=== PATIENT | male | born 1970 | race Caucasian/White ===

== ENCOUNTER 2016-10-06 18:46 | Emergency (ER) | payer OTHER ==
[~2016-10-06] VITALS: Ht 182.9 cm; Wt 94.3 kg
[~2016-10-06 18:46] MED LIST: KEFLEX250 MG PO; MOTRIN600 MG PO; NORVASC10 MG PO; PROVENTIL HFA M18 GM INH; SEPTRA PO
[2016-10-06 18:48] VITALS: BP 153/114
--- NOTE | 2016-10-06 19:02 | NUR ---
46 YO MALE BIB [place] [employer] FOR PREBOOK C/O HIP PAIN AWAKE AND ALERT TO OVERFLOW 4 MD TIFFANY PENDING.
--- NOTE | 2016-10-06 19:14 | NUR ---
Dr. Monterroso evaluating patient
--- NOTE | 2016-10-06 19:21 | NUR ---
PATIENT BIB [facility]. PATIENT EXAMINED BY DR. CERNA. PATIENT MEDICALLY CLEARED AND RELEASED IN CUSTODY IN STABLE CONDITION. ORIGINAL PRE-BOOK FORM GIVEN TO OFFICER WENCESLAO.
[2016-10-06 19:22] VITALS: BP 153/114
== END 2016-10-06 19:21 ==
LOC: MED 18:46
DX: G89.29 Other chronic pain (principal); M25.551 Pain in right hip; J45.909 Unspecified asthma, uncomplicated; E11.9 Type 2 diabetes mellitus without complications; F17.210 Nicotine dependence, cigarettes, uncomplicated

== ENCOUNTER 2018-01-07 21:14 | Emergency (ER) | payer SELFPAY ==
[~2018-01-07] VITALS: Ht 182.9 cm; Wt 97.5 kg
[~2018-01-07 21:14] MED LIST changes: +ALBU0.0912 INH; +AMLO10TA PO; +CEPH250C16 PO; +IBUP-2213 PO; -KEFLEX250 MG PO; -MOTRIN600 MG PO; -NORVASC10 MG PO; -PROVENTIL HFA M18 GM INH; -SEPTRA PO; +[UNRECOGNIZED DRUG - CODE] PO
[2018-01-07 21:17] VITALS: BP 176/101
[2018-01-07 21:36] VITALS: BP 157/95
== END 2018-01-07 21:35 ==
LOC: MED 21:14
DX: Z02.89 Encounter for other administrative examinations (principal); I10 Essential (primary) hypertension; J45.909 Unspecified asthma, uncomplicated; E11.9 Type 2 diabetes mellitus without complications; F17.210 Nicotine dependence, cigarettes, uncomplicated; F15.10 Other stimulant abuse, uncomplicated; Z79.899 Other long term (current) drug therapy
CPT/HCPCS: 12001; 90471; 99283; 99284

== ENCOUNTER 2018-02-06 13:26 | Inpatient (IN) | payer MEDICAID ==
[~2018-02-06] VITALS: Ht 182.9 cm; Wt 96.2 kg
[2018-02-06 13:34] VITALS: BP 140/87
[2018-02-06] MEDS ORDERED: NACL 0.9% 500 ML IV SCH (13:37)
--- NOTE | 2018-02-06 13:37 | NUR ---
C/O R LEG SWELLING, REDNESS, PAIN 10/10 X 2 DAYS, NO OTHER COMPLAINTS, DENIES INJURY. HX: HEP C, ASTHMA, DIABETES, HTN MEDS--- NONE
--- NOTE | 2018-02-06 13:37 | NUR ---
PT WC'D TO BED 7
--- NOTE | 2018-02-06 13:39 | NUR ---
Omar ortega in EDM - 02/06/18 at 1339 by [email or web address] C/O R LEG SWELLING, REDNESS, PAIN 02/03 X 2 DAYS, NO OTHER COMPLAINTS, DENIES INJURY. HX: HEP C, ASTHMA, DIABETES, HTN MEDS--- NONE
--- NOTE | 2018-02-06 13:39 | NUR ---
REPORT TO PAM REEVES
[2018-02-06] MEDS ORDERED: ONDANSETRON 4 MG/2 ML VIAL IVP ONE (13:40)
[2018-02-06] MEDS ORDERED: CLINDAMYCIN 900 MG in DEXTROSE 5% 100 ML IV ONE (13:40)
[2018-02-06] MEDS ORDERED: MORPHINE SULFATE 4 MG/ML SYR IVP ONE (13:40)
[2018-02-06] MEDS ORDERED: KETOROLAC 30 MG/ML VIAL IVP ONE (13:40)
[2018-02-06 13:54] LABS: BASOPHILS # (AUTO) 0.3 K/uL (0.00-0.22); HEMATOCRIT 43.4 % (36-52); HEMOGLOBIN 14.2 g/dL (12.0-18.0); LYMPHOCYTES # (AUTO) 0.7 K/uL (2.0-11.5); LYMPHOCYTES % (AUTO) 2.7 % (20.5-51.1); MEAN CORPUSCULAR HEMOGLOBIN 27 pg (27-31); MEAN CORPUSCULAR HGB CONC 33 g/dL (33-37); MONOCYTES # (AUTO) 1.3 K/uL (0.8-1.0); MONOCYTES % (AUTO) 5.1 % (1.7-9.3); NEUTROPHILS # (AUTO) 22.7 K/uL (1.8-7.7); NEUTROPHILS % (AUTO) 91.2 % (42.2-75.2); PLATELET COUNT (AUTO) 184 K/uL (140-450); RED BLOOD CELL COUNT(AUTO) 5.24 MIL/uL (4.20-6.10); RED CELL DISTRIBUTION WIDTH 14.8 % (11.6-13.7); WHITE BLOOD COUNT (AUTO) 24.9 K/uL (4.8-10.8)
[2018-02-06] MEDS ORDERED: CLINDAMYCIN 900 MG/6 ML VIAL IV ONE ×2 (14:01→21:21)
[2018-02-06] MEDS ORDERED: ONDANSETRON 4 MG/2 ML VIAL ONE (14:01)
[2018-02-06] MEDS ORDERED: KETOROLAC 30 MG/ML VIAL ONE (14:02)
[2018-02-06] MEDS ORDERED: MORPHINE SULFATE 4 MG/ML SYR ONE (14:04)
[2018-02-06 14:29] LABS: ANION GAP 11.9 (8-16); CARBON DIOXIDE 25.7 mmol/L (21-32); CREATININE 1.1 mg/dL (0.7-1.3); POTASSIUM 3.6 mmol/L (3.5-5.1)
[2018-02-06 14:35] LABS: ALBUMIN 2.9 g/dL (3.4-5.0); TOTAL BILIRUBIN 1.6 mg/dL (0.0-1.0)
[2018-02-06] MEDS ORDERED: NACL 0.9% 1,000 ML IV SCH (14:52)
[2018-02-06] MEDS ORDERED: ONDANSETRON 4 MG/2 ML VIAL IM/IVP PRN (15:05)
[2018-02-06] MEDS ORDERED: ALBUTEROL SULFATE/IPRATROPIU 3 ML SOL IH PRN (15:05)
[2018-02-06] MEDS ORDERED: ACETAMINOPHEN 325 MG TAB PO PRN (15:05)
[2018-02-06] MEDS ORDERED: DOCUSATE SODIUM 100 MG GELCAP PO PRN (15:05)
[2018-02-06] MEDS ORDERED: HYDROcodone/APAP 7.5/325 MG 1 TAB PO PRN (15:05)
--- NOTE | 2018-02-06 15:14 | NUR ---
XRAY AT BEDSIDE
[2018-02-06] MEDS ORDERED: MORPHINE SULFATE 2 MG/ML SYR IVP PRN (15:20)
[2018-02-06] MEDS: THERAHONEY GEL 42.5 GM TP SCH (15:35)
[2018-02-06] MEDS ORDERED: COMPOSITE DRESSING TP PRN (15:35)
--- NOTE | 2018-02-06 15:48 | NUR ---
PT TAKEN TO FLOOR BY RN PAM, EMT EVONNE, AND RN STUDENT
[2018-02-06 15:50] VITALS: BP 112/68
--- NOTE | 2018-02-06 15:50 | NUR ---
PATIENT WAS TRANSFERRED FROM IN [facility]. PATIENT TRANSFERRED SELF TO BED. REPORT WAS GIVEN AT BEDSIDE. VS WAS TAKEN, MRSA WAS SWABBED. PATIENT WAS AWAKE, ALERT. RESPIRATION EVEN, UNLABOR ON ROOM AIR. SKIN DRY AND WARM. IV PATENT AND INTACT. WOUND DRESSING IS DRY AND CLEAN. DENIED PAIN AT THIS TIME. PATIENT WAS ORIENTED TO ROOM, STAFF, AND CALL LIGHT. PLAN OF CARE WAS DISCUSSED WITH PATIENT. BED AT LOW POSITION, SIDE RAILS UP. CALL LIGHT WITHIN REACH. MD WAS AT BEDSIDE
[2018-02-06 15:51] LABS: PROTHROMBIN TIME 10.8 secs (10.8-13.4)
[2018-02-06 15:54] LABS: CHOL/HDL RATIO 2.4 (1-4.5); PHOSPHORUS 1.7 mg/dL (2.5-4.9); THYROID STIMULATING HORMONE 2.59 uIU/mL (0.34-3.74)
--- NOTE | 2018-02-06 15:55 | NUR ---
Patient will be admitted to care of DR. LY. Admited to [facility]. Will go to room 113. Belongings list completed. Report to LALA.
[2018-02-06] MEDS ORDERED: DEXTROSE 50% 50 ML SYR IVP PRN (16:20)
[2018-02-06] MEDS ORDERED: INSULIN LISPRO SLIDING SCALE 100 UNITS/ML VIAL SUBQ PRN (16:20)
[2018-02-06] MEDS: NACL 0.9% 1,000 ML IV SCH (16:25)
--- NOTE | 2018-02-06 17:15 | NUR ---
PATIENT COMPLAINED OF LEG PAIN 11/03, WILL MEDICATE PER ORDER
[2018-02-06] MEDS: BLOOD GLUCOSE MONITORING 1 DEV DEV FS SCH ×2 (17:24→21:10)
[2018-02-06] MEDS: KETOROLAC 30 MG/ML VIAL IVP PRN ×2 (17:35→23:49)
[2018-02-06] MEDS ORDERED: INFLUENZA VIRUS VACCINE QUAD 0.5 ML SYR IMVAC PRN (17:55)
[2018-02-06] MEDS ORDERED: PNEUMOCOCCAL VACCINE 23 MCG/0.5 ML VIAL IMVAC SCH (17:55)
--- NOTE | 2018-02-06 19:18 | NUR ---
ENDORSEMENT GIVEN TO THE CORPORATE SPECIALIST NURSE. PATIENT IS STABLE AT THIS TIME
--- NOTE | 2018-02-06 19:18 | NUR ---
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 PT DENIES PAIN AT THIS TIME. EXPLAINED PLAN OF CARE, UPDATED BOARD, CALL LIGHT WITHIN REACH, WILL CONTINUE TO MONITOR.
[2018-02-06] MEDS: CLINDAMYCIN 900 MG in DEXTROSE 5% 100 ML IV SCH (21:29)
--- NOTE | 2018-02-06 21:30 | NUR ---
DUE MEDICATION GIVEN, BG 145 NO COVERAGE NEEDED. CALL LIGHT WITHIN REACH, WILL CONTINUE TO MONITOR.
[2018-02-06 23:49] VITALS: BP 125/75
--- NOTE | 2018-02-06 23:49 | NUR ---
PT C/O PAIN IN RIGHT LEG, MEDICATED ACCORDING TO MD ORDER.
[2018-02-07] MEDS: NACL 0.9% 1,000 ML IV SCH ×3 (01:17→20:40)
--- NOTE | 2018-02-07 01:32 | NUR ---
PT RESTING IN BED, NO SIGNS OF DISTRESS, APPLIED NEW PADDING UNDER LEG, MODERATE DRAINAGE NOTED WITH ODOR.
--- NOTE | 2018-02-07 04:00 | NUR ---
PT SLEEPING IN BED, NO SIGNS OF ACUTE DISTRESS, WILL GIVE DUE ANTIBIOTIC. CALL LIGHT WITHIN REACH.
[2018-02-07] MEDS: CLINDAMYCIN 900 MG in DEXTROSE 5% 100 ML IV SCH ×3 (04:40→20:28)
--- NOTE | 2018-02-07 06:15 | NUR ---
BG 116 NO COVERAGE NEEDED, CALL LIGHT WITHIN REACH, WILL CONTINUE TO MONITOR.
[2018-02-07] MEDS: BLOOD GLUCOSE MONITORING 1 DEV DEV FS SCH ×4 (06:38→20:40)
--- NOTE | 2018-02-07 07:14 | NUR ---
ENDORSED PT TO DAY SHIFT NURSE PT IN BED ASLEEP, PT STABLE.
[2018-02-07 07:25] LABS: HEMATOCRIT 37.4 % (36-52); HEMOGLOBIN 12.1 g/dL (12.0-18.0); MEAN CORPUSCULAR HEMOGLOBIN 27 pg (27-31); MEAN CORPUSCULAR HGB CONC 32 g/dL (33-37); MEAN CORPUSCULAR VOLUME 83.8 fL (80-94); PLATELET COUNT (AUTO) 151 K/uL (140-450); RED BLOOD CELL COUNT(AUTO) 4.46 MIL/uL (4.20-6.10); RED CELL DISTRIBUTION WIDTH 15.1 % (11.6-13.7); WHITE BLOOD COUNT (AUTO) 18.1 K/uL (4.8-10.8)
[2018-02-07 07:27] LABS: ANION GAP 8.6 (8-16); CARBON DIOXIDE 26.3 mmol/L (21-32); CREATININE 0.9 mg/dL (0.7-1.3); POTASSIUM 3.9 mmol/L (3.5-5.1)
[2018-02-07 07:31] LABS: MAGNESIUM 2.1 mg/dL (1.8-2.4); PHOSPHORUS 2.9 mg/dL (2.5-4.9)
--- NOTE | 2018-02-07 07:40 | NUR ---
PATIENT WAS SLEEPING COMFORTABLY, EASILY AROUSABLE BY NAME. RESPIRATION EVEN, UNLABOR ON ROOM AIR. SKIN DRY AND WARM. IV PATENT AND INTACT. DENIED PAIN AT THIS TIME. PLAN OF CARE WAS DISCUSSED WITH PATIENT. BED AT LOW POSITION, SIDE RAILS UP. CALL LIGHT WITHIN REACH
[2018-02-07 08:00] VITALS: BP 103/66
[2018-02-07 08:00] LABS: BASOPHILS % (MANUAL) 0 % (0-2); EOSINOPHILS % (MANUAL) 0 % (0-4); LYMPHOCYTES % (MANUAL) 3 % (20-46); MONOCYTES % (MANUAL) 8 % (5-12)
[2018-02-07] MEDS: amLODIPine 5 MG TAB PO SCH (08:39)
[2018-02-07] MEDS: THERAHONEY GEL 42.5 GM TP SCH (08:40)
[2018-02-07] MEDS: LACTOBACILLUS RHAMNOSUS GG 1 EACH CAP PO SCH (08:40)
--- NOTE | 2018-02-07 08:50 | NUR ---
PATIENT'S TEMP WAS 100.4, TYLENOL WAS GIVEN PER ORDER. WILL CONTINUE TO MONITOR
--- NOTE | 2018-02-07 10:30 | NUR ---
PATIENT WAS SLEEPING COMFORTABLY. RESPIRATION EVEN, UNLABOR ON ROOM AIR. NO DISTRESS NOTED AT THIS TIME. WOUND DRESSING WAS CHANGED.
--- NOTE | 2018-02-07 11:50 | NUR ---
PATIENT WAS SLEEPING COMFORTABLY. RESPIRATION EVEN, UNLABOR ON ROOM AIR. NO DISTRESS NOTED AT THIS TIME. MEDS WERE GIVEN PER ORDER. URINE SAMPLE WAS COLLECTED AND SENT TO LAB. CALL LIGHT WITHIN REACH
[2018-02-07 12:11] LABS: APPEARANCE,URINE SLIGHTLY HAZY (CLEAR); BILIRUBIN,URINE 1+ (NEGATIVE); BLOOD, URINE NEGATIVE (NEGATIVE); COLOR,URINE AMBER (YELLOW); LEUKOCYTE ESTERASE ,URINE NEGATIVE (NEGATIVE); NITRITE, URINE NEGATIVE (NEGATIVE); UGLUCOSE TRACE (NEGATIVE)
[2018-02-07 12:18] LABS: BARBITURATE, URINE NEG. ng/ml (NEG <=200); BENZODIAZEPINE, URINE NEG. ng/mL (NEG <=200); CANNABINOID, URINE NEG. ng/mL (NEG <=50); COCAINE, URINE NEG. ng/mL (NEG <=300); OPIATE, URINE NEG. ng/mL (NEG <=2000); PHENCYCLIDINE SCREEN,URINE NEG. ng/mL (NEG <=25)
[2018-02-07 12:22] LABS: WBC,URINE 0-5 (RARE) /HPF (0-5)
[2018-02-07 12:23] LABS: RBC,URINE NONE SEEN /HPF (0-5)
--- NOTE | 2018-02-07 14:10 | NUR ---
PATIENT WAS SLEEPING COMFORTABLY. RESPIRATION EVEN, UNLABOR ON ROOM AIR. NO DISTRESS NOTED AT THIS TIME
[2018-02-07 16:00] VITALS: BP 140/73
--- NOTE | 2018-02-07 16:00 | NUR ---
PATIENT WAS SLEEPING COMFORTABLY. RESPIRATION EVEN, UNLABOR ON ROOM AIR. DENIED PAIN AT THIS TIME. NO DISTRESS NOTED AT THIS TIME
--- NOTE | 2018-02-07 18:21 | NUR ---
PATIENT AWAKE, ALERT. RESPIRATIONE EVEN, UNLABOR ON ROOM AIR. IV PATENT AND INTACT. NO DISTRESS NOTED AT THIS TIME. FAMILY AT BEDSIDE. CALL LIGHT WITHIN REACH
--- NOTE | 2018-02-07 19:15 | NUR ---
RECEIVED BEDSIDE REPORT FROM DAY SHIFT RN NESSA, PT ON CONTACT PRECAUTIONS, PT IN BED, STATES IS COMFORTABLE AT THIS TIME. ON RA, IV IN LEFT AC 22 G INFUSING NS AT 100 ML/HR, DRESSING IS CLEAN AND INTACT. EIGHT LOWER LEG DRESSING IS CLEAN AND INTACT. PT REPORTS SLIGHT PAIN BUT IS OKAY RIGHT NOW. EMPTIED URINAL 200 ML, DARK YELLOW. EXPLAINED PLAN OF CARE, UPDATED BOARD, CALL LIGHT WITHIN REACH. WILL CONTINUE TO MONITOR.
--- NOTE | 2018-02-07 19:15 | NUR ---
ENDORSEMENT GIVEN TO THE ENVIRONMENTAL ASSISTANT NURSE. PATIENT IS STABLE AT THIS TIME
--- NOTE | 2018-02-07 20:00 | NUR ---
PT REPORT HAVING DIFFICULTY BREATHING, CALL R/T, PLACED HOB TO 90 DEGREES, PLACED PT ON 2 L NC, O2 SAT 94 WITH 2 L O2 VIA NC RR 22 LABORED AND EVEN. R/T ARRIVED TO DO BREATHING TX. Addendum: 02/07/18 at 2333 by Sanjana Linder RN INSPIRATORY WHEEZING NOTED
--- NOTE | 2018-02-07 20:18 | NUR ---
PT C/O PAIN IN LEG, 10/04, WILL MEDICATE ACCORDING TO MD ORDER.
[2018-02-07] MEDS: KETOROLAC 30 MG/ML VIAL IVP PRN (20:28)
--- NOTE | 2018-02-07 20:28 | NUR ---
DUE CLEOCIN GIVEN, NO INSULIN COVERAGE NEEDED, WILL CONTINUE TO MONITOR.
--- NOTE | 2018-02-07 20:30 | NUR ---
NO SIGNS OF RESPIRATORY DISTRESS, PT COMFORTABLE IN BED, CALL LIGHT WITHIN REACH, NO INSPIRATORY WHEEZING NOTED.
--- NOTE | 2018-02-07 23:00 | NUR ---
PT RESTING IN BED NO SIGNS OF DISTRESS, CALL LIGHT WITHIN REACH, WILL CONTINUE TO MONITOR.
[2018-02-08] VITALS: BP 145/80
--- NOTE | 2018-02-08 01:10 | NUR ---
PT SLEEPING IN BED, DRESSING IS CLEAN AND INTACT, CALL LIGHT WITHIN REACH, WILL CONTINUE TO MONITOR.
--- NOTE | 2018-02-08 02:30 | NUR ---
PT RESTING IN BED, NO SIGNS OF ACUTE DISTRESS, CALL LIGHT WITHIN REACH, WILL CONTINUE TO MONITOR.
--- NOTE | 2018-02-08 04:00 | NUR ---
PT IN BED NO SIGNS OF DISTRESS CALL LIGHT WITHIN REACH, WILL CONTINUE TO MONITOR.
[2018-02-08] MEDS: CLINDAMYCIN 900 MG in DEXTROSE 5% 100 ML IV SCH ×3 (05:54→20:45)
--- NOTE | 2018-02-08 06:30 | NUR ---
PT BLOOD GLUCOSE 102 NO INSULIN NEEDED AT THIS TIME. WILL CONTINUE TO MONITOR.
[2018-02-08] MEDS: NACL 0.9% 1,000 ML IV SCH ×2 (07:04→17:04)
--- NOTE | 2018-02-08 07:20 | NUR ---
ENDORSED PT TO DAY SHIFT NURSE, PATIENT STABLE.
--- NOTE | 2018-02-08 07:22 | NUR ---
RECEIVED REPORT FROM AFFILIATE MARKETING COORDINATOR NURSE. PT IS SLEEPING IN BED, SEMI FOWLERS POSITION, PT IS EASILY AWAKEN, AAOX4, AMBULATORY, PT HAS IV ON THE LEFT AC, PATENT, INTACT, FLUSHING WELL, PT HAS RIGHT LOWER EXT. CELLULITIS, NO S/S OF RESPIRATORY DISTRESS OR DISCOMFORT NOTED, PT IS ON ROOM AIR, DISCUSSED PLAN OF CARE WITH PT, PT VERBALIZED UNDERSTANDING, SAFETY/FALL PRECAUTIONS ARE IN PLACE, CALL LIGHT IS WITHIN REACH, WILL CONTINUE TO MONITOR.
[2018-02-08] MEDS: BLOOD GLUCOSE MONITORING 1 DEV DEV FS SCH ×4 (07:36→20:45)
[2018-02-08 07:45] LABS: BASOPHILS # (AUTO) 0.1 K/uL (0.00-0.22); BASOPHILS % (AUTO) 0.3 % (0.0-2.0); EOSINOPHILS # (AUTO) 0.2 K/uL (0-0.4); HEMATOCRIT 41.4 % (36-52); LYMPHOCYTES # (AUTO) 1.1 K/uL (2.0-11.5); LYMPHOCYTES % (AUTO) 6.8 % (20.5-51.1); MEAN CORPUSCULAR HEMOGLOBIN 27 pg (27-31); MEAN CORPUSCULAR HGB CONC 32 g/dL (33-37); MEAN CORPUSCULAR VOLUME 84.3 fL (80-94); MONOCYTES # (AUTO) 1.2 K/uL (0.8-1.0); MONOCYTES % (AUTO) 7.3 % (1.7-9.3); NEUTROPHILS # (AUTO) 14.1 K/uL (1.8-7.7); NEUTROPHILS % (AUTO) 84.6 % (42.2-75.2); PLATELET COUNT (AUTO) 198 K/uL (140-450); RED BLOOD CELL COUNT(AUTO) 4.91 MIL/uL (4.20-6.10); RED CELL DISTRIBUTION WIDTH 15.1 % (11.6-13.7); WHITE BLOOD COUNT (AUTO) 16.7 K/uL (4.8-10.8)
[2018-02-08 08:00] VITALS: BP 98/59
[2018-02-08 08:11] LABS: HEPATITIS A ANTIBODY IGM Negative (Negative); HEPATITIS B CORE AB TOTAL Negative (Negative); HEPATITIS B SURFACE ANTIBODY Non Reactive (.); HEPATITIS B SURFACE ANTIGEN Negative (Negative)
[2018-02-08 08:34] LABS: ANION GAP 11.5 (8-16); CARBON DIOXIDE 25.3 mmol/L (21-32); CREATININE 0.8 mg/dL (0.7-1.3); POTASSIUM 3.8 mmol/L (3.5-5.1)
--- NOTE | 2018-02-08 08:39 | NUR ---
PATIENT HAS BEEN SCREENED AND CATEGORIZED MODERATE NUTRITION RISK. PATIENT WILL BE SEEN WITHIN 3-5 DAYS OF ADMISSION. 02/09/18 02/11/[address]
[2018-02-08] MEDS: amLODIPine 5 MG TAB PO SCH (08:50)
[2018-02-08] MEDS: LACTOBACILLUS RHAMNOSUS GG 1 EACH CAP PO SCH (08:53)
[2018-02-08] MEDS: THERAHONEY GEL 42.5 GM TP SCH (08:53)
--- NOTE | 2018-02-08 08:53 | NUR ---
PATIENT IS SLEEPING IN BED AT THIS TIME, NO S/S OF DISTRESS OR DISCOMFORT NOTED, CALL LIGHT IS WITHIN REACH.
--- NOTE | 2018-02-08 12:11 | NUR ---
WOUND CARE EVALUATION NOTE: REASON FOR EVALUATION: RIGHT LOWER LEG CELLULITIS SKIN ASSESSMENT DONE WITH THIS 29 Y/O MALE PT ADMITTED TO [facility] WITH INITIAL DX OF RLE PAIN. PAST MEDICAL HX INCLUDES HTN, ASTHMA AND IV DRUG USE. ALL ABOVE INFORMATION OBTAINED FROM ADMISSION H&P. PT IS AWAKE. SKIN IS WARM AND DRY, BLE NO HAIR GROWTH, +2 EDEMA TO RIGHT LOWER LEG FROM BELOW KNEE TO DORSAL FOOT. OLD HEALED SCARS TO LLE. BILATERAL DORSAL PEDAL PULSES PRESENT AND NORMAL. CAPILLARY REFILLED < 2 SEC. X 10 TOES. THICK CALLUS TO PLANTAR FEET.PLAN OF CARE DISCUSSED WITH PRIMARY RN AND PT. INTEGUMENTARY: -MULTIPLE TATTOO TO UPPER BODY -LEFT HEEL THICK CALLUS WITH A 2CM IN LENGTH OF DRY CRACKED HEEL -RIGHT POSTERIOR LEG (CALF) CELLULITIS WOUND 6X4X0.1, WOUND BED MOIST, PERIWOUND ERYTHEMA, WARM AND +2 EDEMA AND THIN FRAGILE SKIN. PAIN 5/10 -RIGHT LATERAL BETO-ANKLE CELLULITIS WOUND 3X3X0.1 CM, WOUND BED MOIST, PERIWOUND ERYTHEMA, WARM AND +2 EDEMA, WITH THIN FRAGILE SKIN.PAIN 5/10 RECOMMENDATIONS: -RLE US PENDING -APPLY XEROFORM TO RLE CELLULITIS WOUNDS, COVER WITH ABD DRESSING AND APPLY KERLIX ROLL, CHANGE DRESSING Q72 HOURS AND PRN IF SOILING, MONITOR PLACEMENT OF DRESSING Q SHIFT -OFFLOAD BILATERAL HEELS BY PLACING PILLOWS UNDER CALVES UNLESS OTHERWISE CONTRAINDICATED -PRESSURE REDISTRIBUTION SURFACE THERAPY -TURN AND REPOSITION Q2H, OFFLOAD SACRALCOCCYX BY TURNING RIGHT AND LEFT ALL ABOVE RECOMMENDATIONS DISCUSSED WITH PRIMARY RN AND DR. KLEIN WILL FOLLOW UP PT Q7-10 DAYS. PLEASE CONTACT WOUND CARE NURSE FOR ANY QUESTION AND CHANGE OF WOUND CONDITION.
--- NOTE | 2018-02-08 12:40 | NUR ---
PT K PAD APPLIED TO THE RIGHT LOWER EXTREMITY. WILL CONTINUE TO MONITOR.
[2018-02-08 16:00] VITALS: BP 122/87
--- NOTE | 2018-02-08 19:15 | NUR ---
ENDORSED PT TO DRY HOUSE TENDER NURSE FOR CONTINUITY OF CARE. PT STABLE AT THIS TIME.
--- NOTE | 2018-02-08 19:16 | NUR ---
RECEIVED REPORT FROM DAY SHIFT RN, FOR CONTINUITY OF CARE. PT IS A/OX4, ON ROOM AIR. PT IS ABLE TO MAKE NEEDS KNOWN, ABLE TO FOLLOW COMMANDS. PT BREATHS EQUAL AND UNLABORED. PT SKIN HAS CELLULITIS TO LEFT LEG. PT AMBULATES WITH ASSIST, NOT BEARING WEIGHT ON RIGHT LEG. PT HAS A 20G IV TO LEFT AC, ASYMPTOMATIC AND INTACT. DISCUSSED PLAN OF CARE WITH PT, PT VERBALIZED UNDERSTANDING. VITAL SIGNS WITHIN NORMAL LIMITS. PT STABLE, NO SIGNS OF DISTRESS NOTED AT THIS TIME. BED IN LOWEST POSITION, BED ALARM ON. CALL LIGHT WITHIN REACH, WILL CONTINUE TO MONITOR.
--- NOTE | 2018-02-08 20:45 | NUR ---
BLOOD SUGAR 115 AT THE TIME, NO INSULIN COVERAGE NEEDED. IVPB ANTIBIOTIC STARTED, PT TOLERATING WELL.
[2018-02-09] VITALS: BP 117/70
--- NOTE | 2018-02-09 | NUR ---
VITAL SIGNS WITHIN NORMAL LIMITS. PT STABLE, NO SIGNS OF DISTRESS NOTED AT THIS TIME. BED IN LOWEST POSITION, BED ALARM ON. CALL LIGHT WITHIN REACH, WILL CONTINUE TO MONITOR.
[2018-02-09] MEDS: NACL 0.9% 1,000 ML IV SCH ×2 (03:04→12:25)
[2018-02-09] MEDS: CLINDAMYCIN 900 MG in DEXTROSE 5% 100 ML IV SCH ×2 (04:45→12:25)
--- NOTE | 2018-02-09 04:45 | NUR ---
PT HAS 9/10 PAIN AT RIGHT LEG. ADMINISTERED MORPHINE ORDERED AND SCHEDULED ANTIBIOTIC, PT TOLERATED WELL.
[2018-02-09] MEDS: BLOOD GLUCOSE MONITORING 1 DEV DEV FS SCH ×2 (06:15→12:29)
[2018-02-09 07:26] LABS: BASOPHILS % (AUTO) 0.3 % (0.0-2.0); EOSINOPHILS # (AUTO) 0.2 K/uL (0-0.4); EOSINOPHILS % (AUTO) 1.1 % (0.0-4.0); HEMATOCRIT 38.5 % (36-52); HEMOGLOBIN 12.5 g/dL (12.0-18.0); LYMPHOCYTES # (AUTO) 1.4 K/uL (2.0-11.5); LYMPHOCYTES % (AUTO) 9.7 % (20.5-51.1); MEAN CORPUSCULAR HEMOGLOBIN 27 pg (27-31); MEAN CORPUSCULAR HGB CONC 32 g/dL (33-37); MEAN CORPUSCULAR VOLUME 83.1 fL (80-94); MONOCYTES # (AUTO) 1.4 K/uL (0.8-1.0); MONOCYTES % (AUTO) 9.5 % (1.7-9.3); NEUTROPHILS # (AUTO) 11.6 K/uL (1.8-7.7); NEUTROPHILS % (AUTO) 79.4 % (42.2-75.2); PLATELET COUNT (AUTO) 217 K/uL (140-450); RED BLOOD CELL COUNT(AUTO) 4.63 MIL/uL (4.20-6.10); RED CELL DISTRIBUTION WIDTH 15.1 % (11.6-13.7); WHITE BLOOD COUNT (AUTO) 14.6 K/uL (4.8-10.8)
--- NOTE | 2018-02-09 07:30 | NUR ---
RECEIVED BEDSIDE REPORT FROM BOILERMAKER PIPE FITTER RN. PT IS SLEEPING IN BED, AROUSABLE BY VOICE. AOX4, SPEAKS PORTUGUESE. RLE CELLULITIS, DRESSING DRY AND INTACT. PT AMBULATES WITH ASSIST, NWB ON RIGHT LEG. NO COMPLAINTS OF PAIN OR DISCOMFORT. VITALS STABLE. LUNGS CTA AND HEART RHYTHM REGULAR. IV SITE PATENT AND ASYMPTOMATIC, INFUSING IVF PER MD ORDERS. ALL SAFETY PRECAUTIONS IN PLACE, WILL CONTINUE TO MONITOR.
[2018-02-09 07:39] LABS: CREATININE 0.7 mg/dL (0.7-1.3)
[2018-02-09 07:56] LABS: ANION GAP 7.3 (8-16); CARBON DIOXIDE 28.2 mmol/L (21-32); POTASSIUM 3.5 mmol/L (3.5-5.1)
[2018-02-09 08:00] VITALS: BP 143/98
[2018-02-09] MEDS: amLODIPine 5 MG TAB PO SCH (08:59)
[2018-02-09] MEDS: LACTOBACILLUS RHAMNOSUS GG 1 EACH CAP PO SCH (08:59)
[2018-02-09] MEDS: THERAHONEY GEL 42.5 GM TP SCH (09:00)
--- NOTE | 2018-02-09 09:05 | NUR ---
ADMINISTERED SCHEDULED 0900 MEDICATIONS PER DOCTOR ORDERS. PHYSICAL THERAPY HERE TO EVALUATE PT. PT HAS AGREED TO HAVE WOUND CARE AND DRESSING CHANGE PERFORMED AFTER PHYSICAL THERAPY EVAL.
--- NOTE | 2018-02-09 09:36 | NUR ---
PATIENT COMPLAINING OF 5/10 LEG PAIN. PULLED NORCO FROM [employer] AND OFFERED TO PATIENT. PATIENT REFUSED. EXPLAINED THAT NORCO IS FOR PAIN. PT VERBALIZED UNDERSTANDING BUT REFUSES THE NORCO. STATES THAT HE WILL WAIT FOR THE MORPHINE WHEN AVAILABLE. PT ALSO REFUSING DRESSING CHANGE AT THIS TIME BECAUSE HE IS "TIRED FROM PHYSICAL THERAPY AND WANT TO SLEEP". PT AGREED TO WOUND CARE AND DRESSING CHANGE LATER TODAY. WILL OFFER AGAIN LATER TODAY. SUPPLIES PLACED AT BEDSIDE.
--- NOTE | 2018-02-09 11:40 | NUR ---
PT SLEEPING IN BED. WILL OFFER WOUND CARE/DRESSING CHANGE TO PT WHEN AWAKE.
[2018-02-09] MEDS ORDERED: ACET-9525 PO (13:05)
[2018-02-09] MEDS ORDERED: SULF-58 PO (13:05)
--- NOTE | 2018-02-09 13:16 | NUR ---
PERFORMED WOUND CARE AND CHANGED DRESSING. PHOTO TAKEN.
--- NOTE | 2018-02-09 14:35 | NUR ---
CALLED NICANOR BENNETT IN REGARDS TO FRONT WHEEL WALKER FOR PATIENT. PER DONALD, THE WALKER WILL BE DELIVERED TO THE UNIT SHORTLY. PT WILL BE DISCHARGED WHEN WALKER IS HERE.
--- NOTE | 2018-02-09 15:30 | NUR ---
WALKER HAS BEEN DELIVERED TO BEDSIDE. PT AWARE. EDUCATED PT ON HOW TO USE WALKER. PT VERBALIZED UNDERSTANDING.
--- NOTE | 2018-02-09 16:56 | NUR ---
Cotton Machine Operator Note: I met with patient at bedside. Per patient, he is currently homeless. He stated he has been homeless for over 5 years. Patient does not have an income. He told me he already has a list of homeless shelters, food baxter, and room and boards. He does not want any additional community resources. I offered him a list of alcohol/substance abuse treatment programs, he declined list. He stated prior to hospital admission he was not using any DME to ambulate. He does not have a pcp at this time. I explained to him I was going to refer him to [facility] (outpatient) and explained to him the importance of following up with his appointments at [facility]. He verbalized understanding. I faxed referral to [facility], fax number . Per Jane from [facility], [facility] [address], they received referral and made an appointment for patient on 02/10/18 at 10am, made aware of appointment information. I faxed MDs order for fww and face sheet to [facility], phone number , fax number . Per Domingo from [facility], their piledriver carpenter will deliver fww to hospital today.
--- NOTE | 2018-02-09 17:00 | NUR ---
DISCHARGE PAPERWORK, INCLUDING NEW RX AND INSTRUCTIONS TO FOLLOW UP WITH WOUND CLINIC/APPOINTMENT TIME, GIVEN TO PATIENT. ADMINISTERED PNEUMOVAX AND FLU VACCINE. VACCINATION TEACHING GIVEN TO PT. WOUND CARE TEACHING GIVEN TO PATIENT. TWO WEEKS WORTH OF WOUND CARE SUPPLIES GIVEN TO PATIENT PER MD ORDERS. PT VERBALIZED COMPLETE UNDERSTANDING OF ALL DISCHARGE TEACHING. IV SITE REMOVED WITH MINIMAL BLOOD LOSS AND LUMEN COMPLETELY INTACT. ID BANDS REMOVED. HELPED PT GET DRESSED AND GATHER ALL PERSONAL BELONGINGS TOGETHER. PT WILL LEAVE WITH ALL PERSONAL BELONGINGS AND WALKER. DISCHARGE BY ENERGY DERIVATIVES TRADER VIA WHEELCHAIR.
== END 2018-02-09 17:00 | disposition home or self-care (01) | DRG 720 ==
LOC: MED 13:26 → MTU 15:04
PROVIDERS: ADMIT General Practice; ATTEND General Practice
PROC: 3E02340 Introduction of Influenza Vaccine into Muscle, Percutaneous Approach (ICD-10-PCS; principal; 2018-02-06)
PROC: 3E0234Z Introduction of Serum, Toxoid and Vaccine into Muscle, Percutaneous Approach (ICD-10-PCS; 2018-02-06)
DX: A41.9 Sepsis, unspecified organism (principal); E44.0 Moderate protein-calorie malnutrition; E11.65 Type 2 diabetes mellitus with hyperglycemia; E83.39 Other disorders of phosphorus metabolism; L03.115 Cellulitis of right lower limb; E87.1 Hypo-osmolality and hyponatremia; E80.6 Other disorders of bilirubin metabolism; I10 Essential (primary) hypertension; F15.19 Other stimulant abuse with unspecified stimulant-induced disorder; J45.909 Unspecified asthma, uncomplicated; F17.210 Nicotine dependence, cigarettes, uncomplicated; Z59.0 Homelessness; Z23 Encounter for immunization
CPT/HCPCS: 36415; 71045; 76536; 76700; 80048; 80053; 80305; 81001; 82948; 83036; 83605; 83735; 83880; 84100; 84436; 84443; 84479; 85025; 85610; 85730; 86704; 86706; 86708; 86709; 86803; 87040; 87070; 87081; 87086; 87186; 87340; 90658; 90732; 93005; 93925; 93971; 94640; 96361; 96374; 96375; 97116; 99285; J1885; J2270; J2405; J3490; J7030; J7060; J7620; Q0092

== ENCOUNTER 2018-04-23 22:53 | Inpatient (IN) | payer MEDICAID ==
[~2018-04-23] VITALS: Ht 182.9 cm; Wt 95.7 kg
[~2018-04-23 22:53] MED LIST changes: +ACET-9525 PO; -CEPH250C16 PO; +SULF-58 PO; -[UNRECOGNIZED DRUG - CODE] PO
[2018-04-23 23:00] VITALS: BP 163/90
[2018-04-24] MEDS ORDERED: LEVOFLOXACIN 500 MG/D5W PREMIX 100 ML IV ONE (00:25)
[2018-04-24 01:06] LABS: HEMATOCRIT 48.8 % (36-52); HEMOGLOBIN 15.5 g/dL (12.0-18.0); MEAN CORPUSCULAR HEMOGLOBIN 26 pg (27-31); MEAN CORPUSCULAR HGB CONC 32 g/dL (33-37); MEAN CORPUSCULAR VOLUME 82.2 fL (80-94); PLATELET COUNT (AUTO) 308 K/uL (140-450); RED BLOOD CELL COUNT(AUTO) 5.94 MIL/uL (4.20-6.10); WHITE BLOOD COUNT (AUTO) 12.3 K/uL (4.8-10.8)
[2018-04-24 01:11] LABS: ANION GAP 10.7 (8-16); CARBON DIOXIDE 31.5 mmol/L (21-32); POTASSIUM 4.2 mmol/L (3.5-5.1)
[2018-04-24 01:13] LABS: EOSINOPHILS % (MANUAL) 2 % (0-4); LYMPHOCYTES % (MANUAL) 11 % (20-46); MONOCYTES % (MANUAL) 4 % (5-12)
[2018-04-24 01:17] LABS: ALBUMIN 3.1 g/dL (3.4-5.0); TOTAL BILIRUBIN 0.6 mg/dL (0.0-1.0)
[2018-04-24] MEDS ORDERED: KETOROLAC 30 MG/ML VIAL IVP ONE (02:05)
[2018-04-24] MEDS ORDERED: traMADol 50 MG TAB PO ONE (02:05)
[2018-04-24] MEDS ORDERED: DOCUSATE SODIUM 100 MG GELCAP PO PRN (02:40)
[2018-04-24] MEDS ORDERED: HYDROcodone/APAP 7.5/325 MG 1 TAB PO PRN (02:40)
[2018-04-24] MEDS ORDERED: ACETAMINOPHEN 325 MG TAB PO PRN (02:40)
[2018-04-24] MEDS ORDERED: ONDANSETRON 4 MG/2 ML VIAL IM/IVP PRN (02:40)
[2018-04-24] MEDS ORDERED: MORPHINE SULFATE 4 MG/ML SYR IM SCH (03:00)
[2018-04-24 03:10] LABS: PROTHROMBIN TIME 10.8 secs (10.8-13.4)
[2018-04-24 03:29] LABS: MAGNESIUM 2.1 mg/dL (1.8-2.4); PHOSPHORUS 3.6 mg/dL (2.5-4.9)
[2018-04-24 03:30] LABS: CHOL/HDL RATIO 2.8 (1-4.5); FREE T4 (FREE THYROXINE) 1.21 ng/dL (0.76-1.46); THYROID STIMULATING HORMONE 2.83 uIU/mL (0.34-3.74)
[2018-04-24] MEDS ORDERED: MORPHINE SULFATE 4 MG/ML SYR IVP SCH (03:45)
[2018-04-24 04:00] VITALS: BP 136/65
[2018-04-24] MEDS: DEXT 5% /NACL 0.9% 1,000 ML IV SCH (04:05)
[2018-04-24] MEDS ORDERED: ALBUTEROL SULFATE/IPRATROPIU 3 ML SOL IH PRN (04:45)
[2018-04-24] MEDS: PIPER/TAZO 3.375GM/D5W PREMIX 50 ML IV SCH ×3 (05:31→22:14)
[2018-04-24] MEDS ORDERED: PIPERACILLIN/TAZOBACTAM 3.375 GM VIAL IV ONE (05:33)
[2018-04-24] MEDS ORDERED: VANCOMYCIN PER PHARMACY MC PRN (07:45)
[2018-04-24] MEDS: ASPIRIN 81 MG TAB.CHEW PO SCH (09:00)
[2018-04-24] MEDS: ATORVASTATIN 20 MG TAB PO SCH (09:00)
[2018-04-24] MEDS ORDERED: VANCOMYCIN 1,000 MG in DEXTROSE 5% 250 ML IV SCH (09:00)
[2018-04-24] MEDS: amLODIPine 5 MG TAB PO SCH (09:00)
[2018-04-24] MEDS: VANCOMYCIN 1GM/DEXT 5% PREMIX 200 ML IV SCH ×2 (10:03→16:25)
[2018-04-24 10:10] VITALS: BP 115/69
[2018-04-24] MEDS ORDERED: KETOROLAC 30 MG/ML VIAL IM PRN (11:50)
[2018-04-24] MEDS ORDERED: KETOROLAC 30 MG/ML VIAL IM SCH (13:00)
[2018-04-24 16:00] VITALS: BP 107/65
[2018-04-24 20:00] VITALS: BP 121/77
[2018-04-25] VITALS: BP 113/76
[2018-04-25] MEDS: VANCOMYCIN 1GM/DEXT 5% PREMIX 200 ML IV SCH ×3 (00:12→16:51)
[2018-04-25] MEDS: DEXT 5% /NACL 0.9% 1,000 ML IV SCH ×2 (05:45→11:57)
[2018-04-25] MEDS: PIPER/TAZO 3.375GM/D5W PREMIX 50 ML IV SCH ×3 (05:46→22:11)
[2018-04-25 08:00] VITALS: BP 120/80
[2018-04-25 08:10] LABS: T4 (THYROXINE) 8.9 ug/dL (4.5-12.0)
[2018-04-25] MEDS: ASPIRIN 81 MG TAB.CHEW PO SCH (08:50)
[2018-04-25] MEDS: ATORVASTATIN 20 MG TAB PO SCH (08:50)
[2018-04-25] MEDS: amLODIPine 5 MG TAB PO SCH (08:51)
[2018-04-25 10:14] LABS: HEPATITIS A ANTIBODY IGM Negative (Negative); HEPATITIS B CORE AB TOTAL Negative (Negative); HEPATITIS B SURFACE ANTIBODY Non Reactive (.); HEPATITIS B SURFACE ANTIGEN Negative (Negative)
[2018-04-25 11:05] LABS: BASOPHILS # (AUTO) 0.1 K/uL (0.00-0.22); BASOPHILS % (AUTO) 0.8 % (0.0-2.0); EOSINOPHILS # (AUTO) 0.2 K/uL (0-0.4); EOSINOPHILS % (AUTO) 2.4 % (0.0-4.0); HEMATOCRIT 41.5 % (36-52); HEMOGLOBIN 13.3 g/dL (12.0-18.0); LYMPHOCYTES # (AUTO) 1.2 K/uL (2.0-11.5); LYMPHOCYTES % (AUTO) 13.7 % (20.5-51.1); MEAN CORPUSCULAR HEMOGLOBIN 26 pg (27-31); MEAN CORPUSCULAR HGB CONC 32 g/dL (33-37); MEAN CORPUSCULAR VOLUME 81.5 fL (80-94); MONOCYTES # (AUTO) 0.7 K/uL (0.8-1.0); MONOCYTES % (AUTO) 7.7 % (1.7-9.3); NEUTROPHILS # (AUTO) 6.8 K/uL (1.8-7.7); NEUTROPHILS % (AUTO) 75.4 % (42.2-75.2); PLATELET COUNT (AUTO) 259 K/uL (140-450); RED CELL DISTRIBUTION WIDTH 15.4 % (11.6-13.7); WHITE BLOOD COUNT (AUTO) 8.9 K/uL (4.8-10.8)
[2018-04-25 11:35] LABS: ANION GAP 13.1 (8-16); CARBON DIOXIDE 27.5 mmol/L (21-32); POTASSIUM 3.6 mmol/L (3.5-5.1)
[2018-04-25 11:39] LABS: MAGNESIUM 2.1 mg/dL (1.8-2.4); PHOSPHORUS 2.9 mg/dL (2.5-4.9)
[2018-04-25 16:00] VITALS: BP 116/76
[2018-04-26] MEDS: VANCOMYCIN 1GM/DEXT 5% PREMIX 200 ML IV SCH ×3 (01:28→17:25)
[2018-04-26] MEDS: PIPER/TAZO 3.375GM/D5W PREMIX 50 ML IV SCH ×3 (06:03→20:22)
[2018-04-26 07:11] LABS: BASOPHILS # (AUTO) 0.1 K/uL (0.00-0.22); EOSINOPHILS # (AUTO) 0.3 K/uL (0-0.4); EOSINOPHILS % (AUTO) 3.6 % (0.0-4.0); HEMATOCRIT 44.3 % (36-52); HEMOGLOBIN 14.2 g/dL (12.0-18.0); LYMPHOCYTES # (AUTO) 1.4 K/uL (2.0-11.5); LYMPHOCYTES % (AUTO) 14.5 % (20.5-51.1); MEAN CORPUSCULAR HEMOGLOBIN 26 pg (27-31); MEAN CORPUSCULAR HGB CONC 32 g/dL (33-37); MEAN CORPUSCULAR VOLUME 81.9 fL (80-94); MONOCYTES # (AUTO) 0.8 K/uL (0.8-1.0); MONOCYTES % (AUTO) 8.3 % (1.7-9.3); NEUTROPHILS # (AUTO) 6.8 K/uL (1.8-7.7); NEUTROPHILS % (AUTO) 72.6 % (42.2-75.2); PLATELET COUNT (AUTO) 281 K/uL (140-450); RED BLOOD CELL COUNT(AUTO) 5.41 MIL/uL (4.20-6.10); RED CELL DISTRIBUTION WIDTH 15.8 % (11.6-13.7); WHITE BLOOD COUNT (AUTO) 9.4 K/uL (4.8-10.8)
[2018-04-26 08:00] VITALS: BP 135/94
[2018-04-26 08:12] LABS: CREATININE 0.9 mg/dL (0.7-1.3)
[2018-04-26 09:09] LABS: MAGNESIUM 2.1 mg/dL (1.8-2.4); PHOSPHORUS 3.6 mg/dL (2.5-4.9)
[2018-04-26] MEDS: amLODIPine 5 MG TAB PO SCH (10:00)
[2018-04-26] MEDS: ASPIRIN 81 MG TAB.CHEW PO SCH (10:00)
[2018-04-26] MEDS: ATORVASTATIN 20 MG TAB PO SCH (10:00)
[2018-04-26] MEDS: DEXT 5% /NACL 0.9% 1,000 ML IV SCH ×2 (10:03→21:17)
[2018-04-26 16:00] VITALS: BP 137/91
[2018-04-27] MEDS: VANCOMYCIN 1GM/DEXT 5% PREMIX 200 ML IV SCH ×2 (00:46→09:08)
[2018-04-27] MEDS: PIPER/TAZO 3.375GM/D5W PREMIX 50 ML IV SCH ×2 (04:15→13:33)
[2018-04-27 07:54] LABS: BASOPHILS # (AUTO) 0.1 K/uL (0.00-0.22); BASOPHILS % (AUTO) 1.4 % (0.0-2.0); EOSINOPHILS # (AUTO) 0.5 K/uL (0-0.4); EOSINOPHILS % (AUTO) 6.4 % (0.0-4.0); HEMATOCRIT 45.8 % (36-52); HEMOGLOBIN 14.5 g/dL (12.0-18.0); LYMPHOCYTES # (AUTO) 1.4 K/uL (2.0-11.5); LYMPHOCYTES % (AUTO) 18.5 % (20.5-51.1); MEAN CORPUSCULAR HEMOGLOBIN 26 pg (27-31); MEAN CORPUSCULAR HGB CONC 32 g/dL (33-37); MONOCYTES # (AUTO) 0.8 K/uL (0.8-1.0); MONOCYTES % (AUTO) 10.4 % (1.7-9.3); NEUTROPHILS # (AUTO) 4.9 K/uL (1.8-7.7); NEUTROPHILS % (AUTO) 63.3 % (42.2-75.2); PLATELET COUNT (AUTO) 265 K/uL (140-450); RED BLOOD CELL COUNT(AUTO) 5.58 MIL/uL (4.20-6.10); RED CELL DISTRIBUTION WIDTH 15.1 % (11.6-13.7); WHITE BLOOD COUNT (AUTO) 7.7 K/uL (4.8-10.8)
[2018-04-27 08:00] VITALS: BP 142/96
[2018-04-27 08:08] LABS: MAGNESIUM 2.1 mg/dL (1.8-2.4); PHOSPHORUS 3.9 mg/dL (2.5-4.9)
[2018-04-27] MEDS ORDERED: LACT10CA1 PO (08:24)
[2018-04-27] MEDS ORDERED: SULF-59 PO (08:24)
[2018-04-27] MEDS ORDERED: ASPI81CT95 PO (08:27)
[2018-04-27] MEDS ORDERED: ATOR20TA40 PO (08:27)
[2018-04-27] MEDS: ATORVASTATIN 20 MG TAB PO SCH (09:07)
[2018-04-27] MEDS: ASPIRIN 81 MG TAB.CHEW PO SCH (09:07)
[2018-04-27] MEDS: amLODIPine 5 MG TAB PO SCH (09:08)
[2018-04-27 11:28] LABS: ANION GAP 15.7 (8-16); CARBON DIOXIDE 23.6 mmol/L (21-32); POTASSIUM 4.3 mmol/L (3.5-5.1)
== END 2018-04-27 15:15 | disposition home or self-care (01) | DRG 720 ==
LOC: MED 22:53 → MTU 04-24 02:22
PROVIDERS: ADMIT General Practice; ATTEND General Practice
DX: A41.9 Sepsis, unspecified organism (principal); E11.51 Type 2 diabetes mellitus with diabetic peripheral angiopathy without gangrene; E44.0 Moderate protein-calorie malnutrition; E87.8 Other disorders of electrolyte and fluid balance, not elsewhere classified; E11.65 Type 2 diabetes mellitus with hyperglycemia; E87.1 Hypo-osmolality and hyponatremia; L03.115 Cellulitis of right lower limb; I10 Essential (primary) hypertension; J45.909 Unspecified asthma, uncomplicated; L97.819 Non-pressure chronic ulcer of other part of right lower leg with unspecified severity; F43.9 Reaction to severe stress, unspecified; B96.4 Proteus (mirabilis) (morganii) as the cause of diseases classified elsewhere; B95.61 Methicillin susceptible Staphylococcus aureus infection as the cause of diseases classified elsewhere; R65.20 Severe sepsis without septic shock; Z68.28 Body mass index [BMI] 28.0-28.9, adult; Z87.891 Personal history of nicotine dependence; Z79.899 Other long term (current) drug therapy; Z91.14 Patient's other noncompliance with medication regimen; Z79.84 Long term (current) use of oral hypoglycemic drugs
CPT/HCPCS: 36415; 71045; 73700; 76881; 80048; 80053; 80202; 82150; 82948; 83036; 83605; 83690; 83735; 83880; 84100; 84436; 84439; 84443; 84479; 84484; 85025; 85610; 85730; 86704; 86706; 86708; 86709; 86803; 87040; 87070; 87186; 87340; 93970; 99285; J1885; J1956; J2270; J2543; J3370; J7030; J7042; J7060; Q0092

== ENCOUNTER 2019-05-28 12:53 | Emergency (ER) | payer SELFPAY ==
[~2019-05-28] VITALS: Ht 182.9 cm; Wt 95.3 kg
[~2019-05-28 12:53] MED LIST changes: +ASPI81CT95 PO; -IBUP-2213 PO; +LACT10CA1 PO; -SULF-58 PO; +SULF-59 PO
[2019-05-28 13:00] VITALS: BP 144/99
--- NOTE | 2019-05-28 13:40 | NUR ---
PT TAKEN TO BED 3 W/ STEAY GAIT.
--- NOTE | 2019-05-28 13:41 | NUR ---
Patient ambulated to bed 3. RN evaluating patient at bedside.
--- NOTE | 2019-05-28 13:47 | NUR ---
Dr. Fisher is evaluating the patient at bedside.
[2019-05-28] MEDS ORDERED: ceFAZolin 1,000 MG VIAL IM ONE (13:50)
[2019-05-28] MEDS ORDERED: WATER STERILE 10 ML MC ONE (14:14)
--- NOTE | 2019-05-28 14:19 | NUR ---
CALLED PHARMACY, CLARIFIED ANCEF ORDERED. PER PHARMACY, RECONSTITUTE 2G ANCEF WITH 2.5ML STERILE WATER, OK TO ADMINISTER IN ONE SITE.
--- NOTE | 2019-05-28 14:20 | NUR ---
49/M PRESENTS TO ED, C/O BLE CELLULITIS. PT C/O R GREATER THAN LOWER EXTREMITY PAIN, NOTED WITH ABRASIONS, SWELLING AND ERYTHEMA, +CMS. PT DENIES FEVER/CHILLS. PT AWAKE AND ALERT, SKIN NORMAL COLOR WARM AND DRY, RR EVEN AND UNLABORED. HX DM, HTN, ASTHMA RX INHALERS
--- NOTE | 2019-05-28 14:30 | NUR ---
PT IS HOMELESS, PT STATED HE IS LIVING IN STREETS. REFUSED HOMELESS RESOURCE PACKET. PT WITH APPROPRIATE CLOTHING FOR WEATHER.
[2019-05-28 14:41] VITALS: BP 144/99
--- NOTE | 2019-05-28 14:41 | NUR ---
Patient discharged with v/s stable by Dr Fisher. Written and verbal after care instructions given and explained by Dr Fisher. Patient alert, oriented and verbalized understanding of instructions. Ambulatory with steady gait. All questions addressed prior to discharge by Dr Fisher. ID band removed by Dr Fisher. Patient advised to follow up with PMD by Dr Fisher. Rx of KEFLEX given by Dr Fisher. Patient educated on indication of medication including possible reaction and side effects by Dr Fisher. Opportunity to ask questions provided and answered by Dr Fisher.
== END 2019-05-28 14:28 | disposition home or self-care (01) ==
LOC: MED 12:53
DX: L03.115 Cellulitis of right lower limb (principal); L03.116 Cellulitis of left lower limb; J45.909 Unspecified asthma, uncomplicated; E11.9 Type 2 diabetes mellitus without complications; I10 Essential (primary) hypertension; Z79.82 Long term (current) use of aspirin; Z79.899 Other long term (current) drug therapy
CPT/HCPCS: 96372; 99283; J0690

== ENCOUNTER 2019-06-19 10:41 | Inpatient (IN) | payer OTHER ==
[~2019-06-19] VITALS: Ht 182.9 cm; Wt 95.3 kg
[2019-06-19 10:48] VITALS: BP 127/80
--- NOTE | 2019-06-19 10:54 | NUR ---
PT AMB WITH CANE TO BED 3.
--- NOTE | 2019-06-19 11:08 | NUR ---
49 yo male, presents to ER for left hand laceration today. 10 pain. laceration noted 1 inch to left first finger. 1 inch laceration noted to left thumb. bleeding controlled. pt states injured using skill saw. pt unaware of last tetanus shot. upon assessment, wound noted to right lower extremity. pt states wound has been present for "a while." pt placed in gown. ERMD aware of pt status. allergies: NKA Med Hx: DM
[2019-06-19] MEDS ORDERED: fentaNYL 0.05 MG/ML VIAL NS ONE (11:20)
[2019-06-19] MEDS ORDERED: LIDOCAINE MPF 1% 10 MG/ML VIAL INJ ONE (11:20)
[2019-06-19] MEDS ORDERED: NACL 0.9% 1,000 ML IV SCH (11:20)
[2019-06-19] MEDS ORDERED: AMPICILLIN/SULBACTAM 3 GM in NACL 0.9% MINI-BAG PLUS 100 ML IV ONE (11:20)
[2019-06-19] MEDS ORDERED: AMPICILLIN/SULBACTAM 3 GM VIAL ONE (11:42)
[2019-06-19 11:44] LABS: BASOPHILS # (AUTO) 0.1 K/uL (0.00-0.22); BASOPHILS % (AUTO) 1.2 % (0.0-2.0); EOSINOPHILS # (AUTO) 0.1 K/uL (0-0.4); EOSINOPHILS % (AUTO) 1.3 % (0.0-4.0); HEMATOCRIT 42.4 % (36-52); HEMOGLOBIN 14.2 g/dL (12.0-18.0); LYMPHOCYTES % (AUTO) 11.4 % (20.5-51.1); MEAN CORPUSCULAR HEMOGLOBIN 27 pg (27-31); MEAN CORPUSCULAR HGB CONC 34 g/dL (33-37); MEAN CORPUSCULAR VOLUME 79.5 fL (80-94); MONOCYTES # (AUTO) 0.7 K/uL (0.8-1.0); MONOCYTES % (AUTO) 7.5 % (1.7-9.3); NEUTROPHILS # (AUTO) 6.8 K/uL (1.8-7.7); NEUTROPHILS % (AUTO) 78.6 % (42.2-75.2); PLATELET COUNT (AUTO) 210 K/uL (140-450); RED BLOOD CELL COUNT(AUTO) 5.34 MIL/uL (4.20-6.10); RED CELL DISTRIBUTION WIDTH 15.7 % (11.6-13.7); WHITE BLOOD COUNT (AUTO) 8.7 K/uL (4.8-10.8)
[2019-06-19] MEDS ORDERED: fentaNYL 0.05 MG/ML VIAL ONE (11:45)
[2019-06-19 11:53] LABS: ANION GAP 8.3 (8-16); CARBON DIOXIDE 29.5 mmol/L (21-32); POTASSIUM 3.8 mmol/L (3.5-5.1)
--- NOTE | 2019-06-19 11:54 | NUR ---
Xray at bedside
[2019-06-19] MEDS ORDERED: fentaNYL 0.05 MG/ML VIAL IVP ONE (12:25)
[2019-06-19] MEDS ORDERED: LIDOCAINE MPF 1% 5 ML ONE (12:30)
--- NOTE | 2019-06-19 13:00 | NUR ---
Pt resting in bed. Vital Signs Stable. Will continue to monitor.
--- NOTE | 2019-06-19 14:16 | NUR ---
Dr. Mckenna at bedside for laceration to left hand
[2019-06-19] MEDS ORDERED: LORazepam 2 MG/ML VIAL IM/IVP PRN (14:35)
[2019-06-19] MEDS ORDERED: ONDANSETRON 4 MG/2 ML VIAL IM/IVP PRN (14:35)
[2019-06-19] MEDS ORDERED: MORPHINE SULFATE 2 MG/ML SYR IVP PRN (14:35)
[2019-06-19] MEDS ORDERED: ACETAMINOPHEN 325 MG TAB PO PRN (14:35)
[2019-06-19] MEDS ORDERED: HYDROcodone/APAP 5/325 MG 1 TAB TAB PO PRN (14:35)
[2019-06-19] MEDS ORDERED: INSULIN LISPRO SLIDING SCALE 100 UNITS/ML VIAL SUBQ PRN (14:50)
[2019-06-19] MEDS ORDERED: DEXTROSE 50% 50 ML SYR IVP PRN (14:50)
--- NOTE | 2019-06-19 14:59 | NUR ---
Pt provided urine for urine sample.
--- NOTE | 2019-06-19 15:09 | NUR ---
APPLIED NONADHERENT AND GAUZE DRESSING RIGHT RIGHT HAND WITHOUT ANY ISSUES. APPLIED LEFT THUMB SPICA TO LEFT HAND WITHOUT ANY ISSUES
[2019-06-19 15:25] LABS: PROTHROMBIN TIME 10.1 secs (10.8-13.4)
[2019-06-19 15:30] VITALS: BP 132/94
--- NOTE | 2019-06-19 15:30 | NUR ---
RECEIVED BEDSIDE REPORT FROM ED NURSE. PT RESTING IN BED UPON ARRIVAL. ABLE TO MAKE NEEDS KNOWN. RESPIRATIONS EVEN AND UNLABORED WITH NO SOB OR RESPIRATORY DISTRESS. SKIN WARM AND DRY TO TOUCH. IV SITE IN RAC 20G IS CLEAN, DRY, AND INTACT. MRSA SWAB COLLECTED AND PATIENT CHANGED INTO BLUE GOWN. VITAL SIGNS ARE: SAFETY MEASURES IN PLACE. WILL CONTINUE TO MONITOR.
--- NOTE | 2019-06-19 15:32 | NUR ---
Transfer of care and report given to LALA Briscoe
--- NOTE | 2019-06-19 15:33 | NUR ---
Patient will be admitted to care of Dr. Brito. Admited to [facility]. Will go to room 121A. Belongings list completed. Report to LALA Briscoe.
[2019-06-19 15:34] LABS: MAGNESIUM 2.1 mg/dL (1.8-2.4); PHOSPHORUS 2.9 mg/dL (2.5-4.9); THYROID STIMULATING HORMONE 4.25 uIU/mL (0.34-3.74)
[2019-06-19] MEDS ORDERED: ALBUTEROL SULFATE/IPRATROPIU 3 ML SOL IH PRN (15:55)
[2019-06-19 16:09] LABS: APPEARANCE,URINE CLEAR (CLEAR); BILIRUBIN,URINE NEGATIVE (NEGATIVE); BLOOD, URINE NEGATIVE (NEGATIVE); COLOR,URINE YELLOW (YELLOW); LEUKOCYTE ESTERASE ,URINE NEGATIVE (NEGATIVE); NITRITE, URINE NEGATIVE (NEGATIVE); UGLUCOSE NEGATIVE (NEGATIVE)
[2019-06-19 16:27] LABS: BARBITURATE, URINE NEG. ng/ml (NEG <=200); BENZODIAZEPINE, URINE NEG. ng/mL (NEG <=200); CANNABINOID, URINE NEG. ng/mL (NEG <=50); COCAINE, URINE NEG. ng/mL (NEG <=300); OPIATE, URINE NEG. ng/mL (NEG <=2000); PHENCYCLIDINE SCREEN,URINE NEG. ng/mL (NEG <=25)
--- NOTE | 2019-06-19 16:30 | NUR ---
BLOOD SUGAR IS 152. 2 UNITS OF INSULIN WILL BE GIVEN WITH DINNER. SAFETY MEASURES IN PLACE.
[2019-06-19] MEDS: NACL 0.9% 1,000 ML IV SCH (17:12)
[2019-06-19] MEDS: BLOOD GLUCOSE MONITORING 1 DEV DEV FS SCH ×2 (17:12→21:00)
--- NOTE | 2019-06-19 17:12 | NUR ---
ADMINISTERED SCHED MED PRESCRIBED PER MD ORDER. PT TOLERATED WELL. MEDICATION EDUCATION PERFORMED. PT VERBALIZED UNDERSTANDING. SAFETY MEASURES IN PLACE. WILL CONTINUE TO MONITOR.
[2019-06-19] MEDS ORDERED: VANCOMYCIN PER PHARMACY MC PRN (17:20)
[2019-06-19] MEDS ORDERED: PIPERACILLIN/TAZOBACTAM 3.375 GM VIAL IV ONE (18:50)
[2019-06-19] MEDS: PIPERACILLIN/TAZOBACTAM 3.375 GM in DEXTROSE 5% 50 ML IV SCH (18:59)
--- NOTE | 2019-06-19 18:59 | NUR ---
ADMINISTERED SCHED MED PRESCRIBED PER MD ORDER. PT TOLERATED WELL. MEDICATION EDUCATION PERFORMED. PT VERBALIZED UNDERSTANDING. SAFETY MEASURES IN PLACE. WILL CONTINUE TO MONITOR.
--- NOTE | 2019-06-19 19:30 | NUR ---
ENDORSED TO NIGHTSHIFT NURSE. PT IS STABLE
--- NOTE | 2019-06-19 19:33 | NUR ---
RECEIVED PT FROM JULIANA REEVES KPT IS AAOX4 RESTING ON BED BLE CELL;ULITIS AND SCABS AND OPEN WOUNDS, LEFT HAND MULTIPLES OPEN WOUNDS, IV ON RT AC INFUSING WELL NKOT DISTRESS NOTED AT THIS TIME INITIAL ASSESSMENT DONE
[2019-06-19] MEDS ORDERED: VANCOMYCIN HCL 2,000 MG in NACL 0.9% 500 ML IV SCH (19:50)
--- NOTE | 2019-06-19 19:52 | NUR ---
RECEIVED PATIENT ON ROOM AIR, PULSE OX SAT 96%. PT DENIES SOB. PRN HHN NOT INDICATED AT THIS TIME. PT MADE AWARE OF ORDERED MEDICATION FREQUENCY AND INSTRUCTED TO CALL NEEDED FOR SOB. NO ACUTE RESPIRATORY DISTRESS NOTED AT THIS TIME. WILL CONTINUE TO MONITOR.
[2019-06-19 20:00] VITALS: BP 130/94
--- NOTE | 2019-06-19 21:30 | NUR ---
BLOOD SUGAR TEST 108, PT REMAIN STALBLE LEFT HKAND ON PILLOW ELEVATION
[2019-06-19] MEDS ORDERED: VANCOMYCIN 1,000 MG VIAL ONE (22:07)
[2019-06-20] VITALS: BP 146/90
--- NOTE | 2019-06-20 | NUR ---
PT SLEEPING WELL NOT DISTRESS NOTED REMAINSTBLE AT THIS TIME
[2019-06-20] MEDS ORDERED: PIPERACILLIN/TAZOBACTAM 3.375 GM VIAL IV ONE ×2 (00:11→04:50)
[2019-06-20] MEDS: PIPERACILLIN/TAZOBACTAM 3.375 GM in DEXTROSE 5% 50 ML IV SCH ×4 (00:19→17:22)
[2019-06-20 04:00] VITALS: BP 150/100
--- NOTE | 2019-06-20 04:00 | NUR ---
PT HAS BEEN MONITORING CLOSE, LEFT HAND ON ELEVTION IV ON RT AC INFUSING WELL NOT DISTRESS NOTED
[2019-06-20] MEDS: BLOOD GLUCOSE MONITORING 1 DEV DEV FS SCH ×4 (05:43→21:30)
[2019-06-20 06:32] LABS: ANION GAP 12.7 (8-16); CARBON DIOXIDE 25.4 mmol/L (21-32); CREATININE 0.9 mg/dL (0.6-1.3); POTASSIUM 4.1 mmol/L (3.5-5.1)
[2019-06-20 06:40] LABS: CHOL/HDL RATIO 2.6 (1-4.5); MAGNESIUM 1.9 mg/dL (1.8-2.4); PHOSPHORUS 2.7 mg/dL (2.5-4.9)
--- NOTE | 2019-06-20 06:44 | NUR ---
BLOOD SUGAR TEST 89 . PT REMAIN CALM NOT DISTRESS NOTED ,LEFT HAND ON PILLOW ELEVATION AND IV ON RT AC INFUSING WELL. PT WILLBE ENDOROSED TO DAY SHIFT NURSE FOR CONTINUE OF CARE
[2019-06-20] MEDS: NACL 0.9% 1,000 ML IV SCH ×2 (07:14→23:54)
[2019-06-20 07:19] LABS: BASOPHILS # (AUTO) 0.1 K/uL (0.00-0.22); BASOPHILS % (AUTO) 0.9 % (0.0-2.0); EOSINOPHILS # (AUTO) 0.1 K/uL (0-0.4); EOSINOPHILS % (AUTO) 1.4 % (0.0-4.0); HEMATOCRIT 40.5 % (36-52); HEMOGLOBIN 13.5 g/dL (12.0-18.0); LYMPHOCYTES # (AUTO) 0.9 K/uL (2.0-11.5); MEAN CORPUSCULAR HEMOGLOBIN 27 pg (27-31); MEAN CORPUSCULAR HGB CONC 33 g/dL (33-37); MEAN CORPUSCULAR VOLUME 79.8 fL (80-94); MONOCYTES # (AUTO) 0.9 K/uL (0.8-1.0); MONOCYTES % (AUTO) 8.7 % (1.7-9.3); NEUTROPHILS # (AUTO) 8.4 K/uL (1.8-7.7); PLATELET COUNT (AUTO) 180 K/uL (140-450); RED BLOOD CELL COUNT(AUTO) 5.08 MIL/uL (4.20-6.10); RED CELL DISTRIBUTION WIDTH 15.6 % (11.6-13.7); WHITE BLOOD COUNT (AUTO) 10.5 K/uL (4.8-10.8)
--- NOTE | 2019-06-20 07:30 | NUR ---
RECEIVED REPORT FROM GYPSUM BLOCK SETTER NURSE .PT IS IN BED SLEEPING IN STABLE CONDITION. NO DISTRESS NOTED. CALL LIGHT IN REACH.
[2019-06-20 08:00] VITALS: BP 129/82
--- NOTE | 2019-06-20 08:41 | NUR ---
PATIENT HAS BEEN SCREENED AND CATEGORIZED HIGH NUTRITION RISK. PATIENT WILL BE SEEN WITHIN 1-2 DAYS OF ADMISSION. 06/20/19-06/21/[address]
[2019-06-20] MEDS: ASPIRIN 81 MG TAB.CHEW PO SCH (08:51)
[2019-06-20] MEDS: ATORVASTATIN 20 MG TAB PO SCH (08:51)
[2019-06-20] MEDS: amLODIPine 5 MG TAB PO SCH (08:51)
[2019-06-20] MEDS: NICOTINE TRANSD SYS 21 MG/24 HR PATCH TD SCH (08:51)
--- NOTE | 2019-06-20 09:30 | NUR ---
PT IS SLEEPING AT THIS TIME. PT RESPONDS TO VERBAL STIMULI. NO COMPLAINS OF PAIN OR DISTRESS NOTED . CALL LIGHT IN REACH.
--- NOTE | 2019-06-20 11:57 | NUR ---
WOUND CARE EVALUATION NOTE: REASON FOR EVALUATION: RIGHT AND LEFT LOWER LEG ULCERS SKIN ASSESSMENT DONE WITH THIS 49 Y/O MALE PT ADMITTED TO [facility] WITH INITIAL DX OF RLE CELLULITIS. PAST MEDICAL HISTORY HYPERTENSION, DM, ASTHMA, MEDICAL NON-COMPLIANCE, POLYSUBSTANCE ABUSE, IV DRUG ABUSE, TOBACCO ABUSE, HEPATITIS C. LEFT THUMB LACERATIONS STATUS POST CUTTING WITH A SKILL SAW ON 06/19/2019. ALL ABOVE INFORMATION OBTAINED FROM ADMISSION H&P. PT. SKIN IS WARM AND DRY, POOR PERSONAL HYGIENE OBSERVED. BLE ERYTHEMA WITH NO HAIR GROWTH, +1 EDEMA TO BILATERAL LOWER LEGS. BILATERAL DORSAL PEDAL PULSES PRESENT AND NORMAL, THICKEN FUNGAL NAILS OBSERVED X 10 T0ES. PLAN OF CARE DISCUSSED WITH PT. PT. VERBALIZING UNDERSTANDING NEED REINFORCEMENT. INTEGUMENTARY: -XEROSIS TO BLE -LEFT HAND LACERATION SPLINT DRESSING DRY CLEAN AND INTACT. -CELLULITIS RIGHT AND LEFT LE, DRY SCALY SKIN WITH ERYTHEMA, AND +1 EDEMAS, ERYTHEMA EXTENDED TO POSTERIOR LE. 2 PARTIAL THICKNESS SKIN LOSS ULCERATION TO RLE SITE #1 RIGHT ANTERIOR LE 2X2X0.1CM WOUND BED IS 100% YELLOW, DRY, BETO WOUND SKIN SCALY WITH ERYTHEMA., NO ODOR. RLE SITE #2 RIGHT POSTERIOR LE 2X3X0.1CM WOUND BED IS 100% YELLOW, DRY, BETO WOUND SKIN SCALY. LEFT LE POSTERIOR 2.5X2X0.1CM WOUND BED IS 100% YELLOW, DRY, BETO WOUND SKIN SCALY NO ODOR -LEFT AND RIGHT HEELS THICK CALLUS WITH FISSURES RECOMMENDATIONS: -LEFT THUMB, PENDING ORTHO EVALUATION. -BLE CELLULITIS CLEANSES WITH NS. PAT DRY, APPLY HYDROGEL AND COVER WITH DRY DRESSING QD AND PRN IF SOILING -OFFLOAD BILATERAL HEELS BY PLACING PILLOWS UNDER CALVES UNLESS OTHERWISE CONTRAINDICATED -ENCOURAGE PT TO TURN AND REPOSITION Q2H, OFFLOAD SACRALCOCCYX BY TURNING RIGHT AND LEFT -CONTINUE TO FOLLOW RD RECOMMENDATIONS PLEASE CONTACT WOUND CARE NURSE FOR ANY QUESTION AND CHANGE OF WOUND CONDITION. Addendum: 06/20/19 at 1540 by Humera Faulkner (Grace) RN SPOKE TO DR. SAN HE WILL CONTACT ORTHOPEDIC TO FOLLOW UP THE LEFT THUMB FX, KEEP DRESSING DRY AND CLEAN AT THIS TIME. PRIMARY RN AND CN MADE AWARE.
[2019-06-20 12:00] VITALS: BP 115/77
--- NOTE | 2019-06-20 13:00 | NUR ---
PT IS SLEEPING AT THIS TIME. PT RESPONDS TO VERBAL STIMULI. NO COMPLAINS OF PAIN OR DISTRESS NOTED . CALL LIGHT IN REACH.
[2019-06-20] MEDS: VANCOMYCIN 1,000 MG in DEXTROSE 5% 250 ML IV SCH ×2 (13:08→21:33)
--- NOTE | 2019-06-20 14:11 | NUR ---
DC PLANNIN YRS OLD MALE PATIENT WAS ADMITTED FROM HOME WITH A DX OF DIABETIC FOOT WOUND AND CELLULITES, PT HAS A HX OF BILATERAL LE PAD, COPD/ASTHMA, HEP C, HTN AND POLYSUBSTANCE ABUSE. VENOUS US SHOWED (-) FOR DVT CONSULT WITH DR GUILLEN FOR LT AND RT HAND AVULSION FRACTURE OF THUMB , DR ALLEN FOR RECURRENT CELLULITIS. ADMINISTERED IV ABX ZOSYN AND VANCOMYCIN . BLOOD AND WOUND CULTURES PENDING. DC PLAN TO GO HOME WHEN STABLE CM TO FOLLOW. Addendum: 06/21/19 at 1117 by Kay Gonzalez CM DC PLANNING: SEEN BY DR ALLEN ID CONTINUE IV ABX ,CONTINUE LOCAL WOUND CARE , KEEP LEFT HAND ELEVATED. PT STABLE FOR DISCHARGE AND FOLLOW UP WITH DR GUILLEN OUT PATIENT DR RIGGINS OFFICE NUMBER GIVEN TO THE PATIENT.
[2019-06-20] MEDS ORDERED: HYDRAGUARD CREAM TP PRN (14:15)
--- NOTE | 2019-06-20 15:00 | NUR ---
PT IS SITTING IN BED AT THIS TIME. PT IS ALERT AND RESPONSIVE. NO DISTRESS NOTED. NO COMPLAINS OF PAIN. CALL LIGHT IN REACH.
[2019-06-20 16:00] VITALS: BP 123/84
--- NOTE | 2019-06-20 18:43 | NUR ---
PT IS SITTING IN BED AT THIS TIME. PT IS ALERT AND RESPONSIVE. NO DISTRESS NOTED. NO COMPLAINS OF PAIN. CALL LIGHT IN REACH.
--- NOTE | 2019-06-20 19:15 | NUR ---
REPORT GIVEN TO NIGHT NURSE. PATIENT IS AWAKE AND ALERT WITH SIGNS OF DISTRESS OR COMPLAINTS OF ANY PAIN. PT. IS LAYING BED AND IS IN STABLE CONDITION.
--- NOTE | 2019-06-20 19:16 | NUR ---
RECEIVED BEDSIDE REPORT FROM AM SHIFT NURSE. PATIENT IS LYING IN BED, AWAKE AND ALERT. NO SOB OR DISTRESS NOTED. ON ROOM AIR. PATIENT IS AMBULATORY. IV ACCESS ON RIGHT AC 20 GAUGE. PATENT, INTACT AND INFUSING WELL. NOTED WITH DIABETIC FOOT WOUND AND CELLULITIS AND LEFT HAND LACERATION, COVERED WITH DRESSING. BED IN LOW, SAFETY MEASURES IN PLACE. INITIAL ASSESSMENT DONE. CALL LIGHT PLACED WITHIN PATIENT REACH. WILL CONTINUE TO MONITOR PATIENT.
--- NOTE | 2019-06-20 21:30 | NUR ---
PATIENT HAD A BLOOD GLUCOSE RESULT OF 113. NO INSULIN COVERAGE NEEDED AT THIS TIME.
--- NOTE | 2019-06-20 23:11 | NUR ---
PATIENT ENDORSED TO CHARGE NURSE DEBBI FOR CONTINUITY OF CARE. PATIENT IN STABLE CONDITION. CALL LIGHT WITHIN PATIENT REACH.
--- NOTE | 2019-06-20 23:15 | NUR ---
RECEIVED PT FOR CONTINUITY OF CARE FROM LALA PACE. AWAKE ,ALERT AND ORIENTED. WITH IVF INFUSING WELL ON THE RT AC. BED ON LOW POSITION. CALL LIGHT AND URINAL WITHIN EASY REACH. WILL CONTINUE TO MONITOR.
[2019-06-21] VITALS: BP 132/89
[2019-06-21] MEDS: HYDRAGUARD CREAM TP SCH ×2 (01:33→13:10)
--- NOTE | 2019-06-21 02:00 | NUR ---
MADE ROUNDS. ASLEEP. NO S/S OF ANY DISCOMFORT /PAIN NOTED.
--- NOTE | 2019-06-21 04:00 | NUR ---
MADE ROUNDS. PT IS SLEEPING. WITH NO S/ OF ANY PAIN NOTED. WILL CONTINUE TO MONITOR.
[2019-06-21] MEDS: VANCOMYCIN 1,000 MG in DEXTROSE 5% 250 ML IV SCH ×2 (05:03→13:08)
[2019-06-21 06:08] LABS: BASOPHILS # (AUTO) 0.1 K/uL (0.00-0.22); BASOPHILS % (AUTO) 1.3 % (0.0-2.0); EOSINOPHILS # (AUTO) 0.3 K/uL (0-0.4); EOSINOPHILS % (AUTO) 3.7 % (0.0-4.0); HEMOGLOBIN 14.4 g/dL (12.0-18.0); LYMPHOCYTES # (AUTO) 1.3 K/uL (2.0-11.5); LYMPHOCYTES % (AUTO) 16.1 % (20.5-51.1); MEAN CORPUSCULAR HEMOGLOBIN 27 pg (27-31); MEAN CORPUSCULAR HGB CONC 32 g/dL (33-37); MEAN CORPUSCULAR VOLUME 82.8 fL (80-94); MONOCYTES % (AUTO) 12.4 % (1.7-9.3); NEUTROPHILS # (AUTO) 5.5 K/uL (1.8-7.7); NEUTROPHILS % (AUTO) 66.5 % (42.2-75.2); PLATELET COUNT (AUTO) 189 K/uL (140-450); RED BLOOD CELL COUNT(AUTO) 5.44 MIL/uL (4.20-6.10); RED CELL DISTRIBUTION WIDTH 16.3 % (11.6-13.7); WHITE BLOOD COUNT (AUTO) 8.2 K/uL (4.8-10.8)
--- NOTE | 2019-06-21 06:30 | NUR ---
BLOOD SUGAR WAS CHECKED RESULT 97. NO INSULIN NEEDED.
[2019-06-21 06:32] LABS: ANION GAP 8.7 (8-16); CARBON DIOXIDE 27.4 mmol/L (21-32); CREATININE 0.9 mg/dL (0.6-1.3); POTASSIUM 4.1 mmol/L (3.5-5.1)
[2019-06-21] MEDS: BLOOD GLUCOSE MONITORING 1 DEV DEV FS SCH ×2 (07:03→12:27)
--- NOTE | 2019-06-21 07:15 | NUR ---
ENDORSED PT IN STABLE CONDITION TO AM NURSE.
--- NOTE | 2019-06-21 07:51 | NUR ---
RECEIVED BED SIDE REPORT FROM PM RN PT AWAKE IN BED PT APPEARS STABLE AND IN NO APPARENT DISTRESS. ALL SAFETY MEASURES ARE IN PLACE WILL CONTINUE TO MONITOR.
[2019-06-21 08:00] VITALS: BP 136/76
--- NOTE | 2019-06-21 09:16 | NUR ---
FREQUENT ROUNDING ON PT PT AWAKE IN BED. PT APPEARS STABLE AND IN NO APPARENT DISTRESS. ALL SAFETY MEASURES ARE IN PLACE WILL CONTINUE TO MONITOR.
[2019-06-21] MEDS: ATORVASTATIN 20 MG TAB PO SCH (10:03)
[2019-06-21] MEDS: amLODIPine 5 MG TAB PO SCH (10:03)
[2019-06-21] MEDS: NICOTINE TRANSD SYS 21 MG/24 HR PATCH TD SCH (10:04)
[2019-06-21] MEDS: ASPIRIN 81 MG TAB.CHEW PO SCH (10:04)
--- NOTE | 2019-06-21 11:34 | NUR ---
FREQUENT ROUNDING ON PT PT APPEARS STABLE AND IN NO APPARENT DISTRESS. ALL SAFETY MEASURES ARE IN PLACE WILL CONTINUE TO MONITOR.
[2019-06-21] MEDS ORDERED: LACT10CA1 PO (11:49)
[2019-06-21] MEDS ORDERED: ALBU0.0912 INH (11:49)
[2019-06-21] MEDS ORDERED: AMLO10TA PO (11:49)
[2019-06-21] MEDS ORDERED: CLIN300C2 PO (11:49)
[2019-06-21] MEDS ORDERED: ASPI81CT95 PO (11:49)
--- NOTE | 2019-06-21 12:55 | NUR ---
REVIEWED DISCHARGE INSTRUCTIONS WITH PT. PT WANTED TO SPEAK WITH A DR ONE MORE TIME. PT WAS CONCERNED ABOUT HIS DISCHARGE CONSIDERING HIS WOUND ON HIS HAND. WILL NOTIFY THE DR.
--- NOTE | 2019-06-21 14:57 | NUR ---
06/21/19 RD INITIAL ASSESSMENT COMPLETED PLEASE REFER TO NUTRITION ASSESSMENT UNDER CARE ACTIVITY FOR ESTIMATED NUTRITIONAL NEEDS. 1. CONTINUE CCHO 60 GM DIET TOLERATED 2. RD PROVIDED NUTRITION EDUCATION HANDOUTS ON DIABETES. PT DECLINED VERBAL EDUCATION. 3. RECOMMEND KACI BID FOR WOUND HEALING 4. RD TO FOLLOW-UP 5-7 DAYS, LOW RISK GERA BATEMAN RD
--- NOTE | 2019-06-21 15:15 | NUR ---
DR. WHITE SPOKE WITH THE PATIENT PT AGREED WITH PLAN OF CARE. REMOVED ID BAND. REMOVED IV IV TIP INTACT. ALL SAFETY MEASURES ARE IN PLACE. PT AWARE OF FOLLOW UP APPOINTMENT. PT HAS PRESCRIPTION FOR ANTIBIOTICS. ANSWERED ALL QUESTIONS FOR THE PATIENT. PROVIDED PATIENT WITH RESOURCE PACKET FOR HOMELESS SHELTERS. PROVIDED PT WITH SACK LUNCH FROM [employer] FOR HOMELESS MEALS. PROVIDED PT WITH CARMINA PASS FROM HOUSE SUPERVISIORS. PT GATHERING PERSONAL ITEMS OFFERED PT WHEEL CHAIR. PATIENT STATED HE WANTED TO AMBULATE OFF THE UNIT.
== END 2019-06-21 16:44 | disposition home or self-care (01) | DRG 563 ==
LOC: MED 10:41 → UNDOADMIN 14:46 → MTU 14:46
PROVIDERS: ADMIT General Practice; ATTEND General Practice
PROC: 3E0234Z Introduction of Serum, Toxoid and Vaccine into Muscle, Percutaneous Approach (ICD-10-PCS; principal; 2019-06-19)
DX: S62.502A Fracture of unspecified phalanx of left thumb, initial encounter for closed fracture (principal); L03.115 Cellulitis of right lower limb; J98.11 Atelectasis; D68.59 Other primary thrombophilia; E87.1 Hypo-osmolality and hyponatremia; L97.919 Non-pressure chronic ulcer of unspecified part of right lower leg with unspecified severity; L03.116 Cellulitis of left lower limb; E11.622 Type 2 diabetes mellitus with other skin ulcer; S61.012A Laceration without foreign body of left thumb without damage to nail, initial encounter; J45.909 Unspecified asthma, uncomplicated; F19.10 Other psychoactive substance abuse, uncomplicated; E11.51 Type 2 diabetes mellitus with diabetic peripheral angiopathy without gangrene; J44.9 Chronic obstructive pulmonary disease, unspecified; I87.2 Venous insufficiency (chronic) (peripheral); I10 Essential (primary) hypertension; F17.210 Nicotine dependence, cigarettes, uncomplicated; W26.8XXA Contact with other sharp object(s), not elsewhere classified, initial encounter; Y93.89 Activity, other specified; Y92.89 Other specified places as the place of occurrence of the external cause; Y99.8 Other external cause status; Z79.4 Long term (current) use of insulin; Z79.899 Other long term (current) drug therapy; Z91.19 Patient's noncompliance with other medical treatment and regimen; Z86.19 Personal history of other infectious and parasitic diseases; Z71.6 Tobacco abuse counseling; Z23 Encounter for immunization
CPT/HCPCS: 36415; 71045; 73130; 73590; 76881; 80048; 80305; 81003; 82948; 83036; 83605; 83690; 83735; 83880; 84100; 84443; 84484; 85025; 85610; 85651; 85730; 86140; 87040; 87070; 87075; 87081; 87186; 87205; 90715; 93970; 96365; 96375; 99285; J0295; J1644; J1815; J2001; J2270; J2543; J3010; J3370; J7030; J7060; Q0092

== ENCOUNTER 2020-12-21 13:26 | Emergency (ER) | payer MEDICAID, SELFPAY ==
[~2020-12-21] VITALS: Ht 182.9 cm; Wt 102.1 kg
[~2020-12-21 13:26] MED LIST changes: -ACET-9525 PO; +ATOR20TA40 PO; +FURO-570 PO; +LISI20TA29 PO; +METO25TA PO; +PANT40EC56 PO; +POTA8TER12 PO
[2020-12-21 13:30] VITALS: BP 154/97
--- NOTE | 2020-12-21 13:38 | NUR ---
pt ambulated to bed 4
--- NOTE | 2020-12-21 13:48 | NUR ---
50yo m, with known hx of cellulitis, c/o bilateral LE edema x 1 month. pt complains of 10/10 pain on BLE. no injury or trauma to area. denies sob. pmh: htn, asthma, hep c, dm meds: none nka
--- NOTE | 2020-12-21 14:35 | NUR ---
dr. ugalde bedside evaluating pt
[2020-12-21] MEDS: KETOROLAC 60 MG/2 ML VIAL IM ONE (14:49)
[2020-12-21] MEDS: BACITRACIN OINT 500 UNITS/GM PKT TP ONE ×2 (14:49→14:57)
[2020-12-21] MEDS ORDERED: CEPH-588 PO (14:52)
[2020-12-21] MEDS ORDERED: IBUP-2213 PO (14:52)
--- NOTE | 2020-12-21 14:57 | NUR ---
Pt bandages removed by dr. ugalde during evaluation. Upon assessment skin is pink, dry and has dry skin flaking off. On R leg noticeable amount of dry skin is falling off. R foot is brown on plantar side along with toes. L leg is pink to touch with dry skin, but no noticeable skin peeling off at this moment.
--- NOTE | 2020-12-21 15:01 | NUR ---
JARED WILLARD BEDSIDE REDRESSING PT WOUNDS AT THIS MOMENT. PT PROVIDED WITH ANTI-BACTERIAL CREAM AND FRESH BANDAGES
[2020-12-21 15:08] VITALS: BP 154/97
--- NOTE | 2020-12-21 15:09 | NUR ---
Patient discharged with v/s stable. Written and verbal after care instructions about cellulitis given and explained. Patient alert, oriented and verbalized understanding of instructions. Ambulatory with steady gait. All questions addressed prior to discharge. ID band removed. Patient advised to follow up with PMD. Rx of keflex and ibuprofen given. Patient educated on indication of medication including possible reaction and side effects. Opportunity to ask questions provided and answered.
== END 2020-12-21 15:09 | disposition home or self-care (01) ==
LOC: MED 13:26
DX: L03.115 Cellulitis of right lower limb (principal); L03.116 Cellulitis of left lower limb
CPT/HCPCS: 96372; 99283; J1885

== ENCOUNTER 2020-12-24 15:21 | Inpatient (IN) | payer MEDICAID, SELFPAY ==
[~2020-12-24] VITALS: Ht 182.9 cm; Wt 102.1 kg
[~2020-12-24 15:21] MED LIST changes: +CEPH-588 PO; +IBUP-2213 PO
--- NOTE | 2020-12-24 15:30 | NUR ---
PT COTY TO BED 01 VIA SORAYA.
[2020-12-24 15:37] VITALS: BP 154/97
[2020-12-24] MEDS ORDERED: cefTRIAXone 1,000 MG in DEXT 5% MINI-BAG PLUS 50 ML IV ONE (15:45)
--- NOTE | 2020-12-24 15:45 | NUR ---
50 Y/O MALE BROUGHT IN FOR SOB. RESP IS EVEN AND LABORED, LUNGS ARE DIM WITH AUDIBLE WHEEZING. 02 APPLIED VNA @6lpm, 02 SAT 96%. AOX4, ABLE TO MAKE ALL NEEDS KNOWN. NON-PRODUCTIVE COUGH NOTED. CELLULITIS NOTED ON BLE, PT STATES HE WAS SEEN IN THE LAST WEEK FOR THIS ISSUE. EDEMA NOTED IN BLE +3, SKIN IS RED AND WARM TO TOUCH. PMHX: HTN, HEP C, DM HOME MEDS: ATB, LASIX (NOT TAKING MEDS PER PT) NKDA
--- NOTE | 2020-12-24 16:10 | NUR ---
FLORICULTURIST AT BEDSIDE TAKING BLOOD.
[2020-12-24 16:12] LABS: HEMATOCRIT 42.4 % (36-52); HEMOGLOBIN 13.7 g/dL (12.0-18.0); MEAN CORPUSCULAR HEMOGLOBIN 27 pg (27-31); MEAN CORPUSCULAR HGB CONC 32 g/dL (33-37); MEAN CORPUSCULAR VOLUME 84.6 fL (80-94); PLATELET COUNT (AUTO) 205 K/uL (140-450); RED BLOOD CELL COUNT(AUTO) 5.01 MIL/uL (4.20-6.10); RED CELL DISTRIBUTION WIDTH 15.8 % (11.6-13.7); WHITE BLOOD COUNT (AUTO) 22.2 K/uL (4.8-10.8)
--- NOTE | 2020-12-24 16:15 | NUR ---
RADIOLOGY TAKING CXR AT BEDSIDE
[2020-12-24 16:22] LABS: CARBON DIOXIDE 26.4 mmol/L (21-32); CREATININE 1.3 mg/dL (0.6-1.3); POTASSIUM 4.4 mmol/L (3.5-5.1); TOTAL BILIRUBIN 1.2 mg/dL (0.0-1.0)
[2020-12-24 16:26] LABS: LYMPHOCYTES % (MANUAL) 4 % (20-46); MONOCYTES % (MANUAL) 3 % (5-12)
[2020-12-24] MEDS ORDERED: cefTRIAXone 1,000 MG VIAL ONE (16:33)
--- NOTE | 2020-12-24 16:35 | NUR ---
DR. TEMPLE AT BEDSIDE ASSESSING PT. MADE AWARE OF CELLULITIS AND EKG RESULTS PERFORMED AT BEDSIDE.
[2020-12-24] MEDS ORDERED: ACETAMINOPHEN 325 MG TAB PO PRN (17:40)
[2020-12-24] MEDS ORDERED: HYDROcodone/APAP 5/325 MG 1 TAB TAB PO PRN (17:40)
[2020-12-24] MEDS ORDERED: MAGNESIUM OXIDE 400 MG TAB PO PRN (17:40)
[2020-12-24] MEDS ORDERED: SODIUM PHOS / POTASSIUM PHOS 1 PKT PDR PO PRN (17:40)
[2020-12-24] MEDS ORDERED: MORPHINE SULFATE 2 MG/ML SYR IVP PRN (17:40)
[2020-12-24] MEDS ORDERED: ALBUTEROL SULFATE/IPRATROPIU 3 ML SOL IH PRN (17:40)
[2020-12-24] MEDS ORDERED: POTASSIUM CHLORIDE 10 MEQ TABER PO PRN (17:40)
[2020-12-24] MEDS ORDERED: ONDANSETRON 4 MG/2 ML VIAL IM/IVP PRN (17:40)
[2020-12-24] MEDS ORDERED: DOCUSATE SODIUM 100 MG GELCAP PO PRN (17:40)
[2020-12-24] MEDS: NACL 0.9% 1,000 ML IV SCH (18:13)
[2020-12-24 18:15] LABS: MAGNESIUM 1.6 mg/dL (1.8-2.4); PHOSPHORUS 2.5 mg/dL (2.5-4.9)
--- NOTE | 2020-12-24 18:50 | NUR ---
COVID TEST DONE AND WALKED TO LAB
[2020-12-24 18:55] VITALS: BP 144/88
--- NOTE | 2020-12-24 18:55 | NUR ---
RT AT BEDSIDE TO APPLY BIPAP ON PT
[2020-12-24 19:19] LABS: APPEARANCE,URINE CLEAR (CLEAR); BILIRUBIN,URINE 1+ (NEGATIVE); BLOOD, URINE 1+ (NEGATIVE); COLOR,URINE ORANGE (YELLOW); LEUKOCYTE ESTERASE ,URINE NEGATIVE (NEGATIVE); NITRITE, URINE NEGATIVE (NEGATIVE); PH,URINE 5.5 (5.0-9.0); UGLUCOSE NEGATIVE (NEGATIVE)
--- NOTE | 2020-12-24 19:31 | NUR ---
Pt report given to MARU REEVES. Transfer of care at this time.
[2020-12-24 19:32] LABS: BARBITURATE, URINE NEGATIVE ng/ml (NEG <=200); BENZODIAZEPINE, URINE NEGATIVE ng/mL (NEG <=200); CANNABINOID, URINE NEGATIVE ng/mL (NEG <=50); COCAINE, URINE NEGATIVE ng/mL (NEG <=300); OPIATE, URINE NEGATIVE ng/mL (NEG <=2000); PHENCYCLIDINE SCREEN,URINE NEGATIVE ng/mL (NEG <=25)
[2020-12-24 20:01] LABS: HYALINE CASTS, URINE 0-10 /LPF (None Seen); RBC,URINE 0-5 /HPF (0-5); WBC,URINE 0-5 /HPF (0-5)
--- NOTE | 2020-12-24 20:06 | NUR ---
1855 patient was very short of breath. talked to dr sandhu about putting patient on bipap. placed patient on ipap18 epap8 rr18 100%fio2. patient let me put bipap on him.
--- NOTE | 2020-12-24 20:28 | NUR ---
PT. SITTING IN HIGH FOWLERS POSITION, VOICES NO COMPLAINTS AT THIS TIME. WILL CONTINUE TO MONITOR
[2020-12-24 21:00] VITALS: BP 151/84
[2020-12-24] MEDS: METOPROLOL 25 MG TAB PO SCH (21:00)
[2020-12-24] MEDS ORDERED: METOPROLOL 5 MG/5 ML VIAL IV ONE (21:20)
[2020-12-24] MEDS ORDERED: CLINDAMYCIN 600 MG/4 ML VIAL ONE (21:21)
[2020-12-24] MEDS: CLINDAMYCIN 600 MG in DEXTROSE 5% 50 ML IV SCH (21:31)
--- NOTE | 2020-12-24 22:19 | NUR ---
lowered fio2 to 40% post abg results. will titrate fio2 to keep sats greter than 92%
[2020-12-24 22:59] VITALS: BP 121/79
--- NOTE | 2020-12-24 22:59 | NUR ---
lowered rr on bipap from 18 to 14 post abg results
[2020-12-25 01:10] VITALS: BP 112/72
--- NOTE | 2020-12-25 01:25 | NUR ---
PT. AXILLARY TEMPERATURE AT 101.6, GIVEN PRN TYLENOL MEDICATION AND COLD COMPRESS TO LOWER FEVER.
--- NOTE | 2020-12-25 01:32 | NUR ---
decreased fio2 to 30%. decreased ipap to 16 due to high tidal volumes
--- NOTE | 2020-12-25 02:10 | NUR ---
RECHECEKED AXILLARY TEMP. = 98.4
[2020-12-25 03:16] VITALS: BP 112/72
--- NOTE | 2020-12-25 04:45 | NUR ---
PT. IN HIGH FOWLERS POSITION. NO DISTRESS NOTED. WILL CONT. TO MONITOR
--- NOTE | 2020-12-25 05:51 | NUR ---
RT AT BEDSIDE.
[2020-12-25] MEDS ORDERED: CLINDAMYCIN 600 MG/4 ML VIAL ONE (06:03)
[2020-12-25] MEDS: CLINDAMYCIN 600 MG in DEXTROSE 5% 50 ML IV SCH (06:08)
--- NOTE | 2020-12-25 06:45 | NUR ---
LAB AT BEDSIDE
[2020-12-25 06:57] LABS: BASOPHILS # (AUTO) 0.1 K/uL (0.00-0.22); BASOPHILS % (AUTO) 0.6 % (0.0-2.0); EOSINOPHILS # (AUTO) 0.1 K/uL (0-0.4); EOSINOPHILS % (AUTO) 0.5 % (0.0-4.0); HEMATOCRIT 43.6 % (36-52); HEMOGLOBIN 14.2 g/dL (12.0-18.0); LYMPHOCYTES # (AUTO) 0.5 K/uL (2.0-11.5); LYMPHOCYTES % (AUTO) 2.2 % (20.5-51.1); MEAN CORPUSCULAR HEMOGLOBIN 27 pg (27-31); MEAN CORPUSCULAR HGB CONC 33 g/dL (33-37); MEAN CORPUSCULAR VOLUME 83.4 fL (80-94); MONOCYTES # (AUTO) 0.3 K/uL (0.8-1.0); MONOCYTES % (AUTO) 1.4 % (1.7-9.3); NEUTROPHILS # (AUTO) 23.2 K/uL (1.8-7.7); NEUTROPHILS % (AUTO) 95.3 % (42.2-75.2); PLATELET COUNT (AUTO) 135 K/uL (140-450); RED BLOOD CELL COUNT(AUTO) 5.23 MIL/uL (4.20-6.10); RED CELL DISTRIBUTION WIDTH 16.1 % (11.6-13.7); WHITE BLOOD COUNT (AUTO) 24.3 K/uL (4.8-10.8)
--- NOTE | 2020-12-25 07:15 | NUR ---
REPORT GIVEN TO LALA GREER AND LALA HARRISON. TRANSFER OF CARE AT THIS TIME.
--- NOTE | 2020-12-25 07:16 | NUR ---
REPORT AND TRANSFER OF CARE RECEIVED FROM LALA MAHONEY.
--- NOTE | 2020-12-25 07:17 | NUR ---
PATIENT IN ROOM OBSERVED RESTING, PT IS ON BIPAP @30%, FLUIDS NS@20MLHR, URINAL 400CC SUBHA URINE EMPTIED AT THIS TIME.
--- NOTE | 2020-12-25 07:52 | NUR ---
REPORT GIVEN TO LALA MORENO TELE FOR ADMISSION.
--- NOTE | 2020-12-25 07:58 | NUR ---
TRANSFERRED TO [facility] 105-B ON BIPAP TO MASK REMOVED OXYGEN LINE FROM 50 PSI WALL OUTLET RECONNECTED TO E-TANK WITH ADEQUATE PSI FOR TRANSFER GOOD CHEST RISE AND AERATION THROUGHOUT BILATERAL LUNG WARREN AIRWAY PATENT TOLERATED TRANSFER WELL WITHOUT COMPLICATIONS NOTED SATURATION 98% HR 27 RR 23-24 BPM
[2020-12-25 08:05] VITALS: BP 103/75
--- NOTE | 2020-12-25 08:05 | NUR ---
Patient will be admitted to care of DR HANSON. Admited to TELE. Will go to room 105B. Belongings list completed. Report to LALA MORENO.
--- NOTE | 2020-12-25 08:05 | NUR ---
PT ARRIVED TO UNIT VIA GURNEY. REPORT WAS GIVEN BY ER NURSE. PT IS AWAKE AND ALERT. A&OX4. ON BIPAP WITH BREATHING UNLABORED. O2 SAT IS 97%. PT IS CONTINENT OF THE BOWEL AND BLADDER. URINAL AT BEDSIDE FOR VOIDING. SKIN IS WARM AND DRY. BILATERAL LE CELLULITIS WITH INTACT SKIN. CELLULITIS IS WARM AND REDNESS IS APPARENT. IV IS IN THE RIGHT AC 20 GAUGE RUNNING NS AT 20 ML PER HOUR PER ORDER. PT IS STABLE. WILL CONTINUE TO MONITOR.
[2020-12-25] MEDS ORDERED: VANCOMYCIN PER PHARMACY MC PRN (08:45)
[2020-12-25] MEDS ORDERED: FUROSEMIDE 40 MG/4 ML VIAL IVP SCH (09:00)
[2020-12-25 09:51] LABS: ANION GAP 12.2 (8-16); CARBON DIOXIDE 24.7 mmol/L (21-32); POTASSIUM 3.9 mmol/L (3.5-5.1)
--- NOTE | 2020-12-25 10:00 | NUR ---
RECEIVED CRITICAL LAB OF TROPONIN 0.142. LAB IS TRENDING DOWN.
[2020-12-25] MEDS: ASPIRIN 81 MG TAB.CHEW PO SCH (10:21)
[2020-12-25] MEDS: LACTOBACILLUS RHAMNOSUS GG 1 EACH CAP PO SCH (10:21)
[2020-12-25] MEDS: PANTOPRAZOLE 40 MG INJ VIAL IVP SCH (10:21)
--- NOTE | 2020-12-25 10:40 | NUR ---
MEDICATIONS NOT GIVEN FOR LOW BP; LISINOPRIL, METOPROLOL, AMLODIPINE, AND LASIX. BP WAS 100/[address] SAN AT BEDSIDE ASSESSING PT. DOCTOR WAS NOTIFIED OF HOLDING MEDICATIONS. DR. SAN DISCUSSED CT ANGIO WITH CONTRAST TO PT. RISKS WERE IDENTIFIED AND QUESTIONS WERE ANSWERED. PT AGREES TO GO THROUGH WITH CT ANGIO WITH CONTRAST. CONSENT WAS SIGNED AT BEDSIDE.
[2020-12-25] MEDS: METOPROLOL 25 MG TAB PO SCH ×2 (10:43→20:25)
[2020-12-25] MEDS: amLODIPine 5 MG TAB PO SCH (10:43)
[2020-12-25] MEDS: lisinopriL 20 MG TAB PO SCH (10:44)
[2020-12-25] MEDS: VANCOMYCIN HCL 1.25 GM in DEXTROSE 5% 250 ML IV SCH ×2 (10:57→23:05)
[2020-12-25 12:00] VITALS: BP 117/77
--- NOTE | 2020-12-25 12:30 | NUR ---
PT IS SLEEPING. CHEST RISE AND FALL IS SYMMETRICAL. ON BIPAP WITH O2 SAT AT 100%. ST ON TELE MONITOR. NO DISTRESS NOTED.
[2020-12-25] MEDS ORDERED: PIPERACILLIN/TAZOBACTAM 3.375 GM VIAL IV ONE (12:47)
--- NOTE | 2020-12-25 13:02 | NUR ---
RECEIVED CRITICAL LAB, LACTIC ACID LEVEL 28.2. NOTIFIED DR. SAN VIA TEXT MESSAGE.
[2020-12-25] MEDS: PIPERACILLIN/TAZOBACTAM 3.375 GM in DEXTROSE 5% 50 ML IV SCH ×2 (13:24→17:41)
--- NOTE | 2020-12-25 14:07 | NUR ---
DC PLANNIN YRS OLD MALE PATIENT WAS ADMITTED FROM HOME WITH A DX OF CHF EXACERBATION, ELEVATED TROPS, CELLULITIS. PT HAS A HX OF CHF, HTN, CHRONIC BLE CELLULITIS METH USE AND ASTHMA. CXR SHOWED CHF . RAPID COVID TEST NEGATIVE. ON BIPAP FIO2 30% SATING 97%. ADMINISTERED IV ABX ZOSYN AND VANCO AND CONTINUED HOME MEDS. CONSULTED WITH ARCHITECTURAL REPRESENTATIVE , ID, AND PULMO. CONSULTED WITH ID, PULMO AND CARDIO. DC PLAN TO GO HOME WHEN STABLE .CM TO FOLLOW
--- NOTE | 2020-12-25 14:30 | NUR ---
PT HAD A BM AND WAS CHANGED. BM WAS SOFT, BROWN, AND MODERATE IN AMOUNT. WOUNDS WERE ASSESSED, CLEANED, AND NEW DRESSING WAS PLACED. PT TOLERATED THIS WELL. PICTURES WERE TAKEN AND PLACED IN THE CHART.
--- NOTE | 2020-12-25 15:28 | NUR ---
SPOKE TO ROOMMATE, TAI, WITH VERBAL CONSENT OF PT. UPDATED HER ON THE CONDITION OF THE PT AND PLAN OF CARE. ALL QUESTIONS ANSWERED.
--- NOTE | 2020-12-25 15:36 | NUR ---
PATIENT HAS BEEN SCREENED AND CATEGORIZED MODERATE NUTRITION RISK. PATIENT WILL BE SEEN WITHIN 3-5 DAYS OF ADMISSION. 12/27/20 12/29/[address]
[2020-12-25 16:00] VITALS: BP 100/63
--- NOTE | 2020-12-25 16:00 | NUR ---
CAME BACK FROM BREAK AND RT TOOK PT OFF BIPAP. PT IS NOW ON 3L O2 NC. BREATHING IS UNLABORED. O2 SAT IS 100%. PT IS STABLE.
--- NOTE | 2020-12-25 16:00 | NUR ---
PT TAKEN OFF OF BIPAP AND PLACED ON 3L NC. PT NOT IN ANY DISTRESS AT THIS TIME. WILL CONTINUE TO MONITOR.
--- NOTE | 2020-12-25 16:40 | NUR ---
PT WAS TAKEN TO CT ANGIO WITH RESPIRATORY THERAPIST, NURSE, AND ACCOUNTING DIRECTOR. PT IS ASLEEP AT THIS TIME AND STABLE.
--- NOTE | 2020-12-25 16:55 | NUR ---
PT IS BACK FROM CT SCAN ANGIO WITH CONTRAST. PT IS IN BED, STABLE AT THIS TIME. NO DISTRESS NOTED.
[2020-12-25] MEDS: FUROSEMIDE 40 MG/4 ML VIAL IVP SCH (17:00)
--- NOTE | 2020-12-25 17:00 | NUR ---
LASIX IVP WAS NOT GIVEN DUE TO DECREASED BP. BP IS 100/63 AND HR IS 103. WILL CONTINUE TO MONITOR BP.
[2020-12-25] MEDS: NACL 0.9% 1,000 ML IV SCH (17:05)
[2020-12-25] MEDS: ATORVASTATIN 20 MG TAB PO SCH (17:41)
--- NOTE | 2020-12-25 19:15 | NUR ---
ENDORSED PT TO PHYSICS TECHNICAL OFFICER NURSE FOR CONTINUITY OF CARE. PT IS STABLE AT THIS TIME. PLAN OF CARE DISCUSSED.
--- NOTE | 2020-12-25 19:30 | NUR ---
RECEIVED CARE AND REPORT FROM DAYSHIFT RN. PATIENT ALERT AND ORIENTED X4 TO PERSON, PLACE TIME AND EVENT. PATIENT ON 3 LPM NC 97% OXYGEN SATURATION, HOB 3O DEGREES, DENIES PAIN WHEN ASKED. NO OBVIOUS SIGNS OF DISTRESS OBSERVED WHILE AT THE BEDSIDE, IN A POSITION OF COMFORT. PATIENT CONNECTED TO TELE HOUSEKEEPING STAFF, NSR/ST. PATIENT ABLE TO USE BEDSIDE URINAL/BEDPAN WITH RN ASSISTANCE, NON-AMBULATORY. PATIENT IV SITES INCLUDE RIGHT AC 20G, SITES INTACT, DRESSINGS DRY AND FLUSHING WELL. IV DRIPS RUNNING UPON ARRIVAL TO THE BEDSIDE INCLUDE NS 0.9% AT 20 ML/HR. PATIENT SKIN IS NON-INTACT, BILATERAL LEGS CELLULITIS, DRESSINGS IN PLACE, INTACT. PATIENT BED LOCKED AND LOWERED INTO A POSITION OF SAFETY. OFF LOADED WITH USE OF PILLOWS AND FREQUENT REPOSITIONING Q2 HOURS. SAFETY MEASURES IN PLACE, NURSE CALL LIGHT REMOTE IN PATIENT HAND, EDUCATED ON HOW TO USE AND ORIENTED TO ROOM ENVIRONMENT. PROMOTING A RESTFUL HEALING ENVIRONMENT WITH DECREASED STIMULI IN THE ROOM. WILL CONTINUE TO CLOSELY MONITOR, REASSESS OFTEN AND FREQUENTLY ROUND.
[2020-12-25 20:00] VITALS: BP 119/68
--- NOTE | 2020-12-25 20:05 | NUR ---
BiPAP AT BEDSIDE. PT ON 3L NASAL CANNULA WITH SPO2 OF 97%. PT TOLERATING WELL. NO RESPIRATORY DISTRESS NOTED AT THIS TIME. WILL CONTINUE TO MONITOR PT.
--- NOTE | 2020-12-25 21:05 | NUR ---
SCHEDULED MEDICATIONS GIVEN ORDERED BY MD, NO SIGNS OF DISTRESS OBSERVED. WILL CONTINUE TO CLOSELY MONITOR AND FREQUENTLY ROUND.
[2020-12-25] MEDS: LEVOFLOXACIN 750 MG/D5W PREMIX 150 ML IV SCH (22:50)
--- NOTE | 2020-12-25 23:08 | NUR ---
PATIENT SLEEPING, HOB 30 DEGREES, RESTING IN A POSITION OF COMFORT. PATIENT ON NC 3 LPM, OXYGEN SATURATION 99%, RR 21, NO SIGNS OF DISTRESS OBSERVED WHILE AT THE BEDSIDE. SYMMETRICAL CHEST RISE AND FALL OBSERVED. SAFETY MEASURES IN PLACE. WILL CONTINUE TO CLOSELY MONITOR AND FREQUENTLY ROUND.
[2020-12-26] VITALS: BP 98/66
--- NOTE | 2020-12-26 00:11 | NUR ---
SCHEDULED MEDICATIONS GIVEN ORDERED BY MD, NO SIGNS OF DISTRESS OBSERVED WHILE AT THE BEDSIDE. SAFETY MEASURES REMAIN IN PLACE. WILL CONTINUE TO CLOSELY MONITOR AND FREQUENTLY ROUND.
--- NOTE | 2020-12-26 02:35 | NUR ---
PATIENT RESTING, ASLEEP, IN A POSITION OF COMFORT. ON NC 3 LPM, OXYGEN SATURATION 99%, RR 20, NO SIGNS OF DISTRESS OBSERVED WHILE AT THE BEDSIDE. SYMMETRICAL CHEST RISE AND FALL OBSERVED. SAFETY MEASURES IN PLACE. WILL CONTINUE TO CLOSELY MONITOR AND FREQUENTLY ROUND.
[2020-12-26 04:00] VITALS: BP 111/75
--- NOTE | 2020-12-26 04:27 | NUR ---
MORNING CARE PROVIDED, PATIENT RESTING IN A POSITION OF COMFORT. NO OBVIOUS SIGNS OF DISTRESS OBSERVED WHILE AT THE BEDSIDE. SYMMETRICAL CHEST RISE AND FALL, RR 20, NC 3 LPM OXYGEN SATURATION 98%, HOB 30 DEGREES, AIRWAY OPEN, CLEAR AND MAINTAINABLE, VS STABLE. SAFETY MEASURES IN PLACE. WILL CONTINUE TO CLOSELY MONITOR AND FREQUENTLY ROUND.
[2020-12-26 06:54] LABS: BASOPHILS # (AUTO) 0.1 K/uL (0.00-0.22); BASOPHILS % (AUTO) 0.5 % (0.0-2.0); EOSINOPHILS % (AUTO) 0.4 % (0.0-4.0); HEMATOCRIT 40.1 % (36-52); HEMOGLOBIN 12.8 g/dL (12.0-18.0); LYMPHOCYTES # (AUTO) 0.8 K/uL (2.0-11.5); LYMPHOCYTES % (AUTO) 6.8 % (20.5-51.1); MEAN CORPUSCULAR HEMOGLOBIN 27 pg (27-31); MEAN CORPUSCULAR HGB CONC 32 g/dL (33-37); MEAN CORPUSCULAR VOLUME 85.6 fL (80-94); MONOCYTES # (AUTO) 0.8 K/uL (0.8-1.0); MONOCYTES % (AUTO) 6.8 % (1.7-9.3); NEUTROPHILS # (AUTO) 9.6 K/uL (1.8-7.7); NEUTROPHILS % (AUTO) 85.5 % (42.2-75.2); PLATELET COUNT (AUTO) 139 K/uL (140-450); RED BLOOD CELL COUNT(AUTO) 4.68 MIL/uL (4.20-6.10); RED CELL DISTRIBUTION WIDTH 16.1 % (11.6-13.7); WHITE BLOOD COUNT (AUTO) 11.2 K/uL (4.8-10.8)
[2020-12-26 07:03] LABS: ANION GAP 8.7 (8-16); CARBON DIOXIDE 29.5 mmol/L (21-32); POTASSIUM 4.2 mmol/L (3.5-5.1)
--- NOTE | 2020-12-26 07:20 | NUR ---
RECEIVED REPORT FROM NIGHT NURSE AT BEDSIDE FOR CONTINUITY OF CARE. REVIEWED AND WILL CONTINUE WITH POC. PT ASLEEP DURING REPORT, NURSE REPORTS PT IS AA&OX4. PT IS ON 3L NC BREATHING NORMAL AND UNLABORED. NURSE REPORTS PT HAS BEEN SR THROUGHOUT THE NIGHT. PT UTILIZES URINAL WITH PERIODS OF INCONTINENCE. LAST BM WAS LAST NIGHT. PT HAS BILATERAL LOWER LEG CELLULITIS WITH OPEN WOUNDS. WOUNDS ARE WRAPPED WITH ABDOMINAL PADS AND KERLIX, DRESSING IS DRY AND INTACT. PT HAS PATENT IV IN RAC 20G RUNNING FLUIDS AT 20 ML/HR. NURSE REPORTS PT IS RESTRICTED TO 1.5L OF WATER/DAY. PT CONDITION IS STABLE.
--- NOTE | 2020-12-26 07:29 | NUR ---
REPORT AND CARE ENDORSED TO DAYSHIFT RN, VS STABLE.
[2020-12-26 08:00] VITALS: BP 100/65
[2020-12-26] MEDS: LACTOBACILLUS RHAMNOSUS GG 1 EACH CAP PO SCH (08:29)
[2020-12-26] MEDS: PANTOPRAZOLE 40 MG INJ VIAL IVP SCH (08:30)
[2020-12-26] MEDS: ASPIRIN 81 MG TAB.CHEW PO SCH (08:30)
--- NOTE | 2020-12-26 08:47 | NUR ---
NOTIFIED MD OF LOW BP OF 100/65. ALSO NOTIFIED MD THAT I HELD THE MEDICATIONS METOPROLOL, LISINOPRIL, AMLODIPINE, AND LASIX. MD AWARE. Addendum: 12/26/20 at 09 by Abigail Wise RN RN SPOKE TO DR. SAN AT BEDSIDE. DR. SAN ORDERED FOR LASIX TO BE GIVEN NOT HELD. WILL CHECK BP AND ADMINISTER SHORTLY.
[2020-12-26] MEDS: METOPROLOL 25 MG TAB PO SCH ×2 (09:00→20:33)
[2020-12-26] MEDS: lisinopriL 20 MG TAB PO SCH (09:00)
[2020-12-26] MEDS: amLODIPine 5 MG TAB PO SCH (09:00)
[2020-12-26] MEDS: FUROSEMIDE 40 MG/4 ML VIAL IVP SCH ×2 (09:33→16:17)
--- NOTE | 2020-12-26 09:33 | NUR ---
RECHECKED BP AND IT WAS 127/62. PT WAS GIVEN LASIX ORDERED.
--- NOTE | 2020-12-26 11:29 | NUR ---
PERFORMED FREQ CHECKS. PT IS SLEEPING. CONDITION IS STABLE. PT ON 3L NC WITH NORMAL UNLABORED BREATHING. PATENT IV IN L-HAND 24G RUNNING IVF PER MD ORDER. WILL CONTINUE WITH FREQ ROUNDING.
--- NOTE | 2020-12-26 11:30 | NUR ---
REASON FOR EVALUATION: BILATERAL LOWER EXTREMITIES CELLULITIS WOUND ASSESSMENT COMPLETED ON THIS 50 Y/O MALE ADMITTED TO [facility] UNIT FOR CHF EXACERBATION, ELEVATED TROPONIN, AND CELLULITIS. PATIENT IS FROM HOME. PAST MEDICAL HISTORY INCLUDES HTN, CHF, NICOTINE DEPENDENCE, METH USE, DM II, HEPATITIS C, HLD, PAD, ASTHMA. ALL ABOVE INFORMATION WAS OBTAINED FROM THE ADMISSION H&P. LABS ARE WBC 11.2, H/H 4.68/12.8, GLUCOSE 84, ALBUMIN 3.0. PATIENT IS AAOX3, CALM, COOPERATIVE. SKIN IS WARM TO TOUCH, COLOR APPROPRIATE TO ETHNICITY. HAS GENERALIZED BLE WEAKNESS AND PAIN UPON MOVEMENT/LIFTING, BLE LOWER EXTREMITIES PITTING EDEMA. ORAL MUCOSAL MEMBRANES MOIST. REQUIRES ASSISTANCE WITH TURNING. PLAN OF WOUND CARE AND PRESSURE PREVENTATIVE MEASURES DISCUSSED WITH PATIENT AND PRIMARY RN. PATIENT/RN VERBALIZED UNDERSTANDING. PATIENT ADMITTED WITH BLE OPEN CELLULITIS. COMORBIDITIES RELATED TO FURTHER SKIN BREAKDOWN, SUCH DECREASED FUNCTIONAL ABILITY, LOW ALBUMIN LEVEL. CURRENTLY ON LEVOFLOXACIN IV AND VANCOMYCIN IV ANTIBIOTICS. INTEGUMENTARY: - LEFT LOWER EXTREMITY CELLULITIS WITH MULTIPLE SMALL OPEN WOUNDS. LARGEST WOUND MEASURES 3 X 2 WITH SUPERFICIAL DEPTH. WOUND BED NON-BLANCHABLE, MILD SEROSANGUINOUS ODOR. BETO-WOUND RED, EDEMATOUS. - RIGHT LOWER EXTREMITY CELLULITIS WITH MULTIPLE SMALL OPEN WOUNDS. LARGEST WOUND MEASURES 5.5 X 7 WITH SUPERFICIAL DEPTH. WOUND BED NON-BLANCHABLE, MODERATE SEROSANGUINOUS ODOR. BETO-WOUND RED, EDEMATOUS. RECOMMENDATIONS: - NO TAPE ON SKIN. - LEFT LOWER EXTREMITY CELLULITIS - CLEANSE WITH NS, PAT DRY, APPLY ABD PADS, SECURE WITH KERLIX WRAP DAILY AND PRN IF SOILED. - RIGHT LOWER EXTREMITY CELLULITIS - CLEANSE WITH NS, PAT DRY, APPLY ABD PADS, SECURE WITH KERLIX WRAP DAILY AND PRN IF SOILED. - ASSIST PATIENT WITH TURNING AND REPOSITIONING. - ASSESS AND MONITOR WOUND QSHIFT.
[2020-12-26 12:00] VITALS: BP 109/68
[2020-12-26] MEDS: VANCOMYCIN HCL 1.25 GM in DEXTROSE 5% 250 ML IV SCH ×2 (12:21→23:48)
--- NOTE | 2020-12-26 12:22 | NUR ---
VANCOMYCIN WAS GIVEN LATE DUE TO PT PULLING OUT IV WHILE SLEEPING. NEW IV WAS PLACED ON THE LEFT HAND 24 GAUGE. IV IS PATENT AND FLUSHING WELL. IV ABX WAS STARTED AND PT IS CURRENTLY EATING LUNCH. NO DISTRESS NOTED.
--- NOTE | 2020-12-26 13:15 | NUR ---
PT CONDITION IS STABLE. PT IS WATCHING TELEVISION AND DENIES PAIN OR DISCOMFORT AT THE MOMENT. WOUND CARE NURSE PERFORMED DRESSING CHANGES FOR BILATERAL LOWER LEGS AFFECTED BY CELLULITIS. DRESSING IS CLEAN, DRY, AND INTACT. WILL CONTINUE TO MONITOR.
--- NOTE | 2020-12-26 14:35 | NUR ---
WEANED PT OFF OF O2. PT WAS PREVIOUSLY ON 2 L O2 NC. PT NOW ON RA. MONITORED FOR 10 MIN AND HE HAS BEEN SATURATING IN HIGH 90'S. O2 IS NOW AT 97%.
--- NOTE | 2020-12-26 15:15 | NUR ---
PT CONDITION IS STABLE. PT ON RA AND STILL SATURATING WELL. PT IS AT 96% O2 SATURATION. DENIES PAIN OR DISTRESS. PT IS AA&OX4 AND IS AMBULATORY. PT HAS IVF RUNNING PER MD ORDER. PT ASKED FOR JESSIE ALVARADO AND GAVE HIM SOME TO HAVE AT BEDSIDE. WILL CONTINUE TO MONITOR.
[2020-12-26 16:00] VITALS: BP 109/73
[2020-12-26] MEDS: ATORVASTATIN 20 MG TAB PO SCH (16:17)
[2020-12-26] MEDS: NACL 0.9% 1,000 ML IV SCH (17:04)
--- NOTE | 2020-12-26 17:27 | NUR ---
PT IS CURRENTLY SLEEPING. PT DOES NOT APPEAR TO BE IN PAIN OR DISTRESS. WILL CONTINUE WITH FREQ MONITORING.
--- NOTE | 2020-12-26 18:40 | NUR ---
HAD TO D/C PATIENT IV IN RIGHT HAND. IV INFILTRATED AND ARM WAS SWOLLEN. STOPPED IV AND ATTEMPTED TO FLUSH BUT DID NOT FLUSH AND WAS PAINFUL. WILL ATTEMPT TO PLACE ANOTHER IV.
--- NOTE | 2020-12-26 18:57 | NUR ---
PLACED 24G IV IN LAC. FLUSHED AND PATENT. 3 PREVIOUS ATTEMPTS BEFORE SUCCESSFUL ATTEMPT.
--- NOTE | 2020-12-26 19:22 | NUR ---
GAVE CHANGE OF SHIFT REPORT TO NIGHT NURSE. DISCUSSED POC. PT CONDITION IS STABLE.
--- NOTE | 2020-12-26 19:30 | NUR ---
RECEIVED CARE AND REPORT FROM DAYSHIFT RN. PATIENT ALERT AND ORIENTED X4 TO PERSON, PLACE TIME AND EVENT. PATIENT ON ROOM AIR, OXYGEN SATURATION 95%, HOB 3O DEGREES, DENIES PAIN WHEN ASKED. NO OBVIOUS SIGNS OF DISTRESS OBSERVED WHILE AT THE BEDSIDE, IN A POSITION OF COMFORT. PATIENT CONNECTED TO TELE APPLICATION SPECIALIST, NSR/ST. PATIENT ABLE TO USE BEDSIDE URINAL/BEDPAN WITH RN ASSISTANCE, NON-AMBULATORY. PATIENT IV SITES INCLUDE RIGHT AC 20G, SITES INTACT, DRESSINGS DRY AND FLUSHING WELL. IV DRIPS RUNNING UPON ARRIVAL TO THE BEDSIDE INCLUDE NS 0.9% AT 20 ML/HR. PATIENT SKIN IS NON-INTACT, BILATERAL LEGS CELLULITIS, DRESSINGS IN PLACE, INTACT. PATIENT BED LOCKED AND LOWERED INTO A POSITION OF SAFETY. OFF LOADED WITH USE OF PILLOWS AND FREQUENT REPOSITIONING Q2 HOURS. SAFETY MEASURES IN PLACE, NURSE CALL LIGHT REMOTE IN PATIENT HAND, EDUCATED ON HOW TO USE AND ORIENTED TO ROOM ENVIRONMENT. PROMOTING A RESTFUL HEALING ENVIRONMENT WITH DECREASED STIMULI IN THE ROOM. WILL CONTINUE TO CLOSELY MONITOR, REASSESS OFTEN AND FREQUENTLY ROUND.
[2020-12-26 20:00] VITALS: BP 106/65
--- NOTE | 2020-12-26 20:35 | NUR ---
SCHEDULED MEDICATIONS GIVEN ORDERED BY MD, NO SIGNS OF DISTRESS OBSERVED WHILE AT THE BEDSIDE. WILL CONTINUE TO CLOSELY MONITOR AND FREQUENTLY ROUND.
--- NOTE | 2020-12-26 22:16 | NUR ---
PATIENT SLEEPING IN A POSITION OF COMFORT, SYMMETRICAL CHEST RISE AND FALL OBSERVED AT THE BEDSIDE, NO SIGNS OF DISTRESS, VS STABLE, ROOM AIR OXYGEN SATURATION 97%. WILL CONTINUE TO CLOSELY MONITOR AND FREQUENTLY ROUND.
[2020-12-26] MEDS: LEVOFLOXACIN 750 MG/D5W PREMIX 150 ML IV SCH (22:43)
--- NOTE | 2020-12-26 23:55 | NUR ---
SCHEDULED MEDICATIONS GIVEN ORDERED BY MD, WILL CONTINUE TO CLOSELY MONITOR AND FREQUENTLY ROUND.
[2020-12-27] VITALS: BP 115/79
--- NOTE | 2020-12-27 01:15 | NUR ---
PATIENT ASLEEP RESTING IN A POSITION OF COMFORT, NO SIGNS OF DISTRESS OBSERVED WHILE AT THE BEDSIDE. SYMMETRICAL CHEST RISE AND FALL OBSERVED. VS STABLE. WILL CONTINUE TO CLOSELY MONITOR AND FREQUENTLY ROUND.
--- NOTE | 2020-12-27 03:17 | NUR ---
PATIENT ALERT AND AWAKE WATCHING THE TV, STATED HE FEELS FINE AND COMFORTABLE WHEN ASKED. VS STABLE, NO DISTRESS OBSERVED WHILE AT THE BEDSIDE.
[2020-12-27 04:00] VITALS: BP 119/76
--- NOTE | 2020-12-27 04:24 | NUR ---
MORNING CARE, COMFORT MEASURES, HYGIENE, SAFETY CHECKS AND REPOSITIONING PROVIDED. VS STABLE, NO SIGNS OF DISTRESS OBSERVED, SYMMETRICAL CHEST RISE AND FALL PRESENT. RR 19, OXYGEN SATURATION 96%, NO SOB, NO DIFFICULTY BREATHING PRESENT. WILL CONTINUE TO CLOSELY MONITOR AND FREQUENTLY ROUND.
[2020-12-27 07:24] LABS: BASOPHILS # (AUTO) 0.1 K/uL (0.00-0.22); BASOPHILS % (AUTO) 0.7 % (0.0-2.0); EOSINOPHILS # (AUTO) 0.1 K/uL (0-0.4); EOSINOPHILS % (AUTO) 1.1 % (0.0-4.0); HEMOGLOBIN 13.1 g/dL (12.0-18.0); LYMPHOCYTES # (AUTO) 0.9 K/uL (2.0-11.5); LYMPHOCYTES % (AUTO) 7.9 % (20.5-51.1); MEAN CORPUSCULAR HEMOGLOBIN 27 pg (27-31); MEAN CORPUSCULAR HGB CONC 32 g/dL (33-37); MONOCYTES # (AUTO) 1.1 K/uL (0.8-1.0); MONOCYTES % (AUTO) 9.5 % (1.7-9.3); NEUTROPHILS # (AUTO) 9.5 K/uL (1.8-7.7); NEUTROPHILS % (AUTO) 80.8 % (42.2-75.2); PLATELET COUNT (AUTO) 152 K/uL (140-450); RED BLOOD CELL COUNT(AUTO) 4.82 MIL/uL (4.20-6.10); RED CELL DISTRIBUTION WIDTH 16.2 % (11.6-13.7); WHITE BLOOD COUNT (AUTO) 11.7 K/uL (4.8-10.8)
[2020-12-27 07:27] LABS: CARBON DIOXIDE 30.7 mmol/L (21-32); CREATININE 0.8 mg/dL (0.6-1.3); POTASSIUM 3.7 mmol/L (3.5-5.1)
--- NOTE | 2020-12-27 07:30 | NUR ---
REPORT AND CARE ENDORSED TO DAYSHIFT RN, VS STABLE.
--- NOTE | 2020-12-27 07:32 | NUR ---
RECEIVED REPORT FROM NIGHT NURSE AT BEDSIDE FOR CONTINUITY OF CARE. PT IS AOX4, ABLE TO MAKE NEEDS KNOWN. PT IS ON RA BREATHING NORMAL AND UNLABORED. PT UTILIZES URINAL WITH PERIODS OF INCONTINENCE. PT HAS BILATERAL LOWER LEG CELLULITIS WITH OPEN WOUNDS. WOUNDS ARE WRAPPED WITH ABDOMINAL PADS AND KERLIX, DRESSING IS DRY AND INTACT. PT HAS PATENT IV IN LAC 24G RUNNING FLUIDS AT 20 ML/HR. NURSE REPORTS PT IS RESTRICTED TO 1.5L OF WATER/DAY. PLAN OF CARE DISCUSSED. SAFETY PRECAUTIONS IN PLACE. CALL LIGHT WITHIN REACH. WILL CONTINUE TO MONITOR.
[2020-12-27 08:00] VITALS: BP 123/86
[2020-12-27] MEDS ORDERED: FURO-570 PO (08:42)
[2020-12-27] MEDS ORDERED: AMLO-3 PO (08:42)
[2020-12-27] MEDS ORDERED: ALBU0.0912 INH (08:42)
[2020-12-27] MEDS ORDERED: ATOR20TA40 PO (08:42)
[2020-12-27] MEDS ORDERED: PANT40EC56 PO (08:42)
[2020-12-27] MEDS ORDERED: LISI20TA29 PO (08:42)
[2020-12-27] MEDS ORDERED: METO25TA PO (08:42)
[2020-12-27] MEDS ORDERED: ASPI81CT95 PO (08:42)
[2020-12-27] MEDS ORDERED: CLIN300C2 PO (08:46)
[2020-12-27] MEDS ORDERED: LEVO750T51 PO (08:46)
[2020-12-27] MEDS: PANTOPRAZOLE 40 MG INJ VIAL IVP SCH (09:13)
[2020-12-27] MEDS: FUROSEMIDE 40 MG/4 ML VIAL IVP SCH ×2 (09:14→17:27)
[2020-12-27] MEDS: ASPIRIN 81 MG TAB.CHEW PO SCH (09:14)
[2020-12-27] MEDS: amLODIPine 5 MG TAB PO SCH (09:14)
[2020-12-27] MEDS: METOPROLOL 25 MG TAB PO SCH ×2 (09:15→20:49)
[2020-12-27] MEDS: lisinopriL 20 MG TAB PO SCH (09:15)
[2020-12-27] MEDS: LACTOBACILLUS RHAMNOSUS GG 1 EACH CAP PO SCH (09:16)
--- NOTE | 2020-12-27 09:45 | NUR ---
ALL SCHEDULED MEDS GIVEN. PT IS STABLE. NO DISTRESS NOTED. WILL CONTINUE TO MONITOR.
[2020-12-27] MEDS: VANCOMYCIN HCL 1.25 GM in DEXTROSE 5% 250 ML IV SCH (11:09)
[2020-12-27 12:00] VITALS: BP 118/78
--- NOTE | 2020-12-27 12:25 | NUR ---
IV WAS ACCIDENTALLY DISLODGED WILL REPLACE WITH A NEW IV.
--- NOTE | 2020-12-27 12:30 | NUR ---
REINSERTED NEW 22G R WRIST. INTACT AND PATENT.
--- NOTE | 2020-12-27 13:00 | NUR ---
PT AT PATIENT'S BEDSIDE ASSESSING PATIENT.
--- NOTE | 2020-12-27 13:28 | NUR ---
BETHANY ESPARZA CALLED [facility] AT SPOKE TO BRYAN TO MAKE A FOLLOW UP APPOINTMENT FOR PATIENT ON 01/02/21 AT 15:30 WITH MD. NELSON. Addendum: 12/27/20 at 1419 by Omayra Maza CM BETHANY ESPARZA MET WITH PATIENT AT BEDSIDE TO INFORM HIM THAT A FOLLOW UP APPOINTMENT HAS BEEN MADE FOR HIM BY THESE [employer] [employer] [facility] OPERATOR ON Thursday01/02/21 AT 13:[address] NELSON AT [facility]. [facility] HANDED AN APPOINTMENT NOTE TO PATIENT WITH ALL INFORMATION FOR HIS APPOINTMENT. PATIENT AGREE AND WAS THANKFUL FOR THE INFORMATION. Addendum: 12/27/20 at 1510 by Omayra Maza PATIENT IS A 50 YEAR OLD MALE ADMITTED AT [facility] ON 12/24/20 DUE TO DX OF CHF EXACERBATION, ELEVATED TROPS, CELLULITIS. SW MET WITH PATIENT AT BEDSIDE TO DISCUSS AND GATHER HIS COLLATERAL INFORMATION. PATIENT REPORTED LIVING HOME ALONE WITH NOT MUCH SUPPORT OR FAMILY INVOLVEMENT. HE STATED THAT DID NOT HAVE ANY ADVANCE DIRECTIVES AND DECLINED ADVANCE DIRECTIVES INFORMATION PACKET PROVIDED BY [facility]. PATIENT STATED THAT HIS FRIEND FREDERIC IS HIS EMERGENCY CONTACT AND PROVIDED HER CONTACT NUMBER . PER PATIENT HE HAS NO DOCTOR ASSIGNED AND ASKED IF SW CAN FIND A DRYolette AT [facility] AND MAKE HIS FOLLOW UP APPOINTMENT AFTER DC. PATIENT REPORTED THAT HE HAS NO ISSUES TAKING OR GETTING HIS MEDICATIONS WHEN PRESCRIBED BY MD. PATIENT GETS HIS MEDICATIONS USUALLY FROM [facility] IN [place] [address]. PATIENT STATED THAT HE HAS ONLY A WALKER AT HOME HIS DME AND REPORTED THAT HIS FRIEND MAURICE WILL ASSIST HIM WITH TRANSPORTATION BACK TO HIS HOME AFTER DC. PATIENT ALSO MENTION THAT IF HIS FRIEND IS NOT ABLE TO PICK HIM UP HE MAY NEED A TAXI VOUCHER, SW THANK HIM FOR INFORMATION AND WILL FOLLOW UP WITH PATIENT NEEDED.
--- NOTE | 2020-12-27 15:09 | NUR ---
PATIENT IS A 50 YEAR OLD MALE ADMITTED AT [facility] ON 12/24/20 DUE TO DX OF CHF EXACERBATION, ELEVATED TROPS, CELLULITIS. SW MET WITH PATIENT AT BEDSIDE TO DISCUSS AND GATHER HIS COLLATERAL INFORMATION. PATIENT REPORTED LIVING HOME ALONE WITH NOT MUCH SUPPORT OR FAMILY INVOLVEMENT. HE STATED THAT DID NOT HAVE ANY ADVANCE DIRECTIVES AND DECLINED ADVANCE DIRECTIVES INFORMATION PACKET PROVIDED BY [facility]. PATIENT STATED THAT HIS FRIEND FREDERIC IS HIS EMERGENCY CONTACT AND PROVIDED HER CONTACT NUMBER . PER PATIENT HE HAS NO DOCTOR ASSIGNED AND ASKED IF SW CAN FIND A DRYolette AT [facility] AND MAKE HIS FOLLOW UP APPOINTMENT AFTER DC. PATIENT REPORTED THAT HE HAS NO ISSES TAKING OR GETTING HIS MEDICATIONS WHEN PRESCRIBED BY MD. PATIENT GETS HIS MEDICATIONS USUALLY FROM [facility] IN [place] [address] [place] & [facility]. PATIENT STATED THAT HE HAS ONLY A WALKER AT HOME HIS DME AND REPORTED THAT HIS FRIEND MAURICE WILL ASSIST HIM WITH TRANSPORTATION BACK TO HIS HOME AFTER DC. PATIENT ALSO MENTION THAT IF HIS FRIEND IS NOT ABLE TO PICK HIM UP HE MAY NEED A [facility] VOUCHER, SW THANK HIM FOR INFORMATION AND WILL FOLLOW UP WITH PATIENT NEEDED.
--- NOTE | 2020-12-27 15:30 | NUR ---
CHECKED ON PATIENT. PATIENT IS STABLE. NO DISTRESS NOTED. WILL CONTINUE TO MONITOR.
[2020-12-27 16:00] VITALS: BP 120/76
[2020-12-27] MEDS: ATORVASTATIN 20 MG TAB PO SCH (17:27)
--- NOTE | 2020-12-27 17:50 | NUR ---
ALL SCHEDULED MEDS GIVEN. PT IS STABLE. NO DISTRESS NOTED. WILL CONTINUE TO MONITOR.
[2020-12-27] MEDS: NACL 0.9% 1,000 ML IV SCH (18:23)
--- NOTE | 2020-12-27 19:30 | NUR ---
ENDORSED TO MARKET RESEARCH ANALYST NURSE FOR CONTINUITY OF CARE. PT IS STABLE.
--- NOTE | 2020-12-27 19:31 | NUR ---
RECEIVED BEDSIDE REPORT FROM DAY RN. PT IS AOX4 RESTING COMFORTABLY IN BED. ABLE TO MAKE NEEDS KNOWN. PT IS ON RA BREATHING NORMAL AND UNLABORED. PT IS BEDREST D/T BILATERAL LOWER LEG CELLULITIS WITH OPEN WOUNDS. WOUNDS ARE WRAPPED WITH ABDOMINAL PADS AND KERLIX, DRESSING IS DRY AND INTACT. PT HAS PATENT IV IN RW22G IVF INFUSING NS 20 ML/HR. PT IS ON STRICT I&O WITH FLUID RESTRICTION OF 1.5L/DAY. PT USES URINAL. PLAN OF CARE DISCUSSED. SAFETY PRECAUTIONS IN PLACE. CALL LIGHT WITHIN REACH. WILL CONTINUE TO MONITOR.
--- NOTE | 2020-12-27 19:40 | NUR ---
RECEIVED BEDSIDE ENDORSEMENT FROM AM SHIFT RN, A&O X4, SKIN INTACT, RIGHT WRIST 22G, NS @ 20, BILATERAL DRESSINGS DUE TO CELLULITIS, DENIES PAIN, NO SIGNS OF DISTRESS, TROPONIN @ 0.142, WILL CONTINUE TO MONITOR, SAFETY MEASURES IN PLACE, CALL LIGHT WITHIN REACH, WILL NOTIFY MD NEEDED.
[2020-12-27 20:00] VITALS: BP 117/80
--- NOTE | 2020-12-27 20:56 | NUR ---
PT RECEIVED SCHEDULED MEDS, TOLERATED WELL, PROVIDED MEDICATION EDUCATION, WAS ABLE TO VERBALIZE UNDERSTANDING, NO SIGNS OF DISTRESS, KEPT COMFORTABLE.
[2020-12-27] MEDS: LEVOFLOXACIN 750 MG/D5W PREMIX 150 ML IV SCH (21:56)
[2020-12-28] VITALS: BP 117/75
--- NOTE | 2020-12-28 | NUR ---
PT ASLEEP, KEPT COMFORTABLE, NO SIGNS OF DISTRESS, SAFETY MEASURES IN PLACE, CALL LIGHT WITHIN REACH, VITAL SIGNS STABLE BP 117/75, RR 20, HR 90, TEMP 96.5, 02 SAT 97%, WILL CONTINUE TO OBSERVE, NOTIFY MD NEEDED.
--- NOTE | 2020-12-28 02:18 | NUR ---
ROUNDS MADE. PT OBSERVED RESTING IN BED APPEARS TO BE ASLEEP. CHEST RISE AND FALL NOTED. CALL LIGHT WITHIN REACH. WILL CONTINUE TO MONITOR.
[2020-12-28 04:00] VITALS: BP 112/79
--- NOTE | 2020-12-28 04:00 | NUR ---
VITAL SIGNS ARE WITHIN NORMAL LIMITS. ALL SAFETY MEASURES ARE IN PLACE. WILL CONTINUE TO MONITOR.
--- NOTE | 2020-12-28 07:31 | NUR ---
GAVE SHIFT REPORT TO AM SHIFT RN, PT ENDORSED IN STABLE CONDITION.
--- NOTE | 2020-12-28 07:35 | NUR ---
RECEIVED REPORT FROM NIGHT NURSE AT BEDSIDE FOR CONTINUITY OF CARE. PT IS AOX4, ABLE TO MAKE NEEDS KNOWN. PT IS ON RA BREATHING NORMAL AND UNLABORED. PT UTILIZES URINAL WITH PERIODS OF INCONTINENCE. PT HAS BILATERAL LOWER LEG CELLULITIS WITH OPEN WOUNDS. WOUNDS ARE WRAPPED WITH ABDOMINAL PADS AND KERLIX, DRESSING IS DRY AND INTACT. PT HAS PATENT IV IN R WRIST 22 G RUNNING FLUIDS AT 20 ML/HR. PLAN OF CARE DISCUSSED. SAFETY PRECAUTIONS IN PLACE. CALL LIGHT WITHIN REACH. WILL CONTINUE TO MONITOR.
[2020-12-28 08:00] VITALS: BP 127/75
[2020-12-28] MEDS: LACTOBACILLUS RHAMNOSUS GG 1 EACH CAP PO SCH (09:25)
[2020-12-28] MEDS: FUROSEMIDE 40 MG/4 ML VIAL IVP SCH ×2 (09:25→17:00)
[2020-12-28] MEDS: ASPIRIN 81 MG TAB.CHEW PO SCH (09:25)
[2020-12-28] MEDS: lisinopriL 20 MG TAB PO SCH (09:26)
[2020-12-28] MEDS: METOPROLOL 25 MG TAB PO SCH (09:26)
[2020-12-28] MEDS: amLODIPine 5 MG TAB PO SCH (09:26)
[2020-12-28] MEDS: PANTOPRAZOLE 40 MG INJ VIAL IVP SCH (09:29)
--- NOTE | 2020-12-28 09:50 | NUR ---
ALL SCHEDULE MEDS GIVEN. PT IS STABLE. NO DISTRESS NOTED. WILL CONTINUE TO MONITOR.
[2020-12-28 09:53] LABS: BASOPHILS # (AUTO) 0.1 K/uL (0.00-0.22); BASOPHILS % (AUTO) 0.6 % (0.0-2.0); EOSINOPHILS # (AUTO) 0.1 K/uL (0-0.4); HEMATOCRIT 42.6 % (36-52); HEMOGLOBIN 13.9 g/dL (12.0-18.0); LYMPHOCYTES # (AUTO) 0.8 K/uL (2.0-11.5); LYMPHOCYTES % (AUTO) 8.9 % (20.5-51.1); MEAN CORPUSCULAR HEMOGLOBIN 27 pg (27-31); MEAN CORPUSCULAR HGB CONC 33 g/dL (33-37); MEAN CORPUSCULAR VOLUME 83.7 fL (80-94); MONOCYTES # (AUTO) 0.7 K/uL (0.8-1.0); MONOCYTES % (AUTO) 7.8 % (1.7-9.3); NEUTROPHILS # (AUTO) 7.6 K/uL (1.8-7.7); NEUTROPHILS % (AUTO) 81.7 % (42.2-75.2); PLATELET COUNT (AUTO) 178 K/uL (140-450); RED BLOOD CELL COUNT(AUTO) 5.09 MIL/uL (4.20-6.10); RED CELL DISTRIBUTION WIDTH 16.1 % (11.6-13.7); WHITE BLOOD COUNT (AUTO) 9.2 K/uL (4.8-10.8)
[2020-12-28 10:04] LABS: ANION GAP 7.1 (8-16); CARBON DIOXIDE 32.6 mmol/L (21-32); CREATININE 0.8 mg/dL (0.6-1.3); POTASSIUM 3.7 mmol/L (3.5-5.1)
[2020-12-28] MEDS ORDERED: POTA8TER12 PO (10:16)
[2020-12-28] MEDS: VANCOMYCIN HCL 1.25 GM in DEXTROSE 5% 250 ML IV SCH ×3 (11:57)
[2020-12-28 12:00] VITALS: BP 115/83
--- NOTE | 2020-12-28 12:30 | NUR ---
ALL SCHEDULE MEDS GIVEN. PT IS STABLE. NO DISTRESS NOTED. WILL CONTINUE TO MONITOR.
--- NOTE | 2020-12-28 13:15 | NUR ---
PT AT BEDSIDE ASSESSING PATIENT'S MOBILITY.
[2020-12-28 15:02] VITALS: BP 115/83
[2020-12-28 16:00] VITALS: BP 121/72
--- NOTE | 2020-12-28 16:12 | NUR ---
12/28/20 RD INITIAL ASSESSMENT COMPLETED PLEASE REFER TO NUTRITION ASSESSMENT UNDER CARE ACTIVITY FOR ESTIMATED NUTRITIONAL NEEDS. 1. CONTINUE CARDIAC DIET TOLERATED 2. RD PROVIDED CARDIAC NUTRITION EDUCATION. PT ACCEPTED 3. RD TO FOLLOW-UP 3-5 DAYS, MODERATE RISK GERA BATEMAN RD
--- NOTE | 2020-12-28 16:30 | NUR ---
ENDORSED DISCHARGE INSTRUCTIONS TO PATIENT. PT VERBALIZED UNDERSTANDING AND SIGNED THE FORMS FOR DISCHARGE.
[2020-12-28] MEDS: ATORVASTATIN 20 MG TAB PO SCH (17:15)
--- NOTE | 2020-12-28 17:30 | NUR ---
ALL SCHEDULED MEDS GIVEN. PT IS STABLE. NO DISTRESS NOTED. WILL CONTINUE TO MONITOR.
[2020-12-28] MEDS: NACL 0.9% 1,000 ML IV SCH (17:40)
--- NOTE | 2020-12-28 19:30 | NUR ---
ENDORSED TO PASTORAL MINISTRIES PROFESSOR NURSE FOR CONTINUITY OF CARE. PT IS STABLE.
--- NOTE | 2020-12-28 19:30 | NUR ---
RECEIVED ENDORSEMENT AT BEDSIDE FROM RN DAYSHIFT NURSE FOR CONTINUITY OF CARE, PT IN STABLE CONDITION. PT LYING IN BED AOX4 ON ROOM AIR, NO C/O VOICED. AWAITING TO HEAR FROM FAMILY WHOM WILL BE PICKING UP PT FROM THE HOSPITAL.
--- NOTE | 2020-12-28 21:25 | NUR ---
CALL PLACE TO [facility], WILL BE HERE IN 30-45 MINUTES
--- NOTE | 2020-12-28 22:15 | NUR ---
PT SITTING UP IN BED AOX4 ON ROOM AIR IN STABLE CONDITION, DRESSED WITH BELONGINGS IN HAND. TEACHING AND DISCHARGE INSTRUCTIONS REINFORCED, PT VERBALIZED UNDERSTANDING. PT ESCORTED OUT VIA W/C GOING HOME VIA [facility], WHERE HE LIVES WITH FRIENDS.
== END 2020-12-28 22:15 | disposition home or self-care (01) | DRG 720 ==
LOC: MED 15:21 → MTU 17:46
PROVIDERS: ADMIT Hospitalist; ATTEND Hospitalist
PROC: 5A09357 Assistance with Respiratory Ventilation, Less than 24 Consecutive Hours, Continuous Positive Airway Pressure (ICD-10-PCS; principal; 2020-12-24)
DX: A41.9 Sepsis, unspecified organism (principal); J96.01 Acute respiratory failure with hypoxia; I21.A1 Myocardial infarction type 2; G93.41 Metabolic encephalopathy; I50.23 Acute on chronic systolic (congestive) heart failure; E44.0 Moderate protein-calorie malnutrition; J18.9 Pneumonia, unspecified organism; E87.1 Hypo-osmolality and hyponatremia; L03.116 Cellulitis of left lower limb; L03.115 Cellulitis of right lower limb; F15.10 Other stimulant abuse, uncomplicated; I11.0 Hypertensive heart disease with heart failure; E78.2 Mixed hyperlipidemia; E83.42 Hypomagnesemia; E80.6 Other disorders of bilirubin metabolism; E11.51 Type 2 diabetes mellitus with diabetic peripheral angiopathy without gangrene; Z20.822 Contact with and (suspected) exposure to COVID-19; R74.01 Elevation of levels of liver transaminase levels; I42.8 Other cardiomyopathies; J45.909 Unspecified asthma, uncomplicated; F17.210 Nicotine dependence, cigarettes, uncomplicated; Z86.19 Personal history of other infectious and parasitic diseases; Z68.30 Body mass index [BMI] 30.0-30.9, adult; Z79.82 Long term (current) use of aspirin; Z79.899 Other long term (current) drug therapy; Z80.0 Family history of malignant neoplasm of digestive organs; Z80.1 Family history of malignant neoplasm of trachea, bronchus and lung; Z82.49 Family history of ischemic heart disease and other diseases of the circulatory system; Z91.14 Patient's other noncompliance with medication regimen
CPT/HCPCS: 36415; 36600; 71045; 71275; 80048; 80053; 80202; 80305; 81001; 82803; 83605; 83735; 83880; 84100; 84484; 85025; 85379; 87040; 87081; 94640; 94660; 96361; 96365; 96367; 97116; 97163-GP; 97530; 99285; C9113; J0696; J1644; J1940; J1956; J2543; J3370; J3490; J7060; Q0092; Q9967

== ENCOUNTER 2021-03-05 17:09 | Inpatient (IN) | payer MEDICAID, SELFPAY ==
[~2021-03-05] VITALS: Ht 182.9 cm; Wt 102.1 kg
[~2021-03-05 17:09] MED LIST changes: +AMLO-3 PO; -AMLO10TA PO; -CEPH-588 PO; +CLIN300C2 PO; -IBUP-2213 PO; +LEVO750T51 PO; +POTA8TAB19 PO; -POTA8TER12 PO; -SULF-59 PO
[2021-03-05 17:38] VITALS: BP 154/107
--- NOTE | 2021-03-05 18:22 | NUR ---
AMBULATED TO BED 1 WITH USE OF PERSONAL WALKER
--- NOTE | 2021-03-05 18:41 | NUR ---
50/M BIB SELF WITH C/O WORSENING BILATERAL LEG AND HIP PAIN X 4 WEEKS. 02/03, [facility]. STATES HE HAS CHRONIC PAIN FROM A FALL 3 YEARS AGO, ALSO REPORTS CELLULITIS AND EDEMA TO BILATERAL LOWER EXTREMITIES. MEDHX: CHF, ASTHMA, HEP C, HTN ALLERGIES: DENIES
--- NOTE | 2021-03-05 19:12 | NUR ---
REPORT RECEIVED FROM LALA PHELPS FOR CONTINUITY OF PT CARE. AT THIS TIME.
--- NOTE | 2021-03-05 19:12 | NUR ---
REPORT GIVEN TO LALA WAITE. ALL CARE TRANSFERRED AT THIS TIME.
--- NOTE | 2021-03-05 19:21 | NUR ---
PT APPEARS TO BE RESTING W EYES CLOSED IN SUPINE POSITION W HOB SLIGHTLY ELEVATED. BED LOCKED IN LOWEST POSITION W X2 SIDERAILS UP FOR PT SAFETY. BREATHING EVEN AND UNLABORED. NAD NOTED, WILL CONTINUE TO MONITOR.
[2021-03-05] MEDS ORDERED: FUROSEMIDE 40 MG/4 ML VIAL IVP ONE ×2 (19:30→20:35)
[2021-03-05] MEDS ORDERED: MORPHINE SULFATE 4 MG/ML SYR IVP ONE (19:35)
[2021-03-05 19:37] LABS: BASOPHILS # (AUTO) 0.1 K/uL (0.00-0.22); EOSINOPHILS # (AUTO) 0.4 K/uL (0-0.4); EOSINOPHILS % (AUTO) 3.6 % (0.0-4.0); HEMATOCRIT 38.2 % (36-52); HEMOGLOBIN 12.4 g/dL (12.0-18.0); LYMPHOCYTES # (AUTO) 1.4 K/uL (2.0-11.5); LYMPHOCYTES % (AUTO) 13.8 % (20.5-51.1); MEAN CORPUSCULAR HEMOGLOBIN 26 pg (27-31); MEAN CORPUSCULAR HGB CONC 32 g/dL (33-37); MEAN CORPUSCULAR VOLUME 81.1 fL (80-94); MONOCYTES # (AUTO) 0.9 K/uL (0.8-1.0); MONOCYTES % (AUTO) 8.7 % (1.7-9.3); NEUTROPHILS # (AUTO) 7.2 K/uL (1.8-7.7); NEUTROPHILS % (AUTO) 72.9 % (42.2-75.2); PLATELET COUNT (AUTO) 222 K/uL (140-450); RED BLOOD CELL COUNT(AUTO) 4.72 MIL/uL (4.20-6.10); RED CELL DISTRIBUTION WIDTH 18.2 % (11.6-13.7); WHITE BLOOD COUNT (AUTO) 9.8 K/uL (4.8-10.8)
--- NOTE | 2021-03-05 19:42 | NUR ---
XRAY AT BEDSIDE.
[2021-03-05 19:54] LABS: ALBUMIN 2.9 g/dL (3.4-5.0); ANION GAP 14.3 (8-16); CARBON DIOXIDE 24.8 mmol/L (21-32); CREATININE 0.9 mg/dL (0.6-1.3); POTASSIUM 5.1 mmol/L (3.5-5.1); TOTAL BILIRUBIN 0.7 mg/dL (0.0-1.0)
--- NOTE | 2021-03-05 20:04 | NUR ---
US AT BEDSIDE. PT WILL PROVIDE URINE AFTER.
[2021-03-05] MEDS ORDERED: ceFAZolin 1,000 MG VIAL IV ONE (20:35)
--- NOTE | 2021-03-05 20:42 | NUR ---
nguyen sample collected from pt nares and sent to lab.
[2021-03-05] MEDS ORDERED: HYDROcodone/APAP 5/325 MG 1 TAB TAB PO PRN (20:55)
[2021-03-05] MEDS ORDERED: ONDANSETRON 4 MG/2 ML VIAL IVP PRN (20:55)
[2021-03-05] MEDS ORDERED: SODIUM PHOS / POTASSIUM PHOS 1 PKT PDR PO PRN (20:55)
[2021-03-05] MEDS ORDERED: ZOLPIDEM 5 MG TAB PO PRN (20:55)
[2021-03-05] MEDS ORDERED: POTASSIUM CHLORIDE 10 MEQ TABER PO PRN (20:55)
[2021-03-05] MEDS ORDERED: LORazepam 2 MG/ML VIAL IM/IVP PRN (20:55)
[2021-03-05] MEDS ORDERED: ACETAMINOPHEN 325 MG TAB PO PRN (20:55)
[2021-03-05] MEDS ORDERED: DOCUSATE SODIUM 100 MG GELCAP PO PRN (20:55)
[2021-03-05] MEDS ORDERED: MORPHINE SULFATE 2 MG/ML SYR IVP PRN (20:55)
[2021-03-05] MEDS ORDERED: MAG SULF 2000 MG/WATER PREMIX 50 ML IV PRN (20:55)
[2021-03-05] MEDS: NACL 0.9% 1,000 ML IV SCH (20:55)
[2021-03-05 21:00] LABS: APPEARANCE,URINE CLEAR (CLEAR); BILIRUBIN,URINE NEGATIVE (NEGATIVE); BLOOD, URINE NEGATIVE (NEGATIVE); COLOR,URINE YELLOW (YELLOW); LEUKOCYTE ESTERASE ,URINE NEGATIVE (NEGATIVE); NITRITE, URINE NEGATIVE (NEGATIVE); UGLUCOSE NEGATIVE (NEGATIVE)
--- NOTE | 2021-03-05 21:11 | NUR ---
PT C/O OF SOB, BREATHING DEEP AND RAPID 25RR. PLACED ON 2L NC O2 SAT 95%. ERMD MADE AWARE. PT ALSO REPORTS HX OF DIABETES.
--- NOTE | 2021-03-05 21:31 | NUR ---
Pt report given to LALA DE SOUZA. Transfer of care at this time.
--- NOTE | 2021-03-05 21:36 | NUR ---
PT REPORTS PAIN IMPROVEMENT AT THIS TIME. PT UNABLE TO RECALL HOME MEDS.
--- NOTE | 2021-03-05 21:49 | NUR ---
Patient will be admitted to care of . Admited to TELEMETRY. Will go to room 106B. Belongings list completed. Report to LALA DE SOUZA.
--- NOTE | 2021-03-05 22:00 | NUR ---
PATIENT WAS RECEIVED FROM ER VIA [facility] TO TRANSFER BED WITH MINIMAL ASSIST.
[2021-03-05 22:13] LABS: CHOL/HDL RATIO 2.8 (1-4.5); PHOSPHORUS 3.8 mg/dL (2.5-4.9); THYROID STIMULATING HORMONE 3.61 uIU/mL (0.34-3.74)
[2021-03-05 22:14] LABS: PROTHROMBIN TIME 11.3 secs (10.8-13.4)
[2021-03-05 22:22] LABS: BARBITURATE, URINE NEGATIVE ng/ml (NEG <=200); BENZODIAZEPINE, URINE NEGATIVE ng/mL (NEG <=200); CANNABINOID, URINE NEGATIVE ng/mL (NEG <=50); COCAINE, URINE NEGATIVE ng/mL (NEG <=300); OPIATE, URINE POSITIVE ng/mL (NEG <=2000); PHENCYCLIDINE SCREEN,URINE NEGATIVE ng/mL (NEG <=25)
[2021-03-05] MEDS ORDERED: PIPERACILLIN/TAZOBACTAM 3.375 GM VIAL IV ONE (22:25)
[2021-03-05] MEDS: PIPERACILLIN/TAZOBACTAM 3.375 GM in DEXTROSE 5% 50 ML IV SCH (22:40)
--- NOTE | 2021-03-05 22:55 | NUR ---
PATIENT C/O SEVERE PAIN IN HIS RIGHT CHEST AND BILAT LOWER LEGS, MEDICATED WITH MORPHINE 2 MG IV PUSH, TOLERATED WELL BY THE PATIENT,
[2021-03-06] VITALS: BP 138/99
--- NOTE | 2021-03-06 | NUR ---
MORPHINE 2 MG IVP WAS EFFECTIVE, PATIENT WAS IN CALM SLEEP. OXYGEN SATURATION RUNS BETWEEN 88-90%.
--- NOTE | 2021-03-06 03:00 | NUR ---
ADMISSION STILL IN PROGRESS, WOUND WAS PICTURED IN HIS RIGHT CALF, MEASURING 6 CMX 12 CMX 2 CM, BEEFY RED, DRAINING SEROUSANGUENOUS SECRETIONS, WITH NO ODOR. CLEANSED WITH WOUND CLEANSER, PAT DRY COVERED WITH NON ADHESIVE FOAM SECURED BY CURLIX DRESSING AND TAPE.
[2021-03-06 04:00] VITALS: BP 135/83
[2021-03-06] MEDS ORDERED: PIPERACILLIN/TAZOBACTAM 3.375 GM VIAL IV ONE (04:47)
[2021-03-06] MEDS: PIPERACILLIN/TAZOBACTAM 3.375 GM in DEXTROSE 5% 50 ML IV SCH ×4 (04:49→20:50)
--- NOTE | 2021-03-06 06:00 | NUR ---
PATIENT CONTINUE TO SLEEP COMFORTABLE, WAS CHANGED DUE TO SOAKING WET WITH URINE.
[2021-03-06 06:32] LABS: BASOPHILS % (AUTO) 0.5 % (0.0-2.0); EOSINOPHILS # (AUTO) 0.5 K/uL (0-0.4); EOSINOPHILS % (AUTO) 4.6 % (0.0-4.0); HEMATOCRIT 40.4 % (36-52); HEMOGLOBIN 12.6 g/dL (12.0-18.0); LYMPHOCYTES % (AUTO) 9.7 % (20.5-51.1); MEAN CORPUSCULAR HEMOGLOBIN 26 pg (27-31); MEAN CORPUSCULAR HGB CONC 31 g/dL (33-37); MEAN CORPUSCULAR VOLUME 82.4 fL (80-94); MONOCYTES # (AUTO) 0.7 K/uL (0.8-1.0); MONOCYTES % (AUTO) 7.2 % (1.7-9.3); NEUTROPHILS # (AUTO) 8.1 K/uL (1.8-7.7); PLATELET COUNT (AUTO) 224 K/uL (140-450); WHITE BLOOD COUNT (AUTO) 10.3 K/uL (4.8-10.8)
[2021-03-06 06:39] LABS: ALBUMIN 2.8 g/dL (3.4-5.0); ANION GAP 12.1 (8-16); CARBON DIOXIDE 29.2 mmol/L (21-32); MAGNESIUM 1.9 mg/dL (1.8-2.4); POTASSIUM 4.3 mmol/L (3.5-5.1)
--- NOTE | 2021-03-06 07:06 | NUR ---
RECEIVED REPORT FROM TOBACCO GRADER NURSE. PT STABLE. NO S/S OF DISTRESS. BREATHING SYMMETRICAL. CALL LIGHT IN REACH. ALL SAFETY MEASURES IN PLACE. 3L NC. IV PULLED OUT
--- NOTE | 2021-03-06 07:10 | NUR ---
RECEIVED REPORT FROM MID LEVEL BUSINESS ANALYST NURSE. PT STABLE. NO S/S OF DISTRESS. BREATHING SYMMETRICAL. CALL LIGHT IN REACH. ALL SAFETY MEASURES IN PLACE. PT ON 2L NC. IV PULLED OUT DURING LINEN CHANGE
--- NOTE | 2021-03-06 07:52 | NUR ---
ALL REPORTS WERE GIVEN, TRANSFER OF CARE WERE ENDORSED.
[2021-03-06 08:00] VITALS: BP 125/81
[2021-03-06] MEDS ORDERED: ALBUTEROL HFA MDI 90 MCG/ACTUATION 8 GM INH PRN (10:10)
--- NOTE | 2021-03-06 10:15 | NUR ---
WOUND CARE PROVIDED TO PT WITH WOUND CARE NURSE. PT TO RECEIVE WOUND CARE ON RLE MWF OR WHEN SOILED. PT TOLERATED WELL. CALL LIGHT IN REACH. ALL SAFETY MEASURES IN PLACE. NO S/S OF DISTRESS. NO IV ACCESS.
--- NOTE | 2021-03-06 10:36 | NUR ---
WOUND CARE RE-EVALUATION NOTE: RLE CALF CELLULITIS WITH PARTIAL THICKNESS SKIN LOSS 6X12X0.2CM IRREGULAR SHAPE, WOUND BED 100% GRANULATION TISSUE,SMALL AMOUNT SEROUS DRAINAGE, NO ODOR, WOUND EDGE FLAT AND ATTACH,BETO WOUND SKIN ERYTHEMA, SWELLING WITH DRY FLAKY SKIN. PAIN 0/10. POC DISCUSSED WITH PT. PT. VERBALIZES UNDERSTANDING. POC DISCUSSED WITH PRIMARY RN. RECOMMENDATIONS: -RLE CALF CLEANSE WITH WOUND CARE SOLUTION, PAT DRY, APPLY XEROFORM DRESSING, WRAP WITH KERLIX ROLL AND SECURE WITH TAPE 3X/WEEK ON MWF AND PRN IF SOILING.
[2021-03-06 12:00] VITALS: BP 133/66
--- NOTE | 2021-03-06 12:01 | NUR ---
PT RESTING IN BED WITH EYES CLOSED. NO S/S OF DISTRESS. BREATHING SYMMETRICAL. CALL LIGHT IN REACH. ALL SAFETY MEASURES IN PLACE
[2021-03-06] MEDS: GAUZE TP SCH (13:42)
--- NOTE | 2021-03-06 13:42 | NUR ---
ATTEMPTED TO REINSERT IV. PREVIOUS IV PULLED OUT. PT REFUSED IV INSERTION AT THIS TIME. ABX NOT ADMINISTERED, IV FLUIDS NOT RUNNING. CALL LIGHT IN REACH. ALL SAFETY MEASURES IN PLACE. LUNCH AT BEDSIDE. WOUND CARE PROVIDED TODAY
--- NOTE | 2021-03-06 13:53 | NUR ---
DC PLANNIN YRS OLD MALE PATIENT WAS ADMITTED FROM HOME WITH A DX OF ACS, CHF EXACERBATION BILATERAL LOWER EXT CELLULITIS. PATIENT HAS A HX OF CHF HTN, DM ,ASTHMA, HEP C METH USE AND CHRONIC BILATERAL LOWER EXT CELLULITIS. CXR SHOWED CHF WITH TRACE BILATERAL PLEURAL EFFUSION RAPID COVID TEST NEGATIVE ,VENOUS DOPPLER NEGATIVE AND TIBIA/FIBULA XRAY SHOWED NO FRACTURE. ADMINISTERED IVF, IV ABX ZOSYN AND CONTINUED HOME MEDS. CONSULTED WITH CARDIO. DC PLAN TO GO HOME WHEN STABLE CM TO FOLLOW.
--- NOTE | 2021-03-06 14:36 | NUR ---
PATIENT HAS BEEN SCREENED AND CATEGORIZED MODERATE NUTRITION RISK. PATIENT WILL BE SEEN WITHIN 3-5 DAYS OF ADMISSION. 03/06/21 03/10/21 REFERRAL RECEIVED NOT APPLICABLE LEESA ESPINOSA RD
[2021-03-06 16:00] VITALS: BP 118/82
--- NOTE | 2021-03-06 16:13 | NUR ---
PT AGREED TO IV INSERTION. NEW IV 22G RIGHT WRIST. PT TOLERATED WELL. PT PROVIDED SANDWICH. IV MEDICATION ADMINISTERED. NO S/S OF DISTRESS. CALL LIGHT IN REACH. ALL SAFETY MEASURES IN PLACE
[2021-03-06] MEDS: ATORVASTATIN 20 MG TAB PO SCH (17:27)
--- NOTE | 2021-03-06 19:29 | NUR ---
REPORT GIVEN TO EXTERIOR WORK HELPER NURSE FOR CONTINUITY OF CARE. PT STABLE. NO S/S OF DISTRESS. CALL LIGHT IN REACH. ALL SAFETY MEASURES IN PLACE. IV RUNNING PER MD ORDER Addendum: 03/06/21 at 1929 by Jennifer Rivera RN RN O2 3L NC
--- NOTE | 2021-03-06 19:30 | NUR ---
PATIENT RESTING IN BED , EASILY [place]. ON RA WITH SATURATIONS OF 86%, PLACED PATIENT ON 2 L NC O2 FLUCTUATING 87-91% INCREASED O2 TO 4L , SATURATIONS 96%. I WILL ATTEMPT TO TITRATE DOWN TOLERATED. PATIENT IS REPORTING SOB BUT IS REFUSING ANY DIURETIC MEDICATION ORDERS IF OBTAINED. URINE OUTPUT MINIMAL 200MLS NOTED. CALL LIGHT IS WITHIN REACH AND SAFETY MEASURES IN PLACE.
[2021-03-06 20:00] VITALS: BP 132/95
[2021-03-06] MEDS: METOPROLOL 25 MG TAB PO SCH (20:52)
[2021-03-06] MEDS: NACL 0.9% 1,000 ML IV SCH (20:55)
[2021-03-06] MEDS: CLINDAMYCIN 600 MG in DEXTROSE 5% 50 ML IV SCH (23:01)
[2021-03-07] VITALS: BP 121/79
--- NOTE | 2021-03-07 | NUR ---
PATIENT IS RESTING IN BED , NO ACUTE DISTRESS NOTED AND VSS. PATIENT REMAINS ON 4L NC CALL LIGHT IS WITHIN REACH. PATIENT REQUESTING CHOCOLATE PUDDING. PROVIDED PER REQUEST.
[2021-03-07 04:00] VITALS: BP 129/92
[2021-03-07] MEDS: CLINDAMYCIN 600 MG in DEXTROSE 5% 50 ML IV SCH ×3 (04:33→21:10)
[2021-03-07] MEDS: PIPERACILLIN/TAZOBACTAM 3.375 GM in DEXTROSE 5% 50 ML IV SCH ×3 (05:25→22:07)
--- NOTE | 2021-03-07 06:10 | NUR ---
UPDATED DR. OVERTON REGUARDING PATIENTS STATUS HE REMAINS ON 4L NC WITH C/O SOB. SATURATIONS ON 4L 95%. PATIENT STATED HE WILL NOT ACCEPT ANY LASIX IV OR ORAL. INFORMED MD , NO NEW ORDERS DR. OVERTON STATED HE WILL BE IN THIS AM TO SEE PATIENT.
[2021-03-07 06:55] LABS: BASOPHILS % (AUTO) 0.3 % (0.0-2.0); EOSINOPHILS # (AUTO) 0.5 K/uL (0-0.4); EOSINOPHILS % (AUTO) 4.8 % (0.0-4.0); HEMATOCRIT 39.5 % (36-52); HEMOGLOBIN 12.6 g/dL (12.0-18.0); LYMPHOCYTES # (AUTO) 1.1 K/uL (2.0-11.5); LYMPHOCYTES % (AUTO) 11.1 % (20.5-51.1); MEAN CORPUSCULAR HEMOGLOBIN 26 pg (27-31); MEAN CORPUSCULAR HGB CONC 32 g/dL (33-37); MEAN CORPUSCULAR VOLUME 82.2 fL (80-94); MONOCYTES % (AUTO) 10.5 % (1.7-9.3); NEUTROPHILS # (AUTO) 7.2 K/uL (1.8-7.7); NEUTROPHILS % (AUTO) 73.3 % (42.2-75.2); PLATELET COUNT (AUTO) 233 K/uL (140-450); WHITE BLOOD COUNT (AUTO) 9.8 K/uL (4.8-10.8)
[2021-03-07 06:56] LABS: ALBUMIN 2.7 g/dL (3.4-5.0); ANION GAP 7.9 (8-16); CARBON DIOXIDE 30.6 mmol/L (21-32); MAGNESIUM 2.2 mg/dL (1.8-2.4); POTASSIUM 4.5 mmol/L (3.5-5.1); TOTAL BILIRUBIN 0.7 mg/dL (0.0-1.0)
--- NOTE | 2021-03-07 07:37 | NUR ---
BEDSIDE REPORT GIVEN TO TAI, PATIENT RESTING IN BED , EASILY AROUSABLE AND REMAINS ON 4L NC. NO ACUTE DISTRESS AT THIS TIME. CURRENT NEEDS MET. DR. OVERTON TO ROUND ON PATIENT THIS AM.
--- NOTE | 2021-03-07 07:39 | NUR ---
RECEIVED REPORT FROM BOX LOADER RN FOR CONTINUITY OF CARE. PATIENT IS RESTING IN BED IN SEMI-FOWLERS. RESPIRATIONS EVEN AND UNLABORED ON 4L NC. NO S/S OF DISTRESS. ALL SAFETY PRECAUTIONS.
[2021-03-07 08:00] VITALS: BP 125/87
--- NOTE | 2021-03-07 08:49 | NUR ---
ASLEEP RESTING COMFORTABLY NO RESPIRATORY DISTRESS NOTED GOOD CHEST RISE SUPPLEMENTAL OXYGEN AT 4 LPM VIA NC TITRATED FIO2 TO 3 LPM JUNIOR NETWORK ADMINISTRATOR TO NOTIFY RN
[2021-03-07] MEDS: METOPROLOL 25 MG TAB PO SCH ×2 (09:46→21:02)
[2021-03-07] MEDS: lisinopriL 20 MG TAB PO SCH (09:47)
[2021-03-07] MEDS: PANTOPRAZOLE 40 MG TABEC PO SCH (09:47)
[2021-03-07] MEDS: ASPIRIN 81 MG TAB.CHEW PO SCH (09:47)
--- NOTE | 2021-03-07 09:58 | NUR ---
ADMINISTERED SCHEDULED MEDICATIONS. PATIENT VERBALIZED UNDERSTANDING. PATIENT'S 02 SAT IS AT 92% ON 3L NASAL CANULA, SITTING IN SEMI-FOWLERS. NO S/S OF DISTRESS. NO COMPLAINTS OF PAIN. ALL SAFETY PRECAUTIONS IN PLACE.
[2021-03-07 12:00] VITALS: BP 135/96
[2021-03-07] MEDS: GAUZE TP SCH (13:21)
--- NOTE | 2021-03-07 14:46 | NUR ---
PATIENT IS RESTING IN BED. NO S/S OF DISTRESS. ALL SAFETY PRECAUTIONS IN PLACE.
[2021-03-07 16:00] VITALS: BP 104/67
--- NOTE | 2021-03-07 16:35 | NUR ---
PATIENT IS RESTING IN BED IN LOW FOWLERS POSITION. NO S/S OF DISTRESS. ALL SAFETY PRECAUTIONS IN PLACE.
[2021-03-07] MEDS: ATORVASTATIN 20 MG TAB PO SCH (17:00)
[2021-03-07] MEDS ORDERED: MUPIROCIN CA NASAL 2% 1GM TUBE NS SCH (18:00)
[2021-03-07] MEDS ORDERED: CHLORHEXADINE GLUC 2% CLOTH TP SCH (18:00)
--- NOTE | 2021-03-07 19:30 | NUR ---
ENDORSED PATIENT TO RRT RN FOR CONTINUITY OF CARE. PATIENT IS STABLE.
--- NOTE | 2021-03-07 19:45 | NUR ---
RECEIVED REPORT FROM AM NURSE. PT IS IN BED SLEEPING. SAFETY MEASURES IN PLACE. WILL CONTINUE PLAN OF CARE.
[2021-03-07 20:00] VITALS: BP 117/75
--- NOTE | 2021-03-07 20:00 | NUR ---
PT IS LAYING IN BED. HOB IS ELEVATED. A&OX4, NASAL CANNULA AT 3/L, NO COMPLAINTS OF PAIN OR DISTRESS. RIGHT LOWER DRESSING IS DRY AND INTACT WITH REDNESS. VITAL SIGNS ARE STABLE. BP:117/75, HR: 94, RR:20, TEMP: 97.8, O2:95. PT. WAS GIVEN LOPRESSOR AND CLINDAMYCIN IV ABX. PT WAS EDUCATED ON MEDICATION PURPOSES AND VERBALIZE UNDERSTANDING. PT. WAS GIVEN SANDWICH REQUESTED. ALL ORDERED PRECAUTIONS IN PLACE. Addendum: 03/07/21 at 2324 by Ellen Ruiz RN TIME WAS 2100
--- NOTE | 2021-03-07 20:40 | NUR ---
PT SLEEPING COMFORTABLY ON 3LNC W/ NO DISTRESS NOTED
[2021-03-07] MEDS: NACL 0.9% 1,000 ML IV SCH (20:55)
--- NOTE | 2021-03-07 21:30 | NUR ---
ZOSYN IV ABX WAS HUNG ORDERED. PT CONTINUES TO BE STABLE. ASSESSED LUNG SOUNDS LOWER LOBES ARE DIMINISHED AND CONTINUES TO BE ON 3/L NASAL CANNULA. PT DENIES ANY PAIN AND IS REQUESTING TO SLEEP.
--- NOTE | 2021-03-07 23:00 | NUR ---
PT IS LAYING IN BED. SHOWS NO SIGNS OF DISTRESS. PT ON NASAL CANNULA 3/L. SAFETY MEASURES IN PLACE. WILL CONTINUE TO MONITOR.
[2021-03-08] VITALS: BP 126/76
--- NOTE | 2021-03-08 01:01 | NUR ---
PT HAD AN EPISODE OF SLOW VTACH. ROUNDS DONE AND CHECKED ON PATIENT. SHOWS NO SIGNS OF DISTRESS. PT DENIES PAIN. LEADS CHECK AND IS BACK TO NORMAL SR. WILL CONTINUE TO MONITOR AND WILL ENDORSE MORNING NURSE TO MONITOR PT.
--- NOTE | 2021-03-08 01:48 | NUR ---
NEW ORDER NOTED FROM DR. GÓMEZ FOR A REPEAT X-RAY FOR FRACTURE LOWER LEG.
[2021-03-08 04:00] VITALS: BP 126/88
[2021-03-08] MEDS: PIPERACILLIN/TAZOBACTAM 3.375 GM in DEXTROSE 5% 50 ML IV SCH (05:00)
[2021-03-08] MEDS: CLINDAMYCIN 600 MG in DEXTROSE 5% 50 ML IV SCH (05:26)
--- NOTE | 2021-03-08 05:45 | NUR ---
MELINASYN HUNG AND RUNNING ORDERED. PT IN BED RESTING WITH EYES CLOSED, HE IS ON 3 LITERS RESPIRATIONS SLIGHTLY LABORS WITH SLIGHT USE OF ACCESSORY MUSCLES. PT DENIES ANY PAIN , DRESSING ON RIGHT LOWER LEG DRY AND INTACT. LEFT LEG NOTED ALSO WITH CELLULITIS. BOTH LOWER LIMBS NOTED WITH NON PITTING EDEMA. ALL ORDERED PRECAUTIONS IN PLACE.
--- NOTE | 2021-03-08 06:30 | NUR ---
X RAY OF LOWER RIGHT LEG DONE AT BEDSIDE.
[2021-03-08 06:43] LABS: BASOPHILS # (AUTO) 0.1 K/uL (0.00-0.22); BASOPHILS % (AUTO) 0.6 % (0.0-2.0); EOSINOPHILS # (AUTO) 0.5 K/uL (0-0.4); HEMATOCRIT 39.7 % (36-52); HEMOGLOBIN 12.6 g/dL (12.0-18.0); LYMPHOCYTES % (AUTO) 11.3 % (20.5-51.1); MEAN CORPUSCULAR HEMOGLOBIN 26 pg (27-31); MEAN CORPUSCULAR HGB CONC 32 g/dL (33-37); MEAN CORPUSCULAR VOLUME 82.7 fL (80-94); MONOCYTES # (AUTO) 0.8 K/uL (0.8-1.0); MONOCYTES % (AUTO) 9.2 % (1.7-9.3); NEUTROPHILS # (AUTO) 6.7 K/uL (1.8-7.7); NEUTROPHILS % (AUTO) 73.9 % (42.2-75.2); PLATELET COUNT (AUTO) 234 K/uL (140-450); RED CELL DISTRIBUTION WIDTH 18.3 % (11.6-13.7); WHITE BLOOD COUNT (AUTO) 9.1 K/uL (4.8-10.8)
--- NOTE | 2021-03-08 07:24 | NUR ---
REPORT GIVEN TO MIKE REEVES DAYSHIFT NURSE FOR CONTINUITY OF CARE. PT IN STABLE CONDITION,.
--- NOTE | 2021-03-08 07:27 | NUR ---
RECEIVED REPORT FROM NEUROLOGY PHYSICIAN RN FOR CONTINUITY OF CARE. PATIENT IS RESTING IN BED. NO S/S OF DISTRESS. ALL SAFETY PRECAUTIONS IN PLACE.
--- NOTE | 2021-03-08 07:50 | NUR ---
RECEIVED ON SUPPLEMENTAL OXYGEN AT 3 LPM VIA NC SATURATION 97% TITRATED FIO2 TO 2 LPM LABORER [employer] TO NOTIFY TERA/RN LOC ASLEEP RESTING WELL GOOD CHEST RISE BREATH SOUNDS RALES BILATERAL
[2021-03-08 08:00] VITALS: BP 136/90
[2021-03-08] MEDS: ASPIRIN 81 MG TAB.CHEW PO SCH (08:55)
[2021-03-08] MEDS: METOPROLOL 25 MG TAB PO SCH (08:55)
[2021-03-08] MEDS: PANTOPRAZOLE 40 MG TABEC PO SCH (08:55)
[2021-03-08] MEDS: lisinopriL 20 MG TAB PO SCH (08:55)
--- NOTE | 2021-03-08 09:13 | NUR ---
ADMINISTERED SCHEDULED MEDICATIONS. PATIENT VERBALIZED UNDERSTANDING. PATIENT REPORTED AMBULATING TO RESTROOM WITH WALKER ASSISTANCE. 1 BM NOTED; SOFT, FORMED, BROWN. PATIENT ALSO REPORTS URINATING. LINENS CHANGED AND GOWN REPLACED. PATIENT IS LAYING IN BED IN SEMI FOWLERS POSITION. ALL SAFETY PRECAUTIONS IN PLACE.
[2021-03-08 09:34] LABS: ALBUMIN 2.6 g/dL (3.4-5.0); ANION GAP 13.8 (8-16); MAGNESIUM 2.1 mg/dL (1.8-2.4); POTASSIUM 4.8 mmol/L (3.5-5.1); TOTAL BILIRUBIN 0.6 mg/dL (0.0-1.0)
[2021-03-08] MEDS ORDERED: CLIN300C2 PO (10:24)
[2021-03-08] MEDS ORDERED: AMOX-999 PO (10:24)
--- NOTE | 2021-03-08 11:45 | NUR ---
PATIENT RESTING IN BED. NO S/S OF DISTRESS. ALL SAFETY PRECAUTIONS IN PLACE.
--- NOTE | 2021-03-08 13:05 | NUR ---
DC PLANNING SW MEET WITH PATIENT AT BEDSIDE TO DISCUSS AND GATHER HIS COLLATERAL INFORMATION. PATIENT REPORTED BEEN HOMELESS AND STAYING WITH FRIENDS. PATIENT DECLINED A.D. INFORMATION PROVIDED BY SW AND REPORTED NOT NEEDING A FOLLOW UP APPOINTMENT PATIENT WAS GUARDED AND PROVIDED LIMITED INFORMATION ABOUT HIMSELF. SW PROVIDED PATIENT WITH HOMELESS RESOURCES, FOR EMERGENCY NEEDS AND TRANSITIONAL HOUSING. SW WILL FOLLOW UP NEEDED
[2021-03-08 13:16] VITALS: BP 130/85
--- NOTE | 2021-03-08 13:30 | NUR ---
ENDORSED DISCHARGE TO PATIENT. PATIENT VERBALIZED UNDERSTANDING. IV REMOVED; CATH INTACT. HOMELESS RESOURCES PACKET GIVEN. PATIENT IS STABLE.
--- NOTE | 2021-03-08 14:10 | NUR ---
DISCHARGED PATIENT FROM UNIT VIA WHEELCHAIR. PATIENT STABLE.
== END 2021-03-08 14:10 | disposition home or self-care (01) | DRG 383 ==
LOC: MED 17:09 → MTU 20:59
PROVIDERS: ADMIT Family Medicine; ATTEND Family Medicine
DX: L03.116 Cellulitis of left lower limb (principal); J96.01 Acute respiratory failure with hypoxia; I50.43 Acute on chronic combined systolic (congestive) and diastolic (congestive) heart failure; E43 Unspecified severe protein-calorie malnutrition; E11.51 Type 2 diabetes mellitus with diabetic peripheral angiopathy without gangrene; E86.0 Dehydration; I11.0 Hypertensive heart disease with heart failure; I87.8 Other specified disorders of veins; L30.8 Other specified dermatitis; L03.115 Cellulitis of right lower limb; X58.XXXA Exposure to other specified factors, initial encounter; J45.909 Unspecified asthma, uncomplicated; S82.832A Other fracture of upper and lower end of left fibula, initial encounter for closed fracture; F15.10 Other stimulant abuse, uncomplicated; E78.2 Mixed hyperlipidemia; F17.200 Nicotine dependence, unspecified, uncomplicated; Z20.822 Contact with and (suspected) exposure to COVID-19; Z68.30 Body mass index [BMI] 30.0-30.9, adult; Z79.2 Long term (current) use of antibiotics; Z79.82 Long term (current) use of aspirin; Z79.899 Other long term (current) drug therapy; Z86.19 Personal history of other infectious and parasitic diseases; Y93.89 Activity, other specified; Y92.89 Other specified places as the place of occurrence of the external cause; Y99.8 Other external cause status; Z80.0 Family history of malignant neoplasm of digestive organs; Z80.1 Family history of malignant neoplasm of trachea, bronchus and lung; Z82.49 Family history of ischemic heart disease and other diseases of the circulatory system; Z91.14 Patient's other noncompliance with medication regimen
CPT/HCPCS: 36415; 71045; 73590; 73610; 80053; 80305; 81003; 82150; 83036; 83605; 83690; 83735; 83880; 84100; 84439; 84443; 84484; 85025; 85610; 85730; 87040; 87081; 87086; 93005; 93970; 96365; 96375; 97110; 97163-GP; 97530; 99285; J0690; J1940; J2270; J2543; J3490; J7060; Q0092

== ENCOUNTER 2021-03-30 20:51 | Inpatient (IN) | payer MEDICAID, SELFPAY ==
[~2021-03-30] VITALS: Ht 182.9 cm; Wt 104.3 kg
[~2021-03-30 20:51] MED LIST changes: +AMOX-999 PO; -LEVO750T51 PO; -POTA8TAB19 PO
[2021-03-30 20:52] VITALS: BP 153/99
--- NOTE | 2021-03-30 20:52 | NUR ---
PT BROUGHT TO BED 9 VIA [facility]
--- NOTE | 2021-03-30 20:53 | NUR ---
PATIENT BIBA CC OG GBW ONSET 2 DAYS WITH PROGRESSIVE WORSENING. PRESENTS WITH WHEEZING ON RESPIRATION AND TACHYPNEA. DENIES ANY N/V AT THIS TIME WITH HX OF CHF AND COPD. PATIENT HAS BILATERAL LOWER EXTREMITIES CELLULITIS.
[2021-03-30] MEDS ORDERED: ALBUTEROL 0.083% 2.5 MG/3 ML NEBU INH ONE (21:00)
[2021-03-30] MEDS ORDERED: IPRATROPIUM 0.02% 0.5 MG/2.5 ML NEBU INH ONE (21:00)
[2021-03-30] MEDS ORDERED: FUROSEMIDE 40 MG/4 ML VIAL IVP ONE (21:00)
[2021-03-30] MEDS ORDERED: methylPREDNISolone SS 125 MG in WATER STERILE 2 ML IV ONE (21:00)
[2021-03-30] MEDS ORDERED: VANCOMYCIN 1,000 MG in DEXTROSE 5% 250 ML IV ONE (21:10)
--- NOTE | 2021-03-30 21:13 | NUR ---
BLOOD AND SOF WALKED OVER TO LAB AT THIS TIME.
--- NOTE | 2021-03-30 21:13 | NUR ---
XRAY AT BEDSIDE
[2021-03-30] MEDS ORDERED: methylPREDNISolone SS 125 MG/2 ML VIAL ONE (21:19)
[2021-03-30] MEDS ORDERED: WATER STERILE 10 ML MC ONE (21:19)
[2021-03-30] MEDS ORDERED: VANCOMYCIN 1,000 MG VIAL ONE (21:20)
[2021-03-30 21:39] LABS: ALBUMIN 3.3 g/dL (3.4-5.0); ANION GAP 12.1 (8-16); CARBON DIOXIDE 29.1 mmol/L (21-32); POTASSIUM 4.2 mmol/L (3.5-5.1); TOTAL BILIRUBIN 0.8 mg/dL (0.0-1.0)
--- NOTE | 2021-03-30 21:44 | NUR ---
PT O2 SAT DROPPED AND MAINTAIN AT 87% RA. PT PLACED ON 2L VIA NC. O2 SAT MAINTAINED AT 95%.
[2021-03-30] MEDS ORDERED: cefTRIAXone 1,000 MG VIAL ONE (22:09)
[2021-03-30 22:34] LABS: BASOPHILS # (AUTO) 0.1 K/uL (0.00-0.22); BASOPHILS % (AUTO) 0.7 % (0.0-2.0); EOSINOPHILS # (AUTO) 0.8 K/uL (0-0.4); EOSINOPHILS % (AUTO) 8.5 % (0.0-4.0); HEMATOCRIT 39.8 % (36-52); HEMOGLOBIN 12.6 g/dL (12.0-18.0); LYMPHOCYTES # (AUTO) 1.1 K/uL (2.0-11.5); LYMPHOCYTES % (AUTO) 11.7 % (20.5-51.1); MEAN CORPUSCULAR HEMOGLOBIN 25 pg (27-31); MEAN CORPUSCULAR HGB CONC 32 g/dL (33-37); MONOCYTES # (AUTO) 0.8 K/uL (0.8-1.0); MONOCYTES % (AUTO) 7.9 % (1.7-9.3); NEUTROPHILS # (AUTO) 6.9 K/uL (1.8-7.7); NEUTROPHILS % (AUTO) 71.2 % (42.2-75.2); PLATELET COUNT (AUTO) 213 K/uL (140-450); RED BLOOD CELL COUNT(AUTO) 4.98 MIL/uL (4.20-6.10); RED CELL DISTRIBUTION WIDTH 17.9 % (11.6-13.7); WHITE BLOOD COUNT (AUTO) 9.7 K/uL (4.8-10.8)
[2021-03-30] MEDS ORDERED: VANCOMYCIN PER PHARMACY MC PRN (23:35)
[2021-03-30] MEDS ORDERED: ACETAMINOPHEN 325 MG TAB PO PRN (23:40)
[2021-03-30] MEDS ORDERED: POTASSIUM CHLORIDE 10 MEQ TABER PO PRN (23:40)
[2021-03-30] MEDS ORDERED: SODIUM PHOS / POTASSIUM PHOS 1 PKT PDR PO PRN (23:40)
[2021-03-30] MEDS ORDERED: MORPHINE SULFATE 2 MG/ML SYR IVP PRN (23:40)
[2021-03-30] MEDS ORDERED: MAGNESIUM OXIDE 400 MG TAB PO PRN (23:40)
[2021-03-30] MEDS ORDERED: ONDANSETRON 4 MG/2 ML VIAL IM/IVP PRN (23:40)
[2021-03-30] MEDS ORDERED: ALBUTEROL SULFATE/IPRATROPIU 3 ML SOL IH PRN (23:40)
[2021-03-30] MEDS ORDERED: HYDROcodone/APAP 5/325 MG 1 TAB TAB PO PRN (23:40)
[2021-03-30] MEDS ORDERED: DOCUSATE SODIUM 100 MG GELCAP PO PRN (23:40)
[2021-03-30] MEDS ORDERED: NACL 0.9% 1,000 ML IV SCH (23:40)
[2021-03-31 00:13] LABS: MAGNESIUM 1.9 mg/dL (1.8-2.4); PHOSPHORUS 4.1 mg/dL (2.5-4.9)
--- NOTE | 2021-03-31 00:20 | NUR ---
REPORT GIVEN TO DEE REEVES AT THIS TIME.
[2021-03-31 00:40] VITALS: BP 125/87
[2021-03-31 01:16] LABS: BARBITURATE, URINE NEGATIVE ng/ml (NEG <=200); BENZODIAZEPINE, URINE NEGATIVE ng/mL (NEG <=200); CANNABINOID, URINE NEGATIVE ng/mL (NEG <=50); COCAINE, URINE NEGATIVE ng/mL (NEG <=300); OPIATE, URINE NEGATIVE ng/mL (NEG <=2000); PHENCYCLIDINE SCREEN,URINE NEGATIVE ng/mL (NEG <=25)
[2021-03-31 04:00] VITALS: BP 136/92
[2021-03-31 06:42] LABS: BASOPHILS % (AUTO) 0.3 % (0.0-2.0); EOSINOPHILS % (AUTO) 0.2 % (0.0-4.0); HEMATOCRIT 39.3 % (36-52); HEMOGLOBIN 12.4 g/dL (12.0-18.0); LYMPHOCYTES # (AUTO) 0.5 K/uL (2.0-11.5); MEAN CORPUSCULAR HEMOGLOBIN 25 pg (27-31); MEAN CORPUSCULAR HGB CONC 32 g/dL (33-37); MEAN CORPUSCULAR VOLUME 80.8 fL (80-94); NEUTROPHILS # (AUTO) 8.6 K/uL (1.8-7.7); PLATELET COUNT (AUTO) 210 K/uL (140-450); RED BLOOD CELL COUNT(AUTO) 4.86 MIL/uL (4.20-6.10); WHITE BLOOD COUNT (AUTO) 10.2 K/uL (4.8-10.8)
[2021-03-31 07:20] LABS: MONOCYTES % (AUTO) 9.6 % (1.7-9.3); NEUTROPHILS % (AUTO) 84.9 % (42.2-75.2)
[2021-03-31 07:21] LABS: ANION GAP 12.1 (8-16); CARBON DIOXIDE 28.5 mmol/L (21-32); POTASSIUM 4.6 mmol/L (3.5-5.1)
[2021-03-31] MEDS: ALBUTEROL SULFATE/IPRATROPIU 3 ML SOL IH SCH ×3 (07:28→19:39)
--- NOTE | 2021-03-31 07:30 | NUR ---
RECEIVED REPORT FROM CHIP MIXER NURSE FOR CONTINUITY OF CARE. PATIENT IS IN BED SLEEPING AT THIS TIME. RESPIRATIONS ARE EVEN AND UNLABORED, WITH SOME WHEEZING NOTED. NO SIGNS OF DISTRESS NOTED. PATIENT IS ON 2L 02 VIA NC. PATIENT IS ALERT AND ORIENTED X3. PATIENT IS ON CARDIAC DIET. PATIENT ABD IS NONTENDER, NONDISTENDED WITH BOWEL SOUNDS PRESENT. PATIENT IS CONTINENT OF BOWEL AND BLADDER. PATIENT HAS IV TO R AC, 18G. IV IS INTACT AND PATENT. WILL CONTINUE TO MONITOR. CALL LIGHT WITHIN REACH. ALL SAFETY MEASURES IN PLACE.
[2021-03-31 08:00] VITALS: BP 132/93
[2021-03-31] MEDS: LORATADINE 10 MG TAB PO SCH (08:42)
[2021-03-31] MEDS: PANTOPRAZOLE 40 MG INJ VIAL IVP SCH (08:45)
--- NOTE | 2021-03-31 08:52 | NUR ---
ADMINISTERED SCHEDULED MEDICATIONS. RN ADMINISTERED IV MEDICATIONS. WILL CONTINUE TO MONITOR.
[2021-03-31] MEDS: VANCOMYCIN 1,000 MG in DEXTROSE 5% 250 ML IV SCH ×2 (10:08→17:35)
--- NOTE | 2021-03-31 11:35 | NUR ---
DID ROUNDS ON PATIENT. ATTEMPTED TO CHANGE PATIENT INTO HOSPITAL GOWN. PATIENT REFUSED. PT GOT ANGRY AND WITHDREW FROM STAFF AND YELLED "LEAVE ME ALONE". WILL ATTEMPT AT A LATER TIME.
[2021-03-31 12:00] VITALS: BP 135/80
--- NOTE | 2021-03-31 14:59 | NUR ---
ASSISTED IN CHANGING AND CLEANING PT. PT WAS COVERED IN URINE AND FECES. CLEANED UP PT. AT FIRST PT WAS ANGRY AND DID NOT WANT TO BE CLEANED. AFTER INFORMING PT ABOUT NEED FOR CLEANING AND BENEFITS OF CLEANING, PT ALLOWED STAFF TO CLEAN HIM. ALSO NOTICED A SEVERE SKIN TEAR TO R LEG, POSTERIOR. DRESSINGS ON SKIN TEAR WERE OLD, CRUSTED OVER, AND MALODOROUS. DRESSING CHANGED.
--- NOTE | 2021-03-31 15:00 | NUR ---
WHILE ADMINISTERING CARE, STAFF FOUND A SMALL KNIFE IN PT POSESSION. STAFF INFORMED PATIENT THAT NO WEAPONS ARE ALLOWED ON HOSPITAL PROPERTY. INFORMED PT THAT STAFF WAS GOING TO TAKE KNIFE AND GIVE TO SECURITY TO PLACE IN SAFE. PT STATED AN UNDERSTANDING OF ALL INFORMATION. INFORMED CHARGE NURSE WELL.
[2021-03-31 16:00] VITALS: BP 132/87
--- NOTE | 2021-03-31 17:45 | NUR ---
DID ROUNDS ON PATIENT. PATIENT IN BED RESTING AT THIS TIME. RESPIRATIONS ARE EVEN AND UNLABORED. NO SIGNS OF DISTRESS NOTED. PT REQUESTED HELP TO USE URINAL. EDUCATED PT ON HOW TO USE URINAL. PT STATED AN UNDERSTANDING OF INFORMATION PROVIDED. WILL CONTINUE TO MONITOR.
--- NOTE | 2021-03-31 19:07 | NUR ---
ENDORSED PATIENT TO ALLOPATHIC DOCTOR NURSE FOR CONTINUITY OF CARE. CALL LIGHT WITHIN REACH. ALL SAFETY MEASURES IN PLACE. PATIENT IS STABLE.
--- NOTE | 2021-03-31 19:43 | NUR ---
Assumed care. He is sleeping, but easy to aroused. He has eaten 100%. He remains on oxygen 2 liters. Will be checking his vital signs.
[2021-03-31 20:00] VITALS: BP 120/64
--- NOTE | 2021-03-31 21:06 | NUR ---
Has requested for Raphael crackers and orange juice. Both items provide. Bedside table cleared. Urinal emptied. Will continue to monitor.
[2021-04-01] VITALS: BP 112/68
[2021-04-01] MEDS: VANCOMYCIN 1,000 MG in DEXTROSE 5% 250 ML IV SCH ×2 (00:49→09:05)
[2021-04-01 04:00] VITALS: BP 114/78
[2021-04-01 06:41] LABS: ANION GAP 12.4 (8-16); CARBON DIOXIDE 28.5 mmol/L (21-32); POTASSIUM 4.9 mmol/L (3.5-5.1)
[2021-04-01 06:51] LABS: BASOPHILS # (AUTO) 0.1 K/uL (0.00-0.22); BASOPHILS % (AUTO) 0.8 % (0.0-2.0); EOSINOPHILS # (AUTO) 0.1 K/uL (0-0.4); EOSINOPHILS % (AUTO) 1.2 % (0.0-4.0); HEMATOCRIT 36.4 % (36-52); HEMOGLOBIN 11.4 g/dL (12.0-18.0); LYMPHOCYTES # (AUTO) 1.2 K/uL (2.0-11.5); LYMPHOCYTES % (AUTO) 10.8 % (20.5-51.1); MEAN CORPUSCULAR HEMOGLOBIN 25 pg (27-31); MEAN CORPUSCULAR HGB CONC 31 g/dL (33-37); MEAN CORPUSCULAR VOLUME 79.5 fL (80-94); MONOCYTES # (AUTO) 1.2 K/uL (0.8-1.0); MONOCYTES % (AUTO) 10.7 % (1.7-9.3); NEUTROPHILS # (AUTO) 8.6 K/uL (1.8-7.7); NEUTROPHILS % (AUTO) 76.5 % (42.2-75.2); PLATELET COUNT (AUTO) 198 K/uL (140-450); RED BLOOD CELL COUNT(AUTO) 4.58 MIL/uL (4.20-6.10); RED CELL DISTRIBUTION WIDTH 17.5 % (11.6-13.7); WHITE BLOOD COUNT (AUTO) 11.3 K/uL (4.8-10.8)
[2021-04-01] MEDS: ALBUTEROL SULFATE/IPRATROPIU 3 ML SOL IH SCH ×3 (07:00→19:12)
--- NOTE | 2021-04-01 07:15 | NUR ---
RECEIVED REPORT FROM SOLAR PROJECT MANAGER NURSE FOR CONTINUITY OF CARE. PT ASLEEP NO DISTRESS NOTE. IV SITE ON RIGHT AC 18 JEREMY INTACT NO S/S OF INFECTION. ALL SAFETY MEASURE IN PLACE. CALL LIGHT WITH IN EASY REACH.
[2021-04-01 08:00] VITALS: BP 106/63
--- NOTE | 2021-04-01 09:00 | NUR ---
WOUND CARE EVALUATION NOTE: WOUND ASSESSMENT DONE WITH THIS 50 Y/O PT. AAX4. WOUND TO RLE CALF CELLULITIS, FULL THICKNESS SKIN LOSS 6X13X0.3CM, IRREGULAR SHAPE, WOUND BED 100% GRANULATION TISSUE,SMALL AMOUNT SEROUS DRAINAGE, NO ODOR, WOUND EDGE FLAT AND ATTACH,BETO WOUND SKIN ERYTHEMA, SWELLING WITH DRY OLD HEALED SCARS PAIN 2/10. POC DISCUSSED WITH PT. PT. VERBALIZES UNDERSTANDING. POC DISCUSSED WITH PRIMARY RN. RECOMMENDATIONS: -CONTINUE IV ANTIBIOTIC ORDERED -RLE CALF CLEANSE WITH WOUND CARE SOLUTION, PAT DRY, APPLY XEROFORM DRESSING, COVER WITH DRY DRY DRESSING, SECURE WITH TAPE 3X/WEEK ON MWF AND PRN IF SOILING.
[2021-04-01] MEDS: PANTOPRAZOLE 40 MG INJ VIAL IVP SCH (09:02)
[2021-04-01] MEDS: LORATADINE 10 MG TAB PO SCH (09:02)
[2021-04-01] MEDS: FUROSEMIDE 40 MG/4 ML VIAL IVP SCH (09:03)
--- NOTE | 2021-04-01 09:18 | NUR ---
GIVEN ALL DUE MEDICATION AND RN GIVEN IV MEDICATION ORDERED. NO ADVERSE REACTION NOTED. PT. COMPLAIN OF PAIN MEDICATED ORDERED. ALL SAFETY MEASURE IN PLACE. CALL LIGHT WITH IN EASY REACH.
--- NOTE | 2021-04-01 09:25 | NUR ---
PATIENT HAS BEEN SCREENED AND CATEGORIZED MODERATE NUTRITION RISK. PATIENT WILL BE SEEN WITHIN 3-5 DAYS OF ADMISSION. 04/01/21 04/04/[address]
--- NOTE | 2021-04-01 09:35 | NUR ---
PER [facility] HOLD CYNTHIA [facility]IE THROUGH IS DRAW.
--- NOTE | 2021-04-01 11:35 | NUR ---
PT ON BED ASLEEP NO DISTRESS NOTED. ALL SAFETY MEASURE IN PLACE. CALL LIGHT WITH IN EASY REACH.
[2021-04-01 12:00] VITALS: BP 136/76
--- NOTE | 2021-04-01 13:28 | NUR ---
PT ASSISTED TO USE BEDSIDE COMMODE NEED EXTENSIVE ASSIST WITH TRANSFER AND CLEANSE OF HIMSELF. CHANGE ALL LINEN AND CLOTHES REMOVED AND CHANGE. NOTED BOTH LEG STILL WITH SWELLING AND SCROTUM ALSO NOTED WITH SWELLING. PT GIVEN BREATHING TREATMENT BY RT AFTER WE HAD CLEANSE HIM. TOLERATED WELL. ALL SAFETY MEASURE IN PLACE. CALL LIGHT WITH IN EASY REACH.
--- NOTE | 2021-04-01 13:46 | NUR ---
PT ASLEEP BUT ABLE TO WAKE UP WHEN CALLED BUT STATED DON'T COME TO BOTHER ME. ALL SAFETY MEASURE IN PLACE. CALL LIGHT WITH IN EASY REACH.
--- NOTE | 2021-04-01 14:33 | NUR ---
[facility] CALLED THAT [facility] IS [facility] WAITING FOR ORDER.
--- NOTE | 2021-04-01 14:36 | NUR ---
PER PHARMACY MIRELLA Jackson/Sisi MARIE WILL DO [facility] TOMORROW.
--- NOTE | 2021-04-01 14:42 | NUR ---
DC PLANNING: THE PATIENT ADMITTED THROUGH THE ER WITH C/O LE EDEMA WITH SOB. H/O SMOKING, METH USE, COPD, CHF AND CELLULITIS. CXR CONFIRMS CHF, PATIENT GIVEN VANCO AND SOLUMEDROL IN THE ED. CM AND SW SPOKE WITH THE PATIENT AT BEDSIDE, HE STATES HE HAS NOT USED METH FOR SEVERAL DAYS, TOX SCREEN POSITIVE ON ADMISSION. THE PATIENT WAS SOB HE WAS SPEAKING, ON 02 3L. STATES HE IS HOMELESS AND LIVING ON THE STREET, IS ABLE TO AMBULATE WITH A FWW WITH SEAT BUT HAS DIFFICULTY WITH MOBILITY. THE PATIENT HAS NO SOURCE OF INCOME PER HIS STATEMENT, HE WAS GIVEN INFORMATION BY VILMA ON HIS LAST ADMISSION ON APPLYING FOR SSI, UNCLEAR IS HE TRIED TO APPLY AND FAILED OR DID NOT APPLY. WAS ENCOURAGED TO TRY TO FOLLOW UP AGAIN, SW OFFERED TO ASSIST WITH CALLING SSI TO START THE PROCESS. DISCUSSED POSSIBILITY OF DRUG REHAB AND B&C PLACEMENT IF HE GETS SSI, THE PATIENT STATES HE WILL THINK ABOUT THESE OPTIONS. CM WILL FOLLOW FOR NEEDS. Addendum: 04/01/21 at 1837 by Omayra Maza CM DC PLANNING PATIENT IS A 50-YEAR-OLD MALE ADMITTED ON THE [facility]/ER 03/30/2021. DUE TO PATIENT HAVING COMPLAINS OF LE AND HAS HX. OF SEVERAL HOSPITALIZATION DUE TO CHEST PAIN AND DIAGNOSIS HX. OF CONGESTIVE HEART FAILURE. VILMA AND MARIBEL MET WITH PATIENT AT BEDSIDE DISCUSS AND GATHER HIS COLLATERAL INFORMATION. PER PATIENT HE IS LIVING IN THE STREETS AND WHEN ASKED FOR DETAILS HE IS VAGUE; PER PATIENT HE IS HOMELESS AND STRUGGLES MOVING AROUND WITH ONLY HIS WALKER. PT. REPORTED NO INCOME DUE TO STILL NOT HAVING APPLY FOR SSI, DPSS FOR EVEN GR, PER PATIENT HE WILL BE FINDING A CUSTODIAL IN ONE OF THE PLACES IN THE LIST OF RESOURCES THIS ELECTROSTATIC PAINT OPERATOR PROVIDED TO HIM. AND WILL ALSO BE APPLYING IN THE PHONE FOR ASSISTANCE WITH ANY SOURCE OF INCOME FOR GR, OR SSI VIA PHONE. SW ALSO PROVIDED A LIST OF RESOURCES FOR HOMELESS SHELTERS, EMERGENCY BASIC RESOURCES, SUBSTANCE ABUSE AND LOW-COST HOUSING. SW ALSO PROVIDED PATIENT WITH RECOURSES FOR FOOD. PER PATIENT HE DO NOT HAVE ANY ADVANCE DIRECTIVES AND WAS NOT INTERESTED ON GETTING INFORMATION PACKET PROVIDED BY VILMA AT THE TIME OF VISIT. PATIENT REPORTED HAVING A WALKER ONLY HIS DME. PATIENT ALSO REPORTED NOT HAVING ANY ISSUES GETTING OR TAKING HIS MEDICATIONS THAT CAN GETS FROM A [facility] IN [place]. PATIENT STATED THAT HE HAS A PRIMARY DOCTOR HOWEVER HE DO NOT FOLLOW UP OFTEN SW DISCUSS THE NEED FOR A FOLLOW UP APPOINTMENT WITHIN 7 DAYS AFTER HIS DISCHARGE AND HE AGREED TO ATTEND TO APPOINTMENT SCHEDULE BY SW CLOSE TO HIS DC FROM [facility] DATE. PATIENT REPORTED HE WILL BE GOING TO A CUSTODIAL AFTER DISCHARGE AND WILL NOT NEED TRANSPORT OR A BUS PASS. SW WILL FOLLOW UP NEEDED. Addendum: 04/02/21 at 1610 by Omayra Maza CM DC PLANNING VILMA CALLED [facility] AT AND SPOKE TO ALBA TO SCHEDULED A FOLLOW UP APPOINTMENT FOR PATIENT AFTER DC FROM [facility]. ALBA SCHEDULED PATIENT'S FOLLOW UP APPOINTMENT FOR Thursday04/15/2021 AT 10:00AM WITH MD MAGEN DEGE. PER ALBA THAT IS THE CLOSES APPOINTMENT AVAILABLE DUE TO THE HOLIDAYS. VILMA THANKED HER AND ENDED THE CALL. VILMA MET WITH PATIENT AT BEDSIDE AND PROVIDED HIM WITH HIS APPOINTMENT INFORMATION SCHEDULED FOR 04/15/2021. SW HANDED APPOINTMENT NOTE TO PATIENT WITH ADDRESS, DATE AND TIME OF APPOINTMENT. PATIENT WAS AWAKE AND ALERT AND THANKED THESE ELECTROSTATIC PAINT OPERATOR FOR THE INFORMATION.
[2021-04-01 16:00] VITALS: BP 106/67
--- NOTE | 2021-04-01 16:46 | NUR ---
RECEIVED REPORT FROM LAB MRSA NARES POSITIVE INFORM DR. NICOLE. WAITING FOR RESPONSE.
--- NOTE | 2021-04-01 17:18 | NUR ---
PATIENT SLEEPING. BREATHING EVEN AND UNLABORED. NO ACUTE DISTRESS NOTED. ALL SAFETY MEASURES IN PLACE. CALL LIGHT WITHIN REACH. WILL CONTINUE TO MONITOR.
[2021-04-01] MEDS ORDERED: CHLORHEXADINE GLUC 2% CLOTH TP SCH (18:10)
--- NOTE | 2021-04-01 18:28 | NUR ---
PATIENT REQUEST BREATHING TREATMENT. RT NOTIFIED.
--- NOTE | 2021-04-01 18:47 | NUR ---
PT ON STABLE CONDITION.. NO ADVERSE REACTION ON ANTIBIOTIC THERAPY. DENIES PAIN AT THIS TIME WILL ENDORSE TO FINAL INSPECTOR AND TESTER.
--- NOTE | 2021-04-01 19:05 | NUR ---
ENDORSED TO JUNIOR COPYWRITER NURSE FOR CONTINUITY OF PATIENT CARE. PATIENT STABLE.
--- NOTE | 2021-04-01 19:44 | NUR ---
RECEIVED REPORT FROM DAY SHIFT NURSE FOR CONTINUITY OF CARE. PT AWAKE AND ALERT.PT DOESN'T WANT TO PUT HIS O2 ON. RT CAME TO PT'S ROOM AND WAS PUT ON RA. PT O2 SAT IS AT 93% NO DISTRESS NOTED. IV SITE ON RIGHT AC 18 G INTACT. ALL SAFETY MEASURES IN PLACE. CALL LIGHT WITH IN REACH. WILL CONTINUE TO MONITOR.
[2021-04-01 20:00] VITALS: BP 116/74
[2021-04-01] MEDS ORDERED: MUPIROCIN CA NASAL 2% 1GM TUBE NS SCH (20:00)
--- NOTE | 2021-04-01 20:44 | NUR ---
SCHEDULED HEPARIN GIVEN. PT REFUSED BACTROBAN OINTMENT. EXPLAINED TO THE PT IMPORTANCE OF THE NASAL OINTMENT,PT VERBALIZED UNDERSTANDING AND STILL DOESN'T WANT IT.PT IS ON 2L VIA NC. O2 SAT AT 93%. ALL PRECAUTIONS IN PLACE.CALL LIGHT WITHIN REACH WILL CONTINUE TO MONITOR.
--- NOTE | 2021-04-01 23:30 | NUR ---
REINSERTED ANOTHER. ANTIBIOTICS WAS GIVEN. PT TOLERATED WELL. ALL PRECAUTIONS IN PLACE. WILL CONTINUE TO MONITOR. Addendum: 04/02/21 at 0524 by Adi Briones RN REINSERTED ANOTHER IV.
[2021-04-02] VITALS: BP 133/86
--- NOTE | 2021-04-02 01:30 | NUR ---
PT ASLEEP BUT ABLE TO WAKE UP WHEN CALLED.BREATHING EQUAL AND UNLABORED. ALL PRECAUTIONS IN PLACE. WILL CONTINUE TO MONITOR.
[2021-04-02 04:00] VITALS: BP 132/84
--- NOTE | 2021-04-02 05:25 | NUR ---
ROUNDS MADE. PT HAS NO S/SX OF DISTRESS. BREATHING UNLABORED AND EQUAL. ALL PRECAUTION IN PLACE.CALL LIGHT WITHIN REACH. WILL CONTINUE TO MONITOR.
[2021-04-02 06:41] LABS: BASOPHILS # (AUTO) 0.1 K/uL (0.00-0.22); EOSINOPHILS # (AUTO) 0.5 K/uL (0-0.4); EOSINOPHILS % (AUTO) 6.4 % (0.0-4.0); HEMATOCRIT 37.6 % (36-52); HEMOGLOBIN 11.8 g/dL (12.0-18.0); LYMPHOCYTES # (AUTO) 1.1 K/uL (2.0-11.5); LYMPHOCYTES % (AUTO) 13.9 % (20.5-51.1); MEAN CORPUSCULAR HEMOGLOBIN 25 pg (27-31); MEAN CORPUSCULAR HGB CONC 31 g/dL (33-37); MEAN CORPUSCULAR VOLUME 79.9 fL (80-94); MONOCYTES # (AUTO) 0.8 K/uL (0.8-1.0); MONOCYTES % (AUTO) 9.8 % (1.7-9.3); NEUTROPHILS # (AUTO) 5.6 K/uL (1.8-7.7); NEUTROPHILS % (AUTO) 68.9 % (42.2-75.2); PLATELET COUNT (AUTO) 181 K/uL (140-450); RED CELL DISTRIBUTION WIDTH 17.5 % (11.6-13.7); WHITE BLOOD COUNT (AUTO) 8.1 K/uL (4.8-10.8)
[2021-04-02 07:09] LABS: ANION GAP 9.7 (8-16); CARBON DIOXIDE 29.9 mmol/L (21-32); CREATININE 0.8 mg/dL (0.6-1.3); POTASSIUM 4.6 mmol/L (3.5-5.1)
[2021-04-02] MEDS: ALBUTEROL SULFATE/IPRATROPIU 3 ML SOL IH SCH ×2 (07:23→12:52)
--- NOTE | 2021-04-02 07:30 | NUR ---
PT ENDORSED TO AM SHIFT NURSE FOR CONTINUITY OF CARE. PT STABLE.
--- NOTE | 2021-04-02 07:31 | NUR ---
RECEIVED PATIENT FROM ELECTRICAL SYSTEMS DRAFTER NURSE FOR CONTINUITY OF CARE. PATIENT IS ON TELE MONITOR. A/A/O X3 WITH EPISODE OF FORGETFUL. RESPIRATORY EVEN AND UNLABORED, ON 2L OXYGEN, NO SIGN OF DISTRESS NOTED. SKIN WARM, DRY, NON DIAPHORETIC. RLE CALF CELLULITIS, DRESSING INTACT, DRY AND CLEAN. IV ON RIGHT HAND 20G, INTACT AND PATENT, SALINE LOCK. URINAL AT BEDSIDE. 4 WHEEL WALKER AT BEDSIDE. PATIENT DENIES ANY PAIN OR DISCOMFORT. ABLE TO MAKE NEED KNOWN. PLAN OF CARE DISCUSSED, PATIENT VERBALIZED UNDERSTANDING. PRECAUTION IN PLACE. CALL LIGHT WITHIN REACH. WILL CONTINUE TO MONITOR.
[2021-04-02 08:00] VITALS: BP 121/77
[2021-04-02] MEDS: PANTOPRAZOLE 40 MG INJ VIAL IVP SCH (08:45)
--- NOTE | 2021-04-02 08:45 | NUR ---
SCHEDULE MEDICATIONS GIVEN WITH EDUCATION, PATIENT VERBALIZED UNDERSTANDING. PATIENT TOLERATED WELL, NO SIGN OF DISTRESS NOTED. PRECAUTION IN PLACE. CALL LIGHT WITHIN REACH. WILL CONTINUE TO MONITOR.
[2021-04-02] MEDS: FUROSEMIDE 40 MG/4 ML VIAL IVP SCH (08:46)
[2021-04-02] MEDS: LORATADINE 10 MG TAB PO SCH (08:46)
[2021-04-02] MEDS ORDERED: VANCOMYCIN HCL 1.25 GM in DEXTROSE 5% 250 ML IV SCH (09:00)
--- NOTE | 2021-04-02 10:10 | NUR ---
ASSIST PATIENT TO EMPTY HIS URINAL, 2000ML OF URINE, CLEAR YELLOW. NO SIGN OF DISTRESS NOTED. PRECAUTION IN PLACE. CALL LIGHT WITHIN REACH. WILL CONTINUE TO MONITOR.
[2021-04-02 12:00] VITALS: BP 139/82
--- NOTE | 2021-04-02 12:30 | NUR ---
PATIENT REQUESTS BREATHING TREATMENT, RT AWARE.
[2021-04-02] MEDS ORDERED: METO50TE PO (12:53)
[2021-04-02] MEDS ORDERED: LISI10TA30 PO (12:53)
[2021-04-02] MEDS ORDERED: ATOR20TA40 PO (12:53)
[2021-04-02] MEDS ORDERED: ASPI-1822 PO (12:53)
[2021-04-02] MEDS ORDERED: LORA10TA19 PO (12:53)
[2021-04-02] MEDS ORDERED: FURO-570 PO (12:53)
--- NOTE | 2021-04-02 13:46 | NUR ---
SPOKE WITH CM REGARDING PATIENT DISCHARGE AND OUTPATIENT CARDIOLOGY F/U. CM AWARE.
--- NOTE | 2021-04-02 16:40 | NUR ---
DISCHARGE EDUCATION GIVEN. IV REMOVED, BLEEDING CONTROL. ID BAND REMOVED. BUS PASS PROVIDED WITH DISCHARGE HANDOUT. PATIENT DENIES ANY PAIN OR DISCOMFORT. RESPIRATORY EVEN AND UNLABORED, ON ROOM AIR. NO SIGN OF DISTRESS NOTED.
--- NOTE | 2021-04-02 17:39 | NUR ---
PATIENT IS AMBULATING WITH [id number] TO LOBBY. NO SIGN OF DISTRESS NOTED. DISCHARGE PATIENT TO SELF. SPOKE WITH SECURITY TO RETURN PATIENT BELONGINGS.
[2021-04-03] MEDS ORDERED: NON ADHERENT DRESSING TP SCH (09:00)
== END 2021-04-02 17:45 | disposition home or self-care (01) | DRG 383 ==
LOC: MED 20:51 → MTU 23:40
PROVIDERS: ADMIT Hospitalist; ATTEND Hospitalist
DX: L03.116 Cellulitis of left lower limb (principal); J96.01 Acute respiratory failure with hypoxia; G92.9 Unspecified toxic encephalopathy; I50.43 Acute on chronic combined systolic (congestive) and diastolic (congestive) heart failure; E44.1 Mild protein-calorie malnutrition; I11.0 Hypertensive heart disease with heart failure; E86.0 Dehydration; J44.1 Chronic obstructive pulmonary disease with (acute) exacerbation; L03.115 Cellulitis of right lower limb; I87.8 Other specified disorders of veins; B19.20 Unspecified viral hepatitis C without hepatic coma; Z20.822 Contact with and (suspected) exposure to COVID-19; F17.210 Nicotine dependence, cigarettes, uncomplicated; E78.2 Mixed hyperlipidemia; F15.90 Other stimulant use, unspecified, uncomplicated; E11.51 Type 2 diabetes mellitus with diabetic peripheral angiopathy without gangrene; R74.01 Elevation of levels of liver transaminase levels; Z91.14 Patient's other noncompliance with medication regimen; Z79.899 Other long term (current) drug therapy; Z82.49 Family history of ischemic heart disease and other diseases of the circulatory system; Z80.1 Family history of malignant neoplasm of trachea, bronchus and lung; Z80.0 Family history of malignant neoplasm of digestive organs; Z71.51 Drug abuse counseling and surveillance of drug abuser; Z68.31 Body mass index [BMI] 31.0-31.9, adult
CPT/HCPCS: 36415; 71045; 80048; 80053; 80202; 80305; 83605; 83735; 83880; 84100; 84484; 85025; 87040; 87081; 93005; 94640; 96365; 96375; 99291; C9113; J0696; J1644; J1940; J2930; J3370; J7060; J7613; J7644; Q0092

== ENCOUNTER 2021-04-29 20:09 | Emergency (ER) | payer MEDICAID, SELFPAY ==
[~2021-04-29] VITALS: Ht 182.9 cm; Wt 114.3 kg
[~2021-04-29 20:09] MED LIST changes: -AMLO-3 PO; -AMOX-999 PO; +ASPI-1822 PO; -ASPI81CT95 PO; -CLIN300C2 PO; -LACT10CA1 PO; +LISI10TA30 PO; -LISI20TA29 PO; +LORA10TA19 PO; -METO25TA PO; +METO50TE PO; -PANT40EC56 PO
[2021-04-29 20:20] VITALS: BP 132/96
--- NOTE | 2021-04-29 20:21 | NUR ---
PT OFFLOADED TO LOBBY.
[2021-04-29] MEDS ORDERED: cefTRIAXone 1,000 MG in DEXT 5% MINI-BAG PLUS 50 ML IV ONE (23:30)
[2021-04-30 01:14] LABS: BASOPHILS # (AUTO) 0.1 K/uL (0.00-0.22); BASOPHILS % (AUTO) 0.6 % (0.0-2.0); EOSINOPHILS # (AUTO) 0.6 K/uL (0-0.4); EOSINOPHILS % (AUTO) 5.6 % (0.0-4.0); HEMATOCRIT 38.3 % (36-52); HEMOGLOBIN 12.5 g/dL (12.0-18.0); LYMPHOCYTES % (AUTO) 9.1 % (20.5-51.1); MEAN CORPUSCULAR HEMOGLOBIN 25 pg (27-31); MEAN CORPUSCULAR HGB CONC 33 g/dL (33-37); MEAN CORPUSCULAR VOLUME 77.1 fL (80-94); MONOCYTES % (AUTO) 9.4 % (1.7-9.3); NEUTROPHILS # (AUTO) 7.9 K/uL (1.8-7.7); NEUTROPHILS % (AUTO) 75.3 % (42.2-75.2); PLATELET COUNT (AUTO) 235 K/uL (140-450); RED BLOOD CELL COUNT(AUTO) 4.97 MIL/uL (4.20-6.10); WHITE BLOOD COUNT (AUTO) 10.5 K/uL (4.8-10.8)
[2021-04-30 01:44] LABS: ALBUMIN 3.5 g/dL (3.4-5.0); ANION GAP 13.6 (8-16); CARBON DIOXIDE 27.3 mmol/L (21-32); POTASSIUM 3.9 mmol/L (3.5-5.1); TOTAL BILIRUBIN 0.8 mg/dL (0.0-1.0)
--- NOTE | 2021-04-30 04:16 | NUR ---
ATTEMPTED TO GET PT TO COME TO A BED. PT STATES "NO, I'M GOOD." AND FELL BACK ASLEEP IN CHAIR IN LOBBY. WILL REATTEMPT.
[2021-04-30] MEDS ORDERED: CEPH500C16 PO (05:07)
[2021-04-30 05:25] VITALS: BP 132/96
[2021-04-30] MEDS ORDERED: NAPR-54 PO (08:38)
[2021-05-10] MEDS ORDERED: PRED20TA5 PO (02:12)
== END 2021-04-30 05:25 | disposition home or self-care (01) ==
LOC: MED 20:09
DX: L03.116 Cellulitis of left lower limb (principal); L03.115 Cellulitis of right lower limb; Z20.822 Contact with and (suspected) exposure to COVID-19; J44.9 Chronic obstructive pulmonary disease, unspecified; I11.0 Hypertensive heart disease with heart failure; I50.9 Heart failure, unspecified; F17.210 Nicotine dependence, cigarettes, uncomplicated; Z79.2 Long term (current) use of antibiotics; Z79.82 Long term (current) use of aspirin; Z79.899 Other long term (current) drug therapy; Z79.51 Long term (current) use of inhaled steroids
CPT/HCPCS: 36415; 71045; 80053; 83605; 83880; 84484; 85025; 87040; 93005; 99285

== ENCOUNTER 2021-04-30 07:05 | Emergency (ER) | payer MEDICAID ==
[~2021-04-30] VITALS: Ht 182.9 cm; Wt 95.3 kg
[~2021-04-30 07:05] MED LIST changes: +CEPH500C16 PO
[2021-04-30 08:23] VITALS: BP 149/95
[2021-04-30] MEDS ORDERED: NAPR-54 PO (08:38)
[2021-04-30 09:10] VITALS: BP 139/89
--- NOTE | 2021-04-30 09:10 | NUR ---
Patient discharged with v/s stable. Written and verbal after care instructions given and explained. Patient alert, oriented and verbalized understanding of instructions. Ambulatory with to home. All questions addressed prior to discharge. ID band removed. Patient advised to follow up with PMD. Rx of NAPROSYN given. Patient educated on indication of medication including possible reaction and side effects. Opportunity to ask questions provided and answered.HOMELESS PT WAIVER FORM SIGNATURE DONE, FOOD GIVEN
[2021-05-10] MEDS ORDERED: PRED20TA5 PO (02:12)
== END 2021-04-30 09:10 | disposition home or self-care (01) ==
LOC: MED 07:05
DX: L03.116 Cellulitis of left lower limb (principal); L03.115 Cellulitis of right lower limb; I87.8 Other specified disorders of veins; L30.9 Dermatitis, unspecified; I11.0 Hypertensive heart disease with heart failure; I50.9 Heart failure, unspecified; J44.9 Chronic obstructive pulmonary disease, unspecified; E11.9 Type 2 diabetes mellitus without complications; Z79.1 Long term (current) use of non-steroidal anti-inflammatories (NSAID); Z79.2 Long term (current) use of antibiotics; Z79.82 Long term (current) use of aspirin; Z79.899 Other long term (current) drug therapy; Z79.51 Long term (current) use of inhaled steroids
CPT/HCPCS: 99282

== ENCOUNTER 2021-05-06 17:37 | Inpatient (IN) | payer MEDICAID, SELFPAY ==
[~2021-05-06] VITALS: Ht 182.9 cm; Wt 104.3 kg
--- NOTE | 2021-05-06 12:00 | NUR ---
DISCHARGE PLANNING SW ATTEMPTED TO MEET WITH PATIENT TO GET AN UPDATE ON HIS COLLATERAL AND HOUSING STATUS. SW PROVIDED PATIENT WITH RESOURCES TO SHELTERS, TRANSITIONAL HOUSING AND LOW COST HOUSING. WELL RESOURCES TO SUBSTANCE ABUSE PROGRAMS AND RESIDENTIAL. PATIENT DECLINED INFORMATION " STATING THAT HE ALREADY HAS THE INFORMATION AND IS NOT READY TO GET SOBER" SW OFFER TO PATIENT TO MAKE A FOLLOW UP APPOINTMENT FOR PATIENT AND HE ALSO DECLINED " STATING NO I DO NOT WANT ONE I WILL NOT GO ANYWAY ILL JUST COME TO THE HOSPITAL IF I NEED TO SEE A DOCTOR" PATIENT ASKED THESE SUPERVISOR SHEET MANUFACTURING TO LEAVE. SW LEFT THE ROOM. SW WILL FOLLOW UP NEEDED.
[~2021-05-06 17:37] MED LIST changes: +NAPR-54 PO
--- NOTE | 2021-05-06 17:37 | NUR ---
CODY ANSARI VIA GURNEY TO BED 05.
[2021-05-06 17:40] VITALS: BP 150/95
--- NOTE | 2021-05-06 17:43 | NUR ---
51 Y/O MALE BIBA HOMELESS C/O SOB X2 DAYS. CELLULITIS TO BILAT LEGS. PT STATES 10/10 CHEST PAIN. 88% ON ROOM AIR. IV SITE PLACED BY EMS TO LT AC 18G, INTACT, PATENT. PT PLACED ON 2 L NASAL CANNULA. MEDHX: CHF, HTN, DM, CVA NKA
[2021-05-06] MEDS ORDERED: methylPREDNISolone SS 125 MG/2 ML VIAL IVP ONE (18:05)
[2021-05-06] MEDS ORDERED: ALBUTEROL SULFATE/IPRATROPIU 3 ML SOL IH ONE (18:05)
[2021-05-06] MEDS ORDERED: FUROSEMIDE 40 MG/4 ML VIAL IVP ONE (18:05)
--- NOTE | 2021-05-06 18:20 | NUR ---
PT PLACED ON BIPAP BY RT BERNSTEIN
--- NOTE | 2021-05-06 18:21 | NUR ---
RT AT BEDSIDE ADMINISTERING BREATHING TX
--- NOTE | 2021-05-06 18:25 | NUR ---
XRAY AT BEDSIDE
[2021-05-06 18:28] VITALS: BP 149/99
--- NOTE | 2021-05-06 18:33 | NUR ---
URINE, LIZANDRO, AND FLU SAMPLES COLLECTED AND HANDED TO RIGOBERTO CAMPBELL
--- NOTE | 2021-05-06 18:33 | NUR ---
LAB AT BEDSIDE
[2021-05-06] MEDS ORDERED: NITROGLYCERIN 0.4 MG TAB SL ONE (18:40)
[2021-05-06 19:11] LABS: APPEARANCE,URINE CLEAR (CLEAR); BILIRUBIN,URINE 2+ (NEGATIVE); BLOOD, URINE NEGATIVE (NEGATIVE); COLOR,URINE ORANGE (YELLOW); LEUKOCYTE ESTERASE ,URINE NEGATIVE (NEGATIVE); NITRITE, URINE NEGATIVE (NEGATIVE); PH,URINE 5.5 (5.0-9.0); UGLUCOSE TRACE (NEGATIVE)
[2021-05-06 19:12] LABS: BASOPHILS # (AUTO) 0.1 K/uL (0.00-0.22); BASOPHILS % (AUTO) 0.8 % (0.0-2.0); EOSINOPHILS # (AUTO) 0.1 K/uL (0-0.4); EOSINOPHILS % (AUTO) 0.8 % (0.0-4.0); HEMATOCRIT 37.5 % (36-52); HEMOGLOBIN 11.9 g/dL (12.0-18.0); LYMPHOCYTES # (AUTO) 0.7 K/uL (2.0-11.5); LYMPHOCYTES % (AUTO) 7.5 % (20.5-51.1); MEAN CORPUSCULAR HEMOGLOBIN 25 pg (27-31); MEAN CORPUSCULAR HGB CONC 32 g/dL (33-37); MEAN CORPUSCULAR VOLUME 77.7 fL (80-94); MONOCYTES # (AUTO) 0.9 K/uL (0.8-1.0); MONOCYTES % (AUTO) 9.3 % (1.7-9.3); NEUTROPHILS # (AUTO) 8.1 K/uL (1.8-7.7); NEUTROPHILS % (AUTO) 81.6 % (42.2-75.2); PLATELET COUNT (AUTO) 193 K/uL (140-450); RED BLOOD CELL COUNT(AUTO) 4.83 MIL/uL (4.20-6.10); RED CELL DISTRIBUTION WIDTH 18.8 % (11.6-13.7); WHITE BLOOD COUNT (AUTO) 9.9 K/uL (4.8-10.8)
--- NOTE | 2021-05-06 19:18 | NUR ---
Pt report given to GABRIEL REEVES. Transfer of care at this time.
[2021-05-06 19:37] LABS: ALBUMIN 3.3 g/dL (3.4-5.0); ANION GAP 14.8 (8-16); CARBON DIOXIDE 24.9 mmol/L (21-32); CREATININE 0.8 mg/dL (0.6-1.3); POTASSIUM 4.7 mmol/L (3.5-5.1); TOTAL BILIRUBIN 1.7 mg/dL (0.0-1.0)
--- NOTE | 2021-05-06 20:00 | NUR ---
RESTING COMFORTABLY WITH EYES CLOSED. VSS BIPAP CONTINUES WITH CURRENT SETTINGS
--- NOTE | 2021-05-06 20:00 | NUR ---
Omar ortega in [place] - 05/06/21 at 2234 by MEDJAMESK RESTING COMFORTABLY WITH EYES CLOSED. VSS BIPAP CONTINUES WITH CURRENT SETTINGS
[2021-05-06] MEDS ORDERED: ACETAMINOPHEN 325 MG TAB PO PRN (20:45)
[2021-05-06] MEDS ORDERED: POTASSIUM CHLORIDE 10 MEQ TABER PO PRN (20:45)
[2021-05-06] MEDS ORDERED: DOCUSATE SODIUM 100 MG GELCAP PO PRN (20:45)
[2021-05-06] MEDS ORDERED: SODIUM PHOS / POTASSIUM PHOS 1 PKT PDR PO PRN (20:45)
[2021-05-06] MEDS ORDERED: ALBUTEROL HFA MDI 90 MCG/ACTUATION 8 GM INH PRN (20:45)
[2021-05-06] MEDS ORDERED: MAGNESIUM OXIDE 400 MG TAB PO PRN (20:45)
[2021-05-06] MEDS ORDERED: HYDROcodone/APAP 5/325 MG 1 TAB TAB PO PRN (20:45)
[2021-05-06] MEDS ORDERED: MORPHINE SULFATE 2 MG/ML SYR IVP PRN (20:45)
[2021-05-06] MEDS ORDERED: ONDANSETRON 4 MG/2 ML VIAL IM/IVP PRN (20:45)
[2021-05-06 21:21] LABS: MAGNESIUM 1.7 mg/dL (1.8-2.4); PHOSPHORUS 3.4 mg/dL (2.5-4.9)
[2021-05-06 21:40] LABS: BARBITURATE, URINE NEGATIVE ng/ml (NEG <=200); BENZODIAZEPINE, URINE NEGATIVE ng/mL (NEG <=200); CANNABINOID, URINE NEGATIVE ng/mL (NEG <=50); COCAINE, URINE NEGATIVE ng/mL (NEG <=300); OPIATE, URINE NEGATIVE ng/mL (NEG <=2000); PHENCYCLIDINE SCREEN,URINE NEGATIVE ng/mL (NEG <=25)
--- NOTE | 2021-05-06 22:00 | NUR ---
RESTING QUIETLY ON BIPAP. HAS BEEN VOIDING PER URINAL
[2021-05-06 23:10] VITALS: BP 134/88
--- NOTE | 2021-05-07 02:00 | NUR ---
RESTING QUIETLY WITH EYES CLOSED. BI=PAP CONTINUES
[2021-05-07 03:15] VITALS: BP 96/57
--- NOTE | 2021-05-07 06:00 | NUR ---
CONDOM CATH PLACED. AWAKE AND CONSENTED TO CATH. DOES NOT WANT TO CHANGE AT THIS TIME.
[2021-05-07 06:32] LABS: BASOPHILS # (AUTO) 0.1 K/uL (0.00-0.22); BASOPHILS % (AUTO) 0.8 % (0.0-2.0); HEMOGLOBIN 13.1 g/dL (12.0-18.0); LYMPHOCYTES # (AUTO) 0.5 K/uL (2.0-11.5); LYMPHOCYTES % (AUTO) 7.5 % (20.5-51.1); MEAN CORPUSCULAR HEMOGLOBIN 25 pg (27-31); MEAN CORPUSCULAR HGB CONC 32 g/dL (33-37); MEAN CORPUSCULAR VOLUME 78.1 fL (80-94); MONOCYTES # (AUTO) 0.2 K/uL (0.8-1.0); MONOCYTES % (AUTO) 3.1 % (1.7-9.3); NEUTROPHILS # (AUTO) 6.1 K/uL (1.8-7.7); NEUTROPHILS % (AUTO) 88.6 % (42.2-75.2); PLATELET COUNT (AUTO) 196 K/uL (140-450); RED BLOOD CELL COUNT(AUTO) 5.26 MIL/uL (4.20-6.10); RED CELL DISTRIBUTION WIDTH 18.5 % (11.6-13.7); WHITE BLOOD COUNT (AUTO) 6.8 K/uL (4.8-10.8)
--- NOTE | 2021-05-07 07:15 | NUR ---
Report and continuation of care received from LALA Monroy.
--- NOTE | 2021-05-07 07:20 | NUR ---
Patient sitting upright with both eyes closed in position of comfort with BiPAP and residential monitor in place. SpO2 99% on BiPAP settings. Bed locked in lowest position, side rails x 2. Condom catheter remains in place.
[2021-05-07 07:48] LABS: ANION GAP 13.3 (8-16); CARBON DIOXIDE 26.7 mmol/L (21-32); CREATININE 0.9 mg/dL (0.6-1.3); TOTAL BILIRUBIN 1.2 mg/dL (0.0-1.0)
[2021-05-07 08:40] VITALS: BP 121/89
--- NOTE | 2021-05-07 08:45 | NUR ---
RT at bedside
--- NOTE | 2021-05-07 09:15 | NUR ---
Patient resting in high-fowlers in position of comfort. BiPAP removed for 0900 medication administration; patient tolerated mask removal well. Bed locked in lowest position, side rails x 2.
[2021-05-07] MEDS: ASPIRIN 81 MG TAB.CHEW PO SCH (09:41)
[2021-05-07] MEDS: FUROSEMIDE 40 MG/4 ML VIAL IVP SCH (09:41)
[2021-05-07] MEDS: LORATADINE 10 MG TAB PO SCH (09:41)
[2021-05-07] MEDS: ATORVASTATIN 20 MG TAB PO SCH (09:41)
[2021-05-07] MEDS: PANTOPRAZOLE 40 MG TABEC PO SCH (09:41)
[2021-05-07] MEDS: METOPROLOL SUCCINATE 50 MG TABER PO SCH (09:42)
[2021-05-07] MEDS: lisinopriL 10 MG TAB PO SCH (09:42)
--- NOTE | 2021-05-07 11:30 | NUR ---
Patient assisted with monica-care; pt with one bowel movement. New gown, chucks applied. Pt cleanse with wipes and bath. No wounds noted to sacral; wounds noted to bilateral LE, photos taken and attached to chart.
--- NOTE | 2021-05-07 11:30 | NUR ---
WOUND PHOTOS TAKEN; BILATERAL LOWER EXTREMITY WOUNDS PACKED WITH NON-ADHERENT PAD AND WOUND DRESSING APPLIED.
--- NOTE | 2021-05-07 12:04 | NUR ---
Patient requesting food and states pain at this time. PRN orders to be given. Remains on BiPAP; SpO2 99%. Bed locked in lowest position, side rails x 2.
--- NOTE | 2021-05-07 12:10 | NUR ---
STABLE RESTING WELL GOOD CHEST RISE
--- NOTE | 2021-05-07 12:14 | NUR ---
REMOVED FROM BIPAP TO MASK FOR LUNCH TRAY PLACED ON SUPPLEMENTAL OXYGEN AT 6 LPM VIA NC BY LALA STILES
--- NOTE | 2021-05-07 12:15 | NUR ---
Patient tolerating 6L by NC well. Denies SOB, chest pain.
--- NOTE | 2021-05-07 12:18 | NUR ---
RT at bedside; placed patient onto 6L by NC for lunch mealtray. Patient completing meal at this time; SpO2 96% on 6L via NC.
--- NOTE | 2021-05-07 12:29 | NUR ---
Pt completed 90% of lunch mealtray. All pt needs met.
--- NOTE | 2021-05-07 15:30 | NUR ---
Omar ortega in [facility] - 05/07/21 at [address] Coleman is evaluating patient at bedside.
--- NOTE | 2021-05-07 15:30 | NUR ---
Note jordan in [facility] - 05/07/21 at 1919 by LUIS ARMANDO Patient SpO2 90%; Dr. Coleman at bedside made aware; verbal order received for chest x-ray. Addendum: 05/07/21 at 1614 by LUIS ARMANDO Amendment jordan in [facility] - 05/07/21 at 1919 by LUIS ARMANDO Pt denies SOB, chest pain, difficulty breathing; denies smoker hx.
--- NOTE | 2021-05-07 16:01 | NUR ---
PATIENT HAS BEEN SCREENED AND CATEGORIZED MODERATE NUTRITION RISK. PATIENT WILL BE SEEN WITHIN 3-5 DAYS OF ADMISSION. LEESA ESPINOSA RD
--- NOTE | 2021-05-07 20:00 | NUR ---
AWAKE, REQUESTINGFOOD. COFFEE AND SANDWICH GIVWN
--- NOTE | 2021-05-08 | NUR ---
RESTING QUIETLY WITH EYES CLOSED. RESPIRATIONS REGULAR AND UNLABORED
[2021-05-08] MEDS ORDERED: ALBUTEROL SULFATE/IPRATROPIU 3 ML SOL IH PRN (01:25)
--- NOTE | 2021-05-08 04:46 | NUR ---
AWAKE. SANDWICH AND JUICE GIVEN
[2021-05-08 07:40] LABS: BASOPHILS # (AUTO) 0.1 K/uL (0.00-0.22); BASOPHILS % (AUTO) 0.9 % (0.0-2.0); EOSINOPHILS # (AUTO) 0.1 K/uL (0-0.4); EOSINOPHILS % (AUTO) 0.7 % (0.0-4.0); HEMATOCRIT 40.1 % (36-52); HEMOGLOBIN 12.5 g/dL (12.0-18.0); LYMPHOCYTES # (AUTO) 1.1 K/uL (2.0-11.5); LYMPHOCYTES % (AUTO) 8.6 % (20.5-51.1); MEAN CORPUSCULAR HEMOGLOBIN 25 pg (27-31); MEAN CORPUSCULAR HGB CONC 31 g/dL (33-37); MEAN CORPUSCULAR VOLUME 78.5 fL (80-94); MONOCYTES # (AUTO) 1.3 K/uL (0.8-1.0); MONOCYTES % (AUTO) 10.3 % (1.7-9.3); NEUTROPHILS # (AUTO) 10.2 K/uL (1.8-7.7); NEUTROPHILS % (AUTO) 79.5 % (42.2-75.2); PLATELET COUNT (AUTO) 232 K/uL (140-450); RED BLOOD CELL COUNT(AUTO) 5.11 MIL/uL (4.20-6.10); RED CELL DISTRIBUTION WIDTH 18.5 % (11.6-13.7); WHITE BLOOD COUNT (AUTO) 12.8 K/uL (4.8-10.8)
[2021-05-08 08:05] LABS: ALBUMIN 2.8 g/dL (3.4-5.0); ANION GAP 10.2 (8-16); CARBON DIOXIDE 30.9 mmol/L (21-32); POTASSIUM 5.1 mmol/L (3.5-5.1); TOTAL BILIRUBIN 0.6 mg/dL (0.0-1.0)
--- NOTE | 2021-05-08 08:30 | NUR ---
RECEIVED REPORT FROM LALA DELA CRUZ, ASSUMED CARE AT THIS TIME.
--- NOTE | 2021-05-08 08:52 | NUR ---
Patient will be admitted to care of DR. SAN. Admited to TELE. Will go to room 112A. Belongings list completed. Report to
--- NOTE | 2021-05-08 08:52 | NUR ---
RECEIVED REPORT FROM ED NURSE FOR CONTINUITY OF CARE.
--- NOTE | 2021-05-08 08:52 | NUR ---
Note jordan in [facility] - 05/08/21 at 0919 by MP Patient will be admitted to care of [facility]. Admited to TELE. Will go to room 112A. Belongings list completed. Report to FAB.
[2021-05-08] MEDS: lisinopriL 10 MG TAB PO SCH (09:00)
[2021-05-08] MEDS: METOPROLOL SUCCINATE 50 MG TABER PO SCH (09:00)
--- NOTE | 2021-05-08 09:15 | NUR ---
PATIENT ARRIVED IN [facility] BED 112A. NO S/S OF DISTRESS. CALL LIGHT IN REACH. ALL SAFETY MEASURES IN PLACE
[2021-05-08] MEDS: ASPIRIN 81 MG TAB.CHEW PO SCH (09:26)
[2021-05-08] MEDS: PANTOPRAZOLE 40 MG TABEC PO SCH (09:26)
[2021-05-08] MEDS: LORATADINE 10 MG TAB PO SCH (09:27)
[2021-05-08] MEDS: FUROSEMIDE 40 MG/4 ML VIAL IVP SCH (09:27)
[2021-05-08] MEDS: ATORVASTATIN 20 MG TAB PO SCH (09:27)
[2021-05-08] MEDS: ALBUTEROL SULFATE/IPRATROPIU 3 ML SOL IH SCH ×2 (10:15→16:46)
--- NOTE | 2021-05-08 10:43 | NUR ---
PLACED PT ON ROOM AIR FOR WEANING PROCESS - PT AWAKE ALERT AND HAVING NO SOB NOTED - PT ABLE TO TOLERATE WITH OXYGEN BEING OFF - WATCHING PHONE - ASKING FOR FOOD.
--- NOTE | 2021-05-08 11:17 | NUR ---
WOUND CARE EVALUATION NOTE: WOUND ASSESSMENT DONE WITH THIS 51 Y/O PT. AAX4. UPON ARRIVAL PT. IS COUGHING NON-PRODUCTIVE, NO SOB BUT REQUEST O2, PRIMARY RN NOTIFIED. -RLE CALF CELLULITIS, FULL THICKNESS SKIN LOSS 5X9X0.3CM, IRREGULAR SHAPE, WOUND BED 80% GRANULATION TISSUE, 20% SCATTERED SOFT YELLOW SLOUGH TISSUE. MODERATE AMOUNT SEROUS DRAINAGE, NO ODOR, WOUND EDGE FLAT AND ATTACH,BETO WOUND SKIN DRY SCALY SKIN, SWELLING WITH DRY OLD HEALED SCARS PAIN 0/10. -LLE CALF CELLULITIS, FULL THICKNESS SKIN LOSS 11X5X0.3CM, IRREGULAR SHAPE, WOUND BED 30% GRANULATION TISSUE, 70% SOFT YELLOW SLOUGH TISSUE. MODERATE AMOUNT SEROUS DRAINAGE, NO ODOR, WOUND EDGE FLAT AND ATTACH,BETO WOUND SKIN DRY SCALY SKIN, DRY OLD HEALED SCARS PAIN 0/10. POC DISCUSSED WITH PT. PT. VERBALIZES UNDERSTANDING. POC DISCUSSED WITH PRIMARY RN. RECOMMENDATIONS: -LLE AND RLE CALF WOUNDS CLEANSE WITH WOUND CARE SOLUTION, PAT DRY, APPLY XEROFORM DRESSING, COVER WITH DRY DRY DRESSING, SECURE WITH TAPE 3X/WEEK ON MWF AND PRN IF SOILING.
[2021-05-08 12:00] VITALS: BP 123/81
[2021-05-08] MEDS ORDERED: LORA10TA19 PO (12:06)
[2021-05-08] MEDS ORDERED: ASPI81CT95 PO (12:06)
[2021-05-08] MEDS ORDERED: METO50TE2 PO (12:06)
[2021-05-08] MEDS ORDERED: LISI10TA30 PO (12:06)
[2021-05-08] MEDS ORDERED: FURO-570 PO (12:06)
[2021-05-08] MEDS ORDERED: ATOR20TA40 PO (12:06)
[2021-05-08] MEDS ORDERED: ALBU0.0912 IH (12:07)
--- NOTE | 2021-05-08 12:34 | NUR ---
PT WEANED OFF OF 02. PT ON RA SATURATION 94%. NO S/S OF DISTRESS. CALL LIGHT IN REACH. ALL SAFETY MEASURES IN PLACE
[2021-05-08] MEDS ORDERED: NON ADHERENT DRESSING TP SCH (13:00)
[2021-05-08] MEDS ORDERED: methylPREDNISolone SS 125 MG/2 ML VIAL IVP SCH (13:30)
--- NOTE | 2021-05-08 15:53 | NUR ---
PHYSICAL THERAPY EVALUATION WAS ORDERED, PT NOTIFIED. SPOKE TO SOLANGE ROSS, IF UNAVAILABLE TODAY SHE WILL SEE PT TOMORROW AM
[2021-05-08 16:00] VITALS: BP 98/72
[2021-05-08 16:46] LABS: BASOPHILS # (AUTO) 0.1 K/uL (0.00-0.22); BASOPHILS % (AUTO) 0.9 % (0.0-2.0); EOSINOPHILS # (AUTO) 0.1 K/uL (0-0.4); EOSINOPHILS % (AUTO) 0.9 % (0.0-4.0); HEMOGLOBIN 12.7 g/dL (12.0-18.0); LYMPHOCYTES # (AUTO) 0.4 K/uL (2.0-11.5); LYMPHOCYTES % (AUTO) 3.7 % (20.5-51.1); MEAN CORPUSCULAR HEMOGLOBIN 25 pg (27-31); MEAN CORPUSCULAR HGB CONC 32 g/dL (33-37); MEAN CORPUSCULAR VOLUME 78.2 fL (80-94); MONOCYTES # (AUTO) 0.4 K/uL (0.8-1.0); MONOCYTES % (AUTO) 4.1 % (1.7-9.3); NEUTROPHILS # (AUTO) 8.9 K/uL (1.8-7.7); NEUTROPHILS % (AUTO) 90.4 % (42.2-75.2); PLATELET COUNT (AUTO) 224 K/uL (140-450); RED BLOOD CELL COUNT(AUTO) 5.12 MIL/uL (4.20-6.10); WHITE BLOOD COUNT (AUTO) 9.8 K/uL (4.8-10.8)
--- NOTE | 2021-05-08 18:08 | NUR ---
PT TRANSFERRED TO MED-SURG. TELE WAS REMOVED. PT ON RA SAT 95%. NO S/S OF DISTRESS. CALL LIGHT IN REACH. ALL SAFETY MEASURES IN PLACE
--- NOTE | 2021-05-08 19:33 | NUR ---
ENDORSED PT TO VP GLOBAL MARKETING SOLUTIONS NURSE FOR CONTINUITY OF CARE
--- NOTE | 2021-05-08 19:35 | NUR ---
RECEIVED PT BEDSIDE REPORT FOR CONTINUITY OF CARE.
[2021-05-08 20:00] VITALS: BP 129/85
[2021-05-09 04:00] VITALS: BP 143/98
[2021-05-09] MEDS: methylPREDNISolone SS 125 MG/2 ML VIAL IVP SCH ×3 (04:23→13:35)
--- NOTE | 2021-05-09 07:30 | NUR ---
RECEIVED REPORT FROM LATENT FINGERPRINT EXAMINER NURSE FOR CONTINUITY OF CARE. PT IN BED ASLEEP. BREATHING SYMMETRICAL. CALL LIGHT PLACED WITHIN EASY REACH. ALL SAFETY MEASURES IN PLACE.
[2021-05-09 07:47] LABS: ALBUMIN 2.8 g/dL (3.4-5.0); ANION GAP 7.4 (8-16); CARBON DIOXIDE 33.4 mmol/L (21-32); CREATININE 0.7 mg/dL (0.6-1.3); POTASSIUM 4.8 mmol/L (3.5-5.1); TOTAL BILIRUBIN 0.5 mg/dL (0.0-1.0)
[2021-05-09 08:09] LABS: BASOPHILS % (AUTO) 0.1 % (0.0-2.0); HEMATOCRIT 39.1 % (36-52); HEMOGLOBIN 12.3 g/dL (12.0-18.0); LYMPHOCYTES # (AUTO) 0.4 K/uL (2.0-11.5); LYMPHOCYTES % (AUTO) 5.2 % (20.5-51.1); MEAN CORPUSCULAR HEMOGLOBIN 25 pg (27-31); MEAN CORPUSCULAR HGB CONC 32 g/dL (33-37); MEAN CORPUSCULAR VOLUME 78.5 fL (80-94); MONOCYTES # (AUTO) 0.1 K/uL (0.8-1.0); MONOCYTES % (AUTO) 1.7 % (1.7-9.3); NEUTROPHILS # (AUTO) 7.3 K/uL (1.8-7.7); PLATELET COUNT (AUTO) 221 K/uL (140-450); RED BLOOD CELL COUNT(AUTO) 4.98 MIL/uL (4.20-6.10); RED CELL DISTRIBUTION WIDTH 18.6 % (11.6-13.7); WHITE BLOOD COUNT (AUTO) 7.9 K/uL (4.8-10.8)
[2021-05-09] MEDS: ALBUTEROL SULFATE/IPRATROPIU 3 ML SOL IH SCH ×2 (08:30→10:48)
[2021-05-09] MEDS: LORATADINE 10 MG TAB PO SCH (08:56)
[2021-05-09] MEDS: ATORVASTATIN 20 MG TAB PO SCH (08:56)
[2021-05-09] MEDS: ASPIRIN 81 MG TAB.CHEW PO SCH (08:56)
[2021-05-09] MEDS: PANTOPRAZOLE 40 MG TABEC PO SCH (08:57)
[2021-05-09] MEDS: METOPROLOL SUCCINATE 50 MG TABER PO SCH (08:58)
[2021-05-09] MEDS: lisinopriL 10 MG TAB PO SCH (08:59)
[2021-05-09] MEDS: FUROSEMIDE 40 MG/4 ML VIAL IVP SCH (09:00)
--- NOTE | 2021-05-09 09:10 | NUR ---
SCHEDULED AM MEDICATIONS GIVEN PER MD ORDER. PT IN BED AWAKE. NOTED WITH NON PRODUCTIVE INTERMITTENT EPISODES OF COUGH. NO SOB NOTED. CALL LIGHT WITHIN REACH. ALL SAFETY MEASURES IN PLACE
--- NOTE | 2021-05-09 10:56 | NUR ---
PT HAS NEW ORDER FOR DISCHARGE. PT IS STABLE. NO S/S OF DISTRESS. PT SAT 97% ON RA. BREATHING SYMMETRICAL. ALL SAFETY MEASURES IN PLACE. CALL LIGHT IN REACH
[2021-05-09 11:48] VITALS: BP 125/87
--- NOTE | 2021-05-09 12:03 | NUR ---
PROVIDED PT WITH EXTRA MEALS TO GO. CLOTHING VIA SECURITY. PT STABLE. NO S/S OF DISTRESS. CALL LIGHT IN REACH. ALL SAFETY MEASURES IN PLACE
--- NOTE | 2021-05-09 14:13 | NUR ---
PT DISCHARGED, WHEELED OUT, GIVEN MEAL FOR TO GO, BUS PASS AND WALKER. PT IS ALERT, VERBAL. IN STABLE CONDITION. BREATHING SYMMETRICAL. IV REMOVED WITH CANNULA INTACT. PT BELONGINGS IN POSSESSION. DENIES PAIN OR DISCOMFORT AT THIS TIME.
[2021-05-09] MEDS ORDERED: methylPREDNISolone SS 40 MG/ML VIAL IVP SCH (21:00)
[2021-05-10] MEDS ORDERED: PRED20TA5 PO (02:12)
== END 2021-05-09 14:05 | disposition home or self-care (01) | DRG 194 ==
LOC: MED 17:37 → MTU 20:49
PROVIDERS: ADMIT Hospitalist; ATTEND Hospitalist
PROC: 5A09357 Assistance with Respiratory Ventilation, Less than 24 Consecutive Hours, Continuous Positive Airway Pressure (ICD-10-PCS; principal; 2021-05-06)
DX: I11.0 Hypertensive heart disease with heart failure (principal); J96.01 Acute respiratory failure with hypoxia; G92.9 Unspecified toxic encephalopathy; E86.0 Dehydration; E44.1 Mild protein-calorie malnutrition; J44.1 Chronic obstructive pulmonary disease with (acute) exacerbation; Z20.822 Contact with and (suspected) exposure to COVID-19; I50.43 Acute on chronic combined systolic (congestive) and diastolic (congestive) heart failure; F12.90 Cannabis use, unspecified, uncomplicated; E78.5 Hyperlipidemia, unspecified; I73.9 Peripheral vascular disease, unspecified; L30.9 Dermatitis, unspecified; E11.51 Type 2 diabetes mellitus with diabetic peripheral angiopathy without gangrene; B19.20 Unspecified viral hepatitis C without hepatic coma; E80.6 Other disorders of bilirubin metabolism; E83.42 Hypomagnesemia; Z59.00 Homelessness unspecified; Z91.14 Patient's other noncompliance with medication regimen; Z68.31 Body mass index [BMI] 31.0-31.9, adult
CPT/HCPCS: 36415; 36600; 71045; 80053; 80305; 81003; 82140; 82803; 83605; 83735; 83880; 84100; 84484; 85025; 85730; 87040; 87081; 87086; 93005; 94640; 94660; 96374; 96375; 97163-GP; 99285; J1644; J1940; J2930; Q0092

== ENCOUNTER 2021-05-11 06:44 | Inpatient (IN) | payer MEDICAID, SELFPAY ==
[~2021-05-11] VITALS: Ht 182.9 cm; Wt 108.9 kg
[~2021-05-11 06:44] MED LIST changes: +ALBU0.0912 IH; -ALBU0.0912 INH; -ASPI-1822 PO; +ASPI81CT95 PO; -CEPH500C16 PO; -METO50TE PO; +METO50TE2 PO; -NAPR-54 PO; +PRED20TA5 PO
[2021-05-11 06:50] VITALS: BP 153/84
--- NOTE | 2021-05-11 06:55 | NUR ---
PT W/C ASSISTED TO TENT, PT PLACED ON 4L N/C PER DR IRWIN
[2021-05-11] MEDS ORDERED: ALBUTEROL SULFATE/IPRATROPIU 3 ML SOL IH ONE (07:10)
[2021-05-11 07:54] LABS: HEMATOCRIT 39.4 % (36-52); HEMOGLOBIN 12.6 g/dL (12.0-18.0); MEAN CORPUSCULAR HEMOGLOBIN 24 pg (27-31); MEAN CORPUSCULAR HGB CONC 32 g/dL (33-37); MEAN CORPUSCULAR VOLUME 75.9 fL (80-94); PLATELET COUNT (AUTO) 191 K/uL (140-450); RED BLOOD CELL COUNT(AUTO) 5.19 MIL/uL (4.20-6.10); RED CELL DISTRIBUTION WIDTH 18.7 % (11.6-13.7); WHITE BLOOD COUNT (AUTO) 21.1 K/uL (4.8-10.8)
--- NOTE | 2021-05-11 08:09 | NUR ---
LIZANDRO SWAB COLLECTED AND HANDED TO MEASURING MACHINE TENDER
[2021-05-11 08:18] LABS: ANION GAP 12.4 (8-16); CARBON DIOXIDE 29.2 mmol/L (21-32); CREATININE 0.9 mg/dL (0.6-1.3); POTASSIUM 3.6 mmol/L (3.5-5.1)
[2021-05-11] MEDS ORDERED: HYDROcodone/APAP 5/325 MG 1 TAB TAB PO ONE (08:30)
--- NOTE | 2021-05-11 09:17 | NUR ---
51/M BIBA FOR C/O SOB AND BILATERAL HIP PAIN. PATIENT RECENTLY ADMITTED TO OUR FACILITY FOR CHF/COPD. STATES HE WAS DX AND GIVEN MULTIPLE RX THAT HE WAS ABLE TO FILL BUT STATES DID NOT TAKE HIS MEDICATIONS PRIOR TO ARRIVAL TO ED. PATIENT ALSO C/O CHRONIC BILATERAL HIP PAIN THAT HE STATES IS WORSENING, PATIENT STATES "I FEEL LIKE MY HIPS ARE DISLOCATING." PATIENT REPORTS 10/10 SHARP THROBBING PAIN THAT WORSENS WITH MOVEMENT. PATIENT STATES HE NORMALLY AMBULATES WITH A WALKER BUT STATES HE HAS BEEN UNABLE TO D/T PAIN. PATIENT PRESENTS WITH COUGH FOR ONE WEEK WITH NO IMPROVEMENT, DENIES CP, GI OR URINARY ISSUES. PATIENT PLACED ON 4L NASAL CANULA, DR. IRWIN AWARE OF PATIENT STATUS.
[2021-05-11] MEDS ORDERED: FUROSEMIDE 40 MG/4 ML VIAL IVP ONE ×2 (10:10→12:16)
[2021-05-11] MEDS ORDERED: ONDANSETRON 4 MG/2 ML VIAL IVP PRN (10:40)
[2021-05-11] MEDS ORDERED: SODIUM PHOS / POTASSIUM PHOS 1 PKT PDR PO PRN (10:40)
[2021-05-11] MEDS ORDERED: MAG SULF 2000 MG/WATER PREMIX 50 ML IV PRN (10:40)
[2021-05-11] MEDS ORDERED: ZOLPIDEM 5 MG TAB PO PRN (10:40)
[2021-05-11] MEDS ORDERED: POTASSIUM CHLORIDE 10 MEQ TABER PO PRN (10:40)
[2021-05-11] MEDS ORDERED: DOCUSATE SODIUM 100 MG GELCAP PO PRN (10:40)
--- NOTE | 2021-05-11 12:00 | NUR ---
PT MOVED TO BED 02
[2021-05-11 12:26] LABS: PROTHROMBIN TIME 12.9 secs (10.8-13.4)
[2021-05-11 12:34] LABS: PHOSPHORUS 3.3 mg/dL (2.5-4.9); THYROID STIMULATING HORMONE 1.07 uIU/mL (0.34-3.74)
[2021-05-11 13:28] LABS: LYMPHOCYTES % (MANUAL) 8 % (20-46); MONOCYTES % (MANUAL) 10 % (5-12)
[2021-05-11 13:49] LABS: APPEARANCE,URINE CLEAR (CLEAR); BILIRUBIN,URINE NEGATIVE (NEGATIVE); BLOOD, URINE TRACE-I (NEGATIVE); COLOR,URINE DARK YELLOW (YELLOW); LEUKOCYTE ESTERASE ,URINE NEGATIVE (NEGATIVE); NITRITE, URINE NEGATIVE (NEGATIVE); UGLUCOSE NEGATIVE (NEGATIVE)
--- NOTE | 2021-05-11 14:00 | NUR ---
URINE OUTPUT 1000 ML
[2021-05-11 14:10] LABS: BARBITURATE, URINE NEGATIVE ng/ml (NEG <=200); BENZODIAZEPINE, URINE NEGATIVE ng/mL (NEG <=200); CANNABINOID, URINE NEGATIVE ng/mL (NEG <=50); COCAINE, URINE NEGATIVE ng/mL (NEG <=300); OPIATE, URINE POSITIVE ng/mL (NEG <=2000); PHENCYCLIDINE SCREEN,URINE NEGATIVE ng/mL (NEG <=25)
[2021-05-11] MEDS: NACL 0.9% 1,000 ML IV SCH (14:15)
[2021-05-11] MEDS: FUROSEMIDE 40 MG/4 ML VIAL IVP SCH (17:18)
--- NOTE | 2021-05-11 17:53 | NUR ---
PT ON 4 L NASAL CANNULA O2 SATURATION 94. RESPIRATIONS EVEN AND UNLABORED. CHEST RISE IS SYMMETRICAL. WILL CONTINUE TO MONITOR.
--- NOTE | 2021-05-11 18:00 | NUR ---
1000 ML URINE OUTPUT
--- NOTE | 2021-05-11 18:15 | NUR ---
PT EATING DINNER TRAY
--- NOTE | 2021-05-11 19:23 | NUR ---
Pt report given to WANDA NICOLAS. Transfer of care at this time.
[2021-05-11] MEDS: carvediloL 3.125 MG TAB PO SCH (21:38)
--- NOTE | 2021-05-11 22:50 | NUR ---
PT C/P ABD PAIN. 02/03. ALL VSS. HR 108. ASKED FOR NORCO SPECIFICALLY
[2021-05-11] MEDS: HYDROcodone/APAP 5/325 MG 1 TAB TAB PO PRN (23:02)
--- NOTE | 2021-05-12 02:40 | NUR ---
PT WAS SITING IN HIS OWN URINE. URINE WAS ALL OVER HIS LEG WOUNDS. CUT OFF URINE SOAKED PANTS. NEW GOWN, NEW SHEETS, NEW CHUCKS PLACED DOWN. PT WAS NOT ABLE TO TOLERATE GETTING BACK IN BED SO CORRIE MEDICATED W/ MORPHINE TO EASE PAIN. FED PATIENT MEAL. ALL NEEDS MET AT THIS TIME.
[2021-05-12] MEDS: MORPHINE SULFATE 2 MG/ML SYR IVP PRN ×2 (02:53→22:31)
--- NOTE | 2021-05-12 04:49 | NUR ---
PT C/O PAIN 02/03. PT WAS ALSO THRISTY. PROVIDED PT A PITCHER OF [place]
[2021-05-12] MEDS: HYDROcodone/APAP 5/325 MG 1 TAB TAB PO PRN ×2 (04:51→17:24)
--- NOTE | 2021-05-12 07:30 | NUR ---
REPORT RECEIVED FROM WANDA NICOLAS FOR CONTINUITY OF CARE. A&0X4. IV SITE LT HAND 20G, INFUSING NS 50ML/HR. SKIN NON INTACT. SAFETY PRECAUTIONS IN PLACE. WILL CONTINUE TO MONITOR.
--- NOTE | 2021-05-12 07:57 | NUR ---
Pt report given to jonah. kirna. Transfer of care at this time.
--- NOTE | 2021-05-12 08:24 | NUR ---
DR DALAL AT BEDSIDE EXAMINING PT
--- NOTE | 2021-05-12 08:45 | NUR ---
DR CAMPA AT BEDSIDE EXAMINING PT
[2021-05-12] MEDS ORDERED: ASPIRIN 325 MG TABEC PO SCH (09:00)
[2021-05-12] MEDS: carvediloL 3.125 MG TAB PO SCH (09:16)
[2021-05-12] MEDS: ECOTRIN 81 MG TABEC PO SCH (09:16)
[2021-05-12] MEDS: predniSONE 20 MG TAB PO SCH (09:17)
[2021-05-12] MEDS: lisinopriL 5 MG TAB PO SCH (09:17)
[2021-05-12] MEDS: FUROSEMIDE 40 MG/4 ML VIAL IVP SCH ×3 (09:18→21:25)
[2021-05-12] MEDS: NACL 0.9% 1,000 ML IV SCH (09:18)
--- NOTE | 2021-05-12 09:27 | NUR ---
PT EATING BREAKFAST TRAY
--- NOTE | 2021-05-12 09:27 | NUR ---
200 ML URINE OUTPUT
[2021-05-12 10:14] LABS: HEMATOCRIT 39.9 % (36-52); HEMOGLOBIN 12.5 g/dL (12.0-18.0); MEAN CORPUSCULAR HEMOGLOBIN 24 pg (27-31); MEAN CORPUSCULAR HGB CONC 31 g/dL (33-37); MEAN CORPUSCULAR VOLUME 77.2 fL (80-94); PLATELET COUNT (AUTO) 151 K/uL (140-450); RED BLOOD CELL COUNT(AUTO) 5.17 MIL/uL (4.20-6.10); RED CELL DISTRIBUTION WIDTH 18.7 % (11.6-13.7); WHITE BLOOD COUNT (AUTO) 20.2 K/uL (4.8-10.8)
[2021-05-12 10:22] LABS: ALBUMIN 2.4 g/dL (3.4-5.0); ANION GAP 8.8 (8-16); CARBON DIOXIDE 33.5 mmol/L (21-32); CREATININE 0.8 mg/dL (0.6-1.3); MAGNESIUM 1.8 mg/dL (1.8-2.4); POTASSIUM 3.3 mmol/L (3.5-5.1); TOTAL BILIRUBIN 0.8 mg/dL (0.0-1.0)
[2021-05-12 11:06] LABS: BASOPHILS % (MANUAL) 0 % (0-2); EOSINOPHILS % (MANUAL) 0 % (0-4); LYMPHOCYTES % (MANUAL) 4 % (20-46); MONOCYTES % (MANUAL) 8 % (5-12)
--- NOTE | 2021-05-12 12:00 | NUR ---
PT O2 SATURATION 88%. PLACED ON 10L NON REBREATHER
--- NOTE | 2021-05-12 15:14 | NUR ---
PT EATING LUNCH TRAY
--- NOTE | 2021-05-12 15:14 | NUR ---
URINE OUTPUT 600 ML
--- NOTE | 2021-05-12 15:54 | NUR ---
PATIENT PRESENTING WITH INCREASED WOB AT 24 BPM BREATH SOUNDS DIMINISHED BILATERAL INTERMITTENT SPONTANEOUS COUGHING CRM MARKETING ANALYST RECOMMENDATION HHN DUONEB Q4PRN FOR SOB/WHEEZE; SUPPLEMENTAL OXYGEN TO KEEP SATURATION GREATER THAN 90% PLACED ON 5 LPM VIA NC AT THIS TIME
[2021-05-12] MEDS ORDERED: ALBUTEROL SULFATE/IPRATROPIU 3 ML SOL IH ONE (15:56)
--- NOTE | 2021-05-12 15:58 | NUR ---
SATURATION PRE-HHN THERAPY 90% ON SUPPLEMENTAL OXYGEN AT 5 LPM VIA NC POST; HHN THERAPY SATURATION 98% TITRATED FIO2 TO 4 LPM DROP HAMMER SETTER UP TO MONITOR AND TITRATED FIO2 TOLERATED VALERIE/LALA NOTIFIED
[2021-05-12] MEDS: ALBUTEROL SULFATE/IPRATROPIU 3 ML SOL IH PRN (16:32)
--- NOTE | 2021-05-12 17:09 | NUR ---
Patient awake, resting in bed. Vital Signs within normal limits. Respirations even and unlabored. ON 4 L NASAL CANNULA. WILL CONTINUE TO MONITOR.
--- NOTE | 2021-05-12 19:32 | NUR ---
Pt report given to MARIANN REEVES. Transfer of care at this time.
--- NOTE | 2021-05-12 19:32 | NUR ---
PT REPORT RECEIVED FROM LALA PADILLA FOR CONTINUITY OF PT CARE AT THIS TIME.
--- NOTE | 2021-05-12 19:35 | NUR ---
PT LAYING SUPINE IN BED LOCKED IN LOWEST POSITION W X2 SIDERAILS UP FOR PT SAFETY. HOB ELEVATED. PT REPORT SOME SOB AT THIS TIME PT ON 4L NC W 95% O2 SAT, PT CONNECTED TO MONITOR TACHYCARDIC AT 106 BUT OTHERWISE VSS. PT RUNNING NS TO L HAND IV AT 50ML/HR. IV SITE PATENT. PT DENIES PAIN AT THIS TIME. NAD NOTED, WILL CONTINUE TO MONITOR.
[2021-05-12] MEDS ORDERED: PIPERACILLIN/TAZOBACTAM 3.375 GM VIAL IV ONE (21:04)
[2021-05-12] MEDS: PIPERACILLIN/TAZOBACTAM 3.375 GM in DEXTROSE 5% 50 ML IV SCH (21:18)
--- NOTE | 2021-05-12 21:26 | NUR ---
PT BP AT 108/66 PER MD OVERTON TO HOLD LASBig Super Search FOR TONIGHT.
--- NOTE | 2021-05-12 22:29 | NUR ---
PT W C/O 02/03 HIP PAIN. PT MEDICATED FOR PAIN.
--- NOTE | 2021-05-12 22:49 | NUR ---
PROVIDED PT W WATER AT THIS TIME.
--- NOTE | 2021-05-12 23:14 | NUR ---
PT APPEARS TO BE RESTING W EYES CLOSED IN SUPINE POSITION W HOB ELEVATED. BED LOCKED IN LOWEST POSITION W X2 SIDERAILS UP FOR PT SAFETY. PT TACHYCARDIC BUT OTHERWISE VSS. BREATHING EVEN AND UNLABORED. NAD NOTED, WILL CONTINUE TO MONITOR.
--- NOTE | 2021-05-13 01:21 | NUR ---
PT DC OWN IV "UNSURE HOW IT OCCURED". IV CATH INTACT. NEW IV PLACED, 20G R ARM.
[2021-05-13] MEDS: HYDROcodone/APAP 5/325 MG 1 TAB TAB PO PRN (01:26)
--- NOTE | 2021-05-13 01:27 | NUR ---
PT C/O ONGOING HIP PAIN .PT MEDICATED FOR PAIN.
--- NOTE | 2021-05-13 01:29 | NUR ---
PT ASSITED TO REPOSITION FOR COMFORT.
--- NOTE | 2021-05-13 03:35 | NUR ---
PT DC OWN IV AT THIS TIME REPORTS HE IS UNSURE OF HOW IT HAPPENED. IV CATH INTACT.
--- NOTE | 2021-05-13 03:43 | NUR ---
NEW IV ESTABLISHED TO R HAND 20 G.
[2021-05-13] MEDS: NACL 0.9% 1,000 ML IV SCH ×2 (03:46→22:14)
--- NOTE | 2021-05-13 05:11 | NUR ---
PT PARTIALLY PULLED OUT OWN IV, REPORTS HE WAS SLEEPING AND IT PULLED OUT. IV INFILTRATED, IV DC W IV CATH INTACT. PROVIDED W WARM BLABKET AROUND HAND.
[2021-05-13] MEDS: FUROSEMIDE 40 MG/4 ML VIAL IVP SCH ×3 (05:16→21:00)
[2021-05-13] MEDS ORDERED: PIPERACILLIN/TAZOBACTAM 3.375 GM VIAL IV ONE ×2 (05:32→22:20)
[2021-05-13] MEDS: PIPERACILLIN/TAZOBACTAM 3.375 GM in DEXTROSE 5% 50 ML IV SCH ×3 (06:04→22:33)
--- NOTE | 2021-05-13 07:23 | NUR ---
Pt report given to LALA Delgadillo. Transfer of care at this time.
--- NOTE | 2021-05-13 07:30 | NUR ---
RECEIVED PT IN [facility] AOX4 APPEARS LETHARGIC. INONTINENT OF STOOL CLEANED AND REPOSITOINED. PT C/O CHRONIC HIP PAIN. BLE SWELLING +3 EDEMA. ON 2L NC SATURATION 95%. PT SOB WITH EXERTION, BECAME MODERATELY SOB WHILE TURNING SIDE TO SIDE IN BED WHILE NEEDING ASSISTANCE. PT PLACED IN SEMI FOWLERS POSITION FOR COMFORT. IV PULLED OUT. NEW IV INSERTED TO RIGHT FA #[id number].
[2021-05-13 07:41] LABS: BASOPHILS # (AUTO) 0.3 K/uL (0.00-0.22); BASOPHILS % (AUTO) 1.2 % (0.0-2.0); EOSINOPHILS % (AUTO) 0.1 % (0.0-4.0); HEMOGLOBIN 12.1 g/dL (12.0-18.0); LYMPHOCYTES # (AUTO) 0.2 K/uL (2.0-11.5); LYMPHOCYTES % (AUTO) 0.9 % (20.5-51.1); MEAN CORPUSCULAR HEMOGLOBIN 24 pg (27-31); MEAN CORPUSCULAR HGB CONC 32 g/dL (33-37); MEAN CORPUSCULAR VOLUME 76.4 fL (80-94); MONOCYTES # (AUTO) 1.1 K/uL (0.8-1.0); MONOCYTES % (AUTO) 4.5 % (1.7-9.3); NEUTROPHILS # (AUTO) 22.2 K/uL (1.8-7.7); NEUTROPHILS % (AUTO) 93.3 % (42.2-75.2); PLATELET COUNT (AUTO) 127 K/uL (140-450); RED BLOOD CELL COUNT(AUTO) 4.97 MIL/uL (4.20-6.10); RED CELL DISTRIBUTION WIDTH 18.7 % (11.6-13.7); WHITE BLOOD COUNT (AUTO) 23.8 K/uL (4.8-10.8)
[2021-05-13 07:56] LABS: ALBUMIN 2.2 g/dL (3.4-5.0); ANION GAP 9.6 (8-16); CARBON DIOXIDE 33.8 mmol/L (21-32); CREATININE 1.1 mg/dL (0.6-1.3); MAGNESIUM 1.5 mg/dL (1.8-2.4); POTASSIUM 3.4 mmol/L (3.5-5.1)
--- NOTE | 2021-05-13 09:17 | NUR ---
PATIENT HAS BEEN SCREENED AND CATEGORIZED MODERATE NUTRITION RISK. PATIENT WILL BE SEEN WITHIN 3-5 DAYS OF ADMISSION. / LEESA ESPINOSA RD
[2021-05-13] MEDS: predniSONE 20 MG TAB PO SCH (10:24)
[2021-05-13] MEDS: ECOTRIN 81 MG TABEC PO SCH (10:24)
[2021-05-13] MEDS: lisinopriL 5 MG TAB PO SCH (10:25)
[2021-05-13] MEDS: ACETAMINOPHEN 325 MG TAB PO PRN (10:25)
--- NOTE | 2021-05-13 10:40 | NUR ---
PMX: COPD/CHF RECEIVED ON SUPPLEMENTAL OXYGEN AT 7 LPM VIA SIMPLE MASK SATURATION 100% PATIENT C/O SOB HHN PRN THERAPY GIVEN AT THIS TIME ENCOURAGED PATIENT FOR DEEP BREATHING AND COUGH DURING THERAPY POST HHN THERAPY PLACED ON SUPPLEMENTAL OXYGEN AT 3 LPM VIA NC SIMON/RN NOTIFIED TIRE GROOVER TO MONITOR AND TITRATE TOLERATED
[2021-05-13] MEDS: ALBUTEROL SULFATE/IPRATROPIU 3 ML SOL IH PRN (11:00)
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
[2021-05-13] MEDS: LORazepam 2 MG/ML VIAL IM/IVP PRN ×2 (11:36→15:13)
[2021-05-13] MEDS: MORPHINE SULFATE 2 MG/ML SYR IVP PRN (11:37)
[2021-05-13] MEDS ORDERED: INTUBATION KIT MC ONE (14:30)
[2021-05-13] MEDS ORDERED: NALOXONE PFS 2 MG/2 ML SYR IVP ONE ×2 (14:30→14:40)
--- NOTE | 2021-05-13 14:35 | NUR ---
PT FOUND TO BE ALTERED, DIAPHORETIC, TACHYPNEIC AND SHALLOW BREATHING [id number] 68% ON 2L PLACED ON NONRE BREATHER AND ALERTED DR MCKEON TO BEDSIDE.
[2021-05-13] MEDS ORDERED: NALOXONE PFS 2 MG/2 ML SYR ONE ×2 (14:37→14:41)
--- NOTE | 2021-05-13 14:40 | NUR ---
BS 114 [id number]: GIVEN 4 MG NARCAN WITH MINOR RESPONSE. PT OPENS EYES WITH COMMAND BUT NON VERBAL VERY LETHARGIC AND LABORED BREATHING,
--- NOTE | 2021-05-13 14:54 | NUR ---
PT INTUBATED 8.0/24 TEETH. +COLOR CHANGE BREATH SOUNDS IN ALL LOBES. PLACED ON VENT BY RT. OG TUBE PLACED.
--- NOTE | 2021-05-13 14:54 | NUR ---
PT INTUBATED WITH A 8.0 ETT SECURED @24 TEETH/GUM. ETT PLACEMENT CONFIRMED WITH CO2 COLOR CHANGE AND BILATERAL BREATH SOUNDS. CXR TO BE ORDERED.
[2021-05-13 15:07] VITALS: BP 91/60
--- NOTE | 2021-05-13 15:07 | NUR ---
PT PLACED ON VENT. SETTINGS AC 16, VT 500, PEEP 5 AND FIO2 100%. VENT ALARMS ON AND FUNCTIONING.
[2021-05-13] MEDS ORDERED: MIDAZOLAM MDV 50 MG in NACL 0.9% 40 ML IV PRN (15:10)
[2021-05-13] MEDS ORDERED: fentaNYL citrate 1 MG in NACL 0.9% 80 ML IV PRN (15:20)
--- NOTE | 2021-05-13 15:45 | NUR ---
RECEIVED CRITICAL RAD REPORTING- SMALL R PNEUMOTHROAX. DR OVERTON NOTIFIED. PAGED AND SPOKE WITH CHRISTOPHER DURAN. RECEIVED VERBAL ORDER FOR CHEST XRAY TONIGHT AT 8PM AND AGAIN IN THE MORNING
[2021-05-13] MEDS: MIDAZOLAM MDV 100 MG in NACL 0.9% 80 ML IV PRN (15:49)
[2021-05-13 17:06] VITALS: BP 101/65
--- NOTE | 2021-05-13 17:30 | NUR ---
PT TAKEN TO CT, DESATS TO 85 WHILE BAGGED BY RT.
[2021-05-13 17:59] VITALS: BP 91/60
--- NOTE | 2021-05-13 18:08 | NUR ---
PT BACK TO ROOM, PLACED ON VENT BY RT. PT DIAPHORETIC. REMAINS ON SEDATION. NEW IV INSERTED TO RIGHT AC #[id number].
--- NOTE | 2021-05-13 18:09 | NUR ---
REPORT GIVEN TO PRINT TRAFFIC MANAGER FOR CONTINUATION OF CARE
[2021-05-13] MEDS ORDERED: NOREPINEPHRINE 4 MG/4 ML VIAL IV ONE (18:31)
[2021-05-13] MEDS: fentaNYL citrate - 50mL vial 2.5 MG in NACL 0.9% 200 ML IV PRN (18:41)
--- NOTE | 2021-05-13 18:44 | NUR ---
LEVOPHED INFUSING PER ORDER.
--- NOTE | 2021-05-13 19:22 | NUR ---
BOB MCKEON ASSISTED TO PLACE CHEST TUBE AT THIS TIME. TIME OUT PERFORMED BEFORE PROCEDURE INITIATED. RIGHT SIDE CT PLACED AT THIS TIME TO SUCTION PER MD ORDER. aIR LEAK NOTED AFTER PLACEMENT. MD AWARE OF AIRLEAK. 200CC OF CLEAR PINK TINGED DRAINAGE AT THIS TIME. DRAINAGE DEVICE PLACED BELOW LEVEL OF INSERTION WITHOUT KINKS AND FLOWING INTO DEVICE.
--- NOTE | 2021-05-13 19:26 | NUR ---
PT UNAVAILABLE FOR VENT CHECK CHEST TUBE WAS PLACED AT THIS TIME.
--- NOTE | 2021-05-13 20:20 | NUR ---
Patient will be admitted to care of Wayne RIVERS. Admited to ICU. Will go to bed 5. Belongings list completed. Report to Calderon REEVES.
[2021-05-13 22:00] VITALS: BP 96/58
--- NOTE | 2021-05-13 23:00 | NUR ---
TRANSFERRED PT TO ICU RECEIVED PT WITH A 8.0mm ETT 25cm @ TEETH VENT SETTINGS AC/VC VT500, RR16, PEEP12, 100% WITH NO SIGNS OF RESPIRATORY DISTRESS SATING 91%. BS REVEALED CLEAR THROUGHOUT, SX SCANT WHITE THICK, ORAL CARE DONE, HOB ELEVATED, WILL CONTINUE TO MONITOR.
[2021-05-14] VITALS (23 sets, daily range): BP systolic 80–174; BP diastolic 47–88
[2021-05-14] MEDS ORDERED: NOREPINEPHRINE 4 MG/4 ML VIAL IV ONE (02:18)
[2021-05-14] MEDS: NOREPINEPHRINE 8 MG in DEXTROSE 5% 250 ML IV PRN ×4 (02:24→22:09)
[2021-05-14] MEDS: PIPERACILLIN/TAZOBACTAM 3.375 GM in DEXTROSE 5% 50 ML IV SCH ×3 (05:00→21:09)
[2021-05-14] MEDS: FUROSEMIDE 40 MG/4 ML VIAL IVP SCH ×2 (05:32→12:39)
[2021-05-14] MEDS ORDERED: MIDAZOLAM MDV 50 MG/10 ML VIAL IV ONE ×3 (06:11→06:38)
[2021-05-14 06:26] LABS: HEMATOCRIT 40.3 % (36-52); HEMOGLOBIN 12.5 g/dL (12.0-18.0); MEAN CORPUSCULAR HEMOGLOBIN 24 pg (27-31); MEAN CORPUSCULAR HGB CONC 31 g/dL (33-37); PLATELET COUNT (AUTO) 101 K/uL (140-450); RED BLOOD CELL COUNT(AUTO) 5.23 MIL/uL (4.20-6.10)
--- NOTE | 2021-05-14 08:05 | NUR ---
RECEIVED ON A DOZIER VENTILATOR ([employer] #[id number]) PLUGGED INTO RED OUTLET TOLERATING WELL WITHOUT ADVERSE REACTIONS NOTED TO AN ENDOTRACHEAL TUBE #8.0 SECURED WITH AN ANCHOR FAST AT 25cm TEETH/GUM LINE CUFF PRESSURE CHECKED NOTED AMBU BAG AT BEDSIDE STABLE GOOD CHEST RISE AIRWAY PATENT
[2021-05-14 08:36] LABS: WHITE BLOOD COUNT (AUTO) 31.1 K/uL (4.8-10.8)
[2021-05-14 08:37] LABS: LYMPHOCYTES % (MANUAL) 3 % (20-46); MONOCYTES % (MANUAL) 2 % (5-12)
[2021-05-14] MEDS: lisinopriL 5 MG TAB PO SCH (09:00)
[2021-05-14] MEDS: ASPIRIN 81 MG TAB.CHEW PO SCH (09:04)
[2021-05-14] MEDS: predniSONE 20 MG TAB PO SCH (09:05)
[2021-05-14] MEDS: VASOPRESSIN 20 UNITS in NACL 0.9% 250 ML IV SCH ×2 (09:48→22:05)
[2021-05-14] MEDS: ACETAMINOPHEN 325 MG TAB PO PRN (10:20)
--- NOTE | 2021-05-14 10:38 | NUR ---
NO DISTRESS NOTED GOOD CHEST RISE SATURATION 95% ON FIO2 OF 100% PEEP [id number]; SYSTOLIC PRESSURE 92mmHg DECREASED PEEP TO [id number]; INCREASED FLOW TO 50 TO MAINTAIN EXPIRATORY RATIO GREATER THAN/EQUAL 2.0 ROHIT/RN NOTIFIED
[2021-05-14 11:17] LABS: ANION GAP 14.3 (8-16); CARBON DIOXIDE 29.9 mmol/L (21-32); CREATININE 1.7 mg/dL (0.6-1.3); POTASSIUM 4.2 mmol/L (3.5-5.1); TOTAL BILIRUBIN 2.7 mg/dL (0.0-1.0)
[2021-05-14 11:26] LABS: MAGNESIUM 1.9 mg/dL (1.8-2.4)
--- NOTE | 2021-05-14 12:58 | NUR ---
05/14/21 RD INITIAL ASSESSMENT COMPLETED PLEASE REFER TO NUTRITION ASSESSMENT UNDER CARE ACTIVITY FOR ESTIMATED NUTRITIONAL NEEDS. 1. WHEN/IF MEDICALLY APPROPRIATE, RECOMMEND VITAL AF 1.2 WITH A GOAL RATE OF 70 ML/HR -WATER FLUSH: 200 ML Q6H OR PER MD -START AT 10 ML/HR AND INCREASE BY 10 ML Q4H TOLERATED -WILL PROVIDE 2016 KCAL AND 126 GM PROTEIN, MEETING ESTIMATED NUTRITIONAL GOALS 2. WHEN/IF EXTUBATED, RECOMMEND CARDIAC + CCHO 60GM DIET TOLERATED 3. RD TO FOLLOW-UP 2-3 DAYS, HIGH RISK (ELEVATED D/T INTUBATION) LEESA ESPINOSA RD
--- NOTE | 2021-05-14 13:54 | NUR ---
STABLE EQUAL CHEST RISE ENDOTRACHEAL SUCTION FOR MODERATE THI YELLOW SECRETIONS AIRWAY PATENT
[2021-05-14] MEDS ORDERED: VANCOMYCIN PER PHARMACY MC PRN (16:50)
[2021-05-14] MEDS ORDERED: VANCOMYCIN 1,500 MG in DEXTROSE 5% 500 ML IV SCH (18:00)
[2021-05-14] MEDS: NACL 0.9% 1,000 ML IV SCH (19:23)
[2021-05-15] VITALS (25 sets, daily range): BP systolic 97–127; BP diastolic 55–72
[2021-05-15] MEDS ORDERED: NOREPINEPHRINE 4 MG/4 ML VIAL IV ONE ×2 (00:54→20:45)
[2021-05-15] MEDS: NOREPINEPHRINE 8 MG in DEXTROSE 5% 250 ML IV PRN ×3 (01:15→15:30)
[2021-05-15] MEDS: PIPERACILLIN/TAZOBACTAM 3.375 GM in DEXTROSE 5% 50 ML IV SCH ×3 (05:17→22:01)
[2021-05-15] MEDS: fentaNYL citrate - 50mL vial 2.5 MG in NACL 0.9% 200 ML IV PRN (05:33)
[2021-05-15 06:11] LABS: BASOPHILS % (AUTO) 0.1 % (0.0-2.0); EOSINOPHILS # (AUTO) 0.5 K/uL (0-0.4); EOSINOPHILS % (AUTO) 1.7 % (0.0-4.0); HEMATOCRIT 41.6 % (36-52); HEMOGLOBIN 12.7 g/dL (12.0-18.0); MEAN CORPUSCULAR HEMOGLOBIN 24 pg (27-31); MEAN CORPUSCULAR HGB CONC 31 g/dL (33-37); MEAN CORPUSCULAR VOLUME 77.7 fL (80-94); MONOCYTES # (AUTO) 1.2 K/uL (0.8-1.0); MONOCYTES % (AUTO) 4.7 % (1.7-9.3); NEUTROPHILS # (AUTO) 23.5 K/uL (1.8-7.7); NEUTROPHILS % (AUTO) 89.5 % (42.2-75.2); PLATELET COUNT (AUTO) 68 K/uL (140-450); RED BLOOD CELL COUNT(AUTO) 5.36 MIL/uL (4.20-6.10); RED CELL DISTRIBUTION WIDTH 18.9 % (11.6-13.7)
[2021-05-15 06:44] LABS: ALBUMIN 1.6 g/dL (3.4-5.0); ANION GAP 9.6 (8-16); CARBON DIOXIDE 33.5 mmol/L (21-32); CREATININE 1.4 mg/dL (0.6-1.3); MAGNESIUM 2.1 mg/dL (1.8-2.4); POTASSIUM 4.1 mmol/L (3.5-5.1); TOTAL BILIRUBIN 3.1 mg/dL (0.0-1.0)
[2021-05-15 08:04] LABS: WHITE BLOOD COUNT (AUTO) 26.3 K/uL (4.8-10.8)
[2021-05-15] MEDS: ACETAMINOPHEN 325 MG TAB PO PRN ×2 (08:09→15:40)
[2021-05-15] MEDS: predniSONE 20 MG TAB PO SCH (08:59)
[2021-05-15] MEDS: VANCOMYCIN HCL 1.25 GM in DEXTROSE 5% 250 ML IV SCH ×2 (08:59→22:00)
[2021-05-15] MEDS: ASPIRIN 81 MG TAB.CHEW PO SCH (08:59)
[2021-05-15] MEDS: VASOPRESSIN 20 UNITS in NACL 0.9% 250 ML IV SCH (09:10)
[2021-05-15] MEDS: CHLORHEXADINE GLUC 2% CLOTH TP SCH (11:44)
[2021-05-15] MEDS: MUPIROCIN CA NASAL 2% 1GM TUBE NS SCH (11:44)
--- NOTE | 2021-05-15 12:30 | NUR ---
ABG REPORTED TO DR DALAL. PER DR RODRIGUES VENT SETTING IS. PT STABLE, EQUAL BILAT CHEST RISE, NO SIGNS OF DISTRESS. WILL CONTINUE TO MONITOR.
--- NOTE | 2021-05-15 16:04 | NUR ---
PT. WITH LOW FLORENTIN SCALE AT HIGH RISK, CONTINUE TO FOLLOW PRESSURE INJURY PREVENTION INTERVENTIONS. PT. ADMITTED WITH CHRONIC STASIS ULCERS TO BLE. -LLE AND RLE STASIS ULCER WOUNDS CLEANSE WITH WOUND CARE SOLUTION, PAT DRY, APPLY XEROFORM DRESSING, COVER WITH DRY DRESSING, SECURE WITH TAPE 3X/WEEK ON MWF AND PRN IF SOILING. -TURNING AND/OR REPOSITIONING EVERY 1-2 HRS. -PROTECT/FLOAT HEELS -BY PLACING PILLOWS UNDER CALVES AT ALL TIMES, UNLESS OTHERWISE CONTRAINDICATE. APPLY HEEL PROTECTORS -MANAGE FRICTION AND SHEAR BY USING LIFT SHEET TO REPOSITION THE PATIENT. -MANAGE MOISTURE, FRICTION, AND SHEAR. KEEP SKIN DRY AND PROTECT FROM FRICTION. -INSPECT UNDER AND AROUND MEDICAL DEVICES. -ASSESS AND MONITOR SKIN CONDITION DURING POSITION CHANGE -PRESSURE REDISTRIBUTION SURFACE AND OFFLOADING SACRALCOCCYX -HOB 30 DEGREES, TOLERATED -PLEASE FOLLOW RD RECOMMENDATIONS
[2021-05-15] MEDS: NON ADHERENT DRESSING TP SCH (17:09)
--- NOTE | 2021-05-15 20:23 | NUR ---
RECEIVED ON A DOZIER VENTILATOR (MEDONE #[id number]) PLUGGED INTO RED OUTLET TOLERATING WELL WITHOUT ADVERSE REACTIONS NOTED TO AN ENDOTRACHEAL TUBE #8.0 SECURED AT 25cm TEETH/GUM LINE WITH AN ANCHOR FAST CUFF PRESSURE CHECKED NOTED AMBU BAG AT BEDSIDE RESTING COMFORTABLY NO EVIDENCE OF RESPIRATORY DISTRESS NOTED GOOD CHEST RISE AIRWAY PATENT Addendum: 05/15/21 at 2245 by Jef HOPE SATURATION 99% ON FIO2 OF 75% PEEP 10 cmH2O TITRATED FIO2 TO 60%; I/E RATIO AT 1:3.9 TO +4.0 INSPIRATORY FLOW AT 55 DECREASED FLOW TO 50
[2021-05-15] MEDS: NACL 0.9% 1,000 ML IV SCH (21:58)
--- NOTE | 2021-05-15 23:50 | NUR ---
RESTING WELL NO DISTRESS NOTED EQUAL CHEST RISE ENDOTRACHEAL SUCTION FOR MODERATE THIN YELLOW SECRETIONS AIRWAY PATENT Addendum: 05/16/21 at 0056 by Jef HOPE SATURATION 99% ON FIO2 OF 60% PEEP [id number] TITRATED FIO2 TO 50%
[2021-05-16] VITALS (26 sets, daily range): BP systolic 97–126; BP diastolic 59–83
--- NOTE | 2021-05-16 02:50 | NUR ---
NO DISTRESS NOTED EQUAL CHEST RISE AIRWAY; SYSTOLIC PRESSURE 97mmHg PEEP TO 8 cmH2O; SATURATION 98% TITRATED FIO2 TO 35%
[2021-05-16] MEDS ORDERED: NOREPINEPHRINE 4 MG/4 ML VIAL IV ONE (04:29)
[2021-05-16] MEDS: PIPERACILLIN/TAZOBACTAM 3.375 GM in DEXTROSE 5% 50 ML IV SCH ×3 (05:29→20:50)
[2021-05-16 06:21] LABS: BASOPHILS # (AUTO) 0.1 K/uL (0.00-0.22); BASOPHILS % (AUTO) 0.5 % (0.0-2.0); EOSINOPHILS % (AUTO) 0.1 % (0.0-4.0); HEMATOCRIT 40.8 % (36-52); HEMOGLOBIN 12.6 g/dL (12.0-18.0); LYMPHOCYTES # (AUTO) 0.9 K/uL (2.0-11.5); LYMPHOCYTES % (AUTO) 4.2 % (20.5-51.1); MEAN CORPUSCULAR HEMOGLOBIN 24 pg (27-31); MEAN CORPUSCULAR HGB CONC 31 g/dL (33-37); MEAN CORPUSCULAR VOLUME 77.3 fL (80-94); MONOCYTES % (AUTO) 4.6 % (1.7-9.3); NEUTROPHILS # (AUTO) 19.8 K/uL (1.8-7.7); NEUTROPHILS % (AUTO) 90.6 % (42.2-75.2); PLATELET COUNT (AUTO) 65 K/uL (140-450); RED BLOOD CELL COUNT(AUTO) 5.27 MIL/uL (4.20-6.10); RED CELL DISTRIBUTION WIDTH 19.3 % (11.6-13.7); WHITE BLOOD COUNT (AUTO) 21.8 K/uL (4.8-10.8)
[2021-05-16 06:47] LABS: ALBUMIN 1.6 g/dL (3.4-5.0); ANION GAP 8.3 (8-16); CARBON DIOXIDE 36.3 mmol/L (21-32); MAGNESIUM 2.6 mg/dL (1.8-2.4); POTASSIUM 4.6 mmol/L (3.5-5.1); TOTAL BILIRUBIN 1.8 mg/dL (0.0-1.0)
[2021-05-16] MEDS: ACETAMINOPHEN 325 MG TAB PO PRN (07:15)
[2021-05-16] MEDS: VANCOMYCIN HCL 1.25 GM in DEXTROSE 5% 250 ML IV SCH ×2 (08:59→20:50)
[2021-05-16] MEDS: ASPIRIN 81 MG TAB.CHEW PO SCH (08:59)
[2021-05-16] MEDS: predniSONE 20 MG TAB PO SCH (09:00)
[2021-05-16] MEDS: IBUPROFEN 600 MG TAB PO PRN ×2 (09:00→17:00)
[2021-05-16] MEDS: NACL 0.9% 1,000 ML IV SCH (10:40)
[2021-05-16] MEDS: CHLORHEXADINE GLUC 2% CLOTH TP SCH (10:55)
[2021-05-16] MEDS: MUPIROCIN CA NASAL 2% 1GM TUBE NS SCH (10:55)
[2021-05-16] MEDS: NOREPINEPHRINE 8 MG in DEXTROSE 5% 250 ML IV PRN (12:03)
[2021-05-16] MEDS: NON ADHERENT DRESSING TP SCH (13:00)
[2021-05-16] MEDS: VASOPRESSIN 20 UNITS in NACL 0.9% 250 ML IV SCH (18:13)
[2021-05-17] VITALS (25 sets, daily range): BP systolic 89–121; BP diastolic 56–73
[2021-05-17] MEDS ORDERED: IBUPROFEN 400 MG TAB ONE (00:14)
[2021-05-17] MEDS: IBUPROFEN 600 MG TAB PO PRN (00:21)
[2021-05-17] MEDS ORDERED: NOREPINEPHRINE 4 MG/4 ML VIAL IV ONE (01:52)
[2021-05-17] MEDS: PIPERACILLIN/TAZOBACTAM 3.375 GM in DEXTROSE 5% 50 ML IV SCH ×3 (05:19→20:45)
[2021-05-17] MEDS: NACL 0.9% 1,000 ML IV SCH (05:20)
[2021-05-17 06:35] LABS: ANION GAP 7.8 (8-16); CARBON DIOXIDE 36.6 mmol/L (21-32); CREATININE 1.6 mg/dL (0.6-1.3); POTASSIUM 5.4 mmol/L (3.5-5.1)
--- NOTE | 2021-05-17 08:45 | NUR ---
PT DRESSING TO CHEST TUBE CHANGED, PT GIVEN BATH, TURNED, OXYGEN SATURATIONS DROPPED TO 75% AFTER TURNING TO LEFT SIDE. SUCTIONING PERFORMED, RT NOTIFIED, FI02 INCREASED TO 100%. DR. DALAL NOTIFIED.
[2021-05-17] MEDS ORDERED: VANCOMYCIN HCL 1.25 GM in DEXTROSE 5% 250 ML IV SCH (09:00)
[2021-05-17] MEDS: predniSONE 20 MG TAB PO SCH (09:00)
[2021-05-17] MEDS: ASPIRIN 81 MG TAB.CHEW PO SCH (09:00)
[2021-05-17] MEDS: MUPIROCIN CA NASAL 2% 1GM TUBE NS SCH (11:14)
[2021-05-17] MEDS: CHLORHEXADINE GLUC 2% CLOTH TP SCH (11:14)
--- NOTE | 2021-05-17 11:48 | NUR ---
05/17/21 RD FOLLOW UP COMPLETED PLEASE REFER TO NUTRITION ASSESSMENT UNDER CARE ACTIVITY FOR ESTIMATED NUTRITIONAL NEEDS. 1. WHEN/IF MEDICALLY APPROPRIATE, INCREASE NEPRO TF GOAL RATE TO 40 ML/HR -WATER FLUSH: 100 ML Q6H PER MD -INCREASE BY 10 ML Q4H TOLERATED -WILL PROVIDE 1728 KCAL AND 77 GM PROTEIN, MEETING ESTIMATED NUTRITIONAL GOALS 2. MONITOR NUTRITION-RELATED LAB VALUES 3. WHEN/IF EXTUBATED, RECOMMEND CARDIAC + CCHO 60GM DIET TOLERATED 4. RD TO FOLLOW-UP 2-3 DAYS, HIGH RISK LEESA ESPINOSA, RD
[2021-05-17 11:55] LABS: BASOPHILS # (AUTO) 0.1 K/uL (0.00-0.22); BASOPHILS % (AUTO) 0.3 % (0.0-2.0); EOSINOPHILS % (AUTO) 0.1 % (0.0-4.0); HEMATOCRIT 41.9 % (36-52); HEMOGLOBIN 12.6 g/dL (12.0-18.0); LYMPHOCYTES # (AUTO) 1.1 K/uL (2.0-11.5); MEAN CORPUSCULAR HEMOGLOBIN 24 pg (27-31); MEAN CORPUSCULAR HGB CONC 30 g/dL (33-37); MEAN CORPUSCULAR VOLUME 78.9 fL (80-94); MONOCYTES # (AUTO) 0.4 K/uL (0.8-1.0); MONOCYTES % (AUTO) 1.6 % (1.7-9.3); NEUTROPHILS # (AUTO) 20.9 K/uL (1.8-7.7); PLATELET COUNT (AUTO) 78 K/uL (140-450); RED BLOOD CELL COUNT(AUTO) 5.31 MIL/uL (4.20-6.10); RED CELL DISTRIBUTION WIDTH 19.7 % (11.6-13.7); WHITE BLOOD COUNT (AUTO) 22.5 K/uL (4.8-10.8)
[2021-05-17] MEDS: NOREPINEPHRINE 8 MG in DEXTROSE 5% 250 ML IV PRN ×2 (11:58→21:00)
[2021-05-17] MEDS: NON ADHERENT DRESSING TP SCH (12:32)
[2021-05-17 12:56] LABS: PHOSPHORUS 5.7 mg/dL (2.5-4.9)
[2021-05-18] VITALS (28 sets, daily range): BP systolic 87–119; BP diastolic 54–83
[2021-05-18] MEDS: NACL 0.9% 1,000 ML IV SCH ×2 (02:44→22:54)
[2021-05-18] MEDS: fentaNYL citrate - 50mL vial 2.5 MG in NACL 0.9% 200 ML IV PRN (03:48)
[2021-05-18] MEDS: NOREPINEPHRINE 8 MG in DEXTROSE 5% 250 ML IV PRN ×2 (03:53→14:11)
[2021-05-18] MEDS ORDERED: VASOPRESSIN 20 UNITS/ML VIAL ONE (04:08)
[2021-05-18] MEDS: VASOPRESSIN 20 UNITS in NACL 0.9% 250 ML IV SCH (04:13)
[2021-05-18] MEDS: PIPERACILLIN/TAZOBACTAM 3.375 GM in DEXTROSE 5% 50 ML IV SCH ×3 (05:32→20:42)
[2021-05-18 06:09] LABS: BASOPHILS % (AUTO) 0.2 % (0.0-2.0); EOSINOPHILS # (AUTO) 0.2 K/uL (0-0.4); EOSINOPHILS % (AUTO) 1.1 % (0.0-4.0); HEMATOCRIT 42.8 % (36-52); HEMOGLOBIN 12.9 g/dL (12.0-18.0); LYMPHOCYTES # (AUTO) 0.9 K/uL (2.0-11.5); MEAN CORPUSCULAR HEMOGLOBIN 24 pg (27-31); MEAN CORPUSCULAR HGB CONC 30 g/dL (33-37); MEAN CORPUSCULAR VOLUME 79.6 fL (80-94); MONOCYTES # (AUTO) 0.6 K/uL (0.8-1.0); MONOCYTES % (AUTO) 2.7 % (1.7-9.3); NEUTROPHILS # (AUTO) 19.6 K/uL (1.8-7.7); PLATELET COUNT (AUTO) 91 K/uL (140-450); RED BLOOD CELL COUNT(AUTO) 5.38 MIL/uL (4.20-6.10); RED CELL DISTRIBUTION WIDTH 20.4 % (11.6-13.7); WHITE BLOOD COUNT (AUTO) 21.3 K/uL (4.8-10.8)
[2021-05-18 06:43] LABS: ANION GAP 10.3 (8-16); CARBON DIOXIDE 33.7 mmol/L (21-32)
--- NOTE | 2021-05-18 07:30 | NUR ---
RECEIVED REPORT FROM CRIME SPECIALIST, PT IN BED WITH HOB ELEVATED, SEDATED TO RASS-3 WITH GAG AND CORNEAL REFLEX. ETT TO VENT ACVC FIO2 100% PEEP 8. WITH RIJ CENTRAL LINE RUNNING NS AT 50CC/HR, VERSED 1MG/HR, FENT 0.5MCG/KG/HR, VASO 0.01U, LEVO 18MCG. CHESTUBE INTACT AND DRAINING, RAMÍREZ PATENT
--- NOTE | 2021-05-18 08:00 | NUR ---
RECEIVED CALL FROM LAB K 6.0, NOTIFIED DR OVERTON, ORDERED NEPHRO CONSULT WITH DR MCNEILL, AND CALCIUM GLUCONATE IV
[2021-05-18] MEDS ORDERED: CALCIUM GLUCONATE 10% 1,000 MG in NACL 0.9% 50 ML IV SCH (08:30)
--- NOTE | 2021-05-18 08:30 | NUR ---
TEMP 99.9, COOLING MEASURES WITH ICE PACKS
[2021-05-18] MEDS: ASPIRIN 81 MG TAB.CHEW PO SCH (09:00)
[2021-05-18] MEDS: CHLORHEXADINE GLUC 2% CLOTH TP SCH (10:19)
[2021-05-18] MEDS: MUPIROCIN CA NASAL 2% 1GM TUBE NS SCH (10:19)
[2021-05-18] MEDS: ACETAMINOPHEN 325 MG TAB PO PRN ×2 (12:00→23:40)
--- NOTE | 2021-05-18 12:00 | NUR ---
TEMP 99.7, CONTINUE COOLING MEASURES
[2021-05-18] MEDS: NON ADHERENT DRESSING TP SCH (13:12)
[2021-05-18] MEDS ORDERED: SODIUM ZIRCONIUM CYCLOSILICATE 10 GM POWD.PACK PO ONE (13:45)
--- NOTE | 2021-05-18 16:30 | NUR ---
TEMP 99.0
--- NOTE | 2021-05-18 17:30 | NUR ---
WITH LARGE SOFT BM, BETO CARE DONE, TURNED AND REPOSITIONED, WOUND CARE DONE
--- NOTE | 2021-05-18 19:20 | NUR ---
RECEIVED REPORT AT BEDSIDE FROM TIFFANY RN FOR CONTINUITY OF CARE. PT IS LAYING IN BED RASS -3. ETT TO VENT FIO2 @100%, RATE @16, AND PEEP @5. RIJ CENTRAL LINE IN PLACE, PATENT AND INTACT, INFUSING NS @50 ML/HR, VERSED @1MG/HR, FENTANYL @0.5 MCG/KG/HR, VASO @0.02 UNITS/MIN, AND LEVOPHED @10 MCG/MIN. CHEST TUBE INTACT AND DRAINING. F/C IN PLACE, PATENT AND INTACT, DRAINING TO GRAVITY. INITIAL ASSESSMENT COMPLETED. ALL SAFETY MEASURES IN PLACE. ENHANCED PRECAUTIONS IN PLACE. CALL LIGHT WITHIN REACH WITH BED IN LOWEST POSITION. WILL CONTINUE TO MONITOR.
--- NOTE | 2021-05-18 21:00 | NUR ---
SCHEDULED MEDS ADMINISTERED ORDERED. HEPARIN HELD DUE TO LOW PLT COUNT OF 91. TOLERATED WELL. ALL SAFETY MEASURES IN PLACE. CALL LIGHT WITHIN REACH AND BED IN LOWEST POSITION. WILL CONTINUE TO MONITOR.
[2021-05-18] MEDS ORDERED: LORazepam 2 MG/ML VIAL ONE (22:44)
[2021-05-18] MEDS: LORazepam 2 MG/ML VIAL IM/IVP PRN (22:52)
--- NOTE | 2021-05-18 22:56 | NUR ---
PT OBSERVED. HR TACHY @120 BPM, RR ELEVATED @40, AND APPEARS RESTLESS. PRN ATIVAN ADMINISTERED ORDERED. TOLERATED WELL. WILL CONTINUE TO MONITOR.
--- NOTE | 2021-05-18 23:40 | NUR ---
PT TEMP OBSERVED @100.6. PRN TYLENOL ADMINISTERED ORDERED. ICE PACKS TO HEAD AND UNDERARMS PROVIDED AND COVERS REMOVED. WILL CONTINUE TO MONITOR.
[2021-05-19] VITALS (31 sets, daily range): BP systolic 66–131; BP diastolic 35–87
[2021-05-19 00:22] LABS: ANION GAP 7.9 (8-16); CARBON DIOXIDE 35.1 mmol/L (21-32); CREATININE 1.4 mg/dL (0.6-1.3)
[2021-05-19] MEDS ORDERED: VASOPRESSIN 20 UNITS/ML VIAL ONE (00:53)
[2021-05-19] MEDS: NOREPINEPHRINE 8 MG in DEXTROSE 5% 250 ML IV PRN (01:00)
[2021-05-19] MEDS: VASOPRESSIN 20 UNITS in NACL 0.9% 250 ML IV SCH (01:00)
[2021-05-19] MEDS: MIDAZOLAM MDV 100 MG in NACL 0.9% 80 ML IV PRN (01:00)
--- NOTE | 2021-05-19 03:00 | NUR ---
TEMP @99.8. COOLING MEASURES CONTINUED. WILL CONTINUE TO MONITOR.
--- NOTE | 2021-05-19 03:50 | NUR ---
AM CARE, ORAL CARE VIA VAP KIT, ICE PACKS PROVIDED FOR INCREASED TEMP. TOLERATED WELL. WILL CONTINUE TO MONITOR.
[2021-05-19] MEDS: PIPERACILLIN/TAZOBACTAM 3.375 GM in DEXTROSE 5% 50 ML IV SCH ×3 (05:00→21:45)
[2021-05-19 07:05] LABS: BASOPHILS % (AUTO) 0.2 % (0.0-2.0); EOSINOPHILS # (AUTO) 0.1 K/uL (0-0.4); EOSINOPHILS % (AUTO) 0.3 % (0.0-4.0); HEMATOCRIT 38.8 % (36-52); LYMPHOCYTES # (AUTO) 0.5 K/uL (2.0-11.5); LYMPHOCYTES % (AUTO) 2.4 % (20.5-51.1); MEAN CORPUSCULAR HEMOGLOBIN 24 pg (27-31); MEAN CORPUSCULAR HGB CONC 31 g/dL (33-37); MEAN CORPUSCULAR VOLUME 77.3 fL (80-94); MONOCYTES # (AUTO) 0.3 K/uL (0.8-1.0); MONOCYTES % (AUTO) 1.6 % (1.7-9.3); NEUTROPHILS # (AUTO) 19.4 K/uL (1.8-7.7); NEUTROPHILS % (AUTO) 95.5 % (42.2-75.2); PLATELET COUNT (AUTO) 89 K/uL (140-450); RED BLOOD CELL COUNT(AUTO) 5.03 MIL/uL (4.20-6.10); RED CELL DISTRIBUTION WIDTH 19.5 % (11.6-13.7)
[2021-05-19 07:08] LABS: ANION GAP 6.2 (8-16); CARBON DIOXIDE 35.9 mmol/L (21-32); CREATININE 1.4 mg/dL (0.6-1.3); POTASSIUM 5.1 mmol/L (3.5-5.1)
--- NOTE | 2021-05-19 07:23 | NUR ---
GAVE REPORT AT BEDSIDE TO DAYSHIFT RN FOR CONTINUITY OF CARE.
--- NOTE | 2021-05-19 07:29 | NUR ---
RECEIVED INTUBATED PT WITH A 8.0 ETT SECURED @25 TEETH/GUM ON VENT. SETTINGS A/C VC 16, VT 400, PEEP 8 AND FIO2 TITRATED TO 65%. PT IS NOT IN ANY DISTRESS AT THIS TIME. ETT IS SECURE WITH ANCHOR FAST DEVICE. VENT IS PLUGGED INTO A RED OUTLET WITH ALARMS ON AND FUNCTIONING. WILL CONTINUE TO MONITOR.
--- NOTE | 2021-05-19 07:30 | NUR ---
RECEIVED REPORT FROM JA REEVES.
--- NOTE | 2021-05-19 08:30 | NUR ---
PATIENT SEDATED. PUPILS 3MM AND REACTIVE. RIJ TLC IN PLACE. NS AT 50CC/HR, VERSED AT 1MG/HR, FENTANYL AT 0.5MCG/KG/HR, VASOPRESSIN AT .02UNITS/MIN, VERSED 1MG/HR. HEART SOUNDS REGULAR. SINUS TACH. ANTERIOR LATERAL BREATH SOUNDS COARSE BILATERALLY. RIGHT CHEST TUBE IN PLACE TO -20CM SUCTION WITH + AIR LEAK. SMALL AMOUNT OF SEROUS DRAINAGE. ETT TO VENT AC FIO2 .65%/RATE 18/ PEEP 8. UPPER EXTREMETIES WITH 2+ EDEMA. LOWER EXTREMETIES VENOUS STASIS PEDAL PULSES PALPABLE. DRESSING TO BILATERAL LOWER LEGS. HYPO ACTIVE BOWEL SOUNDS. ABD. SOFT. NGT RIGHT NARE. TF NEPRO. RECEIVING BOLUSES DUE TO NO AVAILABLE PUMP. NO RISIDUALS. RAMÍREZ IN PLACE WITH YELLOW URINE.
[2021-05-19 08:42] LABS: WHITE BLOOD COUNT (AUTO) 20.3 K/uL (4.8-10.8)
[2021-05-19] MEDS ORDERED: VANCOMYCIN 1,500 MG in DEXTROSE 5% 500 ML IV SCH (09:00)
[2021-05-19] MEDS: ASPIRIN 81 MG TAB.CHEW PO SCH (09:00)
--- NOTE | 2021-05-19 10:30 | NUR ---
FIO2 DECREASED TO .55 BY RT.
[2021-05-19] MEDS: CHLORHEXADINE GLUC 2% CLOTH TP SCH (10:55)
[2021-05-19] MEDS: MUPIROCIN CA NASAL 2% 1GM TUBE NS SCH (10:55)
[2021-05-19] MEDS: NON ADHERENT DRESSING TP SCH (13:37)
--- NOTE | 2021-05-19 16:01 | NUR ---
05/19/21 RD FOLLOW UP COMPLETED PLEASE REFER TO NUTRITION PROGRESS NOTE UNDER CARE ACTIVITY FOR ESTIMATED NUTRITION NEEDS. RD RECOMMENDATIONS: 1. WHEN/IF MEDICALLY APPROPRIATE, INCREASE NEPRO TF GOAL RATE TO 40 ML/HR -WATER FLUSH: 100 ML Q6H PER MD -INCREASE BY 10 ML Q4H TOLERATED -WILL PROVIDE 1728 KCAL AND 77 GM PROTEIN, MEETING ESTIMATED NUTRITIONAL GOALS 2. MONITOR NUTRITION-RELATED LAB VALUES 3. WHEN/IF EXTUBATED, RECOMMEND CARDIAC + CCHO 60GM DIET TOLERATED 4. RD TO FOLLOW-UP 2-3 DAYS, HIGH RISK SAKSHI WINSTON, RD
[2021-05-19] MEDS: ACETAMINOPHEN 325 MG TAB PO PRN (16:53)
--- NOTE | 2021-05-19 17:00 | NUR ---
BP STABLE. DOPAMINE DECREASED TO 3MCG/KG/MIN. SPONTANEOUSLY OPENING EYES BUT NOT FOLLOWING ANY COMMANDS
[2021-05-19] MEDS: NACL 0.9% 1,000 ML IV SCH (17:52)
--- NOTE | 2021-05-19 19:00 | NUR ---
REPORT GIVEN TO NIGHT RN.
[2021-05-20] VITALS (28 sets, daily range): BP systolic 99–142; BP diastolic 41–61
[2021-05-20] MEDS: ACETAMINOPHEN 325 MG TAB PO PRN ×2 (02:13→12:30)
[2021-05-20] MEDS: PIPERACILLIN/TAZOBACTAM 3.375 GM in DEXTROSE 5% 50 ML IV SCH (05:00)
[2021-05-20 05:40] LABS: BASOPHILS % (AUTO) 0.1 % (0.0-2.0); EOSINOPHILS # (AUTO) 0.2 K/uL (0-0.4); EOSINOPHILS % (AUTO) 0.9 % (0.0-4.0); HEMATOCRIT 36.1 % (36-52); LYMPHOCYTES # (AUTO) 0.7 K/uL (2.0-11.5); MEAN CORPUSCULAR HEMOGLOBIN 24 pg (27-31); MEAN CORPUSCULAR HGB CONC 30 g/dL (33-37); MEAN CORPUSCULAR VOLUME 77.3 fL (80-94); MONOCYTES # (AUTO) 0.6 K/uL (0.8-1.0); MONOCYTES % (AUTO) 2.6 % (1.7-9.3); NEUTROPHILS % (AUTO) 93.4 % (42.2-75.2); PLATELET COUNT (AUTO) 108 K/uL (140-450); RED BLOOD CELL COUNT(AUTO) 4.67 MIL/uL (4.20-6.10); RED CELL DISTRIBUTION WIDTH 19.7 % (11.6-13.7); WHITE BLOOD COUNT (AUTO) 23.6 K/uL (4.8-10.8)
[2021-05-20 07:20] LABS: ANION GAP 9.9 (8-16); CARBON DIOXIDE 34.9 mmol/L (21-32); CREATININE 1.1 mg/dL (0.6-1.3); POTASSIUM 4.8 mmol/L (3.5-5.1)
--- NOTE | 2021-05-20 07:30 | NUR ---
RECEIVED REPORT FROM MOLECULAR BIOLOGY PROFESSOR, PT IN BED WITH HOB ELEVATED, PT OBTUNDED, RESPONSIVE ONLY TO TACTILE STIMULI WITH GAG AND CORNEAL REFLEX. ETT TO VENT ACVC FIO2 70% PEEP 8. WITH RIJ CENTRAL LINE RUNNING NS AT 50CC/HR, VERSED 1MG/HR, FENT 1MCG/KG/HR, VASO 0.02U, LEVO 14MCG. CHESTUBE INTACT AND DRAINING, RAMÍREZ PATENT
--- NOTE | 2021-05-20 07:40 | NUR ---
RECEIVED ON A VIASYS DOZIER ([employer] #1830) VENTILATOR PLUGGED INTO RED OUTLET TOLERATING WELL WITHOUT ADVERSE REACTIONS NOTED TO AN ENDOTRACHEAL TUBE #8.0 SECURED AT 25cm TEETH/GUM LINE WITH AN ANCHOR FAST CUFF PRESSURE CHECKED NOTED AMBU BAG AT BEDSIDE SEDATED GOOD CHEST RISE ENDOTRACHEAL SUCTION FOR MODERATE THIN YELLOW SECRETIONS AIRWAY PATENT
[2021-05-20] MEDS: ALBUTEROL SULFATE/IPRATROPIU 3 ML SOL IH PRN (07:46)
--- NOTE | 2021-05-20 08:30 | NUR ---
SEEN AND EXAMINED BY DR THOMAS, ORDERED IVF D5W 100CC/HR D/T HYPERNATREMIA
[2021-05-20] MEDS: DEXTROSE 5% 1,000 ML IV SCH ×2 (08:35→18:46)
[2021-05-20] MEDS: ASPIRIN 81 MG TAB.CHEW PO SCH (09:00)
[2021-05-20] MEDS: IBUPROFEN 600 MG TAB PO PRN (09:00)
--- NOTE | 2021-05-20 09:00 | NUR ---
TEMP 103.3, COOLING MEASURES WITH ICE PACKS, SLIM GODFREY
--- NOTE | 2021-05-20 10:55 | NUR ---
REVIEWED HHN THERAPY FREQUENCY WITH DR. ADOLFO PACK: ADD HHN THERAPY DUONEB Q6
--- NOTE | 2021-05-20 10:55 | NUR ---
NO DISTRESS NOTED GOOD CHEST RISE ENDOTRACHEAL SUCTION FOR LARGE THIN YELLOW WITH BLOOD TINGE SECRETIONS AIRWAY PATENT
--- NOTE | 2021-05-20 11:15 | NUR ---
SEEN AND EXAMINED BY DR MACHADO, KENNETH TRINIDAD, ORDERED MEROPENEM IV
[2021-05-20] MEDS: VANCOMYCIN 1,500 MG in DEXTROSE 5% 500 ML IV SCH (12:00)
--- NOTE | 2021-05-20 12:30 | NUR ---
TEMP 100.3, COOLING MEASURES WITH ICE PACKS, TYLENOL GIVEN
[2021-05-20] MEDS: NON ADHERENT DRESSING TP SCH (13:11)
[2021-05-20] MEDS: ALBUTEROL SULFATE/IPRATROPIU 3 ML SOL IH SCH ×2 (14:08→19:00)
[2021-05-20] MEDS ORDERED: NOREPINEPHRINE 4 MG/4 ML VIAL IV ONE (14:26)
[2021-05-20] MEDS: NOREPINEPHRINE 8 MG in DEXTROSE 5% 250 ML IV PRN (14:37)
--- NOTE | 2021-05-20 18:00 | NUR ---
SEEN BY DR ALLEN NEW ORDERS MADE AND CARRIED OUT
--- NOTE | 2021-05-20 18:15 | NUR ---
DR ALLEN ORDERED TO REMOVE RIJ CENTRAL LINE AND CHANGE TO PICC LINE. PT HAS NO KNOWN FAMILY TO GIVE CONSENT, PER DR NICOLE 2 MD HAS TO SIGN. DR ALLEN SIGNED CONSENT, DR NICOLE WILL SIGN IN AM. WILL ENDORSED TO NEXT SHIFT
--- NOTE | 2021-05-20 18:30 | NUR ---
TEMP 97.8, WILL CONTINUE TO MONITOR
[2021-05-20] MEDS: FLUCONAZOLE 200 MG/NS PREMIX 100 ML IV SCH (18:53)
--- NOTE | 2021-05-20 19:30 | NUR ---
RECEIVED PATIENT ON BED, ORALLY INTUBATED AND VENTILATED AT 60% FIO2; SEDATED WITH FENTANYL AND VERSED DRIP. IV IN PROGRESS D5W 100 ML/HR AND ON PRESSORS LEVOPHED AND VASOPRESSIN DRIP FOR BP MAINTENANCE REGULATED PER PROTOCOL. CARDIACSCOPE SHOWS ON SINUS RHYTHM JR 98/MIN NO ARRHYTHMIAS SEE. WITH CHEST I TUBE TO RIGHT MID AXILLARY DRAINING TO SEROSANGUINOUS OUTPUT; DRESSING CLEAN AND INTACT. ABDOMEN IS SOFT, ACTIVE BOWEL SOUNDS. ON CONTINOUS TUBE FEEDING NEPRO AT 30 ML/HR VIA NGT; TOLERATED WITH MINIMAL RESIDUAL. RAMÍREZ CATH IN PLACE, WITH GOOD AMOUNT OF URINE OUTPUT.
--- NOTE | 2021-05-20 20:00 | NUR ---
FEVERISH 99.2 F COOLING MEASURES DONE.
[2021-05-20] MEDS: MEROPENEM 1,000 MG in NACL 0.9% 50 ML IV SCH (21:25)
--- NOTE | 2021-05-20 22:00 | NUR ---
URINE CS SAMPLE SENT TO MICROBIOLOGY ORDERED BY DR. ALLEN.
[2021-05-21] VITALS (29 sets, daily range): BP systolic 84–163; BP diastolic 37–87
[2021-05-21] MEDS: DEXTROSE 5% 1,000 ML IV SCH ×2 (00:04→12:41)
[2021-05-21] MEDS: ALBUTEROL SULFATE/IPRATROPIU 3 ML SOL IH SCH ×4 (00:39→19:00)
[2021-05-21] MEDS ORDERED: NOREPINEPHRINE 4 MG/4 ML VIAL IV ONE (02:47)
[2021-05-21] MEDS: NOREPINEPHRINE 8 MG in DEXTROSE 5% 250 ML IV PRN ×2 (02:59→18:14)
--- NOTE | 2021-05-21 03:30 | NUR ---
MORNING BED BATH DONE. REPOSITIONED PATIENT.
[2021-05-21] MEDS: VASOPRESSIN 20 UNITS in NACL 0.9% 250 ML IV SCH (05:01)
[2021-05-21 06:23] LABS: BASOPHILS # (AUTO) 0.1 K/uL (0.00-0.22); BASOPHILS % (AUTO) 0.4 % (0.0-2.0); EOSINOPHILS # (AUTO) 0.3 K/uL (0-0.4); EOSINOPHILS % (AUTO) 1.6 % (0.0-4.0); HEMATOCRIT 35.2 % (36-52); HEMOGLOBIN 10.4 g/dL (12.0-18.0); LYMPHOCYTES # (AUTO) 0.6 K/uL (2.0-11.5); LYMPHOCYTES % (AUTO) 3.5 % (20.5-51.1); MEAN CORPUSCULAR HEMOGLOBIN 24 pg (27-31); MEAN CORPUSCULAR HGB CONC 30 g/dL (33-37); MEAN CORPUSCULAR VOLUME 79.4 fL (80-94); MONOCYTES # (AUTO) 0.6 K/uL (0.8-1.0); MONOCYTES % (AUTO) 3.2 % (1.7-9.3); NEUTROPHILS # (AUTO) 17.1 K/uL (1.8-7.7); NEUTROPHILS % (AUTO) 91.3 % (42.2-75.2); PLATELET COUNT (AUTO) 104 K/uL (140-450); RED BLOOD CELL COUNT(AUTO) 4.43 MIL/uL (4.20-6.10); RED CELL DISTRIBUTION WIDTH 19.7 % (11.6-13.7); WHITE BLOOD COUNT (AUTO) 18.7 K/uL (4.8-10.8)
[2021-05-21 06:47] LABS: ANION GAP 3.3 (8-16); CARBON DIOXIDE 37.8 mmol/L (21-32); CREATININE 1.1 mg/dL (0.6-1.3); POTASSIUM 5.1 mmol/L (3.5-5.1)
--- NOTE | 2021-05-21 07:23 | NUR ---
RECEIVED ON A DOZIER VENTILATOR ([employer] #1830) PLUGGED INTO RED OUTLET TOLERATING WELL WITHOUT ADVERSE REACTIONS NOTED TO AN ENDOTRACHEAL TUBE #8.0 SECURED AT 25cm TEETH/GUM LINE WITH AN ANCHOR FAST CUFF PRESSURE CHECKED NOTED SEDATED EQUAL CHEST RISE ENDOTRACHEAL SUCTION FOR LARGE SEMI THICK YELLOW SECRETIONS OROPHARYNGEAL SUCTION FOR COPIOUS SEMI THICK YELLOW SECRETIONS AIRWAY PATENT SATURATION 96% ON FIO2 OF 60% PEEP 5cmH2O POST HHN THERAPY TITRATED FIO2 TO 55%
--- NOTE | 2021-05-21 07:30 | NUR ---
REPORT RECEIVED FROM PM SHIFT RN FOR CONTINUITY OF CARE. ETT TO VENT. RASS -3. AC/VC MODE FIO2 60%, RATE 16, TV 500, PEEP 8. IV SITE RIJ CENTRAL LINE, TLC INFUSING VERSED 1 MG/HR, FENTANYL 0.8MCG/HR, LEVOPHED 10MCG/MIN, VASOPRESSIN 0.02 UNITS/MIN, AND NS 100ML/HR. RT NARE NGT TO FEEDING. 0 RESIDUALS NOTED. R CHEST TUBE IN PLACE. RAMÍREZ CATHETER IN PLACE. SKIN WARM, MOIST. RECTAL TEMP 101.5F. COOLING MEASURES IN PLACE. SAFETY PRECAUTIONS IN PLACE. HOB 30 DEGREES. BED LOCKED IN LOWEST POSITION. Addendum: 05/21/21 at 1120 by Jun Fuentes RN INFUSING D5 100 ML/HR, NOT NS.
[2021-05-21] MEDS: fentaNYL citrate - 50mL vial 2.5 MG in NACL 0.9% 200 ML IV PRN (08:00)
[2021-05-21] MEDS: MEROPENEM 1,000 MG in NACL 0.9% 50 ML IV SCH ×2 (08:06→20:32)
[2021-05-21] MEDS: ASPIRIN 81 MG TAB.CHEW PO SCH (08:06)
[2021-05-21] MEDS: ACETAMINOPHEN 325 MG TAB PO PRN ×2 (08:25→23:10)
[2021-05-21] MEDS ORDERED: SODIUM ZIRCONIUM CYCLOSILICATE 10 GM POWD.PACK PO SCH (08:43)
--- NOTE | 2021-05-21 09:30 | NUR ---
LEFT MESSAGE FOR PICC LINE NURSE
--- NOTE | 2021-05-21 10:00 | NUR ---
PROVIDED ORAL CARE, PT REPOSITIONED
--- NOTE | 2021-05-21 11:36 | NUR ---
SEDATED NO DISTRESS NOTED GOOD CHEST RISE AIRWAY PATENT SATURATION 100% ON FIO2 OF 60% PEEP OF 8cmH2O TITRATED FIO2 TO 45% PEEP TO 5cmH2O VALERIE/RN NOTIFIED
--- NOTE | 2021-05-21 12:30 | NUR ---
PT SUCTIONED, ORAL CARE PROVIDED. WILL CONTINUE TO MONITOR.
[2021-05-21] MEDS: VANCOMYCIN 1,500 MG in DEXTROSE 5% 500 ML IV SCH (12:40)
[2021-05-21] MEDS: NON ADHERENT DRESSING TP SCH (12:41)
--- NOTE | 2021-05-21 13:30 | NUR ---
DR COHEN AT BEDSIDE EXAMINING PT
--- NOTE | 2021-05-21 13:48 | NUR ---
PICC LINE NURSE CALLED. WAITING FOR ETA FROM
--- NOTE | 2021-05-21 14:37 | NUR ---
NO EVIDENCE OF PULMONARY DISTRESS NOTED EQUAL CHEST RISE ENDOTRACHEAL SUCTION FOR SMALL THIN YELLOW SECRETIONS AIRWAY PATENT
--- NOTE | 2021-05-21 16:00 | NUR ---
PT CLEANED, REPOSITIONED.
--- NOTE | 2021-05-21 17:55 | NUR ---
RESTING WELL GOOD CHEST RISE ENDOTRACHEAL SUCTION FOR LARGE THIN YELLOW SECRETIONS AIRWAY PATENT
[2021-05-21] MEDS ORDERED: fentaNYL citrate 1 MG in NACL 0.9% 80 ML IV PRN (18:00)
--- NOTE | 2021-05-21 18:14 | NUR ---
PAGED DR SOLIS FOR ORDERS TO CONTINUE SEDATION VACATION. PT OFF SEDATION SINCE 1330. NO MOVEMENT NOTED.
[2021-05-21] MEDS ORDERED: DEXMEDETOMIDINE HCL 400 MCG in NACL 0.9% 96 ML IV PRN (18:20)
--- NOTE | 2021-05-21 18:34 | NUR ---
RECEIVED CALL FROM JEANNETTE, ORDERS TO START PT ON PRECEDEX
[2021-05-21] MEDS: FLUCONAZOLE 200 MG/NS PREMIX 100 ML IV SCH (18:54)
--- NOTE | 2021-05-21 19:11 | NUR ---
REPORT GIVEN TO PM SHIFT FOR CONTINUITY OF CARE
--- NOTE | 2021-05-21 19:16 | NUR ---
RECEIVED REPORT FROM TIFFANY REEVES FOR CONTINUITY OF CARE. ETT TO VENT A/C VC FIO2 @40%, VT @500, RATE @16, AND PEEP @8. RIJ CENTRAL LINE IN PLACE, PATENT AND INTACT, INFUSING PRECEDEX @0.2 MCG/KG/HR, LEVOPHED @10 MCG/MIN, D5 @100 ML/HR, AND VASOPRESSIN @0.01 UNITS/MIN. RT NARE NGT, PLACEMENT VERIFIED VIA AUSCULTATION, CONNECTED TO FEEDING RUNNING @30 ML/HR WITH 50ML WATER FLUSH Q6H. CHEST TUBE IN PLACE. F/C IN PLACE DRAINING TO GRAVITY. SKIN NOT INTACT, SEE WOUND ASSESSMENT. INITIAL ASSESSMENT COMPLETED. SAFETY MEASURES IN PLACE. BED IN LOWEST POSITION WITH CALL LIGHT IN REACH. WILL CONTINUE TO MONITOR.
--- NOTE | 2021-05-21 21:00 | NUR ---
SCHEDULED MEDS ADMINISTERED ORDERED. NADR NOTED. TOLERATED WELL. WILL CONTINUE TO MONITOR.
--- NOTE | 2021-05-21 23:10 | NUR ---
PT TEMP OBSERVED @102.2. PRN TYLENOL ADMINISTERED ORDERED. COOLING MEASURES IN PLACE. SAFETY MEASURES IN PLACE. WILL CONTINUE TO MONITOR.
[2021-05-22] VITALS (25 sets, daily range): BP systolic 94–150; BP diastolic 41–76
[2021-05-22] MEDS: DEXTROSE 5% 1,000 ML IV SCH ×3 (00:35→18:56)
[2021-05-22] MEDS: ALBUTEROL SULFATE/IPRATROPIU 3 ML SOL IH SCH ×3 (01:00→19:00)
--- NOTE | 2021-05-22 02:10 | NUR ---
PT OBSERVED. NO SIGNS OF DISTRESS NOTED AT THIS TIME. VSS. TEMP STILL BEING MONITORED, CURRENTLY @99.5. SAFETY MEASURES IN PLACE. WILL CONTINUE TO MONITOR.
[2021-05-22] MEDS ORDERED: VASOPRESSIN 20 UNITS/ML VIAL ONE (02:45)
[2021-05-22] MEDS: VASOPRESSIN 20 UNITS in NACL 0.9% 250 ML IV SCH (02:56)
--- NOTE | 2021-05-22 04:13 | NUR ---
AM CARE, ORAL CARE, AND BETO CARE PROVIDED. TOLERATED WELL. VSS. WILL CONTINUE TO MONITOR.
[2021-05-22] MEDS: NOREPINEPHRINE 8 MG in DEXTROSE 5% 250 ML IV PRN ×2 (06:20→21:00)
--- NOTE | 2021-05-22 06:47 | NUR ---
RECEIVED CALL FROM PICC LINE NURSE JESSEE. INFORMED THAT HE WILL BE ARRIVING AT 0700 FOR PICC LINE PLACEMENT.
--- NOTE | 2021-05-22 07:14 | NUR ---
PICC LINE NURSE JESSEE AT BEDSIDE.
--- NOTE | 2021-05-22 07:14 | NUR ---
GAVE REPORT AT BEDSIDE TO DAYSHIFT RN FOR CONTINUITY OF CARE.
[2021-05-22 07:26] LABS: MAGNESIUM 2.2 mg/dL (1.8-2.4); PHOSPHORUS 1.9 mg/dL (2.5-4.9)
[2021-05-22 07:30] LABS: ANION GAP 5.2 (8-16); POTASSIUM 4.2 mmol/L (3.5-5.1)
--- NOTE | 2021-05-22 07:30 | NUR ---
REPORT RECEIVED FROM JA RN.
--- NOTE | 2021-05-22 08:30 | NUR ---
PICC LINE PLACE BY LALA HOOKS. PATIENT TOLERATED. CXR COMPLETE. PATIENT UNRESPONSIVE TO PAINFUL STIMULI. PUPILS 4MM REACTIVE TO LIGHT. ETT TO VERONIQUE AC FIO2 40/VT400/RATE 16/ PEEP 5. ANTERIOR/LATERAL BREATH SOUNDS COARSE. RIGHT CHEST TUBE TO -20CM SUCTION. NO AIR LEAK NOTED. SAO2 90'S. BOWEL SOUNDS HYPOACTIVE. NGT RIGHT IN PLACE. NO RISIDUAL. RESTARTED NEPR TF AT 30CC/HR. RAMÍREZ IN PLACE WITH YELLOW URINE. DRESSINGS INTACT TO BILAT. LOWER EXTREMETIES. RIGHT IJ TLC IN PLACE WITH LEVO AT 14MCG/KG/MIN, VASOPRESSIN AT 0.01UNITS/HR. D5 AT 100ML/HR.
--- NOTE | 2021-05-22 08:30 | NUR ---
LEVOPHED DECREASED TO 12MCG/KG/MIN. BP STABLE.
[2021-05-22] MEDS: MEROPENEM 1,000 MG in NACL 0.9% 50 ML IV SCH ×2 (09:00→21:00)
[2021-05-22] MEDS: ASPIRIN 81 MG TAB.CHEW PO SCH (09:00)
[2021-05-22] MEDS ORDERED: POTASSIUM PHOSPHATE 30 MM in NACL 0.9% 250 ML IV SCH (10:00)
--- NOTE | 2021-05-22 10:00 | NUR ---
LEVO DECREASED TO 10MCG/KG/MIN. BP 133/76
[2021-05-22 10:39] LABS: BASOPHILS # (AUTO) 0.1 K/uL (0.00-0.22); BASOPHILS % (AUTO) 0.3 % (0.0-2.0); EOSINOPHILS # (AUTO) 0.1 K/uL (0-0.4); EOSINOPHILS % (AUTO) 0.7 % (0.0-4.0); HEMATOCRIT 36.8 % (36-52); LYMPHOCYTES % (AUTO) 5.1 % (20.5-51.1); MEAN CORPUSCULAR HEMOGLOBIN 23 pg (27-31); MEAN CORPUSCULAR HGB CONC 30 g/dL (33-37); MEAN CORPUSCULAR VOLUME 78.3 fL (80-94); MONOCYTES # (AUTO) 0.9 K/uL (0.8-1.0); MONOCYTES % (AUTO) 4.6 % (1.7-9.3); NEUTROPHILS # (AUTO) 17.1 K/uL (1.8-7.7); NEUTROPHILS % (AUTO) 89.3 % (42.2-75.2); PLATELET COUNT (AUTO) 129 K/uL (140-450); RED CELL DISTRIBUTION WIDTH 20.2 % (11.6-13.7); WHITE BLOOD COUNT (AUTO) 19.2 K/uL (4.8-10.8)
[2021-05-22] MEDS: VANCOMYCIN 1,500 MG in DEXTROSE 5% 500 ML IV SCH (12:00)
--- NOTE | 2021-05-22 12:40 | NUR ---
05/22/21 RD FOLLOW UP COMPLETED PLEASE REFER TO NUTRITION ASSESSMENT UNDER CARE ACTIVITY FOR ESTIMATED NUTRITIONAL NEEDS. 1. CONTINUE NEPRO @ 30 ML/HR TOLERATED -WATER FLUSH: 100 ML Q6H PER MD -PROVIDES 1296 KCAL AND 58 GM PROTEIN -WITH D5W, PT RECEIVES ~ 1800 KCAL AND 58 GM PROTEIN MEETING 88% KCAL AND 100% PROTEIN NEEDS 2. MONITOR NUTRITION-RELATED LAB VALUES 3. RD TO FOLLOW-UP 2-3 DAYS, HIGH RISK LEESA ESPINOSA RD
--- NOTE | 2021-05-22 13:00 | NUR ---
BP STABLE. VASOPRESSIN OFF.
[2021-05-22] MEDS: ACETAMINOPHEN 325 MG TAB PO PRN (13:23)
[2021-05-22] MEDS: NON ADHERENT DRESSING TP SCH (13:23)
--- NOTE | 2021-05-22 16:00 | NUR ---
BP 104/54 MEAN 73. LEVO DECREASED TO 8MCG/KG/MIN.
[2021-05-22] MEDS: FLUCONAZOLE 200 MG/NS PREMIX 100 ML IV SCH (19:00)
--- NOTE | 2021-05-22 19:15 | NUR ---
REPORT GIVE TO THE NIGHT RN.
--- NOTE | 2021-05-22 19:18 | NUR ---
RECEIVED REPORT FROM TIFFANY RN FOR CONTINUITY OF CARE. ETT TO VENT A/C VC FIO2 @40%, VT @500, RATE @16, AND PEEP @8. CARIN PICC IN PLACE, PATENT AND INTACT, LEVOPHED @8 MCG/MIN, AND D5 @100 ML/HR. RT NARE NGT, PLACEMENT VERIFIED VIA AUSCULTATION, CONNECTED TO FEEDING RUNNING @30 ML/HR WITH 50ML WATER FLUSH Q6H. CHEST TUBE IN PLACE. F/C IN PLACE DRAINING TO GRAVITY. SKIN NOT INTACT, SEE WOUND ASSESSMENT. INITIAL ASSESSMENT COMPLETED. SAFETY MEASURES IN PLACE. BED IN LOWEST POSITION WITH CALL LIGHT IN REACH. WILL CONTINUE TO MONITOR.
[2021-05-22] MEDS ORDERED: NOREPINEPHRINE 4 MG/4 ML VIAL IV ONE (20:41)
[2021-05-22] MEDS ORDERED: DEXMEDETOMIDINE HCL 100 MCG/ML 2 ML VIAL IV ONE (20:44)
--- NOTE | 2021-05-22 21:06 | NUR ---
ADMINISTERED SCHEDULED MEDS ORDERED. NADR NOTED. NO SIGNS OF DISTRESS NOTED. SAFETY MEASURES IN PLACE. WILL CONTINUE TO MONITOR.
--- NOTE | 2021-05-22 23:12 | NUR ---
PT TEMP OBSERVED @101.7. PRN MOTRIN ADMINISTERED ORDERED. COOL MEASURES IMPLEMENTED. SAFETY MEASURES IN PLACE. WILL CONTINUE TO MONITOR.
[2021-05-22] MEDS ORDERED: IBUPROFEN 400 MG TAB ONE (23:43)
[2021-05-23] VITALS (28 sets, daily range): BP systolic 94–150; BP diastolic 50–89
[2021-05-23] MEDS: IBUPROFEN 600 MG TAB PO PRN
[2021-05-23] MEDS: ALBUTEROL SULFATE/IPRATROPIU 3 ML SOL IH SCH ×4 (00:21→20:23)
[2021-05-23] MEDS: DEXTROSE 5% 1,000 ML IV SCH ×2 (02:18→10:18)
--- NOTE | 2021-05-23 02:45 | NUR ---
PT OBSERVED. NO DISTRESS NOTED AT THIS TIME. VSS. TEMP @98.6. SAFETY MEASURES IN PLACE. WILL CONTINUE TO MONITOR.
--- NOTE | 2021-05-23 04:27 | NUR ---
MORNING CARE, ORAL CARE VIA VAP KIT, AND BETO CARE GIVEN. NO DISTRESS NOTED AT THIS TIME. VSS. WILL CONTINUE TO MONITOR.
[2021-05-23 06:42] LABS: BASOPHILS # (AUTO) 0.1 K/uL (0.00-0.22); BASOPHILS % (AUTO) 0.5 % (0.0-2.0); EOSINOPHILS # (AUTO) 0.2 K/uL (0-0.4); EOSINOPHILS % (AUTO) 1.7 % (0.0-4.0); HEMATOCRIT 32.4 % (36-52); LYMPHOCYTES # (AUTO) 0.8 K/uL (2.0-11.5); LYMPHOCYTES % (AUTO) 5.7 % (20.5-51.1); MEAN CORPUSCULAR HEMOGLOBIN 24 pg (27-31); MEAN CORPUSCULAR HGB CONC 31 g/dL (33-37); MEAN CORPUSCULAR VOLUME 76.6 fL (80-94); MONOCYTES # (AUTO) 0.7 K/uL (0.8-1.0); NEUTROPHILS # (AUTO) 11.7 K/uL (1.8-7.7); NEUTROPHILS % (AUTO) 87.1 % (42.2-75.2); PLATELET COUNT (AUTO) 126 K/uL (140-450); RED BLOOD CELL COUNT(AUTO) 4.23 MIL/uL (4.20-6.10); RED CELL DISTRIBUTION WIDTH 19.3 % (11.6-13.7); WHITE BLOOD COUNT (AUTO) 13.4 K/uL (4.8-10.8)
--- NOTE | 2021-05-23 07:16 | NUR ---
GAVE REPORT AT BEDSIDE TO DAYSHIFT RN FOR CONTINUITY OF CARE.
--- NOTE | 2021-05-23 07:30 | NUR ---
RECEIVED REPORT FROM JA REEVES.
[2021-05-23 08:06] LABS: ANION GAP 5.9 (8-16); CARBON DIOXIDE 37.2 mmol/L (21-32); POTASSIUM 4.1 mmol/L (3.5-5.1)
[2021-05-23 08:12] LABS: MAGNESIUM 2.1 mg/dL (1.8-2.4); PHOSPHORUS 2.8 mg/dL (2.5-4.9)
--- NOTE | 2021-05-23 08:20 | NUR ---
PATIENT RECEIVING NO SEDATION. WILL OCCASIONALLY OPEN EYES BUT WILL NOT FOLLOW COMMANDS. NO RESPONSE TO PAINFUL STIMULI. PUPILS 4MM AND REACTIVE. CARIN PICC LINE IN PLACE WITH LEVO AT 8MCG/KG/MIN, D5 AT 125ML/HR. ETT TO VENT AC MODE FIO2 .35/VT 400/ RATE 16/ PEEP 5. SAO2 92%. ANTERIOR/LATERAL LUNG SOUNDS LEFT WITH CRACKLES, RIGHT COARSE. RIGHT LATERAL CHEST TUBE TO SUCTION NO AIR LEAK NOTED. HYPOACTIVE BOWEL SOUNDS. ABDOMEN SOFT. NGT IN PLACE WITH NEPRO AT 30CC/HR. RISIDUAL 60CC. RAMÍREZ IN PLACE WITH YELLOW URINE.
[2021-05-23] MEDS: MEROPENEM 1,000 MG in NACL 0.9% 50 ML IV SCH ×2 (08:39→20:55)
[2021-05-23] MEDS: ASPIRIN 81 MG TAB.CHEW PO SCH (08:40)
--- NOTE | 2021-05-23 11:15 | NUR ---
TRANSPORTED PATIENT FOR CT OF HEAD. TOLERATED WELL. AWAITING RESULTS.
--- NOTE | 2021-05-23 11:50 | NUR ---
RECEIVED CALL FROM RADIOLOGIST STATING CT SHOWS RIGHT PARIETAL BLEED 1.5CM WITH BLOOD IN VENTRICLE. RIGHT OCCIPITAL CVA. CALLED DR. WEIR WITH RESULTS. DR SAN PAGED BY OFFICE.
--- NOTE | 2021-05-23 12:30 | NUR ---
DR. SAN AT BEDSIDE. WILL TRANSFER PATIENT TO [facility]. DISCUSSED RASH NOTED ON CHEST AND UPPER ABDOMEN. NO ORDERS RECEIVED.
[2021-05-23] MEDS: VANCOMYCIN 1,500 MG in DEXTROSE 5% 500 ML IV SCH (13:00)
[2021-05-23] MEDS: NON ADHERENT DRESSING TP SCH (13:00)
--- NOTE | 2021-05-23 13:30 | NUR ---
DECREASED LEVO TO 6MCG/KG/MIN. MAP80 113/63
--- NOTE | 2021-05-23 14:49 | NUR ---
DC PLANNING: ORDER RECEIVED FOR HLOC RELATED TO FINDING OF ACUTE INFARCT. CLINICAL PACKET AND ORDER [facility] THEY DON'T ACCEPT VERBAL REQUESTS, PHONE [phone], FAX [phone]. WILL FOLLOW. Addendum: 05/29/21 at 1342 by Shila Arceo CM Late Entry: 05/27/21: Per CM Director, was discussed with Wednesday 05/24 HLOC not needed. Today discussed in [facility] emergency department and per Dr Aguilera verified HLOC not needed. Per MD notes 05/24/21 "neurology reported no longer need transfer to higher level of care". Addendum: 06/05/21 at 1703 by Kay Gonzalez RN LATE ENTRY 06/04/21 DC PLANNING PATIENT HAS AN ORDER FOR LTAC EVAL , FAXED TO [facility] AND [place] [phone].CM TO FOLLOW Addendum: 06/06/21 at 1250 by Kay Gonzalez RN DC PLANNING: RECEIVED A CALL FROM NAYANA AT [facility] REQUESTED PATIENT'S DECISION MAKER AND DC PLAN AFTER [facility]. PATIENT HAS NO ONE TO MAKE A DECISION AND HOMELESS. PER NAYANA WILL DISCUSS WITH ADMIN AND CALL BACK. CM TO FOLLOW Addendum: 06/11/21 at 1042 by Kay Gonzalez RN DC PLANNING: RECEIVED A CALL FROM DARINEL AT [facility], ACCEPTED PATIENT AWAITING FOR ROOM NUMBER. CM TO FOLLOW Addendum: 06/12/21 at 1150 by Kay Gonzalez RN DC PLANNING PATIENT IS GOING TO [facility] ROOM # 1 C NUMBER TO GIVE REPORT [phone] [facility] WITH RT TRANSITION MGR RN TIME 3 PM. NOTIFIED BECKA REEVES. CM TO FOLLOW
--- NOTE | 2021-05-23 15:30 | NUR ---
TEMP 100.8 AXILLARY. TYLENOL 650MG GIVEN. LEVO DECREASED TO 4MCG/KG.MIN MAP 112 BP 150/89
--- NOTE | 2021-05-23 19:15 | NUR ---
Received Bedside report from July, SALES REVIEW CLERK. Check IV pump & Drips ( Levophed) , Vent settings & NO Restraints noted on patient. Dressings intact on both lower Legs.
--- NOTE | 2021-05-23 19:25 | NUR ---
REPORT GIVEN TO NIGHT RN.
[2021-05-23] MEDS: FLUCONAZOLE 200 MG/NS PREMIX 100 ML IV SCH (20:02)
--- NOTE | 2021-05-23 20:05 | NUR ---
Due IVPB ( Diflucan 1st Dose) given, will monitor for any signs & symptoms of adverse reactions.
--- NOTE | 2021-05-23 20:45 | NUR ---
Due meds given, tolerated well, will continue to monitor for any signs & symptoms of any adverse reactions.
[2021-05-23] MEDS: ACETAMINOPHEN 325 MG TAB PO PRN (21:38)
[2021-05-24] VITALS (26 sets, daily range): BP systolic 90–155; BP diastolic 41–99
--- NOTE | 2021-05-24 00:05 | NUR ---
No pain or discomfort noted at this time, will continue to monitor Vital signs .
[2021-05-24] MEDS: ALBUTEROL SULFATE/IPRATROPIU 3 ML SOL IH SCH ×4 (00:10→20:57)
[2021-05-24] MEDS: DEXTROSE 5% 1,000 ML IV SCH ×4 (02:45→23:00)
--- NOTE | 2021-05-24 04:30 | NUR ---
Total care given, pericare done, Change gown, linen, Chaulks & Bedsheets, made clean, dry & comfortable.
[2021-05-24 05:24] LABS: BASOPHILS # (AUTO) 0.1 K/uL (0.00-0.22); BASOPHILS % (AUTO) 0.6 % (0.0-2.0); EOSINOPHILS # (AUTO) 0.2 K/uL (0-0.4); EOSINOPHILS % (AUTO) 1.4 % (0.0-4.0); HEMATOCRIT 34.8 % (36-52); LYMPHOCYTES # (AUTO) 0.9 K/uL (2.0-11.5); LYMPHOCYTES % (AUTO) 6.5 % (20.5-51.1); MEAN CORPUSCULAR HEMOGLOBIN 24 pg (27-31); MEAN CORPUSCULAR HGB CONC 32 g/dL (33-37); MEAN CORPUSCULAR VOLUME 74.2 fL (80-94); MONOCYTES # (AUTO) 0.7 K/uL (0.8-1.0); MONOCYTES % (AUTO) 5.2 % (1.7-9.3); NEUTROPHILS # (AUTO) 11.7 K/uL (1.8-7.7); NEUTROPHILS % (AUTO) 86.3 % (42.2-75.2); PLATELET COUNT (AUTO) 163 K/uL (140-450); RED BLOOD CELL COUNT(AUTO) 4.69 MIL/uL (4.20-6.10); RED CELL DISTRIBUTION WIDTH 19.6 % (11.6-13.7); WHITE BLOOD COUNT (AUTO) 13.6 K/uL (4.8-10.8)
[2021-05-24 05:30] LABS: ANION GAP 6.7 (8-16); CARBON DIOXIDE 36.6 mmol/L (21-32); CREATININE 0.9 mg/dL (0.6-1.3); POTASSIUM 4.3 mmol/L (3.5-5.1)
[2021-05-24 05:38] LABS: MAGNESIUM 1.8 mg/dL (1.8-2.4)
--- NOTE | 2021-05-24 07:15 | NUR ---
REPORT RECEIVED FROM PIE CHEF RN.
--- NOTE | 2021-05-24 07:30 | NUR ---
RECEIVED REPORT FROM JA REEVES.
[2021-05-24] MEDS: MEROPENEM 1,000 MG in NACL 0.9% 50 ML IV SCH ×2 (08:28→21:01)
--- NOTE | 2021-05-24 08:30 | NUR ---
PATIENT OPENS EYES. DOES NOT FOLLOW COMMANDS. NO RESPONSE TO PAIN. PUPILS 4MM SLUGGISH TO REACT TO LIGHT. CARIN PICC LINE WITH LEVO AT 4MCG/KG/MIN, D5 AT 125ML/HR. ETT TUBE TO VENT FIO2 .35/ VT 400/ RATE 16/ PEEP 5. ANTERIOR/LATERAL BREATH SOUND DIMINISHED BILATERALLY. SAO2 92%. RIGHT LATERAL CHEST TUBE TO -20CM SUCTION. INTERMITTENT AIR LEAK NOTED. SEROUS DRAINAGE. BOWEL SOUNDS ACTIVE. ABDOMEN SOFT. NEPRO AT 30CC/HR. RISIDUAL 200CC BROWN LIQUID. TF PLACED ON HOLD. DR. MACHADO INFORMED AND ORDER RECEIVED. RAMÍREZ IN PLACE WITH YELLOW URINE.
--- NOTE | 2021-05-24 11:00 | NUR ---
[facility].
[2021-05-24] MEDS ORDERED: FAMOTIDINE 20 MG/2 ML VIAL ONE (11:21)
--- NOTE | 2021-05-24 12:10 | NUR ---
WOUND CARE RE-EVALUATION NOTE: NO NEW SKIN BREAKS CHRONIC STASIS ULCERS TO BLE. MULTIPLE PARTIAL THICKNESS SKIN LOSS WITH LARGEST TO LLE 3X2X0.1CM AND RLE 4X3X0.1CM. WOUND BEDS MOIST, PALE PINK, NO ODOR AFER CLEANSED WITH NS, WOUND EDGE FLAT, BETO WOUND SKIN DRY SCALY.WILL CONTINUE TO CLEANSE WITH WOUND CARE SOLUTION, PAT DRY, APPLY XEROFORM DRESSING, COVER WITH DRY DRESSING, SECURE WITH TAPE 3X/WEEK ON MWF AND PRN IF SOILING.
[2021-05-24] MEDS: VANCOMYCIN 1,500 MG in DEXTROSE 5% 500 ML IV SCH (12:32)
[2021-05-24] MEDS: NON ADHERENT DRESSING TP SCH (13:12)
--- NOTE | 2021-05-24 16:00 | NUR ---
SPUTUM COLLECTED AND SENT TO LAB FOR CULTURE.
--- NOTE | 2021-05-24 16:00 | NUR ---
RISIDUAL DOWN TO 30CC. RESTARTED TF AT 30CC/HR. TEMP 99.1 TYLENOL GIVEN PER ORDER.
[2021-05-24] MEDS: ACETAMINOPHEN 325 MG TAB PO PRN ×2 (16:08→22:00)
--- NOTE | 2021-05-24 19:18 | NUR ---
Received report from July, AM AUTOMOTIVE TIRE WORKER. Some Changes noted, Levophed drip down to 3mcg/min, Nephro feeding which was earlier Held ( due to High residual) was restarted, Chahal 1150ml out, BM x1 .
[2021-05-24] MEDS: FLUCONAZOLE 200 MG/NS PREMIX 100 ML IV SCH (19:48)
--- NOTE | 2021-05-24 21:00 | NUR ---
Due meds given as ordered, will monitor for any signs of adverse reactions.
[2021-05-24] MEDS: FAMOTIDINE 20 MG/2 ML VIAL IV SCH (21:02)
--- NOTE | 2021-05-24 23:19 | NUR ---
No pain or discomfort noted at this time. Turn & reposition q2h as ordered. Willl continue to monitor Vital signs.
[2021-05-25] VITALS (25 sets, daily range): BP systolic 66–160; BP diastolic 35–89
[2021-05-25] MEDS: ALBUTEROL SULFATE/IPRATROPIU 3 ML SOL IH SCH ×4 (00:13→20:40)
[2021-05-25] MEDS ORDERED: NOREPINEPHRINE 4 MG/4 ML VIAL IV ONE (04:07)
[2021-05-25 06:22] LABS: BASOPHILS # (AUTO) 0.1 K/uL (0.00-0.22); BASOPHILS % (AUTO) 0.4 % (0.0-2.0); EOSINOPHILS # (AUTO) 0.2 K/uL (0-0.4); EOSINOPHILS % (AUTO) 1.3 % (0.0-4.0); HEMATOCRIT 29.6 % (36-52); HEMOGLOBIN 9.2 g/dL (12.0-18.0); LYMPHOCYTES # (AUTO) 0.6 K/uL (2.0-11.5); LYMPHOCYTES % (AUTO) 4.2 % (20.5-51.1); MEAN CORPUSCULAR HEMOGLOBIN 24 pg (27-31); MEAN CORPUSCULAR HGB CONC 31 g/dL (33-37); MEAN CORPUSCULAR VOLUME 75.8 fL (80-94); MONOCYTES # (AUTO) 0.7 K/uL (0.8-1.0); NEUTROPHILS # (AUTO) 13.1 K/uL (1.8-7.7); NEUTROPHILS % (AUTO) 89.1 % (42.2-75.2); PLATELET COUNT (AUTO) 159 K/uL (140-450); RED BLOOD CELL COUNT(AUTO) 3.91 MIL/uL (4.20-6.10); RED CELL DISTRIBUTION WIDTH 19.5 % (11.6-13.7); WHITE BLOOD COUNT (AUTO) 14.7 K/uL (4.8-10.8)
[2021-05-25 06:43] LABS: ANION GAP 6.9 (8-16); CARBON DIOXIDE 36.3 mmol/L (21-32); CREATININE 0.8 mg/dL (0.6-1.3); POTASSIUM 4.2 mmol/L (3.5-5.1)
--- NOTE | 2021-05-25 07:30 | NUR ---
RECEIVED REPORT FROM LUDA RN , PT INBED WITH HOR UP 30DEGREE ETT TO VENT AC 35 RATE 16 REEP 5 PT LIE IN BED NO MOVING TV FLUID TNFUSING TK186TC/HR, RAMÍREZ CATH DRAIN LIGHT SUBHA URINS.
[2021-05-25 07:32] LABS: MAGNESIUM 1.8 mg/dL (1.8-2.4); PHOSPHORUS 3.4 mg/dL (2.5-4.9)
[2021-05-25] MEDS: MEROPENEM 1,000 MG in NACL 0.9% 50 ML IV SCH (08:03)
[2021-05-25] MEDS: FAMOTIDINE 20 MG/2 ML VIAL IV SCH ×2 (08:03→20:10)
--- NOTE | 2021-05-25 10:00 | NUR ---
TEMP 101.2 , TYLENOL GIVEN ORDERED, COLD SPONGE AND ICE PACT GIVEN
[2021-05-25] MEDS: VANCOMYCIN 1,500 MG in DEXTROSE 5% 500 ML IV SCH (12:00)
--- NOTE | 2021-05-25 12:00 | NUR ---
SEEN BY DR. FISHER NO ORDER RECEIVED.
--- NOTE | 2021-05-25 12:08 | NUR ---
SEEN BY DR CHEN, ORDER RECEIVED.
--- NOTE | 2021-05-25 12:11 | NUR ---
(05/25/21) RD FOLLOW UP COMPLETED PLEASE REFER TO NUTRITION PROGRESS NOTE UNDER CARE ACTIVITY FOR ESTIMATED NUTRITION NEEDS. RD RECOMMENDATIONS: 1. CONTINUE NEPRO @ 30 ML/HR TOLERATED -WATER FLUSH: 100 ML Q6H PER MD -PROVIDES 1296 KCAL AND 58 GM PROTEIN -WITH D5W, PT RECEIVES ~ 1800 KCAL AND 58 GM PROTEIN MEETING 88% KCAL AND 100% PROTEIN NEEDS 2. MONITOR NUTRITION-RELATED LAB VALUES 3. RD TO FOLLOW-UP 2-3 DAYS, HIGH RISK MAYRA DIAZ, , RDN
[2021-05-25] MEDS: NON ADHERENT DRESSING TP SCH (13:37)
[2021-05-25] MEDS: FLUCONAZOLE 200 MG/NS PREMIX 100 ML IV SCH (18:57)
--- NOTE | 2021-05-25 19:15 | NUR ---
Received report from ANNE Woodward PATIENT SERVICE SPECIALIST, all questions answered. Changes noted Levophed Drip restarted @1mcg/min, D5W down @50ml/hr, Still NO bed available to transfer patient to a Higher Level of Care.
--- NOTE | 2021-05-25 19:30 | NUR ---
REPORT GIVEN TO LATRICE FOR CONTINUITY OF CARE
[2021-05-25] MEDS: DEXTROSE 5% 1,000 ML IV SCH (19:47)
--- NOTE | 2021-05-25 21:00 | NUR ---
Due medications given, tolerated well, will continue to monitor for any signs & symptoms of adverse reactions.
[2021-05-26] VITALS (23 sets, daily range): BP systolic 87–160; BP diastolic 45–109
--- NOTE | 2021-05-26 | NUR ---
No pain or discomfort noted at this time, patient lying in bed quietly, Turn & reposition q2h, will continue to monitor Vital Signs as ordered.
[2021-05-26] MEDS: ALBUTEROL SULFATE/IPRATROPIU 3 ML SOL IH SCH ×4 (00:15→19:24)
[2021-05-26] MEDS: DEXTROSE 5% 1,000 ML IV SCH ×4 (02:18→18:18)
--- NOTE | 2021-05-26 04:15 | NUR ---
Total care given, pericare done, tolerated well, changed gown, linen, & Chaulks, made clean, Dry & comfortable. No pain or Discomfort noted. VS stable with Levophed Drip @3mcg/min. Cold compress re-inforce.
[2021-05-26 06:32] LABS: BASOPHILS # (AUTO) 0.1 K/uL (0.00-0.22); BASOPHILS % (AUTO) 0.5 % (0.0-2.0); EOSINOPHILS # (AUTO) 0.3 K/uL (0-0.4); EOSINOPHILS % (AUTO) 1.6 % (0.0-4.0); HEMATOCRIT 30.2 % (36-52); HEMOGLOBIN 9.5 g/dL (12.0-18.0); LYMPHOCYTES # (AUTO) 0.9 K/uL (2.0-11.5); MEAN CORPUSCULAR HEMOGLOBIN 23 pg (27-31); MEAN CORPUSCULAR HGB CONC 31 g/dL (33-37); MEAN CORPUSCULAR VOLUME 74.6 fL (80-94); MONOCYTES # (AUTO) 0.9 K/uL (0.8-1.0); MONOCYTES % (AUTO) 5.2 % (1.7-9.3); NEUTROPHILS # (AUTO) 15.2 K/uL (1.8-7.7); PLATELET COUNT (AUTO) 229 K/uL (140-450); RED BLOOD CELL COUNT(AUTO) 4.05 MIL/uL (4.20-6.10); RED CELL DISTRIBUTION WIDTH 20.1 % (11.6-13.7); WHITE BLOOD COUNT (AUTO) 17.3 K/uL (4.8-10.8)
[2021-05-26 06:57] LABS: ANION GAP 5.7 (8-16); CARBON DIOXIDE 37.3 mmol/L (21-32); CREATININE 0.7 mg/dL (0.6-1.3); NEUTROPHILS % (AUTO) 87.7 % (42.2-75.2)
--- NOTE | 2021-05-26 07:14 | NUR ---
Report given to ANNE Woodward TOUR OPERATOR, for continuity of care. All questions answered.
[2021-05-26 07:16] LABS: MAGNESIUM 1.7 mg/dL (1.8-2.4); PHOSPHORUS 3.5 mg/dL (2.5-4.9)
--- NOTE | 2021-05-26 07:30 | NUR ---
RECEIVED REPORT FROM LUDA ROSS IS ETT TO VENT [id number]. ngt feeding 30ml/hr IV FLUID RIOO LINE UPPER ARM INFUSSING D5W AT 50ML/HR AND LEVOPHED .RAMÍREZ CATH DRAIN SUBHA URINE.
[2021-05-26] MEDS: FAMOTIDINE 20 MG/2 ML VIAL IV SCH ×2 (08:26→21:20)
--- NOTE | 2021-05-26 10:00 | NUR ---
REPOSITION ORAL CARE AND SKIN CARE GIVEN.
[2021-05-26] MEDS: VANCOMYCIN 1,500 MG in DEXTROSE 5% 500 ML IV SCH (12:00)
[2021-05-26] MEDS: NON ADHERENT DRESSING TP SCH (13:00)
--- NOTE | 2021-05-26 13:25 | NUR ---
SEEN BY DR CHEN AT BED SIDE , INCREASE FIO2 TO 45%.
--- NOTE | 2021-05-26 13:30 | NUR ---
THYLENOL GAVE FOR ELEVATED BODY TEMP.
[2021-05-26] MEDS: FLUCONAZOLE 200 MG/NS PREMIX 100 ML IV SCH (18:08)
--- NOTE | 2021-05-26 18:15 | NUR ---
LAB CALL PT HAS MRSA IN SPUTUM , DR. ALLEN WAS PAGE.
--- NOTE | 2021-05-26 19:20 | NUR ---
REPORT TO DR. NICOLE PT HAS MRSA IN SPUTUM. ,AND SHE SAID CHEST X-RAY PNEUMO THORAX IS WORST, WILL REPORT TO PULMONARY .
--- NOTE | 2021-05-26 19:30 | NUR ---
GIVE REPORT TO YAMILE FOR CONTINUE CARE.
--- NOTE | 2021-05-26 21:28 | NUR ---
patient alert able to track eyes opened vitals signs in normal limits not complaining of pain sr 89 on the monitor //DiCaprio RN
--- NOTE | 2021-05-26 21:35 | NUR ---
ORAL CARE PROVIDE REPOSITION TO THE RIGHT SIDE NO SIGNS OF PAIN VITALS SIGNS IN NORMAL LIMITS //DiCaprio RN
[2021-05-27] VITALS (27 sets, daily range): BP systolic 80–150; BP diastolic 38–86
[2021-05-27] MEDS: ALBUTEROL SULFATE/IPRATROPIU 3 ML SOL IH SCH ×4 (00:49→20:15)
[2021-05-27] MEDS: DEXTROSE 5% 1,000 ML IV SCH ×2 (02:25→11:45)
--- NOTE | 2021-05-27 02:56 | NUR ---
PATIENT SLEEPING AT THIS TIME VITALS SIGNS IN NORMAL LIMITS NOT SIGNS OF PAIN TOLERATED VERY WELL HIS BATH AND ORAL CARE //DiCaprio RN
--- NOTE | 2021-05-27 05:18 | NUR ---
PATIENT SLEEPING VITALS SIGNS IN NORMALS LIMITS ST [address] ON [place] DRESSING CHANGED AT LEGS NOT SEDATION , NOREPINEPHRIN OFF BP 90/54 MAP 66 HEMODINAMICLY STABLE //DiCaprio RN
[2021-05-27 05:48] LABS: BASOPHILS % (AUTO) 0.5 % (0.0-2.0); EOSINOPHILS # (AUTO) 0.1 K/uL (0-0.4); EOSINOPHILS % (AUTO) 1.1 % (0.0-4.0); HEMOGLOBIN 11.1 g/dL (12.0-18.0); LYMPHOCYTES # (AUTO) 0.5 K/uL (2.0-11.5); LYMPHOCYTES % (AUTO) 5.9 % (20.5-51.1); MEAN CORPUSCULAR HEMOGLOBIN 24 pg (27-31); MEAN CORPUSCULAR HGB CONC 32 g/dL (33-37); MEAN CORPUSCULAR VOLUME 74.5 fL (80-94); MONOCYTES # (AUTO) 0.6 K/uL (0.8-1.0); MONOCYTES % (AUTO) 7.2 % (1.7-9.3); NEUTROPHILS # (AUTO) 7.2 K/uL (1.8-7.7); NEUTROPHILS % (AUTO) 85.3 % (42.2-75.2); PLATELET COUNT (AUTO) 173 K/uL (140-450); RED CELL DISTRIBUTION WIDTH 19.4 % (11.6-13.7); WHITE BLOOD COUNT (AUTO) 8.4 K/uL (4.8-10.8)
[2021-05-27 06:44] LABS: CARBON DIOXIDE 39.7 mmol/L (21-32); CREATININE 0.9 mg/dL (0.6-1.3); POTASSIUM 3.7 mmol/L (3.5-5.1)
--- NOTE | 2021-05-27 07:30 | NUR ---
RECEIVED REPORT FROM SEASONAL RECRUITER. PT OFF SEDATION. OPENS EYES, TRACKS . ABLE TO SQUEEZE HANDS WHEN PROMPTED. CARIN PICC LINE RUNNING D5 AT 50ML/HR, OFF PRESSORS. ETT TUBE TO VENT FIO2 35%/ VT 400/ RATE 16/ PEEP 5. RIGHT LATERAL CHEST TUBE TO -20CM SUCTION. INTERMITTENT AIR LEAK NOTED. SEROUS DRAINAGE. BOWEL SOUNDS ACTIVE. ABDOMEN SOFT. NEPRO AT 30CC/HR. RESIDUAL 80CC BROWN LIQUID. RAMÍREZ IN PLACE WITH YELLOW URINE.
--- NOTE | 2021-05-27 08:00 | NUR ---
TEMP 100.2, COOLING MEASURES STARTED
--- NOTE | 2021-05-27 08:50 | NUR ---
DUE MEDS GIVEN. ORAL CARE AND RAMÍREZ CARE DONE. TURNED AND REPOSITIONED
[2021-05-27] MEDS: ACETAMINOPHEN 325 MG TAB PO PRN ×2 (08:51→22:39)
[2021-05-27] MEDS: FAMOTIDINE 20 MG/2 ML VIAL IV SCH ×2 (08:51→21:00)
[2021-05-27 09:24] LABS: MAGNESIUM 1.7 mg/dL (1.8-2.4); PHOSPHORUS 4.1 mg/dL (2.5-4.9)
[2021-05-27] MEDS: FUROSEMIDE 20 MG/2 ML VIAL IVP SCH (09:32)
--- NOTE | 2021-05-27 10:00 | NUR ---
SBP 70-80, RESTARTED LEVOPHED 4MCG/MIN. WILL MONITOR
--- NOTE | 2021-05-27 12:00 | NUR ---
REMP 98.7, VS WNL, STILL ON LEVO 4MCG/MIN
[2021-05-27] MEDS: NON ADHERENT DRESSING TP SCH (12:32)
[2021-05-27] MEDS: VANCOMYCIN 1,500 MG in DEXTROSE 5% 500 ML IV SCH (12:32)
[2021-05-27] MEDS: ACETAZOLAMIDE SOD 250 MG TAB PO SCH ×2 (12:32→18:22)
--- NOTE | 2021-05-27 14:16 | NUR ---
NO DISTRESS NOTED AT THIS TIME. FLACC 0, AWAKENS TO VOICE
--- NOTE | 2021-05-27 15:00 | NUR ---
SEEN AND EXAMINE BY DR CHEN, CHANGED PEEP TO 0 Addendum: 05/27/21 at 1858 by Henrry Josue RN ALSO CHANGED SUCTION TO 30MMHG
--- NOTE | 2021-05-27 15:30 | NUR ---
CHEST TUBE DRESSING CHANGED
--- NOTE | 2021-05-27 15:58 | NUR ---
PEEP SET TO 0cmH2O PER FENCE POST CUTTER DUE TO PNEUMOTHORAX. NURSE AWARE. WILL CONTINUE TO MONITOR.
--- NOTE | 2021-05-27 16:27 | NUR ---
BETO CARE DONE, TURNED AND REPOSITIONED
[2021-05-27] MEDS: FLUCONAZOLE 200 MG/NS PREMIX 100 ML IV SCH (18:22)
--- NOTE | 2021-05-27 21:12 | NUR ---
PATIENT STABLE SLEEPING AT THIS TIME NOT COMPLAINING OF PAIN VITALS SIGNS IN NORMAL LIMITS ST [address] ORAL CARE WAS PROVIDE NOT SIGNS OF PAIN AT THIS TIME //Marito REEVES
[2021-05-28] VITALS (28 sets, daily range): BP systolic 85–156; BP diastolic 47–87
[2021-05-28] MEDS: ACETAZOLAMIDE SOD 250 MG TAB PO SCH ×4 (01:13→18:30)
[2021-05-28] MEDS: ALBUTEROL SULFATE/IPRATROPIU 3 ML SOL IH SCH ×4 (01:21→20:03)
[2021-05-28] MEDS ORDERED: NOREPINEPHRINE 4 MG/4 ML VIAL IV ONE (02:42)
[2021-05-28] MEDS: NOREPINEPHRINE 8 MG in DEXTROSE 5% 250 ML IV PRN (03:05)
--- NOTE | 2021-05-28 04:53 | NUR ---
PATIENT STABLE VITALS SIGNS IN NORMAL LIMITS BATH WAS GAVE AND ORAL CARE REPOSITION TO THE LEFT SIDE LEVO STILL AT THE SAME RATE //DiCaprio RN
--- NOTE | 2021-05-28 05:54 | NUR ---
PATIENT STABLE SLEEPING AT THIS TIME VITALS SIGNS IN NORMAL LIMITS SR 98 ON MONITOR //DiCaprio RN
[2021-05-28] MEDS: DEXTROSE 5% 1,000 ML IV SCH (07:10)
--- NOTE | 2021-05-28 07:30 | NUR ---
RECEIVED REPORT FROM BOARD LAYER. PT OFF SEDATION. OPENS EYES BUT DOES NOT TRACK AT THIS TIME. CARIN PICC LINE RUNNING D5 AT 50ML/HR, LEVOPHED 4MCG/MIN. ETT TUBE TO VENT FIO2 35%/ VT 400/ RATE 16/ PEEP 0. RIGHT LATERAL CHEST TUBE TO 30MMHG SUCTION. INTERMITTENT AIR LEAK NOTED. SEROUS DRAINAGE. BOWEL SOUNDS ACTIVE. ABDOMEN SOFT. NGT TO TUBE FEEDING. NEPRO AT 30CC/HR. RAMÍREZ IN PLACE WITH CLEAR YELLOW URINE.
[2021-05-28] MEDS: FUROSEMIDE 20 MG/2 ML VIAL IVP SCH (08:46)
[2021-05-28] MEDS: FAMOTIDINE 20 MG/2 ML VIAL IV SCH ×2 (08:46→21:50)
[2021-05-28] MEDS ORDERED: MAG SULF 2000 MG/WATER PREMIX 50 ML IV SCH (09:00)
--- NOTE | 2021-05-28 09:30 | NUR ---
DUE MEDS GIVEN. ORAL CARE AND RAMÍREZ CARE DONE. TURNED AND REPOSITIONED
[2021-05-28] MEDS: VANCOMYCIN HCL 1.25 GM in DEXTROSE 5% 250 ML IV SCH (12:00)
--- NOTE | 2021-05-28 12:30 | NUR ---
YCIE219.3, TYLENOL GIVEN COOLING MEASURES RENDERED
--- NOTE | 2021-05-28 12:42 | NUR ---
05/28/21 RD FOLLOW UP COMPLETED PLEASE REFER TO NUTRITION ASSESSMENT UNDER CARE ACTIVITY FOR ESTIMATED NUTRITIONAL NEEDS. 1. CONTINUE NEPRO @ 30 ML/HR TOLERATED -WATER FLUSH: 50 ML Q6H OR PER MD -PROVIDES 1296 KCAL AND 58 GM PROTEIN -WITH D5W, PT RECEIVES ~ 1800 KCAL AND 58 GM PROTEIN MEETING 88% KCAL AND 100% PROTEIN NEEDS 2. MONITOR NUTRITION-RELATED LAB VALUES 3. RD TO FOLLOW-UP 2-3 DAYS, HIGH RISK LEESA ESPINOSA RD
--- NOTE | 2021-05-28 13:15 | NUR ---
BROUGHT TO RADIOLOGY FOR HCT
[2021-05-28] MEDS: ACETAMINOPHEN 325 MG TAB PO PRN (13:42)
[2021-05-28] MEDS: NON ADHERENT DRESSING TP SCH (13:42)
--- NOTE | 2021-05-28 13:45 | NUR ---
BACK FROM CT, TOLERATED PROCEDURE WELL
--- NOTE | 2021-05-28 14:00 | NUR ---
RECEIVED CALL FROM DR HURT FOR CT RESULTS, NEW BRAIN BLEED NOTED. NOTIFIED DR NICOLE ABOUT RESULTS, ORDERED TO CONSULT DR WEIR
--- NOTE | 2021-05-28 14:15 | NUR ---
LEFT MESSAGE TO DR WEIR FOR CONSULT
--- NOTE | 2021-05-28 17:00 | NUR ---
BETO CARE DONE, TURNED AND REPOSITIONED
[2021-05-28] MEDS: FLUCONAZOLE 200 MG/NS PREMIX 100 ML IV SCH (18:30)
[2021-05-29] VITALS (31 sets, daily range): BP systolic 87–141; BP diastolic 47–84
[2021-05-29] MEDS: ALBUTEROL SULFATE/IPRATROPIU 3 ML SOL IH SCH ×4 (01:00→19:30)
--- NOTE | 2021-05-29 01:31 | NUR ---
PT TRANSPORTED TO CT AND BACK TO ICU 5 W/ NO ADVERSE EVENTS PT TOLERATED WELL VENT PLUGGED INTO RED OUTLET AND VENT ALARMS REMAIN ON AND AUDIBLE AMBU IS AT BEDSIDE WILL CONTINUE TO MONITOR
[2021-05-29] MEDS ORDERED: PIPERACILLIN/TAZOBACTAM 4.5 GM VIAL IV ONE (03:12)
[2021-05-29] MEDS: ACETAMINOPHEN 325 MG TAB PO PRN ×2 (03:12→16:14)
[2021-05-29] MEDS: PIPERACILLIN/TAZOBACTAM 4.5 GM in DEXTROSE 5% 100 ML IV SCH ×5 (03:23→21:08)
--- NOTE | 2021-05-29 04:15 | NUR ---
SPUTUM COLLECTED AND SENT TO LAB
[2021-05-29] MEDS: VANCOMYCIN HCL 1.25 GM in DEXTROSE 5% 250 ML IV SCH (06:24)
[2021-05-29] MEDS: DEXTROSE 5% 1,000 ML IV SCH ×2 (06:37→21:10)
[2021-05-29] MEDS: ACETAZOLAMIDE SOD 250 MG TAB PO SCH ×4 (06:39→18:52)
[2021-05-29 07:00] LABS: ANION GAP 6.4 (8-16); CARBON DIOXIDE 37.1 mmol/L (21-32); CREATININE 1.1 mg/dL (0.6-1.3); POTASSIUM 3.5 mmol/L (3.5-5.1)
--- NOTE | 2021-05-29 07:15 | NUR ---
RECEIVED REPORT FROM SURVEY RESEARCH CENTER DIRECTOR RN.
--- NOTE | 2021-05-29 08:30 | NUR ---
PATIENT UNRESPONSIVE. PUPILS 4MM AND SLUGGISH BUT REACTIVE. DOES NOT RESPOND TO COMMANDS OR TO PAINFUL STIMULI. CARIN PICC LINE IN PLACE. LEVOPHED AT 2MCG/KG/MIN. VANCOMYCIN INFUSING AT 125ML/HR. ETT TO VENT AT AC MODE FIO2 .75/ VT 400/ RATE 16/PEEP 0. SAO2 96%. ANTERIOR/LATERAL BREATH SOUNDS COARSE. RIGHT LATERAL CT TO SUCTION. NO AIR LEAK. HYPOACTIVE BOWEL SOUNDS. NGT WITH NEPRO AT 30CC/HR. NO RESIDUAL. RAMÍREZ IN PLACE WITH YELLOW URINE.
[2021-05-29] MEDS: FAMOTIDINE 20 MG/2 ML VIAL IV SCH ×2 (09:22→21:08)
[2021-05-29] MEDS: FUROSEMIDE 20 MG/2 ML VIAL IVP SCH (09:22)
--- NOTE | 2021-05-29 10:33 | NUR ---
BP STABLE. LEVO TURNED OFF. WILL MONITOR RESPONSE.
--- NOTE | 2021-05-29 13:00 | NUR ---
DR. LOPEZ HERE TO SEE PATIENT. NO NEW ORDERS. Addendum: 05/29/21 at 1522 by Brittney Banuelos RN DR. CHEN HERE TO SEE PATIENT NO NEW ORDERS.
[2021-05-29] MEDS: NON ADHERENT DRESSING TP SCH (13:50)
--- NOTE | 2021-05-29 14:00 | NUR ---
FIO2 WEANED DOWN TO 35%. TOLERATED WELL WITH SAO2 90'S.
--- NOTE | 2021-05-29 16:00 | NUR ---
PATIENT TEMP UP TO 100.0. TYLENOL GIVEN. FIO2 DECREASED TO .30. SAO2 96%. Addendum: 05/29/21 at 1702 by Brittney Banuelos RN INCORRECT PATIENT NOTE.
--- NOTE | 2021-05-29 17:20 | NUR ---
FIO2 HAD BEEN TITRATED TO 30% DUE TO LOW SPO2 88% FIO2 INCREASED TO 35% NURSE AWARE. VENT ALARMS ON AND FUNCTIONING. NO CHANGES AT THIS TIME. ALARMS ON AND FUNCTIONING.
--- NOTE | 2021-05-29 17:27 | NUR ---
PATIENTS SAO2 DOWN TO 87-88%. SUCTIONED PATIENT. SMALL AMOUNT OF SECRETIONS. CALLED RT. INCREASED FIO2 BACK TO 35%. SAO2 UP TO 93%
[2021-05-29] MEDS: FLUCONAZOLE 200 MG/NS PREMIX 100 ML IV SCH (18:52)
--- NOTE | 2021-05-29 19:25 | NUR ---
REPORT GIVEN TO CIRCUIT DESIGN ENGINEER RN.
[2021-05-29 19:48] LABS: BASOPHILS # (AUTO) 0.1 K/uL (0.00-0.22); BASOPHILS % (AUTO) 0.9 % (0.0-2.0); EOSINOPHILS # (AUTO) 0.2 K/uL (0-0.4); EOSINOPHILS % (AUTO) 1.8 % (0.0-4.0); HEMATOCRIT 24.7 % (36-52); LYMPHOCYTES # (AUTO) 0.8 K/uL (2.0-11.5); LYMPHOCYTES % (AUTO) 7.5 % (20.5-51.1); MEAN CORPUSCULAR HEMOGLOBIN 24 pg (27-31); MEAN CORPUSCULAR HGB CONC 29 g/dL (33-37); MEAN CORPUSCULAR VOLUME 80.1 fL (80-94); MONOCYTES # (AUTO) 1.1 K/uL (0.8-1.0); MONOCYTES % (AUTO) 10.3 % (1.7-9.3); NEUTROPHILS # (AUTO) 8.8 K/uL (1.8-7.7); NEUTROPHILS % (AUTO) 79.5 % (42.2-75.2); PLATELET COUNT (AUTO) 274 K/uL (140-450); RED BLOOD CELL COUNT(AUTO) 3.09 MIL/uL (4.20-6.10); RED CELL DISTRIBUTION WIDTH 20.2 % (11.6-13.7); WHITE BLOOD COUNT (AUTO) 11.1 K/uL (4.8-10.8)
[2021-05-29 20:35] LABS: HEMOGLOBIN 7.2 g/dL (12.0-18.0)
[2021-05-29 21:09] LABS: BASOPHILS # (AUTO) 0.1 K/uL (0.00-0.22); BASOPHILS % (AUTO) 0.7 % (0.0-2.0); EOSINOPHILS # (AUTO) 0.2 K/uL (0-0.4); EOSINOPHILS % (AUTO) 2.3 % (0.0-4.0); HEMATOCRIT 21.8 % (36-52); LYMPHOCYTES # (AUTO) 0.8 K/uL (2.0-11.5); LYMPHOCYTES % (AUTO) 8.6 % (20.5-51.1); MEAN CORPUSCULAR HEMOGLOBIN 24 pg (27-31); MEAN CORPUSCULAR HGB CONC 31 g/dL (33-37); MEAN CORPUSCULAR VOLUME 76.8 fL (80-94); MONOCYTES # (AUTO) 0.9 K/uL (0.8-1.0); MONOCYTES % (AUTO) 9.1 % (1.7-9.3); NEUTROPHILS # (AUTO) 7.5 K/uL (1.8-7.7); NEUTROPHILS % (AUTO) 79.3 % (42.2-75.2); PLATELET COUNT (AUTO) 258 K/uL (140-450); RED BLOOD CELL COUNT(AUTO) 2.84 MIL/uL (4.20-6.10); RED CELL DISTRIBUTION WIDTH 19.3 % (11.6-13.7); WHITE BLOOD COUNT (AUTO) 9.5 K/uL (4.8-10.8)
[2021-05-29 21:16] LABS: HEMOGLOBIN 6.8 g/dL (12.0-18.0)
[2021-05-30] VITALS (27 sets, daily range): BP systolic 101–135; BP diastolic 49–71
[2021-05-30] MEDS: ALBUTEROL SULFATE/IPRATROPIU 3 ML SOL IH SCH ×4 (00:12→20:41)
[2021-05-30] MEDS: VANCOMYCIN HCL 1.25 GM in DEXTROSE 5% 250 ML IV SCH (00:26)
[2021-05-30] MEDS: ACETAZOLAMIDE SOD 250 MG TAB PO SCH ×4 (00:26→18:42)
--- NOTE | 2021-05-30 02:15 | NUR ---
PATIENT SLEEPING WITHOUT ANY SEDATION UNABLE TO TRACK OR OPENED HIS EYES SPONTANEOUS VITALS SIGNS IN NORMAL LIMITS ST 102 ON MONITOR WE PROVIDED ORAL CARE AND GAVE HIM A BATH SEEN COMFORTABLE NOT SIGNS OF PAIN //DiCaprio RN
[2021-05-30] MEDS: PIPERACILLIN/TAZOBACTAM 4.5 GM in DEXTROSE 5% 100 ML IV SCH ×4 (02:21→20:07)
--- NOTE | 2021-05-30 07:24 | NUR ---
PATIENT LETARGY STABLE WE GAVE ONE UNIT OF PRBC DUE TO HGB 6.[address] SAN AND INFORMED HE GAVE TE ORDER /
--- NOTE | 2021-05-30 07:30 | NUR ---
RECEIVED REPORT FROM SEAFOOD HARVESTER NURSE FOR CONTINUITY OF CARE. PT OFF SEDATION. OPENS EYES BUT DOES NOT TRACK AT THIS TIME. ETT TUBE TO VENT FIO2 50%/ VT 400/ RATE 16/ PEEP 0. CARIN PICC LINE RUNNING D5 AT 50ML/HR. INTACT AND PATENT. RIGHT LATERAL CHEST TUBE TO 30MMHG SUCTION. INTERMITTENT AIR LEAK NOTED. SEROUS DRAINAGE. BOWEL SOUNDS ACTIVE. ABDOMEN SOFT. NGT TO TUBE FEEDING. NEPRO AT 30CC/HR. RAMÍREZ IN PLACE WITH CLEAR YELLOW URINE. SAFETY PRECAUTIONS IN PLACE. CALL LIGHT WITHIN REACH WILL CONTINUE TO MONITOR.
[2021-05-30] MEDS: FAMOTIDINE 20 MG/2 ML VIAL IV SCH ×2 (08:54→20:07)
--- NOTE | 2021-05-30 09:10 | NUR ---
ALL SCHEDULED MEDS GIVEN. PT IS STABLE. NO DISTRESS NOTED. WILL CONTINUE TO MONITOR.
[2021-05-30 10:10] LABS: BASOPHILS # (AUTO) 0.1 K/uL (0.00-0.22); BASOPHILS % (AUTO) 0.6 % (0.0-2.0); EOSINOPHILS # (AUTO) 0.2 K/uL (0-0.4); EOSINOPHILS % (AUTO) 2.4 % (0.0-4.0); HEMATOCRIT 24.2 % (36-52); HEMOGLOBIN 7.4 g/dL (12.0-18.0); LYMPHOCYTES # (AUTO) 0.7 K/uL (2.0-11.5); LYMPHOCYTES % (AUTO) 7.4 % (20.5-51.1); MEAN CORPUSCULAR HEMOGLOBIN 24 pg (27-31); MEAN CORPUSCULAR HGB CONC 31 g/dL (33-37); MEAN CORPUSCULAR VOLUME 78.4 fL (80-94); MONOCYTES # (AUTO) 0.9 K/uL (0.8-1.0); NEUTROPHILS # (AUTO) 7.7 K/uL (1.8-7.7); NEUTROPHILS % (AUTO) 80.6 % (42.2-75.2); PLATELET COUNT (AUTO) 234 K/uL (140-450); RED BLOOD CELL COUNT(AUTO) 3.08 MIL/uL (4.20-6.10); RED CELL DISTRIBUTION WIDTH 19.4 % (11.6-13.7); WHITE BLOOD COUNT (AUTO) 9.6 K/uL (4.8-10.8)
--- NOTE | 2021-05-30 11:09 | NUR ---
2 FOLLOW UP COMPLETED PLEASE REFER TO NUTRITION ASSESSMENT UNDER CARE ACTIVITY FOR ESTIMATED NUTRITIONAL NEEDS. 1. CONTINUE NEPRO @ 30 ML/HR TOLERATED -WATER FLUSH: 50 ML Q6H OR PER MD -PROVIDES 1296 KCAL AND 58 GM PROTEIN -WITH D5W, PT RECEIVES ~ 1500 KCAL AND 58 GM PROTEIN MEETING 75% KCAL AND 100% PROTEIN NEEDS 2. RECOMMEND REGLAN TO STIMULATE GI MOTILITY 3. RD TO FOLLOW-UP 3-5 DAYS, MODERATE RISK LEESA ESPINOSA RD
[2021-05-30] MEDS: NON ADHERENT DRESSING TP SCH (12:33)
--- NOTE | 2021-05-30 12:35 | NUR ---
ALL SCHEDULED MEDS GIVEN. PT IS STABLE. NO DISTRESS NOTED. WILL CONTINUE TO MONITOR.
--- NOTE | 2021-05-30 13:40 | NUR ---
RT AT BEDSIDE ADMINISTERING BREATHING TREATMENTS.
[2021-05-30 14:54] LABS: ANION GAP 5.2 (8-16); CARBON DIOXIDE 34.2 mmol/L (21-32); CREATININE 1.2 mg/dL (0.6-1.3); POTASSIUM 3.4 mmol/L (3.5-5.1); TOTAL BILIRUBIN 0.4 mg/dL (0.0-1.0)
--- NOTE | 2021-05-30 15:05 | NUR ---
ALL SCHEDULED MEDS GIVEN. PT IS STABLE. NO DISTRESS NOTED. WILL CONTINUE TO MONITOR.
[2021-05-30] MEDS: POTASSIUM CHLORIDE 20% 40 MEQ/15 ML UDC GT PRN (15:13)
--- NOTE | 2021-05-30 18:35 | NUR ---
ALL SCHEDULED MEDS GIVEN. PT IS STABLE. NO DISTRESS NOTED. WILL CONTINUE TO MONITOR.
[2021-05-30] MEDS: FLUCONAZOLE 200 MG/NS PREMIX 100 ML IV SCH (18:43)
[2021-05-30] MEDS: DEXTROSE 5% 1,000 ML IV SCH (19:21)
--- NOTE | 2021-05-30 19:24 | NUR ---
ENDORSED TO PHARMACY DISTRICT MANAGER NURSE FOR CONTINUITY OF CONTINUITY OF CARE. PT IS STABLE.
--- NOTE | 2021-05-30 21:24 | NUR ---
PATIENT STABLE LETARGY VITALS SIGNS IN NORMAL LIMITS NOT SIGNS OF PAIN TOMORROW PATIENT WILL HAVE EEG BUT PATIENT ARE ABLE TO OPEN HIS YES ANT DO SOUNDS WHEN WE PROVIDED ORAL CARE //DiCaprio RN
[2021-05-31] VITALS (29 sets, daily range): BP systolic 99–138; BP diastolic 50–74
[2021-05-31] MEDS: ALBUTEROL SULFATE/IPRATROPIU 3 ML SOL IH SCH ×4 (00:16→19:23)
[2021-05-31] MEDS: ACETAZOLAMIDE SOD 250 MG TAB PO SCH ×5 (00:20→23:37)
--- NOTE | 2021-05-31 00:37 | NUR ---
PATIENT STABLE NOT SIGNS OF PAIN ST 104 ON MONITOR //DiCaprio RN
[2021-05-31] MEDS: PIPERACILLIN/TAZOBACTAM 4.5 GM in DEXTROSE 5% 100 ML IV SCH ×4 (03:11→21:07)
[2021-05-31 06:16] LABS: BASOPHILS # (AUTO) 0.1 K/uL (0.00-0.22); BASOPHILS % (AUTO) 1.1 % (0.0-2.0); EOSINOPHILS # (AUTO) 0.3 K/uL (0-0.4); EOSINOPHILS % (AUTO) 2.8 % (0.0-4.0); HEMATOCRIT 24.6 % (36-52); HEMOGLOBIN 7.6 g/dL (12.0-18.0); LYMPHOCYTES # (AUTO) 0.8 K/uL (2.0-11.5); LYMPHOCYTES % (AUTO) 8.6 % (20.5-51.1); MEAN CORPUSCULAR HEMOGLOBIN 24 pg (27-31); MEAN CORPUSCULAR HGB CONC 31 g/dL (33-37); MEAN CORPUSCULAR VOLUME 78.7 fL (80-94); MONOCYTES % (AUTO) 10.3 % (1.7-9.3); NEUTROPHILS # (AUTO) 7.6 K/uL (1.8-7.7); NEUTROPHILS % (AUTO) 77.2 % (42.2-75.2); PLATELET COUNT (AUTO) 256 K/uL (140-450); RED BLOOD CELL COUNT(AUTO) 3.12 MIL/uL (4.20-6.10); RED CELL DISTRIBUTION WIDTH 19.5 % (11.6-13.7); WHITE BLOOD COUNT (AUTO) 9.8 K/uL (4.8-10.8)
--- NOTE | 2021-05-31 06:19 | NUR ---
PATIENT STABLE VITALS SIGNS IN NORMAL LIMITS //DiCaprio RN
[2021-05-31 06:24] LABS: ANION GAP 5.7 (8-16); CARBON DIOXIDE 35.6 mmol/L (21-32); CREATININE 1.2 mg/dL (0.6-1.3); POTASSIUM 3.3 mmol/L (3.5-5.1)
--- NOTE | 2021-05-31 07:30 | NUR ---
RECEIVED REPORT FROM JA REEVES.
--- NOTE | 2021-05-31 08:00 | NUR ---
PATIENT OPENS EYES SPONTANEOUSLY. DOES NOT FOLLOW COMMANDS. SPONTANEOUS COUGH. PUPILS 3MM AND SLUGGISH TO REACT. ANTERIOR/LATERAL BREATH SOUNDS COARSE AND DIMINISHED AT BASES. ETT TO VENT AC MODE FIO2 .40/VT 400/ RATE 16/ PEEP 0. RIGHT LATERAL CHEST TUBE IN PLACE TO -30CM SUCTION. NO AIR LEAK. BOWEL SOUNDS ACTIVE. ABDOMEN SOFT. NGT IN PLACE WITH NEPRO AT 30CC/HR. 30CC OF RISIDUAL. RAMÍREZ IN PLACE WITH YELLOW URINE.
[2021-05-31] MEDS: FAMOTIDINE 20 MG/2 ML VIAL IV SCH ×2 (09:31→21:07)
[2021-05-31] MEDS: POTASSIUM CHLORIDE 20% 40 MEQ/15 ML UDC GT PRN (09:34)
--- NOTE | 2021-05-31 10:00 | NUR ---
EEG COMPLETE. PATIENT TOLERATED WELL.
[2021-05-31] MEDS: NON ADHERENT DRESSING TP SCH (13:00)
--- NOTE | 2021-05-31 13:39 | NUR ---
WOUND CARE RE-EVALUATION NOTE: NO NEW SKIN BREAKS, BLE WOUNDS WOUND, NO S/S OF CONDITION, WOUND BEDS ARE MOIST. -STASIS ULCERS LLE 3X2X0.1CM WOUND BEDS MOIST, PALE PINK, NO ODOR, WOUND EDGE FLAT, BETO WOUND SKIN DRY SCALY SKIN WITH SACBS -STASIS ULCERS RLE 4X3X0.1CM WOUND BEDS MOIST, PINK, NO ODOR, WOUND EDGE FLAT, BETO WOUND SKIN DRY.
[2021-05-31] MEDS: DEXTROSE 5% 1,000 ML IV SCH (15:05)
--- NOTE | 2021-05-31 19:15 | NUR ---
REPORT GIVEN TO NIGHT RN.
[2021-05-31] MEDS: FLUCONAZOLE 200 MG/NS PREMIX 100 ML IV SCH (19:23)
[2021-05-31] MEDS ORDERED: NOREPINEPHRINE 4 MG/4 ML VIAL IV ONE ×2 (23:57→23:58)
[2021-06-01] VITALS (29 sets, daily range): BP systolic 84–157; BP diastolic 36–83
[2021-06-01] MEDS: NOREPINEPHRINE 8 MG in DEXTROSE 5% 250 ML IV PRN (00:05)
[2021-06-01] MEDS: ALBUTEROL SULFATE/IPRATROPIU 3 ML SOL IH SCH ×4 (01:59→22:02)
[2021-06-01] MEDS: PIPERACILLIN/TAZOBACTAM 4.5 GM in DEXTROSE 5% 100 ML IV SCH ×3 (03:31→15:21)
[2021-06-01] MEDS: ACETAZOLAMIDE SOD 250 MG TAB PO SCH ×3 (04:34→18:21)
--- NOTE | 2021-06-01 06:12 | NUR ---
PATIENT STABLE VITALS SIGNS IN NORMAL LIMITS SR ON MONITOR NOT COMPLAINING OF PAIN//DiCaprio RN
--- NOTE | 2021-06-01 07:15 | NUR ---
RECEIVED REPORT FROM JA REEVES.
[2021-06-01 07:24] LABS: BASOPHILS # (AUTO) 0.1 K/uL (0.00-0.22); BASOPHILS % (AUTO) 0.8 % (0.0-2.0); EOSINOPHILS # (AUTO) 0.3 K/uL (0-0.4); EOSINOPHILS % (AUTO) 3.1 % (0.0-4.0); HEMATOCRIT 23.1 % (36-52); HEMOGLOBIN 7.1 g/dL (12.0-18.0); LYMPHOCYTES # (AUTO) 0.8 K/uL (2.0-11.5); LYMPHOCYTES % (AUTO) 8.1 % (20.5-51.1); MEAN CORPUSCULAR HEMOGLOBIN 24 pg (27-31); MEAN CORPUSCULAR HGB CONC 31 g/dL (33-37); MEAN CORPUSCULAR VOLUME 79.5 fL (80-94); MONOCYTES # (AUTO) 1.1 K/uL (0.8-1.0); MONOCYTES % (AUTO) 12.2 % (1.7-9.3); NEUTROPHILS # (AUTO) 7.1 K/uL (1.8-7.7); NEUTROPHILS % (AUTO) 75.8 % (42.2-75.2); PLATELET COUNT (AUTO) 242 K/uL (140-450); RED BLOOD CELL COUNT(AUTO) 2.91 MIL/uL (4.20-6.10); RED CELL DISTRIBUTION WIDTH 19.8 % (11.6-13.7); WHITE BLOOD COUNT (AUTO) 9.4 K/uL (4.8-10.8)
[2021-06-01 07:50] LABS: ANION GAP 5.8 (8-16); CARBON DIOXIDE 34.5 mmol/L (21-32); CREATININE 1.2 mg/dL (0.6-1.3); POTASSIUM 3.3 mmol/L (3.5-5.1)
--- NOTE | 2021-06-01 08:00 | NUR ---
PATIENT OPENS EYES BUT DOES NOT RESPOND. NO COMMANDS FOLLOWED. PUPILS 3MM. CARIN PICC LINE WITH D5 AT 50ML/HR. LEVO AT 1MCG/KG/MIN. BP STABLE 116/68. LEVO TURNED OFF. ETT TO VENT A/C MODE FIO2 .40/VT 400/ RATE 16/ PEEP 0. SAO2 97%. ANTERIOR/LATERAL BREATH SOUNDS DIMINISHED ON THE LEFT RHONCHI ON THE RIGHT RIGHT CT TO -30CM SUCTION. INTERMITTMENT AIR LEAK NOTED. SEROUS DRAINAGE. HYPOACTIVE BOWEL SOUNDS. ABDOMEN SOFT. NGT RIGHT NARE WITH NEPRO AT 30CC/HR. NO RISIDUAL. RAMÍREZ WITH YELLOW URINE.
[2021-06-01] MEDS: FAMOTIDINE 20 MG/2 ML VIAL IV SCH ×2 (09:00→20:34)
--- NOTE | 2021-06-01 09:00 | NUR ---
DR. RIOS HERE TO SEE PATIENT. NO NEW ORDERS.
[2021-06-01] MEDS ORDERED: VANCOMYCIN HCL 1.25 GM in DEXTROSE 5% 250 ML IV SCH (10:00)
[2021-06-01] MEDS: DEXTROSE 5% 1,000 ML IV SCH (11:05)
[2021-06-01] MEDS: NON ADHERENT DRESSING TP SCH (13:37)
--- NOTE | 2021-06-01 16:14 | NUR ---
REPORTED ABG TO DR WINTER. PER DR, INCREASED VT TO 500 AND WILL GET A FOLLOW UP ABG TOMORROW.
[2021-06-01] MEDS: POTASSIUM CHLORIDE 20% 40 MEQ/15 ML UDC GT PRN (16:45)
--- NOTE | 2021-06-01 16:45 | NUR ---
K+ 3.3 REPLACEMENT 40MEQ GIVEN.
[2021-06-01] MEDS: FLUCONAZOLE 200 MG/NS PREMIX 100 ML IV SCH (18:21)
--- NOTE | 2021-06-01 19:10 | NUR ---
Received report from July, AM WAREHOUSE REPRESENTATIVE. All questions answered. Patient off Sedation X2 weeks already, has Flat affect, opens eyes, But does NOT follow commands, still on ETT to Vent with settings of AC RATE= 16, TV= 500, FiO2= 40% & NO PEEP. IVF= D5W @50ml/hr on CARIN PICC 2 Lumen, Chahal to [place] with good output ( Day shift 1925ml out) No BM.
--- NOTE | 2021-06-01 19:24 | NUR ---
REPORT GIVEN TO ENGINEER/CONDUCTOR RN, LATRICE.
[2021-06-01] MEDS: PIPERACILLIN/TAZOBACTAM 4.5 GM in NACL 0.9% 100 ML IV SCH (20:33)
--- NOTE | 2021-06-01 21:05 | NUR ---
Due medications given, tolerated well but will continue to monitor continously for any signs & symptoms of Adverse reactions. Likewise with Vital signs.
[2021-06-01] MEDS ORDERED: NACL 0.45% IV SCH (21:55)
[2021-06-01] MEDS ORDERED: POTASSIUM CHLORIDE IV SCH (21:55)
[2021-06-02] VITALS (25 sets, daily range): BP systolic 96–139; BP diastolic 46–77
--- NOTE | 2021-06-02 00:06 | NUR ---
Turn & reposition q2h as ordered. No pain or discomfort noted at this time. Will continue to monitor Vital signs Continously.
[2021-06-02] MEDS: ACETAZOLAMIDE SOD 250 MG TAB PO SCH ×4 (00:07→18:08)
[2021-06-02] MEDS: ALBUTEROL SULFATE/IPRATROPIU 3 ML SOL IH SCH ×4 (01:40→19:00)
[2021-06-02] MEDS: PIPERACILLIN/TAZOBACTAM 4.5 GM in NACL 0.9% 100 ML IV SCH ×4 (03:15→20:15)
--- NOTE | 2021-06-02 04:28 | NUR ---
Total care given, Pericare done, Change gown & linen. Made clean, Dry & comfortable.
[2021-06-02 04:52] LABS: BASOPHILS # (AUTO) 0.1 K/uL (0.00-0.22); BASOPHILS % (AUTO) 0.6 % (0.0-2.0); EOSINOPHILS # (AUTO) 0.3 K/uL (0-0.4); EOSINOPHILS % (AUTO) 3.5 % (0.0-4.0); HEMATOCRIT 22.6 % (36-52); LYMPHOCYTES # (AUTO) 0.9 K/uL (2.0-11.5); LYMPHOCYTES % (AUTO) 9.5 % (20.5-51.1); MEAN CORPUSCULAR HEMOGLOBIN 24 pg (27-31); MEAN CORPUSCULAR HGB CONC 31 g/dL (33-37); MEAN CORPUSCULAR VOLUME 78.9 fL (80-94); MONOCYTES # (AUTO) 0.9 K/uL (0.8-1.0); MONOCYTES % (AUTO) 10.3 % (1.7-9.3); NEUTROPHILS % (AUTO) 76.1 % (42.2-75.2); PLATELET COUNT (AUTO) 210 K/uL (140-450); RED BLOOD CELL COUNT(AUTO) 2.87 MIL/uL (4.20-6.10); RED CELL DISTRIBUTION WIDTH 19.7 % (11.6-13.7); WHITE BLOOD COUNT (AUTO) 9.2 K/uL (4.8-10.8)
[2021-06-02 04:56] LABS: ANION GAP 8.2 (8-16); CARBON DIOXIDE 33.2 mmol/L (21-32); CREATININE 1.3 mg/dL (0.6-1.3); POTASSIUM 3.4 mmol/L (3.5-5.1)
--- NOTE | 2021-06-02 07:07 | NUR ---
Endorse patient to July, AM PREFINISH OPERATOR. All questions answered. Chahal 1275ml out. No BM. Lying in Bed, Clean, dry & comfortable.
--- NOTE | 2021-06-02 07:29 | NUR ---
RT AT PT BEDSIDE FOR BREATHING TX.
[2021-06-02] MEDS: DEXTROSE 5% 1,000 ML IV SCH (08:47)
[2021-06-02] MEDS: FAMOTIDINE 20 MG/2 ML VIAL IV SCH ×2 (09:22→20:15)
[2021-06-02] MEDS: POTASSIUM CHL 20 MEQ/ 1/2 NS 1,000 ML IV SCH (10:55)
[2021-06-02] MEDS: POTASSIUM CHLORIDE 20% 40 MEQ/15 ML UDC GT PRN (10:56)
[2021-06-02] MEDS: NON ADHERENT DRESSING TP SCH (13:03)
--- NOTE | 2021-06-02 13:09 | NUR ---
RT AT PT BEDSIDE.
[2021-06-02] MEDS: ACETAMINOPHEN 325 MG TAB PO PRN (14:02)
--- NOTE | 2021-06-02 19:10 | NUR ---
Received report from ANNE Gibson HAND DEVELOPER. Questions answered. IVF changed to 1/2NS + 20meq KCL @50ml/hr X2L then NS @tko on CARIN PICC, Fela 1175ml out, No BM.
[2021-06-02] MEDS ORDERED: VANCOMYCIN HCL 1.25 GM in DEXTROSE 5% 250 ML IV SCH (21:00)
--- NOTE | 2021-06-02 21:03 | NUR ---
Due medications given, tolerated well but will continue to observe for any signs & symptoms of any Adverse reactions.
[2021-06-03] VITALS (29 sets, daily range): BP systolic 108–156; BP diastolic 58–90
--- NOTE | 2021-06-03 00:05 | NUR ---
No pain discomfort noted, turn & reposition q2h as ordered.
[2021-06-03] MEDS: ACETAZOLAMIDE SOD 250 MG TAB PO SCH ×4 (00:45→17:20)
[2021-06-03] MEDS: ALBUTEROL SULFATE/IPRATROPIU 3 ML SOL IH SCH ×4 (01:56→20:48)
[2021-06-03] MEDS: PIPERACILLIN/TAZOBACTAM 4.5 GM in NACL 0.9% 100 ML IV SCH ×4 (02:46→21:49)
--- NOTE | 2021-06-03 04:50 | NUR ---
Total care done, pericare given. Change gown, linen & chaulks, made clean, Dry & comfortable.
[2021-06-03 05:21] LABS: BASOPHILS # (AUTO) 0.1 K/uL (0.00-0.22); BASOPHILS % (AUTO) 0.7 % (0.0-2.0); EOSINOPHILS # (AUTO) 0.4 K/uL (0-0.4); EOSINOPHILS % (AUTO) 4.1 % (0.0-4.0); HEMATOCRIT 24.3 % (36-52); HEMOGLOBIN 7.4 g/dL (12.0-18.0); LYMPHOCYTES % (AUTO) 10.1 % (20.5-51.1); MEAN CORPUSCULAR HEMOGLOBIN 24 pg (27-31); MEAN CORPUSCULAR HGB CONC 31 g/dL (33-37); MEAN CORPUSCULAR VOLUME 78.4 fL (80-94); MONOCYTES # (AUTO) 1.2 K/uL (0.8-1.0); MONOCYTES % (AUTO) 11.8 % (1.7-9.3); NEUTROPHILS # (AUTO) 7.5 K/uL (1.8-7.7); NEUTROPHILS % (AUTO) 73.3 % (42.2-75.2); PLATELET COUNT (AUTO) 197 K/uL (140-450); RED BLOOD CELL COUNT(AUTO) 3.09 MIL/uL (4.20-6.10); RED CELL DISTRIBUTION WIDTH 19.7 % (11.6-13.7); WHITE BLOOD COUNT (AUTO) 10.2 K/uL (4.8-10.8)
[2021-06-03] MEDS: POTASSIUM CHL 20 MEQ/ 1/2 NS 1,000 ML IV SCH ×2 (06:00→11:09)
[2021-06-03 06:04] LABS: CARBON DIOXIDE 31.5 mmol/L (21-32); CREATININE 1.3 mg/dL (0.6-1.3); POTASSIUM 3.5 mmol/L (3.5-5.1)
--- NOTE | 2021-06-03 07:26 | NUR ---
Endorse patient to ANNE Ogden MANAGER [employer]. All questions answered.
--- NOTE | 2021-06-03 07:26 | NUR ---
RECEIVED BEDSIDE REPORT FROM LATRICE REEVES FOR CONTINUITY OF CARE. PT OFF SEDATION. OPENS EYES BUT DOES NOT TRACK AT THIS TIME. ETT TO VENT, ACVC, FIO2 40%, VT 500, RATE 16, PEEP 0. CARIN PICC LINE RUNNING NACL 0.45% KCL AT 50ML/HR. INTACT AND PATENT. RIGHT LATERAL CHEST TUBE TO 30MMHG SUCTION. SEROUS DRAINAGE. BOWEL SOUNDS ACTIVE. ABDOMEN SOFT. NGT TO TUBE FEEDING. NEPRO AT 30ML/HR. RAMÍREZ IN PLACE WITH CLEAR YELLOW URINE. ALL SAFETY PRECAUTIONS MET. CALL LIGHT WITHIN REACH. INITIAL ASSESSMENT COMPLETE, WILL CONTINUE TO CLOSELY MONITOR.
--- NOTE | 2021-06-03 08:25 | NUR ---
RHONCHI BREATHSOUNDS. SUCTION DONE AND IMPROVED BREATH SOUNDS AFTER SUCTIONING.PT SATS 99% ON 40% FIO2 TITRATED DOWN TO 35% PT TOLERATED WELL SATS AT 97%
[2021-06-03] MEDS: FAMOTIDINE 20 MG/2 ML VIAL IV SCH ×2 (08:36→21:48)
--- NOTE | 2021-06-03 09:00 | NUR ---
SEEN AND EXAMINED BY DR WINTER.
--- NOTE | 2021-06-03 11:50 | NUR ---
SEEN AND EXAMINED BY DR NICOLE.
[2021-06-03] MEDS: NON ADHERENT DRESSING TP SCH (12:02)
--- NOTE | 2021-06-03 12:02 | NUR ---
DR. BRITTNEY URRUTIA EARLIER REVIEWED ABG SAMPLE REPORT, PATIENT, VENTILATOR AND DIAGNOSTIC SATURATION, CXR DATED 06/02, ABG SIRENA: OKAY TO DECREASE Vt TO 400ml INCREASE RR TO 20 BPM Addendum: 06/03/21 at 1331 by Jef Pat RT GOOD CHEST RISE ENDOTRACHEAL SUCTION FOR LARGE THIN YELLOW SECRETIONS AIRWAY PATENT
--- NOTE | 2021-06-03 13:41 | NUR ---
RHONCHI BREATHSOUNDS. PT WAS SUCTIONED AND HAD LARGE THIN PALE YELLOW SECRETIONS
--- NOTE | 2021-06-03 15:50 | NUR ---
ADELINE CIRCUS LABORER AT BEDSIDE.
--- NOTE | 2021-06-03 17:30 | NUR ---
PT CLEANED AND REPOSITIONED. TOLERATED WELL. WILL CONTINUE TO MONITOR.
--- NOTE | 2021-06-03 17:51 | NUR ---
RHONCHI BREATH SOUNDS. SUCTION DONE AND IMPROVED BREATH SOUNDS AFTER SUCTIONING. COPIOUS THIN WHITE FROTHY SECRETIONS
--- NOTE | 2021-06-03 19:09 | NUR ---
ENDORSED BEDSIDE REPORT TO MICHAEL NIGHT RN FOR CONTINUITY OF CARE. Addendum: 06/04/21 at 0754 by Melvi Ramirez RN ENDORSED BEDSIDE REPORT TO BROOKE PERES RN FOR CONTINUITY OF CARE.
--- NOTE | 2021-06-03 19:15 | NUR ---
RECEIVED PATIENT ON BED ORALLY INTUBATED AND VENTILATED AT 35% FIO2; COMMENCING ON IV 1/2 NS + 20 MEQ KCL AT 50 ML/HR VIA PICC LINE TO RIGHT UPPER ARM. ABDOMEN IS SOFT, HYPOACTIVE BOWEL SOUNDS. ON CONTINOUS TUBE FEEDING NEPRO 30 ML/HR VIA NGT, TOLERATED. WITH RAMÍREZ CATH IN PLACE.
--- NOTE | 2021-06-03 20:13 | NUR ---
FOLLOW UP ABG PERFORMED AND RESULTS ARE FOLLOWS ... PH 7.36 CO2 55.4 HCO3 30.6 PO2 88.1 BE 4.4 NO CHANGES MADE TO VENT ( PRE/POST ABG ) AT THIS TIME Addendum: 06/03/21 at 2020 by Jesus Patino Jr RT DR GUSTAVO VALIENTE
--- NOTE | 2021-06-03 21:00 | NUR ---
TURNED AND REPOSITIONED PATIENT.
[2021-06-04] VITALS (28 sets, daily range): BP systolic 87–155; BP diastolic 47–83
[2021-06-04] MEDS: PIPERACILLIN/TAZOBACTAM 4.5 GM in NACL 0.9% 100 ML IV SCH ×4 (03:00→20:45)
--- NOTE | 2021-06-04 04:00 | NUR ---
HAD BM TO A MODERATE AMOUNT OF SOFT PASTY TO BLACKISH STOOL; SPECIMEN SENT TO LAB FOR STOOL OCCULT BLOOD. MORNING BED BATH DONE; KEPT CLEAN DRY AND COMFORTABLE.
[2021-06-04] MEDS: ACETAZOLAMIDE SOD 250 MG TAB PO SCH ×4 (05:30→17:23)
[2021-06-04 06:04] LABS: ANION GAP 8.1 (8-16); CARBON DIOXIDE 31.1 mmol/L (21-32); CREATININE 1.3 mg/dL (0.6-1.3); POTASSIUM 3.2 mmol/L (3.5-5.1)
[2021-06-04 06:42] LABS: BASOPHILS # (AUTO) 0.1 K/uL (0.00-0.22); BASOPHILS % (AUTO) 0.7 % (0.0-2.0); EOSINOPHILS # (AUTO) 0.4 K/uL (0-0.4); EOSINOPHILS % (AUTO) 4.7 % (0.0-4.0); HEMOGLOBIN 7.1 g/dL (12.0-18.0); LYMPHOCYTES # (AUTO) 0.8 K/uL (2.0-11.5); LYMPHOCYTES % (AUTO) 8.4 % (20.5-51.1); MEAN CORPUSCULAR HEMOGLOBIN 24 pg (27-31); MEAN CORPUSCULAR HGB CONC 31 g/dL (33-37); MEAN CORPUSCULAR VOLUME 78.4 fL (80-94); MONOCYTES % (AUTO) 10.7 % (1.7-9.3); NEUTROPHILS % (AUTO) 75.5 % (42.2-75.2); PLATELET COUNT (AUTO) 178 K/uL (140-450); RED BLOOD CELL COUNT(AUTO) 2.94 MIL/uL (4.20-6.10); RED CELL DISTRIBUTION WIDTH 19.3 % (11.6-13.7); WHITE BLOOD COUNT (AUTO) 9.3 K/uL (4.8-10.8)
[2021-06-04 06:46] LABS: MAGNESIUM 1.9 mg/dL (1.8-2.4); PHOSPHORUS 4.3 mg/dL (2.5-4.9)
[2021-06-04] MEDS: ALBUTEROL SULFATE/IPRATROPIU 3 ML SOL IH SCH ×3 (07:14→21:22)
--- NOTE | 2021-06-04 07:15 | NUR ---
RECEIVED BEDSIDE REPORT FROM BROOKE RN FOR CONTINUITY OF CARE. PT OFF SEDATION. OPENS EYES BUT DOES NOT TRACK AT THIS TIME. ETT TO VENT, ACVC, FIO2 32%, VT 450, RATE 24, PEEP 0. CARIN PICC LINE RUNNING NACL 0.45% KCL AT 50ML/HR. INTACT AND PATENT. RIGHT LATERAL CHEST TUBE TO 30MMHG SUCTION. SEROUS DRAINAGE. BOWEL SOUNDS ACTIVE. ABDOMEN SOFT. NGT TO TUBE FEEDING. NEPRO AT 30ML/HR. RAMÍREZ IN PLACE WITH CLEAR YELLOW URINE. DRESSINGS TO BLE CLEAN DRY AND INTACT. SEE WOUND ASSESSMENT. ALL SAFETY PRECAUTIONS MET. CALL LIGHT WITHIN REACH. INITIAL ASSESSMENT COMPLETE, WILL CONTINUE TO CLOSELY MONITOR.
--- NOTE | 2021-06-04 07:15 | NUR ---
RECEIVED ON A DOZIER (MEDONE #[id number]) VENTILATOR PLUGGED INTO RED OUTLET TOLERATING WELL WITHOUT ADVERSE REACTIONS NOTED TO AN ENDOTRACHEAL TUBE #8.0 SECURED AT 24cm TEETH/GUM LINE SECURED WITH BLUE ETT TAPE CUFF PRESSURE CHECKED NOTED AMBU BAG AT BEDSIDE RESTING COMFORTABLY GOOD CHEST RISE ENDOTRACHEAL SUCTION FOR MODERATE THIN YELLOW/HAZY SECRETIONS AIRWAY PATENT
[2021-06-04] MEDS: POTASSIUM CHLORIDE IV SCH (08:00)
[2021-06-04] MEDS: NACL 0.45% IV SCH (08:00)
[2021-06-04] MEDS: FAMOTIDINE 20 MG/2 ML VIAL IV SCH ×2 (08:06→20:45)
--- NOTE | 2021-06-04 08:50 | NUR ---
DR NICOLE UPDATED VIA TELEPHONE REGARDING PT CONDITION.
--- NOTE | 2021-06-04 09:00 | NUR ---
SCHEDULED MEDS ADMINISTERED PER MD ORDER. ORAL CARE PERFORMED. TOLERATED WELL. MODERATE AMOUNT OF SECRETIONS. WILL CONTINUE TO CLOSELY MONITOR.
--- NOTE | 2021-06-04 09:10 | NUR ---
SEEN AND EXAMINED BY DR THOMAS.
--- NOTE | 2021-06-04 11:19 | NUR ---
NO APPARENT RESPIRATORY DISTRESS NOTED EQUAL CHEST RISE AIRWAY PATENT
--- NOTE | 2021-06-04 12:30 | NUR ---
SEEN AND EXAMINED BY DR WINTER. NO NEW ORDERS AT THIS TIME.
--- NOTE | 2021-06-04 13:01 | NUR ---
06/04/21 RD FOLLOW UP COMPLETED PLEASE REFER TO NUTRITION ASSESSMENT UNDER CARE ACTIVITY FOR ESTIMATED NUTRITIONAL NEEDS. 1. CONTINUE NEPRO @ 30 ML/HR TOLERATED -WATER FLUSH: 50 ML Q6H OR PER MD -PROVIDES 1296 KCAL AND 58 GM PROTEIN -WITH D5W, PT RECEIVES > 75% ESTIMATED NUTRITION NEEDS 2. MONITOR GI SYMPTOMS 3. RD TO FOLLOW-UP 3-5 DAYS, MODERATE RISK LEESA ESPINOSA RD
--- NOTE | 2021-06-04 13:33 | NUR ---
RESTING WELL NO SOB NOTED GOOD CHEST RISE ENDOTRAC HEAL SUCTION FOR COPIOUS SEMI THICK PALE YELLOW SECRETIONS AIRWAY PATENT
[2021-06-04] MEDS: NON ADHERENT DRESSING TP SCH (13:45)
[2021-06-04] MEDS ORDERED: VANCOMYCIN PER PHARMACY MC PRN (15:15)
--- NOTE | 2021-06-04 16:53 | NUR ---
PT CLEANED AND REPOSITIONED. TOLERATED WELL. WILL CONTINUE TO MONITOR.
--- NOTE | 2021-06-04 19:20 | NUR ---
Received report from ANNE Ogden FOCUSED FACTORY MANAGER.All questions answered. Changes noted: ETT to Vent settings AC/VC Rate= 24,FiO2=32%,LH=882, NO PEEP. IVF= 1/2 NS+30meq KCL @5ml/hr on CARIN PICC ( 2 lumen), BM x1 soft, Dark brown, medium. Chahal to gravity 1700ml out.
--- NOTE | 2021-06-04 19:28 | NUR ---
ENDORSED BEDSIDE REPORT TO LATRICE REEVES FOR CONTINUITY OF CARE.
--- NOTE | 2021-06-04 21:00 | NUR ---
Due medications given, tolerated well. But will still continue to monitor for any signs & symptoms of adverse reactions.
[2021-06-05] VITALS (29 sets, daily range): BP systolic 71–152; BP diastolic 40–100
--- NOTE | 2021-06-05 | NUR ---
Patient lying in Bed quietly, No pain or discomfort noted at this time. Continue monitoring Vital signs per order. Turn & reposition q2h for comfort & to prevent decubs..
[2021-06-05] MEDS: ALBUTEROL SULFATE/IPRATROPIU 3 ML SOL IH SCH ×4 (00:38→20:14)
[2021-06-05] MEDS: ACETAZOLAMIDE SOD 250 MG TAB PO SCH ×2 (01:09→05:48)
[2021-06-05] MEDS: PIPERACILLIN/TAZOBACTAM 4.5 GM in NACL 0.9% 100 ML IV SCH ×4 (03:33→20:34)
--- NOTE | 2021-06-05 04:40 | NUR ---
Total care given, Pericare done, Change gown, linen & chaulks, Tolerated well. Made clean, dry, & comfortable.
--- NOTE | 2021-06-05 06:49 | NUR ---
Nopain or discomfort noted at this time.
[2021-06-05 06:54] LABS: ANION GAP 8.1 (8-16); CARBON DIOXIDE 30.1 mmol/L (21-32); CREATININE 1.3 mg/dL (0.6-1.3); POTASSIUM 3.2 mmol/L (3.5-5.1)
[2021-06-05 06:58] LABS: PHOSPHORUS 4.3 mg/dL (2.5-4.9)
[2021-06-05 07:01] LABS: BASOPHILS % (AUTO) 0.5 % (0.0-2.0); EOSINOPHILS # (AUTO) 0.4 K/uL (0-0.4); EOSINOPHILS % (AUTO) 4.4 % (0.0-4.0); HEMATOCRIT 22.2 % (36-52); LYMPHOCYTES # (AUTO) 0.7 K/uL (2.0-11.5); LYMPHOCYTES % (AUTO) 7.5 % (20.5-51.1); MEAN CORPUSCULAR HEMOGLOBIN 24 pg (27-31); MEAN CORPUSCULAR HGB CONC 31 g/dL (33-37); MEAN CORPUSCULAR VOLUME 78.6 fL (80-94); MONOCYTES # (AUTO) 1.1 K/uL (0.8-1.0); MONOCYTES % (AUTO) 11.6 % (1.7-9.3); NEUTROPHILS # (AUTO) 6.9 K/uL (1.8-7.7); PLATELET COUNT (AUTO) 166 K/uL (140-450); RED BLOOD CELL COUNT(AUTO) 2.82 MIL/uL (4.20-6.10); RED CELL DISTRIBUTION WIDTH 19.5 % (11.6-13.7); WHITE BLOOD COUNT (AUTO) 9.1 K/uL (4.8-10.8)
--- NOTE | 2021-06-05 07:10 | NUR ---
RECEIVED BEDSIDE REPORT FROM LATRICE REEVES FOR CONTINUITY OF CARE. PT OFF SEDATION. OPENS EYES BUT DOES NOT TRACK AT THIS TIME. ETT TO VENT, ACVC, FIO2 32%, VT 450, RATE 24, PEEP 0. CARIN PICC LINE RUNNING NACL 0.45% KCL AT 5 ML/HR. INTACT AND PATENT. RIGHT LATERAL CHEST TUBE TO 30MMHG CONTINUOUS SUCTION. SEROUS DRAINAGE. BOWEL SOUNDS ACTIVE. ABDOMEN SOFT. NGT TO TUBE FEEDING. NEPRO AT 30ML/HR. RAMÍREZ IN PLACE WITH CLEAR YELLOW URINE. DRESSINGS TO BLE CLEAN DRY AND INTACT. SEE WOUND ASSESSMENT. ALL SAFETY PRECAUTIONS MET. CALL LIGHT WITHIN REACH. INITIAL ASSESSMENT COMPLETE, WILL CONTINUE TO CLOSELY MONITOR.
[2021-06-05 07:15] LABS: HEMOGLOBIN 6.8 g/dL (12.0-18.0)
--- NOTE | 2021-06-05 07:15 | NUR ---
CRITICAL LAB VALUE HGB 6.8. CALLED DR SAN. NO NEW ORDERS AT THIS TIME. WILL CONTINUE TO CLOSELY MONITOR
--- NOTE | 2021-06-05 07:16 | NUR ---
RECEIVED ON A DOZIER VENTILATOR ([employer] #1830) PLUGGED INTO RED OUTLET TOLERATING WELL WITHOUT ADVERSE REACTIONS NOTED TO AN ENDOTRACHEAL TUBE #8.0 SECURED AT 24cm TEETH/GUM LINE WITH BLUE ETT TAPE CUFF PRESSURE CHECKED NOTED AMBU BAG AT BEDSIDE NO EVIDENCE OF PULMONARY DISTRESS NOTED GOOD CHEST RISE AND AERATION THROUGHOUT BILATERAL LUNG WARREN AIRWAY PATENT
[2021-06-05] MEDS: NACL 0.45% IV SCH (07:30)
[2021-06-05] MEDS: POTASSIUM CHLORIDE IV SCH (07:30)
[2021-06-05] MEDS: FAMOTIDINE 20 MG/2 ML VIAL IV SCH ×2 (08:19→20:34)
[2021-06-05] MEDS: POTASSIUM CHLORIDE 20% 40 MEQ/15 ML UDC GT PRN (08:20)
[2021-06-05] MEDS ORDERED: VANCOMYCIN HCL 1.25 GM in DEXTROSE 5% 250 ML IV SCH (09:00)
--- NOTE | 2021-06-05 09:00 | NUR ---
SCHEDULED MEDS ADMINISTERED PER MD ORDER. NADR. K 3.2. COVERED WITH 40 MEQ GIVEN PER PRN ORDERS.
--- NOTE | 2021-06-05 09:40 | NUR ---
SEEN AND EXAMINED BY DR THOMAS.
--- NOTE | 2021-06-05 11:10 | NUR ---
NO EVIDENCE OF RESPIRATORY DISTRESS NOTED GOOD CHEST RISE AND AERATION THROUGHOUT BILATERAL LUNG WARREN AIRWAY PATENT REPOSITIONED ENDOTRACHEAL TUBE TO RIGHT SIDE RETAPED AT 24cm TEETH/GUM LINE
--- NOTE | 2021-06-05 12:47 | NUR ---
SEEN AND EXAMINED BY DR SAN.
--- NOTE | 2021-06-05 12:50 | NUR ---
SEEN AND EXAMINED BY DR COBOS. NO ORDERS AT THIS TIME.
[2021-06-05] MEDS: NON ADHERENT DRESSING TP SCH (13:21)
--- NOTE | 2021-06-05 13:59 | NUR ---
NO DISTRESS NOTED GOOD CHEST RISE ENDOTRACHEAL SUCTION FOR LARGE SEMI THICK PALE YELLOW SECRETIONS AIRWAY PATENT WATER SEAL CHEST DRAINAGE REMAINS ON AND FUNCTIONING WELL
--- NOTE | 2021-06-05 15:50 | NUR ---
STARTED BLOOD TRANSFUSION WITH MALCOLM RN WITNESS.
--- NOTE | 2021-06-05 16:00 | NUR ---
PT CLEANED AND REPOSITIONED. PT TOLERATED WELL. WILL CONTINUE TO CLOSELY MONITOR.
--- NOTE | 2021-06-05 18:10 | NUR ---
BLOOD TRANSFUSION ENDED. NO SIGNS OF INFUSION REACTION. SEE BLOOD TRANSFUSION RECORD IN PAPER CHART.
--- NOTE | 2021-06-05 19:20 | NUR ---
Received report from ANNE Ogden PAPER REWINDER OPERATOR.All questions answered. Changes noted: GIVEN 1unit PRBC for Hgb=6.8, BM x1 soft, Dark brown, medium. Chahal to gravity 1100ml out. For LTAC now. Surgical consult with Dr. Al Faulkner for Trach & PEG.
--- NOTE | 2021-06-05 19:22 | NUR ---
ENDORSED BEDSIDE REPORT TO LATRICE REEVES FOR CONTINUITY OF CARE.
--- NOTE | 2021-06-05 21:15 | NUR ---
Due medications given, tolerated well. But will still continue to monitor for any signs & symptoms of adverse reactions. Monitor Vital signs as ordered.
[2021-06-06] VITALS (31 sets, daily range): BP systolic 117–148; BP diastolic 52–85
--- NOTE | 2021-06-06 00:05 | NUR ---
Turn and Reposition patient q2h for comfort. Tolerated well. No signs & symptoms of pain or discomfort noted at this time.
[2021-06-06] MEDS: ALBUTEROL SULFATE/IPRATROPIU 3 ML SOL IH SCH ×4 (00:18→19:00)
[2021-06-06] MEDS: PIPERACILLIN/TAZOBACTAM 4.5 GM in NACL 0.9% 100 ML IV SCH ×4 (02:45→20:41)
--- NOTE | 2021-06-06 05:30 | NUR ---
Total care given, pericare done, change gown , linen & chaulks, tolerated well. Made clean, dry & comfortable.
[2021-06-06 05:56] LABS: BASOPHILS # (AUTO) 0.1 K/uL (0.00-0.22); BASOPHILS % (AUTO) 0.7 % (0.0-2.0); EOSINOPHILS # (AUTO) 0.4 K/uL (0-0.4); EOSINOPHILS % (AUTO) 4.3 % (0.0-4.0); HEMATOCRIT 24.7 % (36-52); HEMOGLOBIN 7.8 g/dL (12.0-18.0); LYMPHOCYTES # (AUTO) 0.8 K/uL (2.0-11.5); MEAN CORPUSCULAR HEMOGLOBIN 25 pg (27-31); MEAN CORPUSCULAR HGB CONC 31 g/dL (33-37); MEAN CORPUSCULAR VOLUME 79.5 fL (80-94); MONOCYTES % (AUTO) 11.2 % (1.7-9.3); NEUTROPHILS # (AUTO) 6.7 K/uL (1.8-7.7); NEUTROPHILS % (AUTO) 74.8 % (42.2-75.2); PLATELET COUNT (AUTO) 177 K/uL (140-450); RED BLOOD CELL COUNT(AUTO) 3.11 MIL/uL (4.20-6.10)
[2021-06-06 06:28] LABS: ANION GAP 7.9 (8-16); CARBON DIOXIDE 29.2 mmol/L (21-32); CREATININE 1.3 mg/dL (0.6-1.3); POTASSIUM 3.1 mmol/L (3.5-5.1)
[2021-06-06 06:46] LABS: MAGNESIUM 1.9 mg/dL (1.8-2.4); PHOSPHORUS 3.7 mg/dL (2.5-4.9)
--- NOTE | 2021-06-06 07:07 | NUR ---
RECEIVED ON A [address] VENTILATOR ([employer] #1830) PLUGGED INTO RED OUTLET TOLERATING WELL WITHOUT ADVERSE REACTIONS NOTED TO AN ENDOTRACHEAL TUBE (ETT) #8.0 SECURED AT 24cm WITH A BLUE ETT TAPE CUFF PRESSURE CHECKED NOTED AMBU BAG AT BEDSIDE RESTING COMFORTABLY NO DISTRESS NOTED EQUAL CHEST RISE ENDOTRACHEAL SUCTION FOR MODERATE THIN YELLOW SECRETIONS AIRWAY PATENT
--- NOTE | 2021-06-06 07:10 | NUR ---
Report given to ANNE Nayak ENERGY SYSTEMS LABORATORY DIRECTOR. All questions answered.
--- NOTE | 2021-06-06 07:20 | NUR ---
OPENING NOTE: REPORT RCVD FROM OUTGOING NOC RN, ALL CARES ASSUMED.
[2021-06-06] MEDS: FAMOTIDINE 20 MG/2 ML VIAL IV SCH ×2 (08:38→20:42)
[2021-06-06] MEDS: POTASSIUM CHLORIDE IV SCH (08:41)
[2021-06-06] MEDS: NACL 0.45% IV SCH (08:41)
[2021-06-06] MEDS ORDERED: POTASSIUM CHLORIDE 10 MEQ in NACL 0.9% 100 ML IV SCH (08:55)
[2021-06-06] MEDS ORDERED: KCL 20 MEQ/WATER INJ PREMIX 100 ML IV SCH (09:00)
--- NOTE | 2021-06-06 09:30 | NUR ---
PHARMACY RC'VD CLARIFICATION R/T K+ ORDERS PLACED BY .
--- NOTE | 2021-06-06 10:00 | NUR ---
PT CLEANED AND REPOSITIONED. PT TOLERATED WELL. WILL CONTINUE TO CLOSELY MONITOR.
[2021-06-06] MEDS: KCL 20 MEQ/WATER INJ PREMIX 100 ML IV SCH ×3 (10:05→14:08)
[2021-06-06] MEDS: ACETAMINOPHEN 325 MG TAB PO PRN (10:45)
--- NOTE | 2021-06-06 10:45 | NUR ---
TEMP 101.6, COOLING MEASURES IN PLACE.
--- NOTE | 2021-06-06 10:48 | NUR ---
CARDIOLOGY MD MAKING ROUNDS, VERBAL REPORT GIVEN. NO NEW ORDERS PLACED AT THIS TIME.
--- NOTE | 2021-06-06 11:23 | NUR ---
STABLE EQUAL CHEST RISE ENDOTRACHEAL SUCTION FOR MODERATE THIN PALE YELLOW SECRETIONS AIRWAY PATENT CHEST TUBE REMAINS AT RIGHT SIDE WATER SEAL DRAINAGE FUNCTIONING WELL VACUUM/SUCTION CONTINUOS AT 20mmHg Addendum: 06/06/21 at 1314 by Jef Pat RT REMOVED BLUE ETT TAPE; SECURED ENDOTRACHEAL TUBE (ETT) AT 24cm TEETH/GUM LINE WITH AN ANCHOR FAST TOLERATED PROCEDURE WITHOUT COMPLICATIONS NOTED
--- NOTE | 2021-06-06 11:25 | NUR ---
DR. SAN MAKING ROUNDS, VERBAL REPORT GIVEN AT BEDSIDE. NEW ORDERS PLACED AND TRANSCRIBED. PER MD PLACED CHEST TUBE TO WATER SEAL.
--- NOTE | 2021-06-06 12:45 | NUR ---
DR. WINTER MAKING ROUNDS, VERBAL BEDSIDE REPORT GIVEN. CHEST TUBE TO WATER SEAL. NEW ORDER RCVD AND TRANSCRIBED.
[2021-06-06] MEDS: NON ADHERENT DRESSING TP SCH (13:00)
--- NOTE | 2021-06-06 13:00 | NUR ---
WOUND CARE COMPLETED ORDERED,PT TOLERATED WELL.
--- NOTE | 2021-06-06 15:02 | NUR ---
RN ROUNDS: PATIENT REPOSITIONED, NEW LINENS APPLIED, GOWN CHANGED, BETO-CARE PERFORMED, RAMÍREZ CATHETER BAG EMPTIED.
[2021-06-06] MEDS: ACETAMINOPHEN 650 MG/20.3 ML UDC NG PRN (15:48)
--- NOTE | 2021-06-06 15:49 | NUR ---
TEMP 101.8, TYLENOL GIVEN PRN.CONTINUE WITH COOLING MEASURES.
--- NOTE | 2021-06-06 16:29 | NUR ---
DR. NIEVES MAKING ROUNDS, VERBAL REPORT GIVEN AT BEDSIDE.
--- NOTE | 2021-06-06 18:50 | NUR ---
CLOSING NOTE: REPORT GIVEN TO INCOMING NOC RN, ALL CARE ENDORSED.
[2021-06-06 18:57] LABS: ANION GAP 7.1 (8-16); CARBON DIOXIDE 29.6 mmol/L (21-32); CREATININE 1.4 mg/dL (0.6-1.3); POTASSIUM 3.7 mmol/L (3.5-5.1)
--- NOTE | 2021-06-06 19:19 | NUR ---
Report given by ANNE Nayak VARNISH MELTER HELPER. Questions answered. Changesnoted ETT to Vent FiO2= 30%, Awaiting for Surgical consult ( Trach & PEG)
--- NOTE | 2021-06-06 20:05 | NUR ---
came to see patient for Surgical consult for Trach & PEG. Plans to do tomorrow,2 MD needs to sign consent ( patient has NO Family)
--- NOTE | 2021-06-06 21:10 | NUR ---
Due medications given, tolerated well. Will continue to monitor for any signs & symptoms of adverse reactions.
[2021-06-07] VITALS (31 sets, daily range): BP systolic 123–157; BP diastolic 57–98
--- NOTE | 2021-06-07 00:09 | NUR ---
Turn & reposition as ordered. No pain or discomfort noted at this time.
[2021-06-07] MEDS: ALBUTEROL SULFATE/IPRATROPIU 3 ML SOL IH SCH ×4 (00:22→19:18)
[2021-06-07] MEDS: PIPERACILLIN/TAZOBACTAM 4.5 GM in NACL 0.9% 100 ML IV SCH ×4 (03:12→21:16)
--- NOTE | 2021-06-07 04:30 | NUR ---
Total care given, pericare done, BMx1 loose, blacktarry stool, Change gown, Linen, Chaulks. Made clean, dry & comfortable, Tolerated well. Patient was NPO post Midnight for Trach & PEG today.
[2021-06-07 06:07] LABS: BASOPHILS # (AUTO) 0.1 K/uL (0.00-0.22); BASOPHILS % (AUTO) 0.9 % (0.0-2.0); EOSINOPHILS # (AUTO) 0.5 K/uL (0-0.4); EOSINOPHILS % (AUTO) 5.2 % (0.0-4.0); HEMATOCRIT 26.5 % (36-52); HEMOGLOBIN 8.2 g/dL (12.0-18.0); LYMPHOCYTES # (AUTO) 0.8 K/uL (2.0-11.5); LYMPHOCYTES % (AUTO) 9.5 % (20.5-51.1); MEAN CORPUSCULAR HEMOGLOBIN 25 pg (27-31); MEAN CORPUSCULAR HGB CONC 31 g/dL (33-37); MEAN CORPUSCULAR VOLUME 79.4 fL (80-94); MONOCYTES # (AUTO) 0.9 K/uL (0.8-1.0); MONOCYTES % (AUTO) 10.9 % (1.7-9.3); NEUTROPHILS # (AUTO) 6.4 K/uL (1.8-7.7); NEUTROPHILS % (AUTO) 73.5 % (42.2-75.2); PLATELET COUNT (AUTO) 185 K/uL (140-450); RED BLOOD CELL COUNT(AUTO) 3.34 MIL/uL (4.20-6.10); RED CELL DISTRIBUTION WIDTH 20.4 % (11.6-13.7); WHITE BLOOD COUNT (AUTO) 8.7 K/uL (4.8-10.8)
[2021-06-07 06:17] LABS: ANION GAP 10.2 (8-16); CARBON DIOXIDE 27.1 mmol/L (21-32); CREATININE 1.3 mg/dL (0.6-1.3); POTASSIUM 3.3 mmol/L (3.5-5.1)
--- NOTE | 2021-06-07 06:39 | NUR ---
Tolerating Ventilator Well, O2 sat= 96%, RR=23, Still NPO for Trach & PEG this afternoon. .
[2021-06-07 07:01] LABS: PHOSPHORUS 4.1 mg/dL (2.5-4.9)
--- NOTE | 2021-06-07 07:22 | NUR ---
Endorse patient to ANNE Nayak MANAGER EMS, All questions answered. Patient to be Trach & PEG today, NPO post MN. Consent signed by & needs one more signature. (Patient has NO Family & 2 MD has to Sign)
--- NOTE | 2021-06-07 07:28 | NUR ---
OPENING NOTE: REPORT RC'VD FROM OUTGOING NOC RN, ALL CARES ASSUMED.
[2021-06-07] MEDS: POTASSIUM CHLORIDE 20% 40 MEQ/15 ML UDC GT PRN (07:34)
--- NOTE | 2021-06-07 07:35 | NUR ---
K+ replaced with protocol order via NG tube. Will notify MD upon rounds.
[2021-06-07] MEDS: POTASSIUM CHLORIDE IV SCH (08:23)
[2021-06-07] MEDS: NACL 0.45% IV SCH (08:23)
[2021-06-07] MEDS: FAMOTIDINE 20 MG/2 ML VIAL IV SCH ×2 (08:24→21:16)
[2021-06-07] MEDS ORDERED: VANCOMYCIN HCL 1.25 GM in DEXTROSE 5% 250 ML IV SCH (09:00)
--- NOTE | 2021-06-07 11:51 | NUR ---
CARDIOLOGY MD MAKING ROUNDS, VERBAL BEDSIDE REPORT GIVEN. MADE MD AWARE OF K+ RESULT AND EPISODES OF HTN. MD TO PLACE PRN ORDER FOR HTN.
[2021-06-07] MEDS ORDERED: LABETALOL 100 MG/20 ML VIAL IV PRN (11:55)
--- NOTE | 2021-06-07 11:59 | NUR ---
RN ROUNDS: PATIENT REPOSITIONED, NEW LINENS AND GOWN APPLIED. LARGE LOOSE BM, BETO-CARE PERFORMED, RAMÍREZ BELOW LEVEL OF BLADDER. BED LOW AND LOCKED. CALL LIGHT WITHIN REACH. ALL NEEDS MET AT THIS TIME. PATIENT STABLE IN NO ACUTE DISTRESS AND OR DISCOMFORT.
[2021-06-07] MEDS: NON ADHERENT DRESSING TP SCH (13:00)
[2021-06-07] MEDS ORDERED: BUPIVACAINE-MPF/EPI 0.25% 10 ML VIAL INJ ONE (13:40)
--- NOTE | 2021-06-07 14:00 | NUR ---
WOUND CARE COMPLETED ORDERED, PATIENT TOLERATED WELL.
--- NOTE | 2021-06-07 14:13 | NUR ---
PATIENT TAKEN TO OR BY OR TEAM, PLACED ONTO PORTABLE MONITOR, REPORT GIVEN AT BEDSIDE TO OR NURSE. PATIENT IDENTIFICATION MADE, ALL QUESTIONS ANSWERED. CONSENT WITH CHART GIVEN TO TEAM.
--- NOTE | 2021-06-07 15:08 | NUR ---
PT RETURNED FROM OR WITH NEW TRACH PORTEX 8. SLIGHT REDNESS NOTED AROUND STOMA SITE. PT PLACED BACK ON VENT WITH ORIGINAL DOCUMENTED VENT SETTINGS. ALARMS ON AND FUNCTIONING. AIRWAY IS PATENT AND SECURE WITH SUTURES. WILL CONTINUE TO MONITOR.
--- NOTE | 2021-06-07 15:10 | NUR ---
WOUND CARE RE-EVALUATION PENDING, PT. JUST RETURN BACK FROM OR, WOUND CARE DONE BY PRIMARY RN EARLIER.
--- NOTE | 2021-06-07 15:12 | NUR ---
PATIENT RETURNED FROM OR, 8.0 PORTEX TRACH PLACED, EQUAL CHEST RISE AND FALL, NO SIGNS OF BLEEDING AT SITE. PEG TUBE PLACED INTO LUQ, SITE CLEAN, DRY AND NO SIGNS OF BLEEDING NOTE. PER MD DR. MCNALLY Comment: <MAY USE GTUBE FOR PO MEDS NOW, START TF ON THURSDAY (POD#1) AM>
--- NOTE | 2021-06-07 15:13 | NUR ---
XRAY AT BEDSIDE.
[2021-06-07] MEDS: ACETAMINOPHEN 650 MG/20.3 ML UDC NG PRN (16:23)
--- NOTE | 2021-06-07 16:24 | NUR ---
TEMP 101.2 , TYLENOL GIVEN PRN.
--- NOTE | 2021-06-07 16:39 | NUR ---
DR. NIEVES MAKING ROUNDS, VERBAL REPORT GIVEN AT BEDSIDE.
--- NOTE | 2021-06-07 18:31 | NUR ---
RN ROUNDS: ORAL CARE PROVIDED, PATIENT REPOSITIONED WITH PILLOW SUPPORT. RAMÍREZ BAG EMPTIED, ALL CARES PROVIDED, BED LOW AND LOCKED FOR SAFETY. NEEDS MET AT THIS TIME, WILL ENDORSE TO NOC RN.
--- NOTE | 2021-06-07 18:55 | NUR ---
CLOSING NOTE: REPORT GIVEN AT BEDSIDE TO NOC RN, ALL CARES ENDORSED.
[2021-06-08] VITALS (30 sets, daily range): BP systolic 111–145; BP diastolic 62–98
--- NOTE | 2021-06-08 00:57 | NUR ---
PATIENT STABLE HEMODINAMICLY NO SIGNS OF PAIN VITALS SIGNS IN NORMALLIMITS VOLUMEN CONTROL ON VENTILATOR FIO2 30 % ST 102 ON MONITOR AFEBRIL AT THIS TIME IT DOESNT SEEM LIKE A LOT OF BRAIN ACTIVITIES PUPILSEQUALS SIZE 2 NOT REACTING KAREN //DiCaprio RN
[2021-06-08] MEDS: ALBUTEROL SULFATE/IPRATROPIU 3 ML SOL IH SCH ×3 (01:26→19:31)
[2021-06-08] MEDS: PIPERACILLIN/TAZOBACTAM 4.5 GM in NACL 0.9% 100 ML IV SCH (03:27)
[2021-06-08 05:46] LABS: BASOPHILS # (AUTO) 0.1 K/uL (0.00-0.22); BASOPHILS % (AUTO) 0.6 % (0.0-2.0); EOSINOPHILS # (AUTO) 0.4 K/uL (0-0.4); EOSINOPHILS % (AUTO) 4.2 % (0.0-4.0); HEMATOCRIT 25.7 % (36-52); HEMOGLOBIN 8.1 g/dL (12.0-18.0); LYMPHOCYTES # (AUTO) 0.8 K/uL (2.0-11.5); LYMPHOCYTES % (AUTO) 8.7 % (20.5-51.1); MEAN CORPUSCULAR HEMOGLOBIN 25 pg (27-31); MEAN CORPUSCULAR HGB CONC 32 g/dL (33-37); MEAN CORPUSCULAR VOLUME 79.2 fL (80-94); MONOCYTES % (AUTO) 10.6 % (1.7-9.3); NEUTROPHILS # (AUTO) 7.2 K/uL (1.8-7.7); NEUTROPHILS % (AUTO) 75.9 % (42.2-75.2); PLATELET COUNT (AUTO) 209 K/uL (140-450); RED BLOOD CELL COUNT(AUTO) 3.24 MIL/uL (4.20-6.10); RED CELL DISTRIBUTION WIDTH 21.1 % (11.6-13.7); WHITE BLOOD COUNT (AUTO) 9.5 K/uL (4.8-10.8)
[2021-06-08 05:48] LABS: ANION GAP 11.3 (8-16); CARBON DIOXIDE 27.1 mmol/L (21-32); CREATININE 1.4 mg/dL (0.6-1.3); POTASSIUM 3.4 mmol/L (3.5-5.1)
[2021-06-08] MEDS: NACL 0.45% IV SCH ×2 (05:54→13:31)
[2021-06-08] MEDS: POTASSIUM CHLORIDE IV SCH ×2 (05:54→13:31)
[2021-06-08 06:02] LABS: MAGNESIUM 1.9 mg/dL (1.8-2.4); PHOSPHORUS 4.1 mg/dL (2.5-4.9)
--- NOTE | 2021-06-08 06:45 | NUR ---
PATIENT STABLE NEUROLOGICALLY UNASTABLE NOT RESPONSED TO STIMULIS PUPILS ISOCORICS SIZE 2 UNABLE TO TRACK AND IT DOESNT OPEN HIS EYES SPONTANEUSLLY NOT SIGNS OF PAIN VITALS SIGNS IN NORMAL LIMITS //DiCaprio RN
--- NOTE | 2021-06-08 07:30 | NUR ---
RECEIVED REPORT FROM JIGAR REEVES. PT IN BED TRACH TO VENT O2 SAT 95% % iv fluid has PICC ON RT UPPER ARM INFUSING NS.45 WITH K 30 MEQ RUNNING 2 5ML/HR. RAMÍREZ DRAIN CLEAR SUBHA URINEWOUND DRESSING DRY AND INTACT.
[2021-06-08] MEDS: FAMOTIDINE 20 MG/2 ML VIAL IV SCH ×2 (09:00→21:45)
--- NOTE | 2021-06-08 10:27 | NUR ---
(06/08/21) RD FOLLOW UP COMPLETED PLEASE REFER TO NUTRITION PROGRESS NOTE UNDER CARE ACTIVITY FOR ESTIMATED NUTRITION NEEDS. RD RECOMMENDATIONS: 1. IF/WHEN MEDICALLY APPROPRIATE, RESUME TUBE FEEDINGS. 2. RECOMMEND D/C TUBE FEEDING NEPRO D/T PT WITH NO HX DIALYSIS AND CURRENTLY NOT REQUIRING DIALYSIS. 3. RECOMMEND STARTING TUBE FEEDING GLUCERNA 1.2 DUE TO PMHX T2DM: GLUCERNA 1.2 TO START AT 30 ML/HR, INCREASING BY 10 ML/HR Q4H TOLERATED, UNTIL GOAL RATE OF 60 ML/HR IS REACHED. GLUCERNA 1.2 AT 60 ML/HR WILL PROVIDE 1440 ML TOTAL VOLUME, 1728 KCAL, 86 GM PROTEIN, AND 1391 ML FREE WATER. THIS WILL MEET 85% EST KCAL NEEDS AND >100% EST PROTEIN NEEDS. 3. RECOMMEND FREE WATER FLUSH 90 ML Q4H (540 ML) 4. RD TO FOLLOW-UP 2-3 DAYS, HIGH RISK MAYRA DIAZ, MS, RDN
--- NOTE | 2021-06-08 10:37 | NUR ---
CHECKED PT FOR VENT CHECK AND FOUND PT ON PEEP OF +5. PREVIOUS SETTING WAS PEEP OF 0. PT TOLERATING ADDED PEEP. WILL CONT TO MONITOR
--- NOTE | 2021-06-08 13:02 | NUR ---
VISIT BY GREER ALCARAZ AT BED SIDE. Addendum: 06/08/21 at 1303 by Cindy Garrett RN THIS NOTE IS NOT FOR THIS PATIENT.
--- NOTE | 2021-06-08 13:20 | NUR ---
SEEN BY DR. MCNALLY PT. CAN HAVE TUBE FEEDING.
[2021-06-08] MEDS: PIPERACILLIN/TAZOBACTAM 3.375 GM in DEXTROSE 5% 50 ML IV SCH ×2 (13:31→21:45)
[2021-06-08] MEDS: NON ADHERENT DRESSING TP SCH (13:31)
[2021-06-08] MEDS: ACETAMINOPHEN 650 MG/20.3 ML UDC NG PRN (13:33)
--- NOTE | 2021-06-08 13:34 | NUR ---
TEMP 101.4 TYLENOL GIVEN ORDERD.
--- NOTE | 2021-06-08 19:30 | NUR ---
GIVE REPORT TO BROOKE FOR CONTINUE DARE.
--- NOTE | 2021-06-08 19:30 | NUR ---
RECEIVED PATIENT ON BED; OBTUNDED; ON TRACH TO VENT AT 30% FIO2; S02 94%; CARDIACSCOPE SHOWS ON SINUS TACHY HR 109/MIN NO ARRHYTHMIAS SEEN. IVF IN PROGRESS 0.45% NORMAL SALINE 1 LITER WITH 3 AMPS. NA HCO3 AT 5 ML/HR VIA PICC LINE TO RIGHT UPPER ARM; INTACT.ABDOMEN SOFT AND WITH NEWLY INSERTED GTUBE; TUBE FEEDING STARTED TODAY AT 10 ML/HR TOLERATED WITH THE GOAL OF 30 ML/HR; RAMÍREZ CATH IN SITU TO GRAVITY DRAINAGE BAG DRAINING TO LIGHT SUBHA URINE OUTPUT.
--- NOTE | 2021-06-08 21:00 | NUR ---
TURNED AND REPOSITIONED PATIENT; ORAL CARE DONE WITH VAP KIT.
--- NOTE | 2021-06-08 21:30 | NUR ---
OPEN EYES TO PAIN, AND DOESN'T TRACKS.
[2021-06-09] VITALS (26 sets, daily range): BP systolic 107–150; BP diastolic 67–90
--- NOTE | 2021-06-09 | NUR ---
FEBRILE 100.7; COOLING MEASURES DONE; TYLENOL DOSE GIVE THRU G TUBE.
[2021-06-09] MEDS: ACETAMINOPHEN 325 MG TAB PO PRN (00:30)
[2021-06-09] MEDS: ALBUTEROL SULFATE/IPRATROPIU 3 ML SOL IH SCH ×4 (01:00→19:00)
--- NOTE | 2021-06-09 03:00 | NUR ---
MORNING BED BATH DONE; KEPT CLEAN DRY AND COMFORTABLE.
[2021-06-09] MEDS: PIPERACILLIN/TAZOBACTAM 3.375 GM in DEXTROSE 5% 50 ML IV SCH ×3 (05:08→21:18)
[2021-06-09 05:13] LABS: BASOPHILS % (AUTO) 0.1 % (0.0-2.0); EOSINOPHILS # (AUTO) 0.1 K/uL (0-0.4); EOSINOPHILS % (AUTO) 1.5 % (0.0-4.0); HEMATOCRIT 34.5 % (36-52); HEMOGLOBIN 11.7 g/dL (12.0-18.0); LYMPHOCYTES % (AUTO) 13.1 % (20.5-51.1); MEAN CORPUSCULAR HEMOGLOBIN 34 pg (27-31); MEAN CORPUSCULAR HGB CONC 34 g/dL (33-37); MEAN CORPUSCULAR VOLUME 100.8 fL (80-94); MONOCYTES # (AUTO) 0.5 K/uL (0.8-1.0); MONOCYTES % (AUTO) 6.4 % (1.7-9.3); NEUTROPHILS # (AUTO) 6.3 K/uL (1.8-7.7); NEUTROPHILS % (AUTO) 78.9 % (42.2-75.2); PLATELET COUNT (AUTO) 100 K/uL (140-450); RED BLOOD CELL COUNT(AUTO) 3.43 MIL/uL (4.20-6.10); RED CELL DISTRIBUTION WIDTH 14.6 % (11.6-13.7)
[2021-06-09 05:24] LABS: ANION GAP 20.9 (8-16); CARBON DIOXIDE 20.4 mmol/L (21-32); CREATININE 2.7 mg/dL (0.6-1.3); POTASSIUM 3.3 mmol/L (3.5-5.1)
--- NOTE | 2021-06-09 07:10 | NUR ---
Received pt,vented via tracheostomy, with 30% FIO2,saturating well ,not in distress PRVC rate of 24, ,with GT intact for continuous feeding,tolerated well, with right chest tube intact, dressing dry and intact Vital signs stable,not in distress With anderson catheter patent connected to drainage bag
[2021-06-09] MEDS ORDERED: VANCOMYCIN PER PHARMACY MC PRN (08:35)
[2021-06-09] MEDS: FAMOTIDINE 20 MG/2 ML VIAL IV SCH ×2 (08:54→21:18)
[2021-06-09] MEDS: POTASSIUM CHLORIDE 20% 40 MEQ/15 ML UDC GT PRN (08:55)
--- NOTE | 2021-06-09 09:45 | NUR ---
Avery here, seen pt,noted all parameters, continue plan of care
[2021-06-09] MEDS ORDERED: VANCOMYCIN HCL 1.25 GM in DEXTROSE 5% 250 ML IV SCH (10:00)
--- NOTE | 2021-06-09 12:23 | NUR ---
Elliott. DR. ESDRAS SOMMERS DAILY WEANING TOLERATED; NO ABG REQUIRED
--- NOTE | 2021-06-09 12:32 | NUR ---
Dr Kaplan here,seen pt,noted all parameters, for weaning as tolerated
[2021-06-09] MEDS: NON ADHERENT DRESSING TP SCH (13:10)
--- NOTE | 2021-06-09 14:30 | NUR ---
Weaning by RT well tolerated, saturating well,not in distress,vitalsigns stable, continue tomonitor.
--- NOTE | 2021-06-09 17:04 | NUR ---
Had large bowelmovement,pasty, greenish ,yellowish, afternoon care done all cares attended.
--- NOTE | 2021-06-09 18:37 | NUR ---
Condition still same on CPAPmode with FIO2 30%, tachycardic,tachypneic saturation good
--- NOTE | 2021-06-09 19:20 | NUR ---
RECEIVED PATIENT ON BED WITH HOB ELEVATED TO 30 DEGREE; ON TRACH TO VENT AT 30%FIO2; IVF IN PROGRESS 0.45% NACL + 3 AMPS NAHCO3 AT 5 ML/HR VIA PICC LINE TO RIGHT UPPER ARM. ABDOMEN SOFT, ACTIVE BOWEL SOUNDS; ON CONTINOUS TUBE FEEDING NEPRO AT 40 ML/HR VIA G TUBE.; TOLERATED. RAMÍREZ CATH IN PLACE TO GRAVITY DRAINAGE BAG DRAINING TO CLEAR YELLOW URINE OUTPUT. PATENT.
--- NOTE | 2021-06-09 20:30 | NUR ---
ORAL CARE DONE WITH VAP KIT. TURNED AND REPOSITIONED PATIENT.
[2021-06-10] VITALS (27 sets, daily range): BP systolic 110–149; BP diastolic 68–92
--- NOTE | 2021-06-10 00:15 | NUR ---
FEBRILE 100.7; COOLING MEASURES DONE; MEDICATED WITH TYLENOL GIVEN THRU G TUBE.
[2021-06-10] MEDS: ACETAMINOPHEN 650 MG/20.3 ML UDC NG PRN ×2 (00:30→19:06)
[2021-06-10] MEDS: ALBUTEROL SULFATE/IPRATROPIU 3 ML SOL IH SCH ×4 (01:00→19:00)
--- NOTE | 2021-06-10 03:00 | NUR ---
AFEBRILE; MORNING BED BATH DONE. KEPT CLEAN DRY AND COMFORTABLE. NEURO STATUS REMAINS THE SAME ABOVE.
[2021-06-10] MEDS: PIPERACILLIN/TAZOBACTAM 3.375 GM in DEXTROSE 5% 50 ML IV SCH ×3 (05:18→20:18)
[2021-06-10 06:52] LABS: BASOPHILS # (AUTO) 0.1 K/uL (0.00-0.22); BASOPHILS % (AUTO) 0.8 % (0.0-2.0); EOSINOPHILS # (AUTO) 0.4 K/uL (0-0.4); EOSINOPHILS % (AUTO) 3.9 % (0.0-4.0); HEMATOCRIT 25.2 % (36-52); HEMOGLOBIN 8.1 g/dL (12.0-18.0); LYMPHOCYTES # (AUTO) 1.2 K/uL (2.0-11.5); LYMPHOCYTES % (AUTO) 11.5 % (20.5-51.1); MEAN CORPUSCULAR HEMOGLOBIN 25 pg (27-31); MEAN CORPUSCULAR HGB CONC 32 g/dL (33-37); MEAN CORPUSCULAR VOLUME 78.8 fL (80-94); MONOCYTES # (AUTO) 1.2 K/uL (0.8-1.0); MONOCYTES % (AUTO) 10.8 % (1.7-9.3); NEUTROPHILS # (AUTO) 7.8 K/uL (1.8-7.7); PLATELET COUNT (AUTO) 217 K/uL (140-450); RED CELL DISTRIBUTION WIDTH 20.8 % (11.6-13.7); WHITE BLOOD COUNT (AUTO) 10.7 K/uL (4.8-10.8)
--- NOTE | 2021-06-10 07:10 | NUR ---
Received pt ,on CPAP mode via tracheostomy with 30 % FIO@,saturating well, not in distress ,although tachypneic but stable, With GT inatct for continuous feeding of Nepro at 40mls/hr,well tolerated, anderson catheter intact ,patent ,connected to drainage bag,yellow output.
[2021-06-10 07:17] LABS: ANION GAP 10.6 (8-16); CARBON DIOXIDE 27.5 mmol/L (21-32); CREATININE 1.3 mg/dL (0.6-1.3); POTASSIUM 3.1 mmol/L (3.5-5.1)
[2021-06-10] MEDS: NACL 0.45% IV SCH (07:30)
[2021-06-10] MEDS: POTASSIUM CHLORIDE IV SCH (07:30)
[2021-06-10] MEDS: POTASSIUM CHLORIDE 20% 40 MEQ/15 ML UDC GT PRN (08:10)
[2021-06-10] MEDS: FAMOTIDINE 20 MG/2 ML VIAL IV SCH ×2 (08:10→20:18)
--- NOTE | 2021-06-10 10:10 | NUR ---
Dr Colin here,seen pt,noted all parameters,continue plan of care.
--- NOTE | 2021-06-10 12:15 | NUR ---
Dr Kaplan here,seen pt,noted all parameters, to clamp the chest tube and tomorrow for chest tube removal,forchest xray also. to put back on fullsupport vent at night to rest him
--- NOTE | 2021-06-10 12:15 | NUR ---
Dr Kaplan also said to start discharge planning to LTAC after chest tube removal tomorro
--- NOTE | 2021-06-10 14:30 | NUR ---
As per biodiesel technology manager , pt needs Sub acute SNF if okwith the DRS. Dr Parisi informed of the CM suggestion and he said ok to transfer to SNF
[2021-06-10] MEDS: NON ADHERENT DRESSING TP SCH (15:42)
[2021-06-10] MEDS: POTASSIUM CHL 20 MEQ/ 1/2 NS 1,000 ML IV SCH (16:52)
[2021-06-10] MEDS: KCL 20 MEQ/WATER INJ PREMIX 100 ML IV SCH ×3 (16:53→20:00)
--- NOTE | 2021-06-10 16:54 | NUR ---
CXR done with chest tube clamped, Pt feels warm to touch,tempchecked- 100.2 per oral, cooling measures done,PRN meds given.
--- NOTE | 2021-06-10 16:56 | NUR ---
Had large bowel movement , yellowish, pasty, all caresattended, kept clean and dry
--- NOTE | 2021-06-10 17:59 | NUR ---
Temp re checked-98.9 per jazmine, All cares attended,
--- NOTE | 2021-06-10 18:44 | NUR ---
Pt was tachycardic, tachypneic RT changed the setting fr CPAP mode to AC mode rate of 22, peep of 5 tv 450 FIO2 30 %. GT feeding well tolerated, anderson intact VItal signs stable,
--- NOTE | 2021-06-10 19:43 | NUR ---
REPORT RECEIVED FROM VIDALPRCAMILA RN FOR CONTINUITY OF CARE. PATIENT IS CURRENTLY RESTING IN BED. TRACH TO VENT WITH SETTINGS AC FIO2 30%, TV 450 R 22 PEEP 5 WITH O2 SATURATION AT 97%. PICC LINE LOCATE IN RT UPPER ARM RUNNING K RIDER. RAMÍREZ CATHETER PRESENT AND PATENT. AND CHEST TUBE IS PRESENT. PATIENT RECEIVING TUBE FEEDING AT 40ML/HR. PATIENT DOES NOT APPEAR TO BE IN DISTRESS OR PAIN AT THIS TIME. WILL CONTINUE TO MONITOR.
--- NOTE | 2021-06-10 22:00 | NUR ---
PM CARE PROVIDED. PATIENT TOLERATED WELL.
[2021-06-11] VITALS (29 sets, daily range): BP systolic 122–148; BP diastolic 67–136
[2021-06-11] MEDS: ALBUTEROL SULFATE/IPRATROPIU 3 ML SOL IH SCH ×3 (01:38→19:38)
[2021-06-11 05:44] LABS: ANION GAP 8.7 (8-16); CARBON DIOXIDE 29.3 mmol/L (21-32); CREATININE 1.2 mg/dL (0.6-1.3)
[2021-06-11] MEDS: PIPERACILLIN/TAZOBACTAM 3.375 GM in DEXTROSE 5% 50 ML IV SCH ×3 (05:44→20:30)
--- NOTE | 2021-06-11 07:30 | NUR ---
REPORT RECEIVED FROM CASINO FLOOR SUPERVISOR FOR CONTINUITY OF CARE. PT IS RESTING IN BED IN NO SIGN OF DISTRESS. PT HAS A RIGHT UA CENTRAL LINE RUNNING AT 10ML/H. PT IS TRACH TO VENT SETTINGS ARE FIO2 30%, TV 450, RATE OF 18 AND PEEP OF 5. CHEST TUBE IN PLACE AND INTACT. G TUBE IN PLACE AND RUNNING NEPRO AT 40 ML/H, WITH WATER FLUSHES OF 100 ML Q6H. RAMÍREZ IN PLACE AND INTACT. BILATERAL LEG AND SACRAL WOUNDS. ALL SAFETY PRECAUTIONS ARE IN PLACE AND WILL CONTINUE TO MONITOR.
--- NOTE | 2021-06-11 07:55 | NUR ---
REPORT GIVEN TO BECKA REEVES FOR CONTINUITY OF CARE.
[2021-06-11] MEDS: FAMOTIDINE 20 MG/2 ML VIAL IV SCH ×2 (09:00→20:30)
[2021-06-11] MEDS ORDERED: DEXTROSE 50% 50 ML SYR IVP PRN (09:15)
[2021-06-11] MEDS ORDERED: INSULIN LISPRO SLIDING SCALE 100 UNITS/ML VIAL SUBQ PRN (09:15)
[2021-06-11] MEDS ORDERED: VANCOMYCIN HCL 1.25 GM in DEXTROSE 5% 250 ML IV SCH (12:00)
[2021-06-11] MEDS: BLOOD GLUCOSE MONITORING 1 DEV DEV FS SCH ×3 (12:04→20:30)
[2021-06-11] MEDS: NON ADHERENT DRESSING TP SCH (13:00)
--- NOTE | 2021-06-11 13:39 | NUR ---
PT RHONCHI BILATERALLY. SUCTIONED THIN WHITE PALE YELLOW SECRETIONS. IMPROVEMENT AFTER SUCTIONING. NO ADVERSE REACTIONS.
--- NOTE | 2021-06-11 13:59 | NUR ---
06/11/21 RD FOLLOW UP COMPLETED PLEASE REFER TO NUTRITION ASSESSMENT UNDER CARE ACTIVITY FOR ESTIMATED NUTRITIONAL NEEDS. 1. CONTINUE NEPRO @ 30 ML/HR TOLERATED -FWF: 100 ML Q6H PER MD -WITH D5W, PT IS RECEIVING >75% OF ESTIMATED NUTRITION NEEDS -IF PT NOT ON D5W, RECOMMEND INCREASING TF GOAL RATE TO 40 ML/HR TOLERATED 2. MONITOR NUTRITION-RELATED LAB VALUES 3. RD TO FOLLOW-UP 3-5 DAYS, MODERATE RISK (DOWNGRADED D/T PT TOLERATING TF WELL) LEESA ESPINOSA RD
[2021-06-11] MEDS: POTASSIUM CHL 20 MEQ/ 1/2 NS 1,000 ML IV SCH (15:40)
--- NOTE | 2021-06-11 16:50 | NUR ---
DR. SOMMERS AT BEDSIDE AND REMOVED CHEST TUBE. PER DR. SOMMERS ORDERS, X RAY WILL BE ORDERED AND IF NO PNEUMOTHORAX IS NOTED, PT COULD BE DISCHARGED.
--- NOTE | 2021-06-11 19:00 | NUR ---
RADIOLOGY AT BEDSIDE PER MD ORDERS. IF XRAY SHOWS NO ABNORMALITIES, THEN PT IS READY FOR DISCHARGED PER MD ORDERS. ALSO CASE MANAGEMENT NEEDS TO BE CALLED AFTER CHEST TUBE REMOVED.
--- NOTE | 2021-06-11 19:20 | NUR ---
ENDORSED CARE TO CARMENZA RN FOR CONTINUITY OF CARE.
--- NOTE | 2021-06-11 19:22 | NUR ---
REPORT RECEIVED FROM EBCKA REEVES, FOR CONTINUITY OF CARE.
--- NOTE | 2021-06-11 20:50 | NUR ---
BLOOD GLUCOSE 110. NO COVERAGE NEEDED.
--- NOTE | 2021-06-11 21:41 | NUR ---
[facility] FEEDING HUNG. RUNNING AT 40ML/HR. PATIENT TOLERATING WELL. WILL CONTINUE TO MONITOR.
[2021-06-12] VITALS (17 sets, daily range): BP systolic 121–144; BP diastolic 74–97
[2021-06-12] MEDS: ALBUTEROL SULFATE/IPRATROPIU 3 ML SOL IH SCH ×2 (01:23→07:18)
[2021-06-12] MEDS: PIPERACILLIN/TAZOBACTAM 3.375 GM in DEXTROSE 5% 50 ML IV SCH ×2 (05:23→13:07)
[2021-06-12 06:21] LABS: ANION GAP 9.4 (8-16); CARBON DIOXIDE 30.1 mmol/L (21-32); CREATININE 1.3 mg/dL (0.6-1.3); POTASSIUM 3.5 mmol/L (3.5-5.1)
--- NOTE | 2021-06-12 07:15 | NUR ---
RECEIVED REPORT FROM FENCE MAKER FOR CONTINUITY OF CARE. PT IS RESTING IN BED IN NO SIGN OF DISTRESS. PT HAS A RIGHT UA CENTRAL LINE RUNNING AT 10ML/H. PT IS TRACH TO VENT SETTINGS ARE FIO2 30%, TV 450, RATE OF 18 AND PEEP OF 5. G TUBE IN PLACE AND RUNNING NEPRO AT 40 ML/H, WITH WATER FLUSHES OF 100 ML Q6H. RAMÍREZ IN PLACE AND INTACT. BILATERAL LEG AND SACRAL WOUNDS. ALL SAFETY PRECAUTIONS ARE IN PLACE AND WILL CONTINUE TO MONITOR.
--- NOTE | 2021-06-12 07:21 | NUR ---
REPORT GIVEN TO BECKA REEVES, FOR CONTINUITY OF CARE.
[2021-06-12] MEDS: BLOOD GLUCOSE MONITORING 1 DEV DEV FS SCH ×2 (07:58→11:39)
[2021-06-12] MEDS: FAMOTIDINE 20 MG/2 ML VIAL IV SCH (09:12)
--- NOTE | 2021-06-12 10:30 | NUR ---
DR. OVERTON AT BEDSIDE AND ASSESSED PT.
[2021-06-12] MEDS ORDERED: SULF-58 PO (10:43)
[2021-06-12] MEDS ORDERED: IV Zosyn IV (10:46)
--- NOTE | 2021-06-12 12:45 | NUR ---
GAVE REPORT TO MELVIN REEVES FOR CONTINUITY OF CARE VIA PHONE. ACCORDING TO TRAINING PROJECT MANAGER, [facility] WILL BE ARRIVING TO ICU AT 1500 TO TAKE PT TO [facility].
[2021-06-12] MEDS: NON ADHERENT DRESSING TP SCH (13:08)
--- NOTE | 2021-06-12 15:00 | NUR ---
PT WAS TAKEN BY [facility] VIA SORAYA. DISCHARGE DOCUMENTS AND BELONGINGS WERE TAKEN WITH PT.
--- NOTE | 2021-06-12 15:05 | NUR ---
PT LEFT UNIT WITH [facility] STAFF, IN STABLE CONDITION, ALL BELONGINGS WITH PT.
--- NOTE | 2021-06-17 07:10 | NUR ---
Report received, pt on HFNC 30liters with 30 % FIO2, saturating well, not in distress,,vital signs stable, satuirating well. With GT inatct clamped,NPO except meds. With anderson cattheter intact ,patent draining yellow colred urine,.
--- NOTE | 2021-06-17 10:30 | NUR ---
Wound care Nurse Jeanette here, seen pt, noted ll parameters, wound care dressing done on all the pt wounds.
== END 2021-06-12 15:00 | DRG 5 ==
LOC: MED 06:44 → MTU 10:39 → MIC 05-13 18:03
PROVIDERS: ADMIT Family Medicine; ATTEND Family Medicine
PROC: 5A1955Z Respiratory Ventilation, Greater than 96 Consecutive Hours (ICD-10-PCS; principal; 2021-05-13)
PROC: 0BH17EZ Insertion of Endotracheal Airway into Trachea, Via Natural or Artificial Opening (ICD-10-PCS; 2021-05-13)
PROC: 0W9930Z Drainage of Right Pleural Cavity with Drainage Device, Percutaneous Approach (ICD-10-PCS; 2021-05-13)
PROC: 02HV33Z Insertion of Infusion Device into Superior Vena Cava, Percutaneous Approach (ICD-10-PCS; 2021-05-13)
PROC: B548ZZA Ultrasonography of Superior Vena Cava, Guidance (ICD-10-PCS; 2021-05-13)
PROC: 30233N1 Transfusion of Nonautologous Red Blood Cells into Peripheral Vein, Percutaneous Approach (ICD-10-PCS; 2021-05-30)
PROC: 0B110F4 Bypass Trachea to Cutaneous with Tracheostomy Device, Open Approach (ICD-10-PCS; 2021-06-07)
PROC: 0DH63UZ Insertion of Feeding Device into Stomach, Percutaneous Approach (ICD-10-PCS; 2021-06-07)
DX: A41.02 Sepsis due to Methicillin resistant Staphylococcus aureus (principal); I61.9 Nontraumatic intracerebral hemorrhage, unspecified; N17.0 Acute kidney failure with tubular necrosis; J69.0 Pneumonitis due to inhalation of food and vomit; I76 Septic arterial embolism; J96.21 Acute and chronic respiratory failure with hypoxia; G93.40 Encephalopathy, unspecified; E87.1 Hypo-osmolality and hyponatremia; D63.8 Anemia in other chronic diseases classified elsewhere; R65.21 Severe sepsis with septic shock; D68.59 Other primary thrombophilia; I38 Endocarditis, valve unspecified; I42.0 Dilated cardiomyopathy; E11.51 Type 2 diabetes mellitus with diabetic peripheral angiopathy without gangrene; E78.5 Hyperlipidemia, unspecified; J44.0 Chronic obstructive pulmonary disease with (acute) lower respiratory infection; J93.9 Pneumothorax, unspecified; M16.0 Bilateral primary osteoarthritis of hip; R13.10 Dysphagia, unspecified; Y95 Nosocomial condition; J44.1 Chronic obstructive pulmonary disease with (acute) exacerbation; I50.43 Acute on chronic combined systolic (congestive) and diastolic (congestive) heart failure; I27.20 Pulmonary hypertension, unspecified; F15.10 Other stimulant abuse, uncomplicated; K86.1 Other chronic pancreatitis; F17.210 Nicotine dependence, cigarettes, uncomplicated; N18.31 Chronic kidney disease, stage 3a; G93.1 Anoxic brain damage, not elsewhere classified; I21.A1 Myocardial infarction type 2; L03.116 Cellulitis of left lower limb; L03.115 Cellulitis of right lower limb; T43.621A Poisoning by amphetamines, accidental (unintentional), initial encounter; I13.0 Hypertensive heart and chronic kidney disease with heart failure and stage 1 through stage 4 chronic kidney disease, or unspecified chronic kidney disease; E11.22 Type 2 diabetes mellitus with diabetic chronic kidney disease; E87.0 Hyperosmolality and hypernatremia; E87.5 Hyperkalemia; Z20.822 Contact with and (suspected) exposure to COVID-19; Z79.82 Long term (current) use of aspirin; Z79.899 Other long term (current) drug therapy; Z86.19 Personal history of other infectious and parasitic diseases; Z80.0 Family history of malignant neoplasm of digestive organs; Z80.1 Family history of malignant neoplasm of trachea, bronchus and lung; Z82.49 Family history of ischemic heart disease and other diseases of the circulatory system; Z71.51 Drug abuse counseling and surveillance of drug abuser; Y92.89 Other specified places as the place of occurrence of the external cause
CPT/HCPCS: 36415; 36600; 70450; 71045; 71275; 72192; 80048; 80053; 80202; 80305; 82150; 82272; 82803; 82948; 83690; 83735; 83880; 84100; 84443; 84484; 85025; 85610; 85730; 86886; 86900; 86901; 86920; 87040; 87070; 87081; 87086; 87186; 87205; 93005; 94003; 94640; 96374; 99291; C1751; J0610; J1450; J1644; J1940; J2060; J2185; J2250; J2270; J2310; J2543; J3010; J3370; J3475; J3480; J3490; J7030; J7060; J7512; P9016; Q0092; Q9967; U0003

== ENCOUNTER 2022-05-21 20:51 | Inpatient (IN) | payer BC, MEDICAID ==
[~2022-05-21] VITALS: Ht 188 cm; Wt 98.4 kg
[2022-05-21 20:51] VITALS: BP 114/70
[~2022-05-21 20:51] MED LIST changes: -ALBU0.0912 IH; -ASPI81CT95 PO; +DOCU-299 PO; -FURO-570 PO; +IBUP-2213 PO; +IV Zosyn IV; -LISI10TA30 PO; +LORA-476 PO; -LORA10TA19 PO; -METO50TE2 PO; +METROPOLOL PO; +MULT-1328 PO; -PRED20TA5 PO; +PROP20TA29 PO; +QUET25TA PO; +ZINC100T8 PO; +[UNRECOGNIZED DRUG - CODE] PO; +[UNRECOGNIZED DRUG - CODE] PO
--- NOTE | 2022-05-21 21:10 | NUR ---
CODY MARTINEZ. TAKEN TO BED 1
--- NOTE | 2022-05-21 21:10 | NUR ---
PT CAME IN WITH AMBULANCE COMPLANING ABOUT THE PAIN IN BILATERAL HIP. HE IS BED BOUND. ROOM AIR.
[2022-05-21 21:13] VITALS: BP 114/78
--- NOTE | 2022-05-21 21:45 | NUR ---
X-Ray at bedside.
[2022-05-21] MEDS ORDERED: NACL 0.9% 1,000 ML IV ONE (22:25)
[2022-05-21] MEDS ORDERED: MORPHINE SULFATE 4 MG/ML SYR IVP ONE (22:25)
[2022-05-21 22:46] LABS: BASOPHILS % (AUTO) 0.2 % (0.0-2.0); EOSINOPHILS % (AUTO) 0.2 % (0.0-4.0); LYMPHOCYTES # (AUTO) 0.8 K/uL (2.0-11.5); LYMPHOCYTES % (AUTO) 8.2 % (20.5-51.1); MEAN CORPUSCULAR HEMOGLOBIN 28 pg (27-31); MEAN CORPUSCULAR HGB CONC 33 g/dL (33-37); MEAN CORPUSCULAR VOLUME 83.9 fL (80-94); MONOCYTES # (AUTO) 0.8 K/uL (0.8-1.0); MONOCYTES % (AUTO) 8.5 % (1.7-9.3); NEUTROPHILS # (AUTO) 8.1 K/uL (1.8-7.7); NEUTROPHILS % (AUTO) 82.9 % (42.2-75.2); PLATELET COUNT (AUTO) 142 K/uL (140-450); RED BLOOD CELL COUNT(AUTO) 5.36 MIL/uL (4.20-6.10); RED CELL DISTRIBUTION WIDTH 14.6 % (11.6-13.7); WHITE BLOOD COUNT (AUTO) 9.8 K/uL (4.8-10.8)
--- NOTE | 2022-05-21 23:00 | NUR ---
PT REFUSED TO DO CT SCAN REASON OF BECAUSE HE WAS TOO MUCH PAIN. NURSE TRY TO EXPLAIN HOW IMPORTANT THE CT SCAN
[2022-05-21 23:07] LABS: ALBUMIN 2.6 g/dL (3.4-5.0); ANION GAP 10.5 (8-16); CARBON DIOXIDE 29.5 mmol/L (21-32); CREATININE 0.7 mg/dL (0.6-1.3); TOTAL BILIRUBIN 0.6 mg/dL (0.0-1.0)
--- NOTE | 2022-05-22 01:00 | NUR ---
PT SAID HE DOES NOT BE BOTHERED, DOESNT NEED TO BE MOVED NOR TOUCH. HE HAS SIGNED THE AMA FORM THAT HE AGRESS TO BE SEND HOME WITH THE [facility] E CONDITION. PT ASKED SME WATER . NURSE PROVIDIED THE SERVICE
--- NOTE | 2022-05-22 01:12 | NUR ---
CALLED THE FACILITY TO GIVE AN UPDATE ABOUT THE PATIENT, SPOKE TO KATHIA REEVES. WILL GIVE THE UPDATE [facility] TRANSPORTATION
--- NOTE | 2022-05-22 02:00 | NUR ---
PT ASKING ABOUT THE DRINK. NURSE PROVIDED IT. PT TOLERATED WELL
--- NOTE | 2022-05-22 07:28 | NUR ---
Dr Torres spoke with pt at bedside; pt agreed to stay and resume care.
[2022-05-22] MEDS ORDERED: MORPHINE SULFATE 4 MG/ML SYR IVP ONE (07:30)
[2022-05-22] MEDS ORDERED: ONDANSETRON 4 MG ODT PO ONE (07:30)
[2022-05-22] MEDS ORDERED: ONDANSETRON 4 MG/2 ML VIAL IVP ONE (07:50)
--- NOTE | 2022-05-22 08:00 | NUR ---
PT TAKEN TO CT VIA RILANA.
[2022-05-22] MEDS ORDERED: ACETAMINOPHEN 325 MG TAB PO ONE (08:35)
--- NOTE | 2022-05-22 08:45 | NUR ---
LIZANDRO SWAB COLLECTED AND WALKED TO LAB.
[2022-05-22] MEDS ORDERED: ASCO500T95 PO (10:35)
[2022-05-22] MEDS ORDERED: NUTR887L PO (10:35)
[2022-05-22] MEDS ORDERED: POTASSIUM CHLORIDE 10 MEQ TABER PO PRN (12:25)
[2022-05-22] MEDS ORDERED: ONDANSETRON 4 MG/2 ML VIAL IVP PRN (12:25)
[2022-05-22] MEDS ORDERED: DOCUSATE SODIUM 100 MG GELCAP PO PRN (12:25)
[2022-05-22] MEDS ORDERED: LORazepam 2 MG/ML VIAL IVP PRN (12:25)
[2022-05-22] MEDS ORDERED: ZOLPIDEM 10 MG TAB PO PRN (12:25)
[2022-05-22] MEDS ORDERED: MAG SULF 2000 MG/WATER PREMIX 50 ML IV PRN (12:25)
--- NOTE | 2022-05-22 13:54 | NUR ---
PATIENT HAS BEEN SCREENED AND CATEGORIZED MODERATE NUTRITION RISK. PATIENT WILL BE SEEN WITHIN 3-5 DAYS OF ADMISSION. REVIEWED BY LEESA ESPINOSA RD
--- NOTE | 2022-05-22 14:32 | NUR ---
PT REPOSITIONED FOR COMFORT, ALL NEEDS MET AT THIS TIME.
--- NOTE | 2022-05-22 15:15 | NUR ---
Patient will be admitted to care of Dr. Jenkins. Admited to Med/Surg. Will go to room 105A. Belongings list completed. Report to LALA Solomon.
--- NOTE | 2022-05-22 15:25 | NUR ---
RECEIVED REPORT FROM ED NURSE COY FOR CONTINUITY OF CARE. PT IN STABLE CONDITION AND ENDORSED SEVERE BILATERAL HIP PAIN.
[2022-05-22] MEDS ORDERED: DEXTROSE 50% 50 ML SYR IVP PRN (15:45)
[2022-05-22] MEDS: MORPHINE SULFATE 2 MG/ML SYR IVP PRN ×2 (15:59→20:25)
[2022-05-22] MEDS: BLOOD GLUCOSE MONITORING 1 DEV DEV FS SCH ×2 (16:41→20:24)
--- NOTE | 2022-05-22 19:30 | NUR ---
RECEIVED BEDSIDE REPORT FROM DAY SHIFT RN FOR CONTINUITY OF CARE. PT IS AAOX4 ON RA. PT NOT IN ANY DISTRESS. PT HAS 22 GAUGE ON RIGHT WRIST AND 20 GAUGE ON LEFT AC SALINE LOCK. POC DISCUSSED. CALL LIGHT WITHIN REACH. WILL CONTINUE TO MONITOR THE PT.
[2022-05-22 20:00] VITALS: BP 137/75
[2022-05-22] MEDS: ASCORBIC ACID 500 MG TAB PO SCH (20:24)
[2022-05-22] MEDS: DOCUSATE SODIUM 100 MG GELCAP PO SCH (20:24)
[2022-05-22] MEDS: DEXAMETHASONE 4 MG/ML VIAL IVP SCH (20:35)
--- NOTE | 2022-05-22 20:39 | NUR ---
SCHEDULE MEDICATION GIVEN. ASLO PT COMPLAIN OF MODERATE HIP PAIN. MORPHINE WAS GIVEN. PER MD ORDER. NO OTHER COMPLAINS. NO ADVERSE REACTION NOTED. WILL CONTINUE TO MONITOR THE PT.
--- NOTE | 2022-05-23 | NUR ---
OBSERVED PT. PT IS RESTING IN BED. PT NOT IN ANY DISTRESS. PT HAS NO COMPLAINS RIGHT NOW. WILL CONTINUE TO MONITOR THE PT.
--- NOTE | 2022-05-23 02:46 | NUR ---
OBSERVED PT. PT IS SLEEPING COMFORTABLY IN BED. PT NOT IN ANY ACUTE DISTRESS. CALL LIGHT WITHIN REACH. WILL CONTINUE TO MONITOR THE PT.
[2022-05-23 04:00] VITALS: BP 105/74
[2022-05-23 05:32] LABS: APPEARANCE,URINE CLEAR (CLEAR); BILIRUBIN,URINE 1+ (NEGATIVE); BLOOD, URINE 3+ (NEGATIVE); COLOR,URINE YELLOW (YELLOW); LEUKOCYTE ESTERASE ,URINE NEGATIVE (NEGATIVE); NITRITE, URINE NEGATIVE (NEGATIVE); UGLUCOSE NEGATIVE (NEGATIVE)
[2022-05-23 05:55] LABS: RBC,URINE 11-20 (MOD) /HPF (0-5)
[2022-05-23 05:56] LABS: WBC,URINE 0-5 /HPF (0-5)
--- NOTE | 2022-05-23 06:00 | NUR ---
OBSERVED PT. PT IS SLEEPING COMFORTABLY IN BED. PT NOT IN ANY ACUTE DISTRESS. CALL LIGHT WITHIN REACH. WILL CONTINUE TO MONITOR THE PT.
[2022-05-23] MEDS: INSULIN LISPRO SLIDING SCALE 100 UNITS/ML VIAL SUBQ PRN ×4 (06:32→21:00)
[2022-05-23] MEDS: BLOOD GLUCOSE MONITORING 1 DEV DEV FS SCH ×4 (06:33→21:00)
[2022-05-23 06:42] LABS: BASOPHILS % (AUTO) 0.3 % (0.0-2.0); EOSINOPHILS % (AUTO) 0.1 % (0.0-4.0); HEMATOCRIT 41.3 % (36-52); HEMOGLOBIN 13.8 g/dL (12.0-18.0); LYMPHOCYTES # (AUTO) 0.6 K/uL (2.0-11.5); LYMPHOCYTES % (AUTO) 4.8 % (20.5-51.1); MEAN CORPUSCULAR HEMOGLOBIN 28 pg (27-31); MEAN CORPUSCULAR HGB CONC 33 g/dL (33-37); MEAN CORPUSCULAR VOLUME 82.9 fL (80-94); MONOCYTES # (AUTO) 0.6 K/uL (0.8-1.0); MONOCYTES % (AUTO) 4.5 % (1.7-9.3); NEUTROPHILS % (AUTO) 90.3 % (42.2-75.2); PLATELET COUNT (AUTO) 138 K/uL (140-450); RED BLOOD CELL COUNT(AUTO) 4.97 MIL/uL (4.20-6.10); RED CELL DISTRIBUTION WIDTH 14.4 % (11.6-13.7); WHITE BLOOD COUNT (AUTO) 13.2 K/uL (4.8-10.8)
[2022-05-23 06:46] LABS: ANION GAP 12.2 (8-16); CARBON DIOXIDE 28.1 mmol/L (21-32); CREATININE 0.8 mg/dL (0.6-1.3); POTASSIUM 4.3 mmol/L (3.5-5.1)
--- NOTE | 2022-05-23 07:09 | NUR ---
GOT REPORT FROM THE NIGHT NURSE, PT SLEEPING NO SOB.[id number]
--- NOTE | 2022-05-23 07:13 | NUR ---
ENDORSED PT TO DAY SHIFT RN FOR CONTINUITY OF CARE. PT IS STABLE.
[2022-05-23 08:00] VITALS: BP 101/62
[2022-05-23] MEDS: DEXAMETHASONE 4 MG/ML VIAL IVP SCH (09:31)
[2022-05-23] MEDS: DOCUSATE SODIUM 100 MG GELCAP PO SCH ×2 (09:33→20:57)
[2022-05-23] MEDS: ASCORBIC ACID 500 MG TAB PO SCH ×2 (09:33→20:57)
[2022-05-23 12:00] VITALS: BP 100/57
--- NOTE | 2022-05-23 15:22 | NUR ---
PT. WITH LOW FLORENTIN SCALE AT MODERATE TO HIGH RISK, CONTINUE TO FOLLOW PRESSURE INJURY PREVENTION INTERVENTIONS. LLE SKIN TEAR WOUND BED PINK ,MOIST AND CLEAN, VERSATEL DRESSING APPLIED CHANGE PRN IF SOILING -POSITIONING: TURN AND REPOSITION PATIENT Q 2H OR SOONER USE PILLOWS TO KEEP BONY PROMINENCES FROM DIRECT CONTACT WITH SURFACES USE REPOSITIONING WEDGES TO PROVIDE 30-DEGREE ANGLE FOR SIDE LYING POSITIONS OFFLOADING OR FOAM DRESSING TO ALL TUBING TO PREVENT MEDICAL DEVICES RELATED PRESSURE INJURY -RE-EVALUATING AND MANAGING INCONTINENCE MONITOR SKIN CONDITION DURING POSITION CHANGE DO NOT MASSAGE REDNESS, BONY PROMINENCES FREQUENT BETO-CARE AND PROVIDE BARRIER CREAMS PRN IF SOILING MOISTURE CONTROL BY OFFER BED AMBRIZ/URINAL /ABSORBENT PAD TO WICK AND HOLD MOISTURE KEEP SKIN DRY AND PROTECT FROM FRICTION -MANAGE FRICTION/SHEAR/MOBILITY KEEP HOB AT THE LOWEST LEVEL OF ELEVATION NO MORE THAN 30 DEGREE UNLESS OTHERWISE CONTRAINDICATED USE LIFT SHEET OR TRANSFER DEVICE TO MOVE PATIENT AND PREVENT LATERAL SHEER. PROTECT HEELS, ELBOWS BONY PROMINENCES WITH SKIN BERRIES OR FOAM DRESSING IF EXPOSED TO FRICTION OFFLOAD BILATERAL HEELS BY PLACING PILLOWS UNDER CALVES AT ALL TIMES, UNLESS OTHERWISE CONTRAINDICATED -PRESSURE REDISTRIBUTION SURFACE THERAPY JUAN ISOFLEX MATTRESS -NUTRITION: PLEASE FOLLOW RD RECOMMENDATIONS AND OFFER NUTRITION SUPPLEMENTS IF ORDERED. PLEASE CONTACT WOUND CARE NURSE FOR ANY QUESTION AND CHANGE OF WOUND CONDITION.
[2022-05-23 16:00] VITALS: BP 94/61
--- NOTE | 2022-05-23 16:05 | NUR ---
DC PLANNING PT BEING SEEN BY NURSES, THEREFORE, SW OUTREACHED TO [facility] TO GATHER COLLATERAL INFORMATION.SPOKE WITH PAMELA WHO REPORTS PT IS IN LONG TERM CARE WITH FACILITY, ADMISSION DATE JUN 18. PER PAMELA, PT DOES NOT HAVE DECISION MAKING CAPACITY AND PTS SISTER, JESSICA GUERRA, IS PTS RESPONSIBLE CONSTITUTION PARTY/MDM. PT IS REPORTED TO BE PRIMARILY BED BOUND AND UTILIZES WC TOLERATED. PT IS TOTAL CARE AT [facility] AND CARE IS PROVIDED BY [facility] STAFF. PT IS REPORTED TO BE COMPLIANT WITH CARE AND DOES NOT DISPLAY ANY DISRUPTIVE BX'S. PT IS REPORTED TO BE VERBAL. PT IS NOT REGIONAL CENTER CONNECTED. PT HAS HX OF DIABETES THAT IS WELL MANAGED BY FACILITY. PAMELA REPORTS DC PLAN IS FOR PT TO RETURN TO [facility], ONCE MEDICALLY STABLE. Addendum: 05/23/22 at 1606 by Faustino Angulo SS Amended: Links added.
--- NOTE | 2022-05-23 19:30 | NUR ---
RECEIVED BEDSIDE REPORT FROM DAY SHIFT RN SAAD FOR CONTINUITY OF CARE. PT IS AAOX4 ON RA. PT NOT IN ANY DISTRESS. PT HAS 22 GAUGE ON RIGHT WRIST AND 20 GAUGE ON LEFT AC SALINE LOCK. POC DISCUSSED. CALL LIGHT WITHIN REACH. WILL CONTINUE TO MONITOR THE PT.
[2022-05-23 20:00] VITALS: BP 97/59
--- NOTE | 2022-05-23 21:00 | NUR ---
SCHEDULE MEDICATIONS GIVEN. NO ADVERSE REACTION NOTED. WILL CONTINUE TO MONITOR THE PT.
--- NOTE | 2022-05-24 00:35 | NUR ---
PT WAS CLEANED AND CHANGED. PT EXPERIENCE PAIN ON HIPS. PT FELT BETTER AFTER LAYING ON HIS BACK. PT ONLY ASKED FOR SOME SNACKS AND WAS PROVIDED. NO OTHER COMPLAINS. WILL CONTINUE TO MONITOR THE PT.
[2022-05-24] MEDS: MORPHINE SULFATE 2 MG/ML SYR IVP PRN ×3 (02:18→12:38)
[2022-05-24 04:00] VITALS: BP 103/66
--- NOTE | 2022-05-24 04:21 | NUR ---
PT IS AWAKE. PT NOT IN ANY DISTRESS. PT JUST ASKING FOR SOMETHING FOR DRINK AND PROVIDED. NO OTHER COMPLAINS. CALL LIGHT WITHIN REACH. WILL CONTINUE TO MONITOR THE PT.
[2022-05-24 06:26] LABS: BASOPHILS % (AUTO) 0.1 % (0.0-2.0); HEMATOCRIT 41.6 % (36-52); HEMOGLOBIN 13.8 g/dL (12.0-18.0); LYMPHOCYTES # (AUTO) 0.7 K/uL (2.0-11.5); LYMPHOCYTES % (AUTO) 5.3 % (20.5-51.1); MEAN CORPUSCULAR HEMOGLOBIN 28 pg (27-31); MEAN CORPUSCULAR HGB CONC 33 g/dL (33-37); MONOCYTES # (AUTO) 0.4 K/uL (0.8-1.0); MONOCYTES % (AUTO) 3.2 % (1.7-9.3); NEUTROPHILS # (AUTO) 11.8 K/uL (1.8-7.7); PLATELET COUNT (AUTO) 149 K/uL (140-450); RED BLOOD CELL COUNT(AUTO) 5.02 MIL/uL (4.20-6.10); RED CELL DISTRIBUTION WIDTH 14.4 % (11.6-13.7); WHITE BLOOD COUNT (AUTO) 12.9 K/uL (4.8-10.8)
[2022-05-24] MEDS: INSULIN LISPRO SLIDING SCALE 100 UNITS/ML VIAL SUBQ PRN ×4 (06:33→20:17)
[2022-05-24] MEDS: BLOOD GLUCOSE MONITORING 1 DEV DEV FS SCH ×4 (06:38→20:17)
[2022-05-24 06:48] LABS: ANION GAP 10.5 (8-16); CARBON DIOXIDE 27.8 mmol/L (21-32); CREATININE 0.8 mg/dL (0.6-1.3); POTASSIUM 4.3 mmol/L (3.5-5.1)
--- NOTE | 2022-05-24 07:15 | NUR ---
ASSUMED CONTINUITY OF CARE. INITIAL ASSESSMENT DONE. KEEP COMFORTABLE ON BED. FALL PRECAUTION APPLIED. CALL LIGHT WITHIN REACH.
[2022-05-24 07:17] LABS: NEUTROPHILS % (AUTO) 91.4 % (42.2-75.2)
--- NOTE | 2022-05-24 07:21 | NUR ---
SCHEDULE MEDICATIONS GIVEN. NO ADVERSE REACTION NOTED. WILL CONTINUE TO MONITOR THE PT.
[2022-05-24 08:30] VITALS: BP 123/77
--- NOTE | 2022-05-24 08:50 | NUR ---
PAGED DR. OVERTON AND INFORMED OF PT. HIGH HEART RATE 0F 150.
[2022-05-24] MEDS: DEXAMETHASONE 4 MG/ML VIAL IVP SCH (09:07)
--- NOTE | 2022-05-24 09:07 | NUR ---
pt was given ivp decadron, pt is awake, alert and oriented, temperature was checked and is 100.3.
[2022-05-24] MEDS: ACETAMINOPHEN 325 MG TAB PO PRN (09:15)
[2022-05-24] MEDS: ASCORBIC ACID 500 MG TAB PO SCH ×2 (09:15→20:18)
[2022-05-24] MEDS: DOCUSATE SODIUM 100 MG GELCAP PO SCH ×2 (09:15→20:18)
--- NOTE | 2022-05-24 09:15 | NUR ---
TEMP 100.3 TEMPORAL, NO ACUTE DISTRESS NOTED. APPLIED COOLING MEASURE. MEDICATED PER MD ORDER FOR FEVER.
--- NOTE | 2022-05-24 10:30 | NUR ---
RE-CHECKED TEMP 99.6 AT THIS TIME. CONTINUE TO APPLY COLD TOWEL ON FOREHEAD. WILL MONITOR.
[2022-05-24 12:00] VITALS: BP 100/64
--- NOTE | 2022-05-24 12:17 | NUR ---
ENDORSED TO PAULINO GILLIS FOR CONTINUITY OF CARE. IN STABLE CONDITION.
--- NOTE | 2022-05-24 13:00 | NUR ---
ASSUMED CARE FOR PT NOW FROM LALA ORTIZ
--- NOTE | 2022-05-24 13:15 | NUR ---
PT WAS FED AND ASSISTED WITH HIS LUNCH.
[2022-05-24 16:00] VITALS: BP 99/64
--- NOTE | 2022-05-24 19:25 | NUR ---
ENDORSED PT TO NIGHT RN FOR CONTINUITY OF CARE, PT IS STABLE AT THIS TIME.
--- NOTE | 2022-05-24 19:30 | NUR ---
RECEIVED BEDSIDE REPORT FROM DAY SHIFT RN FOR CONTINUITY OF CARE. PT IS AAOX4 ON RA. PT NOT IN ANY DISTRESS. PT HAS 20 GAUGE ON LEFT AC SALINE LOCK. POC DISCUSSED. CALL LIGHT WITHIN REACH. WILL CONTINUE TO MONITOR THE PT.
[2022-05-24 20:00] VITALS: BP 101/63
--- NOTE | 2022-05-24 20:20 | NUR ---
SCHEDULE MEDICATIONS GIVEN. NO ADVERSE REACTION NOTED. WILL CONTINUE TO MONITOR THE PT.
[2022-05-25] VITALS: BP 111/72
--- NOTE | 2022-05-25 01:16 | NUR ---
OBSERVED PT. PT IS SLEEPING COMFORTABLY IN BED. PT NOT IN ANY DISTRESS. BED AT THE LOWEST POSITION. HEAD OF THE BED RAISED. WILL CONTINUE TO MONITOR THE PT.
[2022-05-25] MEDS: MORPHINE SULFATE 2 MG/ML SYR IVP PRN (01:54)
--- NOTE | 2022-05-25 03:00 | NUR ---
PT WAS CLEANED AND CHANGED. PT HAD LARGE BM.
[2022-05-25 04:00] VITALS: BP 115/74
--- NOTE | 2022-05-25 05:48 | NUR ---
PT CALLED AND ASKED FOR EXTRA BLANKETS. NO OTHER COMPLAINS. WILL CONTINUE TO MONITOR THE PT.
[2022-05-25] MEDS: HYDROcodone/APAP 10/325 MG 1 TAB TAB PO PRN ×2 (06:26→12:18)
[2022-05-25] MEDS: BLOOD GLUCOSE MONITORING 1 DEV DEV FS SCH ×4 (06:30→20:45)
[2022-05-25 06:35] LABS: BASOPHILS % (AUTO) 0.1 % (0.0-2.0); EOSINOPHILS # (AUTO) 0.1 K/uL (0-0.4); EOSINOPHILS % (AUTO) 0.5 % (0.0-4.0); HEMATOCRIT 42.5 % (36-52); HEMOGLOBIN 13.9 g/dL (12.0-18.0); LYMPHOCYTES # (AUTO) 1.3 K/uL (2.0-11.5); MEAN CORPUSCULAR HEMOGLOBIN 27 pg (27-31); MEAN CORPUSCULAR HGB CONC 33 g/dL (33-37); MEAN CORPUSCULAR VOLUME 83.5 fL (80-94); MONOCYTES % (AUTO) 6.7 % (1.7-9.3); PLATELET COUNT (AUTO) 147 K/uL (140-450); RED BLOOD CELL COUNT(AUTO) 5.09 MIL/uL (4.20-6.10); RED CELL DISTRIBUTION WIDTH 14.5 % (11.6-13.7); WHITE BLOOD COUNT (AUTO) 14.3 K/uL (4.8-10.8)
--- NOTE | 2022-05-25 07:16 | NUR ---
ENDORSED PT TO DAY SHIFT LALA NASH FOR CONTINUITY OF CARE. PT IS STABLE.
--- NOTE | 2022-05-25 07:20 | NUR ---
got report from the night nurse, pt fast asleep no sob.[email or web address]
[2022-05-25 07:41] LABS: ANION GAP 9.8 (8-16); CARBON DIOXIDE 30.6 mmol/L (21-32); CREATININE 0.7 mg/dL (0.6-1.3); POTASSIUM 4.4 mmol/L (3.5-5.1)
[2022-05-25 08:00] VITALS: BP 113/61
[2022-05-25 08:26] LABS: NEUTROPHILS % (AUTO) 83.8 % (42.2-75.2)
[2022-05-25 08:27] LABS: LYMPHOCYTES % (AUTO) 8.9 % (20.5-51.1)
[2022-05-25] MEDS: DEXAMETHASONE 4 MG/ML VIAL IVP SCH (08:43)
[2022-05-25] MEDS: ASCORBIC ACID 500 MG TAB PO SCH ×2 (08:43→20:47)
[2022-05-25] MEDS: DOCUSATE SODIUM 100 MG GELCAP PO SCH ×2 (08:43→20:45)
[2022-05-25] MEDS ORDERED: PIPERACILLIN/TAZOBACTAM 3.375 GM in DEXTROSE 5% 50 ML IV SCH (09:15)
[2022-05-25] MEDS: INSULIN LISPRO SLIDING SCALE 100 UNITS/ML VIAL SUBQ PRN ×3 (11:53→20:46)
[2022-05-25 12:00] VITALS: BP 102/67
[2022-05-25] MEDS: MUPIROCIN CA NASAL 2% 1GM TUBE NS SCH (12:15)
[2022-05-25 16:00] VITALS: BP 112/76
[2022-05-25] MEDS ORDERED: VANCOMYCIN PER PHARMACY MC PRN (16:35)
[2022-05-25] MEDS ORDERED: VANCOMYCIN 1,000 MG VIAL ONE (17:45)
[2022-05-25] MEDS: VANCOMYCIN 1GM/DEXT 5% PREMIX 200 ML IV SCH (17:52)
[2022-05-25 20:00] VITALS: BP 107/74
[2022-05-26] VITALS: BP 115/74
[2022-05-26] MEDS ORDERED: VANCOMYCIN 1,000 MG VIAL ONE (02:07)
[2022-05-26] MEDS: VANCOMYCIN 1GM/DEXT 5% PREMIX 200 ML IV SCH (02:26)
[2022-05-26] MEDS: HYDROcodone/APAP 10/325 MG 1 TAB TAB PO PRN ×3 (02:26→17:49)
[2022-05-26 04:00] VITALS: BP 96/68
[2022-05-26 06:12] LABS: BASOPHILS # (AUTO) 0.1 K/uL (0.00-0.22); BASOPHILS % (AUTO) 0.4 % (0.0-2.0); EOSINOPHILS # (AUTO) 0.1 K/uL (0-0.4); EOSINOPHILS % (AUTO) 0.5 % (0.0-4.0); HEMATOCRIT 39.1 % (36-52); HEMOGLOBIN 12.8 g/dL (12.0-18.0); LYMPHOCYTES # (AUTO) 1.8 K/uL (2.0-11.5); LYMPHOCYTES % (AUTO) 11.6 % (20.5-51.1); MEAN CORPUSCULAR HEMOGLOBIN 27 pg (27-31); MEAN CORPUSCULAR HGB CONC 33 g/dL (33-37); MEAN CORPUSCULAR VOLUME 82.8 fL (80-94); MONOCYTES # (AUTO) 1.1 K/uL (0.8-1.0); MONOCYTES % (AUTO) 7.5 % (1.7-9.3); NEUTROPHILS # (AUTO) 12.2 K/uL (1.8-7.7); PLATELET COUNT (AUTO) 165 K/uL (140-450); RED BLOOD CELL COUNT(AUTO) 4.72 MIL/uL (4.20-6.10); RED CELL DISTRIBUTION WIDTH 14.5 % (11.6-13.7); WHITE BLOOD COUNT (AUTO) 15.2 K/uL (4.8-10.8)
[2022-05-26 06:33] LABS: CREATININE 0.6 mg/dL (0.6-1.3)
[2022-05-26] MEDS: BLOOD GLUCOSE MONITORING 1 DEV DEV FS SCH ×4 (06:34→21:00)
--- NOTE | 2022-05-26 07:17 | NUR ---
GOT REPORT FROM THE NIGHT NURSE, PT IS SLEEPING NO SOB.[id number]
[2022-05-26 08:00] VITALS: BP 117/75
[2022-05-26] MEDS: DEXAMETHASONE 4 MG/ML VIAL IVP SCH (08:44)
[2022-05-26] MEDS: DOCUSATE SODIUM 100 MG GELCAP PO SCH ×2 (08:45→21:46)
[2022-05-26] MEDS: ASCORBIC ACID 500 MG TAB PO SCH ×2 (08:45→21:47)
[2022-05-26] MEDS: VANCOMYCIN HCL 1.25 GM in DEXTROSE 5% 250 ML IV SCH ×2 (10:13→16:43)
[2022-05-26] MEDS: INSULIN LISPRO SLIDING SCALE 100 UNITS/ML VIAL SUBQ PRN ×2 (11:41→17:50)
[2022-05-26] MEDS: MUPIROCIN CA NASAL 2% 1GM TUBE NS SCH (11:43)
[2022-05-26 12:00] VITALS: BP 112/65
--- NOTE | 2022-05-26 15:42 | NUR ---
05/26/22 RD INITIAL ASSESSMENT COMPLETED PLEASE REFER TO NUTRITION ASSESSMENT UNDER CARE ACTIVITY FOR ESTIMATED NUTRITIONAL NEEDS. 1. RECOMMEND CCHO 60 GM, CARDIAC DIET TOLERATED 2. RD PROVIDED NUTRITION EDUCATION HANDOUTS ON CARB COUNTING FOR DM AND A HEART HEALTHY DIET 3. RD TO FOLLOW-UP 7 DAYS, LOW RISK REVIEWED BY LEESA ESPINOSA RD
[2022-05-26 17:36] VITALS: BP 105/65
--- NOTE | 2022-05-26 18:17 | NUR ---
PT REFUSED TO BE CLEANED AND TURNED SAYING HE HEARTS, PAIN MED IS GIVEN BUT PATIENT DO NOT WANT TO BE MOVED. DURING THE DRESSING CHANGE ON THE LEG, PT WAS SO UNCOMFORTABLE.[id number]
[2022-05-26 20:00] VITALS: BP 100/64
[2022-05-27] VITALS: BP 108/71
--- NOTE | 2022-05-27 01:36 | NUR ---
RECEIVED REPORT FROM LAB VANCVilma TROUGH RESULT = 22.3, CALLED PHARMACY. PHARMACY ORDER TO HOLD 0200 DOSE.
[2022-05-27] MEDS: HYDROcodone/APAP 10/325 MG 1 TAB TAB PO PRN ×3 (02:42→21:02)
[2022-05-27 04:00] VITALS: BP 109/67
[2022-05-27] MEDS ORDERED: VANCOMYCIN 1GM/DEXT 5% PREMIX 200 ML IV SCH (05:00)
--- NOTE | 2022-05-27 05:00 | NUR ---
VANCOMYCIN IS NOT ADMINISTERED, PHARMACY ORDERED TO HOLD IT, WAITING FOR PHARMACY TO DOSE. VANCO THROUGH RESULT THIS MORNING IS 22.3.
[2022-05-27] MEDS: BLOOD GLUCOSE MONITORING 1 DEV DEV FS SCH ×4 (06:36→21:01)
--- NOTE | 2022-05-27 06:36 | NUR ---
PT IS STABLE BLOOD SUGAR CHECKED = 93, NO SLIDING SCALE COVERAGE. NO INSULIN NEEDED.
[2022-05-27 07:23] LABS: BASOPHILS % (AUTO) 0.3 % (0.0-2.0); EOSINOPHILS # (AUTO) 0.1 K/uL (0-0.4); EOSINOPHILS % (AUTO) 0.6 % (0.0-4.0); HEMATOCRIT 38.8 % (36-52); HEMOGLOBIN 13.1 g/dL (12.0-18.0); LYMPHOCYTES # (AUTO) 2.4 K/uL (2.0-11.5); LYMPHOCYTES % (AUTO) 17.1 % (20.5-51.1); MEAN CORPUSCULAR HEMOGLOBIN 28 pg (27-31); MEAN CORPUSCULAR HGB CONC 34 g/dL (33-37); MEAN CORPUSCULAR VOLUME 82.2 fL (80-94); MONOCYTES % (AUTO) 6.9 % (1.7-9.3); NEUTROPHILS # (AUTO) 10.5 K/uL (1.8-7.7); NEUTROPHILS % (AUTO) 75.1 % (42.2-75.2); PLATELET COUNT (AUTO) 168 K/uL (140-450); RED BLOOD CELL COUNT(AUTO) 4.72 MIL/uL (4.20-6.10); RED CELL DISTRIBUTION WIDTH 14.5 % (11.6-13.7); WHITE BLOOD COUNT (AUTO) 13.9 K/uL (4.8-10.8)
--- NOTE | 2022-05-27 07:33 | NUR ---
GOT REPORT FROM NIGHT NURSE, PT SLEEPING , AND SNORING NO SOB .[id number]
[2022-05-27 07:34] LABS: ANION GAP 7.3 (8-16); CARBON DIOXIDE 31.7 mmol/L (21-32); CREATININE 0.5 mg/dL (0.6-1.3)
[2022-05-27 08:00] VITALS: BP 135/82
[2022-05-27] MEDS: ASCORBIC ACID 500 MG TAB PO SCH ×2 (08:22→20:37)
[2022-05-27] MEDS: DOCUSATE SODIUM 100 MG GELCAP PO SCH ×2 (08:22→20:37)
[2022-05-27] MEDS: DEXAMETHASONE 4 MG/ML VIAL IVP SCH (08:23)
[2022-05-27] MEDS: VANCOMYCIN 1,500 MG in DEXTROSE 5% 500 ML IV SCH ×2 (11:42→23:50)
[2022-05-27] MEDS: MUPIROCIN CA NASAL 2% 1GM TUBE NS SCH (11:42)
[2022-05-27] MEDS: INSULIN LISPRO SLIDING SCALE 100 UNITS/ML VIAL SUBQ PRN ×4 (11:44→21:36)
[2022-05-27 12:00] VITALS: BP 110/65
[2022-05-27 16:00] VITALS: BP 106/71
--- NOTE | 2022-05-27 17:30 | NUR ---
PT REFUSED ALL DAY BATH AND CHANGING OF BEDDING WELL PORTIONING, JUST SMALL PILLOW IN THE SIDE EVEN THAT HE ASKED TO TAKE IT OUT. WHEN CHANGING THE DRESSING PT WAS YELLING SAYING IT IS SO PAINFUL TO LIFT THE LEG HIGHER TO DO THE DRESSING UNDER BY THE CALF IF THE FOOT.
--- NOTE | 2022-05-27 19:20 | NUR ---
JL. REPORT FROM LALA NASH. PATIENT RESTING IN BED, SLEEPING COMFORTABLY BUT EASILY AROUSABLE. A/OX4. RESPIRATION EVEN AND UNLABORED. NS AT TKO INFUSING, LEFT AC G22. WITH CONDO CATH CONNECTED TO F/C BAG, DRAINING CLEAR YELLOW URINE. ON BILATERAL HEEL PROTECTORS. PATIENT IS BEDBOUND AND FEEDER. DENIES PAIN 0/10.
[2022-05-27 20:00] VITALS: BP 110/71
--- NOTE | 2022-05-27 21:05 | NUR ---
REFUSED TO TAKE MEDICATIONS BUT WHEN EXPLAINED ITS IMPORTANCE, AGREED TO TAKE IT.SCHEDULED MEDICATIONS ADMINISTERED. REFUSED FOR HOB TO BE ELEVATED WHEN TAKING MEDICATION.
--- NOTE | 2022-05-27 22:30 | NUR ---
OFF , REFUSED TO PUT ON BUT WHEN EXPLAINED THE IMPORTANCE , AGREED TO PUT IT BACK.
[2022-05-28] VITALS: BP 119/79
--- NOTE | 2022-05-28 00:30 | NUR ---
AWAKE IN BED, REQUESTED FOR SNACK OF BISCUITS AND WATER.
--- NOTE | 2022-05-28 02:00 | NUR ---
WARM BLANKETS GIVEN REQUESTED. STILL REFUSING REPOSITIONING IN BED.
[2022-05-28] MEDS: HYDROcodone/APAP 10/325 MG 1 TAB TAB PO PRN ×4 (03:03→21:50)
[2022-05-28 04:00] VITALS: BP 116/68
--- NOTE | 2022-05-28 04:00 | NUR ---
SLEEPING COMFORTABLY IN BED.
--- NOTE | 2022-05-28 06:00 | NUR ---
CHECKED PATIENT, STILL SLEEPING COMFORTABLY IN BED.
[2022-05-28] MEDS: BLOOD GLUCOSE MONITORING 1 DEV DEV FS SCH ×4 (06:58→21:26)
[2022-05-28 07:15] LABS: ANION GAP 8.3 (8-16); CARBON DIOXIDE 29.7 mmol/L (21-32); CREATININE 0.6 mg/dL (0.6-1.3)
--- NOTE | 2022-05-28 07:15 | NUR ---
CONDITION REMAIN STABLE. ENDORSED TO AM NURSE FOR FOLLOW UP OF PAIN MEDICATION NORCO TIME OF ADMINISTERING, PATIENT IS REFUSING MORPHINE.
--- NOTE | 2022-05-28 07:16 | NUR ---
RECEIVED PT FROM CHIMNEY SWEEPER NURSE FOR CONTINUITY OF CARE. PT ON 2L O2 VIA N/C SATURATING AT 93%. PT REFUSED MORNING ASSESSMENT, REFUSED BEING TOUCHED OR MOVED. C/O PAIN. INFORMED DR ROCHA OF PT REQUESTING [place].
[2022-05-28 08:00] VITALS: BP 126/78
[2022-05-28] MEDS: DOCUSATE SODIUM 100 MG GELCAP PO SCH ×2 (09:00→21:26)
--- NOTE | 2022-05-28 09:10 | NUR ---
PT C/O PAIN ON EARS FROM NASAL CANNULA. NURSE ATTEMPTED TO READJUST FOR PT COMFORT. PT STATED "NO I DONT WANT IT FIXED, I WANT IT OFF" PT TEACHING REGARDING PT NEED FOR OXYGEN PT YELLS " I DONT FUCKING CARE, I WILL RIP IT OFF MYSELF" PT REMOVED NASAL CANNULA.
[2022-05-28] MEDS: ASCORBIC ACID 500 MG TAB PO SCH ×2 (09:13→21:26)
--- NOTE | 2022-05-28 09:14 | NUR ---
ADMINISTERED NORCO PER PT REQUEST FOR PAIN 02/03. PT REFUSED OTHER SCHEDULED MEDS. PT TEACHING REGARDING RISKS/BENEFITS. PT AGREED TO TAKE VITAMIN C. REFUSE COLACE.
--- NOTE | 2022-05-28 10:33 | NUR ---
MAKING ROUNDS. PT IN BED WITH EYES CLOSED PT ON O2 MONITOR SATURATION BETWEEN 89-90%. INFORMED PT HIS O2 SATURATION IS LOW AND HE SHOULD PUT N/C BACK ON. PT STATES " NO I DONT WANT IT" AND CLOSED EYES AGAIN. PT REFUSING O2.
[2022-05-28] MEDS: DEXAMETHASONE 4 MG/ML VIAL IVP SCH (11:11)
[2022-05-28] MEDS: VANCOMYCIN 1,500 MG in DEXTROSE 5% 500 ML IV SCH ×2 (11:19→23:59)
[2022-05-28 12:00] VITALS: BP 116/70
[2022-05-28] MEDS: INSULIN LISPRO SLIDING SCALE 100 UNITS/ML VIAL SUBQ PRN ×2 (12:22→16:49)
[2022-05-28] MEDS: MUPIROCIN CA NASAL 2% 1GM TUBE NS SCH (12:26)
--- NOTE | 2022-05-28 12:29 | NUR ---
ADMINISTERED INSULIN PER SLIDING SCALE AND BACTROBAN. PT TOLERATING WELL. NOTED WITH IV OUT. ATTEMPTED IV INSERTION X2. UNSUCCESSFUL ATTEMPTS.
--- NOTE | 2022-05-28 15:13 | NUR ---
NURSE WENT INTO PT ROOM TO CLEAN HIM AND REPOSITION HIM. PT STATES "IM CLEAN, IM NOT SOILED I DONT NEED TO BE CHANGED AND I DONT WANT TO MOVE", PT TEACHING REGARDING BEDSORES AND SKIN BREAKDOWN. PT STILL REFUSING. STATES "IT HURTS TOO MUCH TO MOVE" PT HAS BEEN MEDICATED, STILL REFUSING.
[2022-05-28 16:00] VITALS: BP 111/75
--- NOTE | 2022-05-28 16:30 | NUR ---
[place] SECURITY PROGRAM SPECIALIST INFORMED NURSE PT IS REFUSING CLEANING, NURSE WENT IN ROOM TO EXPLAIN TO PT RISKS AND BENEFITS. PT REFUSED CARE.
--- NOTE | 2022-05-28 18:00 | NUR ---
MAKING ROUNDS INFORMED PT SHIFT WILL BE OVER SOON AND WOULD LIKE TO LEAVE HIM CLEAN FOR SHIFT CHANGE. PT DECLINED, STATED "I CAN'T MOVE" NURSE TOLD PT HE WOULD NOT NEED TO MOVE, NURSE AND BOARD RUNNER WILL TURN HIM.. PT STATES "NO I DONT WANT TO DO THAT" PT TEACHING REGARDING SKIN BREAKDOWN PT CONTINUES TO DECLINE CARE AT THIS TIME.
--- NOTE | 2022-05-28 19:30 | NUR ---
ENDORSED PT TO WAGE AND HOUR INVESTIGATOR NURSE FOR CONTINUITY OF CARE. PT IN STABLE CONDITION.
--- NOTE | 2022-05-28 19:30 | NUR ---
RECD. RESTING IN BED, AWAKE, A/OX4. RESPIRATION EVEN AND UNLABORED. ON 02 AT 2 LITERS VIA N/C, 02 SAT -96%. IV OF NS INFUSING AT THE LEFT FOREARM G20. FOOD FOR DINNER AT THE BEDSIDE TABLE UNTOUCHED, ENCOURAGED TO EAT BUT STATED "NO". EXPLAINED THE IMPORTANCE OF EATING REGULAR MEALS. REFUSED TO TAKE OUT BLANKET TO CHECK HIS SKIN ON BILATERAL LOWER EXTREMITIES. ITH CONDO CATH CONNECTED TO F/C BAG DRAINING CLEAR YELLOW URINE. DENIES PAIN 0/10.
--- NOTE | 2022-05-28 19:31 | NUR ---
Patient's Plan of Care was discussed and reviewed with FIDENCIO: AMIE
[2022-05-28 20:00] VITALS: BP 105/69
--- NOTE | 2022-05-28 21:26 | NUR ---
WARM FOOD AND ASSISTED TO EAT. ATE 95% OF DINNER.
[2022-05-28] MEDS ORDERED: VANCOMYCIN 500 MG VIAL ONE (23:24)
[2022-05-28] MEDS ORDERED: VANCOMYCIN 1,000 MG VIAL ONE (23:24)
--- NOTE | 2022-05-28 23:59 | NUR ---
PATIENT RESTING COMFORTABLY IN BED. IVPB VANCOMYCIN ADMINISTERED BY LALA RADFORD.
[2022-05-29] VITALS: BP 102/68
--- NOTE | 2022-05-29 01:00 | NUR ---
SLEEPING COMFORTABLY IN BED, ON 2 LITERS VIA NC/
--- NOTE | 2022-05-29 03:00 | NUR ---
CHECKED PATIENT, STILL SLEEPING, 02 SAT - 94% ON 2 LITERS 02 VIA N/C.
[2022-05-29 04:00] VITALS: BP 122/80
[2022-05-29] MEDS: BLOOD GLUCOSE MONITORING 1 DEV DEV FS SCH ×4 (06:08→21:00)
--- NOTE | 2022-05-29 06:08 | NUR ---
BLOOD SUGAR CHECKED - 124. NO COVERAGE. SLEEPING COMFORTABLY IN BED.
--- NOTE | 2022-05-29 07:10 | NUR ---
CONDITION REMAIN STABLE. ENDORSED TO LALA SOARES FOR CONTINUITY OF CARE.
[2022-05-29 07:18] LABS: ANION GAP 8.1 (8-16); CARBON DIOXIDE 30.3 mmol/L (21-32); CREATININE 0.6 mg/dL (0.6-1.3); POTASSIUM 4.4 mmol/L (3.5-5.1)
--- NOTE | 2022-05-29 07:30 | NUR ---
RECEIVED REPORT FROM PREPARATION SUPERVISOR NURSE FOR CONTINUITY OF CARE, POC DISCUSSED. PT RESTING IN BED WITH CHEST RISING AND FALLING EVEN AND UNLABORED ON 2LNC. NO S/S OF ACUTE DISTRESS. ON TELE MONITOR. ALL SAFETY MEASURES IN PLACE, CALL LIGHT WITHIN REACH. WILL CONTINUE TO MONITOR.
[2022-05-29 08:00] VITALS: BP 122/87
[2022-05-29] MEDS: HYDROcodone/APAP 10/325 MG 1 TAB TAB PO PRN (08:23)
[2022-05-29] MEDS: ASCORBIC ACID 500 MG TAB PO SCH ×2 (08:23→20:24)
[2022-05-29] MEDS: DOCUSATE SODIUM 100 MG GELCAP PO SCH ×2 (08:23→20:24)
[2022-05-29] MEDS: DEXAMETHASONE 4 MG/ML VIAL IVP SCH (08:24)
--- NOTE | 2022-05-29 09:38 | NUR ---
ALL MORNING MEDICATION ADMINISTERED PER MD ORDER, PT REFUSED HEP. MD AT BEDSIDE. PRN NORCO ADMINISTERED PER MD ORDER FOR PAIN. MORNING ASSESSMENT COMPLETED, BILATERAL LOWER EXTREMITY EDEMA NOTED, +2 PEDAL PULSES, LEFT LUNG WHEEZING, ON 2L NC, HYPOACTIVE BOWEL SOUNDS. PT REFUSING TO BE CLEANED AT THIS TIME. TANK CAR MECHANIC AT BEDSIDE ASSISTING WITH PT EATING. PT EDUCATED ON IMPORTANCE OF SITTING UP TO PREVENT ASPIRATION, HOWEVER PT REFUSES AND STATES IT IS TOO PAINFUL. ALL SAFETY MEASURES IN PLACE, CALL LIGHT WITHIN REACH. WILL CONTINUE TO MONITOR.
[2022-05-29] MEDS: MUPIROCIN CA NASAL 2% 1GM TUBE NS SCH (11:50)
[2022-05-29] MEDS: VANCOMYCIN HCL 1.25 GM in DEXTROSE 5% 250 ML IV SCH ×2 (11:50→22:25)
[2022-05-29] MEDS: INSULIN LISPRO SLIDING SCALE 100 UNITS/ML VIAL SUBQ PRN ×2 (11:57→17:02)
[2022-05-29 12:00] VITALS: BP 117/77
--- NOTE | 2022-05-29 13:15 | NUR ---
ROUNDED ON PT, PT REPORTS ALL NEEDS ARE BEING MET. NO S/S OF DISTRESS. ALL SAFETY MEASURES IN PLACE, CALL LIGHT WITHIN REACH. WILL CONTINUE TO MONITOR.
--- NOTE | 2022-05-29 14:40 | NUR ---
ROUNDED ON PT, PT IS ASLEEP IN BED WITH CHEST RISING AND FALLING EVEN AND UNLABORED. PT ON 2L NC. ALL SAFETY MEASURES IN PLACE, CALL LIGHT WITHIN REACH. WILL CONTINUE TO MONITOR.
--- NOTE | 2022-05-29 15:23 | NUR ---
NARCISO SCHEDULED FOR 05/30/22 AT 0930 IN OR WITH RT PRETTY AND DIETETIC AIDE GISSELL, UNDER DR TRIVEDI. CHARGE NURSE NOTIFIED. PAPER IN CHART
--- NOTE | 2022-05-29 15:47 | NUR ---
PT REFUSING ALL DAY FOR BED BATH, CLEANING, LINEN SHEET CHANGE. EDUCATED ON IMPORTANCE OF GETTING CLEANED AND HOW IT WILL MAKE PT FEEL BETTER. PT STATES HE UNDERSTANDS BUT HE HAS NOT HAD A BOWEL MOVEMENT AND WANTS TO BE LEFT ALONE.
[2022-05-29 16:00] VITALS: BP 121/76
--- NOTE | 2022-05-29 17:08 | NUR ---
BLOOD GLUCOSE OF 173, 2 UNITS OF INSULIN ADMINISTERED PER SLIDING SCALE. PT REPORTS ALL NEEDS MET. ALL SAFETY MEASURES IN PLACE, CALL LIGHT WITHIN REACH.
--- NOTE | 2022-05-29 17:12 | NUR ---
DC PLANNING: CALLED [facility] [phone] SPOKE WITH HARRIET STATED WORKING ON TRANSFERRING TO [facility], STILL AWAITING FOR BED AND ACCEPTING DR. SHE PROVIDED THE AUTH FOR TRANSPORT AUTH # FOR [facility] [place] [id number] ARRANGED TRANSPORT WITH [facility] IT WILL CALL. NOTIFIED ROSS CHARGE NURSE. CM TO FOLLOW Addendum: 05/30/22 at 1516 by Kay Gonzalez RN DC PLANNING: RECEIVED A CALL FROM [facility] HARRIET STATED WORKING ON TRANSFERRING TO THE CONTRACTED FACILITY. PEER TO PEER WAS DONE WITH DR NICOLE. SPOKE WITH PATIENT AND HE AGREED ON TRANSFERRING TO THE CONTRACTED FACILITY. DC PLAN AWAITING FOR BED. NOTIFIED CECILIO REEVES. ARRANGED TRANSPORT WITH [facility] IT WILL CALL CM TO FOLLOW . Addendum: 06/02/22 at 1351 by Kay Gonzalez RN DC PLANNING: CALLED [facility] [phone] SPOKE WITH HARRIET LÓPEZ STATED STILL AWAITING FOR BED AT CONTRACTED FACILITIES, CM UPDATED PT'S CLINICAL FAXED CT OF BILATERAL HIP . CM SPOKE WITH PT'S SISTER UPDATED CLINICALS AND PER PRIMARY NURSE PT AGREED TO HAVE NARCISO PROCEDURE SCHEDULE AT 2 PM. CM TO FOLLOW Addendum: 06/03/22 at 1227 by Kay Gonzalez RN DC PLANNING: CALLED [facility] [phone] SPOKE WITH HARRIET LÓPEZ NOTIFIED HER THAT NARCIOS WILL BE DONE TODAY AND SCHEDULED TO PERFORM BILATERAL HIP ASPIRATION AND SAYED ORTHO WILL PLAN TO PERFORM SURGERY. PER HARRIET OK TO DO THE HIP ASPIRATION AND REQUESTED ATTENDING'S PHONE NUMBER. CM PROVIDE DR ROCHA'S NUMBER . PER HARRIET STILL PENDING BED AT [facility] BUT WILL REQUEST TO [facility]. CM TO FOLLOW Addendum: 06/12/22 at 1443 by Kay Gonzalez RN DC PLANNING: PER INSURANCE PURPOSE PATIENT CAN NOT GO BACK TO [facility]. CM SPOKE WITH HARRIET LÓPEZ AT [facility] TO FAX IT TO THE CONTRACTED FACILITIES. CM FA[facility]ED THE REQUEST TO [facility], [facility], [facility]. CM TO FOLLOW Addendum: 06/12/22 at 1540 by Kay Gonzalez RN DC PLANNING: [facility]POKE WITH [facility] , CAN ACCEPT PATIENT, LEFT A MESSAGE FOR [facility] [place] FOR AUTHORIZATION. ONCE PT HAS DC ORDER [facility] CM TO FOLLOW
--- NOTE | 2022-05-29 18:39 | NUR ---
ALL NEEDS HAVE BEEN MET THROUGHOUT THE SHIFT, ALL SAFETY MEASURES IN PLACE. CALL LIGHT WITHIN REACH. WILL ENDORSE TO PRIVATE DUTY LPN AT 1900.
--- NOTE | 2022-05-29 19:30 | NUR ---
RECEIVED REPORT FROM DAY SHIFT NURSE FANY FOR CONTINUITY OF CARE. PATIENT IS A&O X4. PATIENT IS ON 2L NC; BREATHING IS NORMAL WITH SYMMETRICAL RISE AND FALL OF CHEST. IV IS A LFA 20G; RUNNING NS TKO. PATIENT IS SLEEPING IN BED, LYING SUPINE. WHEELS LOCKED, CALL LIGHT IN PLACE. WILL CONTINUE TO OBSERVE PATIENT.
[2022-05-29 20:00] VITALS: BP 109/69
[2022-05-30] MEDS: HYDROcodone/APAP 10/325 MG 1 TAB TAB PO PRN ×4 (00:20→16:15)
[2022-05-30 04:00] VITALS: BP 112/70
--- NOTE | 2022-05-30 04:30 | NUR ---
PATIENT SLEPT THROUGHOUT THE NIGHT. IV IS STILL PATENT. PATIENT IS BREATHING NORMAL WITH SYMMETRICAL RISE AND FALL OF CHEST. WILL CONTINUE TO OBSERVE PATIENT.
[2022-05-30] MEDS: BLOOD GLUCOSE MONITORING 1 DEV DEV FS SCH ×4 (06:42→22:15)
[2022-05-30 06:50] LABS: ANION GAP 10.5 (8-16); CARBON DIOXIDE 28.7 mmol/L (21-32); CREATININE 0.7 mg/dL (0.6-1.3); POTASSIUM 4.2 mmol/L (3.5-5.1)
--- NOTE | 2022-05-30 07:20 | NUR ---
ENDORSED TO DAY SHIFT NURSE CECILIO FOR CONTINUITY OF CARE. PATIENT IS STABLE.
--- NOTE | 2022-05-30 07:42 | NUR ---
RECEIVED PT CARE AND REPORT FROM ALTA REEVES. PT IS RESTING IN BED SUPINE, A&OX4, APPEARS IRRITABLE. STATED HE IS REFUSING VITAL SIGNS AND ALL MEDICATIONS THIS MORNING EXCEPT PAIN MEDS. BEGAN TO DISCUSS 0930 PROCEDURE FOR TRANSESOPHAGEAL ECHO WITH PATIENT. PT STATED HE IS REFUSING AND DOES NOT WANT TO DO IT. ATTEMPTED TO EDUCATE PATIENT BUT HE IS UNWILLING TO LISTEN. WILL REPORT TO CHARGE NURSE ROSS. CALL LIGHT IS WITHIN REACH, ALL NEEDS MET AT THIS TIME.
--- NOTE | 2022-05-30 07:50 | NUR ---
STUDENT SMITH WAS ABLE TO TAKE VITAL SIGNS FROM PATIENT. BP: 130/80, HR: 78, SAT: 96%, RR: 14, PAIN 8/10. NO TEMP.
[2022-05-30] MEDS: DEXAMETHASONE 4 MG/ML VIAL IVP SCH (08:46)
[2022-05-30] MEDS: ASCORBIC ACID 500 MG TAB PO SCH ×2 (08:46→20:36)
[2022-05-30] MEDS: DOCUSATE SODIUM 100 MG GELCAP PO SCH ×2 (08:46→20:36)
--- NOTE | 2022-05-30 09:41 | NUR ---
TEXTED DR. ROCHA TO REPORT PATIENT'S REFUSAL OF MORNING CARE, MEDICATIONS AND TRANSESOPHAGEAL EXAM THIS MORNING.
[2022-05-30] MEDS ORDERED: METH4TAB1 PO (11:12)
--- NOTE | 2022-05-30 11:18 | NUR ---
PHARMACY CALLED AND REPORTED VANCO TROUGH LEVEL 20.8. Addendum: 05/30/22 at 1149 by Agency Sim REEVES RN LAB CALLED, NOT PHARMACY/
--- NOTE | 2022-05-30 12:24 | NUR ---
CALLED AND SPOKE WITH TIME STUDY CLERK KALI. STATED THAT SHE IS LOOKING FOR PLACEMENT FOR PATIENT AT DIFFERENT HOSPITAL. AWAITING FURTHER INSTRUCTION.
--- NOTE | 2022-05-30 12:58 | NUR ---
PATIENT CONTINUES TO REFUSE CARE. VITAL SIGNS NOT TAKEN.
--- NOTE | 2022-05-30 14:46 | NUR ---
SPOKE WITH ASSISTANT AUTO CENTER MANAGER KALI. STATED THAT PATIENT REQUIRED CD OF IMAGING FOR CONTRACTED FACILITY THAT PATIENT WILL BE TRANSFERRED TO. ORDER PLACED.
[2022-05-30] MEDS ORDERED: VANC1PLA7 IV (15:08)
--- NOTE | 2022-05-30 16:00 | NUR ---
PATIENT REFUSED TO HAVE VITAL SIGNS TAKEN REPORTED BY TELMA ROUSE. WHEN PATIENT WAS ASKED ABOUT REFUSAL, HE STATED, "I JUST WANT MY PAIN MEDICATION.". WOULD NOT SPEAK AFTER THIS COMMENT.
[2022-05-30] MEDS: VANCOMYCIN 1,000 MG in DEXTROSE 5% 250 ML IV SCH (18:00)
--- NOTE | 2022-05-30 18:18 | NUR ---
PATIENT REFUSED VANCOCIN.
--- NOTE | 2022-05-30 18:34 | NUR ---
PATIENT IS RESTING IN BED SUPINE. NO VISIBLE S/S OF DISTRESS OR DISCOMFORT. DENIES PAIN AND SOB AT THIS TIME. PATIENT IS REFUSING MEDICAL CARE AT THIS TIME. CALL LIGHT IS WITHIN REACH, ALL NEEDS HAVE BEEN MET AT THIS TIME. WILL ENDORSE TO NOC SHIFT.
--- NOTE | 2022-05-30 20:59 | NUR ---
Pt's family (sister and her ) visited for a short while. Pt's sister brought in tacos which pt ate quickly. After visitors left, pt was medication compliant (all meds due were administered).
[2022-05-31] MEDS: HYDROcodone/APAP 10/325 MG 1 TAB TAB PO PRN ×4 (00:01→21:55)
[2022-05-31] MEDS: VANCOMYCIN 1,000 MG in DEXTROSE 5% 250 ML IV SCH ×2 (05:54→18:00)
[2022-05-31 07:04] LABS: BASOPHILS # (AUTO) 0.1 K/uL (0.00-0.22); BASOPHILS % (AUTO) 0.3 % (0.0-2.0); EOSINOPHILS # (AUTO) 0.1 K/uL (0-0.4); EOSINOPHILS % (AUTO) 0.3 % (0.0-4.0); HEMOGLOBIN 13.3 g/dL (12.0-18.0); LYMPHOCYTES # (AUTO) 2.9 K/uL (2.0-11.5); LYMPHOCYTES % (AUTO) 14.2 % (20.5-51.1); MEAN CORPUSCULAR HEMOGLOBIN 27 pg (27-31); MEAN CORPUSCULAR HGB CONC 32 g/dL (33-37); MEAN CORPUSCULAR VOLUME 83.6 fL (80-94); MONOCYTES # (AUTO) 1.6 K/uL (0.8-1.0); MONOCYTES % (AUTO) 7.9 % (1.7-9.3); NEUTROPHILS # (AUTO) 15.6 K/uL (1.8-7.7); NEUTROPHILS % (AUTO) 77.3 % (42.2-75.2); PLATELET COUNT (AUTO) 214 K/uL (140-450); RED BLOOD CELL COUNT(AUTO) 4.91 MIL/uL (4.20-6.10); RED CELL DISTRIBUTION WIDTH 14.9 % (11.6-13.7); WHITE BLOOD COUNT (AUTO) 20.2 K/uL (4.8-10.8)
[2022-05-31 07:09] LABS: CARBON DIOXIDE 28.2 mmol/L (21-32); CREATININE 0.7 mg/dL (0.6-1.3); POTASSIUM 4.2 mmol/L (3.5-5.1)
[2022-05-31] MEDS: BLOOD GLUCOSE MONITORING 1 DEV DEV FS SCH ×4 (07:21→20:52)
--- NOTE | 2022-05-31 07:55 | NUR ---
RECEIVED PT CARE AND REPORT FROM RENÉ REEVES. PT IS RESTING IN BED SUPINE, A&OX4, APPEARS CALM. NO VISIBLE S/S OF DISTRESS OR DISCOMFORT. DENIES ANY PAIN OR SOB. PATIENT STATED THAT HE DOES NOT WANT HIS 0900 MEDICATIONS THIS MORNING. STATES HE WANTS TO REST. PT SAID HE IS AWARE OF THE SIDE EFFECTS OF NOT TAKING HIS MEDICATIONS. CALL LIGHT IS WITHIN REACH, ALL NEEDS MET AT THIS TIME.
[2022-05-31 08:00] VITALS: BP 120/74
[2022-05-31] MEDS: ASCORBIC ACID 500 MG TAB PO SCH ×2 (09:00→21:09)
[2022-05-31] MEDS: DEXAMETHASONE 4 MG/ML VIAL IVP SCH (09:00)
[2022-05-31] MEDS: DOCUSATE SODIUM 100 MG GELCAP PO SCH ×2 (09:00→21:09)
--- NOTE | 2022-05-31 09:15 | NUR ---
SPOKE WITH PATIENT'S SISTER. SHE STATED THAT PATIENT HAS POOR VISION AND IS ONLY ABLE TO SEE SIMPLE FIGURES. STATES THAT RIGHT EYE ONLY SEES BLACK DOT. STATES THAT HE WAS ABLE TO SEE IN FEBRUARY. SISTER ALSO STATES THAT SHE SPOKE WITH PATIENT AND THEY ARE NOW WILLING TO HAVE TRANSESOPHAGEAL ECHO DONE. WILL TEXT DR. ROCHA WITH THIS INFORMATION.
[2022-05-31] MEDS: INSULIN LISPRO SLIDING SCALE 100 UNITS/ML VIAL SUBQ PRN ×3 (11:38→20:59)
--- NOTE | 2022-05-31 13:38 | NUR ---
OFFERED PT TO CHANGE SHEETS AND CLEAN HIM. PT REFUSED, STATING, "NO, IM SLEEPING.". WILL ATTEMPT TO CHANGE LATER.
[2022-05-31 16:00] VITALS: BP 110/73
--- NOTE | 2022-05-31 18:46 | NUR ---
PATIENT IS RESTING IN BED SUPINE WITH OU CLOSED. NO VISIBLE S/S OF DISTRESS, DISCOMFORT, PAIN OR SOB. CALL LIGHT IS WITHIN REACH. PER [place]RONA ROUSE, PATIENT CONTINUED TO REFUSE TURNING OR CHANGING. PT DOES NOT ALLOW FULL ASSESSMENT OR CLEANING. CALL LIGHT LEFT WITHIN REACH OF PATIENT. ALL NEEDS MET AT THIS TIME. WILL ENDORSE TO NOC SHIFT.
--- NOTE | 2022-05-31 18:46 | NUR ---
1800 PT REFUSED CYNTHIA
--- NOTE | 2022-05-31 19:05 | NUR ---
RECEIVED PATIENT LYING ON THE BED, ON O2 NC, NO SIGNS OF PAIN NOTED. IV SITE ON LEFT FOREARM, PATENT AND INTACT. CALL LIGHT WITHIN REACH.
--- NOTE | 2022-05-31 20:20 | NUR ---
PT WAS SEEN AND ASSESSED. PT WAS RESTING IN BED. PT ON 1L NASAL CANNULAR WITH SPO2 OF 98%. NO RESPIRATORY DISTRESS NOTED AT THIS TIME. WILL CONTINUE TO MONITOR PT.
--- NOTE | 2022-05-31 21:10 | NUR ---
SCHEDULED MEDICATIONS GIVEN ORDERED. BS 199MG/DL, GIVEN 2 UNITS HUMALOG ORDERED. ALL SAFETY MEASURES IN PLACE. PATIENT REFUSED TO BE CHANGED.
--- NOTE | 2022-05-31 22:55 | NUR ---
PATIENT IS ASLEEP, NO SIGNS OF PAIN NOTED, NO SIGNS OF DISTRESS NOTED.
--- NOTE | 2022-06-01 01:10 | NUR ---
CHECKED ON PATIENT. PATIENT HAS DRESSINGS ON BILATERAL LOWER LEG(LATERAL). PATIENT REFUSED TO BE REPOSITIONED, PATIENT REFUSED TO BE CHANGED.
[2022-06-01 04:00] VITALS: BP 134/85
[2022-06-01] MEDS: HYDROcodone/APAP 10/325 MG 1 TAB TAB PO PRN ×3 (05:33→18:55)
--- NOTE | 2022-06-01 05:33 | NUR ---
PATIENT C/O 9/10 PAIN ON LEFT HIP, PRN NORCO GIVEN ORDERED. PATIENT REFUSED TO BE CHANGE. CALL LIGHT WITHIN REACH.
[2022-06-01 05:44] LABS: BASOPHILS # (AUTO) 0.1 K/uL (0.00-0.22); BASOPHILS % (AUTO) 0.6 % (0.0-2.0); EOSINOPHILS # (AUTO) 0.1 K/uL (0-0.4); EOSINOPHILS % (AUTO) 0.4 % (0.0-4.0); HEMOGLOBIN 13.9 g/dL (12.0-18.0); LYMPHOCYTES # (AUTO) 2.3 K/uL (2.0-11.5); LYMPHOCYTES % (AUTO) 13.4 % (20.5-51.1); MEAN CORPUSCULAR HEMOGLOBIN 28 pg (27-31); MEAN CORPUSCULAR HGB CONC 33 g/dL (33-37); MEAN CORPUSCULAR VOLUME 83.8 fL (80-94); MONOCYTES # (AUTO) 1.3 K/uL (0.8-1.0); MONOCYTES % (AUTO) 7.7 % (1.7-9.3); NEUTROPHILS # (AUTO) 13.4 K/uL (1.8-7.7); NEUTROPHILS % (AUTO) 77.9 % (42.2-75.2); PLATELET COUNT (AUTO) 200 K/uL (140-450); RED BLOOD CELL COUNT(AUTO) 5.02 MIL/uL (4.20-6.10); RED CELL DISTRIBUTION WIDTH 15.2 % (11.6-13.7); WHITE BLOOD COUNT (AUTO) 17.2 K/uL (4.8-10.8)
[2022-06-01] MEDS: VANCOMYCIN 1,000 MG in DEXTROSE 5% 250 ML IV SCH ×2 (06:00→17:55)
[2022-06-01] MEDS: BLOOD GLUCOSE MONITORING 1 DEV DEV FS SCH ×4 (06:32→21:05)
[2022-06-01 07:02] LABS: ANION GAP 11.7 (8-16); CARBON DIOXIDE 28.6 mmol/L (21-32); CREATININE 0.6 mg/dL (0.6-1.3); POTASSIUM 4.3 mmol/L (3.5-5.1)
--- NOTE | 2022-06-01 07:07 | NUR ---
ENDORSED PATIENT TO DAY NURSE FOR CONTINUITY OF CARE. PATIENT IN STABLE CONDITION.
--- NOTE | 2022-06-01 07:57 | NUR ---
got report from the night nurse pt sleeping, no sob. [email or web address]
[2022-06-01 08:00] VITALS: BP 116/69
[2022-06-01] MEDS: DEXAMETHASONE 4 MG/ML VIAL IVP SCH (08:27)
[2022-06-01] MEDS: ASCORBIC ACID 500 MG TAB PO SCH ×2 (08:27→21:15)
[2022-06-01] MEDS: DOCUSATE SODIUM 100 MG GELCAP PO SCH ×2 (08:28→21:15)
[2022-06-01 11:18] LABS: PROTHROMBIN TIME 10.9 secs (10.8-13.4)
[2022-06-01] MEDS: INSULIN LISPRO SLIDING SCALE 100 UNITS/ML VIAL SUBQ PRN ×3 (11:42→21:11)
--- NOTE | 2022-06-01 13:55 | NUR ---
PT REFUSED THE DRESSING CHANGE IN HIS LEG, EXPLAINED THE LUCK OF DRESSING WILL FARTHER WILL BREAK HIS SKIN AND THAT WE WILL BE VERY CAREFUL WHEN MOVING HIM , BUT PATIENT SAYS I AM TIERED I DO NOT WANT TO MOVE,. [id number]
--- NOTE | 2022-06-01 15:35 | NUR ---
06/01/22 RD FOLLOW UP COMPLETED.PLEASE REFER TO NUTRITION ASSESSMENT UNDER CARE ACTIVITY FOR ESTIMATED NUTRITIONAL NEEDS. 1. [facility] 2. RECOMMEND KACI BID + GLUCERNA TO PROMOTE WOUND HEALING 3. MONITOR FOR WOUND HEALING 4. RD TO FOLLOW-UP 3-5 DAYS, MODERATE RISK ANNELIESE BARCLAY RD
--- NOTE | 2022-06-01 16:10 | NUR ---
PT REFUSED TO ROBBIE CONSENT FOR NARCISO, EXPLAINED THAT THE DR EXPLAINED TO YOU , HE IGNORED TO ANSWER ANY QUESTIONS . DID NOT WANT TO TALK TO ME. STUDENT NOTIFIED THE CONSENT FORM IS IN THE CHART,
[2022-06-01 17:31] VITALS: BP 109/73
--- NOTE | 2022-06-01 18:11 | NUR ---
PT REFUSED TO BE CHANGED CAN SEE BM SEEPING THROUGH THE SHEET EXPLAINED TO HIM THE NEED TO CHANGE FOR HIM AND ALSO FOR ANYBODY WHO IS IN CONTACT WITH HIM . PT SAYS I" DO NOT WANT ANYONE TO TOUCH ME " CALL MY SISTER AND TELL HER TO CAME UNTIL SHE AND MY BROTHER IN [place] GETS HER NO BODY SHOULD TOUCH HIM. ALSO I DO NOT WANT ANYONE COMING TO THE WHILE THEY ARE VISITING. I CALLED HIS SISTER PHONE NUMBER AND LEFT THE MESSAGE. [id number]
--- NOTE | 2022-06-01 18:55 | NUR ---
ABLE TO CHANGE THE BED AND THE DRESSING CHANGE IN THE WOUND, THE IV ON THE RIGHT WITH 22 G STARTED THE NEW CONDOM CATHETER IS PUT IN AND ALL THE TIME THE SECURITY PRESENT BECAUSE PT DID NOT WANT TO BE TOUCHED.[id number]
--- NOTE | 2022-06-01 19:25 | NUR ---
RECEIVED PATIENT LYING ON THE BED, BREATHING EVEN AND NON LABORED, NO SIGNS OF PAIN/DISCOMFORT NOTED. CALL LIGHT WITHIN REACH.
[2022-06-01 20:00] VITALS: BP 113/73
--- NOTE | 2022-06-01 21:15 | NUR ---
SCHEDULED MEDICATIONS GIVEN ORDERED. PATIENT INFORMED OF NPO STATUS AFTER MIDNIGHT, PATIENT VERBALIZED UNDERSTANDING. NPO SIGN PLACED OUTSIDE OF PATIENT'S ROOM.
--- NOTE | 2022-06-02 00:54 | NUR ---
PATIENT IS ASLEEP, BREATHING EVEN AND NON LABORED, NO SIGNS OF PAIN NOTED. CALL LIGHT WITHIN REACH.
[2022-06-02] MEDS: HYDROcodone/APAP 10/325 MG 1 TAB TAB PO PRN ×3 (01:25→14:07)
[2022-06-02 04:00] VITALS: BP 123/81
[2022-06-02] MEDS ORDERED: VANCOMYCIN PER PHARMACY MC PRN (06:10)
[2022-06-02] MEDS: VANCOMYCIN 1,000 MG in DEXTROSE 5% 250 ML IV SCH ×2 (06:13→18:43)
--- NOTE | 2022-06-02 06:15 | NUR ---
SCHEDULED VANCOCIN GIVEN. VANCO TROUGH 11.3.
[2022-06-02 06:20] LABS: ANION GAP 14.1 (8-16); CARBON DIOXIDE 28.6 mmol/L (21-32); CREATININE 0.7 mg/dL (0.6-1.3); POTASSIUM 4.7 mmol/L (3.5-5.1)
[2022-06-02] MEDS: BLOOD GLUCOSE MONITORING 1 DEV DEV FS SCH ×4 (06:33→21:15)
--- NOTE | 2022-06-02 07:31 | NUR ---
ENDORSED PATIENT TO DAY NURSE FOR CONTINUITY CARE. PATIENT IN STABLE CONDITION.
[2022-06-02 08:49] LABS: BASOPHILS # (AUTO) 0.1 K/uL (0.00-0.22); BASOPHILS % (AUTO) 0.4 % (0.0-2.0); EOSINOPHILS % (AUTO) 0.2 % (0.0-4.0); HEMATOCRIT 41.5 % (36-52); HEMOGLOBIN 13.5 g/dL (12.0-18.0); LYMPHOCYTES # (AUTO) 0.9 K/uL (2.0-11.5); LYMPHOCYTES % (AUTO) 6.7 % (20.5-51.1); MEAN CORPUSCULAR HEMOGLOBIN 27 pg (27-31); MEAN CORPUSCULAR HGB CONC 32 g/dL (33-37); MEAN CORPUSCULAR VOLUME 84.1 fL (80-94); MONOCYTES # (AUTO) 0.8 K/uL (0.8-1.0); NEUTROPHILS % (AUTO) 86.7 % (42.2-75.2); PLATELET COUNT (AUTO) 188 K/uL (140-450); RED BLOOD CELL COUNT(AUTO) 4.94 MIL/uL (4.20-6.10); RED CELL DISTRIBUTION WIDTH 15.7 % (11.6-13.7); WHITE BLOOD COUNT (AUTO) 12.7 K/uL (4.8-10.8)
[2022-06-02] MEDS: DEXAMETHASONE 4 MG/ML VIAL IVP SCH (09:10)
[2022-06-02] MEDS: ASCORBIC ACID 500 MG TAB PO SCH ×2 (09:10→21:24)
[2022-06-02] MEDS: DOCUSATE SODIUM 100 MG GELCAP PO SCH ×2 (09:11→21:27)
[2022-06-02 16:00] VITALS: BP 101/75
[2022-06-02] MEDS: INSULIN LISPRO SLIDING SCALE 100 UNITS/ML VIAL SUBQ PRN (21:23)
[2022-06-03] VITALS: BP 110/70
[2022-06-03] MEDS: VANCOMYCIN 1,000 MG in DEXTROSE 5% 250 ML IV SCH ×2 (05:18→18:17)
[2022-06-03] MEDS: BLOOD GLUCOSE MONITORING 1 DEV DEV FS SCH ×4 (06:28→21:12)
[2022-06-03] MEDS ORDERED: fentaNYL citrate 0.05 MG/ML VIAL IVP SCH (06:55)
[2022-06-03] MEDS ORDERED: MIDAZOLAM 5 MG/5 ML VIAL IV SCH (06:55)
[2022-06-03 07:31] LABS: BASOPHILS % (AUTO) 0.2 % (0.0-2.0); EOSINOPHILS # (AUTO) 0.1 K/uL (0-0.4); EOSINOPHILS % (AUTO) 0.7 % (0.0-4.0); HEMATOCRIT 38.8 % (36-52); HEMOGLOBIN 12.6 g/dL (12.0-18.0); LYMPHOCYTES # (AUTO) 1.9 K/uL (2.0-11.5); LYMPHOCYTES % (AUTO) 16.6 % (20.5-51.1); MEAN CORPUSCULAR HEMOGLOBIN 27 pg (27-31); MEAN CORPUSCULAR HGB CONC 32 g/dL (33-37); MEAN CORPUSCULAR VOLUME 83.6 fL (80-94); MONOCYTES % (AUTO) 8.8 % (1.7-9.3); NEUTROPHILS # (AUTO) 8.2 K/uL (1.8-7.7); NEUTROPHILS % (AUTO) 73.7 % (42.2-75.2); PLATELET COUNT (AUTO) 200 K/uL (140-450); RED BLOOD CELL COUNT(AUTO) 4.64 MIL/uL (4.20-6.10); RED CELL DISTRIBUTION WIDTH 15.6 % (11.6-13.7); WHITE BLOOD COUNT (AUTO) 11.2 K/uL (4.8-10.8)
[2022-06-03 08:00] VITALS: BP 115/76
[2022-06-03 08:01] LABS: ANION GAP 8.8 (8-16); CREATININE 0.6 mg/dL (0.6-1.3); POTASSIUM 3.8 mmol/L (3.5-5.1)
[2022-06-03] MEDS ORDERED: MIDAZOLAM 2 MG/2 ML VIAL ONE (08:06)
[2022-06-03] MEDS ORDERED: NALOXONE 0.4 MG/ML VIAL ONE (08:39)
[2022-06-03] MEDS ORDERED: FLUMAZENIL 0.5 MG/5 ML VIAL IVP ONE (08:39)
--- NOTE | 2022-06-03 08:53 | NUR ---
PT. REFUSE SKIN ASSESSMENT, PT. REFUSE TO BE TOUCHED/REPOSITION,SKIN CARE PLAN WITH RISK AND BENEFITS EXPLAIN, PT NOT ANSWERING. PENDING NARCISO PROCEDURE.
[2022-06-03] MEDS: DEXAMETHASONE 4 MG/ML VIAL IVP SCH (09:00)
[2022-06-03] MEDS: ASCORBIC ACID 500 MG TAB PO SCH ×2 (09:00→21:00)
[2022-06-03] MEDS: DOCUSATE SODIUM 100 MG GELCAP PO SCH ×2 (09:00→20:59)
[2022-06-03] MEDS: HYDROcodone/APAP 10/325 MG 1 TAB TAB PO PRN ×3 (09:58→18:23)
[2022-06-03] MEDS ORDERED: LIDOCAINE 1% 500 MG/ 50 ML VIAL INJ ONE ×2 (14:05→14:15)
[2022-06-03 16:00] VITALS: BP 107/69
--- NOTE | 2022-06-03 16:00 | NUR ---
PATIENT REFUSED NARCISO AND ULTRASOUND GUIDED ASPIRATION. REFUSED TO SIGN CONSENT FOR NARCISO. SIGNED ONLY CONSENT FOR ULTRASOUND GUIDED ASPIRATION WITNESSED BY DR. ROCHA AND RN. PATIENT STILL REFUSING PROCEDURE DONE.
--- NOTE | 2022-06-03 18:57 | NUR ---
PATIENT SISTER IS HERE. AWARE THAT THE PATIENT REFUSED PROCEDURE TO BE DONE UNLESS SISTER IS PRESENT. PER SISTER SHE WILL BE HERE TOMORROW. DR. ROCHA AND DR. TRIVEDI NOTIFIED THAT SISTER WANTS PROCEDURE TO BE DONE TOMORROW AND SHE WILL BE PRESENT.
--- NOTE | 2022-06-03 19:30 | NUR ---
RECEIVED REPORT FROM DAY SHIFT NURSE ADZE FOR CONTINUITY OF CARE. PATIENT IS A&O X4. PATIENT IS ON 2L NC; BREATHING IS NORMAL WITH SYMMETRICAL RISE AND FALL OF CHEST. IV IS A 22G RFA, RUNNING NS 10ML TKO. PATIENT IS SLEEPING, LYING SUPINE. WILL CONTINUE TO OBSERVE PATIENT.
[2022-06-03 20:00] VITALS: BP 110/66
--- NOTE | 2022-06-03 23:00 | NUR ---
DR. JAY REQUESTED TO DO NARCISO SURGERY ON PATIENT TOMORROW AT 1000; HOWEVER, MARKETING PROGRAMS MANAGER MELVIN INFORMED ME THAT THE PATIENT WAS ALREADY SCHEDULED FOR LEFT. VS BILATERAL HIP DEBRIDEMENT AT [address]. [address] JAY OF THIS AND HE RESPONDED STATING TO CANCEL THE NARCISO UNTIL THURSDAY. INFORMED MARKETING PROGRAMS MANAGER MELVIN OF DR. JAY'S REQUEST.
[2022-06-04 04:00] VITALS: BP 113/71
--- NOTE | 2022-06-04 04:00 | NUR ---
PATIENT HAS SLEPT THROUGH THE NIGHT. BREATHING IS NORMAL WITH SYMMETRICAL RISE AND FALL OF CHEST. WILL CONTINUE TO OBSERVE PATIENT.
[2022-06-04] MEDS: HYDROcodone/APAP 10/325 MG 1 TAB TAB PO PRN ×3 (04:54→17:35)
[2022-06-04] MEDS: BLOOD GLUCOSE MONITORING 1 DEV DEV FS SCH ×4 (06:53→20:47)
--- NOTE | 2022-06-04 07:30 | NUR ---
ENDORSED TO DAY SHIFT NURSE ADZE FOR CONTINUITY OF CARE. PATIENT IS STABLE.
[2022-06-04 07:33] LABS: ANION GAP 11.9 (8-16); CARBON DIOXIDE 29.1 mmol/L (21-32); CREATININE 0.6 mg/dL (0.6-1.3)
[2022-06-04 08:12] LABS: BASOPHILS % (AUTO) 0.3 % (0.0-2.0); EOSINOPHILS % (AUTO) 0.4 % (0.0-4.0); HEMATOCRIT 39.8 % (36-52); LYMPHOCYTES % (AUTO) 15.7 % (20.5-51.1); MEAN CORPUSCULAR HEMOGLOBIN 27 pg (27-31); MEAN CORPUSCULAR HGB CONC 33 g/dL (33-37); MEAN CORPUSCULAR VOLUME 83.3 fL (80-94); MONOCYTES # (AUTO) 1.2 K/uL (0.8-1.0); MONOCYTES % (AUTO) 9.3 % (1.7-9.3); NEUTROPHILS # (AUTO) 9.3 K/uL (1.8-7.7); NEUTROPHILS % (AUTO) 74.3 % (42.2-75.2); PLATELET COUNT (AUTO) 200 K/uL (140-450); RED BLOOD CELL COUNT(AUTO) 4.78 MIL/uL (4.20-6.10); RED CELL DISTRIBUTION WIDTH 15.5 % (11.6-13.7); WHITE BLOOD COUNT (AUTO) 12.5 K/uL (4.8-10.8)
--- NOTE | 2022-06-04 09:20 | NUR ---
ULTRASOUND GUIDED DRAINAGE OF LEFT HIP DONE BY DR. ALVAREZ AT THE BEDSIDE. TIME OUT WAS DONE PRIOR PROCEDURE. PATIENT TOLERATED PROCEDURE WELL.
--- NOTE | 2022-06-04 09:50 | NUR ---
PATIENT TRANSPORTED TO OR FOR SURGERY VIA BED ACCOMPANIED BY OR STAFF. STABLE AT THIS TIME.
[2022-06-04] MEDS ORDERED: MEPERIDINE 50 MG/ML SYR ONE ×2 (10:00→11:14)
[2022-06-04] MEDS ORDERED: fentaNYL citrate 0.05 MG/ML - 50mL vial IV ONE (10:00)
[2022-06-04] MEDS: DEXAMETHASONE 4 MG/ML VIAL IVP SCH (10:00)
[2022-06-04] MEDS: VANCOMYCIN 1,000 MG in DEXTROSE 5% 250 ML IV SCH ×2 (10:00→20:34)
[2022-06-04] MEDS ORDERED: OXYTOCIN 10 UNITS/ML VIAL ONE (10:00)
[2022-06-04] MEDS: DOCUSATE SODIUM 100 MG GELCAP PO SCH ×2 (10:00→20:32)
[2022-06-04] MEDS ORDERED: SEVOFLURANE 250 ML BTL INH ONE (10:00)
[2022-06-04] MEDS ORDERED: PROPOFOL 200 MG/20 ML VIAL IV ONE ×2 (10:00→11:01)
[2022-06-04] MEDS: ASCORBIC ACID 500 MG TAB PO SCH ×2 (10:00→20:32)
[2022-06-04] MEDS ORDERED: ceFAZolin 2,000 MG VIAL ONE (10:00)
[2022-06-04] MEDS ORDERED: fentaNYL citrate 0.05 MG/ML VIAL ONE (10:28)
[2022-06-04] MEDS ORDERED: LIDOCAINE 1% 500 MG/50 ML VIAL ONE (10:29)
[2022-06-04] MEDS ORDERED: BUPIVACAINE-MPF/EPI 0.5% 30 ML VIAL INJ ONE (10:29)
[2022-06-04] MEDS ORDERED: MEPERIDINE 25 MG/ML SYR ONE (11:02)
[2022-06-04] MEDS ORDERED: ceFAZolin 1,000 MG VIAL ONE (11:03)
[2022-06-04] MEDS ORDERED: VANCOMYCIN 1,000 MG VIAL ONE (11:30)
[2022-06-04] MEDS ORDERED: TRANEXAMIC ACID 1,000 MG/10 ML VIAL ONE (11:32)
[2022-06-04] MEDS ORDERED: PHENYLEPHRINE 10 MG/ML VIAL ONE (11:39)
[2022-06-04] MEDS ORDERED: ePHEDrine 50 MG/ML VIAL ONE (11:49)
[2022-06-04 13:00] VITALS: BP 121/68
--- NOTE | 2022-06-04 13:00 | NUR ---
PATIENT CAME BACK FROM OR. STABLE AT THIS TIME. NOTED HEART RATE ON 136-138. ASYMPTOMATIC. PATIENT DENIES ANY PAIN OR DISCOMFORT AT THIS TIME. STATES HE FEELS BETTER AND JUST WANTS TO SLEEP AT THIS TIME. DR. ROCHA NOTIFIED REGARDING PATIENT HR. SURGICAL INCISION TO LEFT HIP INTACT WITH KAMRON DRAIN TO GRAVITY. V/S STABLE. WILL MONITOR CLOSELY.
[2022-06-04 13:15] VITALS: BP 128/74
[2022-06-04 13:30] VITALS: BP 128/74
[2022-06-04 14:30] VITALS: BP 130/65
[2022-06-04] MEDS ORDERED: NACL 0.9% 1,000 ML IV ONE (14:55)
[2022-06-04 16:00] VITALS: BP 120/70
--- NOTE | 2022-06-04 16:51 | NUR ---
P.T. NOTES P.T. EVAL COMPLETED; REFER TO EVAL FOR DETAILS.
--- NOTE | 2022-06-04 18:42 | NUR ---
PATIENT REMAINS STABLE. BLOOD TRANSFUSION IS ON HOLD AT THIS TIME DUE TO HGB LEVEL WNL AND PATIENT REFUSED TO SIGN BLOOD TRANSFUSION CONSENT. DR. ROCHA MADE AWARE AND ORDERED TO HOLD BLOOD TRANSFUSION. ALL NEEDS ANTICIPATED AND MET. PATIENT REMAINS STABLE.
--- NOTE | 2022-06-04 19:30 | NUR ---
RECEIVED PT IN BED ASLEEP, EASILY AROUSABLE BY VERBAL STIMULI. DENIES PAIN AT THIS TIME. NO ACUTE RESPIRATORY DISTRESS NOTED. SKIN WARM AND DRY TO TOUCH. LEFT GROIN DRESSING CDI WITH KAMRON DRAIN NOTED SEROSANGENOUS FLUID. CONDOM CATHETER IN PLACE DRAINING YELLOW URINE BY GRAVITY. SAFETY PRECAUTION IN PLACE, CALL LIGHT IN REACH.
--- NOTE | 2022-06-04 20:47 | NUR ---
PT REFUSED BLOOD SUGAR CHECK AND PO MEDICATIONS.
[2022-06-04 21:54] LABS: APPEARANCE,UNSPUN,BODY FLUID CLOUDY (CLEAR); SPECIMENTYPE,BODY FLUID SYNOVIAL
[2022-06-04 21:55] LABS: APPEARANCE,SPUN,BODY FLUID CLOUDY (CLEAR); COLOR,BODY FLUID BROWN (LT YELLOW); POLYNUCLEAR, BODY FLUID 95 %; RBC, BODY FLUID 40000 /cu. mm.; TOTAL VOLUME,BODY FLUID 300 mL; WBC, BODY FLUID 21400 /cu. mm.
--- NOTE | 2022-06-04 22:00 | NUR ---
PT REFUSED TO BE REPOSITIONED, EDUCATED ON IMPORTANCE OF REPOSITIONING BUT STILL PT REFUSED.
[2022-06-05] VITALS: BP 107/69
--- NOTE | 2022-06-05 01:00 | NUR ---
NO URINE NOTED FROM THE DRAINAGE BAG OF THE CONDOM CATH, PT CLEAN. GOT AN ORDER FOR RAMÍREZ CATHETER INSERTION FROM DR. NICOLE. 0105- UPON GATHERING ALL SUPPLIES, PT VOIDED ON HIS OWN.
--- NOTE | 2022-06-05 04:49 | NUR ---
PATIENT REFUSED AM CARE, REFUSED TO BE REPOSITIONED.
[2022-06-05] MEDS: BLOOD GLUCOSE MONITORING 1 DEV DEV FS SCH ×4 (06:13→20:23)
--- NOTE | 2022-06-05 06:26 | NUR ---
PATIENT IS ASLEEP. NO S/SX OF PAIN NOR DISCOMFORT. ALL NEEDS ATTENDED TO. SAFETY PRECAUTIONS MAINTAINED, CALL LIGHT REMAINED WITHIN REACH.
--- NOTE | 2022-06-05 06:50 | NUR ---
PT SLEEPING. SATURATION 97% ON ROOM AIR. EQUAL CHEST RISE. NO DISTRESS NOTED. WILL CONTINUE TO MONITOR.
[2022-06-05 07:30] LABS: ANION GAP 9.2 (8-16); CARBON DIOXIDE 29.2 mmol/L (21-32); CREATININE 0.6 mg/dL (0.6-1.3); POTASSIUM 4.4 mmol/L (3.5-5.1)
[2022-06-05 08:00] VITALS: BP 117/81
--- NOTE | 2022-06-05 08:00 | NUR ---
RECEIVED PATIENT IN BED, ASLEEP, NOT IN ANY FORM OF DISTRESS, REFUSED TO BE ASSESSED, STATES HE IS SLEEPING AND DOES NOT WANT TO BE BOTHERED, LEFT HIP SURGICAL INCISION DRESSING CLEAN, DRY AND INTACT WITH KAMRON DRAIN IN PLACE DRAINING WELL, CONDOM CATHETER INPLACE DRAINING DARK SUBHA URINE, DENIES ANY PAIN OR DISCOMFORT AT THIS TIME, PLAN OF CARE UPDATED, WILL CONTINUE TO MONITOR.
[2022-06-05] MEDS: VANCOMYCIN 1,000 MG in DEXTROSE 5% 250 ML IV SCH ×2 (09:21→20:25)
[2022-06-05] MEDS: ASCORBIC ACID 500 MG TAB PO SCH ×2 (09:22→20:25)
[2022-06-05] MEDS: DOCUSATE SODIUM 100 MG GELCAP PO SCH ×2 (09:22→20:25)
[2022-06-05] MEDS: DEXAMETHASONE 4 MG/ML VIAL IVP SCH (09:22)
[2022-06-05] MEDS: INSULIN LISPRO SLIDING SCALE 100 UNITS/ML VIAL SUBQ PRN ×2 (12:28→20:28)
[2022-06-05] MEDS: HYDROcodone/APAP 10/325 MG 1 TAB TAB PO PRN (15:51)
[2022-06-05 16:00] VITALS: BP 96/66
--- NOTE | 2022-06-05 19:10 | NUR ---
RECEIVED PT IN BED ASLEEP, EASILY AROUSABLE BY VERBAL STIMULI. DENIES PAIN. NO ACUTE RESPIRATORY DISTRESS. PATIENT AGREED TO HAVE INCISION CHECKED, DRESSING CDI IN THE LEFT GROIN AREA WITH KAMRON DRAIN X1 WITH MINIMAL AMOUNT OF SEROSANGENOUS FLUID, BUT PATIENT REFUSED TO BE REPOSITIONED, EDUCATED ON IMPORTANCE OF TURNING BUT STILL REFUSED. BED IN THE LOWEST AND LOCKED POSITION FOR SAFETY, CALL LIGHT IN REACH, INSTRUCTED TO CALL IF ASSISTANCE IS NEEDED, PT VERBALLY AGREED.
[2022-06-05 19:20] LABS: BASOPHILS % (AUTO) 0.3 % (0.0-2.0); EOSINOPHILS % (AUTO) 0.1 % (0.0-4.0); HEMATOCRIT 29.6 % (36-52); HEMOGLOBIN 9.9 g/dL (12.0-18.0); LYMPHOCYTES % (AUTO) 14.4 % (20.5-51.1); MEAN CORPUSCULAR HEMOGLOBIN 28 pg (27-31); MEAN CORPUSCULAR HGB CONC 33 g/dL (33-37); MEAN CORPUSCULAR VOLUME 82.8 fL (80-94); MONOCYTES # (AUTO) 1.1 K/uL (0.8-1.0); MONOCYTES % (AUTO) 7.8 % (1.7-9.3); NEUTROPHILS # (AUTO) 10.6 K/uL (1.8-7.7); NEUTROPHILS % (AUTO) 77.4 % (42.2-75.2); PLATELET COUNT (AUTO) 181 K/uL (140-450); RED BLOOD CELL COUNT(AUTO) 3.57 MIL/uL (4.20-6.10); RED CELL DISTRIBUTION WIDTH 15.1 % (11.6-13.7); WHITE BLOOD COUNT (AUTO) 13.7 K/uL (4.8-10.8)
[2022-06-06] VITALS (13 sets, daily range): BP systolic 92–153; BP diastolic 58–95
--- NOTE | 2022-06-06 | NUR ---
PATIENT IS ASLEEP. BREATHING EVEN AND UNLABORED. CALL LIGHT IN REACH.
[2022-06-06] MEDS: HYDROcodone/APAP 10/325 MG 1 TAB TAB PO PRN (03:59)
--- NOTE | 2022-06-06 05:00 | NUR ---
PATIENT REFUSED AM CARE.
--- NOTE | 2022-06-06 06:11 | NUR ---
PATIENT IS ASLEEP. ALL NEEDS ATTENDED TO. NO DISTRESS NOTED. SAFETY PRECAUTIONS MAINTAINED DURING THE SHIFT, CALL LIGHT REMAINS WITHIN REACH.
[2022-06-06] MEDS: BLOOD GLUCOSE MONITORING 1 DEV DEV FS SCH ×3 (06:32→16:30)
--- NOTE | 2022-06-06 08:00 | NUR ---
RECEIVED PATIENT IN BED, ASLEEP, NOT IN ANY FORM OF DISTRESS, REFUSED TO BE ASSESSED, STATES HE IS SLEEPING AND DOES NOT WANT TO BE BOTHERED, LEFT HIP SURGICAL INCISION DRESSING CLEAN, DRY AND INTACT WITH KAMRON DRAIN IN PLACE DRAINING WELL, CONDOM CATHETER INPLACE DRAINING DARK SUBHA URINE, DENIES ANY PAIN OR DISCOMFORT AT THIS TIME, PATIENT IS NPO FOR NARCISO PROCEDURE TODAY.
[2022-06-06] MEDS: DOCUSATE SODIUM 100 MG GELCAP PO SCH ×2 (08:39→21:00)
[2022-06-06] MEDS: ASCORBIC ACID 500 MG TAB PO SCH ×2 (08:39→21:00)
[2022-06-06 09:19] LABS: BASOPHILS % (AUTO) 0.4 % (0.0-2.0); EOSINOPHILS # (AUTO) 0.1 K/uL (0-0.4); EOSINOPHILS % (AUTO) 0.9 % (0.0-4.0); HEMATOCRIT 26.9 % (36-52); HEMOGLOBIN 8.8 g/dL (12.0-18.0); LYMPHOCYTES # (AUTO) 2.3 K/uL (2.0-11.5); LYMPHOCYTES % (AUTO) 18.9 % (20.5-51.1); MEAN CORPUSCULAR HEMOGLOBIN 27 pg (27-31); MEAN CORPUSCULAR HGB CONC 33 g/dL (33-37); MEAN CORPUSCULAR VOLUME 83.7 fL (80-94); MONOCYTES # (AUTO) 1.1 K/uL (0.8-1.0); MONOCYTES % (AUTO) 8.9 % (1.7-9.3); NEUTROPHILS # (AUTO) 8.7 K/uL (1.8-7.7); NEUTROPHILS % (AUTO) 70.9 % (42.2-75.2); PLATELET COUNT (AUTO) 165 K/uL (140-450); RED BLOOD CELL COUNT(AUTO) 3.21 MIL/uL (4.20-6.10); RED CELL DISTRIBUTION WIDTH 15.5 % (11.6-13.7); WHITE BLOOD COUNT (AUTO) 12.2 K/uL (4.8-10.8)
[2022-06-06] MEDS: VANCOMYCIN 1,000 MG in DEXTROSE 5% 250 ML IV SCH (09:26)
[2022-06-06] MEDS: DEXAMETHASONE 4 MG/ML VIAL IVP SCH (09:26)
[2022-06-06 09:34] LABS: ANION GAP 6.4 (8-16); CARBON DIOXIDE 31.2 mmol/L (21-32); CREATININE 0.5 mg/dL (0.6-1.3); POTASSIUM 3.6 mmol/L (3.5-5.1)
[2022-06-06] MEDS ORDERED: BENZOCAINE 20% 57 GM CAN MC ONE (10:10)
[2022-06-06] MEDS ORDERED: NALOXONE 0.4 MG/ML VIAL ONE (10:13)
[2022-06-06] MEDS ORDERED: FLUMAZENIL 0.5 MG/5 ML VIAL IVP ONE (10:13)
[2022-06-06] MEDS ORDERED: fentaNYL citrate 0.05 MG/ML VIAL ONE (10:13)
[2022-06-06] MEDS ORDERED: MIDAZOLAM 2 MG/2 ML VIAL ONE (10:14)
--- NOTE | 2022-06-06 11:44 | NUR ---
ATTEMPT TO ASSESS PT. SKIN AND POST OP I&D. PT NOT AVAILABLE, PT IS WITH BED SIDE NARCISO PROCEDURES. PT IS AT MODERATE RISK SKIN BREAKS AND POC DISCUSSED WITH CHARGE NURSE ZAN. CONTINUE TO FOLLOW SURGEON ORDERS.
--- NOTE | 2022-06-06 12:20 | NUR ---
EMERGENCY ABG: PH 7.54,SAJ725.8,PO2 485.4,HCO2 29.2 BE 6.4, O2 SAT99.9. ABG RESULTS WERE GIVEN TO DR. LONDON.
--- NOTE | 2022-06-06 13:00 | NUR ---
TTE PROCEDURE AT THE BEDSIDE WITH DR. TRIVEDI. TIME OUT WAS DONE. PROCEDURE WAS DONE APPROXIMATELY 1145. PATIENT STARTED DESATING TO 88% AFTER TTE PROCEDURE. RT AT BEDSIDE AND PLACED PATIENT ON NON-REBREATHER THEN HI FLOW NC PATIENT SATURATION REMAINS ON 81-83%.PATIENT STILL RESPONDING AND ABLE TO COMMUNICATE. NOTED BREATHING IS SHALLOW. RAPID RESPONSE WAS CALLED APPROXIMATELY 1217 NARCAN WAS GIVEN @ 1238. AIRCRAFT MOTOR MECHANIC TEAM WAS AT THE BEDSIDE. AWAITING CT SCAN AT THIS TIME.
[2022-06-06] MEDS ORDERED: PROPOFOL 1000 MG/100 ML PREMIX 100 ML IV ONE (13:08)
--- NOTE | 2022-06-06 13:23 | NUR ---
After NARCISO procedure, pt desaturated. Place on non rebreather, than hi-flow bubble NC, and then both. Pt saturation would not rise above 83. Called a Rapid response at 1217. Pt given narcan and treated by doctoer and TREE TRIMMER HELPER team. Still not able to increase O2 above 83. Place Pt on Vapotherm High-Flow per doctor. Initially O2 increased to 87%, then dropped to 81, pt became cyanotic and a second rapid was called at 1307. Pt intubated at 1311 with 8.0 tube, 22 at the teeth. Color change and bilateral breath sounds were heard. Placement confirmed by xray.
--- NOTE | 2022-06-06 13:45 | NUR ---
APPROXIMATELY 1307 2ND RAPID RESPONSE WAS CALLED. PATIENT WAS PLACED ON HI FLOW BY RT PER MD ORDER. STILL O2 SAT REMAINS ON 81%.NOTED PATIENT IS CYANOTIC. @ 1311 PATIENT WAS INTUBATED, OGT PLACED BY PHARMACIST TEAM. PLACEMENT CONFIRMED BY X-RAY. SG=440/67, HR 91, RR=16, O2 SAT 80%, TEMP 97.2. TRANSPORTED PATIENT TO CT BY RT AND PHARMACIST TEAM WITH PRIMARY RN THEN TRANSFERRED TO ICU. REPORT GIVEN TO EAGLE REEVES.
--- NOTE | 2022-06-06 13:47 | NUR ---
PLACED ON A ZimbraAPE R860 VENTILATOR PLUGGED INTO RED OUTLET TOLERATING WELL WITHOUT ADVERSE REACTIONS TO AN ENDOTRACHEAL TUBE #8.0 SECURED 25cm TEETH/GUM LINE WITH AN ANCHOR FAST CUFF PRESSURE CHECKED NOTED AMBU BAG AT BEDSIDE SEDATED GOOD CHEST RISE ENDOTRACHEAL SUCTION FOR LARGE THIN TO FROTHY SECRETIONS SPUTUM SPECIMEN OBTAINED FOR VAP PROTOCOLS SAMPLE FORWARDED TO LAB
[2022-06-06] MEDS ORDERED: hePARIN / DEXT 5% PREMIX 250 ML IV SCH (13:50)
[2022-06-06] MEDS ORDERED: HEPARIN PER PHARMACY MC PRN (13:50)
[2022-06-06] MEDS: PROPOFOL 1000 MG/100 ML PREMIX 100 ML IV PRN ×3 (14:00→21:45)
--- NOTE | 2022-06-06 14:00 | NUR ---
RECEIVED PT FROM [facility] AFTER X-RAY WAS DONE. ADM TO ICU3. PT IS UNDER SEDATED WITH PROPOFOL. HE IS SLEEPING . ETT TO VENT IV SITE .
[2022-06-06] MEDS ORDERED: ALBUTEROL SULFATE/IPRATROPIU 3 ML SOL IH PRN (14:45)
[2022-06-06] MEDS ORDERED: MIDAZOLAM MDV 50 MG in NACL 0.9% 40 ML IV PRN ×2 (15:00→15:15)
[2022-06-06] MEDS: hePARIN / DEXT 5% PREMIX 250 ML IV SCH (15:18)
--- NOTE | 2022-06-06 15:35 | NUR ---
SEDATED RESTING COMFORTABLY GOOD CHEST RISE ENDOTRACHEAL SUCTION FOR LARGE FROTHY THIN SOLIS SECRETIONS AIRWAY PATENT
[2022-06-06] MEDS: MIDAZOLAM MDV 50 MG in NACL 0.9% 40 ML IV PRN (16:00)
--- NOTE | 2022-06-06 16:13 | NUR ---
CALLED DR. KAY NICOLE AT [facility] [phone] TO REVIEW ABG RESULTS; RENETTA/EXCHANGE TO PAGE KATE RIVERS; PATIENT VITAL INFORMATION AND CALL BACK NUMBER GIVEN
--- NOTE | 2022-06-06 16:18 | NUR ---
CALL BACK FROM DR. KAY NICOLE REVIEWED ABG RESULTS, VENTILATOR SETTINGS AND DIAGNOSTIC MONITOR SATURATION; ADVISED FOREMENTIONED THAT THE ABG SAMPLE WAS RAN ON TWO ABG ANALYZERS TO CORRELATE SAMPLE NOTED Addendum: 06/06/22 at 1649 by Jef Pat RT VENTILATOR SETTINGS: AC R16 VT550 P16 100%; (MACHINE ID [id number]) PH 7.488, PCO2 38.1, PO2 504.8, HCO3 28.3, BE 4.7, SATS 99.9%; (MACHINE ID [id number]) PH 7.489, PCO2 36.9, PO2 417.2, HCO3 27.4, BE 4.0, SATS 99.9%
--- NOTE | 2022-06-06 16:20 | NUR ---
06/06/22 RD FOLLOW UP COMPLETED PLEASE REFER TO NUTRITION ASSESSMENT UNDER CARE ACTIVITY FOR ESTIMATED NUTRITIONAL NEEDS. 1. CONTINUE NPO PER MD 2. WHEN/IF MEDICALLY APPROPRIATE, RECOMMEND RESUMING CCHO 60 GM DIET WITH GLUCERNA 1/DAY TOLERATED -PROVIDES 220 KCAL AND 20 GM PROTEIN DAILY 3. CONSIDER NUTRITION SUPPORT OF PT NPO > 3 DAYS - RECOMMEND GLUCERNA 1.2 AT GOAL RATE 75 ML/HR, FWF 125 ML Q4H TOLERATED - PROVIDES 1800 ML TOTAL VOLUME, 2160 KCAL, 108 GM PROTEIN AND 2199 ML FREE WATER DAILY MEETING 100% ESTIMATED KCAL AND PROTEIN NEEDS; ADEQUATE - START TF AT 1O ML/HR INCREASE BY 1O ML Q4H UNTIL GOAL IS REACHED TOLERATED 4. RD TO FOLLOW-UP 2-3 DAYS, HIGH RISK REVIEWED BY LEESA ESPINOSA RD
--- NOTE | 2022-06-06 16:30 | NUR ---
PIC LINE INSERTED BY PICC LINE NURSE JESSEE. CXR DONE AND OK TO USE.
--- NOTE | 2022-06-06 17:14 | NUR ---
VISIT BY THE SISTER AT BEDSIDE,.
--- NOTE | 2022-06-06 19:20 | NUR ---
TRANSFER OF CARE FROM [facility], REPORT RECEIVED FROM EAGLE Vizcarra RN. PATIENT RECEIVED INTUBATED AND SEDATED, DOES NOT APPEAR TO BE IN DISTRESS. PATIENT HAS ETT TO VENT WITH THE CURRENT VENT SETTINGS: AC/PRVC, FIO2 = 100%, VT = 500, RATE = 16, PEEP = 16. PATIENT HAS OG TUBE. DIMINISHED LUNG SOUNDS ON THE RIGHT SECONDARY TO PULMONARY EMBOLI. PATIENT HAS BANDAGE ON ABDOMEN, S/P REMOVAL OF GTUBE. PATIENT HAS BANDAGE ON LEFT HIP SECONDARY TO LEFT HIP SOFT TISSUE IRRIGATION AND DEBRIDEMENT AND LEFT HIP JOINT ARTHROTOMY AND LAVAGE. HAS TWO WOUNDS ON BILATERAL LOWER EXTREMITIES. HAS KAMRON DRAIN WITH DARK RED SEROSANGUINOUS BLOOD. PATIENT HAS BILATERAL SOFT WRIST RESTRAINTS, TO BE RENEWED AT 1900. VITALS AT START OF SHIFT: TEMP = 97.3F, O2 = 90%, R = 16, HR = 97, BP = 92/60. PATIENT HAS CARIN PICC LINE, AND RIGHT HAND 20G PERIPHERAL LINE. PATIENT HAS THE FOLLOWING MEDICATIONS INFUSING: HEPARIN 26458 UNITS AT 1500IU/HR, PROPOFOL 1000MG AT 40MCG/KG/MIN, AND VERSED 50MG AT 2MG/HR. WILL CONTINUE TO MONITOR PATIENT
--- NOTE | 2022-06-06 19:20 | NUR ---
TRANSFER OF CARE FROM DAY SHIFT, REPORT RECEIVED FROM EAGLE Vizcarra RN. PATIENT RECEIVED IN BED, INTUBATED AND SEDATED. FISCHER \S Addendum: 06/07/22 at 0553 by Daija Leblanc RN DISREGARD NOTE
[2022-06-06] MEDS ORDERED: VANCOMYCIN 1,000 MG VIAL ONE (21:19)
[2022-06-06] MEDS ORDERED: WATER STERILE MC ONE (21:29)
[2022-06-06] MEDS: VANCOMYCIN HCL 1.25 GM in DEXTROSE 5% 250 ML IV SCH (21:34)
[2022-06-07] VITALS (34 sets, daily range): BP systolic 82–121; BP diastolic 54–101
[2022-06-07] MEDS: BLOOD GLUCOSE MONITORING 1 DEV DEV FS SCH ×4 (00:53→18:23)
[2022-06-07] MEDS: PROPOFOL 1000 MG/100 ML PREMIX 100 ML IV PRN ×5 (02:09→21:25)
[2022-06-07] MEDS: MIDAZOLAM MDV 50 MG in NACL 0.9% 40 ML IV PRN (05:30)
[2022-06-07 05:51] LABS: BASOPHILS % (AUTO) 0.4 % (0.0-2.0); EOSINOPHILS # (AUTO) 0.1 K/uL (0-0.4); HEMATOCRIT 27.6 % (36-52); HEMOGLOBIN 8.9 g/dL (12.0-18.0); LYMPHOCYTES # (AUTO) 2.7 K/uL (2.0-11.5); LYMPHOCYTES % (AUTO) 23.3 % (20.5-51.1); MEAN CORPUSCULAR HEMOGLOBIN 27 pg (27-31); MEAN CORPUSCULAR HGB CONC 32 g/dL (33-37); MEAN CORPUSCULAR VOLUME 83.6 fL (80-94); MONOCYTES # (AUTO) 0.7 K/uL (0.8-1.0); MONOCYTES % (AUTO) 6.4 % (1.7-9.3); NEUTROPHILS # (AUTO) 7.9 K/uL (1.8-7.7); NEUTROPHILS % (AUTO) 68.9 % (42.2-75.2); PLATELET COUNT (AUTO) 198 K/uL (140-450); WHITE BLOOD COUNT (AUTO) 11.5 K/uL (4.8-10.8)
[2022-06-07 05:56] LABS: ANION GAP 9.5 (8-16); CARBON DIOXIDE 30.1 mmol/L (21-32); CREATININE 0.6 mg/dL (0.6-1.3); POTASSIUM 3.6 mmol/L (3.5-5.1)
[2022-06-07 06:12] LABS: MAGNESIUM 1.8 mg/dL (1.8-2.4); PHOSPHORUS 3.3 mg/dL (2.5-4.9)
--- NOTE | 2022-06-07 06:45 | NUR ---
RECEIVED PT ON PRVC 550,F16,+16, 100%. TITRATED FIO2 TO 90%. SATURATION 99%. VENT WHEELS ARE LOCKED, PLUGGED INTO RED OUTLET, AMBUBAG AT BEDSIDE, ALARMS ARE SET AND AUDIBLE. CLEAR BREATH SOUNDS, BUT DECREASED BS HEARD ON THE RIGHT SIDE. WILL CONTINUE TO MONITOR.
--- NOTE | 2022-06-07 06:49 | NUR ---
LAB AT BEDSIDE FOR STAT PT/PTT/INR
--- NOTE | 2022-06-07 07:25 | NUR ---
Received pt sedated, ETT to vent settings AC PRVC TV 550 rate 16 PEEP 16 FiO2@90%. Sinus rhythm on monitor. OG-tube intact and clamped. Chahal catheter intact and draining to gravity. KAMRON drain on left hip intact and draining reddish color output. PICC line on right upper arm intact and infusing Propofol@40mcg/kg/min, Heparin @1800 units/hr, and NS@TKO. Peripheral IV on right hand 20 gauge intact and infusing Versed @2mg/hr. Bilat soft wrist restraints in place with no signs of injury. Safety precautions in place.
--- NOTE | 2022-06-07 07:25 | NUR ---
TRANSFER OF CARE TO [facility], REPORT ENDORSED TO LALA NICOLAS
[2022-06-07 07:27] LABS: PROTHROMBIN TIME 10.6 secs (10.8-13.4)
[2022-06-07] MEDS: hePARIN / DEXT 5% PREMIX 250 ML IV SCH (07:37)
[2022-06-07] MEDS: DEXAMETHASONE 4 MG/ML VIAL IVP SCH (08:05)
[2022-06-07] MEDS: ASCORBIC ACID 500 MG TAB PO SCH ×2 (08:05→20:08)
[2022-06-07] MEDS: DOCUSATE 100 MG/10 ML UDC GT SCH ×2 (08:05→20:08)
--- NOTE | 2022-06-07 08:25 | NUR ---
Received report from Daija that Heparin drip was titrated from 1500 units/hr to 1800 units/hr based on yesterday's PTT results at 14:14. IV spreadsheet did not show time of change of rate. At 0700 received pt on heparin 1800 units/hr. Symone, pharmacist called regarding heparin drip rate. Per pharmacist Symone, keep rate at 1500 units/hr and wait for 1300 PTT results for titration.
[2022-06-07] MEDS: VANCOMYCIN HCL 1.25 GM in DEXTROSE 5% 250 ML IV SCH ×2 (09:26→20:09)
--- NOTE | 2022-06-07 10:15 | NUR ---
Dr. Rodriguez at bedside examining patient. No new orders.
--- NOTE | 2022-06-07 11:00 | NUR ---
Seen and examined by Dr. Kaplan. New order for tube feeding. Dr. Kaplan decreased FiO2 to 70% and goal is to decrease down to 60%. RT Pau at bedside and made aware.
[2022-06-07] MEDS: INSULIN LISPRO SLIDING SCALE 100 UNITS/ML VIAL SUBQ PRN (11:32)
--- NOTE | 2022-06-07 12:05 | NUR ---
Sister [place] at bedside. All questions answered.
[2022-06-07 13:40] LABS: PROTHROMBIN TIME 10.6 secs (10.8-13.4)
--- NOTE | 2022-06-07 15:10 | NUR ---
Seen and examined by Dr. Yanez.
--- NOTE | 2022-06-07 17:00 | NUR ---
Called lab regarding pending results for PTT and machine is down at this time. Will continue to check on lab for results.
--- NOTE | 2022-06-07 18:00 | NUR ---
PTT resulted on system. Titrated heparin drip per protocol. Next PTT level to be drawn at 0000 on 06/08/22 instead of 1900 due to late results.
[2022-06-07 18:12] LABS: PROTHROMBIN TIME 10.4 secs (10.8-13.4)
--- NOTE | 2022-06-07 19:09 | NUR ---
Endorsed to can sliderprecious Choe for continuity of care.
--- NOTE | 2022-06-07 19:36 | NUR ---
TRANSFER OF CARE FROM [facility], REPORT RECEIVED FROM MARIA ISABEL Hodges RN. PATIENT RECEIVED INTUBATED AND SEDATED, DOES NOT APPEAR TO BE IN DISTRESS. PATIENT HAS ETT TO VENT WITH THE CURRENT VENT SETTINGS: AC/PRVC, FIO2 = 60%, VT = 550, RATE = 16, PEEP = 14. PATIENT HAS OG TUBE AND IS RECEIVING ENTERAL NUTRITION, CURRENTLY RECEIVING VITAL AF 1.2 AT 20ML/H WITH FREE H20 FLUSH AT 50ML Q4H. GOAL RATE FOR FEEDING IS 35ML/HR. DIMINISHED LUNG SOUNDS ON THE RIGHT SECONDARY TO PULMONARY EMBOLI. PATIENT HAS BANDAGE ON ABDOMEN, S/P REMOVAL OF GTUBE. PATIENT HAS BANDAGE ON LEFT HIP SECONDARY TO LEFT HIP SOFT TISSUE IRRIGATION AND DEBRIDEMENT AND LEFT HIP JOINT ARTHROTOMY AND LAVAGE. HAS TWO WOUNDS ON BILATERAL LOWER EXTREMITIES. HAS KAMRON DRAIN WITH DARK RED SEROSANGUINOUS BLOOD. PATIENT HAS BILATERAL SOFT WRIST RESTRAINTS, TO BE RENEWED AT 1900. VITALS AT START OF SHIFT: TEMP = 97.1F, O2 = 98%, R = 16, HR = 69, BP = 113/80. PATIENT HAS CARIN PICC LINE, AND RIGHT HAND 20G PERIPHERAL LINE. PATIENT HAS THE FOLLOWING MEDICATIONS INFUSING: HEPARIN 85753 UNITS AT 1650IU/HR, PROPOFOL 1000MG AT 20MCG/KG/MIN, AND VERSED 50MG AT 2MG/HR. PATIENT IS DUE FOR REPEAT PTT AT 0000, WILL CONTINUE TO MONITOR PATIENT AND ADJUST HEPARIN DRIP ACCORDINGLY.
--- NOTE | 2022-06-07 20:22 | NUR ---
RT AT BEDSIDE
--- NOTE | 2022-06-07 23:00 | NUR ---
APPROX 23:00 TITRATED PEEP TO 12 PT TOLERATED WELL W/ SPO2 100% 15 MIN POST TITRATION PEEP TITRATED ONCE MORE TO 10 W/ SPO2 REMAINING 100% 15 MIN POST TITRATION WILL CONTINUE TO MONITOR
[2022-06-08] VITALS (33 sets, daily range): BP systolic 91–132; BP diastolic 54–79
--- NOTE | 2022-06-08 00:25 | NUR ---
LAB AT BEDSIDE FOR MIDNIGHT PTT DRAW
[2022-06-08] MEDS: BLOOD GLUCOSE MONITORING 1 DEV DEV FS SCH ×5 (00:48→23:29)
[2022-06-08] MEDS: hePARIN / DEXT 5% PREMIX 250 ML IV SCH ×2 (00:59→15:12)
--- NOTE | 2022-06-08 01:02 | NUR ---
CALL FROM LAB, SPOKE WITH DAYAN, PTT = 62.2. PER EMAR, NO CHANGE IN PIVOT END POLISHER
--- NOTE | 2022-06-08 01:06 | NUR ---
NEW ORDER CREATED FOR LABS AT 0700, STAT PTT
--- NOTE | 2022-06-08 01:50 | NUR ---
PT REMAINS W/ SPO2 100% AND PEEP TITRATED TO 8 W/ SPO2 100% 15 MIN POST TITRATION WILL CONTINUE TO MONITOR
[2022-06-08 04:50] LABS: BASOPHILS % (AUTO) 0.4 % (0.0-2.0); EOSINOPHILS # (AUTO) 0.2 K/uL (0-0.4); HEMOGLOBIN 8.6 g/dL (12.0-18.0); LYMPHOCYTES # (AUTO) 2.1 K/uL (2.0-11.5); LYMPHOCYTES % (AUTO) 18.9 % (20.5-51.1); MEAN CORPUSCULAR HEMOGLOBIN 28 pg (27-31); MEAN CORPUSCULAR HGB CONC 33 g/dL (33-37); MEAN CORPUSCULAR VOLUME 83.7 fL (80-94); MONOCYTES # (AUTO) 0.8 K/uL (0.8-1.0); MONOCYTES % (AUTO) 7.8 % (1.7-9.3); NEUTROPHILS # (AUTO) 7.7 K/uL (1.8-7.7); NEUTROPHILS % (AUTO) 70.9 % (42.2-75.2); PLATELET COUNT (AUTO) 206 K/uL (140-450); RED BLOOD CELL COUNT(AUTO) 3.11 MIL/uL (4.20-6.10); WHITE BLOOD COUNT (AUTO) 10.9 K/uL (4.8-10.8)
--- NOTE | 2022-06-08 05:20 | NUR ---
PT CONTINUES TO TOLERATE CURRENT PEEP (8) WELL WILL CONTINUE TO MONITOR
[2022-06-08] MEDS: PROPOFOL 1000 MG/100 ML PREMIX 100 ML IV PRN ×3 (05:32→23:48)
[2022-06-08 06:22] LABS: CREATININE 0.5 mg/dL (0.6-1.3)
[2022-06-08 06:29] LABS: MAGNESIUM 1.9 mg/dL (1.8-2.4); PHOSPHORUS 2.5 mg/dL (2.5-4.9)
[2022-06-08] MEDS: KCL 20 MEQ/WATER INJ PREMIX 200 ML IV ONE ×2 (06:48→07:41)
--- NOTE | 2022-06-08 07:15 | NUR ---
RECEIVED BEDSIDE REPORT FROM NIGHT ADORE PATTERSON RN. PT SEDATED. RTT TO VENT, AC PRVC FIO2 60%, VT 550, RATE 16, PEEP 5. SR ON MONITOR. OGT TO TUBE FEEDING, VITAL, RUNNING AT 35 MLS/H, FWF 50 ML Q4H. PICC LINE TO CARIN, RUNNING PROPOFOL@ 25 MCG/KG/MIN, VERSED @ 2 MG/H, HEPARIN @ 1650 UNIT/H, POTASSIUM @ 50MLS/H. BILAT SOFT WRIST RESTRAINT IN PLACE, NO S/S OF INJURY NOTED. RAMÍREZ IN PLACE TO GRAVITY. KAMRON DRAIN TO LEFT HIP, INTACT AND DRAINING REDDISH OUTPUT. HOB ELEVATED, BED TO LOWEST POSITION, WILL CONTINUE TO MONITOR.
--- NOTE | 2022-06-08 07:18 | NUR ---
TRANSFER OF CARE TO [facility], REPORT ENDORSED TO Zackery MEDINA RN.
[2022-06-08] MEDS ORDERED: KCL 20 MEQ/WATER INJ PREMIX 200 ML IV SCH (07:30)
[2022-06-08 08:25] LABS: PROTHROMBIN TIME 10.4 secs (10.8-13.4)
[2022-06-08] MEDS: DOCUSATE 100 MG/10 ML UDC GT SCH ×2 (08:27→20:50)
[2022-06-08] MEDS: DEXAMETHASONE 4 MG/ML VIAL IVP SCH (08:28)
[2022-06-08] MEDS: ASCORBIC ACID 500 MG TAB PO SCH ×2 (08:28→20:50)
[2022-06-08] MEDS: MIDAZOLAM MDV 50 MG in NACL 0.9% 40 ML IV PRN (09:25)
[2022-06-08] MEDS: INSULIN LISPRO SLIDING SCALE 100 UNITS/ML VIAL SUBQ PRN (11:47)
--- NOTE | 2022-06-08 16:25 | NUR ---
DR ALLEN ROUNDING AT BEDSIDE. UPDATED PT INFORMATION.
--- NOTE | 2022-06-08 19:12 | NUR ---
ENDORSED TO TURPENTINE FARMER YAMILE REEVES FOR CONTINUITY OF CARE. ALL QUESTION ANSWERED.
[2022-06-09] VITALS (29 sets, daily range): BP systolic 90–115; BP diastolic 55–77
--- NOTE | 2022-06-09 00:08 | NUR ---
PATIENT STABLE VITALS SIGNS IN NORMAL LIMITS NOT COMPLAINING OF PAIN AT THIS TIME
--- NOTE | 2022-06-09 02:59 | NUR ---
PATIENT STABLE VITALS SIGNS IN NORMAL LIMITS NOT COMPLAINING OF PAIN ORAL CRE DONE ALONG WITH COMPLETED BATH
[2022-06-09] MEDS: BLOOD GLUCOSE MONITORING 1 DEV DEV FS SCH ×3 (06:19→17:43)
--- NOTE | 2022-06-09 06:40 | NUR ---
PATIENT STABLE NOT COMPLAINING OF PAIN DELORES;S SIGNS IN NORMAL LIMITS SR 89 ON MONITOR
[2022-06-09] MEDS: hePARIN / DEXT 5% PREMIX 250 ML IV SCH ×2 (06:59→21:49)
[2022-06-09] MEDS: PROPOFOL 1000 MG/100 ML PREMIX 100 ML IV PRN ×2 (07:02→18:05)
--- NOTE | 2022-06-09 07:15 | NUR ---
RECEIVED BEDSIDE REPORT FROM NIGHT ADORE BOWEN RN. PT SEDATED. RTT TO VENT, AC PRVC FIO2 35%, VT 550, RATE 16, PEEP 5. SR ON MONITOR. OGT TO TUBE FEEDING, VITAL, RUNNING AT 35 MLS/H, FWF 50 ML Q4H. PICC LINE TO CARIN, RUNNING PROPOFOL@ 20 MCG/KG/MIN, VERSED @ 2 MG/H, HEPARIN @ 1650 UNIT/H, NS TKO @ 3MLS/H. BILAT SOFT WRIST RESTRAINT IN PLACE, NO S/S OF INJURY NOTED. RAMÍREZ IN PLACE TO GRAVITY. KAMRON DRAIN TO LEFT HIP, INTACT AND DRAINING REDDISH OUTPUT. HOB ELEVATED, BED TO LOWEST POSITION, WILL CONTINUE TO MONITOR. Addendum: 06/09/22 at 0821 by Krunal Euceda RN RECEIVED REPORT FROM WELDER PIPE MAKING YAMILE REEVES
--- NOTE | 2022-06-09 07:38 | NUR ---
RECEIVED ON A [employer]APE R860 VENTILATOR PLUGGED INTO RED OUTLET TOLERATING WELL WITHOUT ADVERSE REACTIONS NOTED TO AN ENDOTRACHEAL TUBE #8.0 SECURED AT 25cm TEETH/GUM LINE WITH AN ANCHOR FAST CUFF PRESSURE CHECKED NOTED AMBU BAG AT BEDSIDE RESTING WELL EQUAL CHEST RISE ENDOTRACHEAL SUCTION FOR MODERATE THIN YELLOW SECRETIONS AIRWAY PATENT SATURATION 100% ON FIO2 OF 35% PEEP 5cmH2O POST HHN THERAPY TITRATED FIO2 TO 30% YANGINI/RN NOTIFIED
[2022-06-09 07:39] LABS: HEMATOCRIT 24.4 % (36-52); HEMOGLOBIN 8.2 g/dL (12.0-18.0); MEAN CORPUSCULAR HEMOGLOBIN 29 pg (27-31); MEAN CORPUSCULAR HGB CONC 34 g/dL (33-37); PLATELET COUNT (AUTO) 175 K/uL (140-450); RED BLOOD CELL COUNT(AUTO) 2.87 MIL/uL (4.20-6.10); RED CELL DISTRIBUTION WIDTH 16.6 % (11.6-13.7)
[2022-06-09 07:54] LABS: ANION GAP 8.4 (8-16); CARBON DIOXIDE 29.9 mmol/L (21-32); CREATININE 0.5 mg/dL (0.6-1.3); POTASSIUM 3.3 mmol/L (3.5-5.1)
[2022-06-09 08:08] LABS: EOSINOPHILS % (MANUAL) 1 % (0-4); LYMPHOCYTES % (MANUAL) 10 % (20-46); MONOCYTES % (MANUAL) 5 % (5-12)
[2022-06-09 08:11] LABS: MAGNESIUM 1.7 mg/dL (1.8-2.4); PHOSPHORUS 2.7 mg/dL (2.5-4.9)
--- NOTE | 2022-06-09 08:38 | NUR ---
APTT 40.9. HEPARIN BOLUS 3400 UNIT GIVEN. TITRATE HEPARIN DRIP TO 1800 UNIT/H. NEXT APTT SCHEDULED ON 06-09-22 1300.
[2022-06-09] MEDS: DOCUSATE 100 MG/10 ML UDC GT SCH ×2 (08:45→21:00)
[2022-06-09] MEDS: ASCORBIC ACID 500 MG TAB PO SCH ×2 (08:45→21:00)
[2022-06-09] MEDS: VANCOMYCIN 1,000 MG in DEXTROSE 5% 250 ML IV SCH ×2 (08:45→21:00)
[2022-06-09] MEDS: DEXAMETHASONE 4 MG/ML VIAL IVP SCH (08:45)
[2022-06-09] MEDS: ACETAMINOPHEN 325 MG TAB PO PRN (08:46)
--- NOTE | 2022-06-09 08:55 | NUR ---
DR OVERTON ROUNDING AT BEDSIDE. UPDATED PT INFORMATION.
[2022-06-09] MEDS ORDERED: POTASSIUM CHLORIDE 20% 40 MEQ/15 ML UDC GT SCH (08:59)
--- NOTE | 2022-06-09 10:30 | NUR ---
SEDATED RESTING WELL WITHOUT APPARENT DISTRESS NOTED GOOD CHEST RISE ENDOTRACHEAL SUCTION FOR SMAL THIN YELLOW SECRETIONS AIRWAY PATENT Addendum: 06/09/22 at 1152 by Jef Pat RT SATURATION 100% ON FIO2 OF 30% PEEP 5cmH2O TITRATED FIO2 TO 28% CYDNEY NOTIFIED
[2022-06-09] MEDS ORDERED: ROCURONIUM 50 MG/5 ML VIAL IV ONE (12:00)
[2022-06-09] MEDS ORDERED: ETOMIDATE 20 MG/10 ML VIAL IVP ONE (12:00)
--- NOTE | 2022-06-09 12:07 | NUR ---
WOUND CARE NOTE: SKIN ASSESSMENT DONE WITH PT'S PERMISSION , PT. WITH GOOD EYE CONTACT AND GOOD HAND SHAKE/AUDIO TECHNICIAN. ASSESSMENT DONE WITH PRIMARY RN CAROL. POC DISCUSSED. PT. ADMITTED WITH BILATERAL LOWER LEG PAD. PT. WITH LLQ ABD SURGICAL WOUND 6 CM IN LENGTH SUTURES IN PLACE, SECURED NO S/S OF WOUND DEHISCENCE. BETO WOUND SKIN DRY AND CLEAN, KAMRON DRAINS TO LATERAL TRUNK OF BODY, FUNCTIONING.LARGE AMOUNT SANGUINOUS DRAINAGE, NO ODOR, PAIN 2/10. MASD TO LOWER BUTTOCKS SKIN FOLD, SKIN RED AND PEELING. BILATERAL HEELS BLANCHABLE REDNESS, SKIN INTACT. PT. WITH LOW FLORENTIN SCALE AT MODERATE TO HIGH RISK, CONTINUE TO FOLLOW PRESSURE INJURY PREVENTION INTERVENTIONS. -APPLY DRY DRESSING TO LLQ ABD SURGICAL SITE DAILY AND OBSERVE / RECORD KAMRON DRAIN Q SHIFT -APPLY Z GUARD TO MASD BILATERAL LOWER BUTTOCKS SKIN FOLDS BID AND PRN IF SOILING -CLEANSE BILATERAL LOWER LEGS WOUNDS WITH NS, PAT DRY, APPLY ALGINATE DRESSING,COVER WITH DRY DRESSING Q3 DAYS AND PRN IF SOILING -POSITIONING: TURN AND REPOSITION PATIENT Q 2H OR SOONER USE PILLOWS TO KEEP BONY PROMINENCES FROM DIRECT CONTACT WITH SURFACES USE REPOSITIONING WEDGES TO PROVIDE 30-DEGREE ANGLE FOR SIDE LYING POSITIONS OFFLOADING OR FOAM DRESSING TO ALL TUBING TO PREVENT MEDICAL DEVICES RELATED PRESSURE INJURY -RE-EVALUATING AND MANAGING INCONTINENCE MONITOR SKIN CONDITION DURING POSITION CHANGE DO NOT MASSAGE REDNESS, BONY PROMINENCES FREQUENT BETO-CARE AND PROVIDE BARRIER CREAMS PRN IF SOILING MOISTURE CONTROL BY OFFER BED AMBRIZ/URINAL /ABSORBENT PAD TO WICK AND HOLD MOISTURE KEEP SKIN DRY AND PROTECT FROM FRICTION -MANAGE FRICTION/SHEAR/MOBILITY KEEP HOB AT THE LOWEST LEVEL OF ELEVATION NO MORE THAN 30 DEGREE UNLESS OTHERWISE CONTRAINDICATED USE LIFT SHEET OR TRANSFER DEVICE TO MOVE PATIENT AND PREVENT LATERAL SHEER. PROTECT HEELS, ELBOWS BONY PROMINENCES WITH SKIN BERRIES OR FOAM DRESSING IF EXPOSED TO FRICTION OFFLOAD BILATERAL HEELS BY PLACING PILLOWS UNDER CALVES AT ALL TIMES, UNLESS OTHERWISE CONTRAINDICATED -PRESSURE REDISTRIBUTION SURFACE THERAPY JUAN ISOFLEX MATTRESS -NUTRITION: PLEASE FOLLOW RD RECOMMENDATIONS AND OFFER NUTRITION SUPPLEMENTS IF ORDERED. PLEASE CONTACT WOUND CARE NURSE FOR ANY QUESTION AND CHANGE OF WOUND CONDITION.
[2022-06-09] MEDS: INSULIN LISPRO SLIDING SCALE 100 UNITS/ML VIAL SUBQ PRN (13:00)
--- NOTE | 2022-06-09 13:17 | NUR ---
SEDATED RESTING WELL NO PULMONARY DISTRESS NOTED EQUAL CHEST RISE GOOD AERATION THROUGHOUT BILATERAL LUNG WARREN AIRWAY PATENT
--- NOTE | 2022-06-09 14:00 | NUR ---
DR MATTHIEU URRUTIA AT BEDSIDE. UPDATED PT INFORMATION. DR SOMMERS WANT TO KEEP LEVO BELOW 6 MCG/MIN, VERSED 0.5 MG/H AND OFF TOMORROW. Addendum: 06/09/22 at 1716 by Krunal Euceda RN WRONG PATIENT. DR SOMMERS WANT TO KEEP PROPOFOL BELOW 10MCG/KG/MIN. DAILY CPAP TRIAL.
--- NOTE | 2022-06-09 14:15 | NUR ---
ON OR ABOUT THIS TIME DR. ESDRAS SOMMERS PLACED ON CPAP/SBT TRIAL NOTED TOLERATING WELL NO DISTRESS NOTED GOOD CHEST RISE AIRWAY PATENT CAROL/RN AWARE
--- NOTE | 2022-06-09 14:31 | NUR ---
06/09/22 RD FOLLOW UP COMPLETED PLEASE REFER TO NUTRITION ASSESSMENT UNDER CARE ACTIVITY FOR ESTIMATED NUTRITIONAL NEEDS. 1. RECOMMEND INCREASING TF GOAL RATE TO 50 ML/HR, FWF 125 ML Q4H, AND PROSOURCE TID (PROVIDES 45 GM PROTEIN AND 180 KCAL/DAY) TO BETTER MEET ESTIMATED NUTRITIONAL NEEDS. - VITAL AF 1.2 @ 50 ML/HR, FWF 125 ML Q4H, PROPOFOL @ 10.342 ML/HR (PROVIDES 298 KCAL/DAY), AND PROSOURCE TID PROVIDES 1200 ML TOTAL VOLUME, 1620 KCAL, 135 GM PROTEIN AND 1723 ML FREE WATER DAILY MEETING 75% ESTIMATED KCAL NEEDS AND 100% ESTIMATED PROTEIN NEEDS; ADEQUATE - INCREASE TF 1O ML/HR Q4H UNTIL GOAL IS REACHED TOLERATED 2. MONITOR GI SYMPTOMS AND GASTRIC RESIDUALS 3. CONSULT KEYLA SCHUMACHER 4. RD TO FOLLOW-UP 2-3 DAYS, HIGH RISK REVIEWED BY LEESA ESPINOSA RD Addendum: 06/10/22 at [address] 1. RECOMMEND INCREASING VITAL AF 1.2 TO GOAL RATE 75 ML/HR, FWF 125 ML Q4H TOLERATED - PROVIDES 1320 ML TOTAL VOLUME, 1584 KCAL, 99 GM PROTEIN AND 1820 ML FREE WATER DAILY MEETING 100% ESTIMATED KCAL AND PROTEIN NEEDS; ADEQUATE 2. RECOMMEND D/C PROSOURCE TID D/T PT RECEIVING 100% ESTIMATED NEEDS WITH VITAL AF 1.2 @ 75 ML/HR 3. MONITOR GI SYMPTOMS, GASTRIC RESIDUALS AND NUTRITION RELATED LAB VALUES 4. CONSULT KEYLA SCHUMACHER
[2022-06-09] MEDS: MIDAZOLAM MDV 50 MG in NACL 0.9% 40 ML IV PRN (14:39)
[2022-06-09] MEDS: HYDROcodone/APAP 10/325 MG 1 TAB TAB PO PRN (15:26)
--- NOTE | 2022-06-09 16:15 | NUR ---
SIRENA SOMMERS; DAILY SBT/CPAP TRIAL Addendum: 06/09/22 at 1638 by Jef Pat RT ACTUAL TIME 1415; PULMONARY EXERCISE BUILD UP RESERVES
--- NOTE | 2022-06-09 17:03 | NUR ---
DR DUSTIN GATESING TA BEDSIDE. UPDATED PT INFORMATION.
--- NOTE | 2022-06-09 17:35 | NUR ---
SEDATED RESTING COMFORTABLY TOLERATING SBT TRIAL WITHOUT DISTRESS NOTED EQUAL CHEST RISE GOOD AERATION THROUGHOUT BILATERAL LUNG WARREN AIRWAY PATENT
--- NOTE | 2022-06-09 18:12 | NUR ---
DR ALLEN ROUNDING AT BEDSIDE. UPDATED PT INFORMATION.
--- NOTE | 2022-06-09 19:27 | NUR ---
ENDORSED TO COMPOSITE WORKER BRONSON RN FOR CONTINUITY OF CARE. ALL QUESTION ANSWERED.
--- NOTE | 2022-06-09 19:30 | NUR ---
RECEIVED PT. FROM DAY SHIFT RNCAROL. PT. ON ETT TO VENT RATE 16, FIO2 28%, TV 550, PEEP 5 AND 02 SAT 98%. PT. IS WELL SEDATED, BUT OPEN EYES AND MOVES EXTREMITIES IF CALLING HIS NAME OR WITH TACTILE STIMULI OR WHEN REPOSITIONING.BILATERAL LUNG SOUNDS DIMINISHED. EYES PERRLA. IV IS ON THE RIGHT UPPER ARM PICC LINE, INFUSING PROPOFOL DRIP AT 10MCG/KG/MIN, VERSED DRIP 2 MG/HR. IV TO RIGHT HAND 20G INTACT AND RUNNING HEPARIN DRIP AT 1800 U/HR. OGT WITH VITAL AF FEEDING RUNNING 50 ML/HR TOLERATING WELL. ABDOMINAL SOUNDS NOTED HYPOACTIVE. RAMÍREZ CATHETER PATENT AND INTACT, WITH CLEAR LIGHT SUBHA COLOR URINE. KAMRON DRAINAGE DUE TO S/P LEFT HIP IRRIGATION AND DEBRIDEMENT, DRAINING BLOODY FLUID. SITE FROM S/P LEFT HIP, DRY AND NO S/S OF INFECTION WITHIN THE SURROUNDED SKIN. PT. ON BILATERAL SOFT WRIST RESTRAINT FOR SAFETY. BOTH WRIST NO S/S OF POOR CIRCULATION AND NO S/S OF INJURY. BEDLOCK AND BED PLACED TO THE LOWEST LIGHT. PROVIDED SAFE AND QUIET ENVIRONMENT. FREQUENT BEDSIDE CHECK. ABLE TO MAKE NEEDS KNOW. NO S/S OF PAIN NOTED. WILL CONT. TO MONITOR.
--- NOTE | 2022-06-09 19:35 | NUR ---
LAB CALLED AND TALKED TO EAGLE REEVES, REPORTED PTT LEVEL RESULT 64.5. LALA GUILLERMO RELATED THE MESSAGE TO ME. PT. IS ON HEPARIN DRIP 1800 U/HR AND PER PARAMETER NO CHANGE IN HEPARIN DRIP RATE.
[2022-06-10] VITALS (28 sets, daily range): BP systolic 63–120; BP diastolic 55–81
[2022-06-10] MEDS: BLOOD GLUCOSE MONITORING 1 DEV DEV FS SCH ×4 (00:12→17:51)
[2022-06-10] MEDS: Z-GUARD PASTE TP SCH ×2 (01:00→13:33)
--- NOTE | 2022-06-10 04:30 | NUR ---
LAB CAME AND DRAWN BLOOD.
[2022-06-10 05:25] LABS: BASOPHILS # (AUTO) 0.1 K/uL (0.00-0.22); BASOPHILS % (AUTO) 0.5 % (0.0-2.0); EOSINOPHILS # (AUTO) 0.3 K/uL (0-0.4); EOSINOPHILS % (AUTO) 2.7 % (0.0-4.0); HEMATOCRIT 23.7 % (36-52); HEMOGLOBIN 7.7 g/dL (12.0-18.0); LYMPHOCYTES # (AUTO) 2.3 K/uL (2.0-11.5); LYMPHOCYTES % (AUTO) 21.2 % (20.5-51.1); MEAN CORPUSCULAR HEMOGLOBIN 28 pg (27-31); MEAN CORPUSCULAR HGB CONC 32 g/dL (33-37); MEAN CORPUSCULAR VOLUME 85.4 fL (80-94); MONOCYTES # (AUTO) 0.7 K/uL (0.8-1.0); MONOCYTES % (AUTO) 6.3 % (1.7-9.3); NEUTROPHILS # (AUTO) 7.6 K/uL (1.8-7.7); NEUTROPHILS % (AUTO) 69.3 % (42.2-75.2); PLATELET COUNT (AUTO) 176 K/uL (140-450); RED BLOOD CELL COUNT(AUTO) 2.77 MIL/uL (4.20-6.10); RED CELL DISTRIBUTION WIDTH 16.3 % (11.6-13.7); WHITE BLOOD COUNT (AUTO) 10.9 K/uL (4.8-10.8)
[2022-06-10 06:16] LABS: PROTHROMBIN TIME 11.3 secs (10.8-13.4)
[2022-06-10 06:37] LABS: ANION GAP 8.6 (8-16); CREATININE 0.5 mg/dL (0.6-1.3); POTASSIUM 3.6 mmol/L (3.5-5.1)
[2022-06-10 06:47] LABS: PHOSPHORUS 3.5 mg/dL (2.5-4.9)
--- NOTE | 2022-06-10 07:11 | NUR ---
REPORT GIVEN TO CAROL ALLEN FOR CONTINUITY OF CARE.
--- NOTE | 2022-06-10 07:15 | NUR ---
RECEIVED BEDSIDE REPORT FROM CONTROL SPECIALIST BRONSON REEVES. PT SEDATED. RTT TO VENT, AC PRVC FIO2 28%, VT 550, RATE 16, PEEP 5. SR ON MONITOR. OGT TO TUBE FEEDING, VITAL, RUNNING AT 50 MLS/H, FWF 125 ML Q4H. PICC LINE TO CARIN, RUNNING PROPOFOL@ 10 MCG/KG/MIN, VERSED @ 2 MG/H, HEPARIN @ 1800 UNIT/H, NS TKO @ 3MLS/H. BILAT SOFT WRIST RESTRAINT IN PLACE, NO S/S OF INJURY NOTED. RAMÍREZ IN PLACE TO GRAVITY. KAMRON DRAIN TO LEFT HIP, INTACT AND DRAINING REDDISH OUTPUT. HOB ELEVATED, BED TO LOWEST POSITION, WILL CONTINUE TO MONITOR.
[2022-06-10] MEDS: DOCUSATE 100 MG/10 ML UDC GT SCH ×2 (08:40→21:00)
[2022-06-10] MEDS: DEXAMETHASONE 4 MG/ML VIAL IVP SCH (08:40)
[2022-06-10] MEDS: ASCORBIC ACID 500 MG TAB PO SCH ×2 (08:40→21:00)
[2022-06-10] MEDS: VANCOMYCIN 1,000 MG in DEXTROSE 5% 250 ML IV SCH ×2 (08:41→21:10)
--- NOTE | 2022-06-10 09:15 | NUR ---
DR OVERTON ROUNDING AT BEDSIDE. UPDATED PT INFORMATION.
[2022-06-10] MEDS: PROPOFOL 1000 MG/100 ML PREMIX 100 ML IV PRN (09:33)
[2022-06-10] MEDS: INSULIN LISPRO SLIDING SCALE 100 UNITS/ML VIAL SUBQ PRN (11:48)
--- NOTE | 2022-06-10 13:23 | NUR ---
PT PLACED ON SBT CPAP 5 PS 8 AND FIO2 28%. NURSE AWARE. ALARMS ON AND FUNCTIONING. WILL CONTINUE TO MONITOR.
[2022-06-10] MEDS: GAUZE TP SCH (13:33)
--- NOTE | 2022-06-10 13:43 | NUR ---
DR MATTHIEU URRUTIA AT BEDSIDE, UPDATED PT INFORMATION.
[2022-06-10] MEDS: hePARIN / DEXT 5% PREMIX 250 ML IV SCH (13:50)
--- NOTE | 2022-06-10 14:16 | NUR ---
PHYSICAL THERAPY NOTE: PATIENT HAD CHANGE IN CONDITION AND IS NOW INTUBATED ICU STATUS. NEW ORDER NEEDED WHEN PATIENT IS APPROPRIATE.
--- NOTE | 2022-06-10 15:18 | NUR ---
PT EXTUBATED BY RT PER DR SOMMERS ORDER. PT ON NC 3L, TOLERATE WELL, NO S/S OF ACUTE RESPIRATORY DISTRESS. PT SISTER/ CHARLIE LOPEZ CALLED, UPDATED PT INFORMATION.
--- NOTE | 2022-06-10 15:18 | NUR ---
PT EXTUBATED PER AND PLACED ON 3L NC . PT ABLE TO OPEN EYES AND FOLLOW COMMANDS. NURSE BEDSIDE AND AWARE OF PT STATUS. WILL CONTINUE TO MONITOR.
[2022-06-10] MEDS: HYDROcodone/APAP 10/325 MG 1 TAB TAB PO PRN (17:38)
--- NOTE | 2022-06-10 18:36 | NUR ---
DR WILLIAM URRUTIA AT BEDSIDE. UPDATED PT INFORMATION.
--- NOTE | 2022-06-10 19:00 | NUR ---
DR ALLEN ROUNDING AT BEDSIDE. UPDATED PT INFORMATION.
--- NOTE | 2022-06-10 19:12 | NUR ---
RECEIVED REPORT FROM DAILY RUBALCAVA RN FOR CONTINUITY OF CARE FOR THIS PATIENT IS AWAO X4. HE IS NPO PENDING SWALLOW EVAL IN THE AM. HE STATES HE'S HUNGRY. HE'S ON 3L02 VIA NC. THE RT AT THE BEDSIDE AND HE REDUCED THE 02 T0 2L. PT IS ON A HEPARIN GTT AT 17UNITS HOUR; HIS NEXT PTT IS AT 2343 PM. HIS IV ACCESS IS A CARIN PICC LINE DBL LUMEN. BOTH LUMENS ARE PATENT. PT LUNGS ARE CLEAR TO AUSCULTATION .PT HAS NIKIA ULCER ON THE LOWER EXT. BOTH COVERED WITH DRSG. THE DRSG ARE CLEAN AND DRY. HE HAS GOOD PULES THROUGHOUT. HE DENIES PAIN ARE ANY DISCOMFORT.
--- NOTE | 2022-06-10 19:15 | NUR ---
ENDORSED TO NIGHT CLEANER JESSI RN FOR CONTINUITY OF CARE. ALL QUESTION ANSWERED.
--- NOTE | 2022-06-10 21:21 | NUR ---
PTT AT 2100 WAS 65.6 PER THE LEATHER SPLITTER , NO CHANGE INDICATED PER PROTOCOL.
[2022-06-11] VITALS (10 sets, daily range): BP systolic 107–121; BP diastolic 59–74
[2022-06-11] MEDS: Z-GUARD PASTE TP SCH ×2 (00:02→13:38)
[2022-06-11] MEDS: BLOOD GLUCOSE MONITORING 1 DEV DEV FS SCH ×4 (00:02→16:18)
--- NOTE | 2022-06-11 02:54 | NUR ---
PT REFUSES AM CARE INCLUDING ORAL CARE.
[2022-06-11] MEDS: hePARIN / DEXT 5% PREMIX 250 ML IV SCH (05:10)
[2022-06-11 05:24] LABS: BASOPHILS % (AUTO) 0.3 % (0.0-2.0); EOSINOPHILS # (AUTO) 0.3 K/uL (0-0.4); EOSINOPHILS % (AUTO) 3.1 % (0.0-4.0); HEMATOCRIT 23.5 % (36-52); HEMOGLOBIN 7.7 g/dL (12.0-18.0); LYMPHOCYTES # (AUTO) 1.9 K/uL (2.0-11.5); LYMPHOCYTES % (AUTO) 22.2 % (20.5-51.1); MEAN CORPUSCULAR HEMOGLOBIN 28 pg (27-31); MEAN CORPUSCULAR HGB CONC 33 g/dL (33-37); MEAN CORPUSCULAR VOLUME 85.8 fL (80-94); MONOCYTES # (AUTO) 0.6 K/uL (0.8-1.0); MONOCYTES % (AUTO) 6.6 % (1.7-9.3); NEUTROPHILS # (AUTO) 5.9 K/uL (1.8-7.7); NEUTROPHILS % (AUTO) 67.8 % (42.2-75.2); PLATELET COUNT (AUTO) 166 K/uL (140-450); RED BLOOD CELL COUNT(AUTO) 2.74 MIL/uL (4.20-6.10); RED CELL DISTRIBUTION WIDTH 17.5 % (11.6-13.7); WHITE BLOOD COUNT (AUTO) 8.6 K/uL (4.8-10.8)
[2022-06-11 05:54] LABS: PROTHROMBIN TIME 14.4 secs (10.8-13.4)
[2022-06-11 06:14] LABS: ANION GAP 8.7 (8-16); CARBON DIOXIDE 29.8 mmol/L (21-32); CREATININE 0.6 mg/dL (0.6-1.3); POTASSIUM 3.5 mmol/L (3.5-5.1)
[2022-06-11 06:16] LABS: MAGNESIUM 1.9 mg/dL (1.8-2.4); PHOSPHORUS 3.4 mg/dL (2.5-4.9)
--- NOTE | 2022-06-11 06:21 | NUR ---
PT CONTINUES TO REFUSE AM CARE. HIS BLOOD SUGAR IS MONITORED CLOSELY HE HAS NO FEEDING NORIV FLUID. IT WAS 110 FOR 0600 AND 116 FOR MIDNIGHT.
--- NOTE | 2022-06-11 07:30 | NUR ---
RECEIVED REPORT FROM MINER. PT IN BED WITH HOB ELEVATED. AOX4, ABLE TO MAKE NEEDS KNOWN. NO RESPIRATORY DISTRESS ON 2L O2 NC. WITH C/O L HIP PAIN, WILL MEDICATE WHEN DUE. PENDING SWALLOW EVAL. CARIN PICC RUNNING NS AT TKO AND HEPARIN DRIP 1450U/HR. RAMÍREZ INTACT, DRAINING CLEAR YELLOW URINE. KAMRON DRAIN IN PLACE WITH BLOODY DRAINAGE. REFER TO WOUND ASSESSMENT FOR SKIN.
[2022-06-11] MEDS: ASCORBIC ACID 500 MG TAB PO SCH ×2 (08:21→20:21)
[2022-06-11] MEDS: DOCUSATE 100 MG/10 ML UDC GT SCH ×2 (08:21→20:21)
[2022-06-11] MEDS: DEXAMETHASONE 4 MG/ML VIAL IVP SCH (08:21)
[2022-06-11] MEDS: HYDROcodone/APAP 10/325 MG 1 TAB TAB PO PRN ×2 (08:22→16:50)
--- NOTE | 2022-06-11 09:00 | NUR ---
DUE MEDS GIVEN CRUSHED WITH APPLE SAUCE. PT WAS ABLE TO SWALLOW APPLESAUCE AND THIN LIQUIDS
--- NOTE | 2022-06-11 09:30 | NUR ---
ASSISTED WITH BREAKFAST. TOLERATED MECH SOFT DIET
[2022-06-11] MEDS: INSULIN LISPRO SLIDING SCALE 100 UNITS/ML VIAL SUBQ PRN (12:19)
[2022-06-11] MEDS: GAUZE TP SCH (13:38)
--- NOTE | 2022-06-11 14:50 | NUR ---
WOUND CARE DONE ON BOTH LEGS AND LEFT HIP
--- NOTE | 2022-06-11 15:50 | NUR ---
REPORT GIVEN TO EAGLE REEVES. TRANSFERRED PT TO [facility] RM 125A
--- NOTE | 2022-06-11 16:00 | NUR ---
REPORT RECEIVED FROM ICU NURSE. PT A/O X3. NO SOB OR RESPIRATORY DISTRESS. ON RA. HOB ELEVATED. TELE, SR. MECHANICAL SOFT DIET. HEP DRIP AT 1600 UNIT/HR ON CARIN PICC. IV ON R HAND #20 SL. KAMRON DRAIN VIA DRAINAGE WITH SEROSANGUINOUS DRAIN. PT IS S/P L HIP DEBRIDEMENT. 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 NEEDS ALL MET AT THIS TIME. ALL SAFETY MEASURES IN PLACE.
--- NOTE | 2022-06-11 16:30 | NUR ---
SWALLOW EVAL COMPLETED AT BEDSIDE. ST RECOMMENDS THIN LIQUID/MECHANICAL SOFT DIET.
--- NOTE | 2022-06-11 16:50 | NUR ---
PRN PAIN MED GIVEN. SEE EMAR AND PAIN ASSESSMENT/REASSESSMENT.
--- NOTE | 2022-06-11 19:25 | NUR ---
REPORT GIVEN TO NIGHTSDEFT NURSELUCI FOR CONTINUITY OF CARE.
--- NOTE | 2022-06-11 20:50 | NUR ---
PT TOOK HIS NIGHT MEDICATIONS. PT DENIES OF PAIN, HEADACHE OR DIZZINESS.
--- NOTE | 2022-06-11 21:30 | NUR ---
PT PTT LEVEL = 49.1 AND IS ON THERAPEUTIC LEVEL. NO CHANGE OF HEPARIN DRIP LEVEL, CONTINUE TO GIVE 1600 UNITS/HR.
[2022-06-12] MEDS: BLOOD GLUCOSE MONITORING 1 DEV DEV FS SCH ×4 (00:46→17:51)
--- NOTE | 2022-06-12 00:46 | NUR ---
BLOOD SUGAR CHECKED = 125 = NO INSULIN COVERAGE
[2022-06-12] MEDS: Z-GUARD PASTE TP SCH ×2 (01:18→13:00)
--- NOTE | 2022-06-12 03:00 | NUR ---
PTT AT 0300 = 47.1 IS IN THERAPEUTIC LEVEL, NO CHANGE.
--- NOTE | 2022-06-12 03:01 | NUR ---
DR. BONNIE SIMS INSULIN [place]. Addendum: 06/12/22 at 0805 by Elif Hussein RN DR. BONNIE SIMS INSULIN [place] PER CHARGE NURSE.
[2022-06-12 03:20] LABS: ANION GAP 9.2 (8-16); CARBON DIOXIDE 29.7 mmol/L (21-32); CREATININE 0.7 mg/dL (0.6-1.3); POTASSIUM 3.9 mmol/L (3.5-5.1)
--- NOTE | 2022-06-12 06:15 | NUR ---
PT BLOOD SUGAR = 141 = NO INSULIN COVERAGE
--- NOTE | 2022-06-12 07:38 | NUR ---
RECEIVED PT FROM NIGHT RN, PT IS ON CONTACT ISOLATION FOR MRSA, PT IS AWAKE, ALERT AND ORIENTED, ON ROOM AIR, LYING ON THE BED WITH SIDE RAILS UP AND CALL LIGHT WITHIN REACH, PT HAS A RIGHT UPPER ARM PICC LINE DOUBLE LUMEN, ON SALINE LOCK, PT IS S/P LEFT HIP SURGERY, DRESSING INTACT AND DRY, KAMRON BULB IN PLACE, DRAINING SEROSANGUINEOUS,NO SIGN OF DISTRESS NOTED AND WILL CONTINUE TO MONITOR PT.
[2022-06-12 08:00] VITALS: BP 112/70
[2022-06-12] MEDS: DEXAMETHASONE 4 MG/ML VIAL IVP SCH (09:39)
[2022-06-12] MEDS: DOCUSATE 100 MG/10 ML UDC GT SCH ×3 (09:39→22:26)
[2022-06-12] MEDS: ASCORBIC ACID 500 MG TAB PO SCH ×2 (09:39→22:27)
[2022-06-12] MEDS: VANCOMYCIN 1,000 MG in DEXTROSE 5% 250 ML IV SCH (09:42)
[2022-06-12] MEDS: HYDROcodone/APAP 10/325 MG 1 TAB TAB PO PRN ×2 (09:52→15:25)
--- NOTE | 2022-06-12 10:30 | NUR ---
PT WAS CLEANED AND REPOSITIONED NOW, PT HAD A LARGE BM
--- NOTE | 2022-06-12 11:20 | NUR ---
SPOKE TO DR. NICOLE REGARDING THE PT'S HEPARIN DRIP, AND SAID THAT SHE WILL START THE PT ON XARELTO PO
[2022-06-12] MEDS: RIVAROXABAN 15 MG TAB PO SCH ×2 (11:24→22:27)
[2022-06-12 12:00] VITALS: BP 122/74
[2022-06-12] MEDS: INSULIN LISPRO SLIDING SCALE 100 UNITS/ML VIAL SUBQ PRN (12:20)
[2022-06-12] MEDS: GAUZE TP SCH (13:00)
[2022-06-12] MEDS ORDERED: ALGINATE DRESSING MC SCH (13:00)
--- NOTE | 2022-06-12 15:17 | NUR ---
06/12/22 RD FOLLOW UP COMPLETED PLEASE REFER TO NUTRITION ASSESSMENT UNDER CARE ACTIVITY FOR ESTIMATED NUTRITIONAL NEEDS. 1. RECOMMEND CCHO 60 GM, CARDIAC, MECHANICAL SOFT DIET TOLERATED 2. RECOMMEND GLUCERNA 1/DAY -PROVIDES 220 KCAL AND [address] TO FOLLOW-UP 3-5 DAYS, MODERATE RISK REVIEWED BY LEESA ESPINOSA RD
[2022-06-12 16:00] VITALS: BP 117/81
--- NOTE | 2022-06-12 19:15 | NUR ---
ENDORSED PT TO NIGHT RN FOR CONTINUITY OF CARE, PT IS STABLE AT THIS TIME.
[2022-06-12 20:00] VITALS: BP 112/71
[2022-06-13] VITALS: BP 110/69
[2022-06-13] MEDS: Z-GUARD PASTE TP SCH ×2 (01:00→13:00)
[2022-06-13] MEDS: BLOOD GLUCOSE MONITORING 1 DEV DEV FS SCH ×3 (01:09→17:55)
[2022-06-13] MEDS: VANCOMYCIN 1,000 MG in DEXTROSE 5% 250 ML IV SCH (05:09)
[2022-06-13 05:55] LABS: BASOPHILS # (AUTO) 0.1 K/uL (0.00-0.22); BASOPHILS % (AUTO) 0.4 % (0.0-2.0); EOSINOPHILS # (AUTO) 0.2 K/uL (0-0.4); EOSINOPHILS % (AUTO) 1.5 % (0.0-4.0); HEMATOCRIT 29.1 % (36-52); HEMOGLOBIN 9.2 g/dL (12.0-18.0); LYMPHOCYTES % (AUTO) 15.1 % (20.5-51.1); MEAN CORPUSCULAR HEMOGLOBIN 28 pg (27-31); MEAN CORPUSCULAR HGB CONC 32 g/dL (33-37); MEAN CORPUSCULAR VOLUME 86.7 fL (80-94); MONOCYTES # (AUTO) 1.1 K/uL (0.8-1.0); MONOCYTES % (AUTO) 8.3 % (1.7-9.3); NEUTROPHILS % (AUTO) 74.7 % (42.2-75.2); PLATELET COUNT (AUTO) 178 K/uL (140-450); RED BLOOD CELL COUNT(AUTO) 3.36 MIL/uL (4.20-6.10); RED CELL DISTRIBUTION WIDTH 18.4 % (11.6-13.7); WHITE BLOOD COUNT (AUTO) 13.4 K/uL (4.8-10.8)
[2022-06-13 06:18] LABS: ANION GAP 9.4 (8-16); CARBON DIOXIDE 28.4 mmol/L (21-32); CREATININE 0.7 mg/dL (0.6-1.3); POTASSIUM 3.8 mmol/L (3.5-5.1)
--- NOTE | 2022-06-13 07:30 | NUR ---
RECIVED PATIENT FROM API PRODUCT MANAGER NURSE.ALL SAFETY MEASURES IN PLACE.NO SIGNS OF DISTRESS NOTED.POC DISCUSSED.WILL CONTINUE TO MONITOR.
[2022-06-13 08:00] VITALS: BP 111/74
[2022-06-13] MEDS: ASCORBIC ACID 500 MG TAB PO SCH (09:19)
[2022-06-13] MEDS: DOCUSATE 100 MG/10 ML UDC GT SCH (09:19)
[2022-06-13] MEDS: DEXAMETHASONE 4 MG/ML VIAL IVP SCH (09:19)
[2022-06-13] MEDS: RIVAROXABAN 15 MG TAB PO SCH (09:21)
--- NOTE | 2022-06-13 10:30 | NUR ---
SKIN ASSESSMENT DONE WITH PRIMARY RN MILDRED. BLE DRESSING CHANGED YESTERDAY, DRESSING DCI. LLQ ABD SURGICAL WOUND DCI, NO S/S WOUND DEHISCENCE. KAMRON DRAIN FUNCTION LESS THAN 10ML SANGUINOUS DRAINAGE OBSERVED. SACRALCOCCYX SKIN PINK INTACT.
--- NOTE | 2022-06-13 10:31 | NUR ---
ASSESSED THE WOUND SITES WITH WOUND CARE NURSE,PADMA.APPLIED HYDRAGAURD,PROVIDED PREVENTIVE DRESSING IN THE SACRUM.ASSESSED KAMRON DRAIN AND THE INCISION SITE.WILL CONTINUE TO MONITOR THE DRAINAGE.
[2022-06-13 12:00] VITALS: BP 120/77
[2022-06-13] MEDS: GAUZE TP SCH (13:00)
[2022-06-13] MEDS: INSULIN LISPRO SLIDING SCALE 100 UNITS/ML VIAL SUBQ PRN (14:17)
[2022-06-13 16:00] VITALS: BP 112/73
--- NOTE | 2022-06-13 16:35 | NUR ---
DC PLANNING: [place] [facility] [place]OM 49C # TO GIVE REPORT [phone] ARRANGED TRANSPORT WITH [employer] TIME 6:30PM NOTIFIED [facility] REEVES. MARIBEL TO FOLLOW
--- NOTE | 2022-06-13 19:01 | NUR ---
RECIEVED DISCHARGE ORDERE,DISCHARGING PATIENT TO [facility].ALL DISCHARGE PAPER GIVEN,GIVEN REPORT TO [facility].PICC INLINE PLACED,FOLEWY ON PLACE WHILE DISCHARGING.
== END 2022-06-13 19:15 | DRG 309 ==
LOC: MED 20:51 → MMU 05-22 12:23 → MTU 05-22 12:23 → MIC 06-06 13:39 → MMU 06-11 16:00
PROVIDERS: ADMIT Family Medicine; ATTEND Family Medicine
PROC: 0S9B3ZZ Drainage of Left Hip Joint, Percutaneous Approach (ICD-10-PCS; 2022-06-04)
PROC: 0S993ZZ Drainage of Right Hip Joint, Percutaneous Approach (ICD-10-PCS; 2022-06-04)
PROC: B54CZZA Ultrasonography of Left Lower Extremity Veins, Guidance (ICD-10-PCS; 2022-06-04)
PROC: 0QB30ZZ Excision of Left Pelvic Bone, Open Approach (ICD-10-PCS; 2022-06-04)
PROC: 0S9B0ZZ Drainage of Left Hip Joint, Open Approach (ICD-10-PCS; principal; 2022-06-04 10:00)
PROC: 0T9B70Z Drainage of Bladder with Drainage Device, Via Natural or Artificial Opening (ICD-10-PCS; 2022-06-05)
PROC: 0BH17EZ Insertion of Endotracheal Airway into Trachea, Via Natural or Artificial Opening (ICD-10-PCS; 2022-06-06)
PROC: 5A1945Z Respiratory Ventilation, 24-96 Consecutive Hours (ICD-10-PCS; 2022-06-06)
PROC: 02HV33Z Insertion of Infusion Device into Superior Vena Cava, Percutaneous Approach (ICD-10-PCS; 2022-06-06)
PROC: B548ZZA Ultrasonography of Superior Vena Cava, Guidance (ICD-10-PCS; 2022-06-06)
DX: M87.9 Osteonecrosis, unspecified (principal); I26.99 Other pulmonary embolism without acute cor pulmonale; A41.02 Sepsis due to Methicillin resistant Staphylococcus aureus; J96.01 Acute respiratory failure with hypoxia; E43 Unspecified severe protein-calorie malnutrition; S73.001A Unspecified subluxation of right hip, initial encounter; I38 Endocarditis, valve unspecified; I11.0 Hypertensive heart disease with heart failure; M00.052 Staphylococcal arthritis, left hip; I50.9 Heart failure, unspecified; S72.052A Unspecified fracture of head of left femur, initial encounter for closed fracture; M00.9 Pyogenic arthritis, unspecified; S73.002A Unspecified subluxation of left hip, initial encounter; M87.051 Idiopathic aseptic necrosis of right femur; M71.0 Abscess of bursa; Z68.27 Body mass index [BMI] 27.0-27.9, adult; Z20.822 Contact with and (suspected) exposure to COVID-19; E11.9 Type 2 diabetes mellitus without complications; B19.20 Unspecified viral hepatitis C without hepatic coma; D64.9 Anemia, unspecified; J44.9 Chronic obstructive pulmonary disease, unspecified; M19.90 Unspecified osteoarthritis, unspecified site; Z87.891 Personal history of nicotine dependence; Z79.899 Other long term (current) drug therapy
CPT/HCPCS: 31500; 36415; 36600; 71045; 71275; 73700; 75989; 76881; 80048; 80053; 80202; 81001; 82803; 82945; 82948; 83605; 83735; 84100; 84157; 85025; 85610; 85651; 85730; 86140; 86886; 86900; 86901; 86920; 87040; 87070; 87075; 87081; 87086; 87186; 87205; 89051; 92526; 93313; 93970; 94002; 94003; 94640; 97163-GP; 99285; J0690; J1100; J1644; J1815; J2001; J2175; J2250; J2270; J2310; J2370; J2405; J2543; J2590; J2704; J3010; J3370; J3475; J3480; J3490; J7060; Q0092; Q9967

== ENCOUNTER 2022-07-07 16:32 | Inpatient (IN) | payer BC ==
[~2022-07-07] VITALS: Ht 172.7 cm; Wt 77.1 kg
[~2022-07-07 16:32] MED LIST changes: +ASCO500T95 PO; -ATOR20TA40 PO; -IBUP-2213 PO; -IV Zosyn IV; -LORA-476 PO; +METH4TAB1 PO; +NUTR887L PO; -PROP20TA29 PO; -QUET25TA PO; +VANC1PLA7 IV; -ZINC100T8 PO; -[UNRECOGNIZED DRUG - CODE] PO; -[UNRECOGNIZED DRUG - CODE] PO
[2022-07-07 17:47] VITALS: BP 130/80
[2022-07-07 18:15] LABS: BASOPHILS # (AUTO) 0.1 K/uL (0.00-0.22); BASOPHILS % (AUTO) 0.6 % (0.0-2.0); EOSINOPHILS # (AUTO) 0.3 K/uL (0-0.4); HEMATOCRIT 40.9 % (36-52); LYMPHOCYTES # (AUTO) 2.1 K/uL (2.0-11.5); LYMPHOCYTES % (AUTO) 24.3 % (20.5-51.1); MEAN CORPUSCULAR HEMOGLOBIN 27 pg (27-31); MEAN CORPUSCULAR HGB CONC 32 g/dL (33-37); MEAN CORPUSCULAR VOLUME 85.4 fL (80-94); MONOCYTES # (AUTO) 0.7 K/uL (0.8-1.0); MONOCYTES % (AUTO) 8.1 % (1.7-9.3); NEUTROPHILS # (AUTO) 5.4 K/uL (1.8-7.7); PLATELET COUNT (AUTO) 146 K/uL (140-450); RED BLOOD CELL COUNT(AUTO) 4.79 MIL/uL (4.20-6.10); RED CELL DISTRIBUTION WIDTH 16.5 % (11.6-13.7); WHITE BLOOD COUNT (AUTO) 8.5 K/uL (4.8-10.8)
[2022-07-07 18:32] LABS: PROTHROMBIN TIME 10.6 secs (10.8-13.4)
[2022-07-07 18:45] LABS: ALBUMIN 3.5 g/dL (3.4-5.0); ANION GAP 10.8 (8-16); CARBON DIOXIDE 26.1 mmol/L (21-32); CREATININE 0.7 mg/dL (0.6-1.3); POTASSIUM 3.9 mmol/L (3.5-5.1); TOTAL BILIRUBIN 0.2 mg/dL (0.0-1.0); VANCOMYCIN,RANDOM 0.3 ug/ml
--- NOTE | 2022-07-07 19:49 | NUR ---
PT TAKEN TO CT
--- NOTE | 2022-07-07 20:06 | NUR ---
PT RETURN FROM CT
--- NOTE | 2022-07-07 20:33 | NUR ---
PER ER PT CAN HAVE SOMETHING TO EAT. PROVIDED PT WITH APPLE JUICE, APPLE SAUCE AND CRACKERS.
[2022-07-07] MEDS ORDERED: HYDROcodone/APAP 5/325 MG 1 TAB TAB PO PRN (20:40)
--- NOTE | 2022-07-07 21:00 | NUR ---
Patient noted to have existing wounds upon arrival to ER. Photos taken of wound and placed in chart. Wound covered with dressing. Physician informed.
--- NOTE | 2022-07-07 22:04 | NUR ---
Patient will be admitted to care of Ale RIVERS. Admited to telemetry. Will go to [id number]. Belongings list completed. Report to Hector REEVES.
[2022-07-07 22:35] VITALS: BP 130/89
--- NOTE | 2022-07-07 22:35 | NUR ---
RECEIVED REPORT FROM ER NURSE MICHAEL FOR CONTINUITY OF CARE. PATIENT IS A&O X4. PATIENT IS ON ROOM AIR, BREATHING IS NORMAL WITH SYMMETRICAL RISE AND FALL OF CHEST. IV IS A DOUBLE LUMEN PICC LINE CARIN, RUNNING NS AT 100. PATIENT IS UNABLE TO AMBULATE, BUT IS AWAKE AND ALERT; LYING IN SEMI-FOWLERS POSITION. BED IS IN LOWEST POSITION, WHEELS LOCKED, CALL LIGHT IN PLACE. WILL CONTINUE TO OBSERVE PATIENT.
[2022-07-07] MEDS: NACL 0.9% 1,000 ML IV SCH (23:55)
[2022-07-08 04:00] VITALS: BP 122/87
--- NOTE | 2022-07-08 05:00 | NUR ---
PATIENT SLEPT THROUGHOUT THE NIGHT. PATIENT HAD VOIDED WITH NO BM. PATIENT WAS CLEANED, AND NEW JESSENIA'S DIAPER WAS APPLIED. THE SMALL BANDAGE ON THE PATIENT'S LEFT HIP HAD DRAINAGE SEEPING THROUGH. BANDAGE WAS CHANGED; ALL OTHER BANDAGES ARE DRY AND INTACT. PATIENT TOLERATED CLEANING WELL. IV IS STILL RUNNING; BREATHING IS NORMAL WITH SYMMETRICAL RISE AND FALL OF CHEST. WILL CONTINUE TO OBSERVE PATIENT.
[2022-07-08 07:06] LABS: BASOPHILS % (AUTO) 0.5 % (0.0-2.0); EOSINOPHILS # (AUTO) 0.2 K/uL (0-0.4); EOSINOPHILS % (AUTO) 3.6 % (0.0-4.0); HEMATOCRIT 39.5 % (36-52); HEMOGLOBIN 12.7 g/dL (12.0-18.0); LYMPHOCYTES # (AUTO) 2.1 K/uL (2.0-11.5); LYMPHOCYTES % (AUTO) 33.1 % (20.5-51.1); MEAN CORPUSCULAR HEMOGLOBIN 27 pg (27-31); MEAN CORPUSCULAR HGB CONC 32 g/dL (33-37); MEAN CORPUSCULAR VOLUME 85.1 fL (80-94); MONOCYTES # (AUTO) 0.6 K/uL (0.8-1.0); MONOCYTES % (AUTO) 8.7 % (1.7-9.3); NEUTROPHILS # (AUTO) 3.5 K/uL (1.8-7.7); NEUTROPHILS % (AUTO) 54.1 % (42.2-75.2); PLATELET COUNT (AUTO) 141 K/uL (140-450); RED BLOOD CELL COUNT(AUTO) 4.64 MIL/uL (4.20-6.10); RED CELL DISTRIBUTION WIDTH 16.5 % (11.6-13.7); WHITE BLOOD COUNT (AUTO) 6.4 K/uL (4.8-10.8)
--- NOTE | 2022-07-08 07:06 | NUR ---
receive the patient from the night shifty rn in rm 116 aox4 with admitting diagnosis of wound dehiscence . will continue to monitor
[2022-07-08 07:17] LABS: ANION GAP 10.9 (8-16); CARBON DIOXIDE 26.8 mmol/L (21-32); CREATININE 0.6 mg/dL (0.6-1.3); POTASSIUM 3.7 mmol/L (3.5-5.1)
--- NOTE | 2022-07-08 07:44 | NUR ---
ENDORSED TO DAY SHIFT NURSE DIONY FOR CONTINUITY OF CARE. PATIENT IS STABLE.
[2022-07-08 08:00] VITALS: BP 122/89
--- NOTE | 2022-07-08 09:16 | NUR ---
PATIENT HAS BEEN SCREENED AND CATEGORIZED MODERATE NUTRITION RISK. PATIENT WILL BE SEEN WITHIN 3-5 DAYS OF ADMISSION. REVIEWED BY LEESA ESPINOSA RD
[2022-07-08] MEDS: cefTRIAXone 2,000 MG in DEXTROSE 5% 100 ML IV SCH (10:15)
[2022-07-08] MEDS: NACL 0.9% 1,000 ML IV SCH ×2 (10:16→12:44)
[2022-07-08] MEDS ORDERED: ONDANSETRON 4 MG/2 ML VIAL IVP PRN (10:35)
[2022-07-08] MEDS ORDERED: ACETAMINOPHEN 325 MG TAB PO PRN (10:35)
[2022-07-08] MEDS ORDERED: POTASSIUM CHLORIDE 10 MEQ TABER PO PRN (10:35)
[2022-07-08] MEDS ORDERED: HYDROcodone/APAP 7.5/325 MG 1 TAB PO PRN (10:35)
[2022-07-08 12:00] VITALS: BP 121/79
[2022-07-08 12:20] LABS: CHOL/HDL RATIO 3.8 (1-4.5); FREE T4 (FREE THYROXINE) 0.94 ng/dL (0.76-1.46); MAGNESIUM 1.7 mg/dL (1.8-2.4); PHOSPHORUS 4.2 mg/dL (2.5-4.9); THYROID STIMULATING HORMONE 5.24 uIU/mL (0.34-3.74)
[2022-07-08 12:37] LABS: PROTHROMBIN TIME 10.6 secs (10.8-13.4)
[2022-07-08] MEDS ORDERED: PROTEIN HYDROLYS PO SCH (13:00)
[2022-07-08] MEDS ORDERED: AMINO ACIDS PO SCH (13:00)
[2022-07-08] MEDS ORDERED: VANCOMYCIN PER PHARMACY MC PRN (14:45)
[2022-07-08] MEDS ORDERED: LACTULOSE 20 GM/30 ML UDC PO ONE (15:05)
[2022-07-08 16:00] VITALS: BP 122/87
[2022-07-08] MEDS: LACTULOSE 20 GM/30 ML UDC PO SCH (17:52)
[2022-07-08] MEDS: VANCOMYCIN 1.25GM PREMIX 250 ML IV SCH (17:52)
--- NOTE | 2022-07-08 18:40 | NUR ---
will endorse to shift engineer rn for continuity of care
[2022-07-08] MEDS: MAG SULF 2000 MG/WATER PREMIX 50 ML IV PRN (18:50)
--- NOTE | 2022-07-08 19:10 | NUR ---
RECEIVED ENDORSEMENT FROM ERNIE RN (REGISTRY), PATIENT WAS STABLE DURING SHIFT REPORT. PATIENT WAS ALERT AND ORIENTED IN BED WATCHING TV. MD CAME BY AND AGREED TO CHANGE HIS DIET TO CLEAR LIQUID AND ADVANCE TOLERATED. NURSING NOTED BILATERAL LEG DRESSING INTACT. NO COMPLAINS OF PAIN/DISCOMFORT. NO COMPLAINS OF RESPIRATORY DISTRESS. CALL LIGHT WITHIN REACH SIDE RAILS UP X 2 FOR COMFORT AND SAFETY. [email or web address]
[2022-07-08 20:00] VITALS: BP 132/89
[2022-07-08] MEDS: ASCORBIC ACID 500 MG TAB PO SCH (20:32)
[2022-07-08] MEDS: METOPROLOL 25 MG TAB PO SCH (20:32)
[2022-07-08] MEDS: DOCUSATE SODIUM 100 MG GELCAP PO SCH (20:32)
[2022-07-08] MEDS ORDERED: DOCUSATE SODIUM 100 MG GELCAP PO SCH (21:00)
[2022-07-09] VITALS: BP 126/81
--- NOTE | 2022-07-09 01:00 | NUR ---
NURSING NOTED PATIENT IN BED RESTING WITH HEAD OF BED ELEVATED. CALL LIGHT WITHIN REACH. [email or web address]
--- NOTE | 2022-07-09 03:15 | NUR ---
PATIENT WAS IN THE BED ASLEEP WITHOUT PAIN/DISCOMFORT. NO RESPIRATORY DISTRESS. [email or web address]
[2022-07-09 04:00] VITALS: BP 115/76
--- NOTE | 2022-07-09 05:08 | NUR ---
PATIENT WAS CLEANED FROM URINE AND BOWEL MOVEMENT. PATIENT WAS KEPT CLEAN AND DRY. CALL LIGHT WITHIN REACH. CAR TESTER RAILS UP X 3. [email or web address]
[2022-07-09] MEDS: VANCOMYCIN 1.25GM PREMIX 250 ML IV SCH ×2 (05:10→18:17)
[2022-07-09] MEDS: NACL 0.9% 1,000 ML IV SCH (06:26)
--- NOTE | 2022-07-09 07:02 | NUR ---
receive the patient from the welder 2nd shift rn in rm 116 . aox4 with admitting diagnosis of left hip surgery . will contniue to monitor .
--- NOTE | 2022-07-09 07:09 | NUR ---
ENDORSED PATIENT TO ERNIE RN (REGISTRY) FOR CONTINUITY OF CARE, PATIENT WAS STABLE DURING SHIFT REPORTS. [email or web address]
[2022-07-09 07:30] LABS: BASOPHILS % (AUTO) 0.7 % (0.0-2.0); EOSINOPHILS # (AUTO) 0.2 K/uL (0-0.4); EOSINOPHILS % (AUTO) 3.6 % (0.0-4.0); HEMATOCRIT 39.8 % (36-52); LYMPHOCYTES # (AUTO) 1.8 K/uL (2.0-11.5); LYMPHOCYTES % (AUTO) 28.8 % (20.5-51.1); MEAN CORPUSCULAR HEMOGLOBIN 28 pg (27-31); MEAN CORPUSCULAR HGB CONC 33 g/dL (33-37); MEAN CORPUSCULAR VOLUME 84.6 fL (80-94); MONOCYTES # (AUTO) 0.6 K/uL (0.8-1.0); MONOCYTES % (AUTO) 9.6 % (1.7-9.3); NEUTROPHILS # (AUTO) 3.7 K/uL (1.8-7.7); NEUTROPHILS % (AUTO) 57.3 % (42.2-75.2); PLATELET COUNT (AUTO) 135 K/uL (140-450); RED CELL DISTRIBUTION WIDTH 16.4 % (11.6-13.7); WHITE BLOOD COUNT (AUTO) 6.4 K/uL (4.8-10.8)
[2022-07-09 07:33] LABS: ANION GAP 9.6 (8-16); CARBON DIOXIDE 28.4 mmol/L (21-32); CREATININE 0.6 mg/dL (0.6-1.3)
[2022-07-09 07:50] LABS: PHOSPHORUS 3.8 mg/dL (2.5-4.9)
[2022-07-09 08:00] VITALS: BP 132/85
[2022-07-09] MEDS: ASCORBIC ACID 500 MG TAB PO SCH ×2 (09:26→20:44)
[2022-07-09] MEDS: METOPROLOL 25 MG TAB PO SCH ×2 (09:27→20:43)
[2022-07-09] MEDS: PANTOPRAZOLE 40 MG INJ VIAL IVP SCH (09:27)
[2022-07-09] MEDS: MULTIVITAMIN/MINERALS 1 TAB PO SCH (09:27)
[2022-07-09] MEDS: DOCUSATE SODIUM 100 MG GELCAP PO SCH ×2 (09:27→20:44)
[2022-07-09] MEDS: LACTULOSE 20 GM/30 ML UDC PO SCH (09:28)
--- NOTE | 2022-07-09 10:44 | NUR ---
patient for guided ultrasound drainage of extremity . the radiologist suggested ultrasound of the extremity non vascular . will continue to monitor .
--- NOTE | 2022-07-09 11:30 | NUR ---
DC PLANNING ASSESSMENT COMPLETE PLEASE REFER TO ASSESSMENT FOR ADDITIONAL DETAILS ATTEMPTED TO MEET PT AT BEDSIDE,HOWEVER, PT SLEEPING AND DECLINED TO COMPLETE ASSESSMENT. PT REPORTED NO CHANGE SINCE LAST VISIT. SW OUTREACHED TO [facility] TO INQUIRE ON CHANGES SINCE LAST VISIT. NO CHANGES REPORTED. SPOKE WITH PAMELA WHO REPORTS PT IS IN CARE HOME CARE WITH FACILITY, ADMISSION DATE JUN 18. JESSICA GUERRA, IS PTS RESPONSIBLE LIBERTARIAN/MDM. PT IS REPORTED TO BE PRIMARILY BED BOUND AND UTILIZES WC TOLERATED. PT IS TOTAL CARE AT FACILITY AND CARE IS PROVIDED BY [facility] STAFF. PT IS REPORTED TO BE COMPLIANT WITH CARE AND DOES NOT DISPLAY ANY DISRUPTIVE BX'S. PT IS REPORTED TO BE VERBAL. PT IS NOT REGIONAL CENTER CONNECTED. PT HAS HX OF DIABETES THAT IS WELL MANAGED BY FACILITY. PAMELA REPORTS DC PLAN IS FOR PT TO RETURN TO [facility], ONCE MEDICALLY STABLE. Addendum: 07/10/22 at 0916 by Faustino VICK Amended: Links added.
[2022-07-09 12:00] VITALS: BP 108/75
[2022-07-09 16:00] VITALS: BP 115/81
[2022-07-09] MEDS: cefTRIAXone 2,000 MG in DEXTROSE 5% 100 ML IV SCH (18:16)
--- NOTE | 2022-07-09 18:30 | NUR ---
donald spears to forward the diet to mechanical soft diet
--- NOTE | 2022-07-09 19:01 | NUR ---
will endorse to night worker rn for continuity of care .
--- NOTE | 2022-07-09 19:13 | NUR ---
RECEIVED REPORT FROM LALA KLEIN FOR CONTINUITY OF CARE. PT AWAKE IN BED, WATCHING TV. RESPIRATIONS EVEN AND UNLABORED ON RA. DENIES PAIN. NOTED WOUND ON LEFT HIP, AND BILATERAL LOWER EXTREMITIES. ALL WOUNDS COVERED WITH DRESSING, DRY AND INTACT. CARIN PICC LINE, INFUSING IVF. INITIAL ASSESSMENT DONE. POC DISCUSSED WITH PT AND LALA RADFORD. CALL LIGHT WITHIN REACH. SAFETY PRECAUTIONS IN PLACE.
[2022-07-09 20:00] VITALS: BP 119/81
--- NOTE | 2022-07-09 20:00 | NUR ---
Patient's Plan of Care was discussed and reviewed with FIDENCIO: [email or web address]
--- NOTE | 2022-07-09 20:55 | NUR ---
ADMINISTERED DUE MEDS. PT TOLERATED WELL.
--- NOTE | 2022-07-09 22:13 | NUR ---
PT HAD LARGE BROWN FORMED BM. CLEANED AND CHANGED PT DIAPER WITH ANOTHER NURSE. PT TOLERATED WELL. PT CLEAN AND DRY.
[2022-07-10] MEDS: NACL 0.9% 1,000 ML IV SCH (02:35)
[2022-07-10 03:07] LABS: BASOPHILS # (AUTO) 0.1 K/uL (0.00-0.22); BASOPHILS % (AUTO) 1.2 % (0.0-2.0); EOSINOPHILS # (AUTO) 0.2 K/uL (0-0.4); EOSINOPHILS % (AUTO) 2.5 % (0.0-4.0); HEMOGLOBIN 12.5 g/dL (12.0-18.0); LYMPHOCYTES # (AUTO) 2.2 K/uL (2.0-11.5); LYMPHOCYTES % (AUTO) 27.5 % (20.5-51.1); MEAN CORPUSCULAR HEMOGLOBIN 27 pg (27-31); MEAN CORPUSCULAR HGB CONC 32 g/dL (33-37); MEAN CORPUSCULAR VOLUME 85.4 fL (80-94); MONOCYTES # (AUTO) 0.8 K/uL (0.8-1.0); MONOCYTES % (AUTO) 9.8 % (1.7-9.3); NEUTROPHILS # (AUTO) 4.6 K/uL (1.8-7.7); PLATELET COUNT (AUTO) 150 K/uL (140-450); RED BLOOD CELL COUNT(AUTO) 4.57 MIL/uL (4.20-6.10); RED CELL DISTRIBUTION WIDTH 16.4 % (11.6-13.7); WHITE BLOOD COUNT (AUTO) 7.8 K/uL (4.8-10.8)
[2022-07-10 03:18] LABS: ANION GAP 8.8 (8-16); CARBON DIOXIDE 27.2 mmol/L (21-32); CREATININE 0.8 mg/dL (0.6-1.3)
[2022-07-10 04:00] VITALS: BP 102/69
--- NOTE | 2022-07-10 04:01 | NUR ---
VANCO TROUGH 20.6. VERIFIED WITH ORIN FROM [facility] TO GIVE 4AM VANCOMYCIN. REPORTED TO LALA RADFORD.
[2022-07-10] MEDS: VANCOMYCIN 1.25GM PREMIX 250 ML IV SCH (04:11)
[2022-07-10 04:51] LABS: MAGNESIUM 1.7 mg/dL (1.8-2.4); PHOSPHORUS 3.8 mg/dL (2.5-4.9)
--- NOTE | 2022-07-10 05:50 | NUR ---
DID MORNING CARE. PT TOLERATED WELL. WOUND DRESSING REMAINED DRY AND INTACT.
--- NOTE | 2022-07-10 07:03 | NUR ---
receive the patient from the car shifter rn in rm 116 aox4 admitting diagnosis fo left wound dehiscence . will continue to monitor
--- NOTE | 2022-07-10 07:20 | NUR ---
GAVE BEDSIDE REPORT TO LALA KLEIN FOR CONTINUITY OF CARE. PT IS STABLE.
[2022-07-10 08:00] VITALS: BP 132/85
[2022-07-10] MEDS: ASCORBIC ACID 500 MG TAB PO SCH (08:27)
[2022-07-10] MEDS: METOPROLOL 25 MG TAB PO SCH (08:27)
[2022-07-10] MEDS: DOCUSATE SODIUM 100 MG GELCAP PO SCH (08:27)
[2022-07-10] MEDS: PANTOPRAZOLE 40 MG INJ VIAL IVP SCH (08:27)
[2022-07-10] MEDS: LACTULOSE 20 GM/30 ML UDC PO SCH (08:28)
[2022-07-10] MEDS: MULTIVITAMIN/MINERALS 1 TAB PO SCH (08:30)
[2022-07-10] MEDS: cefTRIAXone 2,000 MG in DEXTROSE 5% 100 ML IV SCH (10:17)
[2022-07-10] MEDS ORDERED: LACT10SO6 PO (11:40)
[2022-07-10 12:00] VITALS: BP 108/75
[2022-07-10] MEDS: MAG SULF 2000 MG/WATER PREMIX 50 ML IV PRN (12:10)
--- NOTE | 2022-07-10 13:52 | NUR ---
BETHANY BOYKIN RECEIVED ORDER FOR PT RETURN BACK TO SNF AND CONTINUE WOUND CARE THERE. [place] [facility] [place] LOC[place] AT [address] [place] [address]. PT WILL BE GOING TO ROOM 49-C UNDER DR BENITEZ. TRANSPORTATION WAS SET UP WITH JUANITO AT [facility] WITH A [id number] HYDRAULIC PILE HAMMER OPERATOR TIME. CHARGE NURSE DIANA AND SISTER JESSICA AWARE OF THE ABOVE INFORMATION.
--- NOTE | 2022-07-10 15:30 | NUR ---
gave report to Bridgette REEVES of [facility] [phone] . made some discharge teaching to the patient .
--- NOTE | 2022-07-10 16:45 | NUR ---
discharge the patient to community extended care in a stable condition . no sign and symptoms of respiratory distress . no complain of pain .
[2022-07-11] MEDS ORDERED: VANCOMYCIN 1,000 MG in DEXTROSE 5% 250 ML IV SCH (04:00)
== END 2022-07-10 17:10 | DRG 813 ==
LOC: MED 16:32 → MTU 20:45
DX: T81.30XA Disruption of wound, unspecified, initial encounter (principal); K76.82 Hepatic encephalopathy; E83.39 Other disorders of phosphorus metabolism; M87.88 Other osteonecrosis, other site; L03.116 Cellulitis of left lower limb; E11.51 Type 2 diabetes mellitus with diabetic peripheral angiopathy without gangrene; M25.40 Effusion, unspecified joint; Y83.8 Other surgical procedures as the cause of abnormal reaction of the patient, or of later complication, without mention of misadventure at the time of the procedure; I11.0 Hypertensive heart disease with heart failure; I50.9 Heart failure, unspecified; J44.9 Chronic obstructive pulmonary disease, unspecified; M16.0 Bilateral primary osteoarthritis of hip; Z20.822 Contact with and (suspected) exposure to COVID-19; Z86.711 Personal history of pulmonary embolism; Z79.01 Long term (current) use of anticoagulants; Z82.49 Family history of ischemic heart disease and other diseases of the circulatory system; Z80.0 Family history of malignant neoplasm of digestive organs; Z80.1 Family history of malignant neoplasm of trachea, bronchus and lung; Y92.89 Other specified places as the place of occurrence of the external cause
CPT/HCPCS: 36415; 72193; 76881; 80048; 80053; 80202; 82140; 82150; 82550; 83036; 83605; 83690; 83735; 83880; 84100; 84134; 84439; 84443; 85025; 85610; 85730; 87040; 87070; 87075; 87081; 87205; 99285; C9113; J0696; J1644; J3370; J3372; J3475; J7060; Q0092

== ENCOUNTER 2022-08-21 17:50 | Inpatient (IN) | payer BC ==
[~2022-08-21] VITALS: Ht 180.3 cm; Wt 99.8 kg
[~2022-08-21 17:50] MED LIST changes: +LACT10SO6 PO; +MEPERIDINE 50 MG/ML SYR ONE; +PROPOFOL 200 MG/20 ML VIAL IV ONE; +SEVOFLURANE 250 ML BTL INH ONE
--- NOTE | 2022-08-21 17:50 | NUR ---
PT. TO BED 9 VIA BLS TRANSFER
[2022-08-21 17:55] VITALS: BP 111/72
--- NOTE | 2022-08-21 18:07 | NUR ---
PT C/O GROIN WOUND, NO PAIN, DISCHARGE X 1 WK. SAFETY MAINTAINED.
[2022-08-21] MEDS ORDERED: cefTRIAXone 1,000 MG in DEXT 5% MINI-BAG PLUS 50 ML IV ONE (18:10)
[2022-08-21] MEDS ORDERED: cefTRIAXone 1,000 MG VIAL ONE (18:32)
[2022-08-21] MEDS: NACL 0.9% 1,000 ML IV SCH ×3 (18:38→19:10)
[2022-08-21 18:46] LABS: BASOPHILS # (AUTO) 0.1 K/uL (0.00-0.22); BASOPHILS % (AUTO) 0.4 % (0.0-2.0); EOSINOPHILS % (AUTO) 0.3 % (0.0-4.0); HEMATOCRIT 39.2 % (36-52); HEMOGLOBIN 12.6 g/dL (12.0-18.0); LYMPHOCYTES # (AUTO) 1.4 K/uL (2.0-11.5); LYMPHOCYTES % (AUTO) 8.7 % (20.5-51.1); MEAN CORPUSCULAR HEMOGLOBIN 26 pg (27-31); MEAN CORPUSCULAR HGB CONC 32 g/dL (33-37); MEAN CORPUSCULAR VOLUME 79.6 fL (80-94); MONOCYTES # (AUTO) 1.5 K/uL (0.8-1.0); MONOCYTES % (AUTO) 9.5 % (1.7-9.3); NEUTROPHILS # (AUTO) 13.1 K/uL (1.8-7.7); NEUTROPHILS % (AUTO) 81.1 % (42.2-75.2); PLATELET COUNT (AUTO) 189 K/uL (140-450); RED BLOOD CELL COUNT(AUTO) 4.92 MIL/uL (4.20-6.10); RED CELL DISTRIBUTION WIDTH 15.2 % (11.6-13.7); WHITE BLOOD COUNT (AUTO) 16.1 K/uL (4.8-10.8)
[2022-08-21 19:09] LABS: ALBUMIN 2.3 g/dL (3.4-5.0); ANION GAP 9.9 (8-16); CARBON DIOXIDE 27.7 mmol/L (21-32); CREATININE 0.8 mg/dL (0.6-1.3); POTASSIUM 3.6 mmol/L (3.5-5.1); TOTAL BILIRUBIN 0.4 mg/dL (0.0-1.0)
--- NOTE | 2022-08-21 19:13 | NUR ---
STRAIGHT CATH DONE, UA IN LAB.
[2022-08-21 19:45] LABS: BILIRUBIN,URINE NEGATIVE (NEGATIVE); BLOOD, URINE 3+ (NEGATIVE); COLOR,URINE YELLOW (YELLOW); LEUKOCYTE ESTERASE ,URINE 1+ (NEGATIVE); NITRITE, URINE NEGATIVE (NEGATIVE); UGLUCOSE NEGATIVE (NEGATIVE)
[2022-08-21 19:48] LABS: APPEARANCE,URINE HAZY (CLEAR)
[2022-08-21 20:03] LABS: RBC,URINE 11-20 (MOD) /HPF (0-5)
[2022-08-21] MEDS ORDERED: ONDANSETRON 4 MG/2 ML VIAL IVP PRN (22:25)
[2022-08-21] MEDS ORDERED: LORazepam 2 MG/ML VIAL IVP PRN (22:25)
[2022-08-21] MEDS ORDERED: DOCUSATE SODIUM 100 MG GELCAP PO PRN (22:25)
[2022-08-21] MEDS ORDERED: POTASSIUM CHLORIDE 10 MEQ TABER PO PRN (22:25)
[2022-08-21] MEDS ORDERED: MAG SULF 2000 MG/WATER PREMIX 50 ML IV PRN (22:25)
[2022-08-21] MEDS ORDERED: MORPHINE SULFATE 2 MG/ML SYR IVP PRN (22:25)
[2022-08-21] MEDS ORDERED: ZOLPIDEM 10 MG TAB PO PRN (22:25)
--- NOTE | 2022-08-21 22:48 | NUR ---
PT taken to CT for imaging.
--- NOTE | 2022-08-21 23:02 | NUR ---
Pt returned from CT; Tolerated well.
[2022-08-21] MEDS: ACETAMINOPHEN 325 MG TAB PO PRN (23:16)
--- NOTE | 2022-08-21 23:30 | NUR ---
Patient will be admitted to care of MD Jenkins. Admited to MED SURG. Will go to room 124B. Report given to Radha with opportunity for questions.
--- NOTE | 2022-08-21 23:38 | NUR ---
Pt brought in to ED with no belongings.
--- NOTE | 2022-08-22 00:05 | NUR ---
PT WAS ADMITTED TO [facility] FROM ER THRU [facility] WITH DIAGNOSIS OF UTI. PT IS AOX4, BEDREST, ABLE TO VERBALIZE NEEDS AND ABLE TO FOLLOW COMMANDS. PT IS ON ROOM AIR AND ON REGULAR DIET. PT HAS IV ON LEFT AC GAUGE 20, SALINE LOCK. PT HAS A WOUND ON LEFT GROIN, LEFT AND RIGHT LOWER LEG. PT DENIES PAIN AT THIS TIME. NO S/S OF RESPIRATORY DISTRESS NOTED. PT WAS ORIENTED TO ROOM/HOSPITAL, BED BUTTONS AND CALL LIGHT. ALL SAFETY MEASURES IMPLEMENTED. BED IN LOW POSITION, BED WHEELS ON LOCK AND CALL LIGHT WITHIN REACH.
--- NOTE | 2022-08-22 00:30 | NUR ---
RECEIVED A CALL FROM OUTSIDE RADIOLOGY NAMED [facility] ASKING FOR THE CONTACT NUMBER OF THE ATTENDING PHYSICIAN. CONTACT NUMBER OF DR. ROCHA WAS GIVEN.
--- NOTE | 2022-08-22 02:00 | NUR ---
PT WAS INSERTED CONDOM CATHETER. ALL SAFETY MEASURES IMPLEMENTED. BED IN LOW POSITION, BED WHEELS ON LOCK AND CALL LIGHT WITHIN REACH.
[2022-08-22 04:00] VITALS: BP 112/77
--- NOTE | 2022-08-22 04:00 | NUR ---
PT IS ON SLEEP. CHEST RISE AND FALL SYMMETRICALLY NOTED. RESPIRATION IS EVEN AND UNLABORED. ALL SAFETY MEASURES IMPLEMENTED. BED IN LOW POSITION, BED WHEELS ON LOCK AND CALL LIGHT WITHIN REACH.
[2022-08-22 05:33] LABS: ANION GAP 10.3 (8-16); CARBON DIOXIDE 29.5 mmol/L (21-32); POTASSIUM 3.8 mmol/L (3.5-5.1)
[2022-08-22 05:34] LABS: BASOPHILS % (AUTO) 0.1 % (0.0-2.0); EOSINOPHILS # (AUTO) 0.1 K/uL (0-0.4); EOSINOPHILS % (AUTO) 0.4 % (0.0-4.0); HEMATOCRIT 40.9 % (36-52); HEMOGLOBIN 13.5 g/dL (12.0-18.0); LYMPHOCYTES # (AUTO) 2.3 K/uL (2.0-11.5); LYMPHOCYTES % (AUTO) 15.9 % (20.5-51.1); MEAN CORPUSCULAR HEMOGLOBIN 26 pg (27-31); MEAN CORPUSCULAR HGB CONC 33 g/dL (33-37); MEAN CORPUSCULAR VOLUME 78.9 fL (80-94); MONOCYTES # (AUTO) 1.2 K/uL (0.8-1.0); NEUTROPHILS # (AUTO) 11.1 K/uL (1.8-7.7); NEUTROPHILS % (AUTO) 75.6 % (42.2-75.2); PLATELET COUNT (AUTO) 174 K/uL (140-450); RED BLOOD CELL COUNT(AUTO) 5.19 MIL/uL (4.20-6.10); RED CELL DISTRIBUTION WIDTH 15.5 % (11.6-13.7); WHITE BLOOD COUNT (AUTO) 14.6 K/uL (4.8-10.8)
[2022-08-22 06:35] LABS: CREATININE 0.9 mg/dL (0.6-1.3)
--- NOTE | 2022-08-22 07:25 | NUR ---
Pt is stable. Endorsed pt to morning shift nurse for continuity of care.
--- NOTE | 2022-08-22 07:26 | NUR ---
RECEIVED PT FROM CUSTOMER CARE ASSOCIATE NURSE FOR CONTINUITY OF CARE. PT IS IN BED. AOX4, ABLE TO VERBALIZE NEEDS. RESPIRATIONS EVEN AND UNLABORED ON RA. IV ON LAC 20G SL. CALL LIGHT WITHIN REACH. ALL SAFETY PRECAUTIONS IN PLACE.
[2022-08-22 08:00] VITALS: BP 128/80
[2022-08-22] MEDS: ACETAMINOPHEN 325 MG TAB PO PRN (08:45)
--- NOTE | 2022-08-22 08:49 | NUR ---
TYLENOL GIVEN FOR TEMP OF 100.2, COVERS REMOVED. PT TOLERATING WELL.
--- NOTE | 2022-08-22 09:15 | NUR ---
PATIENT HAS BEEN SCREENED AND CATEGORIZED MODERATE NUTRITION RISK. PATIENT WILL BE SEEN WITHIN 3-5 DAYS OF ADMISSION. REVIEWED BY LEESA ESPINOSA RD
--- NOTE | 2022-08-22 10:00 | NUR ---
PT TEMPERATURE CHECKED, TEMPERATURE NOW LOWERED TO 98.2.
[2022-08-22] MEDS ORDERED: VANCOMYCIN PER PHARMACY MC PRN (10:25)
--- NOTE | 2022-08-22 10:55 | NUR ---
WOUND CARE NOTE: PT. ADMITTED WITH CHRONIC SURGICAL WOUND TO LEFT GROIN FULL THICKNESS SKIN LOSS 3X2X0.8CM WOUND BED 100% RED GRANULATION TISSUE, MOIST, NO ODOR, WOUND EDGE FLAT, BETO-WOUND SKIN DRY HEALED SCAR TISSUE, PAIN 0/10. BLE POSTERIOR LOWER EXTREMITIES CHRONIC STASIS ULCERS: RLE 8X3CM HEALING PINK TISSUE, MOIST, NO ODOR, BETO-WOUND SKIN DRY INTACT. LLE 2X2X0.1CM 100% PINK TISSUE, MOIST. NO ODOR, BETO-WOUND SKIN DRY INTACT. PER PT. ALGINATE DRESSING WAS CHANGED YESTERDAY. POC DISCUSSED WITH PT. PT IS AAX4, WILL CONTINUE ALGINATE DRESSING. RECOMMENDATIONS: -CLEANSE LEFT GROIN. AND BLE WOUNDS WITH NS, PAT DRY, APPLY ALGINATE DRESSING, COVER WITH COMPOSITE DRESSING QD AND PRN IF SOILING -POSITIONING: TURN AND REPOSITION PATIENT Q 2H OR SOONER USE PILLOWS TO KEEP BONY PROMINENCES FROM DIRECT CONTACT WITH SURFACES USE REPOSITIONING WEDGES TO PROVIDE 30-DEGREE ANGLE FOR SIDE LYING POSITIONS OFFLOADING OR FOAM DRESSING TO ALL TUBING TO PREVENT MEDICAL DEVICES RELATED PRESSURE INJURY -RE-EVALUATING AND MANAGING INCONTINENCE MONITOR SKIN CONDITION DURING POSITION CHANGE DO NOT MASSAGE REDNESS, BONY PROMINENCES FREQUENT BETO-CARE AND PROVIDE BARRIER CREAMS PRN IF SOILING MOISTURE CONTROL BY MELVIN CATH OR ABSORBENT PAD TO WICK AND HOLD MOISTURE KEEP SKIN DRY AND PROTECT FROM FRICTION -MANAGE FRICTION/SHEAR/MOBILITY KEEP HOB AT THE LOWEST LEVEL OF ELEVATION NO MORE THAN 30 DEGREE UNLESS OTHERWISE CONTRAINDICATED USE LIFT SHEET OR TRANSFER DEVICE TO MOVE PATIENT AND PREVENT LATERAL SHEER. PROTECT HEELS, ELBOWS BONY PROMINENCES WITH SKIN BERRIES OR FOAM DRESSING IF EXPOSED TO FRICTION OFFLOAD BILATERAL HEELS BY PLACING PILLOWS UNDER CALVES AT ALL TIMES, UNLESS OTHERWISE CONTRAINDICATED -PRESSURE REDISTRIBUTION SURFACE THERAPY JUAN ISOFLEX MATTRESS -NUTRITION: PLEASE FOLLOW RD RECOMMENDATIONS AND OFFER NUTRITION SUPPLEMENTS IF ORDERED. PLEASE CONTACT WOUND CARE NURSE FOR ANY QUESTION AND CHANGE OF WOUND CONDITION.
[2022-08-22] MEDS ORDERED: ALGINATE ROPE MC PRN (11:10)
[2022-08-22] MEDS ORDERED: VANCOMYCIN HCL 1.25 GM in DEXTROSE 5% 250 ML IV SCH (12:00)
[2022-08-22] MEDS: VANCOMYCIN 1.25GM PREMIX 250 ML IV SCH ×2 (12:00→23:18)
--- NOTE | 2022-08-22 12:25 | NUR ---
DC PLANNING ASSESSMENT COMPLETE PLEASE REFER TO ASSESSMENT FOR ADDITIONAL DETAILS SW MET WITH PT AT BEDSIDE TO COMPLETE ASSESSMENT. PT REPORTS NO CHANGES SINCE LAST VISIT. PT IS REPORTED TO BE IN LONG-TERM CARE WITH FACILITY, ADMISSION DATE JUN 18. JESSICA GUERRA, IS PTS RESPONSIBLE [facility]. PT IS REPORTED TO BE PRIMARILY BED BOUND AND UTILIZES WC TOLERATED. PT IS TOTAL CARE AT [facility] AND CARE IS PROVIDED BY [facility]FF. PT IS REPORTED TO BE COMPLIANT WITH CARE AND DOES NOT DISPLAY ANY DISRUPTIVE BX'S. PT HAS HX OF DIABETES THAT IS WELL MANAGED BY FACILITY. PT REPORTS DC PLAN IS FOR PT TO RETURN TO [facility] [place] ONCE MEDICALLY STABLE. Addendum: 08/22/22 at 1226 by Faustino Angulo SS Amended: Links added.
[2022-08-22 16:00] VITALS: BP 104/69
--- NOTE | 2022-08-22 19:25 | NUR ---
ENDORSED PT TO SERVICE STATION CASHIER NURSE FOR CONTINUITY OF CARE. PT STABLE.
--- NOTE | 2022-08-22 19:30 | NUR ---
RECEIVED PT IN BED, AWAKE,ALERT AND ORIENTED X 4. DENIES PAIN. DENIES SHORTNESS OF BREATH. SKIN WARM AND DRY TO TOUCH. SAFETY PRECAUTIONS IN PLACE, CALL LIGHT IN REACH.
[2022-08-22 20:00] VITALS: BP 117/79
--- NOTE | 2022-08-23 01:51 | NUR ---
PATIENT IS ASLEEP. NO S/SX OF PAIN NOR DISCOMFORT. CALL LIGHT IN REACH.
[2022-08-23] MEDS: ACETAMINOPHEN 325 MG TAB PO PRN ×2 (03:50→15:43)
--- NOTE | 2022-08-23 03:50 | NUR ---
TEMP-100.6, TYLENOL GIVEN ORDERED, AM CARE RENDERED. REFUSED COOLING MEASURES. MADE COMFORTABLE IN BED. CALL LIGHT WITHIN REACH.
[2022-08-23 04:00] VITALS: BP 114/63
[2022-08-23 05:39] LABS: BASOPHILS % (AUTO) 0.2 % (0.0-2.0); EOSINOPHILS # (AUTO) 0.1 K/uL (0-0.4); EOSINOPHILS % (AUTO) 0.4 % (0.0-4.0); HEMOGLOBIN 12.3 g/dL (12.0-18.0); LYMPHOCYTES # (AUTO) 1.9 K/uL (2.0-11.5); LYMPHOCYTES % (AUTO) 12.4 % (20.5-51.1); MEAN CORPUSCULAR HEMOGLOBIN 25 pg (27-31); MEAN CORPUSCULAR HGB CONC 32 g/dL (33-37); MEAN CORPUSCULAR VOLUME 78.4 fL (80-94); MONOCYTES # (AUTO) 1.4 K/uL (0.8-1.0); MONOCYTES % (AUTO) 9.3 % (1.7-9.3); NEUTROPHILS # (AUTO) 11.9 K/uL (1.8-7.7); NEUTROPHILS % (AUTO) 77.7 % (42.2-75.2); PLATELET COUNT (AUTO) 187 K/uL (140-450); RED BLOOD CELL COUNT(AUTO) 4.84 MIL/uL (4.20-6.10); RED CELL DISTRIBUTION WIDTH 15.7 % (11.6-13.7); WHITE BLOOD COUNT (AUTO) 15.4 K/uL (4.8-10.8)
--- NOTE | 2022-08-23 05:48 | NUR ---
RE-CHECKED TEMP-98.4. PT ASLEEP. NO DISTRESS NOTED. CALL LIGHT IN REACH.
[2022-08-23 06:16] LABS: ANION GAP 11.1 (8-16); CREATININE 0.7 mg/dL (0.6-1.3); POTASSIUM 3.1 mmol/L (3.5-5.1)
--- NOTE | 2022-08-23 06:46 | NUR ---
PATIENT IS ASLEEP. ALL NEEDS ATTENDED TO. NO DISTRESS NOTED. SAFETY PRECAUTIONS IN PLACE DURING THE SHIFT, CALL LIGHT REMAINS WITHIN REACH.
--- NOTE | 2022-08-23 10:37 | NUR ---
RECEIVED BEDSIDE ENDORSEMENT FROM LABORATORY CHIEF NURSE FOR CONTINUITY OF CARE. PT IS ASLEEP, AWAKEN BY NAME AND TOUCH. PT RETURNED TO SLEEP, NO SIGN OF DISTRESS. Addendum: 08/23/22 at 1100 by LUZ MARINA STEINBERG RN WRONG TIME ENTRY. [id number]
--- NOTE | 2022-08-23 12:00 | NUR ---
SCHEDULED MED GIVEN. PT IS HAVING LUNCH. CALL DARLING WITHIN REACH.
[2022-08-23] MEDS: VANCOMYCIN 1.25GM PREMIX 250 ML IV SCH ×2 (12:21→23:01)
[2022-08-23] MEDS: ALGINATE ROPE MC SCH (14:00)
[2022-08-23 16:00] VITALS: BP 112/64
--- NOTE | 2022-08-23 19:00 | NUR ---
PT ENDORSED TO THE LOOM CHANGEOVER OPERATOR NURSE FOR CONTINUITY OF CARE. CALL DARLING WITHIN REACH.
--- NOTE | 2022-08-23 19:18 | NUR ---
RECEIVED PT IN BED AWAKE, ALERT AND ORIENTED. DENIES PAIN. NO ACUTE RESPIRATORY DISTRESS NOTED. NOTED REDNESS IN THE FACE AND PT COMPLAINING OF ITCHINESS, INFORMED DR. SINGH AND ORDERED BENADRYL IV X 1, WILL CARRY OUT ORDER. SKIN WARM AND DRY TO TOUCH. SAFETY PRECAUTIONS IN PLACE, CALL LIGHT IN REACH.
[2022-08-23] MEDS ORDERED: diphenhydrAMINE 50 MG/ML VIAL IVP SCH (19:20)
[2022-08-23 20:00] VITALS: BP 121/74
--- NOTE | 2022-08-23 20:31 | NUR ---
BENADRYL GIVEN ORDERED.
--- NOTE | 2022-08-23 20:40 | NUR ---
LEFT GROIN WOUND CULTURE DONE AND SENT TO THE LAB ORDERED.
--- NOTE | 2022-08-23 22:31 | NUR ---
ROUNDING DONE, PT ASLEEP. NO DISTRESS NOTED.
--- NOTE | 2022-08-23 23:27 | NUR ---
PROVIDED BLANKET. PATIENT DENIES ITCHINESS AT THIS TIME. CALL LIGHT PLACED WITHIN REACH.
[2022-08-24] MEDS: ACETAMINOPHEN 325 MG TAB PO PRN (03:18)
--- NOTE | 2022-08-24 03:18 | NUR ---
PATIENT REQUESTED FOR WARM BLANKET, NOTED SKIN TO WARM TO TOUCH, TEMP CHECKED-100.9, TYLENOL GIVEN ORDERED. PT AGREED TO DO SPONGE BATH ONLY ON THE FRONT PART OF THE BODY, REFUSED BACK TO BE DONE, ENCOURAGED PT TO TURN AND HAVE HIS BACK CLEANED BUT PATIENT STILL REFUSED. STILL WANTS BLANKET TO BE PLACED ON HIM. PROVIDED WATER.
[2022-08-24 03:35] VITALS: BP 109/67
--- NOTE | 2022-08-24 04:31 | NUR ---
RE-CHECKED TEMP-98.8. PATIENT DENIES PAIN. REFUSED TO REPOSITIONED.
--- NOTE | 2022-08-24 06:06 | NUR ---
PATIENT WANTS TO BE ON A SUPINE POSITION, REFUSED TO TURN.
--- NOTE | 2022-08-24 06:35 | NUR ---
PATIENT IS ASLEEP. ALL NEEDS ATTENDED TO. NO DISTRESS NOTED. SAFETY PRECAUTIONS MAINTAINED DURING THE SHIFT, CALL LIGHT REMAINS WITHIN REACH.
[2022-08-24 06:56] LABS: BASOPHILS % (AUTO) 0.2 % (0.0-2.0); EOSINOPHILS # (AUTO) 0.1 K/uL (0-0.4); EOSINOPHILS % (AUTO) 0.5 % (0.0-4.0); HEMATOCRIT 37.7 % (36-52); HEMOGLOBIN 12.1 g/dL (12.0-18.0); LYMPHOCYTES # (AUTO) 1.6 K/uL (2.0-11.5); LYMPHOCYTES % (AUTO) 10.6 % (20.5-51.1); MEAN CORPUSCULAR HEMOGLOBIN 25 pg (27-31); MEAN CORPUSCULAR HGB CONC 32 g/dL (33-37); MEAN CORPUSCULAR VOLUME 78.9 fL (80-94); MONOCYTES # (AUTO) 1.2 K/uL (0.8-1.0); MONOCYTES % (AUTO) 8.2 % (1.7-9.3); NEUTROPHILS # (AUTO) 12.2 K/uL (1.8-7.7); NEUTROPHILS % (AUTO) 80.5 % (42.2-75.2); PLATELET COUNT (AUTO) 200 K/uL (140-450); RED BLOOD CELL COUNT(AUTO) 4.78 MIL/uL (4.20-6.10); RED CELL DISTRIBUTION WIDTH 15.3 % (11.6-13.7); WHITE BLOOD COUNT (AUTO) 15.2 K/uL (4.8-10.8)
--- NOTE | 2022-08-24 07:11 | NUR ---
RECEIVED REPORT FROM NIGHTSHIFT NURSE. PT IS ASLEEP IN BED, WOKE TO NAME AND TOUCH. NO SIGNS OF DISTRESS, NO REPORTS OF PAIN/DISCOMFORT. REORIENTED PT TO CALL LIGHT. NO FURTHER NEEDS ARE TO BE MET AT THIS TIME. WILL CONTINUE WITH PATIENT CARE.
[2022-08-24 07:16] LABS: ANION GAP 10.6 (8-16); CARBON DIOXIDE 25.4 mmol/L (21-32); CREATININE 0.7 mg/dL (0.6-1.3)
[2022-08-24] MEDS ORDERED: diphenhydrAMINE 50 MG/ML VIAL IVP PRN (11:05)
[2022-08-24] MEDS: VANCOMYCIN 1.25GM PREMIX 250 ML IV SCH (13:00)
[2022-08-24] MEDS: ALGINATE ROPE MC SCH (13:50)
--- NOTE | 2022-08-24 19:26 | NUR ---
ENDORSED PT TO NIGHTSHIFT NURSE FOR CONTINUITY OF CARE. PT IS RESTING IN BED, NO SIGNS OF DISTRESS. BED IN LOWEST POSITION, 2 SIDE RAILS UP, CALL LIGHT WITHIN REACH. NO FURTHER NEEDS ARE TO BE MET AT THIS TIME.
[2022-08-24 20:00] VITALS: BP 103/66
--- NOTE | 2022-08-24 20:00 | NUR ---
NURSE REPORT REPORT OBTAINED FROM [facility] NURSE BENNETT AT 1926 AND THIS NURSE ASSUMED CARE OF PATIENT. VSS. AFEB. TEMP 99.3F. NO C/O PAIN OR DISCOMFORT.IV D5 1/2NS AND 20 MEQ KCL INFUSING AT 100 ML/HR. MILTON JIMENEZ RN
[2022-08-24] MEDS ORDERED: CEFEPIME 1,000 MG VIAL ONE (21:00)
[2022-08-24] MEDS: CEFEPIME 1,000 MG in DEXTROSE 5% 50 ML IV SCH (21:10)
--- NOTE | 2022-08-24 22:18 | NUR ---
NURSE NOTES MEDICATED WITH MORPHINE 2 MG IVP IVP AT 2117 WITH RELIEF OF PAIN.
[2022-08-25] MEDS: VANCOMYCIN 1.25GM PREMIX 250 ML IV SCH ×2 (00:40→12:31)
--- NOTE | 2022-08-25 01:15 | NUR ---
NURSE REPORT REPORT GIVEN TO OTHER NIGHT NURSE RENÉ TO ASSUME CARE OF PATIENT. ALL QUESTIONS ANSWERED. NEED PICTURES TAKEN OF WOUND. MILTON JIMENEZ RN
--- NOTE | 2022-08-25 03:53 | NUR ---
Pt's dressing appears clean, dry, and intact. No substitute dressing available right now. Will endorse to day RN.
[2022-08-25 05:21] LABS: BASOPHILS % (AUTO) 0.4 % (0.0-2.0); EOSINOPHILS # (AUTO) 0.1 K/uL (0-0.4); EOSINOPHILS % (AUTO) 0.8 % (0.0-4.0); HEMATOCRIT 36.6 % (36-52); HEMOGLOBIN 11.9 g/dL (12.0-18.0); LYMPHOCYTES # (AUTO) 1.6 K/uL (2.0-11.5); LYMPHOCYTES % (AUTO) 9.5 % (20.5-51.1); MEAN CORPUSCULAR HEMOGLOBIN 26 pg (27-31); MEAN CORPUSCULAR HGB CONC 33 g/dL (33-37); MEAN CORPUSCULAR VOLUME 78.5 fL (80-94); MONOCYTES # (AUTO) 1.3 K/uL (0.8-1.0); NEUTROPHILS # (AUTO) 13.5 K/uL (1.8-7.7); NEUTROPHILS % (AUTO) 81.3 % (42.2-75.2); PLATELET COUNT (AUTO) 207 K/uL (140-450); RED BLOOD CELL COUNT(AUTO) 4.66 MIL/uL (4.20-6.10); WHITE BLOOD COUNT (AUTO) 16.6 K/uL (4.8-10.8)
[2022-08-25 05:42] LABS: ANION GAP 10.9 (8-16); CARBON DIOXIDE 26.6 mmol/L (21-32); CREATININE 0.6 mg/dL (0.6-1.3); POTASSIUM 3.5 mmol/L (3.5-5.1)
[2022-08-25 06:07] LABS: BASOPHILS # (AUTO) 0.1 K/uL (0.00-0.22)
[2022-08-25 06:37] LABS: PROTHROMBIN TIME 11.5 secs (10.8-13.4)
--- NOTE | 2022-08-25 07:00 | NUR ---
RECEIVED BEDSIDE REPORT FROM NIGHTSHIFT NURSE. PT IS RESTING IN BED, AOX4, NO SIGNS OF DISTRESS, NO REPORTS OF PAIN/DISCOMFORT. NO FURTHER NEEDS ARE TO BE MET AT THIS TIME. WILL CONTINUE WITH CARE.
[2022-08-25] MEDS: POTASSIUM CHL 20 MEQ/D5-1/2NS 1,000 ML IV SCH ×3 (07:10→19:00)
[2022-08-25] MEDS: CEFEPIME 1,000 MG in DEXTROSE 5% 50 ML IV SCH ×2 (10:00→21:28)
--- NOTE | 2022-08-25 11:13 | NUR ---
C PLANNIN YRS OLD MALE PATIENT [place] AD[place] [facility] [place] OF [place]. PATIENT HAS A HX OF ASTHMA,HEP B, DM,HTN, HLD, AND CVA. CXR SHOWED LOW LUNG VOLUME. CT LEFT LOWER EXT SHOWED SUSPICIOUS FOR LEFT HIP SEPTIC ARTHRITIS WITH OSTEOMYELITIS. ADMINISTERED IVF, VANCOMYCIN CEFEPIME AND ROCEPHIN IV ABX AND CONTINUED HOME MEDS. DR TEAGAN LESLIE PERFORMED LEFT HIP SOFT TISSUE I&D JOINT ARTHROTOMY AND LAVAGE AND LEFT HIP EXCISION OF SINUS TRACT AND APPLIED WOUND VAC. ID AND CARDIO FOLLOWING. DC PLAN TO RETURN TO [facility] WHEN STABLE CM TO FOLLOW Addendum: 08/27/22 at 1514 by Kay Gonzalez RN DC PLANNING: S/P I&D OF LEFT HIP WITH DR THOMAS . CONTINUED WITH IV VANCO AND LEVAQUIN . AWAITING FOR WOUND CULTURE . DC PLAN TO RETURN TO [facility] WHEN STABLE. CM TO FOLLOW Addendum: 08/28/22 at 1243 by PETRONA PORTILLO CM WHEN PATIENT IS DISCHARGED PATIENT WILL GO TO [facility] ROOM [facility] UNDER [address]SE[address]A. Addendum: 08/29/22 at 1037 by Kay Gonzalez RN DC PLANNING: PATIENT HAS A DC ORDER TO RETURN TO [facility] WITH WOUND VAC. NANCY TENA WILL ORDER WOUND VAC. DC COMMERCIAL SERVICE TECHNICIAN TO FOLLOW UP. Addendum: 08/29/22 at 1059 by PETRONA PORTILLO CM RECEIVED ORDER FOR PATIENT TO GO BACK TO [facility]. FAXED ALL PAPERWORK TO [facility]. SPOKE WITH DARINEL PATIENT WILL BE GOING TOT ROOM [address] UNDER DR ROCHA. TRANSPORTATION ARRANGED WITH JUANITO AT [employer] FOR A [id number] SHOWER MAID TIME. NURSE RAJENDRA AND SISTER YOVANY LOPEZ AWARE OF THE ABOVE INFORMATION. Addendum: 08/29/22 at 1153 by PETRONA PORTILLO CM CALLED DARINEL AT [facility] TO SEE IF THEY HAVE RECEIVED THE WOUND VAC YET. SHE INFORMED ME THAT ONCE THE PATIENT GETS THERE THEY WILL PLACE THE ORDER AND SHE SPOKE WITH HER NURSES WHO SAID HE SHOULD BE FINE TO WAIT FOR THE WOUND VAC LONG HIS WET TO DRY PACKING.
[2022-08-25] MEDS: ALGINATE ROPE MC SCH (13:52)
--- NOTE | 2022-08-25 14:41 | NUR ---
08/25/22 RD INITIAL ASSESSMENT COMPLETED PLEASE REFER TO NUTRITION ASSESSMENT UNDER CARE ACTIVITY FOR ESTIMATED NUTRITIONAL NEEDS. 1. MONITOR NPO STATUS 2. WHEN/IF MEDICALLY APPROPRIATE, RECOMMEND [id number] DIET WITH PROSOURCE BID FOR WOUND SUPPORT -PROSOURCE BID PROVIDES 120 KCAL AND [address] PR[address]IN DA[address]. RD TO FOLLOW-UP 3-5 DAYS, MODERATE RISK REVIEWED BY LEESA ESPINOSA RD
[2022-08-25] MEDS ORDERED: BUPIVACAINE-MPF/EPI 0.25% 30 ML VIAL INJ ONE (16:00)
[2022-08-25] MEDS ORDERED: LIDOCAINE/EPI MPF 1%1:200000 30 ML VIAL INJ ONE (16:00)
--- NOTE | 2022-08-25 16:12 | NUR ---
PT LEFT FOR SURGERY 1610 VIA [facility]. PT WILL BE HAVING DEBRIDEMENT OF LEFT HIP. PT STABLE UPON TRANSFER TO OR.
[2022-08-25] MEDS ORDERED: fentaNYL citrate 0.05 MG/ML VIAL ONE (16:23)
[2022-08-25] MEDS ORDERED: PROPOFOL 200 MG/20 ML VIAL IV ONE (16:25)
[2022-08-25] MEDS ORDERED: MEPERIDINE 50 MG/ML SYR ONE (16:53)
[2022-08-25] MEDS ORDERED: TRANEXAMIC ACID 1,000 MG/10 ML VIAL ONE (16:55)
[2022-08-25] MEDS ORDERED: VANCOMYCIN 1,000 MG VIAL ONE (17:23)
--- NOTE | 2022-08-25 18:50 | NUR ---
PT RETURNED FROM OR [facility]IA [facility] @ 6012. PT STABLE, RESTING IN BED. WILL ENDORSE TO NIGHTSHIFT NURSE.
--- NOTE | 2022-08-25 19:30 | NUR ---
ENDORSED PT TO NIGHTSHIFT NURSE FOR CONTINUITY OF CARE. PT STABLE, RESTING IN BED, PT REMOVED O2 NC AND STATES HE DOES NOT WANT IT ON, (O2 SAT ASSESSMENT = 91), REAPPLIED NC AND EDUCATED ON NEED/BENEFIT OF USING O2. PT OKAY WITH KEEPING NC ON. O2 NOW 95%. NO SIGNS OF DISTRESS. NO FURTHER NEEDS ARE TO BE MET AT THIS TIME.
--- NOTE | 2022-08-25 19:31 | NUR ---
RECEIVED REPORT FROM DAY SHIFT NURSE DONALD FOR CONTINUITY OF CARE. PT AWAKE IN BED. ON 2L NC. SATTING AT 98%. NO DISTRESS NOTED. NOTED WOUND VAC ON LEFT GROIN AND KAMRON DRAIN ON LEFT HIP, BOTH DRAINING WELL. PT NO COMPLAINT OF PAIN AT THIS TIME. POC DISCUSSED. REPORT GIVEN TO LALA COY. CALL LIGHT WITHIN REACH. SAFETY PRECAUTIONS IN PLACE.
[2022-08-25 20:00] VITALS: BP 101/69
--- NOTE | 2022-08-25 22:55 | NUR ---
Patient's Plan of Care was discussed and reviewed with FIDENCIO gunn
[2022-08-26] MEDS: VANCOMYCIN 1.25GM PREMIX 250 ML IV SCH ×2 (00:05→12:45)
[2022-08-26] MEDS: HYDROcodone/APAP 10/325 MG 1 TAB TAB PO PRN (00:39)
[2022-08-26] MEDS: POTASSIUM CHL 20 MEQ/D5-1/2NS 1,000 ML IV SCH ×3 (03:30→23:15)
[2022-08-26 04:00] VITALS: BP 99/67
[2022-08-26 06:04] LABS: ANION GAP 9.2 (8-16); CARBON DIOXIDE 27.5 mmol/L (21-32); CREATININE 0.5 mg/dL (0.6-1.3); POTASSIUM 3.7 mmol/L (3.5-5.1)
--- NOTE | 2022-08-26 06:14 | NUR ---
DID MORNING CARE. DRAINED 40CC SANGUINOUS WOUND DRAINAGE FROM KAMRON DRAIN AND NOTED MINIMAL (CAN'T MEASURE) DRAINAGE FROM WOUND VAC. PT NO COMPLAINT OF PAIN. NO DISTRESS NOTED.
[2022-08-26 06:15] LABS: BASOPHILS % (AUTO) 0.2 % (0.0-2.0); EOSINOPHILS # (AUTO) 0.1 K/uL (0-0.4); EOSINOPHILS % (AUTO) 1.1 % (0.0-4.0); HEMATOCRIT 32.5 % (36-52); HEMOGLOBIN 10.6 g/dL (12.0-18.0); LYMPHOCYTES # (AUTO) 1.4 K/uL (2.0-11.5); LYMPHOCYTES % (AUTO) 10.4 % (20.5-51.1); MEAN CORPUSCULAR HEMOGLOBIN 26 pg (27-31); MEAN CORPUSCULAR HGB CONC 33 g/dL (33-37); MONOCYTES # (AUTO) 1.1 K/uL (0.8-1.0); MONOCYTES % (AUTO) 8.5 % (1.7-9.3); NEUTROPHILS # (AUTO) 10.7 K/uL (1.8-7.7); NEUTROPHILS % (AUTO) 79.8 % (42.2-75.2); PLATELET COUNT (AUTO) 213 K/uL (140-450); RED BLOOD CELL COUNT(AUTO) 4.16 MIL/uL (4.20-6.10); RED CELL DISTRIBUTION WIDTH 15.5 % (11.6-13.7); WHITE BLOOD COUNT (AUTO) 13.4 K/uL (4.8-10.8)
--- NOTE | 2022-08-26 07:12 | NUR ---
ASSUMED CONTINUITY OF CARE. INITIAL ASSESSMENT DONE. KEEP COMFORTABLE ON BED. FALL PRECAUTION APPLIED. CALL LIGHT WITHIN REACH.
--- NOTE | 2022-08-26 07:16 | NUR ---
GAVE BEDSIDE REPORT TO FIDENCIO ORTIZ FOR CONTINUITY OF CARE. PT IS STABLE.
[2022-08-26 08:00] VITALS: BP 101/68
[2022-08-26] MEDS: CEFEPIME 1,000 MG in DEXTROSE 5% 50 ML IV SCH ×2 (10:46→20:43)
--- NOTE | 2022-08-26 13:45 | NUR ---
WOUND CARE DONE ON BLE. TOLERATED WELL. BLE ELEVATED WITH PILLOWS.
[2022-08-26] MEDS: ALGINATE ROPE MC SCH (14:11)
[2022-08-26 16:00] VITALS: BP 94/63
--- NOTE | 2022-08-26 16:10 | NUR ---
EMPTIED KAMRON DRAIN WITH 55 ML OUTPUT.
--- NOTE | 2022-08-26 16:15 | NUR ---
Patient's Plan of Care was discussed and reviewed with TUNNEL ELASTIC OPERATOR CHAINSTITCH: DIANA
--- NOTE | 2022-08-26 19:10 | NUR ---
REPORT GIVEN TO KWAME MAGAÑA. IN STABLE CONDITION. IVF INFUSING WELL.
--- NOTE | 2022-08-26 19:11 | NUR ---
RECEIVED REPORT FROM FIDENCIO ORTIZ FOR CONTINUITY OF CARE. PT A/A/O, IN BED. RESPIRATIONS EVEN AND UNLABORED ON RA. STATED HE'S OK. DENIES PAIN AT THIS TIME. WOUND VAC AND AKMRON DRAIN, INTACT. BLE WOUND COVED WITH DRESSING. POC DISCUSSED. REPORT GIVEN TO LALA COY. CALL LIGHT WITHIN REACH. SAFETY PRECAUTIONS IN PLACE.
[2022-08-26 20:00] VITALS: BP 95/58
--- NOTE | 2022-08-26 22:00 | NUR ---
Patient's Plan of Care was discussed and reviewed with FIDENCIO GIBBONS
[2022-08-27] MEDS: VANCOMYCIN 1.25GM PREMIX 250 ML IV SCH ×3 (00:04→23:32)
[2022-08-27] MEDS: POTASSIUM CHL 20 MEQ/D5-1/2NS 1,000 ML IV SCH ×3 (02:30→19:15)
[2022-08-27 04:00] VITALS: BP 103/64
[2022-08-27] MEDS: HYDROcodone/APAP 10/325 MG 1 TAB TAB PO PRN (04:26)
--- NOTE | 2022-08-27 04:26 | NUR ---
V/S WAS TAKEN, WITHIN NORMAL LIMITS. PT COMPLAINED OF LEFT HIP PAIN 6/. PRN PAIN MED ADMINISTERED PER MD ORDER. DID MORNING CARE. PT TOLERATED WELL. PT REMAINED CLEAN AND DRY.
--- NOTE | 2022-08-27 07:09 | NUR ---
GAVE BEDSIDE REPORT TO FIDENCIO ORTIZ FOR CONTINUITY OF CARE. PT IS STABLE.
--- NOTE | 2022-08-27 07:09 | NUR ---
ASSUMED CONTINUITY OF CARE. INITIAL ASSESSMENT DONE. KEEP COMFORTABLE ON BED. CALL LIGHT WITHIN REACH.
[2022-08-27 08:00] VITALS: BP 99/64
[2022-08-27] MEDS: levoFLOXacin 750 MG TAB PO SCH (08:51)
[2022-08-27 10:37] LABS: BASOPHILS % (AUTO) 0.4 % (0.0-2.0); EOSINOPHILS # (AUTO) 0.2 K/uL (0-0.4); EOSINOPHILS % (AUTO) 1.9 % (0.0-4.0); HEMATOCRIT 32.1 % (36-52); HEMOGLOBIN 10.4 g/dL (12.0-18.0); LYMPHOCYTES # (AUTO) 1.2 K/uL (2.0-11.5); MEAN CORPUSCULAR HEMOGLOBIN 26 pg (27-31); MEAN CORPUSCULAR HGB CONC 32 g/dL (33-37); MEAN CORPUSCULAR VOLUME 79.2 fL (80-94); MONOCYTES # (AUTO) 0.6 K/uL (0.8-1.0); NEUTROPHILS # (AUTO) 6.5 K/uL (1.8-7.7); NEUTROPHILS % (AUTO) 76.7 % (42.2-75.2); PLATELET COUNT (AUTO) 225 K/uL (140-450); RED BLOOD CELL COUNT(AUTO) 4.05 MIL/uL (4.20-6.10); RED CELL DISTRIBUTION WIDTH 15.4 % (11.6-13.7); WHITE BLOOD COUNT (AUTO) 8.4 K/uL (4.8-10.8)
[2022-08-27 10:42] LABS: ANION GAP 8.2 (8-16); CARBON DIOXIDE 29.3 mmol/L (21-32); CREATININE 0.5 mg/dL (0.6-1.3); POTASSIUM 3.5 mmol/L (3.5-5.1)
[2022-08-27 11:53] LABS: ALBUMIN 1.6 g/dL (3.4-5.0); ANION GAP 8.6 (8-16); CREATININE 0.6 mg/dL (0.6-1.3); POTASSIUM 3.6 mmol/L (3.5-5.1); TOTAL BILIRUBIN 0.2 mg/dL (0.0-1.0)
[2022-08-27] MEDS: ALGINATE ROPE MC SCH (13:30)
[2022-08-27 16:00] VITALS: BP 116/80
--- NOTE | 2022-08-27 17:41 | NUR ---
PAGED DR. REYNOLDS AND INFORMED THAT SAMUEL MARIANO WAS PAGED AT 1659 AND DIDN'T RESPOND REGARDING LOVENOX 40 MG SUB-Q Q24 SCHEDULE AT 1800 AND KAMRON DRAIN OUTPUT 50 ML -SANGUINEOUS. DR. REYNOLDS PAGED BACK AND ORDERED TO CONTINUE LOVENOX 40 MG SUB-Q Q24 SCHEDULE AT 1800 TODAY. INFORMED CHARGE NURSE ESME GILLIS.
[2022-08-27] MEDS: ENOXAPARIN 40 MG/0.4 ML SYR SUBQ SCH (18:12)
--- NOTE | 2022-08-27 19:26 | NUR ---
REPORT GIVEN TO LUCI GILLIS FOR CONTINUITY OF CARE. IVF INFUSING WELL. IN STABLE CONDITION.
[2022-08-27 20:00] VITALS: BP 110/71
--- NOTE | 2022-08-27 20:00 | NUR ---
SUBLIMAZE IS NOT ADMINISTERED, GIVEN DURING PROCEDURE.
[2022-08-28] MEDS: HYDROcodone/APAP 10/325 MG 1 TAB TAB PO PRN ×2 (00:16→11:21)
--- NOTE | 2022-08-28 00:16 | NUR ---
PT COMPLAINTS OF LEGS PAIN 12/04, PAIN MEDICATION NORCO ADMINISTERED ORDER.
[2022-08-28 04:00] VITALS: BP 105/76
[2022-08-28 08:00] VITALS: BP 98/67
[2022-08-28] MEDS: levoFLOXacin 750 MG TAB PO SCH (09:35)
[2022-08-28] MEDS: POTASSIUM CHL 20 MEQ/D5-1/2NS 1,000 ML IV SCH ×2 (09:37→19:12)
--- NOTE | 2022-08-28 11:20 | NUR ---
Wound care/wound vacuum dressing change at this time. Next due 5/6 per wound care nurse team.
--- NOTE | 2022-08-28 12:08 | NUR ---
WOUND CARE NOTE: LEFT GROIN WOUND VAC DRESSING CHANGE WITH PRIMARY RN RAJENDRA. POC DISCUSSED WITH DR. THOMAS. NEXT WOUND VAC DRESSING CHANGE ON THURSDAY FOR PRIMARY NURSE TO PERFORM. NEXT WEEK THURSDAY VAC DRESSING CHANGE BY WOUND CARE NURSE AND TO REPLACE ADAPTIC DRESSING ON WOUND BED. PER DR. THOMAS HE WILL COME BY TO SEE PT. IN BETWEEN THESE DAYS. CANISTER LESS THAN 50ML DRAINAGE OBSERVED. LEFT HIP KAMRON DRAIN AROUND 2O ML SEROSANGUINEOUS DRAINAGE OBSERVED. SITE IS CLEAN WITH TRANSPARENT DRESSING IN PLACE. DR. THOMAS ALSO SPOKE TO PRIMARY RN RAJENDRA. -LEFT GROIN SURGICAL WOUND [id number] WITH 12 O'CLOCK DIRECTION TUNNEL WOUND 1.5CM. WOUND BED MOIST, RED, NO ODOR, SMALL AMOUNT BLEEDING, BETO-WOUND SKIN DRY, CLEAN AND INTACT.
[2022-08-28] MEDS ORDERED: COMMUNICATION ORDER MC SCH (12:30)
[2022-08-28] MEDS: HYDROXYZINE HYDROCHLORIDE 10 MG TAB PO SCH ×2 (13:37→19:12)
[2022-08-28] MEDS: VANCOMYCIN 1.25GM PREMIX 250 ML IV SCH (13:38)
[2022-08-28] MEDS: ALGINATE ROPE MC SCH (13:38)
[2022-08-28 16:00] VITALS: BP 97/60
[2022-08-28] MEDS: ENOXAPARIN 40 MG/0.4 ML SYR SUBQ SCH (19:16)
[2022-08-28 20:00] VITALS: BP 116/80
--- NOTE | 2022-08-28 20:00 | NUR ---
ALIN ASSEMBLER CATERPILLAR SPIDER TOOK PT'S V/S . ALIN TOLD ME PT IS C/O PAIN - WILL RE ASSES THE PT'S PAIN AND WILL MEDICATE .
--- NOTE | 2022-08-28 20:30 | NUR ---
ROUNDS , PT IS SLEEPING , WILL RE ASSESS , CALL LIGHT WITHIN REACH .
--- NOTE | 2022-08-28 21:00 | NUR ---
VISITS THE PT , TO RE ASSES THE PAIN - PT IS SLEEPING , I DID NOT BOTHER HIM . WILL RE VISIT , WILL RE ASSESS THE PAIN .
--- NOTE | 2022-08-28 21:39 | NUR ---
RE VISIT THE PT , PT . IS SLEEPING , I DID NOT BOTHER HIM , WILL RE VSIT AND WILL RE ASSESS THE PAIN , CALL LIGHT WITHIN REACH . WILL RETURN THE NORCO / TAB TO THE PYXIS .
--- NOTE | 2022-08-29 | NUR ---
ROUNDS , NO S/SX OF ACUTE DISTRESS NOTED , DENIES PAIN AT THIS TIME , WILL CONT. TO MONITOR , CALL LIGHT WITHIN REACH .
[2022-08-29] MEDS: VANCOMYCIN 1.25GM PREMIX 250 ML IV SCH ×2 (01:13→13:41)
--- NOTE | 2022-08-29 02:00 | NUR ---
ROUNDS , SLEEPING , EASILY AROUSABLE TO SOUNDS , AND TOUCH - DENIES PAIN AT THIS TIME .
[2022-08-29 04:00] VITALS: BP 110/76
--- NOTE | 2022-08-29 04:00 | NUR ---
awake , no complain made , will cont. to monitor , call light within reach .
--- NOTE | 2022-08-29 06:00 | NUR ---
awake , no s/sx of acute distress noted , will cont. to monitor , call light within reach .
[2022-08-29] MEDS: POTASSIUM CHL 20 MEQ/D5-1/2NS 1,000 ML IV SCH ×2 (07:27→13:42)
--- NOTE | 2022-08-29 07:30 | NUR ---
endorsed pt foe cont. of care , awake . call light within reach .
[2022-08-29 08:00] VITALS: BP 106/70
[2022-08-29] MEDS: HYDROXYZINE HYDROCHLORIDE 10 MG TAB PO SCH ×2 (09:30→13:40)
[2022-08-29] MEDS: levoFLOXacin 750 MG TAB PO SCH (09:30)
[2022-08-29] MEDS ORDERED: SULF-58 PO (10:00)
[2022-08-29] MEDS ORDERED: LEVO750T75 PO (10:02)
[2022-08-29] MEDS: ALGINATE ROPE MC SCH (13:42)
[2022-08-29] MEDS: HYDROcodone/APAP 10/325 MG 1 TAB TAB PO PRN (13:45)
--- NOTE | 2022-08-29 13:45 | NUR ---
Wound care with premedication . Given bed bath by FRUIT HARVEST MACHINE OPERATOR and student team members.
[2022-08-29 14:11] VITALS: BP 106/70
--- NOTE | 2022-08-29 14:17 | NUR ---
08/29/22 RD FOLLOW UP COMPLETED PLEASE REFER TO NUTRITION ASSESSMENT UNDER CARE ACTIVITY FOR ESTIMATED NUTRITIONAL NEEDS. 1. RECOMMEND [id number] DIET WITH PROSOURCE BID FOR WOUND SUPPORT -PROSOURCE BID PROVIDES 120 KCAL AND 30 GM PROTEIN DAILY 2. MONITOR PO INTAKE, WOUND, AND NUTRITION RELATED LAB VALUES 3. RD TO FOLLOW-UP 7 DAYS, LOW RISK REVIEWED BY LEESA ESPINOSA RD
--- NOTE | 2022-08-29 14:19 | NUR ---
Spoke with Justina at [facility] for report of patient . He will be assisgned room 35 A.
[2022-08-29 16:00] VITALS: BP 104/65
--- NOTE | 2022-08-29 16:37 | NUR ---
Intact 22 gauge intravenous catheter tip upon removal from patient left hand. Identification bracelet removal. Patient transportation to [facility] via 2 person ambulance team.
== END 2022-08-29 16:40 | DRG 710 ==
LOC: MED 17:50 → MMU 22:22 → MTU 22:51
PROVIDERS: ADMIT Family Medicine; ATTEND Family Medicine
PROC: 0JBM0ZZ Excision of Left Upper Leg Subcutaneous Tissue and Fascia, Open Approach (ICD-10-PCS; 2022-08-25)
PROC: 0SBB0ZZ Excision of Left Hip Joint, Open Approach (ICD-10-PCS; 2022-08-25)
PROC: 0W9F0ZZ Drainage of Abdominal Wall, Open Approach (ICD-10-PCS; 2022-08-25)
PROC: 3E1U38Z Irrigation of Joints using Irrigating Substance, Percutaneous Approach (ICD-10-PCS; principal; 2022-08-25 15:30)
DX: A41.9 Sepsis, unspecified organism (principal); E43 Unspecified severe protein-calorie malnutrition; K63.2 Fistula of intestine; I42.9 Cardiomyopathy, unspecified; G82.20 Paraplegia, unspecified; M00.9 Pyogenic arthritis, unspecified; E83.51 Hypocalcemia; E87.1 Hypo-osmolality and hyponatremia; M86.452 Chronic osteomyelitis with draining sinus, left femur; E11.69 Type 2 diabetes mellitus with other specified complication; I11.0 Hypertensive heart disease with heart failure; N39.0 Urinary tract infection, site not specified; L98.499 Non-pressure chronic ulcer of skin of other sites with unspecified severity; Z20.822 Contact with and (suspected) exposure to COVID-19; B19.10 Unspecified viral hepatitis B without hepatic coma; E78.5 Hyperlipidemia, unspecified; L02.416 Cutaneous abscess of left lower limb; M87.852 Other osteonecrosis, left femur; M87.851 Other osteonecrosis, right femur; M16.0 Bilateral primary osteoarthritis of hip; J44.9 Chronic obstructive pulmonary disease, unspecified; B96.5 Pseudomonas (aeruginosa) (mallei) (pseudomallei) as the cause of diseases classified elsewhere; I50.42 Chronic combined systolic (congestive) and diastolic (congestive) heart failure; Z86.711 Personal history of pulmonary embolism; Z86.14 Personal history of Methicillin resistant Staphylococcus aureus infection; Z68.30 Body mass index [BMI] 30.0-30.9, adult; I69.365 Other paralytic syndrome following cerebral infarction, bilateral
CPT/HCPCS: 36415; 71045; 73700; 80048; 80053; 80202; 81001; 83605; 83735; 83880; 84484; 85025; 85610; 85730; 87040; 87070; 87075; 87081; 87086; 87186; 87205; 93005; 93308; 96365; 99285; J0692; J0696; J1200; J1650; J2001; J2175; J2270; J2704; J3010; J3370; J3372; J3475; J3490; J7060

== ENCOUNTER 2022-09-03 13:33 | Emergency (ER) | payer BC ==
[~2022-09-03] VITALS: Ht 180.3 cm; Wt 81.6 kg
[~2022-09-03 13:33] MED LIST changes: -LACT10SO6 PO; +LEVO750T75 PO; -MEPERIDINE 50 MG/ML SYR ONE; -METH4TAB1 PO; -METROPOLOL PO; -PROPOFOL 200 MG/20 ML VIAL IV ONE; -SEVOFLURANE 250 ML BTL INH ONE; +SULF-58 PO; -VANC1PLA7 IV
[2022-09-03 13:34] VITALS: BP 116/70
--- NOTE | 2022-09-03 13:40 | NUR ---
BIBA BLS TO ER BED 10
--- NOTE | 2022-09-03 13:51 | NUR ---
PT MOVED TO ER BED 9
[2022-09-03 14:22] LABS: BASOPHILS # (AUTO) 0.1 K/uL (0.00-0.22); EOSINOPHILS # (AUTO) 0.2 K/uL (0-0.4); EOSINOPHILS % (AUTO) 2.3 % (0.0-4.0); HEMATOCRIT 37.3 % (36-52); MEAN CORPUSCULAR HEMOGLOBIN 25 pg (27-31); MEAN CORPUSCULAR HGB CONC 32 g/dL (33-37); MONOCYTES # (AUTO) 0.8 K/uL (0.8-1.0); NEUTROPHILS # (AUTO) 5.6 K/uL (1.8-7.7); NEUTROPHILS % (AUTO) 64.7 % (42.2-75.2); PLATELET COUNT (AUTO) 283 K/uL (140-450); RED BLOOD CELL COUNT(AUTO) 4.79 MIL/uL (4.20-6.10); RED CELL DISTRIBUTION WIDTH 15.8 % (11.6-13.7); WHITE BLOOD COUNT (AUTO) 8.6 K/uL (4.8-10.8)
[2022-09-03 14:32] LABS: ALBUMIN 2.5 g/dL (3.4-5.0); ANION GAP 8.6 (8-16); CARBON DIOXIDE 29.8 mmol/L (21-32); CREATININE 0.8 mg/dL (0.6-1.3); POTASSIUM 4.4 mmol/L (3.5-5.1); TOTAL BILIRUBIN 0.1 mg/dL (0.0-1.0)
[2022-09-03 16:38] VITALS: BP 125/68
--- NOTE | 2022-09-03 16:57 | NUR ---
spoke with zina from [facility] [place]. notified of pt's dc.
--- NOTE | 2022-09-03 17:15 | NUR ---
Patient discharged with v/s stable. Written and verbal after care instructions given and explained. Patient verbalized understanding. Ambulance Transport with to longterm. All questions addressed prior to discharge. Advised to follow up with PMD.
== END 2022-09-03 17:15 ==
LOC: MED 13:33
DX: M25.452 Effusion, left hip (principal); Z20.822 Contact with and (suspected) exposure to COVID-19; T84.52XA Infection and inflammatory reaction due to internal left hip prosthesis, initial encounter; J45.909 Unspecified asthma, uncomplicated; I50.9 Heart failure, unspecified; J44.9 Chronic obstructive pulmonary disease, unspecified; I10 Essential (primary) hypertension; E11.9 Type 2 diabetes mellitus without complications; Z79.4 Long term (current) use of insulin; Z79.899 Other long term (current) drug therapy
CPT/HCPCS: 36415; 72192; 80053; 85025; 85651; 86140; 99284

== ENCOUNTER 2022-10-22 14:27 | Inpatient (IN) | payer BC ==
[~2022-10-22] VITALS: Ht 180.3 cm; Wt 97.5 kg
[2022-10-22 14:35] VITALS: BP 133/87; PULSE 82; RESP 18; TEMP 97.8; O2SAT 96
--- NOTE | 2022-10-22 14:35 | NUR ---
[place] [facility] [place] PCP for multiple wound evaluation. Awake, alert oreinted x4, no fever, chills, no weakness. Addendum: 10/22/22 at 1559 by [email or web address] BIB Ambulance [place] [facility] [place] sent by PCP for multiple wound evaluation. Awake, alert oreinted x4, no fever, chills, no weakness. ED doctor at bedside to speak with patient at 14:40. Pt has history of a stroke within the last year in 2021, which left the patient with paralysis from the lower abd down to legs bilaterally, lost motor function, continues to have sensation in lower abd, hips and lower extreamites. Pt in a diaper, with history of incontience. Dressings on lower legs below knees bilat and left hip.
[2022-10-22 15:38] LABS: BASOPHILS # (AUTO) 0.1 K/uL (0.00-0.22); BASOPHILS % (AUTO) 0.9 % (0.0-2.0); EOSINOPHILS # (AUTO) 0.3 K/uL (0-0.4); EOSINOPHILS % (AUTO) 3.8 % (0.0-4.0); HEMATOCRIT 41.1 % (36-52); HEMOGLOBIN 13.6 g/dL (12.0-18.0); LYMPHOCYTES # (AUTO) 2.1 K/uL (2.0-11.5); LYMPHOCYTES % (AUTO) 27.7 % (20.5-51.1); MEAN CORPUSCULAR HEMOGLOBIN 26 pg (27-31); MEAN CORPUSCULAR HGB CONC 33 g/dL (33-37); MEAN CORPUSCULAR VOLUME 77.7 fL (80-94); MONOCYTES # (AUTO) 0.7 K/uL (0.8-1.0); MONOCYTES % (AUTO) 9.6 % (1.7-9.3); NEUTROPHILS # (AUTO) 4.4 K/uL (1.8-7.7); PLATELET COUNT (AUTO) 149 K/uL (140-450); RED CELL DISTRIBUTION WIDTH 19.1 % (11.6-13.7); WHITE BLOOD COUNT (AUTO) 7.6 K/uL (4.8-10.8)
[2022-10-22 15:49] LABS: ANION GAP 12.7 (8-16); CARBON DIOXIDE 26.7 mmol/L (21-32); CREATININE 0.7 mg/dL (0.6-1.3); POTASSIUM 4.4 mmol/L (3.5-5.1); TOTAL BILIRUBIN 0.2 mg/dL (0.0-1.0)
[2022-10-22] MEDS ORDERED: VANCOMYCIN 1,000 MG in DEXTROSE 5% 250 ML IV ONE (16:10)
--- NOTE | 2022-10-22 16:30 | NUR ---
Patient swabed for COVID nares bilat, test and taken to the lab.
[2022-10-22] MEDS ORDERED: HYDROcodone/APAP 5/325 MG 1 TAB TAB PO PRN ×3 (16:35→16:50)
[2022-10-22] MEDS ORDERED: ACETAMINOPHEN 325 MG TAB PO PRN ×3 (16:35→16:50)
[2022-10-22] MEDS ORDERED: VANCOMYCIN PER PHARMACY MC PRN (16:35)
--- NOTE | 2022-10-22 17:13 | NUR ---
Patient noted to have existing wounds upon arrival to ER. Photos taken of wound and placed in chart. Wound covered with dressing. Physician informed.
[2022-10-22] MEDS ORDERED: VANCOMYCIN 1,000 MG VIAL ONE (18:10)
[2022-10-22] MEDS: VANCOMYCIN 1,000 MG in DEXTROSE 5% 250 ML IV SCH (19:00)
--- NOTE | 2022-10-22 19:31 | NUR ---
PMH : BLIND OS, POOR VISION OD, NEEDS GLASSES, REPORTS (+) FOR HEP C
--- NOTE | 2022-10-22 20:17 | NUR ---
REPORT CALLED TO LALA COY
--- NOTE | 2022-10-22 20:19 | NUR ---
TO BED 110A VIA [facility]
[2022-10-22 20:25] VITALS: PULSE 89; RESP 18; O2SAT 95
[2022-10-22] MEDS: ZOLPIDEM 5 MG TAB PO SCH (21:00)
--- NOTE | 2022-10-22 21:00 | NUR ---
PT REFUSED AMBIEN MEDICATION, PT STATED HE HAS NO PROBLEM WITH SLEEP.
[2022-10-23] MEDS: VANCOMYCIN 1,000 MG in DEXTROSE 5% 250 ML IV SCH ×2 (02:09→12:01)
[2022-10-23 04:00] VITALS: BP 113/79; PULSE 75; RESP 18; TEMP 97.2; O2SAT 96
[2022-10-23 06:35] LABS: MAGNESIUM 1.9 mg/dL (1.8-2.4)
[2022-10-23 06:38] LABS: ANION GAP 10.5 (8-16); CARBON DIOXIDE 27.6 mmol/L (21-32); CREATININE 0.6 mg/dL (0.6-1.3); POTASSIUM 4.1 mmol/L (3.5-5.1)
[2022-10-23 06:50] LABS: BASOPHILS % (AUTO) 0.5 % (0.0-2.0); EOSINOPHILS # (AUTO) 0.3 K/uL (0-0.4); EOSINOPHILS % (AUTO) 3.7 % (0.0-4.0); HEMATOCRIT 39.8 % (36-52); HEMOGLOBIN 13.4 g/dL (12.0-18.0); LYMPHOCYTES # (AUTO) 1.9 K/uL (2.0-11.5); LYMPHOCYTES % (AUTO) 27.5 % (20.5-51.1); MEAN CORPUSCULAR HEMOGLOBIN 26 pg (27-31); MEAN CORPUSCULAR HGB CONC 34 g/dL (33-37); MONOCYTES # (AUTO) 0.7 K/uL (0.8-1.0); MONOCYTES % (AUTO) 9.5 % (1.7-9.3); NEUTROPHILS # (AUTO) 4.1 K/uL (1.8-7.7); NEUTROPHILS % (AUTO) 58.8 % (42.2-75.2); PLATELET COUNT (AUTO) 144 K/uL (140-450); RED BLOOD CELL COUNT(AUTO) 5.17 MIL/uL (4.20-6.10); WHITE BLOOD COUNT (AUTO) 6.9 K/uL (4.8-10.8)
--- NOTE | 2022-10-23 07:08 | NUR ---
receive the patient from the in store representative rn in rm 110A aox4 admitting diagnsosi of left hip cellulitis . will contniue with antibiotics therapy . will continue to monitor
[2022-10-23 08:00] VITALS: BP 114/77; PULSE 78; RESP 18; TEMP 97.8; O2SAT 96
[2022-10-23 08:10] VITALS: PULSE 79; RESP 20
--- NOTE | 2022-10-23 09:06 | NUR ---
PATIENT HAS BEEN SCREENED AND CATEGORIZED HIGH NUTRITION RISK. PATIENT WILL BE SEEN WITHIN 1-2 DAYS OF ADMISSION. 10/23/22-10/24/22 FNS CONSULT FOR WOUNDS/PRESSURE ULCER RECEIVED ON 10/23/22. [address]
--- NOTE | 2022-10-23 11:07 | NUR ---
DC PLANN[age] YRS OLD MALE PATIENT WAS ADMITTED FROM [facility] WITH A DX OF CELLULITIS. PATIENT HAS A HX OF ASTHMA, CHF,, COPD, DM, HTN, PAD, HEP C , PARAPLEGIC AND CVA. CT PELVIC SHOWED INFLAMMATORY CHANGES IN THE ANTERIOR LEFT HIP SMALL SOFT TISSUE ABSCESS. ADMINISTERED IVF, IV ABX VANCOMYCIN AND CONTINUED HOME MEDS. CONSULTED WITH ID AND WOUND CARE. DC PLAN TO RETURN TO [facility] WHEN STABLE. CM TO FOLLOW Addendum: 10/24/22 at 1138 by PETRONA PORTILLO CM RECEIVED ORDER FOR PATIENT TO GO BACK TO SNF FOR CONTINUE OF CARE. FAXED ALL PAPERWORK TO [facility], SPOKE WITH DARINEL LOCATED AT [address] [place] [id number].PATIENT WILL BE GOING TO ROOM [facility] UNDER DR ROCHA. TRANSPORTATION WAS ARRANGED WITH [employer] CALL THE CAR WITH A 1700 PARKING GARAGE MANAGER TIME. TRIP CONFIRMATION #[id number] Addendum: 10/24/22 at 1139 by PETRONA PORTILLO CM NURSE MARGA AND SISTER JESSICA AWARE OF THE ABOVE INFORMATION.
--- NOTE | 2022-10-23 14:26 | NUR ---
10/23/22 RD INITIAL ASSESSMENT COMPLETED PLEASE REFER TO NUTRITION ASSESSMENT UNDER CARE ACTIVITY FOR ESTIMATED NUTRITIONAL NEEDS. 1. CONTINUE CARDIAC DIET TOLERATED AND ADD CCHO 60 GRAM DIET WELL. 2. RD RECOMMENDS PROSOURCE BID FOR WOUNDS, THIS WILL PROVIDE 120 CALORIES AND 30 GRAMS OF PROTEIN. 3. RD ENCOURAGES PATIENT TO FOLLOW DIABETIC EDUCATION ONCE HE LEAVES THE HOSPITAL. 4. RD TO FOLLOW-UP 7 DAYS, LOW RISK WILLIAM MATTHEWS RD
[2022-10-23 16:00] VITALS: BP 131/87; PULSE 88; RESP 18; TEMP 98.7; O2SAT 96
--- NOTE | 2022-10-23 19:08 | NUR ---
will endorse to night warehouse selector rn for continuity of care
--- NOTE | 2022-10-23 19:30 | NUR ---
RECEIVED REPORT FROM DAY SHIFT RN FOR CONTINUITY OF CARE. PT IS RESTING IN BED. AWAKE AND ALERT ON RA SATING 98%. PT DENIES ANY PAIN AT THIS TIME. PT HAS WOUND ON LEFT HIP WITH DRESSING. POC DISCUSSED. BED AT THE LOWEST POSITION. HEAD OF THE BED RAISED. WILL CONTINUE TO MONITOR THE PT.
[2022-10-23 20:00] VITALS: BP 122/80; PULSE 100; RESP 18; TEMP 98.9; O2SAT 96
[2022-10-23] MEDS: ZOLPIDEM 5 MG TAB PO SCH (21:11)
--- NOTE | 2022-10-24 00:10 | NUR ---
OBSERVED PT. PT IS AWAKE NOT IN ANY DISTRESS. PT DENIES ANY PAIN. HAS NO COMPLAINS. WILL CONTINUE TO MONITOR THE PT.
--- NOTE | 2022-10-24 07:17 | NUR ---
ENDORSED PT TO DAY SHIFT NURSE FOR CONTINUITY OF CARE. PT IS STABLE.
[2022-10-24 08:00] VITALS: BP 130/84; PULSE 83; RESP 18; TEMP 98; O2SAT 94
[2022-10-24 09:08] LABS: BASOPHILS % (AUTO) 0.4 % (0.0-2.0); EOSINOPHILS # (AUTO) 0.2 K/uL (0-0.4); EOSINOPHILS % (AUTO) 2.6 % (0.0-4.0); HEMATOCRIT 41.2 % (36-52); HEMOGLOBIN 13.3 g/dL (12.0-18.0); LYMPHOCYTES % (AUTO) 28.4 % (20.5-51.1); MEAN CORPUSCULAR HEMOGLOBIN 26 pg (27-31); MEAN CORPUSCULAR HGB CONC 32 g/dL (33-37); MEAN CORPUSCULAR VOLUME 79.1 fL (80-94); MONOCYTES # (AUTO) 0.7 K/uL (0.8-1.0); MONOCYTES % (AUTO) 9.3 % (1.7-9.3); NEUTROPHILS # (AUTO) 4.3 K/uL (1.8-7.7); NEUTROPHILS % (AUTO) 59.3 % (42.2-75.2); PLATELET COUNT (AUTO) 142 K/uL (140-450); RED BLOOD CELL COUNT(AUTO) 5.21 MIL/uL (4.20-6.10); RED CELL DISTRIBUTION WIDTH 19.1 % (11.6-13.7); WHITE BLOOD COUNT (AUTO) 7.2 K/uL (4.8-10.8)
[2022-10-24 09:22] LABS: ANION GAP 9.7 (8-16); CARBON DIOXIDE 28.2 mmol/L (21-32); CREATININE 0.7 mg/dL (0.6-1.3); POTASSIUM 3.9 mmol/L (3.5-5.1)
[2022-10-24 09:25] LABS: MAGNESIUM 1.8 mg/dL (1.8-2.4); PHOSPHORUS 3.7 mg/dL (2.5-4.9)
[2022-10-24] MEDS ORDERED: IV Vancomycin (10:31)
[2022-10-24 10:47] VITALS: BP 130/84; PULSE 83; RESP 18; TEMP 98
[2022-10-24 14:34] VITALS: O2SAT 94
--- NOTE | 2022-10-24 14:41 | NUR ---
WOUND CARE NOTE: PT. ADMITTED WITH CHRONIC SURGICAL WOUND TO LEFT GROIN FULL THICKNESS SKIN LOSS 5X2X0.5CM WOUND BED 100% RED GRANULATION TISSUE, MOIST, NO ODOR, WOUND EDGE FLAT, BETO-WOUND SKIN MASD RED, RASHES, HEALED SCAR TISSUE, PAIN 0/10. BLE POSTERIOR LOWER EXTREMITIES CHRONIC STASIS ULCERS: RLE 15X3CM SUPERFICIAL DEPTH HEALING PINK TISSUE, MOIST, NO ODOR, BETO-WOUND SKIN DRY INTACT. LLE 10X4X0.1CM 100% PINK TISSUE, MOIST. NO ODOR, BETO-WOUND SKIN DRY INTACT. POC DISCUSSED WITH PT. PT IS AAX4, PENDING CT RESULT AND SURGEON ,ID CONSULTS. PT. WITH LOW FLORENTIN SCALE AT HIGH RISK, CONTINUE TO FOLLOW PRESSURE INJURY PREVENTION INTERVENTIONS. RECOMMENDATIONS: -CLEANSE LEFT GROIN SURGICAL WOUND AND BLE CALVES WOUNDS WITH NS, PAT DRY, APPLY ALGINATE DRESSING, COVER WITH COMPOSITE DRESSING QD AND PRN IF SOILING -POSITIONING: TURN AND REPOSITION PATIENT Q 2H OR SOONER USE PILLOWS TO KEEP BONY PROMINENCES FROM DIRECT CONTACT WITH SURFACES USE REPOSITIONING WEDGES TO PROVIDE 30-DEGREE ANGLE FOR SIDE LYING POSITIONS OFFLOADING OR FOAM DRESSING TO ALL TUBING TO PREVENT MEDICAL DEVICES RELATED PRESSURE INJURY -RE-EVALUATING AND MANAGING INCONTINENCE MONITOR SKIN CONDITION DURING POSITION CHANGE DO NOT MASSAGE REDNESS, BONY PROMINENCES FREQUENT BETO-CARE AND PROVIDE BARRIER CREAMS PRN IF SOILING MOISTURE CONTROL BY MELVIN CATH OR ABSORBENT PAD TO WICK AND HOLD MOISTURE KEEP SKIN DRY AND PROTECT FROM FRICTION -MANAGE FRICTION/SHEAR/MOBILITY KEEP HOB AT THE LOWEST LEVEL OF ELEVATION NO MORE THAN 30 DEGREE UNLESS OTHERWISE CONTRAINDICATED USE LIFT SHEET OR TRANSFER DEVICE TO MOVE PATIENT AND PREVENT LATERAL SHEER. PROTECT HEELS, ELBOWS BONY PROMINENCES WITH SKIN BERRIES OR FOAM DRESSING IF EXPOSED TO FRICTION OFFLOAD BILATERAL HEELS BY PLACING PILLOWS UNDER CALVES AT ALL TIMES, UNLESS OTHERWISE CONTRAINDICATED -PRESSURE REDISTRIBUTION SURFACE THERAPY JUAN ISOFLEX MATTRESS -NUTRITION: PLEASE FOLLOW RD RECOMMENDATIONS AND OFFER NUTRITION SUPPLEMENTS IF ORDERED. PLEASE CONTACT WOUND CARE NURSE FOR ANY QUESTION AND CHANGE OF WOUND CONDITION.
[2022-10-24] MEDS ORDERED: ALGINATE ROPE MC PRN (14:45)
[2022-10-24 15:18] VITALS: O2SAT 98
[2022-10-24] MEDS ORDERED: VANCOMYCIN 1,000 MG in DEXTROSE 5% 250 ML IV SCH (15:39)
[2022-10-24] MEDS ORDERED: VANCOMYCIN 1,500 MG in DEXTROSE 5% 500 ML IV SCH (16:00)
--- NOTE | 2022-10-24 16:45 | NUR ---
CALLED AND GAVE REPORT TO NURSE [place]UL [place] [facility] SCHEDULED FOR PICKUP AT 1700. ATTEMPTED TO CONTACT PT FAMILY 2X, NO ANSWER. CASE MANAGEMENT ALREADY NOTIFIED PT FAMILY BEFOREHAND. INFORMED PT OF DISCHARGE, PAPERWORK SIGNED. PT CHANGED, IV TO LEFT AC REMOVED - IV TO RIGHT HAND KEPT (PER FACILITY REQUEST). ID BAND REMOVED.
--- NOTE | 2022-10-24 17:30 | NUR ---
PT PICKED UP BY TRANSPORTATION. PT STABLE UPON DISCHARGE. LEFT UNIT VIA GURNEY.
[2022-10-25] MEDS ORDERED: ALGINATE ROPE MC SCH (13:00)
== END 2022-10-24 17:35 | DRG 383 ==
LOC: MED 14:27 → MMU 16:43 → MTU 18:21
PROVIDERS: ADMIT Student in an Organized Health Care Education/Training Program; ATTEND Student in an Organized Health Care Education/Training Program
DX: L03.116 Cellulitis of left lower limb (principal); G82.20 Paraplegia, unspecified; I42.9 Cardiomyopathy, unspecified; E44.0 Moderate protein-calorie malnutrition; S71.002A Unspecified open wound, left hip, initial encounter; E11.51 Type 2 diabetes mellitus with diabetic peripheral angiopathy without gangrene; I50.9 Heart failure, unspecified; Z20.822 Contact with and (suspected) exposure to COVID-19; I11.0 Hypertensive heart disease with heart failure; X58.XXXA Exposure to other specified factors, initial encounter; J44.9 Chronic obstructive pulmonary disease, unspecified; B19.20 Unspecified viral hepatitis C without hepatic coma; Z86.711 Personal history of pulmonary embolism; Z79.01 Long term (current) use of anticoagulants; Y93.89 Activity, other specified; Y92.89 Other specified places as the place of occurrence of the external cause; Y99.8 Other external cause status; I69.369 Other paralytic syndrome following cerebral infarction affecting unspecified side; Z68.30 Body mass index [BMI] 30.0-30.9, adult
CPT/HCPCS: 36415; 72193; 80048; 80053; 80202; 83605; 83735; 84100; 85025; 85651; 86140; 87040; 87081; 96365; 99285; J3370; J7060; Q9967

== ENCOUNTER 2023-03-27 14:19 | Inpatient (IN) | payer BC, MEDICAID ==
[~2023-03-27] VITALS: Ht 182.9 cm; Wt 112.9 kg
[2023-03-27 14:19] VITALS: BP 137/77; PULSE 99; RESP 20; TEMP 98.1; O2SAT 98
[~2023-03-27 14:19] MED LIST changes: +IV Vancomycin; -LEVO750T75 PO
[2023-03-27] MEDS ORDERED: FUROSEMIDE 40 MG/4 ML VIAL IVP ONE (14:55)
[2023-03-27 15:28] LABS: BASOPHILS # (AUTO) 0.1 K/uL (0.00-0.22); BASOPHILS % (AUTO) 0.9 % (0.0-2.0); EOSINOPHILS # (AUTO) 0.3 K/uL (0-0.4); EOSINOPHILS % (AUTO) 3.6 % (0.0-4.0); HEMATOCRIT 46.5 % (36-52); HEMOGLOBIN 15.4 g/dL (12.0-18.0); LYMPHOCYTES # (AUTO) 1.9 K/uL (2.0-11.5); LYMPHOCYTES % (AUTO) 19.9 % (20.5-51.1); MEAN CORPUSCULAR HEMOGLOBIN 27 pg (27-31); MEAN CORPUSCULAR HGB CONC 33 g/dL (33-37); MEAN CORPUSCULAR VOLUME 81.8 fL (80-94); MONOCYTES # (AUTO) 1.1 K/uL (0.8-1.0); MONOCYTES % (AUTO) 11.2 % (1.7-9.3); NEUTROPHILS % (AUTO) 64.4 % (42.2-75.2); PLATELET COUNT (AUTO) 177 K/uL (140-450); RED BLOOD CELL COUNT(AUTO) 5.68 MIL/uL (4.20-6.10); RED CELL DISTRIBUTION WIDTH 17.2 % (11.6-13.7); WHITE BLOOD COUNT (AUTO) 9.4 K/uL (4.8-10.8)
[2023-03-27 15:49] LABS: ALBUMIN 3.3 g/dL (3.4-5.0); ANION GAP 11.3 (8-16); CALCIUM 8.7 mg/dL (8.5-10.1); CARBON DIOXIDE 29.8 mmol/L (21-32); CREATININE 0.9 mg/dL (0.6-1.3); POTASSIUM 4.1 mmol/L (3.5-5.1); TOTAL BILIRUBIN 0.3 mg/dL (0.0-1.0); TOTAL PROTEIN, SERUM 8.3 g/dL (6.4-8.2)
[2023-03-27] MEDS ORDERED: ACET-2619 PO (15:58)
[2023-03-27] MEDS ORDERED: ASCO500T95 PO (16:00)
[2023-03-27] MEDS ORDERED: SULF-58 PO (16:01)
[2023-03-27] MEDS ORDERED: BISA-218 RC (16:04)
[2023-03-27] MEDS ORDERED: DOCU-3 PO (16:09)
[2023-03-27] MEDS ORDERED: GABA-636 PO (16:12)
[2023-03-27] MEDS ORDERED: HYD1C TP (16:13)
[2023-03-27] MEDS ORDERED: KETO2FOA2 TP (16:29)
[2023-03-27] MEDS ORDERED: [UNRECOGNIZED DRUG - CODE] PO (16:31)
[2023-03-27] MEDS ORDERED: FURO-570 PO (16:32)
[2023-03-27] MEDS ORDERED: MAGN400S60 PO (16:34)
[2023-03-27 19:42] VITALS: O2SAT 96
[2023-03-27] MEDS ORDERED: bisacodyL 10 MG SUPP RC PRN (20:10)
[2023-03-27] MEDS ORDERED: ONDANSETRON 4 MG/2 ML VIAL IVP PRN (20:10)
[2023-03-27] MEDS ORDERED: LORazepam 1 MG TAB PO PRN (20:10)
[2023-03-27] MEDS ORDERED: DEXTROSE 50% 50 ML SYR IVP PRN (20:15)
[2023-03-27] MEDS ORDERED: INSULIN LISPRO SLIDING SCALE 100 UNITS/ML VIAL SUBQ PRN (20:15)
[2023-03-27] MEDS ORDERED: MORPHINE SULFATE 2 MG/ML SYR IVP PRN (20:20)
[2023-03-27] MEDS ORDERED: CLONIDINE HYDROCHLORIDE 0.1 MG TAB PO PRN (20:20)
[2023-03-27] MEDS ORDERED: HYDROcodone/APAP 5/325 MG 1 TAB TAB PO PRN (20:20)
[2023-03-27] MEDS ORDERED: ACETAMINOPHEN EXTRA STRENGTH 500 MG TAB PO PRN (20:20)
[2023-03-27 21:41] VITALS: O2SAT 98
[2023-03-27] MEDS: ASCORBIC ACID 500 MG TAB PO SCH (21:48)
[2023-03-27] MEDS: BLOOD GLUCOSE MONITORING 1 DEV DEV FS SCH (21:57)
[2023-03-27 23:41] VITALS: O2SAT 96
[2023-03-28] VITALS (7 sets, daily range): BP systolic 112–118; BP diastolic 73–83; PULSE 75–91; RESP 15–19; TEMP 97.6–98.5; O2SAT 94–97
[2023-03-28] MEDS: BLOOD GLUCOSE MONITORING 1 DEV DEV FS SCH ×4 (07:44→20:21)
[2023-03-28 07:49] LABS: BASOPHILS # (AUTO) 0.1 K/uL (0.00-0.22); BASOPHILS % (AUTO) 0.8 % (0.0-2.0); EOSINOPHILS # (AUTO) 0.3 K/uL (0-0.4); EOSINOPHILS % (AUTO) 3.1 % (0.0-4.0); HEMATOCRIT 46.4 % (36-52); HEMOGLOBIN 15.4 g/dL (12.0-18.0); LYMPHOCYTES % (AUTO) 21.4 % (20.5-51.1); MEAN CORPUSCULAR HEMOGLOBIN 27 pg (27-31); MEAN CORPUSCULAR HGB CONC 33 g/dL (33-37); MEAN CORPUSCULAR VOLUME 81.9 fL (80-94); MONOCYTES % (AUTO) 10.4 % (1.7-9.3); NEUTROPHILS # (AUTO) 5.9 K/uL (1.8-7.7); NEUTROPHILS % (AUTO) 64.3 % (42.2-75.2); PLATELET COUNT (AUTO) 175 K/uL (140-450); RED BLOOD CELL COUNT(AUTO) 5.66 MIL/uL (4.20-6.10); RED CELL DISTRIBUTION WIDTH 17.5 % (11.6-13.7); WHITE BLOOD COUNT (AUTO) 9.2 K/uL (4.8-10.8)
[2023-03-28 08:09] LABS: ANION GAP 12.6 (8-16); CALCIUM 8.8 mg/dL (8.5-10.1); CARBON DIOXIDE 28.1 mmol/L (21-32); CREATININE 0.8 mg/dL (0.6-1.3); POTASSIUM 3.7 mmol/L (3.5-5.1)
[2023-03-28] MEDS: PANTOPRAZOLE 40 MG INJ VIAL IVP SCH (09:42)
[2023-03-28] MEDS: FUROSEMIDE 40 MG/4 ML VIAL IVP SCH ×2 (09:43→20:23)
[2023-03-28] MEDS: GABAPENTIN 100 MG CAP PO SCH (09:45)
[2023-03-28] MEDS: ASCORBIC ACID 500 MG TAB PO SCH ×2 (09:46→20:24)
[2023-03-28] MEDS: DOCUSATE SODIUM 100 MG GELCAP PO SCH (09:46)
[2023-03-29 04:00] VITALS: BP 144/74; PULSE 85; RESP 17; TEMP 97.2; O2SAT 94
[2023-03-29] MEDS: BLOOD GLUCOSE MONITORING 1 DEV DEV FS SCH ×3 (06:30→17:13)
[2023-03-29 07:11] LABS: BASOPHILS # (AUTO) 0.1 K/uL (0.00-0.22); BASOPHILS % (AUTO) 0.8 % (0.0-2.0); EOSINOPHILS # (AUTO) 0.2 K/uL (0-0.4); EOSINOPHILS % (AUTO) 2.8 % (0.0-4.0); HEMATOCRIT 47.1 % (36-52); HEMOGLOBIN 15.4 g/dL (12.0-18.0); LYMPHOCYTES # (AUTO) 1.8 K/uL (2.0-11.5); LYMPHOCYTES % (AUTO) 21.9 % (20.5-51.1); MEAN CORPUSCULAR HEMOGLOBIN 27 pg (27-31); MEAN CORPUSCULAR HGB CONC 33 g/dL (33-37); MEAN CORPUSCULAR VOLUME 82.7 fL (80-94); MONOCYTES # (AUTO) 0.7 K/uL (0.8-1.0); MONOCYTES % (AUTO) 8.5 % (1.7-9.3); NEUTROPHILS # (AUTO) 5.4 K/uL (1.8-7.7); PLATELET COUNT (AUTO) 169 K/uL (140-450); WHITE BLOOD COUNT (AUTO) 8.2 K/uL (4.8-10.8)
[2023-03-29 07:50] LABS: ANION GAP 10.8 (8-16); CALCIUM 8.7 mg/dL (8.5-10.1); CARBON DIOXIDE 29.7 mmol/L (21-32); CREATININE 0.8 mg/dL (0.6-1.3); POTASSIUM 3.5 mmol/L (3.5-5.1)
[2023-03-29 08:00] VITALS: BP 124/73; PULSE 82; RESP 18; TEMP 97.5; O2SAT 82
[2023-03-29] MEDS: FUROSEMIDE 40 MG/4 ML VIAL IVP SCH (08:59)
[2023-03-29] MEDS: PANTOPRAZOLE 40 MG INJ VIAL IVP SCH (09:03)
[2023-03-29] MEDS: GABAPENTIN 100 MG CAP PO SCH (09:03)
[2023-03-29] MEDS: DOCUSATE SODIUM 100 MG GELCAP PO SCH (09:04)
[2023-03-29 12:00] VITALS: BP 124/73; PULSE 82; RESP 18; TEMP 97.5; O2SAT 82
[2023-03-29] MEDS: ASCORBIC ACID 500 MG TAB PO SCH (14:31)
[2023-03-29 16:00] VITALS: BP 124/73; PULSE 82; RESP 18; TEMP 97.5; O2SAT 82
== END 2023-03-29 17:40 | DRG 383 ==
LOC: MED 14:19 → MMU 20:06 → MTU 03-28 06:21
PROVIDERS: ADMIT Family Medicine; ATTEND Family Medicine
DX: L03.116 Cellulitis of left lower limb (principal); E44.0 Moderate protein-calorie malnutrition; G82.20 Paraplegia, unspecified; E11.22 Type 2 diabetes mellitus with diabetic chronic kidney disease; L03.115 Cellulitis of right lower limb; J44.9 Chronic obstructive pulmonary disease, unspecified; I12.9 Hypertensive chronic kidney disease with stage 1 through stage 4 chronic kidney disease, or unspecified chronic kidney disease; N18.9 Chronic kidney disease, unspecified; Z79.899 Other long term (current) drug therapy; Z86.73 Personal history of transient ischemic attack (TIA), and cerebral infarction without residual deficits; Z68.33 Body mass index [BMI] 33.0-33.9, adult
CPT/HCPCS: 36415; 71045; 74018; 80048; 80053; 82948; 83036; 83880; 84484; 85025; 87081; 93005; 93970; 96374; 99285; C9113; J1940; Q0092

== ENCOUNTER 2023-11-13 19:14 | Inpatient (IN) | payer MEDICAID ==
[~2023-11-13] VITALS: Ht 180.3 cm; Wt 114.3 kg
[~2023-11-13 19:14] MED LIST changes: +ACET-2619 PO; +BISA-279 RC; +CICL0.777 TP; +D50SYR IV; +DOCU-3 PO; +FURO-570 PO; +GABA-636 PO; +GABA100C PO; +HYD1C TP; -IV Vancomycin; +MAGN400S60 PO; +NA P133E2 RC; +PIPE1SOL IV; -SULF-58 PO; +[UNRECOGNIZED DRUG - CODE] TP
[2023-11-13 19:18] VITALS: BP 127/83; PULSE 109; RESP 20; TEMP 98.6; O2SAT 96
[2023-11-13 19:30] VITALS: O2SAT 94
[2023-11-13 20:44] LABS: BASOPHILS # (AUTO) 0.1 K/uL (0.00-0.22); BASOPHILS % (AUTO) 0.6 % (0.0-2.0); EOSINOPHILS # (AUTO) 0.4 K/uL (0-0.4); EOSINOPHILS % (AUTO) 2.9 % (0.0-4.0); HEMATOCRIT 42.9 % (36-52); HEMOGLOBIN 13.8 g/dL (12.0-18.0); LYMPHOCYTES # (AUTO) 1.7 K/uL (2.0-11.5); LYMPHOCYTES % (AUTO) 11.8 % (20.5-51.1); MEAN CORPUSCULAR HEMOGLOBIN 26 pg (27-31); MEAN CORPUSCULAR HGB CONC 32 g/dL (33-37); MEAN CORPUSCULAR VOLUME 80.6 fL (80-94); MONOCYTES # (AUTO) 1.2 K/uL (0.8-1.0); MONOCYTES % (AUTO) 8.3 % (1.7-9.3); NEUTROPHILS % (AUTO) 76.4 % (42.2-75.2); PLATELET COUNT (AUTO) 256 K/uL (140-450); RED BLOOD CELL COUNT(AUTO) 5.32 MIL/uL (4.20-6.10); RED CELL DISTRIBUTION WIDTH 15.1 % (11.6-13.7); WHITE BLOOD COUNT (AUTO) 14.4 K/uL (4.8-10.8)
[2023-11-13 20:54] LABS: INR 1.04 (0.8-1.2); PROTHROMBIN TIME 10.9 secs (10.8-13.4)
[2023-11-13 20:58] LABS: CALCIUM 8.9 mg/dL (8.5-10.1); CARBON DIOXIDE 33.9 mmol/L (21-32); CREATININE 0.9 mg/dL (0.6-1.3); POTASSIUM 3.9 mmol/L (3.5-5.1)
[2023-11-13] MEDS: NACL 0.9% 1,000 ML IV SCH ×2 (21:10→21:55)
[2023-11-13 21:13] LABS: LACTIC ACID 1.5 mmol/L (0.4-2.0)
[2023-11-13 21:17] LABS: ALANINE AMINOTRANSFERASE 24 U/L (12-78); ALBUMIN 2.6 g/dL (3.4-5.0); ALKALINE PHOSPHATASE 60 U/L (50-136); ASPARTATE AMINOTRANSFERASE 28 U/L (15-37); BILIRUBIN,DIRECT 0.1 mg/dL (0.0-0.3); CREATINE KINASE, TOTAL 53 U/L (39-308); TOTAL BILIRUBIN 0.3 mg/dL (0.0-1.0); TOTAL PROTEIN, SERUM 8.2 g/dL (6.4-8.2)
[2023-11-13] MEDS ORDERED: CEFEPIME 1,000 MG VIAL ONE (21:34)
[2023-11-13] MEDS ORDERED: VANCOMYCIN 1,000 MG VIAL ONE (21:35)
[2023-11-13] MEDS: CEFEPIME 1,000 MG in DEXTROSE 5% 50 ML IV ONE (21:47)
[2023-11-13] MEDS: VANCOMYCIN 1,000 MG in DEXTROSE 5% 250 ML IV ONE (21:51)
[2023-11-13] MEDS ORDERED: VANCOMYCIN PER PHARMACY MC PRN (21:55)
[2023-11-13] MEDS ORDERED: LORazepam 1 MG TAB PO PRN (21:55)
[2023-11-13] MEDS ORDERED: hydrALAZINE 20 MG/ML VIAL IVP PRN (21:55)
[2023-11-13] MEDS ORDERED: ACETAMINOPHEN 325 MG TAB PO PRN (21:55)
[2023-11-13] MEDS ORDERED: AZIT250T3 PO (22:10)
[2023-11-13] MEDS ORDERED: PRED20TA5 PO (22:11)
[2023-11-13] MEDS ORDERED: ALBU0.0912 INH (22:11)
[2023-11-14 00:06] LABS: APPEARANCE,URINE CLEAR (CLEAR); BILIRUBIN,URINE NEGATIVE (NEGATIVE); BLOOD, URINE NEGATIVE (NEGATIVE); COLOR,URINE YELLOW (YELLOW); LEUKOCYTE ESTERASE ,URINE NEGATIVE (NEGATIVE); NITRITE, URINE NEGATIVE (NEGATIVE); PH,URINE 6.5 (5.0-9.0); PROTEIN,URINE NEGATIVE (NEGATIVE); UGLUCOSE NEGATIVE (NEGATIVE); UROBILINOGEN,URINE 0.2 EU/dL (0.2 - 1)
[2023-11-14] MEDS: ZOLPIDEM 5 MG TAB PO PRN (04:51)
[2023-11-14] MEDS ORDERED: PIPERACILLIN/TAZOBACTAM 3.375 GM VIAL IV ONE ×2 (04:59)
[2023-11-14] MEDS: PIPERACILLIN/TAZOBACTAM 3.375 GM in DEXTROSE 5% 50 ML IV SCH (05:15)
[2023-11-14] MEDS: DOCUSATE SODIUM 100 MG GELCAP PO SCH (08:45)
[2023-11-14] MEDS: PANTOPRAZOLE 40 MG INJ VIAL IVP SCH (08:45)
[2023-11-14 09:23] LABS: BASOPHILS # (AUTO) 0.1 K/uL (0.00-0.22); BASOPHILS % (AUTO) 0.5 % (0.0-2.0); EOSINOPHILS # (AUTO) 0.5 K/uL (0-0.4); HEMATOCRIT 40.2 % (36-52); LYMPHOCYTES # (AUTO) 1.6 K/uL (2.0-11.5); LYMPHOCYTES % (AUTO) 12.7 % (20.5-51.1); MEAN CORPUSCULAR HEMOGLOBIN 26 pg (27-31); MEAN CORPUSCULAR HGB CONC 32 g/dL (33-37); MEAN CORPUSCULAR VOLUME 80.1 fL (80-94); MONOCYTES # (AUTO) 1.3 K/uL (0.8-1.0); NEUTROPHILS # (AUTO) 9.4 K/uL (1.8-7.7); NEUTROPHILS % (AUTO) 72.8 % (42.2-75.2); PLATELET COUNT (AUTO) 238 K/uL (140-450); RED BLOOD CELL COUNT(AUTO) 5.02 MIL/uL (4.20-6.10); RED CELL DISTRIBUTION WIDTH 15.3 % (11.6-13.7); WHITE BLOOD COUNT (AUTO) 12.9 K/uL (4.8-10.8)
[2023-11-14 09:55] LABS: ALBUMIN 2.3 g/dL (3.4-5.0); CREATININE 0.8 mg/dL (0.6-1.3)
[2023-11-14 10:12] LABS: ANION GAP 7.9 (8-16); CARBON DIOXIDE 30.3 mmol/L (21-32); POTASSIUM 3.2 mmol/L (3.5-5.1); TOTAL BILIRUBIN 0.5 mg/dL (0.0-1.0); TOTAL PROTEIN, SERUM 7.3 g/dL (6.4-8.2)
[2023-11-14] MEDS: VANCOMYCIN 1,000 MG in DEXTROSE 5% 250 ML IV SCH (10:12)
[2023-11-14 10:13] LABS: CALCIUM 8.4 mg/dL (8.5-10.1)
[2023-11-14 16:00] VITALS: BP 114/71; PULSE 101; RESP 18; TEMP 98.5; O2SAT 96
[2023-11-14] MEDS: ATORVASTATIN 80 MG TAB PO SCH (16:57)
[2023-11-14 20:00] VITALS: BP 128/70; PULSE 84; RESP 18; TEMP 98.6; O2SAT 97
[2023-11-14] MEDS: FUROSEMIDE 40 MG TAB PO SCH (22:47)
[2023-11-14] MEDS: POTASSIUM CHLORIDE 10 MEQ TABER PO ONE (22:48)
[2023-11-15] VITALS: BP 115/63; PULSE 77; RESP 18; TEMP 98.4; O2SAT 97
[2023-11-15 04:00] VITALS: BP 114/60; PULSE 70; RESP 18; TEMP 98.1; O2SAT 97
[2023-11-15 07:22] LABS: BASOPHILS # (AUTO) 0.1 K/uL (0.00-0.22); BASOPHILS % (AUTO) 0.9 % (0.0-2.0); EOSINOPHILS # (AUTO) 0.5 K/uL (0-0.4); EOSINOPHILS % (AUTO) 3.4 % (0.0-4.0); HEMATOCRIT 38.8 % (36-52); HEMOGLOBIN 12.4 g/dL (12.0-18.0); LYMPHOCYTES # (AUTO) 1.7 K/uL (2.0-11.5); LYMPHOCYTES % (AUTO) 11.6 % (20.5-51.1); MEAN CORPUSCULAR HEMOGLOBIN 26 pg (27-31); MEAN CORPUSCULAR HGB CONC 32 g/dL (33-37); MEAN CORPUSCULAR VOLUME 80.5 fL (80-94); MONOCYTES # (AUTO) 1.5 K/uL (0.8-1.0); MONOCYTES % (AUTO) 9.9 % (1.7-9.3); NEUTROPHILS # (AUTO) 10.9 K/uL (1.8-7.7); NEUTROPHILS % (AUTO) 74.2 % (42.2-75.2); PLATELET COUNT (AUTO) 229 K/uL (140-450); RED BLOOD CELL COUNT(AUTO) 4.82 MIL/uL (4.20-6.10); RED CELL DISTRIBUTION WIDTH 15.2 % (11.6-13.7); WHITE BLOOD COUNT (AUTO) 14.7 K/uL (4.8-10.8)
[2023-11-15 08:00] VITALS: BP 122/79; PULSE 102; RESP 18; TEMP 97.6; O2SAT 97
[2023-11-15 08:33] LABS: ALBUMIN 2.2 g/dL (3.4-5.0); ANION GAP 7.8 (8-16); CALCIUM 8.3 mg/dL (8.5-10.1); CREATININE 0.8 mg/dL (0.6-1.3); POTASSIUM 3.8 mmol/L (3.5-5.1); TOTAL BILIRUBIN 0.5 mg/dL (0.0-1.0); TOTAL PROTEIN, SERUM 7.1 g/dL (6.4-8.2)
[2023-11-15] MEDS: GABAPENTIN 100 MG CAP PO SCH (08:41)
[2023-11-15] MEDS: bisacodyL 10 MG SUPP RC SCH (08:50)
[2023-11-15 16:00] VITALS: BP 130/78; PULSE 98; RESP 18; TEMP 97.9; O2SAT 98
[2023-11-15 20:00] VITALS: PULSE 88; RESP 18; O2SAT 96
[2023-11-16] VITALS: BP 118/63; PULSE 88; RESP 18; TEMP 98.2; O2SAT 96
[2023-11-16 06:45] LABS: BASOPHILS % (AUTO) 0.3 % (0.0-2.0); EOSINOPHILS # (AUTO) 0.4 K/uL (0-0.4); EOSINOPHILS % (AUTO) 2.8 % (0.0-4.0); HEMATOCRIT 38.5 % (36-52); HEMOGLOBIN 12.5 g/dL (12.0-18.0); LYMPHOCYTES # (AUTO) 1.8 K/uL (2.0-11.5); LYMPHOCYTES % (AUTO) 12.5 % (20.5-51.1); MEAN CORPUSCULAR HEMOGLOBIN 26 pg (27-31); MEAN CORPUSCULAR HGB CONC 32 g/dL (33-37); MEAN CORPUSCULAR VOLUME 79.8 fL (80-94); MONOCYTES # (AUTO) 1.4 K/uL (0.8-1.0); MONOCYTES % (AUTO) 9.8 % (1.7-9.3); NEUTROPHILS # (AUTO) 10.8 K/uL (1.8-7.7); NEUTROPHILS % (AUTO) 74.6 % (42.2-75.2); PLATELET COUNT (AUTO) 236 K/uL (140-450); RED BLOOD CELL COUNT(AUTO) 4.82 MIL/uL (4.20-6.10); RED CELL DISTRIBUTION WIDTH 15.1 % (11.6-13.7); WHITE BLOOD COUNT (AUTO) 14.4 K/uL (4.8-10.8)
[2023-11-16 08:00] VITALS: BP 120/77; PULSE 95; RESP 18; TEMP 97.7; O2SAT 95
[2023-11-16 16:00] VITALS: BP 118/79; PULSE 92; RESP 18; TEMP 98.9; O2SAT 95
[2023-11-16 20:00] VITALS: BP 122/78; PULSE 102; RESP 18; TEMP 98.7; O2SAT 95
[2023-11-17 04:00] VITALS: BP 116/73; PULSE 99; RESP 18; TEMP 98.7; O2SAT 94
[2023-11-17 07:16] LABS: BASOPHILS # (AUTO) 0.1 K/uL (0.00-0.22); BASOPHILS % (AUTO) 0.4 % (0.0-2.0); EOSINOPHILS # (AUTO) 0.4 K/uL (0-0.4); EOSINOPHILS % (AUTO) 2.9 % (0.0-4.0); HEMATOCRIT 38.9 % (36-52); HEMOGLOBIN 12.6 g/dL (12.0-18.0); LYMPHOCYTES # (AUTO) 1.7 K/uL (2.0-11.5); LYMPHOCYTES % (AUTO) 11.4 % (20.5-51.1); MEAN CORPUSCULAR HEMOGLOBIN 26 pg (27-31); MEAN CORPUSCULAR HGB CONC 32 g/dL (33-37); MEAN CORPUSCULAR VOLUME 79.7 fL (80-94); MONOCYTES # (AUTO) 1.3 K/uL (0.8-1.0); MONOCYTES % (AUTO) 8.8 % (1.7-9.3); NEUTROPHILS # (AUTO) 11.4 K/uL (1.8-7.7); NEUTROPHILS % (AUTO) 76.5 % (42.2-75.2); PLATELET COUNT (AUTO) 247 K/uL (140-450); RED BLOOD CELL COUNT(AUTO) 4.87 MIL/uL (4.20-6.10); WHITE BLOOD COUNT (AUTO) 14.8 K/uL (4.8-10.8)
[2023-11-17 07:29] LABS: ANION GAP 10.4 (8-16); CALCIUM 8.6 mg/dL (8.5-10.1); CARBON DIOXIDE 27.2 mmol/L (21-32); CREATININE 0.8 mg/dL (0.6-1.3); POTASSIUM 3.6 mmol/L (3.5-5.1)
[2023-11-17 08:00] VITALS: PULSE 98; RESP 18
[2023-11-17 16:00] VITALS: BP 110/75; PULSE 99; RESP 18; TEMP 99.3; O2SAT 99
[2023-11-17 20:00] VITALS: BP 103/73; PULSE 102; RESP 17; RESP 18; TEMP 98.1; O2SAT 93
[2023-11-18 04:00] VITALS: BP 109/71; PULSE 98; RESP 18; TEMP 98.1; O2SAT 93
[2023-11-18 06:44] LABS: BASOPHILS # (AUTO) 0.1 K/uL (0.00-0.22); BASOPHILS % (AUTO) 0.5 % (0.0-2.0); EOSINOPHILS # (AUTO) 0.3 K/uL (0-0.4); EOSINOPHILS % (AUTO) 2.7 % (0.0-4.0); HEMATOCRIT 37.3 % (36-52); HEMOGLOBIN 12.2 g/dL (12.0-18.0); LYMPHOCYTES # (AUTO) 1.4 K/uL (2.0-11.5); LYMPHOCYTES % (AUTO) 11.7 % (20.5-51.1); MEAN CORPUSCULAR HEMOGLOBIN 26 pg (27-31); MEAN CORPUSCULAR HGB CONC 33 g/dL (33-37); MEAN CORPUSCULAR VOLUME 78.9 fL (80-94); MONOCYTES # (AUTO) 1.2 K/uL (0.8-1.0); MONOCYTES % (AUTO) 10.3 % (1.7-9.3); NEUTROPHILS # (AUTO) 8.9 K/uL (1.8-7.7); NEUTROPHILS % (AUTO) 74.8 % (42.2-75.2); PLATELET COUNT (AUTO) 231 K/uL (140-450); RED BLOOD CELL COUNT(AUTO) 4.73 MIL/uL (4.20-6.10); RED CELL DISTRIBUTION WIDTH 15.3 % (11.6-13.7); WHITE BLOOD COUNT (AUTO) 11.9 K/uL (4.8-10.8)
[2023-11-18 07:01] LABS: ANION GAP 11.2 (8-16); CALCIUM 8.5 mg/dL (8.5-10.1); CARBON DIOXIDE 28.3 mmol/L (21-32); CREATININE 0.8 mg/dL (0.6-1.3); POTASSIUM 3.5 mmol/L (3.5-5.1)
[2023-11-18 08:00] VITALS: PULSE 92; RESP 18
[2023-11-18] MEDS: VANCOMYCIN 1.25GM PREMIX 250 ML IV SCH (08:31)
[2023-11-18 12:46] LABS: INR 1.07 (0.8-1.2); PARTIAL THROMBOPLASTIN TIME 25.6 secs (22-35.6); PROTHROMBIN TIME 11.2 secs (10.8-13.4)
[2023-11-18] MEDS ORDERED: VANCOMYCIN PER PHARMACY MC PRN (14:15)
[2023-11-18 16:00] VITALS: BP 106/73; PULSE 93; RESP 18; TEMP 99.2; O2SAT 93
[2023-11-18 20:00] VITALS: BP 116/78; PULSE 105; RESP 18; TEMP 98.2; O2SAT 93
[2023-11-19 04:00] VITALS: BP 109/69; PULSE 98; RESP 18; TEMP 98.6; O2SAT 93
[2023-11-19 07:42] LABS: BASOPHILS # (AUTO) 0.1 K/uL (0.00-0.22); BASOPHILS % (AUTO) 0.5 % (0.0-2.0); EOSINOPHILS # (AUTO) 0.3 K/uL (0-0.4); EOSINOPHILS % (AUTO) 2.6 % (0.0-4.0); HEMATOCRIT 37.5 % (36-52); HEMOGLOBIN 12.2 g/dL (12.0-18.0); LYMPHOCYTES # (AUTO) 1.6 K/uL (2.0-11.5); MEAN CORPUSCULAR HEMOGLOBIN 26 pg (27-31); MEAN CORPUSCULAR HGB CONC 32 g/dL (33-37); MEAN CORPUSCULAR VOLUME 79.6 fL (80-94); MONOCYTES # (AUTO) 1.4 K/uL (0.8-1.0); MONOCYTES % (AUTO) 11.4 % (1.7-9.3); NEUTROPHILS # (AUTO) 8.7 K/uL (1.8-7.7); NEUTROPHILS % (AUTO) 72.5 % (42.2-75.2); PLATELET COUNT (AUTO) 241 K/uL (140-450); RED CELL DISTRIBUTION WIDTH 15.2 % (11.6-13.7)
[2023-11-19 07:48] LABS: ANION GAP 11.2 (8-16); CALCIUM 8.6 mg/dL (8.5-10.1); CARBON DIOXIDE 27.2 mmol/L (21-32); CREATININE 0.8 mg/dL (0.6-1.3); POTASSIUM 3.4 mmol/L (3.5-5.1)
[2023-11-19 08:00] VITALS: PULSE 91; RESP 19
[2023-11-19] MEDS: ceFAZolin 2,000 MG VIAL ONE (08:21)
[2023-11-19] MEDS: BUPIVACAINE-MPF 0.25% 30 ML VIAL INJ ONE (08:21)
[2023-11-19] MEDS ORDERED: diphenhydrAMINE 50 MG/ML VIAL IVP PRN (08:25)
[2023-11-19] MEDS ORDERED: MEPERIDINE 25 MG/ML SYR IVP PRN (08:25)
[2023-11-19] MEDS ORDERED: ONDANSETRON 4 MG/2 ML VIAL IVP PRN (08:25)
[2023-11-19] MEDS ORDERED: HYDROmorphone 1 MG/ML AMP IVP PRN (08:25)
[2023-11-19] MEDS: VANCOMYCIN 1,000 MG VIAL ONE (09:00)
[2023-11-19 16:00] VITALS: BP 105/73; PULSE 109; RESP 18; TEMP 99; O2SAT 94
[2023-11-19] MEDS: NACL 0.9% 1,000 ML IV SCH (16:45)
[2023-11-19] MEDS: POTASSIUM CHLORIDE 10 MEQ TABER PO SCH (18:41)
[2023-11-19 20:00] VITALS: BP 108/87; PULSE 117; PULSE 90; RESP 18; TEMP 98.2; O2SAT 96
[2023-11-20 08:00] VITALS: BP 102/64; PULSE 101; RESP 18; TEMP 97.5; O2SAT 94
[2023-11-20 09:09] LABS: BASOPHILS # (AUTO) 0.1 K/uL (0.00-0.22); BASOPHILS % (AUTO) 0.7 % (0.0-2.0); EOSINOPHILS # (AUTO) 0.4 K/uL (0-0.4); EOSINOPHILS % (AUTO) 3.1 % (0.0-4.0); HEMATOCRIT 27.5 % (36-52); HEMOGLOBIN 8.9 g/dL (12.0-18.0); LYMPHOCYTES # (AUTO) 1.5 K/uL (2.0-11.5); LYMPHOCYTES % (AUTO) 13.2 % (20.5-51.1); MEAN CORPUSCULAR HEMOGLOBIN 26 pg (27-31); MEAN CORPUSCULAR HGB CONC 32 g/dL (33-37); MEAN CORPUSCULAR VOLUME 79.4 fL (80-94); MONOCYTES # (AUTO) 1.1 K/uL (0.8-1.0); MONOCYTES % (AUTO) 9.3 % (1.7-9.3); NEUTROPHILS # (AUTO) 8.4 K/uL (1.8-7.7); NEUTROPHILS % (AUTO) 73.7 % (42.2-75.2); PLATELET COUNT (AUTO) 242 K/uL (140-450); RED BLOOD CELL COUNT(AUTO) 3.46 MIL/uL (4.20-6.10); RED CELL DISTRIBUTION WIDTH 15.2 % (11.6-13.7); WHITE BLOOD COUNT (AUTO) 11.4 K/uL (4.8-10.8)
[2023-11-20 10:12] LABS: ANION GAP 10.3 (8-16); CALCIUM 8.1 mg/dL (8.5-10.1); CARBON DIOXIDE 27.3 mmol/L (21-32); CREATININE 0.8 mg/dL (0.6-1.3); POTASSIUM 3.6 mmol/L (3.5-5.1)
[2023-11-20 10:27] LABS: MAGNESIUM 1.9 mg/dL (1.8-2.4); PHOSPHORUS 3.2 mg/dL (2.5-4.9)
[2023-11-20 16:00] VITALS: BP 94/64; PULSE 99; RESP 18; TEMP 98.5; O2SAT 95
[2023-11-20 20:00] VITALS: PULSE 111; RESP 18
[2023-11-21 04:00] VITALS: BP 105/76; PULSE 102; RESP 18; TEMP 97.6; O2SAT 95
[2023-11-21 06:58] LABS: BASOPHILS # (AUTO) 0.1 K/uL (0.00-0.22); BASOPHILS % (AUTO) 0.7 % (0.0-2.0); EOSINOPHILS # (AUTO) 0.3 K/uL (0-0.4); EOSINOPHILS % (AUTO) 3.2 % (0.0-4.0); HEMATOCRIT 25.1 % (36-52); HEMOGLOBIN 8.3 g/dL (12.0-18.0); LYMPHOCYTES # (AUTO) 1.4 K/uL (2.0-11.5); LYMPHOCYTES % (AUTO) 14.9 % (20.5-51.1); MEAN CORPUSCULAR HEMOGLOBIN 27 pg (27-31); MEAN CORPUSCULAR HGB CONC 33 g/dL (33-37); MEAN CORPUSCULAR VOLUME 79.5 fL (80-94); MONOCYTES # (AUTO) 0.8 K/uL (0.8-1.0); MONOCYTES % (AUTO) 8.7 % (1.7-9.3); NEUTROPHILS % (AUTO) 72.5 % (42.2-75.2); PLATELET COUNT (AUTO) 229 K/uL (140-450); RED BLOOD CELL COUNT(AUTO) 3.15 MIL/uL (4.20-6.10); RED CELL DISTRIBUTION WIDTH 15.1 % (11.6-13.7); WHITE BLOOD COUNT (AUTO) 9.6 K/uL (4.8-10.8)
[2023-11-21 07:17] LABS: MAGNESIUM 1.6 mg/dL (1.8-2.4); PHOSPHORUS 2.6 mg/dL (2.5-4.9)
[2023-11-21 07:30] LABS: ANION GAP 9.7 (8-16); CALCIUM 8.1 mg/dL (8.5-10.1); CARBON DIOXIDE 27.6 mmol/L (21-32); CREATININE 0.7 mg/dL (0.6-1.3); POTASSIUM 3.3 mmol/L (3.5-5.1)
[2023-11-21 08:00] VITALS: PULSE 95; RESP 18
[2023-11-21] MEDS: METOCLOPRAMIDE 10 MG/2 ML INJ VIAL ONE (10:18)
[2023-11-21] MEDS: fentaNYL citrate 0.05 MG/ML VIAL ONE (10:18)
[2023-11-21] MEDS: BLOOD GLUCOSE MONITORING 1 DEV DEV FS ONE (10:18)
[2023-11-21] MEDS: MIDAZOLAM 2 MG/2 ML VIAL ONE (10:18)
[2023-11-21] MEDS: KETOROLAC 30 MG/ML VIAL ONE (10:19)
[2023-11-21] MEDS: ONDANSETRON 4 MG/2 ML VIAL ONE (10:19)
[2023-11-21] MEDS: PROPOFOL 200 MG/20 ML VIAL IV ONE (10:19)
[2023-11-21 16:00] VITALS: BP 107/70; PULSE 87; RESP 18; TEMP 97.9; O2SAT 97
[2023-11-21 20:00] VITALS: BP 102/64; PULSE 82; PULSE 98; RESP 18; TEMP 97.6; O2SAT 95
[2023-11-22 06:40] LABS: BASOPHILS % (AUTO) 0.5 % (0.0-2.0); EOSINOPHILS # (AUTO) 0.3 K/uL (0-0.4); EOSINOPHILS % (AUTO) 3.6 % (0.0-4.0); HEMATOCRIT 25.1 % (36-52); HEMOGLOBIN 8.2 g/dL (12.0-18.0); LYMPHOCYTES # (AUTO) 1.3 K/uL (2.0-11.5); LYMPHOCYTES % (AUTO) 17.2 % (20.5-51.1); MEAN CORPUSCULAR HEMOGLOBIN 26 pg (27-31); MEAN CORPUSCULAR HGB CONC 33 g/dL (33-37); MONOCYTES # (AUTO) 0.6 K/uL (0.8-1.0); MONOCYTES % (AUTO) 8.4 % (1.7-9.3); NEUTROPHILS # (AUTO) 5.4 K/uL (1.8-7.7); NEUTROPHILS % (AUTO) 70.3 % (42.2-75.2); PLATELET COUNT (AUTO) 238 K/uL (140-450); RED BLOOD CELL COUNT(AUTO) 3.14 MIL/uL (4.20-6.10); RED CELL DISTRIBUTION WIDTH 15.2 % (11.6-13.7); WHITE BLOOD COUNT (AUTO) 7.7 K/uL (4.8-10.8)
[2023-11-22 07:20] LABS: MAGNESIUM 1.8 mg/dL (1.8-2.4); PHOSPHORUS 3.1 mg/dL (2.5-4.9)
[2023-11-22 08:00] VITALS: BP 117/73; PULSE 78; PULSE 98; RESP 18; TEMP 97.7; O2SAT 95
[2023-11-22] MEDS ORDERED: POTASSIUM CHLORIDE 10 MEQ TABER PO PRN (14:05)
[2023-11-22] MEDS: POTASSIUM CHLORIDE 10 MEQ TABER PO SCH (16:06)
[2023-11-22 16:42] VITALS: TEMP 97.7
[2023-11-22 18:00] VITALS: BP 109/61; PULSE 98; RESP 18; TEMP 97.8; O2SAT 98
[2023-11-22 20:00] VITALS: PULSE 88; RESP 18
[2023-11-23 04:00] VITALS: BP 97/64; PULSE 78; RESP 17; TEMP 97.6; O2SAT 97
[2023-11-23 06:56] LABS: BASOPHILS # (AUTO) 0.1 K/uL (0.00-0.22); BASOPHILS % (AUTO) 1.1 % (0.0-2.0); EOSINOPHILS # (AUTO) 0.3 K/uL (0-0.4); EOSINOPHILS % (AUTO) 4.2 % (0.0-4.0); HEMATOCRIT 27.7 % (36-52); HEMOGLOBIN 9.1 g/dL (12.0-18.0); LYMPHOCYTES # (AUTO) 1.6 K/uL (2.0-11.5); LYMPHOCYTES % (AUTO) 18.9 % (20.5-51.1); MEAN CORPUSCULAR HEMOGLOBIN 26 pg (27-31); MEAN CORPUSCULAR HGB CONC 33 g/dL (33-37); MEAN CORPUSCULAR VOLUME 80.2 fL (80-94); MONOCYTES # (AUTO) 0.6 K/uL (0.8-1.0); MONOCYTES % (AUTO) 7.2 % (1.7-9.3); NEUTROPHILS # (AUTO) 5.7 K/uL (1.8-7.7); NEUTROPHILS % (AUTO) 68.6 % (42.2-75.2); PLATELET COUNT (AUTO) 258 K/uL (140-450); RED BLOOD CELL COUNT(AUTO) 3.45 MIL/uL (4.20-6.10); RED CELL DISTRIBUTION WIDTH 15.1 % (11.6-13.7); WHITE BLOOD COUNT (AUTO) 8.2 K/uL (4.8-10.8)
[2023-11-23 07:27] LABS: MAGNESIUM 1.8 mg/dL (1.8-2.4); PHOSPHORUS 3.3 mg/dL (2.5-4.9)
[2023-11-23 07:31] LABS: ANION GAP 11.6 (8-16); CALCIUM 8.6 mg/dL (8.5-10.1); CREATININE 0.8 mg/dL (0.6-1.3); POTASSIUM 3.6 mmol/L (3.5-5.1)
[2023-11-23 08:00] VITALS: BP 110/76; PULSE 77; PULSE 88; RESP 18; RESP 19; TEMP 97.3; O2SAT 96
[2023-11-23 16:00] VITALS: BP 125/66; PULSE 81; RESP 18; TEMP 98; O2SAT 98
[2023-11-23 20:00] VITALS: PULSE 82; RESP 18; TEMP 98.3
[2023-11-24] VITALS: BP 110/66; PULSE 84; RESP 18; TEMP 98.6; O2SAT 96
[2023-11-24 07:08] LABS: MAGNESIUM 1.8 mg/dL (1.8-2.4); PHOSPHORUS 3.6 mg/dL (2.5-4.9)
[2023-11-24 07:09] LABS: ANION GAP 10.2 (8-16); CARBON DIOXIDE 28.9 mmol/L (21-32); CREATININE 0.8 mg/dL (0.6-1.3); POTASSIUM 4.1 mmol/L (3.5-5.1)
[2023-11-24 08:00] VITALS: BP 119/72; PULSE 82; PULSE 89; RESP 18; TEMP 98.3; TEMP 98.5; O2SAT 95
[2023-11-24 08:07] LABS: BASOPHILS # (AUTO) 0.1 K/uL (0.00-0.22); BASOPHILS % (AUTO) 0.7 % (0.0-2.0); EOSINOPHILS # (AUTO) 0.4 K/uL (0-0.4); EOSINOPHILS % (AUTO) 4.5 % (0.0-4.0); HEMATOCRIT 29.2 % (36-52); HEMOGLOBIN 9.3 g/dL (12.0-18.0); LYMPHOCYTES # (AUTO) 1.7 K/uL (2.0-11.5); LYMPHOCYTES % (AUTO) 19.9 % (20.5-51.1); MEAN CORPUSCULAR HEMOGLOBIN 26 pg (27-31); MEAN CORPUSCULAR HGB CONC 32 g/dL (33-37); MEAN CORPUSCULAR VOLUME 81.4 fL (80-94); MONOCYTES # (AUTO) 0.7 K/uL (0.8-1.0); MONOCYTES % (AUTO) 8.8 % (1.7-9.3); NEUTROPHILS # (AUTO) 5.5 K/uL (1.8-7.7); NEUTROPHILS % (AUTO) 66.1 % (42.2-75.2); PLATELET COUNT (AUTO) 277 K/uL (140-450); RED BLOOD CELL COUNT(AUTO) 3.58 MIL/uL (4.20-6.10); RED CELL DISTRIBUTION WIDTH 15.9 % (11.6-13.7); WHITE BLOOD COUNT (AUTO) 8.3 K/uL (4.8-10.8)
[2023-11-24 15:15] VITALS: BP 119/72; PULSE 89; RESP 18; TEMP 97.6
[2023-11-24 16:00] VITALS: BP 124/80; PULSE 84; RESP 18; TEMP 98; O2SAT 97
== END 2023-11-24 18:05 | DRG 710 ==
LOC: MED 19:14 → MTU 21:57
PROVIDERS: ADMIT Student in an Organized Health Care Education/Training Program; ATTEND Student in an Organized Health Care Education/Training Program
PROC: 0Y9C0ZZ Drainage of Right Upper Leg, Open Approach (ICD-10-PCS; 2023-11-19)
PROC: 0SB90ZZ Excision of Right Hip Joint, Open Approach (ICD-10-PCS; principal; 2023-11-19 08:00)
DX: A41.02 Sepsis due to Methicillin resistant Staphylococcus aureus (principal); E43 Unspecified severe protein-calorie malnutrition; G82.20 Paraplegia, unspecified; L02.415 Cutaneous abscess of right lower limb; M00.9 Pyogenic arthritis, unspecified; I42.9 Cardiomyopathy, unspecified; L03.115 Cellulitis of right lower limb; J44.9 Chronic obstructive pulmonary disease, unspecified; E11.9 Type 2 diabetes mellitus without complications; I10 Essential (primary) hypertension; Z86.711 Personal history of pulmonary embolism; Z86.73 Personal history of transient ischemic attack (TIA), and cerebral infarction without residual deficits; Z79.899 Other long term (current) drug therapy; Z68.35 Body mass index [BMI] 35.0-35.9, adult
CPT/HCPCS: 36415; 71045; 73700; 80048; 80053; 80076; 80202; 81003; 82550; 82553; 83036; 83605; 83735; 83880; 84100; 84484; 85025; 85610; 85651; 85730; 86140; 87040; 87070; 87075; 87086; 87186; 87205; 93005; 96365; 97110; 97163-GP; 97530; 99285; J0692; J1644; J1885; J2250; J2405; J2470; J2543; J2704; J2765; J3010; J3370; J3372; J3490; J7030; J7060

== ENCOUNTER 2023-12-15 15:36 | Emergency (ER) | payer MEDICAID ==
[~2023-12-15] VITALS: Ht 182.9 cm; Wt 95.3 kg
[~2023-12-15 15:36] MED LIST changes: -D50SYR IV; -GABA100C PO; -PIPE1SOL IV
[2023-12-15 15:39] VITALS: BP 112/76; PULSE 90; RESP 18; TEMP 98; O2SAT 98
[2023-12-15 16:53] LABS: BASOPHILS # (AUTO) 0.1 K/uL (0.00-0.22); BASOPHILS % (AUTO) 0.9 % (0.0-2.0); EOSINOPHILS # (AUTO) 0.5 K/uL (0-0.4); EOSINOPHILS % (AUTO) 4.9 % (0.0-4.0); HEMATOCRIT 38.8 % (36-52); HEMOGLOBIN 12.2 g/dL (12.0-18.0); LYMPHOCYTES % (AUTO) 21.4 % (20.5-51.1); MEAN CORPUSCULAR HEMOGLOBIN 25 pg (27-31); MEAN CORPUSCULAR HGB CONC 31 g/dL (33-37); MEAN CORPUSCULAR VOLUME 80.9 fL (80-94); MONOCYTES # (AUTO) 0.9 K/uL (0.8-1.0); MONOCYTES % (AUTO) 9.2 % (1.7-9.3); NEUTROPHILS # (AUTO) 6.1 K/uL (1.8-7.7); NEUTROPHILS % (AUTO) 63.6 % (42.2-75.2); PLATELET COUNT (AUTO) 169 K/uL (140-450); RED CELL DISTRIBUTION WIDTH 17.3 % (11.6-13.7); WHITE BLOOD COUNT (AUTO) 9.5 K/uL (4.8-10.8)
[2023-12-15 17:05] LABS: ANION GAP 11.7 (8-16); CALCIUM 8.7 mg/dL (8.5-10.1); CARBON DIOXIDE 28.8 mmol/L (21-32); CREATININE 0.8 mg/dL (0.6-1.3); POTASSIUM 3.5 mmol/L (3.5-5.1)
[2023-12-15] MEDS ORDERED: CEPH-588 PO (18:02)
[2023-12-15 19:00] VITALS: TEMP 98.8
[2023-12-15 23:10] VITALS: BP 118/80; PULSE 100; RESP 14; O2SAT 96
== END 2023-12-15 23:10 | disposition home or self-care (01) ==
LOC: MED 15:36
DX: S71.111D Laceration without foreign body, right thigh, subsequent encounter (principal); L03.115 Cellulitis of right lower limb; J45.909 Unspecified asthma, uncomplicated; J44.9 Chronic obstructive pulmonary disease, unspecified; I12.0 Hypertensive chronic kidney disease with stage 5 chronic kidney disease or end stage renal disease; E11.22 Type 2 diabetes mellitus with diabetic chronic kidney disease; N18.6 End stage renal disease; Z48.00 Encounter for change or removal of nonsurgical wound dressing; Z99.2 Dependence on renal dialysis; Z86.73 Personal history of transient ischemic attack (TIA), and cerebral infarction without residual deficits; Z98.890 Other specified postprocedural states; Z79.899 Other long term (current) drug therapy; X58.XXXD Exposure to other specified factors, subsequent encounter
CPT/HCPCS: 36415; 73700; 80048; 83605; 85025; 87040; 99285

== ENCOUNTER 2024-01-04 14:19 | Inpatient (IN) | payer MEDICAID ==
[~2024-01-04] VITALS: Ht 180.3 cm; Wt 112.5 kg
[~2024-01-04 14:19] MED LIST changes: +CEPH-588 PO
[2024-01-04 14:24] VITALS: BP 120/84; PULSE 88; RESP 18; TEMP 97.3; TEMP 98.1; O2SAT 96
[2024-01-04 15:22] LABS: BASOPHILS # (AUTO) 0.3 K/uL (0.00-0.22); BASOPHILS % (AUTO) 2.2 % (0.0-2.0); EOSINOPHILS # (AUTO) 0.4 K/uL (0-0.4); EOSINOPHILS % (AUTO) 3.2 % (0.0-4.0); HEMATOCRIT 42.2 % (36-52); HEMOGLOBIN 13.4 g/dL (12.0-18.0); LYMPHOCYTES # (AUTO) 1.9 K/uL (2.0-11.5); LYMPHOCYTES % (AUTO) 16.6 % (20.5-51.1); MEAN CORPUSCULAR HEMOGLOBIN 25 pg (27-31); MEAN CORPUSCULAR HGB CONC 32 g/dL (33-37); MEAN CORPUSCULAR VOLUME 77.9 fL (80-94); MONOCYTES # (AUTO) 1.3 K/uL (0.8-1.0); MONOCYTES % (AUTO) 10.9 % (1.7-9.3); NEUTROPHILS # (AUTO) 7.9 K/uL (1.8-7.7); NEUTROPHILS % (AUTO) 67.1 % (42.2-75.2); PLATELET COUNT (AUTO) 218 K/uL (140-450); RED BLOOD CELL COUNT(AUTO) 5.42 MIL/uL (4.20-6.10); RED CELL DISTRIBUTION WIDTH 16.4 % (11.6-13.7); WHITE BLOOD COUNT (AUTO) 11.7 K/uL (4.8-10.8)
[2024-01-04 15:31] LABS: ANION GAP 10.3 (8-16); CALCIUM 8.9 mg/dL (8.5-10.1); CARBON DIOXIDE 29.6 mmol/L (21-32); CREATININE 0.8 mg/dL (0.6-1.3); POTASSIUM 3.9 mmol/L (3.5-5.1)
[2024-01-04] MEDS ORDERED: MORPHINE SULFATE 2 MG/ML SYR IVP PRN (18:40)
[2024-01-04] MEDS ORDERED: ONDANSETRON 4 MG/2 ML VIAL IVP PRN (18:40)
[2024-01-04] MEDS ORDERED: ACETAMINOPHEN 325 MG TAB PO PRN (18:40)
[2024-01-04] MEDS ORDERED: LORazepam 2 MG/ML VIAL IVP PRN (18:40)
[2024-01-04] MEDS ORDERED: HYDROcodone/APAP 5/325 MG 1 TAB TAB PO PRN (18:40)
[2024-01-04] MEDS ORDERED: ACET-8905 PO (18:55)
[2024-01-04] MEDS ORDERED: FURO-570 PO (18:55)
[2024-01-04] MEDS ORDERED: TUBE5SOL28 ID (18:55)
[2024-01-04] MEDS ORDERED: FERR325E14 PO (18:55)
[2024-01-04] MEDS ORDERED: ECON30CR5 TP (18:55)
[2024-01-04] MEDS ORDERED: CLINICAL MONITORING MC PRN (19:05)
[2024-01-04 19:15] LABS: LACTIC ACID 1.3 mmol/L (0.4-2.0)
[2024-01-04] MEDS: NACL 0.9% 2,000 ML IV ONE (19:34)
[2024-01-04] MEDS: NACL 0.9% 1,000 ML IV SCH (19:35)
[2024-01-04 20:20] VITALS: BP 127/89; PULSE 93; PULSE 96; RESP 18; TEMP 97.8; O2SAT 96
[2024-01-04 20:21] VITALS: PULSE 96
[2024-01-05] VITALS: BP 125/82; PULSE 93; PULSE 95; RESP 16; TEMP 97.2; O2SAT 98
[2024-01-05] MEDS: PIPERACILLIN/TAZOBACTAM 3.375 GM in DEXTROSE 5% 50 ML IV SCH (00:37)
[2024-01-05] MEDS: PIPERACILLIN/TAZOBACTAM 3.375 GM VIAL IV ONE (00:38)
[2024-01-05] MEDS: VANCOMYCIN 1.25GM PREMIX 250 ML IV SCH (00:49)
[2024-01-05 04:00] VITALS: BP 132/78; PULSE 86; PULSE 88; RESP 20; TEMP 97.8; O2SAT 97
[2024-01-05 08:00] VITALS: BP 119/85; PULSE 82; RESP 18; RESP 20; TEMP 98; O2SAT 98
[2024-01-05 08:11] LABS: BASOPHILS # (AUTO) 0.1 K/uL (0.00-0.22); BASOPHILS % (AUTO) 0.6 % (0.0-2.0); EOSINOPHILS # (AUTO) 0.3 K/uL (0-0.4); EOSINOPHILS % (AUTO) 3.4 % (0.0-4.0); HEMATOCRIT 39.7 % (36-52); HEMOGLOBIN 12.6 g/dL (12.0-18.0); LYMPHOCYTES # (AUTO) 1.7 K/uL (2.0-11.5); LYMPHOCYTES % (AUTO) 16.4 % (20.5-51.1); MEAN CORPUSCULAR HEMOGLOBIN 25 pg (27-31); MEAN CORPUSCULAR HGB CONC 32 g/dL (33-37); MEAN CORPUSCULAR VOLUME 77.9 fL (80-94); MONOCYTES # (AUTO) 0.9 K/uL (0.8-1.0); MONOCYTES % (AUTO) 9.3 % (1.7-9.3); NEUTROPHILS # (AUTO) 7.2 K/uL (1.8-7.7); NEUTROPHILS % (AUTO) 70.3 % (42.2-75.2); PLATELET COUNT (AUTO) 189 K/uL (140-450); RED CELL DISTRIBUTION WIDTH 16.5 % (11.6-13.7); WHITE BLOOD COUNT (AUTO) 10.2 K/uL (4.8-10.8)
[2024-01-05 08:26] LABS: ANION GAP 11.2 (8-16); CALCIUM 8.4 mg/dL (8.5-10.1); CARBON DIOXIDE 27.6 mmol/L (21-32); CREATININE 0.8 mg/dL (0.6-1.3); POTASSIUM 3.8 mmol/L (3.5-5.1)
[2024-01-05 12:00] VITALS: BP 115/76; PULSE 91; RESP 20; TEMP 98.6; O2SAT 99
[2024-01-05 16:00] VITALS: BP 123/82; PULSE 87; RESP 20; TEMP 98.7; O2SAT 98
[2024-01-05] MEDS ORDERED: DEXTROSE 50% 50 ML SYR IVP PRN (16:00)
[2024-01-05] MEDS ORDERED: INSULIN LISPRO SLIDING SCALE 100 UNITS/ML VIAL SUBQ PRN (16:00)
[2024-01-05] MEDS: BLOOD GLUCOSE MONITORING 1 DEV DEV FS SCH (17:29)
[2024-01-05 20:00] VITALS: BP 121/74; PULSE 90; PULSE 93; RESP 18; TEMP 98.6; O2SAT 95; O2SAT 96
[2024-01-05] MEDS: FUROSEMIDE 40 MG TAB PO SCH (20:50)
[2024-01-06] VITALS (7 sets, daily range): BP systolic 113–132; BP diastolic 73–89; PULSE 73–89; RESP 18; TEMP 97.5–98.3; O2SAT 95–99
[2024-01-06 05:36] LABS: BASOPHILS # (AUTO) 0.1 K/uL (0.00-0.22); BASOPHILS % (AUTO) 1.3 % (0.0-2.0); EOSINOPHILS # (AUTO) 0.4 K/uL (0-0.4); HEMATOCRIT 38.4 % (36-52); HEMOGLOBIN 12.3 g/dL (12.0-18.0); LYMPHOCYTES # (AUTO) 1.5 K/uL (2.0-11.5); LYMPHOCYTES % (AUTO) 13.6 % (20.5-51.1); MEAN CORPUSCULAR HEMOGLOBIN 25 pg (27-31); MEAN CORPUSCULAR HGB CONC 32 g/dL (33-37); MEAN CORPUSCULAR VOLUME 77.3 fL (80-94); NEUTROPHILS # (AUTO) 7.9 K/uL (1.8-7.7); NEUTROPHILS % (AUTO) 72.1 % (42.2-75.2); PLATELET COUNT (AUTO) 190 K/uL (140-450); RED BLOOD CELL COUNT(AUTO) 4.97 MIL/uL (4.20-6.10); RED CELL DISTRIBUTION WIDTH 16.5 % (11.6-13.7); WHITE BLOOD COUNT (AUTO) 10.9 K/uL (4.8-10.8)
[2024-01-06 05:54] LABS: ALBUMIN 2.6 g/dL (3.4-5.0); CALCIUM 8.6 mg/dL (8.5-10.1); CARBON DIOXIDE 30.7 mmol/L (21-32); CREATININE 0.8 mg/dL (0.6-1.3); MAGNESIUM 1.9 mg/dL (1.8-2.4); PHOSPHORUS 3.7 mg/dL (2.5-4.9); TOTAL BILIRUBIN 0.3 mg/dL (0.0-1.0); TOTAL PROTEIN, SERUM 7.3 g/dL (6.4-8.2)
[2024-01-06 07:13] LABS: POTASSIUM 3.7 mmol/L (3.5-5.1)
[2024-01-06] MEDS: GABAPENTIN 100 MG CAP PO SCH (08:33)
[2024-01-06] MEDS: MAGNESIUM OXIDE 400 MG TAB PO PRN (08:33)
[2024-01-06] MEDS ORDERED: FOAM DRESSING TP PRN (11:40)
[2024-01-06] MEDS ORDERED: ALGINATE DRESSING MC PRN (11:40)
[2024-01-06] MEDS: ALGINATE DRESSING MC SCH (13:36)
[2024-01-06] MEDS: FOAM DRESSING TP SCH (13:37)
[2024-01-06] MEDS ORDERED: VANCOMYCIN PER PHARMACY MC PRN (18:05)
[2024-01-06] MEDS: VANCOMYCIN 1.25GM PREMIX 250 ML IV SCH (18:37)
[2024-01-07 04:00] VITALS: BP 113/72; PULSE 92; RESP 18; TEMP 97.8; O2SAT 98
[2024-01-07 05:19] LABS: BASOPHILS # (AUTO) 0.1 K/uL (0.00-0.22); BASOPHILS % (AUTO) 0.8 % (0.0-2.0); EOSINOPHILS # (AUTO) 0.4 K/uL (0-0.4); EOSINOPHILS % (AUTO) 3.9 % (0.0-4.0); HEMATOCRIT 39.3 % (36-52); HEMOGLOBIN 12.5 g/dL (12.0-18.0); LYMPHOCYTES # (AUTO) 1.6 K/uL (2.0-11.5); LYMPHOCYTES % (AUTO) 15.1 % (20.5-51.1); MEAN CORPUSCULAR HEMOGLOBIN 25 pg (27-31); MEAN CORPUSCULAR HGB CONC 32 g/dL (33-37); MEAN CORPUSCULAR VOLUME 77.2 fL (80-94); MONOCYTES % (AUTO) 10.1 % (1.7-9.3); NEUTROPHILS # (AUTO) 7.2 K/uL (1.8-7.7); NEUTROPHILS % (AUTO) 70.1 % (42.2-75.2); PLATELET COUNT (AUTO) 192 K/uL (140-450); RED BLOOD CELL COUNT(AUTO) 5.09 MIL/uL (4.20-6.10); RED CELL DISTRIBUTION WIDTH 16.4 % (11.6-13.7); WHITE BLOOD COUNT (AUTO) 10.3 K/uL (4.8-10.8)
[2024-01-07 05:53] LABS: ALBUMIN 2.7 g/dL (3.4-5.0); CALCIUM 8.8 mg/dL (8.5-10.1); CARBON DIOXIDE 30.6 mmol/L (21-32); PHOSPHORUS 4.2 mg/dL (2.5-4.9); POTASSIUM 3.6 mmol/L (3.5-5.1); TOTAL BILIRUBIN 0.3 mg/dL (0.0-1.0); TOTAL PROTEIN, SERUM 7.6 g/dL (6.4-8.2)
[2024-01-07 08:00] VITALS: PULSE 84; RESP 18; TEMP 98.1; O2SAT 95
[2024-01-07 16:00] VITALS: BP 128/86; PULSE 88; RESP 18; TEMP 97.6; O2SAT 96
[2024-01-07 20:00] VITALS: BP 113/77; PULSE 85; RESP 18; TEMP 98.2; O2SAT 95
[2024-01-08 07:16] LABS: ALBUMIN 2.7 g/dL (3.4-5.0); ANION GAP 9.2 (8-16); CALCIUM 8.7 mg/dL (8.5-10.1); CARBON DIOXIDE 31.3 mmol/L (21-32); CREATININE 0.9 mg/dL (0.6-1.3); MAGNESIUM 1.7 mg/dL (1.8-2.4); PHOSPHORUS 4.1 mg/dL (2.5-4.9); POTASSIUM 3.5 mmol/L (3.5-5.1); TOTAL BILIRUBIN 0.3 mg/dL (0.0-1.0); TOTAL PROTEIN, SERUM 7.9 g/dL (6.4-8.2)
[2024-01-08 07:31] LABS: BASOPHILS # (AUTO) 0.1 K/uL (0.00-0.22); BASOPHILS % (AUTO) 1.1 % (0.0-2.0); EOSINOPHILS # (AUTO) 0.4 K/uL (0-0.4); EOSINOPHILS % (AUTO) 3.6 % (0.0-4.0); HEMATOCRIT 40.8 % (36-52); LYMPHOCYTES # (AUTO) 1.6 K/uL (2.0-11.5); LYMPHOCYTES % (AUTO) 15.5 % (20.5-51.1); MEAN CORPUSCULAR HEMOGLOBIN 25 pg (27-31); MEAN CORPUSCULAR HGB CONC 32 g/dL (33-37); MEAN CORPUSCULAR VOLUME 76.9 fL (80-94); MONOCYTES % (AUTO) 10.4 % (1.7-9.3); NEUTROPHILS % (AUTO) 69.4 % (42.2-75.2); PLATELET COUNT (AUTO) 191 K/uL (140-450); RED CELL DISTRIBUTION WIDTH 16.3 % (11.6-13.7); WHITE BLOOD COUNT (AUTO) 10.1 K/uL (4.8-10.8)
[2024-01-08 08:00] VITALS: BP 110/76; PULSE 85; RESP 18; TEMP 97.6; O2SAT 97
[2024-01-08 16:00] VITALS: BP 128/79; PULSE 84; RESP 18; TEMP 97.2; O2SAT 96
[2024-01-08 20:00] VITALS: BP 114/83; PULSE 96; RESP 18; TEMP 97.8; O2SAT 95
[2024-01-09 04:00] VITALS: BP 114/78; PULSE 92; RESP 18; TEMP 97.1; O2SAT 95
[2024-01-09 05:45] LABS: ANION GAP 10.1 (8-16); BASOPHILS # (AUTO) 0.1 K/uL (0.00-0.22); BASOPHILS % (AUTO) 0.5 % (0.0-2.0); CALCIUM 8.7 mg/dL (8.5-10.1); CARBON DIOXIDE 30.3 mmol/L (21-32); CREATININE 0.9 mg/dL (0.6-1.3); EOSINOPHILS # (AUTO) 0.4 K/uL (0-0.4); EOSINOPHILS % (AUTO) 3.3 % (0.0-4.0); HEMATOCRIT 41.8 % (36-52); HEMOGLOBIN 13.4 g/dL (12.0-18.0); LYMPHOCYTES # (AUTO) 1.8 K/uL (2.0-11.5); MEAN CORPUSCULAR HEMOGLOBIN 25 pg (27-31); MEAN CORPUSCULAR HGB CONC 32 g/dL (33-37); MEAN CORPUSCULAR VOLUME 76.6 fL (80-94); NEUTROPHILS # (AUTO) 7.7 K/uL (1.8-7.7); NEUTROPHILS % (AUTO) 70.2 % (42.2-75.2); PLATELET COUNT (AUTO) 207 K/uL (140-450); POTASSIUM 3.4 mmol/L (3.5-5.1); RED BLOOD CELL COUNT(AUTO) 5.45 MIL/uL (4.20-6.10); RED CELL DISTRIBUTION WIDTH 16.4 % (11.6-13.7); WHITE BLOOD COUNT (AUTO) 10.9 K/uL (4.8-10.8)
[2024-01-09] MEDS: POTASSIUM CHLORIDE 10 MEQ TABER PO PRN (06:14)
[2024-01-09 08:00] VITALS: PULSE 88; RESP 18; TEMP 97.7; O2SAT 96
[2024-01-09 16:00] VITALS: BP 119/85; PULSE 80; RESP 18; TEMP 98.3; O2SAT 96
[2024-01-09 20:00] VITALS: BP 130/95; PULSE 98; RESP 20; TEMP 98.4; O2SAT 95
[2024-01-09] MEDS: PIPERACILLIN/TAZOBACTAM 3.375 GM in DEXTROSE 5% 50 ML IV SCH (21:31)
[2024-01-10 05:13] LABS: BASOPHILS # (AUTO) 0.1 K/uL (0.00-0.22); BASOPHILS % (AUTO) 0.6 % (0.0-2.0); EOSINOPHILS # (AUTO) 0.4 K/uL (0-0.4); EOSINOPHILS % (AUTO) 3.2 % (0.0-4.0); HEMOGLOBIN 13.8 g/dL (12.0-18.0); LYMPHOCYTES # (AUTO) 2.1 K/uL (2.0-11.5); LYMPHOCYTES % (AUTO) 18.5 % (20.5-51.1); MEAN CORPUSCULAR HEMOGLOBIN 24 pg (27-31); MEAN CORPUSCULAR HGB CONC 32 g/dL (33-37); MEAN CORPUSCULAR VOLUME 76.1 fL (80-94); MONOCYTES # (AUTO) 1.1 K/uL (0.8-1.0); MONOCYTES % (AUTO) 9.2 % (1.7-9.3); NEUTROPHILS # (AUTO) 7.9 K/uL (1.8-7.7); NEUTROPHILS % (AUTO) 68.5 % (42.2-75.2); PLATELET COUNT (AUTO) 214 K/uL (140-450); RED BLOOD CELL COUNT(AUTO) 5.65 MIL/uL (4.20-6.10); RED CELL DISTRIBUTION WIDTH 16.3 % (11.6-13.7); WHITE BLOOD COUNT (AUTO) 11.5 K/uL (4.8-10.8)
[2024-01-10 05:36] LABS: ANION GAP 11.7 (8-16); CALCIUM 9.1 mg/dL (8.5-10.1); CARBON DIOXIDE 27.9 mmol/L (21-32); CREATININE 0.9 mg/dL (0.6-1.3); POTASSIUM 3.6 mmol/L (3.5-5.1)
[2024-01-10 08:00] VITALS: BP 128/89; PULSE 88; PULSE 98; RESP 18; RESP 20; TEMP 98.3; O2SAT 94; O2SAT 95
[2024-01-10 16:00] VITALS: BP 125/92; PULSE 80; RESP 18; TEMP 98.1; O2SAT 96
[2024-01-10 20:00] VITALS: BP 133/85; PULSE 100; RESP 20; TEMP 98.5; O2SAT 96
[2024-01-11 04:00] VITALS: BP 128/80; PULSE 94; RESP 18; TEMP 98.2; O2SAT 94
[2024-01-11 05:25] LABS: BASOPHILS # (AUTO) 0.1 K/uL (0.00-0.22); BASOPHILS % (AUTO) 0.6 % (0.0-2.0); EOSINOPHILS # (AUTO) 0.4 K/uL (0-0.4); EOSINOPHILS % (AUTO) 3.5 % (0.0-4.0); HEMATOCRIT 42.4 % (36-52); HEMOGLOBIN 13.7 g/dL (12.0-18.0); LYMPHOCYTES % (AUTO) 19.1 % (20.5-51.1); MEAN CORPUSCULAR HEMOGLOBIN 25 pg (27-31); MEAN CORPUSCULAR HGB CONC 32 g/dL (33-37); MEAN CORPUSCULAR VOLUME 75.9 fL (80-94); MONOCYTES # (AUTO) 0.9 K/uL (0.8-1.0); MONOCYTES % (AUTO) 8.9 % (1.7-9.3); NEUTROPHILS # (AUTO) 7.1 K/uL (1.8-7.7); NEUTROPHILS % (AUTO) 67.9 % (42.2-75.2); PLATELET COUNT (AUTO) 206 K/uL (140-450); RED BLOOD CELL COUNT(AUTO) 5.59 MIL/uL (4.20-6.10); RED CELL DISTRIBUTION WIDTH 16.2 % (11.6-13.7); WHITE BLOOD COUNT (AUTO) 10.5 K/uL (4.8-10.8)
[2024-01-11 05:47] LABS: ANION GAP 10.2 (8-16); CARBON DIOXIDE 29.2 mmol/L (21-32); CREATININE 0.9 mg/dL (0.6-1.3); POTASSIUM 3.4 mmol/L (3.5-5.1)
[2024-01-11 08:00] VITALS: PULSE 85; RESP 18; TEMP 96.9; O2SAT 96
[2024-01-11] MEDS ORDERED: POTASSIUM CHLORIDE 20% 40 MEQ/15 ML UDC GT PRN (09:10)
[2024-01-11] MEDS: POTASSIUM CHLORIDE 20% 40 MEQ/15 ML UDC PO PRN (11:11)
[2024-01-11] MEDS ORDERED: CEFT1SOL1 IV (11:23)
[2024-01-11] MEDS ORDERED: [UNRECOGNIZED DRUG - CODE] IV (11:23)
[2024-01-11 16:00] VITALS: BP 120/80; PULSE 84; RESP 18; TEMP 97.6; O2SAT 100
== END 2024-01-11 18:35 | DRG 383 ==
LOC: MED 14:19 → MMU 18:39 → MTU 20:25
PROVIDERS: ADMIT Student in an Organized Health Care Education/Training Program; ATTEND Student in an Organized Health Care Education/Training Program
DX: L03.115 Cellulitis of right lower limb (principal); G82.20 Paraplegia, unspecified; I42.9 Cardiomyopathy, unspecified; E44.1 Mild protein-calorie malnutrition; I50.22 Chronic systolic (congestive) heart failure; I13.0 Hypertensive heart and chronic kidney disease with heart failure and stage 1 through stage 4 chronic kidney disease, or unspecified chronic kidney disease; E11.22 Type 2 diabetes mellitus with diabetic chronic kidney disease; D64.9 Anemia, unspecified; B19.20 Unspecified viral hepatitis C without hepatic coma; K74.60 Unspecified cirrhosis of liver; I73.9 Peripheral vascular disease, unspecified; N18.31 Chronic kidney disease, stage 3a; J44.9 Chronic obstructive pulmonary disease, unspecified; M16.11 Unilateral primary osteoarthritis, right hip; J44.89 Other specified chronic obstructive pulmonary disease; Z86.711 Personal history of pulmonary embolism; Z87.891 Personal history of nicotine dependence; Z79.899 Other long term (current) drug therapy; Z68.34 Body mass index [BMI] 34.0-34.9, adult; Z86.73 Personal history of transient ischemic attack (TIA), and cerebral infarction without residual deficits
CPT/HCPCS: 36415; 73502; 73701; 73702; 76881; 80048; 80053; 80202; 82948; 83605; 83735; 84100; 85025; 85651; 86140; 87040; 87070; 87075; 87081; 87086; 87186; 96360; 99285; J0696; J1815; J2543; J3372; J7060; Q0092; Q9967